=== PATIENT | male | born 1945 | race Caucasian/White ===

== ENCOUNTER → 2018-03-17 06:52 | Outpatient (CLI) | payer MEDICARE, OTHER, SELFPAY ==
[2018-03-17 07:45] LABS: Anion Gap 2 (5-15); BUN 16 mg/dL (7-18); BUN/Creat Ratio 11.3 RATIO (10-20); Calcium,Total 8.7 mg/dL (8.5-10.1); Chloride 109 mmol/L (98-107); Creatinine, Serum 1.41 mg/dL (0.70-1.30); EST Glomerular Filtration Rate 52 mL/min (>60); Est Glom Filt Rate - Afr Amer 63 mL/min (>60); Glucose 97 mg/dL (74-106); Potassium 3.9 mmol/L (3.5-5.1); Sodium Level 140 mmol/L (136-145)
[2018-03-17 08:07] LABS: AST(SGOT) 17 U/L (15-37); Alanine Aminotransfer ALT/SGPT 19 U/L (16-61); Albumin, Serum 3.7 g/dL (3.2-5.0); Alkaline Phosphatase 112 U/L (45-117); Bilirubin, Direct 0.11 mg/dL (0.00-0.30); Cholesterol 148 mg/dL (200); Globulin 3.8 g/dL (2.2-4.2); High Density Lipoprotein 54 mg/dL; Protein, Total 7.5 g/dL (6.4-8.2); Triglycerides 117 mg/dL; Very Low Density Lipoprotein 23 mg/dL (5-40)
[2018-03-17 09:21] LABS: Hemoglobin A1c 5.8 % (4.2-6.3)
== END ==
PROVIDERS: Family Provider Family Medicine; PCP Family Medicine; Visit Provider Internal Medicine Cardiovascular Disease
DX: E78.5 Hyperlipidemia, unspecified (principal); Z79.899 Other long term (current) drug therapy; R73.09 Other abnormal glucose
CPT/HCPCS: 36415; 80048; 80061; 80076; 83036

== ENCOUNTER 2018-03-29 18:59 | Emergency (ER) | payer MEDICARE, OTHER, SELFPAY ==
[2018-03-29 18:59] VITALS: BP 142/77; PULSE 58; RESP 16; TEMP 36.7; O2SAT 98; BMI 19.3
--- NOTE | 2018-03-29 19:12 | CT_ITS ---
STUDY: CT ABDOMEN AND PELVIS WITHOUT CONTRAST REASON FOR EXAM: Male, 72 years old. Low back pain and flank pain x1 month RADIATION DOSAGE (If Supplied By Facility): CTDIvol = ( 6.18 ) mGy, DLP = ( 307.12 ) mGycm TECHNIQUE: Transaxial images were obtained from the dome of the diaphragm to the symphysis pubis without oral contrast, and without intravenous contrast. Sagittal and coronal images were reconstructed. Individualized dose optimization techniques were used for this CT. COMPARISON: September 22, 2010 FINDINGS: The visualized lung bases are unremarkable. Pacer wires right heart. Normal liver. Normal gallbladder and extrahepatic biliary system. Normal spleen. Normal pancreas. Normal bilateral adrenal glands. 2 cm dense right renal cortical lesion may represent a hemorrhagic cyst. This is new since the previous exam however. Normal left kidney. Normal visualized stomach. Normal small intestine. Normal colon. The appendix is visualized and appears normal. Normal abdominal aorta. Normal inferior vena cava. Normal retroperitoneum. Normal urinary bladder. Normal abdominal wall. There are diffuse degenerative changes of the visualized lumbar spine. CT/Abdomen/Pelvis without Cont IMPRESSION: No acute disease. New 2 cm right renal mass. Recommend follow-up CT urogram to exclude neoplasm. Electronically Signed: Silvio Ravi MD at 20:40 EDT , Service support ,
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
--- NOTE | 2018-03-29 19:16 | RAD_ITS ---
STUDY: X-RAY - LUMBAR SPINE REASON FOR EXAM: Male, 72 years old. Low back pain TECHNIQUE: 3 view(s) of the lumbar spine were obtained. COMPARISON: None FINDINGS: Normal lumbar lordosis. There is no substantial scoliosis. There is a normal alignment of the vertebrae. There is multilevel endplate spondylosis of the lumbar vertebrae. There is multi-level degenerative disc disease with multi-level disc space narrowing. The soft tissue structures are unremarkable. RAD/Lumbar Spine 2 or 3 Views IMPRESSION: Degenerative changes of the spine, as detailed above. Electronically Signed: Silvio Ravi MD at 20:40 EDT , Service support ,
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
[2018-03-29 19:38] LABS: Absolute Lymphocyte Count 1.48 X10^3/ul (0.83-4.51); Absolute Neutrophil Count 3.9 X10^3/uL (2.0-7.7); Basophil# 0.05 X10^3/uL; Basophil% 0.8 % (0-1); Eosinophil# 0.16 X10^3/uL; Eosinophils% 2.6 % (0-5); Hemoglobin 13.8 g/dl (13.0-16.5); Lymphocyte # 1.48 X10^3/ul (4.0); Lymphocyte % 24.3 % (19-41); Mean Corp Hgb Conc 32.9 g/gl (32-36); Mean Corpuscular Hgb 30.5 pg (27.0-32.0); Mean Corpuscular Volume 92.7 fL (80-94); Mean Platelet Vol. 10.2 fl (6.2-12.0); Monocyte# 0.47 X10^3/uL; Monocyte% 7.7 % (0-10); Neutrophil # 3.93 X10^3/uL (2.7-7.7); Neutrophil % 64.4 % (47-70); Platelet Count 121 K/mm3 (150-450); RBC Distribution Width CV 13.8 % (11.6-14.6); RBC Distribution Width SD 46.8 fl (35.1-43.9); Red Blood Count 4.53 M/mm3 (4.6-6.2); White Blood Count 6.1 K/mm3 (4.4-11.0)
[2018-03-29] MEDS: Morphine 4 MG/ML Syringe 2 MG IV (19:38)
[2018-03-29] MEDS: Ondansetron 4 MG/2 ML Vial IV (19:39)
[2018-03-29 19:40] LABS: POSITIVE COUNT NO; POSITIVE DIFFERENTIAL NO; POSITIVE MORPHOLOGY NO
[2018-03-29 19:51] LABS: Anion Gap 6 (5-15); BUN 13 mg/dL (7-18); BUN/Creat Ratio 10.7 RATIO (10-20); Calcium,Total 8.8 mg/dL (8.5-10.1); Chloride 107 mmol/L (98-107); Creatinine, Serum 1.22 mg/dL (0.70-1.30); EST Glomerular Filtration Rate 62 mL/min (>60); Est Glom Filt Rate - Afr Amer 75 mL/min (>60); Glucose 86 mg/dL (74-106); Potassium 3.6 mmol/L (3.5-5.1); Sodium Level 141 mmol/L (136-145)
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
[2018-03-29 20:27] LABS: Bacteria 0 SEEN /hpf (None Seen); Mucous, Urine 0 SEEN /hpf (<or=2+); Squamous Epithelial Cells - UA 0 SEEN /hpf (0-5); White Blood Cells 0 SEEN /hpf (0-5)
[2018-03-29 20:38] LABS: Color, Urine Yellow (Yellow); Glucose, Dipstick Normal (Normal); Ketone-Dipstick Negative (Negative); Leukocyte Esterase-Dipstick Negative /ul (Negative); Nitrite-Dipstick Negative (Negative); Occult Blood-Urine 250 /ul (Negative); Protein-Dipstick Negative (Negative); Specific Gravity, Urine 1.015 (1.002-1.030); Urine Bilirubin Dipstick Negative (Negative); Urine Clarity Clear (Clear); Urine Urobilinogen Normal (Normal); Urine pH 6.5 (5.0 - 8.0)
[2018-03-29 20:46] LABS: Amphetamine Urine VISTA NEGATIVE (<1000 ng/mL); Barbiturate Urine VISTA NEGATIVE (< 200 ng/mL); Benzodiazepine Urine VISTA NEGATIVE (< 200 ng/mL); Cocaine Urine VISTA NEGATIVE (< 300 ng/mL); Ecstacy Urine VISTA NEGATIVE (< 500 ng/mL); Methadone Urine VISTA NEGATIVE (< 300 ng/mL); PCP Urine VISTA NEGATIVE (< 25 ng/mL); THC Urine VISTA NEGATIVE (< 50 ng/mL); Vista UDS pH Range 6
[2018-03-29 20:51] LABS: Red Blood Cells-Urine 10-25 SEEN /hpf (0-5)
--- NOTE | 2018-03-29 20:53 | NURSING ---
CALLED CRISIS WAITING FOR MILA TO CALL BACK
--- NOTE | 2018-03-29 21:21 | NURSING ---
MILA CALLED AT 2104 AND SAID SHE IS FINISHING UP AND CASE AND WILL BE IN SHORTLY
--- NOTE | 2018-03-29 23:21 | ED.DEP ---
ED Disposition - Plan for ED Patient: Chief Complaint: Back Instructions: ED Sprain Strain Lumbar Referrals: Jori Stevens MD [Primary Care Provider] -
[2018-03-30 00:21] VITALS: BP 125/61; PULSE 58; RESP 17; O2SAT 96
[2018-03-30 01:23] VITALS: BP 117/60; PULSE 61; RESP 18; O2SAT 97
--- NOTE | 2018-03-30 01:24 | ED.RN ---
PT AND PT EDUCATED ON DISCHARGE INSTRUCTIONS AND FOLLOW UP. MILA CRISIS COUNSELOR AT BEDSIDE TO SPEAK WITH PT. THIS RN GIVES PT AND PT COUNSELING CENTER BUSINESS CARD TO CALL SATURDAY FOR FOLLOW UP. PER MILA, I WILL CALL THE [facility] ON [address] AND LEAVE A VOICEMAIL AND FOLLOW UP WITH THE PT ON SATURDAY. GIVE HIM MY CARD. PT ND PT EDUCATED TO RETURN TO ER FOR ANY NEW OR WORSENED SX AND TO COME IMMEDIATELY TO ER IF THERE IS CONCERN FOR SAFETY/.WELL BEING. PT TO FOLLOW UP WITH DR. SANTIAGO FOR LUMBAR STRAIN. IV D/C AND COVERED WITH 2X2 GAUZE DRESSING AND PAPER TAPE. MINIMAL BLEEDING NOTED. PT DRESSES SELF AND AMBULATES OUT OF DEPT WITH .
== END 2018-03-30 01:34 | disposition home or self-care (01) ==
PROVIDERS: Emergency Provider Emergency Medicine; Family Provider Family Medicine; PCP Family Medicine
DX: S39.012A Strain of muscle, fascia and tendon of lower back, initial encounter (principal); X58.XXXA Exposure to other specified factors, initial encounter; Y93.11 Activity, swimming; Y92.9 Unspecified place or not applicable; Y99.9 Unspecified external cause status; N28.89 Other specified disorders of kidney and ureter; R45.1 Restlessness and agitation; I10 Essential (primary) hypertension; E78.00 Pure hypercholesterolemia, unspecified; K21.9 Gastro-esophageal reflux disease without esophagitis; Z79.899 Other long term (current) drug therapy
CPT/HCPCS: 72100; 74176; 80048; 80307; 80320; 81001; 85025; 96374; 96375; 99283; J7030; J7040; A4216; G0480

== ENCOUNTER → 2018-04-07 12:38 | Outpatient (CLI) | payer MEDICARE, OTHER, SELFPAY ==
--- NOTE | 2018-04-07 13:07 | CT_ITS ---
STUDY: CT ABDOMEN AND PELVIS WITH CONTRAST REASON FOR EXAM: Male, 72 years old. Renal mass RADIATION DOSAGE (If Supplied By Facility): CTDIvol = ( 14.56 ) mGy, DLP = ( 573.88 ) mGycm TECHNIQUE: Transaxial images were obtained from the dome of the diaphragm to the symphysis pubis with oral contrast. 100 ml of Isovue 300 contrast was administered. Sagittal and coronal images were reconstructed. This is a routine CT scan of the abdomen and pelvis. Renal mass protocol was not followed. Individualized dose optimization techniques were used for this CT. COMPARISON: March 29, 2018, September 22, 2010 CT scan abdomen and pelvis FINDINGS: There is a suggestion of air trapping in the lung bases. There is visualization of the defibrillator lead. Normal liver. Normal gallbladder and extrahepatic biliary system. Normal spleen. Normal pancreas. Normal bilateral adrenal glands. Again noted is a 2.5 x 2.2 x 1.6 cm hyperdense mass in the right kidney with Hounsfield units at 65 without contrast on the prior study March 29, 2018. It should be noted this is a portal venous phase study, early arterial and delayed imaging is not performed. After the administration of contrast the Hounsfield units are 65. Normal left kidney. There is a small hiatal hernia. Normal small intestine. Is abundant stool in the colon from the cecum to the rectum. There is contrast within the small and large bowel. There is non-visualization of the appendix. Aorta is partially calcified. Normal inferior vena cava. Normal retroperitoneum. There is a thick-walled appearance of the bladder measuring up to 5.4 mm with mild surrounding stranding. There is a prominent appearance of the seminal vesicles. There is a mildly inhomogeneous borderline enlarged enhancing appearance of the prostate. The prostate measures 4.8 x 3.2 cm. There are bilateral fatty inguinal hernias. There is multilevel disc space narrowing endplate sclerosis spondylosis and vacuum phenomenon. At L2-L3 there is disc space narrowing broad disc osteophyte complex mild to moderate neural foramina narrowing no significant central stenosis. At L3-L4 there is a minimal broad disc bulge without neural foraminal narrowing or central stenosis. At L4-L5 there is a broad disc bulge and mild to moderate neural foraminal narrowing or significant central stenosis. There is facet arthropathy. At L5-S1 there is a broad disc bulge mild neural foramina narrowing or significant central stenosis. There is degenerative change of the SI joints. The bones are somewhat osteopenic especially in the bilateral femoral heads. CT/Abdomen/Pelvis WITH Contrast IMPRESSION: Since September 22, 2010 there is been interval development fairly exophytic hyperdense circumscribed mass measuring 2.5 x 2.2 x 1.6 cm. The Hounsfield units are similar on the contrasted images as the noncontrasted images. This would suggest complexity of a complex cystic or potentially a solid mass. Could consider follow-up ultrasound of the kidneys and consideration for possible biopsy. A complex cyst or hemorrhagic cyst could potentially develop over time in nearly 8 years however well circumscribed neoplasm could potentially have this appearance. Findings are suspicious for cystitis. Prominence of the seminal vesicles, mild enlargement of the prostate. Electronically Signed: Alla Overton MD at 17:24 EDT Tel , Service support ,
== END ==
PROVIDERS: Family Provider Family Medicine; PCP Family Medicine; Visit Provider Family Medicine
DX: N39.0 Urinary tract infection, site not specified (principal); N28.89 Other specified disorders of kidney and ureter
CPT/HCPCS: 74177; 87086; 87088; 87186; Q9967

== ENCOUNTER → 2018-04-11 10:39 | Outpatient (CLI) | payer MEDICARE, OTHER, SELFPAY ==
--- NOTE | 2018-04-11 10:41 | US_ITS ---
STUDY: RENAL ULTRASOUND - COMPLETE REASON FOR EXAM: Male, 72 years old. History of right renal mass. TECHNIQUE: Ultrasound evaluation of the kidneys was performed with real-time and static amador-scale imaging. COMPARISON: Comparison is made with prior CT scan and abdomen dated April 07, 2018. FINDINGS: RIGHT KIDNEY: Normal location of the right kidney, which is normal in size. The right kidney measures 10.5 cm x 5.0 cm x 4.3 cm. There is a normal cortex of the right kidney. The renal cortex measures 1.3 cm. There is evidence of a 2.2 Enoc by 2.4 cm x 2.1 cm solid slightly echogenic mass arising from the lateral midportion of the left kidney. Increased flow is seen on Doppler examination. A neoplastic process should be ruled out. There are no right renal calculi. There is no right hydronephrosis. DISTAL RIGHT URETER: There is non-visualization of the distal right ureter. There is no demonstrated right ureterovesical junction calculus. There is a visualized right ureteral jet. LEFT KIDNEY: Normal location of the left kidney, which is normal in size. The left kidney measures 10.5 cm x 4.4 cm x 5.7 cm. There is a normal cortex of the left kidney. The renal cortex measures 2.5 cm. There is no left renal mass or cyst. There are no left renal calculi. There is no left hydronephrosis. DISTAL LEFT URETER: There is non-visualization of the distal left ureter. There is no demonstrated left ureterovesical junction calculus. There is a visualized left ureteral jet. BLADDER: The distended urinary bladder has a volume of 44 ml. There is a normal wall thickness of the distended urinary bladder. There is no demonstrated mass within the urinary bladder. There are no demonstrated bladder calculi. US/Kidney and Bladder IMPRESSION: 2.2 cm x 2.4 cm x 2.1 cm inhomogeneous solid mass arising from the mid lateral aspect of the right kidney. A neoplastic process should be ruled out. Electronically Signed: Manuelito Marte MD at 15:26 EDT Tel [phone], Service support ,
== END ==
PROVIDERS: Family Provider Family Medicine; PCP Family Medicine; Visit Provider Family Medicine
DX: N28.89 Other specified disorders of kidney and ureter (principal)
CPT/HCPCS: 76770

== ENCOUNTER → 2018-04-17 10:27 | Outpatient (CLI) | payer MEDICARE, OTHER, SELFPAY ==
--- NOTE | 2018-04-17 10:34 | ECHOD_ITS ---
Reason For Study: CARDIOMYOPATHY Procedure This was a 2D Doppler, Color Flow transthoracic echocardiogram. The exam was of adequate technical quality. Exam performed in department. Left Ventricle Normal LV size. Mild global left ventricular systolic dysfunction. The estimated ejection fraction is 40 %. Unable to assess diastolic dysfunction. Right Ventricle Normal RV size. ICD or pacer leads identified within the right ventricle. Normal systolic function. Atria Normal left atrium. The right atrium is mildly enlarged. ICD or pacer leads identified within the right atrium. No doppler evidence for ASD. Mitral Valve There is no mitral annular calcification. Mild diffuse mitral valve thickening. Mild mitral valve prolapse. Mild (1+) mitral valve insufficiency. Tricuspid Valve Normal tricuspid valve. Mild tricuspid valve insufficiency. Right ventricular systolic pressure estimated to be 21 mmHg. Aortic Valve Trisinus/trileaflet aortic valve. Mild diffuse aortic valve thickening. Pulmonic Valve The pulmonic valve is not well visualized. Great Vessels Mildly dilated aortic root. Mildly dilated ascending aorta. Pericardium/Pleural No pericardial effusion. MMode/2D Measurements & Calculations LVIDd: 5.3 cm IVSd: 0.95 cm Ao root diam: 4.1 cm LVIDs: 4.1 cm LVPWd: 0.92 cm LA dimension: 3.3 cm RVDd: 4.0 cm FS: 22.1 % LAV(MOD-bp): 57.7 ml LA A4 area: 17.0 cm2 RA A4 area: 22.7 cm2 LAV(MOD-bp) Indexed: 29.6 ml/m2 LAV(MOD-sp2): 68.9 ml LAV(MOD-sp4): 46.9 ml Doppler Measurements & Calculations MV E max jay: 41.1 cm/sec Lat Peak E' Jay: 4.5 cm/sec Med Peak E' Jay: 8.6 cm/sec MV A max jay: 35.3 cm/sec E/E' lat: 9.2 E/E' med: 4.8 MV E/A: 1.2 Ao V2 max: 74.4 cm/sec LV V1 max: 63.8 cm/sec PA V2 max: 60.8 cm/sec Ao max P.2 mmHg LV V1 max P.6 mmHg PI end-d jay: 76.6 cm/sec TR max jay: 209.3 cm/sec TR max P.5 mmHg Interpretation Summary Mild global left ventricular systolic dysfunction. The estimated ejection fraction is 40 %. The right atrium is mildly enlarged. Mild diffuse mitral valve thickening. Mild mitral valve prolapse. Mild (1+) mitral valve insufficiency. Mild tricuspid valve insufficiency. Mild diffuse aortic valve thickening. Mildly dilated aortic root. Mildly dilated ascending aorta. Right ventricular systolic pressure estimated to be 21 mmHg. Unable to assess diastolic dysfunction. Ordering Physician: Anupam Reece Referring Physician: Jori Stevens Performed By: Brii Keller RDCS, RVT
== END ==
PROVIDERS: Family Provider Family Medicine; PCP Family Medicine; Visit Provider Internal Medicine Cardiovascular Disease
DX: I47.1 Supraventricular tachycardia (principal); I42.9 Cardiomyopathy, unspecified; I71.2 Thoracic aortic aneurysm, without rupture
CPT/HCPCS: 93306

== ENCOUNTER → 2018-04-18 05:53 | Outpatient (CLI) | payer MEDICARE, OTHER, SELFPAY ==
[2018-04-18 07:18] LABS: Platelet Count 150 K/mm3 (150-450)
[2018-04-18 07:28] LABS: International Normalized Ratio 1.1; Partial Thromboplast Time 33.7 Seconds (24.1-36.2); Prothrombin Time (Protime)PT. 14.5 SECONDS (11.7-14.9)
== END ==
PROVIDERS: Family Provider Family Medicine; PCP Family Medicine; Visit Provider Family Medicine
DX: N28.89 Other specified disorders of kidney and ureter (principal)
CPT/HCPCS: 36415; 85049; 85610; 85730

== ENCOUNTER → 2018-04-22 07:47 | Outpatient (CLI) | payer MEDICARE, OTHER, SELFPAY ==
[2018-04-22] VITALS (11 sets, daily range): BP systolic 108–139; BP diastolic 42–78; PULSE 44–64; RESP 14–18; TEMP 36.6; O2SAT 98–100; BMI 18.7
--- NOTE | 2018-04-22 07:54 | CT_ITS ---
PROCEDURE: CT GUIDED PERCUTANEOUS KIDNEY BIOPSY. DATE: April 22, 2018. INDICATION: Male, 72 years old. Right renal mass PHYSICIAN: Manuelito Marte M.D. MEDICATIONS: 1 mg of Versed and 25 mcg of fentanyl intravenously for conscious sedation protocol was followed. Conscious sedation was started at 9:48 AM and terminated at 10:04 AM. Independent monitoring was performed by the department nurse. ACCESS SITE: Lower pole of the right kidney. NEEDLE: 18-gauge core biopsy needle. SPECIMEN: 4 18-gauge cores. EBL: None. COMPLICATIONS: None immediate. RADIATION DOSAGE (If Supplied By Facility): CTDIvol = ( 14.8 ) mGy, DLP = ( 630.46 ) mGycm The risks, benefits, and alternatives to the procedure and sedation were explained to the patient. The specific risk of hemorrhage requiring further treatment or intervention was detailed and accepted. Written informed consent was obtained. The patient was placed on the CT table in the prone position. Multiple axial images were obtained from the lung base through the caudal extent of the kidneys. An appropriate entry site was identified and a karoline made on the skin. The skin overlying the [ ] posterior flank was prepped and draped in sterile fashion. 1% lidocaine was administered subcutaneously for local anesthesia. Initially, a 22 gauge needle was advanced and CT images confirmed good needle position. The 22 gauge needle was then exchanged for an 17 gauge introducer needle which was advanced. Repeat CT images confirmed good needle trajectory and tip position. The introducer needle was then advanced into the periphery of the inferior renal pole, and CT images were again obtained to confirm exact tip location. The inner stylet of the introducer needle was then removed and an 18 gauge coaxial needle was advanced thru the introducer needle and biopsy performed. A total of [4 ] passes were performed and the specimen collected was sent to Pathology for further evaluation. The needle was withdrawn. Hemostasis was achieved with manual compression and a sterile dressing was applied. Repeat CT images of the biopsy area was performed which demonstrated no gross bleeding or hematoma. The patient tolerated the procedure well without immediate complications. The patient was transported to the [floor/recovery area] in stable condition. CT/Biopsy/Inj or Needle Placement IMPRESSION: Successful CT guided percutaneous kidney biopsy. Electronically Signed: Manuelito Marte MD at 10:39 EDT Tel [phone], Service support ,
--- NOTE | 2018-04-22 10:00 | KI_PTH ---
PATIENT: BENITO HILL LOC: CT U#:[id number] AGE/SX: 80/M ROOM: RE04/22/[address]: Dr. 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 COMMENT The tissue fragments received are very minute and represent a papillary renal lesion. The differential diagnosis includes papillary carcinoma, papillary adenoma, Xp11 translocation carcinoma, papillary oncocytoma and clear cell tubulopapillary carcinoma. This distinction cannot be accurately determined based on minute needle core biopsies. Clinical correlation is required. MICROSCOPIC DESCRIPTION Sections demonstrate very minute fragments of a papillary renal lesion demonstrating bland nuclei and extensive hemosiderin deposition. The remainder of the tissue submitted is adipose tissue. ELECTRON MICROSCOPY: The tissue submitted for electron microscopy is entirely composed of nondiagnostic fibroadipose tissue. Electron microscopy is not performed. GROSS DESCRIPTION The specimen is received in transport medium and consists of very minute fragments of adipose tissue and red-merida soft tissue measuring <1.0cms x <0.1cms. The specimen is divided for histology and electron microscopy. The specimen is sent entirely to [facility] for diagnosis.
== END ==
PROVIDERS: Family Provider Family Medicine; PCP Family Medicine; Visit Provider Family Medicine
DX: N28.89 Other specified disorders of kidney and ureter (principal)
CPT/HCPCS: 50200; 77012; 88305; 88313; 88346; 99156; 99157; J7040; A4216

== ENCOUNTER → 2018-05-07 12:28 | Outpatient (CLI) | payer MEDICARE, OTHER, SELFPAY ==
--- NOTE | 2018-05-07 12:30 | CT_ITS ---
STUDY: CTA CHEST REASON FOR EXAM: Male, 72 years old. Thoracic aortic aneurysm. RADIATION DOSAGE (If Supplied By Facility): CTDIvol = ( 6.73 ) mGy, DLP = ( 203.01 ) mGycm TECHNIQUE: The examination was performed with the intravenous administration of 100 ml of Isovue 370 contrast material. Post-processing of the angiographic images was performed, with multiplanar reformation and 3D reconstruction. Individualized dose optimization techniques were used for this CT. COMPARISON: 2 portable upright AP views of the chest March 04, 2017. FINDINGS: The generator of a cardiac pacemaker/AICD again noted in the soft tissues of the left anterior chest wall. Its lead passes from the left subclavian vein to the right ventricle. Normal enhancement of the main pulmonary artery and right and left pulmonary arteries. Normal enhancement of the bilateral peripheral pulmonary arteries. There is no demonstrated pulmonary embolism. The diameter of the aortic root is 4.4 x 4.75 cm (series 601 image 119, series 6 and image 154). The mid descending aorta is 3.75 x 3.8 cm (series 6 on image 110, series 602 image 149). There is mild atherosclerotic calcification of the aortic arch with tortuosity, which measures 2.8 x 2.7 cm. The mid descending thoracic aorta is 2.7 x 2.75 cm, and shows very mild atherosclerotic calcification. There is no demonstrated aortic dissection. Normal heart and pericardium. Coarse calcifications are noted in a subcarinal lymph node and right hilar node. Normal left hilum. Normal visualized trachea and bronchi. The lungs are well expanded. Emphysematous changes predominate in the upper lung pope. Mild irregular density consistent with chronic scarring seen in the anterolateral periphery of the right lung base, with some adjacent distortion of the pleural fissure. There are subtle groundglass densities of uncertain etiology and significance in the left upper lobe and left lower lobe at the mid chest. Punctate calcified granulomata seen in the anterior periphery of the right upper lobe (series 2 image 146 and (and in the posterior periphery of the superior segment of the left lower lobe (series 6 and image 214). Normal pleura. Normal chest wall structures. There are diffuse degenerative changes of the thoracic spine. Normal visualized upper abdomen. CT/CTA Chest W/WO Contrast IMPRESSION: 1. No demonstrated pulmonary embolism or arterial dissection. 2. Borderline distention of the aortic root, but the caliber of the remaining thoracic aorta is within normal limits. 3. Findings old calcified granulomatous disease, and focus of irregular scarring in the anterolateral periphery of the right lung base. 4. Emphysematous changes also present, predominating in the upper lung pope. 5. Subtle groundglass densities in the left midlung. A low-grade inflammatory process might have this appearance. 6. Left subclavian cardiac pacer/AICD present. Electronically Signed: Ryley Molina MD at 16:04 EDT , Service support ,
[2018-05-07 12:51] LABS: CREATININE FINGERSTICK 1.1 mg/dL (0.70-1.30); EGFR FINGERSTICK > 60.0000 mL/min (>60)
== END ==
PROVIDERS: Family Provider Family Medicine; PCP Family Medicine; Visit Provider Internal Medicine Cardiovascular Disease
DX: I71.2 Thoracic aortic aneurysm, without rupture (principal); I42.9 Cardiomyopathy, unspecified; I34.1 Nonrheumatic mitral (valve) prolapse; I49.3 Ventricular premature depolarization
CPT/HCPCS: 71275; Q9967

== ENCOUNTER 2018-07-02 16:33 | Inpatient (IN) | payer MEDICARE, OTHER, SELFPAY ==
[2018-06-26 10:06] VITALS: BP 121/69; PULSE 44; RESP 18; TEMP 36.8; O2SAT 99; BMI 19.9
--- NOTE | 2018-06-26 11:03 | RAD_ITS ---
STUDY: X-RAY CHEST REASON FOR EXAM: Male, 72 years old. Pre-op. TECHNIQUE: PA and lateral views of the chest. COMPARISON: CTA of the chest, May 07, 2018. Chest, March 04, 2017. FINDINGS: The lungs are hyperexpanded findings consistent with COPD. There is no new mass or infiltrate. There is no demonstrated pleural abnormality. Normal size heart. Stable cardiac pacemaker. Normal mediastinum and araceli. Normal visualized pulmonary arteries. There is atherosclerotic calcification of the aortic arch with tortuosity. There are diffuse degenerative changes of the visualized thoracic spine. Normal visualized ribs, clavicles, and shoulders. There is no demonstrated abnormality of the visualized soft tissue structures of the upper abdomen. RAD/Chest PA and Lateral IMPRESSION: No COPD without acute cardiopulmonary disease. Stable cardiac pacemaker. Electronically Signed: Mitchell Irving DO at 22:26 EDT Tel [phone], Service support ,
--- NOTE | 2018-06-26 11:13 | EKG12_ITS ---
Test Reason : PRE-OP Blood Pressure : / mmHG Vent. Rate : 042 BPM Atrial Rate : 042 BPM P-R Int : 198 ms QRS Dur : 104 ms QT Int : 502 ms P-R-T Axes : 083 039 076 degrees QTc Int : 419 ms Marked sinus bradycardia Septal infarct , age undetermined Abnormal ECG Confirmed by CHARLA GRAVES, STARR ([id number]), editor in chief JOÃO SANTIAGO ([id number]) on 06/30/2018 1:37:53 PM Referred By: Sander Pittman Confirmed By:STARR DUNHAM MD
[2018-06-26 11:41] LABS: Hematocrit 44.1 % (40-54); Hemoglobin 14.3 g/dl (13.0-16.5); Mean Corp Hgb Conc 32.4 g/gl (32-36); Mean Corpuscular Hgb 30.2 pg (27.0-32.0); Mean Corpuscular Volume 93.2 fL (80-94); Mean Platelet Vol. 10.8 fl (6.2-12.0); Platelet Count 106 K/mm3 (150-450); RBC Distribution Width CV 13.5 % (11.6-14.6); RBC Distribution Width SD 46.1 fl (35.1-43.9); Red Blood Count 4.73 M/mm3 (4.6-6.2); Scan Indicated on CBC? Y/N NO; White Blood Count 4.8 K/mm3 (4.4-11.0)
[2018-06-26 11:55] LABS: Color, Urine Yellow (Yellow); Glucose, Dipstick Normal (Normal); Ketone-Dipstick Negative (Negative); Leukocyte Esterase-Dipstick 25 /ul (Negative); Nitrite-Dipstick Negative (Negative); Occult Blood-Urine 25 /ul (Negative); Protein-Dipstick 15 mg/dl (Negative); Specific Gravity, Urine 1.015 (1.002-1.030); Urine Bilirubin Dipstick Negative (Negative); Urine Clarity Clear (Clear); Urine Urobilinogen Normal (Normal); Urine pH 6.5 (5.0 - 8.0)
[2018-06-26 12:31] LABS: ALB/GLOB Ratio 0.9 RATIO (0.9-2.4); AST(SGOT) 18 U/L (15-37); Alanine Aminotransfer ALT/SGPT 20 U/L (16-61); Albumin, Serum 3.6 g/dL (3.2-5.0); Alkaline Phosphatase 74 U/L (45-117); Anion Gap 6 (5-15); BUN 14 mg/dL (7-18); BUN/Creat Ratio 11.2 RATIO (10-20); Calcium,Total 8.7 mg/dL (8.5-10.1); Chloride 107 mmol/L (98-107); Creatinine, Serum 1.25 mg/dL (0.70-1.30); EST Glomerular Filtration Rate 60 mL/min (>60); Est Glom Filt Rate - Afr Amer 73 mL/min (>60); Globulin 4.1 g/dL (2.2-4.2); Glucose 63 mg/dL (74-106); Potassium 4.2 mmol/L (3.5-5.1); Protein, Total 7.7 g/dL (6.4-8.2); Sodium Level 142 mmol/L (136-145)
--- NOTE | 2018-06-26 14:55 | SDCEKG_ITS ---
Test Reason : Blood Pressure : / mmHG Vent. Rate : 043 BPM Atrial Rate : 043 BPM P-R Int : 162 ms QRS Dur : 084 ms QT Int : 500 ms P-R-T Axes : 071 036 075 degrees QTc Int : 422 ms Marked sinus bradycardia Low voltage QRS Septal infarct , age undetermined, cannot be excluded Abnormal ECG Confirmed by CHARLA GRAVES, STARR ([id number]), fan mail editor JOÃO SANTIAGO ([id number]) on 06/30/2018 2:33:28 PM Referred By: Sander Pittman Confirmed By:STARR DUNHAM MD
[2018-07-02] VITALS (18 sets, daily range): BP systolic 99–159; BP diastolic 50–126; PULSE 62–75; RESP 16–67; TEMP 35.9–36.9; O2SAT 94–100; BMI 19.9
--- NOTE | 2018-07-02 07:30 | KID_PTH ---
PATIENT: BENITO HILL LOC: [facility] U#:[id number] AGE/SX: 72/M ROOM: OR314 RE07/03/[address]: Dr. Sander Pittman MD : 1945 BED: 1 DIS: 07/04/2018 SPEC #: [id number] RECD: 07/02/18 11:05 STATUS: GRACE GASTELUM #: [id number] TRINA: 07/02/18 07:[address]: Sander Pittman DEPT: SURGICAL PATHOLOGY RECD BY: Dheeraj Blanton ENTERED: 07/02/18 13:04 SP TYPE: KIDNEY OTHR DR: Dr. 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 See cancer summary below. KIDNEY CANCER SUMMARY: Procedure ? partial nephrectomy Specimen laterality - right Tumor site ? not specified Tumor size ? 2.5 x 2 x 1 cm Tumor focality - unifocal Macroscopic extent of tumor ? tumor limited kidney Histologic type ? papillary renal cell carcinoma Sarcomatoid features ? not identified Tumor necrosis ? not identified Histologic grade (Ruy nuclear grade) - 2 Microscopic tumor extension ? tumor limited to kidney Margins ? margins uninvolved by invasive carcinoma Lymph-Vascular invasion ? not identified Regional lymph nodes ? no lymph nodes submitted or found. Distant metastasis ? not applicable Pathologic findings in non-neoplastic kidney ? insufficient tissue (partial nephrectomy specimen with <5 mm adjacent non-neoplastic kidney). Other tumor and/or tumor-like lesions ? not identified. See comment. PATHOLOGIC STAGE: pT1a pNx Mx The above summary is in compliance with [employer] (CAP) Cancer Protocols Checklist and [place] Joint Committee on Cancer (AJCC), Staging Manual, 8th Ed. SJ:brown 07/04/18 COMMENT Please make reference to previous specimen ([id number]) right renal mass, biopsy with diagnosis of very minute fragment of papillary renal lesion. The tumor shows extensive recent and old hemorrhage with extensive hemosiderin deposition. The tumor shows extensive chronic inflammation and lymphoid aggregate formation at the periphery of the tumor. Case has been reviewed in consultation with Dr. Sharma who concurs with the above diagnosis. IDC:AM MICROSCOPIC DESCRIPTION Slides are reviewed. GROSS DESCRIPTION Received in fixative is one container labeled with the patient's name and designated fractured tumor. The specimen consists of a previously opened tumor with overlying adipose tissue measuring 3.5 x 2.5 x 1.5 cm and weighing 4.7 gm. The surface with overlying adipose tissue is inked black. The previously opened congested and hemorrhagic tumor measures 2.5 x 2 x 1 cm. Also present in the container are detached pieces of congested and hemorrhagic tissue most likely portion of tumor measuring in aggregate 2 x 1 x 0.3 cm. The entire specimen is submitted as follows: 1-5 ? tumor with overlying adipose tissue from one end to another end, 6 ? detached pieces of tissue. / SJ:rg 07/03/18 TC:0 CPT: 97930
[2018-07-02] MEDS: Cefazolin 2 GM in 0.9% Normal Saline 100 ML IV (07:37)
[2018-07-02] MEDS: Bupivacaine Mpf 0.5% 30 ML VIAL (07:39)
--- NOTE | 2018-07-02 10:09 | PCM.OPRPT ---
Report of Operation Date of Procedure: 07/02/18 Pre-Operative Diagnosis: Right renal mass Post-Operative Diagnosis: Same Surgery/Procedure Performed:: Laparoscopic robotic-assisted right partial nephrectomy Description of Surgical Findings:: 72-year-old male who has a mass in the anterior lateral aspect of the right kidney biopsy was inconclusive but suspicious for cancer so today were to proceed with a right partial nephrectomy laparoscopic with robotic assistance. 72-year-old male taken back to the operating room timeout was performed, and transferred to the table supine, he underwent general anesthesia and placement of an endotracheal tube PEN TESTER was Negin the anesthesiologist with Dr. Elizondo, he was then positioned laterally on his left side down right side up the table was fully flexed he was padded with the top leg straight leg bent the arm out to the fleming and the other arm into the arm support. Made sure all the pressure points are padded. He had a magnet placed over his pacemaker and also had transthoracic paced pacing pads placed for caution. The abdomen was shaved prepped and draped in usual sterile fashion inspected the abdomen is very small scaphoid thin male very limited space in the abdomen made a small incision in the superior aspect of the umbilicus and used a Veress needle and pierced through the peritoneal fascia and into the peritoneum using the 2 click technique and once inside the peritoneum was insufflated the abdomen and the peritoneum and the abdomen is insufflated with CO2 gas quite rapidly rapid distention of the abdomen To the abdomen I then made an incision in the umbilicus and then placed my camera trocar trocar immediately recognized that there was small bowel right against the camera trocar had to push the hands down really far to get over the small bowel and then went looked inside the abdomen and inspected the abdomen there was no injuries or any sign of any injury to the intestines or bowels I then placed my right robotic arm my left robotic arm under direct visualization then placed an information technology assistant suction trocar and then once it was docked the right arm is a scissors left and is a pro-grasp and started dissection by first releasing the colon off the kidney incising the white line of Toldt dissected the colon off the kidney laterally I then went up and there was attachments between the liver and the kidney these were released and then I was able to retract the liver off the kidney superiorly and then the kidney introitus fascia was recognized I use a laparoscopic drop and ultrasound with a place an extra 1012 trocar above the midline laterally in order to allow for this laparoscopic ultrasound to come in and we did ultrasonography of the of the kidney and eventually located the tumor laterally anterior with minimal depth into the kidney. Then I dissected down incised through the Gerota's fascia, I then opened up the fascia all the way around the tumor and then dissected down to the capsule of the kidney and then I dissected so I could see the attachment of the tumor to the kidney circumferentially we used the ultrasound to karoline out her markings I then decided to go an off clamp with the dissection and we started teasing our way slowly around the tumor working broadly using suction to identify the proper plane as we got underneath the tumor there is a small violation of the tumor capsule and is a small rupture of the capsule this is immediately recognized course was then corrected for the downward and then I dissected underneath the tumor and then the tumor was then removed and the attachments posteriorly were identified and transected I then placed a fractured tumor into a bag and this was sent off as pathology specimen called fracture tumor since there was a violation of the tumor posteriorly and a fracture I then looked into the base cleared out any other tissue that looked like residual tumor but really got down to the base and there was a clean base cauterized the base extensively once cauterized extensively the base of second time to ensure adequate margins I then placed a Surgicel and FloSeal inside the base I then used a 9 cm CT1 needle with a Humalog clip at the end and suture sutured down with sliding technique to suture down and secure the Surgicel into the defect of the kidney where the tumor was removed. After this was done we lower the to 5 mm of pressure and there was no bleeding from the resection site of the kidney we then extracted the kidney through the 1012 trocar undocked the robot we then closed our umbilical trocar with a Ab Keenan stitch and closed the other potential trochars with a stitch I did put an extra Ab Keenan stitch also manually from the outside to close up the fascia of the umbilicus all the trochars removed under direct visualization there was no evidence of any injury or trauma or damage to the liver: Or bowel the small bowel was distended from the very beginning the case he did have a bowel prep. After this was done then we closed the skin with subcuticular stitches placed bandages on the skin and Steri-Strips patient's anesthetic was reversed he was extubated and taken back to the PACU in good condition. Type of Anesthesia:: General Drains: catalan. - Admit VTE Documentation VTE Present on Admission: No VTE Mechan Device Prophylaxis: SCD's VTE Pharm Prophylaxis ordered?: No Reason prophylaxis not ordered:: Medical Contraindication
[2018-07-02 11:48] LABS: Hematocrit 40.6 % (40-54); Hemoglobin 13.2 g/dl (13.0-16.5); Mean Corp Hgb Conc 32.5 g/gl (32-36); Mean Corpuscular Hgb 30.1 pg (27.0-32.0); Mean Corpuscular Volume 92.5 fL (80-94); Mean Platelet Vol. 10.8 fl (6.2-12.0); Platelet Count 66 K/mm3 (150-450); RBC Distribution Width CV 13.3 % (11.6-14.6); RBC Distribution Width SD 45.1 fl (35.1-43.9); Red Blood Count 4.39 M/mm3 (4.6-6.2); White Blood Count 5.3 K/mm3 (4.4-11.0)
[2018-07-02 11:49] LABS: Scan Indicated on CBC? Y/N NO
[2018-07-02 11:58] LABS: Anion Gap 9 (5-15); BUN 15 mg/dL (7-18); BUN/Creat Ratio 12.9 RATIO (10-20); Calcium,Total 8.1 mg/dL (8.5-10.1); Chloride 107 mmol/L (98-107); Creatinine, Serum 1.16 mg/dL (0.70-1.30); EST Glomerular Filtration Rate 66 mL/min (>60); Est Glom Filt Rate - Afr Amer 79 mL/min (>60); Estimated Creatinine Clearance 58.94 ml/min; Glucose 117 mg/dL (74-106); Sodium Level 142 mmol/L (136-145)
[2018-07-02] MEDS: Amiodarone 200 MG Tablet 100 MG PO (15:13)
[2018-07-02] MEDS: Metoprolol Tartrate 25 MG Tablet 12.5 MG PO ×2 (15:14→22:15)
[2018-07-02] MEDS: Acetaminophen 325 MG Tablet 650 MG PO (15:15)
--- NOTE | 2018-07-02 15:26 | NURSING ---
pt reports intermittent dizziness with movement. resting quietly with eyes closed but easily arouses. vitals checked and rechecked no gross deficits noted.
[2018-07-02] MEDS: Cefazolin 1 GM/50 ML BAG IV ×2 (15:34→23:18)
[2018-07-02] MEDS: Lactated Ringers 1,000 ML 125 ML IV (16:39)
[2018-07-02] MEDS: Atorvastatin Calcium 10 MG Tablet PO (22:15)
[2018-07-02] MEDS: Docusate Sodium 100 MG Capsule 200 MG PO (22:16)
[2018-07-02] MEDS: 0.9% NaCl Peripheral Flush Adult/Peds IV ×2 (22:17→22:27)
[2018-07-02] MEDS: Morphine 2 MG/ML Syringe IV (22:26)
[2018-07-03] VITALS (7 sets, daily range): BP systolic 99–116; BP diastolic 40–62; PULSE 50–58; RESP 16–18; TEMP 36.8–37.2; O2SAT 95–98
[2018-07-03] MEDS: Lactated Ringers 1,000 ML 125 ML IV ×3 (00:52→16:49)
[2018-07-03 06:27] LABS: Hematocrit 37.4 % (40-54); Hemoglobin 12.6 g/dl (13.0-16.5); Mean Corp Hgb Conc 33.7 g/gl (32-36); Mean Corpuscular Hgb 30.7 pg (27.0-32.0); Mean Platelet Vol. 10.6 fl (6.2-12.0); Platelet Count 82 K/mm3 (150-450); RBC Distribution Width CV 12.9 % (11.6-14.6); RBC Distribution Width SD 42.4 fl (35.1-43.9); Red Blood Count 4.11 M/mm3 (4.6-6.2); Scan Indicated on CBC? Y/N NO
[2018-07-03 06:38] LABS: Anion Gap 10 (5-15); BUN 20 mg/dL (7-18); BUN/Creat Ratio 16.8 RATIO (10-20); Calcium,Total 7.7 mg/dL (8.5-10.1); Chloride 104 mmol/L (98-107); Creatinine, Serum 1.19 mg/dL (0.70-1.30); EST Glomerular Filtration Rate 64 mL/min (>60); Est Glom Filt Rate - Afr Amer 77 mL/min (>60); Estimated Creatinine Clearance 57.45 ml/min; Glucose 119 mg/dL (74-106); Potassium 4.5 mmol/L (3.5-5.1); Sodium Level 139 mmol/L (136-145)
[2018-07-03] MEDS: Ketorolac 15 MG/ML Vial IV ×2 (08:19→22:44)
[2018-07-03] MEDS: Docusate Sodium 100 MG Capsule 200 MG PO ×2 (08:33→22:41)
--- NOTE | 2018-07-03 08:36 | NURSING ---
Clemente taken out at this time. Pt nervous about getting oob and started having hiccups. Nurses plan was to get him up and walk and sit in chair but pt refused despite encouragement. Is willing to try this afternoon.
--- NOTE | 2018-07-03 11:45 | NURSING ---
BP still continues to be on the lower side, this nurse will not give lopressor yet but will monitor bp.
[2018-07-03] MEDS: Amiodarone 200 MG Tablet 100 MG PO (12:07)
[2018-07-03] MEDS: Acetaminophen 325 MG Tablet 650 MG PO (12:11)
[2018-07-03] MEDS: Calcium Carbonate 500 MG Tablet PO (16:11)
--- NOTE | 2018-07-03 17:11 | NURSING ---
Pt has not voided since this nurse took catalan out this morning. This nurse had pt attempt to use urinal. Unable to use standing up. Bladder Scanned for 423cc. Pt feels urge to urinate. This nurse paged Dr. Pittman and informed him of the above. Orders to re-insert Catalan and Start flomax.
[2018-07-03] MEDS: Tamsulosin HCl 0.4 MG Capsule PO (17:46)
[2018-07-03] MEDS: Pantoprazole Sodium 40 MG Tablet PO (17:46)
[2018-07-03] MEDS: Metoprolol Tartrate 25 MG Tablet 12.5 MG PO (22:40)
[2018-07-03] MEDS: Atorvastatin Calcium 10 MG Tablet PO (22:40)
[2018-07-03] MEDS: 0.9% NaCl Peripheral Flush Adult/Peds IV (22:45)
[2018-07-04] MEDS: Lactated Ringers 1,000 ML 125 ML IV (01:32)
[2018-07-04 04:00] VITALS: BP 122/72; PULSE 52; RESP 16; TEMP 36.4; O2SAT 97
--- NOTE | 2018-07-04 08:27 | PCM.DC.URO ---
Discharge Diet: Light diet - advance as tolerated Discharge Activity: May Not Drive May shower in (days): 1 Lifting Restrictions: no lifting. Call your doctor if your incision/area has: Continuous Slow Oozing, Sudden Increased Bleeding, Increased Pain/ Swelling, Increased Redness, Foul Smelling Discharge, Swelling at the incision site Call your doctor if you observe: Fever of 101 or Higher Suture Line Care: Avoid Pulling/Pushing, Avoid Pinching/Bending Instructions: Discharge Instructions for Nephrectomy Allergies/Adverse Reactions: Allergies No Known Allergies Allergy (Verified 03/29/18 19:12) Medications to take at Discharge Acetaminophen [Tylenol Arthritis] 650 mg PO PRN PRN 03/09/14 Aspirin [Aspirin, Baby] 81 mg PO DAILY@0800 03/09/14 metoprolol tartrate 25 mg tablet 12.5 mg PO BID #90 tab 11/04/17 simvastatin 20 mg tablet 20 mg PO QHS #90 tab 12/18/17 amiodarone 200 mg tablet 100 mg PO DAILY #45 tab 03/10/18 potassium chloride 40 mEq/15 mL oral liquid 40 meq PO QDAY #1419 ml 05/30/18 Docusate Sodium [Colace] 100 mg PO BID #20 cap 07/04/18 Hydrocodone/Acetaminophen [[employer] 5-325 Tablet] 1 ea PO Q6H PRN PRN 5 Days #10 tab 07/04/18 The following prescriptions were given: Hydrocodone/Acetaminophen [[employer] 5-325 Tablet] 1 ea PO Q6H PRN PRN 5 Days #10 tab PRN Reason: Pain Docusate Sodium [Colace] 100 mg PO BID #20 cap Primary Care Physician: Jori Stevens MD [Primary Care Provider] - Test Results: Test results from this visit will be discussed in further detail at your follow-up appointment, if applicable. Please Follow Up With: Sander Pittman MD When: please call to make an appointment.
[2018-07-04 08:54] VITALS: BP 104/61; PULSE 55; RESP 18; TEMP 36.6; O2SAT 97
[2018-07-04] MEDS: Bisacodyl 10 MG Suppository RECTAL (08:57)
[2018-07-04] MEDS: Amiodarone 200 MG Tablet 100 MG PO (08:58)
[2018-07-04] MEDS: Docusate Sodium 100 MG Capsule 200 MG PO (08:58)
[2018-07-04] MEDS: Pantoprazole Sodium 40 MG Tablet PO (09:00)
--- NOTE | 2018-07-04 09:13 | PCM.DC.SUM ---
Discharge Date and Diagnosis Date of Admission: 07/02/18 Date of Discharge: 07/04/18 - Secondary Discharge Diagnosis Chronic Problems (Last Reviewed 03/26/18 @ 14:59 by Meena Pavon) Presence of cardiac defibrillator (Chronic) Nonrheumatic mitral (valve) prolapse (Chronic) Premature ventricular contraction (Chronic) Cardiomyopathy (Chronic) Hyperlipidemia (Chronic) Hypertension (Chronic) Thoracic aortic aneurysm without rupture (Chronic) Hospital Course and Treatment Operations: - - Robotic right partial nephrectomy Procedures: None Summary of Care Provided: The patient is a 72 year old male who underwent a robotic right partial nephrectomy for renal mass, final pathology pending. He was discharged home on postoperative day #2 tolerating regular diet ambulating catheter would be removed for voiding trial he will follow-up next week in my office. Discharge Diet: Light diet - advance as tolerated Discharge Activity: May Not Drive May shower in (days): 1 Call your doctor if your incision/area has: Continuous Slow Oozing, Sudden Increased Bleeding, Increased Pain/ Swelling, Increased Redness, Foul Smelling Discharge, Swelling at the incision site Call your doctor if you observe: Fever of 101 or Higher Suture Line Care: Avoid Pulling/Pushing, Avoid Pinching/Bending Home Medications: Medications to take at Discharge Acetaminophen [Tylenol Arthritis] 650 mg PO PRN PRN 03/09/14 Aspirin [Aspirin, Baby] 81 mg PO DAILY@0800 03/09/14 metoprolol tartrate 25 mg tablet 12.5 mg PO BID #90 tab 11/04/17 simvastatin 20 mg tablet 20 mg PO QHS #90 tab 12/18/17 amiodarone 200 mg tablet 100 mg PO DAILY #45 tab 03/10/18 potassium chloride 40 mEq/15 mL oral liquid 40 meq PO QDAY #1419 ml 05/30/18 Docusate Sodium [Colace] 100 mg PO BID #20 cap 07/04/18 Hydrocodone/Acetaminophen [[place] 5-325 Tablet] 1 ea PO Q6H PRN PRN 5 Days #10 tab 07/04/18 Following Prescrptions Were Given to Patient: Hydrocodone/Acetaminophen [[place] 5-325 Tablet] 1 ea PO Q6H PRN PRN 5 Days #10 tab PRN Reason: Pain Docusate Sodium [Colace] 100 mg PO BID #20 cap Primary Care Physician: Jori Stevens MD [Primary Care Provider] - Please Follow Up With: Sander Pittman MD When: please call to make an appointment. Patient Instructions: Discharge Instructions for Nephrectomy Medical Necessity - Tobacco Use Smoking Status: Former smoker Meaningful Use Info Meaningful Use Diagnoses (Choose all that apply): None applicable
--- NOTE | 2018-07-04 09:53 | NURSING ---
Cornejo out at 0900 and pt walked in [place] and now sitting in chair. encouraged I.S and to drink water.
[2018-07-04 11:36] VITALS: PULSE 58
[2018-07-04] MEDS: Metoprolol Tartrate 25 MG Tablet 12.5 MG PO (11:36)
--- NOTE | 2018-07-04 11:40 | NURSING ---
Pt walked in [place] again. Is now sitting up and eating regular diet. Pt voided 400cc of urine on own. Denies feelings of urge to void after voiding.
[2018-07-04 11:41] VITALS: BP 104/72; PULSE 58; RESP 18; TEMP 36.4; O2SAT 96
== END 2018-07-04 12:27 | disposition home or self-care (01) | DRG 657 ==
LOC: SDC 16:44 → MS3 07-03 06:41
PROVIDERS: Admitting Provider Urology; Family Provider Family Medicine; PCP Family Medicine; Visit Provider Urology
PROC: (CPT 50543; principal; 2018-07-02 07:10)
DX: D41.01 Neoplasm of uncertain behavior of right kidney (principal); I42.9 Cardiomyopathy, unspecified; E78.5 Hyperlipidemia, unspecified; I71.2 Thoracic aortic aneurysm, without rupture; Z95.810 Presence of automatic (implantable) cardiac defibrillator; I10 Essential (primary) hypertension; Z87.891 Personal history of nicotine dependence; I49.3 Ventricular premature depolarization
CPT/HCPCS: 36415; 71046; 80048; 80053; 81002; 85027; 86850; 86900; 86920; 86922; 88307; 93005; J7120; A4216; J2405

== ENCOUNTER → 2018-07-16 07:31 | Outpatient (CLI) | payer MEDICARE, OTHER, SELFPAY ==
[2018-07-16 08:19] LABS: Hemoglobin 13.2 g/dl (13.0-16.5); Mean Corpuscular Hgb 30.3 pg (27.0-32.0); Mean Platelet Vol. 10.3 fl (6.2-12.0); Platelet Count 130 K/mm3 (150-450); RBC Distribution Width CV 13.2 % (11.6-14.6); RBC Distribution Width SD 43.4 fl (35.1-43.9); Red Blood Count 4.35 M/mm3 (4.6-6.2); White Blood Count 5.4 K/mm3 (4.4-11.0)
[2018-07-16 08:20] LABS: Scan Indicated on CBC? Y/N NO
[2018-07-16 08:41] LABS: Anion Gap 9 (5-15); BUN 14 mg/dL (7-18); BUN/Creat Ratio 11.5 RATIO (10-20); Calcium,Total 8.9 mg/dL (8.5-10.1); Chloride 106 mmol/L (98-107); Creatinine, Serum 1.22 mg/dL (0.70-1.30); EST Glomerular Filtration Rate 62 mL/min (>60); Est Glom Filt Rate - Afr Amer 75 mL/min (>60); Glucose 99 mg/dL (74-106); Potassium 4.1 mmol/L (3.5-5.1); Sodium Level 142 mmol/L (136-145)
== END ==
PROVIDERS: Family Provider Family Medicine; PCP Family Medicine; Visit Provider Urology
DX: C64.9 Malignant neoplasm of unspecified kidney, except renal pelvis (principal); Z90.5 Acquired absence of kidney
CPT/HCPCS: 36415; 80048; 85027

== ENCOUNTER → 2018-10-08 16:22 | Outpatient (CLI) | payer MEDICARE, OTHER, SELFPAY ==
--- NOTE | 2018-10-08 16:24 | CT_ITS ---
WORSENING MATA'S RT FRONTAL TECHNIQUE: Multiple axial images were obtained of the brain with and without IV contrast. A radiation dose optimization technique was used for this scan. IV Contrast dosage and agent: 50 cc Isovue 370 contrast COMPARISON: None FINDINGS: Mild cerebral cortical atrophy. Normal ventricles. No hydrocephalus. Castanon-white matter differentiation appears normal. No intracranial mass, hemorrhage, or acute disease. Posterior fossa structures are on remarkable. No suspicious extra-axial fluid collection. Left carotid atherosclerotic calcifications. As visualized, the mastoids and paranasal sinuses appear clear. CT/Brain/Head W/WO Contrast IMPRESSION: 1. No hemorrhage or acute disease. 2. Mild cerebral cortical atrophy. Individualized dose optimization techniques were used for this CT. at 0309 Reported and signed by: Martin Riley MD Electronically Signed: Martin Riley, at 3:07 EST Tel , Service support ,
[2018-10-08 16:41] LABS: CREATININE FINGERSTICK 0.9 mg/dL (0.70-1.30)
== END ==
PROVIDERS: Family Provider Family Medicine; PCP Family Medicine; Referring Provider Family Medicine; Visit Provider Family Medicine
DX: R51 Headache (principal)
CPT/HCPCS: 70470; Q9967

== ENCOUNTER → 2018-10-23 11:00 | Outpatient (CLI) | payer MEDICARE, OTHER, SELFPAY ==
--- NOTE | 2018-10-23 11:14 | RAD_ITS ---
STUDY: X-RAY CHEST REASON FOR EXAM: Male, 73 years old. History of renal cancer TECHNIQUE: PA and lateral views of the chest. COMPARISON: Comparison is made with prior study dated June 26, 2018. FINDINGS: Hyperinflation. Stable bilateral apical scarring. There is no demonstrated pleural abnormality. Normal size heart. A right-sided unipolar pacemaker is seen. Normal mediastinum and araceli. Normal visualized pulmonary arteries. There is atherosclerotic calcification of the aortic arch with tortuosity. There are diffuse degenerative changes of the visualized thoracic spine. Normal visualized ribs, clavicles, and shoulders. There is no demonstrated abnormality of the visualized soft tissue structures of the upper abdomen. RAD/Chest PA and Lateral IMPRESSION: Hyperinflation. Electronically Signed: Manuelito Marte MD at 13:03 EST Tel [phone], Service support ,
[2018-10-23 12:36] LABS: Hematocrit 43.6 % (40-54); Hemoglobin 14.4 g/dl (13.0-16.5); Mean Corpuscular Volume 93.8 fL (80-94); Mean Platelet Vol. 11.2 fl (6.2-12.0); Platelet Count 117 K/mm3 (150-450); RBC Distribution Width CV 13.4 % (11.6-14.6); RBC Distribution Width SD 44.4 fl (35.1-43.9); Red Blood Count 4.65 M/mm3 (4.6-6.2); White Blood Count 4.8 K/mm3 (4.4-11.0)
[2018-10-23 12:37] LABS: Scan Indicated on CBC? Y/N NO
[2018-10-23 13:18] LABS: Anion Gap 6 (5-15); BUN 17 mg/dL (7-18); BUN/Creat Ratio 14.2 RATIO (10-20); Chloride 106 mmol/L (98-107); EST Glomerular Filtration Rate 63 mL/min (>60); Est Glom Filt Rate - Afr Amer 76 mL/min (>60); Glucose 69 mg/dL (74-106); Potassium 4.4 mmol/L (3.5-5.1); Sodium Level 140 mmol/L (136-145)
--- OUTSIDE RECORDS SUMMARY | 2018-12-18 13:44 | XMS RPT_ITS ---
:1945 Author Organization [place] Support Name Relationship Address Phone JEREMY HILL Unavailable [address] + [place] [address] R Unavailable Unavailable Unavailable JEREMY HILL Unavailable [address] + [place] [address] R Unavailable Unavailable Unavailable JEREMY HILL Unavailable [address] + [place] [address] R Unavailable Unavailable Unavailable JEREMY HILL Unavailable [address] + [place] [address] R Unavailable Unavailable Unavailable JEREMY HILL Unavailable [address] + [place] [address] R Unavailable Unavailable Unavailable JEREMY HILL Unavailable [address] [phone] [place] [address] R Unavailable Unavailable Unavailable JEREMY HILL Unavailable [address] + [place] [address] R Unavailable Unavailable Unavailable JEREMY HILL Unavailable [address] + [place] [address] R Unavailable Unavailable Unavailable JEREMY HILL Unavailable [address] + [place] [address] R Unavailable Unavailable Unavailable JEREMY HILL Unavailable [address] + [place] [address] R Unavailable Unavailable Unavailable JEREMY HILL Unavailable [address] + [place] [address] R Unavailable Unavailable Unavailable JEREMY HILL Unavailable [address] + [place] [address] R Unavailable Unavailable Unavailable JEREMY HILL Unavailable [address] [phone] [place] [address] R Unavailable Unavailable Unavailable JEREMY HILL Unavailable [address] + [place] [address] R Unavailable Unavailable Unavailable JEREMY HILL Unavailable [address] [phone] [place] [address] R Unavailable Unavailable Unavailable JEREMY HILL Unavailable [address] + [place] [address] R Unavailable Unavailable Unavailable JEREMY HILL Unavailable [address] + [place] [address] R Unavailable Unavailable Unavailable Care Team Providers Name Role Phone Meena Pavon Attending Unavailable Moodispaw, Anupam Attending Unavailable Moodispaw, Anupam Referring Unavailable Stevens, Jori Primary Care Unavailable Poppy Colón Attending Unavailable Stevens, Jori Referring Unavailable Stevens, Jori Primary Care Unavailable Moodispaw, Anupam Attending Unavailable Stevens, Jori Referring Unavailable Stevens, Jori Primary Care Unavailable Stevens, Jori Primary Care Unavailable Laura Doe Attending Unavailable Stevens, Jori Attending Unavailable Stevens, Jori Referring Unavailable Stevens, Jori Primary Care Unavailable Stevens, Jori Attending Unavailable Stevens, Jori Referring Unavailable Stevens, Jori Primary Care Unavailable Moodispaw, Anupam Attending Unavailable Moodispaw, Anupam Referring Unavailable Stevens, Jori Primary Care Unavailable Stevens, Jori Attending Unavailable Stevens, Jori Referring Unavailable Stevens, Jori Primary Care Unavailable Stevens, Jori Attending Unavailable Stevens, Jori Referring Unavailable Stevens, Jori Primary Care Unavailable Moodispaw, Anupam Attending Unavailable Moodispaw, Anupam Referring Unavailable Stevens, Jori Primary Care Unavailable Moodispanick, Anupam Attending Unavailable Toya, Sander Cunningham Attending Unavailable Toya, Sander Cunningham Referring Unavailable Stevens, Jori Primary Care Unavailable Toya, Sander Cunningham Admitting Unavailable Toya, Sander Cunningham Attending Unavailable Stevens, Jori Primary Care Unavailable MoodispawAnupam Attending Unavailable Toya, Sander Cunningham Referring Unavailable Stevens, Jori Attending Unavailable Stevens, Jori Referring Unavailable Stevens, Jori Primary Care Unavailable Toya, Sander Cunningham Attending Unavailable Toya, Sander Cunningham Referring Unavailable Stevens, Jori Primary Care Unavailable PROBLEMS PROBLEMS DATE TYPE CONDITION / CODE ATTENDING STATUS SOURCE 10/23/2018 Unknown Z85.528 - Personal Sander Pittman Active [place] history of other [facility] malignant neoplasm of Hospital kidney / Repository Z85.528(ICD-10) 10/23/2018 Unknown C64.9 - Malignant Toya, Sander Active [place] neoplasm of [facility] unspecified kidney, Hospital except renal pelvis / Repository C64.9(ICD-10) 07/04/2018 Unknown R93.429 - Abnormal Sander Pittman Active [place] radiologic findings on [facility] diagnostic imaging of Hospital unspecified kidney / Repository R93.429(ICD-10) 07/31/2018 Unknown R94.31 - Abnormal Moodispaw, Active [place] electrocardiogram [facility] [ECG] [EKG] / Hospital R94.31(ICD-10) Repository 07/31/2018 Unknown R00.1 - Bradycardia, Moodispaw, Active [place] unspecified / [facility] R00.1(ICD-10) Hospital Repository 04/22/2018 Unknown N28.89 - Other Jori Stevens Active [place] specified disorders of [facility] kidney and ureter / Hospital N28.89(ICD-10) Repository 03/26/2018 Unknown I47.1 - Moodispaw, Active [place] Supraventricular [facility] tachycardia / Hospital I47.1(ICD-10) Repository 03/26/2018 Unknown I47.2 - Ventricular Moodispaw, Active [place] tachycardia / [facility] I47.2(ICD-10) Hospital Repository 03/26/2018 Unknown Z95.810 - Presence of Moodispaw, Active [place] automatic [facility] (implantable) cardiac Hospital defibrillator / Repository Z95.810(ICD-10) 03/26/2018 Unknown I42.9 - Moodispaw, Active [place] Cardiomyopathy, [facility] unspecified / Hospital I42.9(ICD-10) Repository PROCEDURES PROCEDURES No Procedure Records FoundRESULTS RESULTS CHEST PA AND LATERAL Observed: 10/23/2018 Status: F Source: [place] 11:14 AM [facility] REPOSITORY [facility] Imaging Services [address] [place] [address] Chest PA and Lateral MR#: [id number] Acct: [id number] Name: BENITO HILL Rep #: [id number] : 1945 M 73 From: Manuelito Marte MD PCP: Jori Stevens MD Status: REG CLI Study: Chest PA and Lateral Date of Exam: 10/23/18 Exam# [id number] Ordering Dr: Sander Pittman MD STUDY: X-RAY CHEST REASON FOR EXAM: Male, 73 years old. History of renal cancer TECHNIQUE: PA and lateral views of the chest. COMPARISON: Comparison is made with prior study dated June 26, 2018. FINDINGS: Hyperinflation. Stable bilateral apical scarring. There is no demonstrated pleural abnormality. Normal size heart. A right-sided unipolar pacemaker is seen. Normal mediastinum and araceli. Normal visualized pulmonary arteries. There is atherosclerotic calcification of the aortic arch with tortuosity. There are diffuse degenerative changes of the visualized thoracic spine. Normal visualized ribs, clavicles, and shoulders. There is no demonstrated abnormality of the visualized soft tissue structures of the upper abdomen. RAD/Chest PA and Lateral IMPRESSION: Hyperinflation. Electronically Signed: Manuelito Marte MD at 13:03 EST Tel [phone], Service support , CC: Jori Stevens MD; Sander Pittman MD Paving Plant Operator: Signed CBC-COMPLETE BLOOD CNT Collected: 10/23/2018 Status: F Source: [place] NO DIFF 11:07 AM [facility] TYPE CODE TESTS RESULT OUT OF RANGE REFERENCE UNITS LAB L100.1000 4.4-11.0 K/mm3 Normal WBC 4.8 LAB L100.1200 4.6-6.2 M/mm3 Normal RBC 4.65 LAB L100.1300 13.0-16.5 g/dl Normal HGB 14.4 LAB L100.1400 40-54 % Normal HCT 43.6 LAB L100.1500 80-94 fL Normal MCV 93.8 LAB L100.1600 27.0-32.0 pg Normal MCH 31.0 LAB L100.1700 32-36 g/gl Normal MCHC 33.0 LAB L100.1810 11.6-14.6 % Normal RDW CV 13.4 LAB L100.1820 35.1-43.9 fl High RDW SD 44.4 LAB L100.1900 150-450 K/mm3 Low PLT 117 LAB L100.2000 6.2-12.0 fl Normal MPV 11.2 Performed By: #### L100.0500 #### [facility] [address] [place], [place], [address] BASIC METABOLIC Collected: 10/23/2018 Status: F Source: [place] PROFILE (BMP) 11:07 AM [facility] TYPE CODE TESTS RESULT OUT OF RANGE REFERENCE UNITS LAB L501.0100 74-106 mg/dL Low GLU 69 Result Comment: Please note revised GLUCOSE reference range effective 2017. LAB L501.1000 7-18 mg/dL Normal BUN 17 LAB L501.1100 0.70-1.30 mg/dL Normal CREAT,SERUM 1.20 Result Comment: The validity of the calculated GFR AND GFRAA in patients over 70 years has not been determined. Clinical correlation is essential. LAB L501.1110 >60 mL/min Normal EST GFR 63 Result Comment: Non- GFR Calc LAB L501.1115 >60 mL/min Normal EST GFR - AA 76 Result Comment: GFR Calc LAB L501.1300 10-20 RATIO Normal BUN/CRE 14.2 LAB L501.2200 8.5-10.1 mg/dL CA Normal 9.0 LAB L501.5300 136-145 mmol/L NA Normal 140 LAB L501.5600 3.5-5.1 mmol/L K Normal 4.4 LAB L501.5900 98-107 mmol/L CL Normal 106 LAB L501.6100 21.0-32.0 mmol/L Normal CO2 28.0 LAB L501.6200 5-15 Normal GAP 6 Performed By: #### L500.2500 #### [facility] [address] [place], [place], [address] CREATININE FINGERSTICK Collected: 10/08/2018 Status: F Source: [place] 4:38 PM [facility] TYPE CODE TESTS RESULT OUT OF RANGE REFERENCE UNITS LAB L9100.0210 0.70-1.30 mg/dL Normal CREATININE WB 0.9 Performed By: #### L9100.0200 #### [facility] Point of Care [address] [place] [address] BRAIN/HEAD W/WO Observed: 10/08/2018 Status: F Source: [place] CONTRAST 4:24 PM [facility] Imaging Services [address] [place] [address] Brain/Head W/WO Contrast MR#: [id number] Acct: [id number] Name: BENITO HILL Rep #: [id number] : 1945 M 73 From: Martin Riley MD PCP: Jori Stevens MD Status: REG CLI Study: Brain/Head W/WO Contrast Date of Exam: 10/08/18 Exam# [id number] Ordering Dr: Jori Stevens MD WORSENING MATA'S RT FRONTAL TECHNIQUE: Multiple axial images were obtained of the brain with and without IV contrast. A radiation dose optimization technique was used for this scan. IV Contrast dosage and agent: 50 cc Isovue 370 contrast COMPARISON: None FINDINGS: Mild cerebral cortical atrophy. Normal ventricles. No hydrocephalus. Castanon-white matter differentiation appears normal. No intracranial mass, hemorrhage, or acute disease. Posterior fossa structures are on remarkable. No suspicious extra-axial fluid collection. Left carotid atherosclerotic calcifications. As visualized, the mastoids and paranasal sinuses appear clear. CT/Brain/Head W/WO Contrast IMPRESSION: 1. No hemorrhage or acute disease. 2. Mild cerebral cortical atrophy. Individualized dose optimization techniques were used for this CT. at 0309 Reported and signed by: Martin Riley MD Electronically Signed: Martin Riley, at 3:07 EST Tel , Service support , CC: Jori Stevens MD Paving Plant Operator: Signed CBC-COMPLETE BLOOD CNT Collected: 07/16/2018 Status: F Source: [place] NO DIFF 7:37 AM [facility] TYPE CODE TESTS RESULT OUT OF RANGE REFERENCE UNITS LAB L100.1000 4.4-11.0 K/mm3 Normal WBC 5.4 LAB L100.1200 4.6-6.2 M/mm3 Low RBC 4.35 LAB L100.1300 13.0-16.5 g/dl Normal HGB 13.2 LAB L100.1400 40-54 % Normal HCT 40.0 LAB L100.1500 80-94 fL Normal MCV 92.0 LAB L100.1600 27.0-32.0 pg Normal MCH 30.3 LAB L100.1700 32-36 g/gl Normal MCHC 33.0 LAB L100.1810 11.6-14.6 % Normal RDW CV 13.2 LAB L100.1820 35.1-43.9 fl Normal RDW SD 43.4 LAB L100.1900 150-450 K/mm3 Low PLT 130 LAB L100.2000 6.2-12.0 fl Normal MPV 10.3 Performed By: #### L100.0500 #### [facility] [address] [place], [address] BASIC METABOLIC Collected: 07/16/2018 Status: F Source: [place] PROFILE ([facility]) 7:37 AM [facility] TYPE CODE TESTS RESULT OUT OF RANGE REFERENCE UNITS LAB L501.0100 74-106 mg/dL Normal GLU 99 Result Comment: Please note revised GLUCOSE reference range effective 2017. LAB L501.1000 7-18 mg/dL Normal BUN 14 LAB L501.1100 0.70-1.30 mg/dL Normal CREAT,SERUM 1.22 Result Comment: The validity of the calculated GFR AND GFRAA in patients over 70 years has not been determined. Clinical correlation is essential. LAB L501.1110 >60 mL/min Normal EST GFR 62 Result Comment: Non- GFR Calc LAB L501.1115 >60 mL/min Normal EST GFR - AA 75 Result Comment: GFR Calc LAB L501.1300 10-20 RATIO Normal BUN/CRE 11.5 LAB L501.2200 8.5-10.1 mg/dL CA Normal 8.9 LAB L501.5300 136-145 mmol/L NA Normal 142 LAB L501.5600 3.5-5.1 mmol/L K Normal 4.1 LAB L501.5900 98-107 mmol/L CL Normal 106 LAB L501.6100 21.0-32.0 mmol/L Normal CO2 27.0 LAB L501.6200 5-15 Normal GAP 9 Performed By: #### L500.2500 #### [facility] [address] [place], [address] DISCHARGE SUMMARY Observed: 07/04/2018 Status: F Source: [place] 9:14 AM [facility] Medical Records Department [address] [place] [address] Discharge Summary 07/04/18 0913 MR#: [id number] Acct: [id number] Name: BENITO HILL Rep #: [id number] : 1945 72 From: Sander Pittman MD PCP: Jori Stevens MD Status: ADM KARYN Y Location: [place] [id number] Discharge Date and Diagnosis Date of Admission: 07/02/18 Date of Discharge: 07/04/18 - Secondary Discharge Diagnosis Chronic Problems (Last Reviewed 03/26/18 @ 14:59 by Meena Pavon) Presence of cardiac defibrillator (Chronic) Nonrheumatic mitral (valve) prolapse (Chronic) Premature ventricular contraction (Chronic) Cardiomyopathy (Chronic) Hyperlipidemia (Chronic) Hypertension (Chronic) Thoracic aortic aneurysm without rupture (Chronic) Hospital Course and Treatment Operations: - - Robotic right partial nephrectomy Procedures: None Summary of Care Provided: The patient is a 72 year old male who underwent a robotic right partial nephrectomy for renal mass, final pathology pending. He was discharged home on postoperative day #2 tolerating regular diet ambulating catheter would be removed for voiding trial he will follow-up next week in my office. Discharge Diet: Light diet - advance as tolerated Discharge Activity: May Not Drive May shower in (days): 1 Call your doctor if your incision/area has: Continuous Slow Oozing, Sudden Increased Bleeding, Increased Pain/ Swelling, Increased Redness, Foul Smelling Discharge, Swelling at the incision site Call your doctor if you observe: Fever of 101 or Higher Suture Line Care: Avoid Pulling/Pushing, Avoid Pinching/Bending Home Medications: Medications to take at Discharge Acetaminophen [Tylenol Arthritis] 650 mg PO PRN PRN 03/09/14 Aspirin [Aspirin, Baby] 81 mg PO DAILY@0800 03/09/14 metoprolol tartrate 25 mg tablet 12.5 mg PO BID #90 tab 11/04/17 simvastatin 20 mg tablet 20 mg PO QHS #90 tab 12/18/17 amiodarone 200 mg tablet 100 mg PO DAILY #45 tab 03/10/18 potassium chloride 40 mEq/15 mL oral liquid 40 meq PO QDAY #1419 ml 05/30/18 Docusate Sodium [Colace] 100 mg PO BID #20 cap 07/04/18 Hydrocodone/Acetaminophen [Anthony 5-325 Tablet] 1 ea PO Q6H PRN PRN 5 Days #10 tab 07/04/18 Following Prescrptions Were Given to Patient: Hydrocodone/Acetaminophen [Anthony 5-325 Tablet] 1 ea PO Q6H PRN PRN 5 Days #10 tab PRN Reason: Pain Docusate Sodium [Colace] 100 mg PO BID #20 cap Primary Care Physician: Jori Stevens MD [Primary Care Provider] - Please Follow Up With: Sander Pittman MD When: please call to make an appointment. Patient Instructions: Discharge Instructions for Nephrectomy Medical Necessity - Tobacco Use Smoking Status: Former smoker Meaningful Use Info Meaningful Use Diagnoses (Choose all that apply): None applicable 07/04/18913 <Electronically signed by Sander Pittman MD> Date Sander Pittman MD Cosigner Signature (if applicable): Date CC: Jori Stevens MD; Sander Pittman MD Signed DISCHARGE INSTRUCTION Observed: 07/04/2018 Status: F Source: [place] 8:29 AM [facility] Medical Records Department [address] [place] [address] Instructions for Home/Discharge Instructions 07/04/1827 MR#: [id number] Acct: [id number] Name: BENITO HILL Rep #: [id number] : 1945 72 From: Sander Pittman MD PCP: Jori Stevens MD Status: ADM KAYRN Discharge Diet: Light diet - advance as tolerated Discharge Activity: May Not Drive May shower in (days): 1 Lifting Restrictions: no lifting. Call your doctor if your incision/area has: Continuous Slow Oozing, Sudden Increased Bleeding, Increased Pain/ Swelling, Increased Redness, Foul Smelling Discharge, Swelling at the incision site Call your doctor if you observe: Fever of 101 or Higher Suture Line Care: Avoid Pulling/Pushing, Avoid Pinching/Bending Instructions: Discharge Instructions for Nephrectomy Allergies/Adverse Reactions: Allergies No Known Allergies Allergy (Verified 03/29/18 19:12) Medications to take at Discharge Acetaminophen [Tylenol Arthritis] 650 mg PO PRN PRN 03/09/14 Aspirin [Aspirin, Baby] 81 mg PO DAILY@0800 03/09/14 metoprolol tartrate 25 mg tablet 12.5 mg PO BID #90 tab 11/04/17 simvastatin 20 mg tablet 20 mg PO QHS #90 tab 12/18/17 amiodarone 200 mg tablet 100 mg PO DAILY #45 tab 03/10/18 potassium chloride 40 mEq/15 mL oral liquid 40 meq PO QDAY #1419 ml 05/30/18 Docusate Sodium [Colace] 100 mg PO BID #20 cap 07/04/18 Hydrocodone/Acetaminophen [Anthony 5-325 Tablet] 1 ea PO Q6H PRN PRN 5 Days #10 tab 07/04/18 The following prescriptions were given: Hydrocodone/Acetaminophen [Anthony 5-325 Tablet] 1 ea PO Q6H PRN PRN 5 Days #10 tab PRN Reason: Pain Docusate Sodium [Colace] 100 mg PO BID #20 cap Primary Care Physician: Jori Stevens MD [Primary Care Provider] - Test Results: Test results from this visit will be discussed in further detail at your follow-up appointment, if applicable. Please Follow Up With: Sander Pittman MD When: please call to make an appointment. 07/04/18828 <Electronically signed by Sander Pittman MD> Date Sander Pittman MD CC: Jori Stevens MD CBC-COMPLETE BLOOD CNT Collected: 07/03/2018 Status: F Source: [place] NO DIFF 5:50 AM [facility] TYPE CODE TESTS RESULT OUT OF RANGE REFERENCE UNITS LAB L100.1000 4.4-11.0 K/mm3 Normal WBC 10.0 LAB L100.1200 4.6-6.2 M/mm3 Low RBC 4.11 LAB L100.1300 13.0-16.5 g/dl Low HGB 12.6 LAB L100.1400 40-54 % Low HCT 37.4 LAB L100.1500 80-94 fL Normal MCV 91.0 LAB L100.1600 27.0-32.0 pg Normal MCH 30.7 LAB L100.1700 32-36 g/gl Normal MCHC 33.7 LAB L100.1810 11.6-14.6 % Normal RDW CV 12.9 LAB L100.1820 35.1-43.9 fl Normal RDW SD 42.4 LAB L100.1900 150-450 K/mm3 Low PLT 82 LAB L100.2000 6.2-12.0 fl Normal MPV 10.6 Performed By: #### L100.0500 #### [facility] [address] [place], [address] BASIC METABOLIC Collected: 07/03/2018 Status: F Source: [place] PROFILE ([facility]) 5:50 AM [facility] TYPE CODE TESTS RESULT OUT OF RANGE REFERENCE UNITS LAB L501.0100 74-106 mg/dL High GLU 119 Result Comment: Fasting Glucose result from 100 to 125 mg/dL suggests IMPAIRED HOMEOSTASIS per A.D.A. criteria. Please note revised GLUCOSE reference range effective 2017. LAB L501.1000 7-18 mg/dL High BUN 20 LAB L501.1100 0.70-1.30 mg/dL Normal CREAT,SERUM 1.19 Result Comment: The validity of the calculated GFR AND GFRAA in patients over 70 years has not been determined. Clinical correlation is essential. LAB L501.1110 >60 mL/min Normal EST GFR 64 Result Comment: Non- GFR Calc LAB L501.1115 >60 mL/min Normal EST GFR - AA 77 Result Comment: GFR Calc LAB L501.1255 ml/min Normal Estimated CRCL 57.45 LAB L501.1300 10-20 RATIO Normal BUN/CRE 16.8 LAB L501.2200 8.5-10 mg/dL Low .1 CA 7.7 LAB L501.5300 136-14 mmol/L Normal 5 NA 139 LAB L501.5600 3.5-5. mmol/L Normal 1 K 4.5 LAB L501.5900 98-107 mmol/L Normal CL 104 LAB L501.6100 21.0-3 mmol/L Normal 2.0 CO2 25.0 LAB L501.6200 5-15 Normal GAP 10 Performed By: #### L500.2500 #### [facility] [address] [place], [place], [address] CBC-COMPLETE BLOOD CNT Collected: 07/02/2018 Status: F Source: [place] NO DIFF 11:28 AM [facility] Order Comment: Comments: To be done in PACU TYPE CODE TESTS RESULT OUT OF RANGE REFERENCE UNITS LAB L100.1000 4.4-11.0 K/mm3 Normal WBC 5.3 LAB L100.1200 4.6-6.2 M/mm3 Low RBC 4.39 LAB L100.1300 13.0-16.5 g/dl Normal HGB 13.2 LAB L100.1400 40-54 % Normal HCT 40.6 LAB L100.1500 80-94 fL Normal MCV 92.5 LAB L100.1600 27.0-32.0 pg Normal MCH 30.1 LAB L100.1700 32-36 g/gl Normal MCHC 32.5 LAB L100.1810 11.6-14.6 % Normal RDW CV 13.3 LAB L100.1820 35.1-43.9 fl High RDW SD 45.1 LAB L100.1900 150-450 K/mm3 Low PLT 66 LAB L100.2000 6.2-12.0 fl Normal MPV 10.8 Performed By: #### L100.0500 #### [facility] [address] [facility]. [place], [place], [address] BASIC METABOLIC Collected: 07/02/2018 Status: F Source: [place] PROFILE (BMP) 11:28 AM [facility] Order Comment: TO BE DONE IN PACU Comments: To be done in PACU TYPE CODE TESTS RESULT OUT OF RANGE REFERENCE UNITS LAB L501.0100 74-106 mg/dL High GLU 117 Result Comment: Fasting Glucose result from 100 to 125 mg/dL suggests IMPAIRED HOMEOSTASIS per A.D.A. criteria. Please note revised GLUCOSE reference range effective 2017. LAB L501.1000 7-18 mg/dL Normal BUN 15 LAB L501.1100 0.70-1.30 mg/dL Normal CREAT,SERUM 1.16 Result Comment: The validity of the calculated GFR AND GFRAA in patients over 70 years has not been determined. Clinical correlation is essential. LAB L501.1110 >60 mL/min Normal EST GFR 66 Result Comment: Non- GFR Calc LAB L501.1115 >60 mL/min Normal EST GFR - AA 79 Result Comment: GFR Calc LAB L501.1255 ml/min Normal Estimated CRCL 58.94 LAB L501.1300 10-20 RATIO Normal BUN/CRE 12.9 LAB L501.2200 8.5-10 mg/dL Low .1 CA 8.1 LAB L501.5300 136-14 mmol/L Normal 5 NA 142 LAB L501.5600 3.5-5. mmol/L Normal 1 K 4.0 LAB L501.5900 98-107 mmol/L Normal CL 107 LAB L501.6100 21.0-3 mmol/L Normal 2.0 CO2 26.0 LAB L501.6200 5-15 Normal GAP 9 Performed By: #### L500.2500 #### [facility] [address] [facility] [place], [address] OPERATIVE REPORT Observed: 07/02/2018 Status: F Source: [place] 10:18 AM [facility] Medical Records Department [address] [place] [address] Operative Report 07/02/18 1009 MR#: [id number] Acct: [id number] Name: BENITO HILL Adilia Rep #: [id number] : 1945 72 From: Sander Pittman MD PCP: Jori Stevens MD Status: [facility] Y Location: [place] [address] Report of Operation Date of Procedure: 07/02/18 Pre-Operative Diagnosis: Right renal mass Post-Operative Diagnosis: Same Surgery/Procedure Performed:: Laparoscopic robotic-assisted right partial nephrectomy Description of Surgical Findings:: 72-year-old male who has a mass in the anterior lateral aspect of the right kidney biopsy was inconclusive but suspicious for cancer so today were to proceed with a right partial nephrectomy laparoscopic with robotic assistance. 72-year-old male taken back to the operating room timeout was performed, and transferred to the table supine, he underwent general anesthesia and placement of an endotracheal tube AUDIOLOGY TECHNICIAN was Negin the anesthesiologist with Dr. Elizondo, he was then positioned laterally on his left side down right side up the table was fully flexed he was padded with the top leg straight leg bent the arm out to the fleming and the other arm into the arm support. Made sure all the pressure points are padded. He had a magnet placed over his pacemaker and also had transthoracic paced pacing pads placed for caution. The abdomen was shaved prepped and draped in usual sterile fashion inspected the abdomen is very small scaphoid thin male very limited space in the abdomen made a small incision in the superior aspect of the umbilicus and used a Veress needle and pierced through the peritoneal fascia and into the peritoneum using the 2 click technique and once inside the peritoneum was insufflated the abdomen and the peritoneum and the abdomen is insufflated with CO2 gas quite rapidly rapid distention of the abdomen To the abdomen I then made an incision in the umbilicus and then placed my camera trocar trocar immediately recognized that there was small bowel right against the camera trocar had to push the hands down really far to get over the small bowel and then went looked inside the abdomen and inspected the abdomen there was no injuries or any sign of any injury to the intestines or bowels I then placed my right robotic arm my left robotic arm under direct visualization then placed an budget assistant suction trocar and then once it was docked the right arm is a scissors left and is a pro-grasp and started dissection by first releasing the colon off the kidney incising the white line of Toldt dissected the colon off the kidney laterally I then went up and there was attachments between the liver and the kidney these were released and then I was able to retract the liver off the kidney superiorly and then the kidney introitus fascia was recognized I use a laparoscopic drop and ultrasound with a place an extra 1012 trocar above the midline laterally in order to allow for this laparoscopic ultrasound to come in and we did ultrasonography of the of the kidney and eventually located the tumor laterally anterior with minimal depth into the kidney. Then I dissected down incised through the Gerota's fascia, I then opened up the fascia all the way around the tumor and then dissected down to the capsule of the kidney and then I dissected so I could see the attachment of the tumor to the kidney circumferentially we used the ultrasound to karoline out her markings I then decided to go an off clamp with the dissection and we started teasing our way slowly around the tumor working broadly using suction to identify the proper plane as we got underneath the tumor there is a small violation of the tumor capsule and is a small rupture of the capsule this is immediately recognized course was then corrected for the downward and then I dissected underneath the tumor and then the tumor was then removed and the attachments posteriorly were identified and transected I then placed a fractured tumor into a bag and this was sent off as pathology specimen called fracture tumor since there was a violation of the tumor posteriorly and a fracture I then looked into the base cleared out any other tissue that looked like residual tumor but really got down to the base and there was a clean base cauterized the base extensively once cauterized extensively the base of second time to ensure adequate margins I then placed a Surgicel and FloSeal inside the base I then used a 9 cm CT1 needle with a Humalog clip at the end and suture sutured down with sliding technique to suture down and secure the Surgicel into the defect of the kidney where the tumor was removed. After this was done we lower the to 5 mm of pressure and there was no bleeding from the resection site of the kidney we then extracted the kidney through the 1012 trocar undocked the robot we then closed our umbilical trocar with a Ab Keenan stitch and closed the other potential trochars with a stitch I did put an extra Ab Keenan stitch also manually from the outside to close up the fascia of the umbilicus all the trochars removed under direct visualization there was no evidence of any injury or trauma or damage to the liver: Or bowel the small bowel was distended from the very beginning the case he did have a bowel prep. After this was done then we closed the skin with subcuticular stitches placed bandages on the skin and Steri-Strips patient's anesthetic was reversed he was extubated and taken back to the PACU in good condition. Type of Anesthesia:: General Drains: catalan. - Admit VTE Documentation VTE Present on Admission: No VTE Mechan Device Prophylaxis: SCD's VTE Pharm Prophylaxis ordered?: No Reason prophylaxis not ordered:: Medical Contraindication 07/02/18 1018 <Electronically signed by Sander Pittman MD> Date Sander Pittman MD CC: Jori Stevens MD; Sander Pittman MD Signed KIDNEY PARTIAL/TOTAL Observed: 07/02/2018 Status: F Source: DC NEPHRECT 7:30 AM [facility] Patient: BENITO HILL : 1945 (72/M) Acct Num: [id number] Phys: Toya GRAVES,Sander Cunningham Unit Num: [id number] Loc: MS3 [id number] Specimen: [id number] Received: 07/02/18 - 1105 Spec Type: KIDNEY TISSUES TISSUES: Kidney, NOS COMMENT Please make reference to previous specimen ([id number]) right renal mass, biopsy with diagnosis of very minute fragment of papillary renal lesion. The tumor shows extensive recent and old hemorrhage with extensive hemosiderin deposition. The tumor shows extensive chronic inflammation and lymphoid aggregate formation at the periphery of the tumor. Case has been reviewed in consultation with Dr. Sharma who concurs with the above diagnosis. IDC:AM GROSS DESCRIPTION Received in fixative is one container labeled with the patient's name and designated fractured tumor. The specimen consists of a previously opened tumor with overlying adipose tissue measuring 3.5 x 2.5 x 1.5 cm and weighing 4.7 gm. The surface with overlying adipose tissue is inked black. The previously opened congested and hemorrhagic tumor measures 2.5 x 2 x 1 cm. Also present in the container are detached pieces of congested and hemorrhagic tissue most likely portion of tumor measuring in aggregate 2 x 1 x 0.3 cm. The entire specimen is submitted as follows: 1-5 tumor with overlying adipose tissue from one end to another end, 6 detached pieces of tissue. / LARA:brown 07/03/18 TC :0 CPT: 39721 HEADER OPERATION: Laparoscopic robotic partial right nephrectomy PRE-OP DIAGNOSIS: Renal mass TISSUE SUBMITTED: Fractured tumor MICROSCOPIC DESCRIPTION Slides are reviewed. 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 See cancer summary below. KIDNEY CANCER SUMMARY: Procedure partial nephrectomy Specimen laterality - right Tumor site not specified Tumor size 2.5 x 2 x 1 cm Tumor focality - unifocal Macroscopic extent of tumor tumor limited kidney Histologic type papillary renal cell carcinoma Sarcomatoid features not identified Tumor necrosis not identified Histologic grade (Ruy nuclear grade) - 2 Microscopic tumor extension tumor limited to kidney Margins margins uninvolved by invasive carcinoma Lymph-Vascular invasion not identified Regional lymph nodes no lymph nodes submitted or found. Distant metastasis not applicable Pathologic findings in non-neoplastic kidney insufficient tissue (partial nephrectomy specimen with <5 mm adjacent non-neoplastic kidney). Other tumor and/or tumor-like lesions not identified. See comment. PATHOLOGIC STAGE: pT1a pNx Mx The above summary is in compliance with [employer] (CAP) Cancer Protocols Checklist and [place] Joint Committee on Cancer (AJCC), Staging Manual, 8th Ed. SJ:brown 07/04/18 Signed Suresh Morales 07/07/18 <signature on file> Performed By: #### PKID #### [facility] [address] [place], [address] 12 LEAD ELECTROCARDIOGRAM Observed: 06/30/2018 Status: F Source: [place] 2:33 PM [facility] Cardiovascular Services [address] [place] [address] EKG - [facility] 06/26/18 0947 MR#: [id number] Acct: [id number] Name: BENITO HILL Rep #: [id number] : 1945 72 From: Anupam Dunham MD Attending Dr: Sander Pittman MD Status: PRE [facility] Ordering Dr: Sander Pittman MD Date: 06/26/18 Location: [facility] Sex: M C Admitted: Test Reason : Blood Pressure : / mmHG Vent. Rate : 043 BPM Atrial Rate : 043 BPM P-R Int : 162 ms QRS Dur : 084 ms QT Int : 500 ms P-R-T Axes : 071 036 075 degrees QTc Int : 422 ms Marked sinus bradycardia Low voltage QRS Septal infarct , age undetermined, cannot be excluded Abnormal ECG Confirmed by ANUPAM DUNHAM MD ([id number]), editor producer JOÃO STEVENS ([id number]) on 06/30/2018 2:33:28 PM Referred By: Sander Pittman Confirmed By:ANUPAM DUNHAM MD 06/30/18 1433 Date Anupam Dunham MD CC: Jori Stevens MD; Sander Pittman MD Date Dictated: 06/26/1847 Date Transcribed: 06/26/18946 Paving Plant Operator: Signed 12 LEAD ELECTROCARDIOGRAM Observed: 06/30/2018 Status: F Source: DC 1:38 PM [facility] Cardiovascular Services [address] [place] [address] 12 Lead EKG 06/26/18 1121 MR#: [id number] Acct: [id number] Name: BENITO HILL Rep #: [id number] : 1945 72 From: Anupam Dunham MD Attending Dr: Toya GRAVES,Sander Cunningham Status: PRE SDC Ordering Dr: Sander Pittman MD Date: 06/26/18 Location: [facility] Sex: M C Admitted: Test Reason : PRE-OP Blood Pressure : / mmHG Vent. Rate : 042 BPM Atrial Rate : 042 BPM P-R Int : 198 ms QRS Dur : 104 ms QT Int : 502 ms P-R-T Axes : 083 039 076 degrees QTc Int : 419 ms Marked sinus bradycardia Septal infarct , age undetermined Abnormal ECG Confirmed by ANUPAM DUNHAM MD ([id number]), editor producer JOÃO STEVENS ([id number]) on 06/30/2018 1:37:53 PM Referred By: Sander Pittman Confirmed By:ANUPAM DUNHAM MD 06/30/18 1338 Date Anupam Dunham MD CC: Jori Stevens MD; Sander Pittman MD Signed CHEST PA AND LATERAL Observed: 06/26/2018 Status: F Source: DC 11:02 AM [facility] REPOSITORY [facility] Imaging Services [address] [place] [address] Chest PA and Lateral MR#: [id number] Acct: [id number] Name: BENITO HILL Rep #: [id number] : 1945 72 From: Mitchell Irving DO PCP: Jori Stevens MD Status: PRE HIC Study: Chest PA and Lateral Date of Exam: 06/26/18 Exam# [id number] Ordering Dr: Sander Pittman MD STUDY: X-RAY CHEST REASON FOR EXAM: Male, 72 years old. Pre-op. TECHNIQUE: PA and lateral views of the chest. COMPARISON: CTA of the chest, May 07, 2018. Chest, March 04, 2017. FINDINGS: The lungs are hyperexpanded findings consistent with COPD. There is no new mass or infiltrate. There is no demonstrated pleural abnormality. Normal size heart. Stable cardiac pacemaker. Normal mediastinum and araceli. Normal visualized pulmonary arteries. There is atherosclerotic calcification of the aortic arch with tortuosity. There are diffuse degenerative changes of the visualized thoracic spine. Normal visualized ribs, clavicles, and shoulders. There is no demonstrated abnormality of the visualized soft tissue structures of the upper abdomen. RAD/Chest PA and Lateral IMPRESSION: No COPD without acute cardiopulmonary disease. Stable cardiac pacemaker. Electronically Signed: Mitchell Irving DO at 22:26 EDT Tel [phone], Service support , CC: Jori Stevens MD; Sander Pittman MD Paving Plant Operator: Signed CBC-COMPLETE BLOOD CNT Collected: 06/26/2018 Status: F Source: DC NO DIFF 10:46 AM [facility] TYPE CODE TESTS RESULT OUT OF RANGE REFERENCE UNITS LAB L100.1000 4.4-11.0 K/mm3 Normal WBC 4.8 LAB L100.1200 4.6-6.2 M/mm3 Normal RBC 4.73 LAB L100.1300 13.0-16.5 g/dl Normal HGB 14.3 LAB L100.1400 40-54 % Normal HCT 44.1 LAB L100.1500 80-94 fL Normal MCV 93.2 LAB L100.1600 27.0-32.0 pg Normal MCH 30.2 LAB L100.1700 32-36 g/gl Normal MCHC 32.4 LAB L100.1810 11.6-14.6 % Normal RDW CV 13.5 LAB L100.1820 35.1-43.9 fl High RDW SD 46.1 LAB L100.1900 150-450 K/mm3 Low PLT 106 LAB L100.2000 6.2-12.0 fl Normal MPV 10.8 Performed By: #### L100.0500 #### [facility] [address] [place], [address] URINALYSIS, ROUTINE Collected: 06/26/2018 Status: F Source: [place] (DIPSTICK) 10:46 AM [facility] Order Comment: How was Urine Obtained? CLEAN CATCH TYPE CODE TESTS RESULT OUT OF RANGE REFERENCE UNITS LAB L400.3000 Yellow COLOR Normal Yellow LAB L400.3050 Clear Normal CLARITY Clear LAB L400.3200 Normal mg/dl Normal GLUCOSE, UR Normal LAB L400.3300 Negative mg/dL Normal BILIRUBIN URINE Negative LAB L400.3400 Negative mg/dl Normal KETONE UR Negative LAB L400.3465 1.002-1.030 Normal SP.GR. DIPSTX 1.015 LAB L400.3550 5.0 - 8.0 pH UR Normal 6.5 LAB L400.3600 Negative mg/dl High PROT 15 DIPSTX LAB L400.3700 Normal mg/dl Normal UROBILI Normal LAB L400.3750 Negative Normal NITRITE UR Negative LAB L400.3780 Negative /ul High 25 OCCULT BLOOD-UR LAB L400.3800 Negative /ul High LEUK 25 ESTERASE Performed By: #### L400.2010 #### [facility] [address] [place], [address] COMPREHENSIVE METABOLIC Collected: 06/26/2018 Status: F Source: DC [place] 10:46 AM [facility] TYPE CODE TESTS RESULT OUT OF RANGE REFERENCE UNITS LAB L501.0100 74-106 mg/dL Low GLU 63 Result Comment: Please note revised GLUCOSE reference range effective 2017. LAB L501.1000 7-18 mg/dL Normal BUN 14 LAB L501.1100 0.70-1.30 mg/dL Normal CREAT,SERUM 1.25 Result Comment: The validity of the calculated GFR AND GFRAA in patients over 70 years has not been determined. Clinical correlation is essential. LAB L501.1110 >60 mL/min Normal EST GFR 60 Result Comment: Non- GFR Calc LAB L501.1115 >60 mL/min Normal EST GFR - AA 73 Result Comment: GFR Calc LAB L501.1255 ml/min Normal Estimated CRCL 54.70 LAB L501.1300 10-20 RATIO Normal BUN/CRE 11.2 LAB L501.1500 6.4-8. g/dL Normal 2 T PROT 7.7 LAB L501.1800 3.2-5. g/dL Normal 0 ALB 3.6 LAB L501.1950 2.2-4. g/dL Normal 2 GLOB 4.1 LAB L501.2000 0.9-2. RATIO Normal 4 A/G 0.9 LAB L501.2200 8.5-10 mg/dL Normal .1 CA 8.7 LAB L501.4100 15-37 U/L Normal AST 18 LAB L501.4305 45-117 U/L Normal ALK P 74 LAB L501.4405 16-61 U/L Normal ALT 20 LAB L501.4600 0.20-1 mg/dL Normal .00 T BILI 0.40 LAB L501.5300 136-14 mmol/L Normal 5 NA 142 LAB L501.5600 3.5-5. mmol/L Normal 1 K 4.2 LAB L501.5900 98-107 mmol/L Normal CL 107 LAB L501.6100 21.0-3 mmol/L Normal 2.0 CO2 29.0 LAB L501.6200 5-15 Normal GAP 6 Performed By: #### L500.4050 #### [facility] [address] [place], [address] TYPE AND SCREEN Collected: 06/26/2018 Status: F Source: DC 10:46 AM [facility] Order Comment: Surgery Date: 07/02/18 Hx of Preganancy in last 3 Months No Ever experience any problems with transfusion(s)? N Hx of Transfusion in last 3 Months N CMV NEG?* N Give When? HOLD Irradiated? N Leukodepleted? Y Reason for Type AND Screen/Red Cells: SURGERY Surgery Date: 07/02/18 Time: 899 SURGICAL PROCEDURE: NEPHRECTOMY Type of Surgery: NEPHRECTOMY TYPE CODE TESTS RESULT OUT OF RANGE REFERENCE UNITS LAB B10.0800 B Normal BLOOD TYPE GEL NEGATIVE LAB B100.4000 Normal Antibody NEGATIVE Screen Performed By: #### B101.7475 #### [facility] [address] [place], [address] CREATININE FINGERSTICK Collected: 05/07/2018 Status: F Source: [place] 12:43 PM [facility] TYPE CODE TESTS RESULT OUT OF RANGE REFERENCE UNITS LAB L9100.0210 0.70-1.30 mg/dL Normal CREATININE WB 1.1 LAB L9100.0220 >60 mL/min EGFR WB Normal > 60.0000 Performed By: #### L9100.0200 #### [facility] Point of Care [address] [place] [address] CTA CHEST W/WO Observed: 05/07/2018 Status: F Source: [place] CONTRAST 12:30 PM [facility] Imaging Services [address] [place] [address] CTA Chest W/WO Contrast MR#: [id number] Acct: [id number] Name: BENITO HILL Rep #: [id number] : 1945 M 72 From: Omid Molina MD PCP: Jori Stevens MD Status: REG CLI Study: CTA Chest W/WO Contrast Date of Exam: 05/07/18 Exam# [id number] Ordering Dr: Anupam Dunham MD STUDY: CTA CHEST REASON FOR EXAM: Male, 72 years old. Thoracic aortic aneurysm. RADIATION DOSAGE (If Supplied By Facility): CTDIvol = ( 6.73 ) mGy, DLP = ( 203.01 ) mGycm TECHNIQUE: The examination was performed with the intravenous administration of 100 ml of Isovue 370 contrast material. Post-processing of the angiographic images was performed, with multiplanar reformation and 3D reconstruction. Individualized dose optimization techniques were used for this CT. COMPARISON: 2 portable upright AP views of the chest March 04, 2017. FINDINGS: The generator of a cardiac pacemaker/AICD again noted in the soft tissues of the left anterior chest wall. Its lead passes from the left subclavian vein to the right ventricle. Normal enhancement of the main pulmonary artery and right and left pulmonary arteries. Normal enhancement of the bilateral peripheral pulmonary arteries. There is no demonstrated pulmonary embolism. The diameter of the aortic root is 4.4 x 4.75 cm (series 601 image 119, series 6 and image 154). The mid descending aorta is 3.75 x 3.8 cm (series 6 on image 110, series 602 image 149). There is mild atherosclerotic calcification of the aortic arch with tortuosity, which measures 2.8 x 2.7 cm. The mid descending thoracic aorta is 2.7 x 2.75 cm, and shows very mild atherosclerotic calcification. There is no demonstrated aortic dissection. Normal heart and pericardium. Coarse calcifications are noted in a subcarinal lymph node and right hilar node. Normal left hilum. Normal visualized trachea and bronchi. The lungs are well expanded. Emphysematous changes predominate in the upper lung pope. Mild irregular density consistent with chronic scarring seen in the anterolateral periphery of the right lung base, with some adjacent distortion of the pleural fissure. There are subtle groundglass densities of uncertain etiology and significance in the left upper lobe and left lower lobe at the mid chest. Punctate calcified granulomata seen in the anterior periphery of the right upper lobe (series 2 image 146 and (and in the posterior periphery of the superior segment of the left lower lobe (series 6 and image 214). Normal pleura. Normal chest wall structures. There are diffuse degenerative changes of the thoracic spine. Normal visualized upper abdomen. CT/CTA Chest W/WO Contrast IMPRESSION: 1. No demonstrated pulmonary embolism or arterial dissection. 2. Borderline distention of the aortic root, but the caliber of the remaining thoracic aorta is within normal limits. 3. Findings old calcified granulomatous disease, and focus of irregular scarring in the anterolateral periphery of the right lung base. 4. Emphysematous changes also present, predominating in the upper lung pope. 5. Subtle groundglass densities in the left midlung. A low-grade inflammatory process might have this appearance. 6. Left subclavian cardiac pacer/AICD present. Electronically Signed: Ryley Molina MD at 16:04 EDT , Service support , CC: Jori Stevens MD; Anupam Dunham MD Paving Plant Operator: Signed KIDNEY BIOPSY Observed: 04/22/2018 Status: F Source: [place] 10:00 AM [facility] Patient: BENITO HILL : 1945 (72/M) Acct Num: [id number] Phys: Jori Stevens MD Unit Num: [id number] Loc: CT Specimen: [id number] Received: 04/22/18 - 1024 Spec Type: KIDNEY BX TISSUES TISSUES: Kidney, NOS COMMENT The tissue fragments received are very minute and represent a papillary renal lesion. The differential diagnosis includes papillary carcinoma, papillary adenoma, Xp11 translocation carcinoma, papillary oncocytoma and clear cell tubulopapillary carcinoma. This distinction cannot be accurately determined based on minute needle core biopsies. Clinical correlation is required. GROSS DESCRIPTION The specimen is received in transport medium and consists of very minute fragments of adipose tissue and red-merida soft tissue measuring <1.0cms x <0.1cms. The specimen is divided for histology and electron microscopy. The specimen is sent entirely to [facility] for diagnosis. HEADER OPERATION: CT-guided right renal mass biopsy PRE-OP DIAGNOSIS: Right renal mass TISSUE SUBMITTED: 4x 18g cores, renal biopsy MICROSCOPIC DESCRIPTION Sections demonstrate very minute fragments of a papillary renal lesion demonstrating bland nuclei and extensive hemosiderin deposition. The remainder of the tissue submitted is adipose tissue. ELECTRON MICROSCOPY: The tissue submitted for electron microscopy is entirely composed of nondiagnostic fibroadipose tissue. Electron microscopy is not performed. MICROSCOPIC DIAGNOSIS Right renal mass biopsy: Very minute fragments of a papillary renal lesion (see comment). Signed Salomón Sharma 05/08/18 <signature on file> Performed By: #### PKI #### [facility] [address] [place], [address] BIOPSY/INJ OR NEEDLE Observed: 04/22/2018 Status: F Source: [place] PLACEMENT 7:55 AM [facility] Imaging Services [address] [facility] [place] [address] Biopsy/Inj or Needle Placement MR#: [id number] Acct: [id number] Name: BENITO HILL Rep #: [id number] : 1945 72 From: Manuelito Marte MD PCP: Jori Stevens MD Status: REG CLI Study: Biopsy/Inj or Needle Placement Date of Exam: 04/22/18 Exam# [id number] Ordering Dr: Jori Stevens MD PROCEDURE: CT GUIDED PERCUTANEOUS KIDNEY BIOPSY. DATE: April 22, 2018. INDICATION: Male, 72 years old. Right renal mass PHYSICIAN: Manuelito Marte M.D. MEDICATIONS: 1 mg of Versed and 25 mcg of fentanyl intravenously for conscious sedation protocol was followed. Conscious sedation was started at 9:48 AM and terminated at 10:04 AM. Independent monitoring was performed by the department nurse. ACCESS SITE: Lower pole of the right kidney. NEEDLE: 18-gauge core biopsy needle. SPECIMEN: 4 18-gauge cores. EBL: None. COMPLICATIONS: None immediate. RADIATION DOSAGE (If Supplied By Facility): CTDIvol = ( 14.8 ) mGy, DLP = ( 630.46 ) mGycm The risks, benefits, and alternatives to the procedure and sedation were explained to the patient. The specific risk of hemorrhage requiring further treatment or intervention was detailed and accepted. Written informed consent was obtained. The patient was placed on the CT table in the prone position. Multiple axial images were obtained from the lung base through the caudal extent of the kidneys. An appropriate entry site was identified and a karoline made on the skin. The skin overlying the [ ] posterior flank was prepped and draped in sterile fashion. 1% lidocaine was administered subcutaneously for local anesthesia. Initially, a 22 gauge needle was advanced and CT images confirmed good needle position. The 22 gauge needle was then exchanged for an 17 gauge introducer needle which was advanced. Repeat CT images confirmed good needle trajectory and tip position. The introducer needle was then advanced into the periphery of the inferior renal pole, and CT images were again obtained to confirm exact tip location. The inner stylet of the introducer needle was then removed and an 18 gauge coaxial needle was advanced thru the introducer needle and biopsy performed. A total of [4 ] passes were performed and the specimen collected was sent to Pathology for further evaluation. The needle was withdrawn. Hemostasis was achieved with manual compression and a sterile dressing was applied. Repeat CT images of the biopsy area was performed which demonstrated no gross bleeding or hematoma. The patient tolerated the procedure well without immediate complications. The patient was transported to the [floor/recovery area] in stable condition. CT/Biopsy/Inj or Needle Placement IMPRESSION: Successful CT guided percutaneous kidney biopsy. Electronically Signed: Manuelito Marte MD at 10:39 EDT Tel [phone], Service support , CC: Jori Stevens MD Paving Plant Operator: Signed PLATELET COUNT Collected: 04/18/2018 Status: F Source: [place] 6:01 AM [facility] TYPE CODE TESTS RESULT OUT OF RANGE REFERENCE UNITS LAB L100.1900 150-450 K/mm3 Normal PLT 150 Performed By: #### L100.1900 #### [facility] [address] [place], [address] PROTHROMBIN TIME W/INR Collected: 04/18/2018 Status: F Source: [place] 6:00 AM [facility] Order Comment: Order Date: 04/15/18 Order Info: [id number] - PT Order Info: [id number] - PTT TYPE CODE TESTS RESULT OUT OF RANGE REFERENCE UNITS LAB L300.4150 11.7-14.9 SECONDS Normal PROTIME 14.5 LAB L300.4200 Normal INR 1.1 Performed By: #### L300.3900, L300.4310 #### [facility] [facility] [address] [place], [address] PARTIAL THROMBOPLAST Collected: 04/18/2018 Status: F Source: [place] TIME 6:00 AM [facility] Order Comment: Order Date: 04/15/18 Order Info: [id number] - PT Order Info: [id number] - PTT TYPE CODE TESTS RESULT OUT OF RANGE REFERENCE UNITS LAB L300.4310 24.1-36.2 Seconds Normal PTT 33.7 Performed By: #### L300.3900, L300.4310 #### [facility] [address] [place], [address] ECHOCARDIOGRAM COMPLETE Observed: 04/17/2018 Status: F Source: [place] 7:07 PM [facility] Cardiovascular Services [address] [place] [address] Echo Complete 04/17/18 1258 MR#: [id number] Acct: [id number] Name: BENITO HILL Rep #: [id number] : 1945 72 From: Anupam Dunham MD Attending Dr: Anupam Dunham MD Status: REG CLI Ordering Dr: Anupam Dunham MD Date: 04/17/18 Location: [facility] Sex: M C Admitted: Reason For Study: CARDIOMYOPATHY Procedure This was a 2D Doppler, Color Flow transthoracic echocardiogram. The exam was of adequate technical quality. Exam performed in department. Left Ventricle Normal LV size. Mild global left ventricular systolic dysfunction. The estimated ejection fraction is 40 %. Unable to assess diastolic dysfunction. Right Ventricle Normal RV size. ICD or pacer leads identified within the right ventricle. Normal systolic function. Atria Normal left atrium. The right atrium is mildly enlarged. ICD or pacer leads identified within the right atrium. No doppler evidence for ASD. Mitral Valve There is no mitral annular calcification. Mild diffuse mitral valve thickening. Mild mitral valve prolapse. Mild (1+) mitral valve insufficiency. Tricuspid Valve Normal tricuspid valve. Mild tricuspid valve insufficiency. Right ventricular systolic pressure estimated to be 21 mmHg. Aortic Valve Trisinus/trileaflet aortic valve. Mild diffuse aortic valve thickening. Pulmonic Valve The pulmonic valve is not well visualized. Great Vessels Mildly dilated aortic root. Mildly dilated ascending aorta. Pericardium/Pleural No pericardial effusion. MMode/2D Measurements AND Calculations LVIDd: 5.3 cm IVSd: 0.95 cm Ao root diam: 4.1 cm LVIDs: 4.1 cm LVPWd: 0.92 cm LA dimension: 3.3 cm RVDd: 4.0 cm FS: 22.1 % LAV(MOD-bp): 57.7 ml LA A4 area: 17.0 cm2 RA A4 area: 22.7 cm2 LAV(MOD-bp) Indexed: 29.6 ml/m2 LAV(MOD-sp2): 68.9 ml LAV(MOD-sp4): 46.9 ml Doppler Measurements AND Calculations MV E max jay: 41.1 cm/sec Lat Peak E' Jay: 4.5 cm/sec Med Peak E' Jay: 8.6 cm/sec MV A max jay: 35.3 cm/sec E/E' lat: 9.2 E/E' med: 4.8 MV E/A: 1.2 Ao V2 max: 74.4 cm/sec LV V1 max: 63.8 cm/sec PA V2 max: 60.8 cm/sec Ao max P.2 mmHg LV V1 max P.6 mmHg PI end-d jay: 76.6 cm/sec TR max jay: 209.3 cm/sec TR max P.5 mmHg Interpretation Summary Mild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 presents to the office today for for outpatient cardiovascular follow-up. Overall from a cardiac standpoint he is doing well. He is not complaining of any ongoing issues of classic angina pectoris nor has he had any overt issues of CHF or pulmonary edema. There has been no palpitations, near- syncope, or syncope. He had lipid labs performed last month. His lipid labs appear to be under good control. His hepatic transaminases were also within acceptable ranges. A TSH level is unavailable for review. It is been just over one year since his last chest x-ray. It has been less than year since his PFTs. He also had his device interrogated today. His device appears to be functioning appropriately. He did have as he has had in the past brief short episodes of what appeared to be a nonsustained monomorphic ventricular tachycardia. As you know he remains on medication for this in addition to having a device in place. He has had no other evaluation to the best of his knowledge regarding his aortic root since his echocardiogram of February 2017. Intake Vital Signs03/26/18 Height 6 ft 3 in 03/26/18 Weight: 158 lb 03/26/18 Body Mass Index (BMI) 19.7 03/26/18 Blood Pressure 106/56 Intake Visit Reasons: 6 M FU (pacer chk @ 2:30) Allergies No Known Allergies Allergy (Verified 03/26/18 14:53) Medications Acetaminophen [Tylenol Arthritis] 650 mg PO PRN PRN 03/09/14 [History Confirmed 03/26/18] Aspirin [Aspirin, Baby] 81 mg PO DAILY@0800 03/09/14 [History Confirmed 03/26/18] metoprolol tartrate 25 mg tablet 12.5 mg PO BID #90 tab 11/04/17 [Rx Confirmed 03/26/18] simvastatin 20 mg tablet 20 mg PO QHS #90 tab 12/18/17 [Rx Confirmed 03/26/18] escitalopram 10 mg tablet 10 mg PO QDAY 02/17/18 [History Confirmed 03/26/18] amiodarone 200 mg tablet 100 mg PO DAILY #45 tab 03/10/18 [Rx Confirmed 03/26/18] hydrocortisone 2.5 % topical cream 1 applic TOPICAL QHS 03/26/18 [History Confirmed 03/26/18] potassium chloride 40 mEq/15 mL oral liquid 40 meq PO QDAY 03/26/18 [History Confirmed 03/26/18] sertraline 100 mg tablet 100 mg PO QDAY 03/26/18 [History Confirmed 03/26/18] [facility] Medical History SVT (supraventricular tachycardia) (Acute) Presence of cardiac defibrillator (Chronic) Hypokalemia (Acute) Nonrheumatic mitral (valve) prolapse (Chronic) Premature ventricular contraction (Chronic) Cardiomyopathy (Chronic) Ventricular tachycardia (Acute) Hyperlipidemia (Chronic) Hypertension (Chronic) Thoracic aortic aneurysm without rupture (Chronic) Anemia (Acute) Colitis (Chronic) Depression (Chronic) GERD (gastroesophageal reflux disease) (Chronic) Surgical History History of tonsillectomy (Resolved) Family History Father Heart disease Sister Heart disease Social History Smoking Status: Never smoker alcohol intake: never substance use type: does not use ROS Const Const: Positive for fatigue; negative for weakness, weight gain, weight loss, frequent falls or excessive sweating Eyes Eyes: Negative for change in vision, blurry vision or transient loss of vision ENT ENT: Negative for dizziness or balance problems Cardio Chest Pain: No Edema: None Muscle aches with walking: None Resp Respiratory: Positive for SOB with activity (breathing at baseline); negative for SOB at rest Additional Details: Patient rpeorts that he has started an exercise program to help woth anxiety and depression GI GI: Negative vomiting or vomiting blood/hematemesis : Negative for hematuria Musc Musc: Positive for joint pain (HX Arthritis); negative for balance problems, muscle aches/ myalgia or muscle weakness Skin Skin: Negative non-healing lesions or rash Neuro Neuro: Negative for weakness, blurry vision, dizziness, lightheadedness, frequent falls or orthostatic symptoms Guy Hematologic/Lymphatic: Negative for easy bleeding Endo Endo: Positive for fatigue; negative for excessive sweating Psych Psych: Positive for anxiety (patient started on new medication sertraline) and depression (patient started on new medication sertraline) Allergy Allergy/Immunology: Negative for hives, Negative for rash Supplemental Info His last transthoracic echocardiogram was on 03/06/2017. The results are as noted below. Interpretation Summary Mild global left ventricular systolic dysfunction. The estimated ejection fraction is 40 %. The right atrium is mildly enlarged. Mild diffuse mitral valve thickening. Mild mitral valve prolapse. Trivial mitral valve insufficiency. Mild tricuspid valve insufficiency. Mild diffuse aortic valve thickening. Trivial aortic valve insufficiency. Trivial pulmonic valve insufficiency. Mildly dilated aortic root. Right ventricular systolic pressure estimated to be 23 mmHg. lCD or pacer leads identified within the right atrium lCD or pacer leads identified within the right ventricle. His last stress test were performed in the outpatient office setting on 05/18/2004. At that point in time per the report he had findings compatible with diaphragmatic attenuation with no fixed defects to suggest infarct and no reversible defects to suggest ischemia. His previous diagnostic cardiac catheterization was performed on 02/22/2011. Results are as noted below.CONCLUSION 1. Mild to moderate global left ventricular systolic dysfunction. 2. Angiographically normal coronaries. He had a Holter monitor performed on 05/09/2010. The results are as noted below. MINIMUM HEART RATE 47 8PM AT 3:13 AM. AVERAGE HEART RATE 77 8PM. MAXIMUM HEART RATE 122 8PM AT 5:51 PM. NO ACTIVITY RECORDED IN PT. DIARY. RARE PREMATURE ATRIAL COMPLEXES. 14 ATRIAL COUPETS. 9 ATRIAL RUNS. THE LONGEST RUN OF PROBABLE ECTOPIC ATRIAL TACHYCARDIA WAS 3 BEATS, 167 8PM AT 3:23 PM. THE FASTEST RUN OF PROBABLE ECTOPIC ATRIAL TACHYCARDIA WAS 3 BEATS, 155 8PM AT 10:23 AM. OCCASIONAL PREMATURE VENTRICULAR COMPLEXES. 83 VENTRICULAR COUPLETS. RARE VENTRICULAR [id number] AND OCCASIONAL TRIGEMINY, NO RUNS. Assessment AND Plan 1. Cardiomyopathy, unspecified type I42.9 Plan At the present time he appears to be doing well with his underlying history of a non-CAD related cardiomyopathy. He will continue medical management and follow-up. Orders Orders: 2. SVT (supraventricular tachycardia) I47.1 Plan He does have a history of both SVT and VT based on previous objective findings. He appears to be doing well at the moment. He will continue medical management and follow-up. Orders Orders: 3. Ventricular tachycardia I47.2 Plan He does have a history of ventricular tachycardia as noted above. He will continue medical therapy. Based upon being on his medications he will have follow-up thyroid levels and chest x-rays at this time. Orders Orders: 4. Presence of cardiac defibrillator Z95.810 Plan He does have an ICD in place. It appears to be functioning appropriately. Orders Orders: 5. Nonrheumatic mitral (valve) prolapse I34.1 Plan He does have a history of mitral valve prolapse. This has been evaluated in the past by history, exam, and echocardiographic findings. This will be followed as well. 6. Hyperlipidemia E78.5 Plan His lipid labs were recently reviewed. They appear to be under good control. He will continue medical management and follow-up. 7. Essential hypertension I10 Plan His blood pressure appears to be controlled as well. He will continue medical therapy and follow-up. 8. Thoracic aortic aneurysm without rupture I71.2 Plan He will have a follow-up transthoracic echocardiogram to help monitor not only his cardiomyopathy, valvular heart disease, but his aortic root size. Orders Orders: Plan Detail Other Medications New: Discontinued: potassium chloride ER Discontinued Reaso40 mEq (2 x 20 mEq) PO DAILYCM Meena Pavon n: Pt no longer taking Additional Comments Otherwise he will be scheduled for future outpatient office follow-up and ICD interrogation. Thank you for allowing me to participate in the care of your patient. Please don't hesitate to call if any issues arise. This note was generated using a voice recognition system and there may be incorrect words, spelling or punctuation that were not noted when reviewing the office note prior to saving. Follow Up 9 Months Coding Level of Care Code Off vis,est,level 4 Diagnoses Cardiomyopathy, unspecified type I42.9 Cardiomyopathy type: unspecified SVT (supraventricular tachycardia) I47.1 Ventricular tachycardia I47.2 Presence of cardiac defibrillator Z95.810 Nonrheumatic mitral (valve) prolapse I34.1 Hyperlipidemia E78.5 Essential hypertension I10 Hypertension type: essential hypertension Thoracic aortic aneurysm without rupture I71.2 Coding Level of Care Code Off vis,est,level 4 Diagnoses Cardiomyopathy, unspecified type I42.9 Cardiomyopathy type: unspecified SVT (supraventricular tachycardia) I47.1 Ventricular tachycardia I47.2 Presence of cardiac defibrillator Z95.810 Nonrheumatic mitral (valve) prolapse I34.1 Hyperlipidemia E78.5 Essential hypertension I10 Hypertension type: essential hypertension Thoracic aortic aneurysm without rupture I71.2 03/26/18 1533 <Electronically signed by Anupam Dunham MD> Date Anupam Dunham MD Cosigner Signature: Date (if applicable) CC: Jori Stevens MD LIVER PROFILE Collected: 03/17/2018 Status: F Source: DC 7:02 AM [facility] Order Comment: Order Date: 07/12/17 Order Info: 0788-1 - *Hepatic Function Panel Order Info: 64126-7 - *Lipid Profile CC PCP Comments: 12 hours fasting, may have water. TYPE CODE TESTS RESULT OUT OF RANGE REFERENCE UNITS LAB L501.1500 6.4-8.2 g/dL Normal T PROT 7.5 LAB L501.1800 3.2-5.0 g/dL Normal ALB 3.7 LAB L501.1950 2.2-4.2 g/dL Normal GLOB 3.8 LAB L501.4100 15-37 U/L Normal AST 17 LAB L501.4305 45-117 U/L Normal ALK P 112 LAB L501.4405 16-61 U/L Normal ALT 19 LAB L501.4600 0.20-1.00 mg/dL Normal T BILI 0.30 LAB L501.4700 0.00-0.30 mg/dL Normal D BILI 0.11 Performed By: #### L500.3400 #### [facility] [address] [place], [address] LIPID PROFILE Collected: 03/17/2018 Status: F Source: [place] 7:02 AM [facility] Order Comment: Order Date: 07/12/17 Order Info: 0788-1 - *Hepatic Function Panel Order Info: 15773-6 - *Lipid Profile CC PCP Comments: 12 hours fasting, may have water. TYPE CODE TESTS RESULT OUT OF RANGE REFERENCE UNITS LAB L501.4900 200 mg/dL Normal CHOL 148 Result Comment: <200 mg/dL Desirable 200-240 mg/dL Borderline >240 mg/dL High Risk LAB L501.5000 mg/dL Normal TRIG 117 Result Comment: The drugs N-Acetylcysteine and Metamizole may falsely depress this assay. Serum Triglycerides Reference Interval Normal <150 mg/dL Borderline high 150 - 199 mg/dL High 200 - 499 mg/dL Very High > or = 500 mg/dL LAB L501.6400 mg/dL Normal HDL 54 Result Comment: The drugs N-Acetylcysteine and Metamizole may falsely depress this assay. Reference Range HDL <40 mg/dL Low HDL Cholesterol HDL >or= 60 mg/dL High HDL Cholesterol LAB L501.6500 0-130 mg/dL Normal LDL 71 LAB L501.6600 5-40 mg/dL Normal VLDL 23 Performed By: #### L500.4100 #### [facility] [address] [place], [place], [address] BASIC METABOLIC Collected: 03/17/2018 Status: F Source: [place] FELIBERTO (BMP) 7:01 AM [facility] Order Comment: Order Date: 01/21/18 Order Info: 0667-1 - BMP NO VRO CHG 2 DRS ORDERS CHARGE TO DR DUNHAM ORDER. TYPE CODE TESTS RESULT OUT OF RANGE REFERENCE UNITS LAB L501.0100 74-106 mg/dL Normal GLU 97 Result Comment: Please note revised GLUCOSE reference range effective 2017. LAB L501.1000 7-18 mg/dL Normal BUN 16 LAB L501.1100 0.70-1.30 mg/dL High CREAT,SERUM 1.41 Result Comment: The validity of the calculated GFR AND GFRAA in patients over 70 years has not been determined. Clinical correlation is essential. LAB L501.1110 >60 mL/min Low EST GFR 52 Result Comment: Non- GFR Calc LAB L501.1115 >60 mL/min Normal EST GFR - AA 63 Result Comment: GFR Calc LAB L501.1300 10-20 RATIO Normal BUN/CRE 11.3 LAB L501.2200 8.5-10.1 mg/dL CA Normal 8.7 LAB L501.5300 136-145 mmol/L NA Normal 140 LAB L501.5600 3.5-5.1 mmol/L K Normal 3.9 LAB L501.5900 98-107 mmol/L High CL 109 LAB L501.6100 21.0-32.0 mmol/L Normal CO2 29.0 LAB L501.6200 5-15 Low GAP 2 Performed By: #### L500.2500, L501.9985 #### [facility] [address] [facility] [facility]. [place], [place], [address] HEMOGLOBIN A1C Collected: 03/17/2018 Status: F Source: [place] 7:01 AM [facility] Order Comment: Order Date: 01/21/18 Order Info: 4548-4 - A1C TYPE CODE TESTS RESULT OUT OF RANGE REFERENCE UNITS LAB L501.9985 4.2-6.3 % Normal HGB A1C 5.8 Performed By: #### L500.2500, L501.9985 #### [facility] [address] [place], [address] ALLERGIES ALLERGIES DATE TYPE / CODE NAME / CODE REACTION SEVERITY SOURCE 03/29/2018 Drug No Known Unknown [facility] Allergy/4160 Allergies/F00 [facility] [address](SNOMED 8161523(RXNOR Repository CT) M) ENCOUNTERS ENCOUNTERS ADMIT/DISCHARGE ACCOUNT ADMITTING ENCOUNTER LOCATION SOURCE NUMBER CLASS 10/23/2018 [id number] Ambulatory [facility]c [facility] 3 [facility] ing:LAB Repository 10/08/2018 [id number] Amb[facility] Dc [place] [facility]CT Repository 07/16/2018 [id number] Ambulatory Dc [place] 6 [facility] ing:LAB.FUTUR Repository E 07/03/2018/ [id number] Sander Pittman Inpatient Dc Dc 8 9 Octavio [facility] Hospital ing:GB5Hsyp: Repository [id number]: 1 06/26/2018/ [id number] Ambulatory BMSBuilding:W Dc 8 5 [facility] Repository 05/07/2018 [id number] Ambulatory [place] 7 [facility] ing:CT Repository 04/22/2018 [id number] Ambulatory Dc [place] 0 [facility] ing:CT Repository 04/18/2018 [id number] Ambulatory Dc [place] 0 [facility] ing:LAB Repository 04/17/2018 [id number] Ambulatory Dc [place] 3 [facility] ing:[facility]S Repository 04/17/2018 [id number] Ambulatory BMSBuilding:W Dc 0 [facility] Repository 04/11/2018 [id number] Ambulatory Dc [place] 8 [facility] ing:US Repository 04/07/2018 [id number] Ambulatory [place] 3 [facility] ing:CT Repository 03/29/2018/ [id number] Emergency Dc [place] 8 4 [facility] ing:ED Repository 03/26/2018/ [id number] Ambulatory BMSBuilding:B Dc 8 4 [facility] Repository 03/26/2018/ [id number] Ambulatory BMSBuilding:B [place] 8 6 [facility] Repository 03/17/2018 [id number] Ambulatory [place] Dc 6 [facility] Hospital ing:LAB Repository 02/17/2018 [id number] Ambulatory BMSBuilding:B Dc 6 [facility] Repository PAYERS PAYERS ENCOUNTER GUARANTOR PAYER SUBSCRIBER SOURCE 10/23/2018 BENITO Pat Primary BENITO [place] [id number] [place] Insurance:MEDICARE BENCHOTDOB: [id number] [address]Kvr: Number: Repository [id number] (HP) Date:2018-10-23 10/23/2018 Secondary BENITO Pat [place] Insurance:FORETHOUGHT BENCHOTDOB: Community Policy Number: [id number] Hospital [id number] Repository Date:4315-62-66XM [address] [place] [address]EX: 10/23/2018 Tertiary NOT GIVENUNK [place] Insurance:SELF PAY [facility] Number: Effective Repository Date:2018-10-23 10/08/2018 BENITO Pat Primary BENITO Irwin [id number] [place] Insurance:MEDICARE BENCHOTDOB: [facility] [id number] Vista [facility] Hospital [address]Jwe: Number: Repository [id number] (HP) Date:2018-10-03 10/08/2018 Secondary BENITO Pat [place] Insurance:FORETHOUGHT BENCHOTDOB: [facility] Policy Number: [id number] Hospital [id number] Repository Date:5112-50-55UL [address] [place] [address]GE: 10/08/2018 Tertiary NOT GIVENUNK Dc Insurance:SELF PAY [facility] Number: Effective Repository Date:2018-10-03 07/16/2018 BENITO Pat Primary BENITO Quirozoster [id number] [place] Insurance:MEDICARE BENCHOTDOB: [facility] [id number] Hospital [address]Fqx: Number: Repository [id number] (HP) Date:2018-07-15 07/16/2018 Secondary BENITO Pat [place] Insurance:FORETHOUGHT BENCHOTDOB: Community Policy Number: [id number] Hospital [id number] Repository Date:4900-08-31NQ [address] [place] [address] 10[address]LP: 07/16/2018 Tertiary NOT GIVENUNK [place] Insurance:SELF PAY [facility] Number: Effective Repository Date:2018-07-15 07/03/2018 BENITO Pat Primary BENITO Irwin [id number] [place] Insurance:MEDICARE BENCHOTDOB: [facility] [id number] [place] [address]Nxx: Number: Repository [id number] (HP) Date:2018-06-10 07/03/2018 Secondary BENITO Pat D[place] Insurance:FORETHOUGHT BENCHOTDOB: Community Policy Number: [id number] Hospital [id number] Repository Date:[id number] [address]OK: 07/03/2018 Tertiary NOT GIVENUNK [place] Insurance:SELF PAY [facility] Number: Effective Repository Date:2018-06-10 06/26/2018 BENITO Pat Primary BENITO Irwin [id number] [place] Insurance:MEDICARE BENCHOTDOB: [facility] [id number] Hospital [place] [address]Vvj: Number: Repository [id number] (HP) Date:2018-06-10 06/26/2018 Secondary BENITO Pat Dc Insurance:FORETHOUGHT BENCHOTDOB: Community Policy Number: [id number] Hospital [id number] Repository Date:8441-41-92[address], [place] [address]DQ: 06/26/2018 Tertiary NOT GIVENUNK Dc Insurance:SELF PAY [facility] Number: Effective Repository Date:2018-06-26 05/07/2018 BENITO Pat Primary BENITO Irwin [id number] [place] Insurance:MEDICARE BENCHOTDOB: [facility] [id number] Hospital [place] [address]Osd: Number: Repository [id number] (HP) Date:2018-04-24 05/07/2018 Secondary BENITO M Dc Insurance:FORETHOUGHT BENCHOTDOB: Community Policy Number: [id number] Hospital [id number] Repository Date:6394-49-08FX [address] [place] [address] 00134OB: 05/07/2018 Tertiary NOT GIVENUNK [place] Insurance:SELF PAY [facility] Number: Effective Repository Date:2018-04-24 04/22/2018 BENITO Pat Primary BENITO Irwin [id number] [place] Insurance:MEDICARE BENCHOTDOB: [facility] [id number] Hospital [place] [address]Clp: Number: Repository [id number] () Date:2018-04-15 04/22/2018 Secondary BENITO Irwin Insurance:FORETHOUGHT BENCHOTDOB: Community Policy Number: [id number] Hospital [id number] Repository Date:1007-52-48SL [address] [place] [address]IP: 04/22/2018 Tertiary NOT GIVENUNK [place] Insurance:SELF PAY [facility] Number: Effective Repository Date:2018-04-15 04/18/2018 BENITO Pat Primary BENITO Irwin [id number] [place] Insurance:MEDICARE BENCHOTDOB: [facility] [id number] [facility] [place] [address]Uwi: Number: Repository [id number] () Date:2018-04-18 04/18/2018 Secondary BENITO Irwin Insurance:FORETHOUGHT BENCHOTDOB: Community Policy Number: [id number] Hospital [id number] Repository Date:8266-94-08[address] [address], [place] [address]EJ: 04/18/2018 Tertiary NOT GIVENUNK Dc Insurance:SELF PAY [facility] Number: Effective Repository Date:2018-04-18 04/17/2018 BENITO Pat Primary BENITO Irwin [id number] [place] Insurance:MEDICARE BENCHOTDOB: [facility] [id number] [id number]: Number: Repository [id number] (HP) Date:2018-03-26 04/17/2018 Secondary BENITO Irwin Insurance:FORETHOUGHT BENCHOTDOB: [facility] Policy Number: [id number] Hospital [id number] Repository Date:3323-01-73RC [address] [address]FMP[place], [place] [address]FA: 04/17/2018 Tertiary NOT GIVENUNK [place] Insurance:SELF PAY [facility] Number: Effective Repository Date:2018-03-26 04/17/2018 BENITO Pat Primary BENITO Irwin [id number] [place] Insurance:MEDICARE BENCHOTDOB: [id number] [address]Zhy: Number: Repository [id number] (HP) Date:2018-03-26 04/17/2018 Secondary BENITO Quirozoster Insurance:FORETHOUGHT BENCHOTDOB: [facility] Policy Number: [id number] Hospital [id number] Repository Date:0480-41-92NI [address] [place] [address]CU: 04/17/2018 Tertiary NOT GIVENUNK Dc Insurance:SELF PAY [facility] Number: Effective Repository Date:2018-04-17 04/11/2018 BENITO Pat Primary BENITO Quirozoster [id number] [place] Insurance:MEDICARE BENCHOTDOB: [facility] [id number] Vista [facility] Hospital [address]Brr: Number: Repository [id number] (HP) Date:2018-04-08 04/11/2018 Secondary BENITO Pat [place] Insurance:FORETHOUGHT BENCHOTDOB: [facility] Policy Number: [id number] Hospital [id number] Repository Date:5137-60-23SL [address] [address]GWJCZEWRS, [place] [address]FN: 04/11/2018 Tertiary NOT GIVENUNK [place] Insurance:SELF PAY [facility] Number: Effective Repository Date:2018-04-08 04/07/2018 BENITO Pat Primary BENITO Quirozoster [id number] [place] Insurance:MEDICARE BENCHOTDOB: [facility] [id number] Hospital [address]Lof: Number: Repository [id number] (HP) Date:2018-03-31 04/07/2018 Secondary BENITO Pat Dc Insurance:FORETHOUGHT BENCHOTDOB: Community Policy Number: [id number] Hospital [id number] Repository Date:0610-66-23LB [address] [place] [address] 45[address]JY: 04/07/2018 Tertiary NOT GIVENUNK [place] Insurance:SELF PAY [facility] Number: Effective Repository Date:2018-03-31 03/29/2018 BENITO Pat Primary BENITO Irwin [id number] [place] Insurance:MEDICARE BENCHOTDOB: [facility] [id number] Vista Regional Hospital [address]Mvq: Number: Repository [id number] (HP) Date:2018-03-29 03/29/2018 Secondary BENITO Pat [place] Insurance:FORETHOUGHT BENCHOTDOB: [facility] Policy Number: [id number] Hospital [id number] Repository Date:3572-41-53HS [address] [place] [address]WZ: 03/29/2018 Tertiary NOT GIVENUNK Dc Insurance:SELF PAY [facility] Number: Effective Repository Date:2018-03-29 03/26/2018 BENITO Pat Primary BENITO Pat Dc [id number] [place] Insurance:MEDICARE BENCHOTDOB: [facility] [id number]: Repository [id number]: 330 [id number] [phone] (HP) Date:2018-03-10 03/26/2018 Secondary BENITO Pat Dc Insurance:FORETHOUGHT BENCHOTDOB: Community Policy Number: [id number] Hospital [id number] Repository Date:0074-61-82NM [address] [place] [address] 95[address]CH: 03/26/2018 Tertiary NOT GIVENUNK [place] Insurance:SELF PAY [facility] Number: Effective Repository Date:2018-03-26 03/26/2018 BENITO Pat Primary BENITO Pat Dc [id number] [place] Insurance:MEDICARE BENCHOTDOB: [facility] [id number] Number: Repository [id number]: 330 [id number] [phone] (HP) Date:2017-11-07 03/26/2018 Secondary BENITO Pat Dc Insurance:FORETHOUGHT BENCHOTDOB: Community Policy Number: [id number] Hospital [id number] Repository Date:8706-72-07FC [id number], [place] [address]HJ: 03/26/2018 Tertiary NOT GIVENUNK [place] Insurance:SELF PAY [facility] Number: Effective Repository Date:2018-03-10 03/17/2018 BENITO Pat Primary BENITO Quirozoster [id number] [place] Insurance:MEDICARE BENCHOTDOB: [facility] [id number] Hospital [place] [address]Srf: Number: Repository [id number] () Date:2018-03-17 03/17/2018 Secondary BENITO Pat Dc Insurance:FORETHOUGHT BENCHOTDOB: Community Policy Number: [id number] Hospital [id number] Repository Date:1201-55-50FT [address] [address]KN, [place] [address]LG: 03/17/2018 Tertiary NOT GIVENUNK [place] Insurance:SELF PAY [facility] Number: Effective Repository Date:2018-03-17 02/17/2018 Benito Pat Primary NOT GIVENUNK [place] [id number] [place] Insurance:SELF PAY [facility] [place] [address]Epe: Number: Effective Repository Date:2018-02-17 ()
== END ==
PROVIDERS: Family Provider Family Medicine; PCP Family Medicine; Referring Provider Urology; Visit Provider Urology
DX: C64.9 Malignant neoplasm of unspecified kidney, except renal pelvis (principal); Z85.828 Personal history of other malignant neoplasm of skin
CPT/HCPCS: 36415; 71046; 80048; 85027

== ENCOUNTER → 2019-01-06 10:11 | Outpatient (CLI) | payer MEDICARE, OTHER, SELFPAY ==
[2018-07-02 12:34] VITALS: BMI 19.9
[2019-01-06 11:34] LABS: AST(SGOT) 15 U/L (15-37); Alanine Aminotransfer ALT/SGPT 17 U/L (16-61); Albumin, Serum 3.6 g/dL (3.2-5.0); Alkaline Phosphatase 87 U/L (45-117); Bilirubin, Direct 0.18 mg/dL (0.00-0.30); Cholesterol 141 mg/dL (200); Globulin 4.6 g/dL (2.2-4.2); High Density Lipoprotein 63 mg/dL; Protein, Total 8.2 g/dL (6.4-8.2); Thyroid Stim Hormone (TSH) 1.26 uIU/mL (0.358-3.74); Triglycerides 64 mg/dL; Very Low Density Lipoprotein 13 mg/dL (5-40)
== END ==
PROVIDERS: Family Provider Family Medicine; PCP Family Medicine; Referring Provider Internal Medicine Cardiovascular Disease; Visit Provider Internal Medicine Cardiovascular Disease
DX: I47.1 Supraventricular tachycardia (principal); I47.2 Ventricular tachycardia; E78.5 Hyperlipidemia, unspecified; Z79.899 Other long term (current) drug therapy
CPT/HCPCS: 36415; 80061; 80076; 84443

== ENCOUNTER → 2019-03-25 08:49 | Outpatient (CLI) | payer MEDICARE, OTHER, SELFPAY ==
[2019-01-12 08:42] VITALS: BMI 20.1
--- NOTE | 2019-03-25 09:00 | RAD_ITS ---
STUDY: X-RAY CHEST REASON FOR EXAM: Male, 73 years old. Renal CA, histoplasmosis TECHNIQUE: Frontal and lateral views COMPARISON: October 23, 2018 FINDINGS: Stable left-sided pacemaker. The lungs are hyperaerated. There is mild bilateral apical pleural thickening and calcifications. Normal size heart. Normal mediastinum and araceli. Normal visualized pulmonary arteries. Normal visualized aortic arch and descending thoracic aorta. Degenerative changes of the visualized thoracic spine. Normal visualized ribs, clavicles, and shoulders. There is no demonstrated abnormality of the visualized soft tissue structures of the upper abdomen. RAD/Chest PA and Lateral IMPRESSION: Hyperaeration. Electronically Signed: Manuel Smith DO at 23:46 EDT Tel [phone], Service support ,
[2019-03-25 09:56] LABS: Hemoglobin 14.3 g/dl (13.0-16.5); Mean Corp Hgb Conc 32.5 g/gl (32-36); Mean Corpuscular Hgb 29.7 pg (27.0-32.0); Mean Corpuscular Volume 91.5 fL (80-94); Platelet Count 114 K/mm3 (150-450); RBC Distribution Width CV 13.6 % (11.6-14.6); RBC Distribution Width SD 45.1 fl (35.1-43.9); Red Blood Count 4.81 M/mm3 (4.6-6.2); Scan Indicated on CBC? Y/N NO; White Blood Count 4.7 K/mm3 (4.4-11.0)
[2019-03-25 10:19] LABS: Anion Gap 1 (5-15); BUN 12 mg/dL (7-18); BUN/Creat Ratio 9.8 RATIO (10-20); Chloride 106 mmol/L (98-107); Creatinine, Serum 1.22 mg/dL (0.70-1.30); EST Glomerular Filtration Rate 62 mL/min (>60); Est Glom Filt Rate - Afr Amer 75 mL/min (>60); Glucose 88 mg/dL (74-106); Sodium Level 138 mmol/L (136-145)
== END ==
PROVIDERS: Family Provider Family Medicine; PCP Family Medicine; Referring Provider Urology; Visit Provider Urology
DX: C64.9 Malignant neoplasm of unspecified kidney, except renal pelvis (principal)
CPT/HCPCS: 36415; 71046; 80048; 85027

== ENCOUNTER → 2019-04-08 06:23 | Outpatient (CLI) | payer MEDICARE, OTHER, SELFPAY ==
--- NOTE | 2019-04-08 06:27 | CT_ITS ---
HISTORY: right kidney cancer f/u. partial nephrectomy EXAMINATION: CT Abdomen And Pelvis W/ Contrast TECHNIQUE: Helically acquired images were obtained of the abdomen and pelvis following IV contrast. A radiation dose optimization technique was used for this scan. IV Contrast dosage and agent: 100 Isovue 300 Oral contrast: None. COMPARISON: CT abdomen and pelvis 04/07/2018 FINDINGS: LOWER CHEST: No pleural effusion or pericardial effusion. Both kidneys are normal in position. Interval partial nephrectomy on the right with successful excision of the previously seen exophytic cortical mass. Residual small cortical defect and small scar at the lateral margin of the right renal midpole. No pathologic enhancement. No residual or recurrent tumor identified and no new or suspicious lesions. Bilateral renal opacification without evidence of hydronephrosis. No renal calculi identified. The adrenal glands are not enlarged. Normal liver, spleen, pancreas, gallbladder, and biliary system. Abdominal aorta is atherosclerotic atheroma in caliber. Aortoiliac atherosclerotic calcifications. No ascites or retroperitoneal lymph no enlargement. GI tract: Constipation pattern. No obstruction. Distal diverticulosis coli. No diverticulitis or pericolonic inflammatory changes seen. Pelvis: The urinary bladder appears normal. No free fluid or lymph node enlargement. Bones: No acute osseous abnormality. Lumbar spine multilevel degenerative spondylosis. CT/Abdomen/Pelvis WITH Contrast IMPRESSION: 1. Right renal partial nephrectomy with successful excision of the previously seen exophytic mass. No evidence of residual recurrent tumor and no metastatic abdominal disease identified. No lymphadenopathy. 2. Diverticulosis coli. No acute abdominal disease identified. Individualized dose optimization techniques were used for this CT. at 0740 Reported and signed by: Martin Riley MD Electronically Signed: Martin Riley, at 7:39 EDT Tel , Service support ,
== END ==
PROVIDERS: Family Provider Family Medicine; PCP Family Medicine; Referring Provider Urology; Visit Provider Urology
DX: C64.9 Malignant neoplasm of unspecified kidney, except renal pelvis (principal)
CPT/HCPCS: 74177; Q9967

== ENCOUNTER → 2019-06-25 07:33 | Outpatient (CLI) | payer MEDICARE, OTHER, SELFPAY ==
[2019-01-12 08:42] VITALS: BMI 20.1
[2019-06-25 08:58] LABS: AST(SGOT) 18 U/L (15-37); Alanine Aminotransfer ALT/SGPT 17 U/L (16-61); Albumin, Serum 3.8 g/dL (3.2-5.0); Alkaline Phosphatase 76 U/L (45-117); Bilirubin, Direct 0.21 mg/dL (0.00-0.30); Cholesterol 127 mg/dL (200); High Density Lipoprotein 64 mg/dL; Protein, Total 7.8 g/dL (6.4-8.2); Triglycerides 67 mg/dL; Very Low Density Lipoprotein 13 mg/dL (5-40)
== END ==
PROVIDERS: Family Provider Family Medicine; PCP Family Medicine; Referring Provider Nurse Practitioner Family; Visit Provider Nurse Practitioner Family
DX: E78.5 Hyperlipidemia, unspecified (principal); I42.9 Cardiomyopathy, unspecified
CPT/HCPCS: 36415; 80061; 80076

== ENCOUNTER → 2019-08-07 12:17 | Outpatient (CLI) | payer MEDICARE, OTHER, SELFPAY ==
[2019-08-07 12:17] VITALS: BMI 19.6
[2019-08-07 14:31] LABS: PSA,Total - Annual Screen 0.62 ng/mL (0.00-4.00)
== END ==
PROVIDERS: Family Provider Family Medicine; PCP Family Medicine; Referring Provider Family Medicine; Visit Provider Family Medicine
DX: Z12.5 Encounter for screening for malignant neoplasm of prostate (principal)
CPT/HCPCS: 36415; 84153; G0103

== ENCOUNTER 2019-09-25 07:20 | Observation (INO) | payer MEDICARE, OTHER, SELFPAY ==
[2019-08-07 12:17] VITALS: BMI 19.6
[2019-09-25] VITALS (16 sets, daily range): BP systolic 86–116; BP diastolic 50–80; PULSE 68–113; RESP 16–18; TEMP 36.4–36.8; O2SAT 98–100; BMI 18.6
--- NOTE | 2019-09-25 07:28 | EKG12_ITS ---
Test Reason : Blood Pressure : / mmHG Vent. Rate : 107 BPM Atrial Rate : 107 BPM P-R Int : 160 ms QRS Dur : 106 ms QT Int : 368 ms P-R-T Axes : 000 059 086 degrees QTc Int : 491 ms Atrial Flutter Septal infarct (cited on or before 14-FEB-2011), age undetermined, cannot be excluded Abnormal ECG Confirmed by CHARLA GRAVES, STARR ([id number]), supervising editor trailer LOUIS WILLIAMSON ([id number]) on 09/28/2019 9:44:12 AM Referred By: Orion Diana Confirmed By:STARR DUNHAM MD
--- NOTE | 2019-09-25 07:28 | RAD_ITS ---
STUDY: X-RAY CHEST REASON FOR EXAM: Male, 74 years old. Chest pain. TECHNIQUE: Single AP portable view of the chest. COMPARISON: Comparison is made with prior study dated March 25, 2019. FINDINGS: EKG electrodes are seen. There is hyperinflation of the lungs consistent with chronic obstructive lung disease (COPD). There is no demonstrated pleural abnormality. Normal size heart. Stable unipolar left pacemaker. Normal mediastinum and araceli. Normal visualized pulmonary arteries. Normal visualized aortic arch and descending thoracic aorta. There are diffuse degenerative changes of the visualized thoracic spine. Normal visualized ribs, clavicles, and shoulders. There is no demonstrated abnormality of the visualized soft tissue structures of the upper abdomen. RAD/Chest 1 View (Portable) IMPRESSION: Hyperinflation. Electronically Signed: Manuelito Marte, at 8:34 EDT , Service support ,
--- NOTE | 2019-09-25 07:53 | ED.VISSUMM ---
- ER Visit Summary Date of Service: 09/25/19 Chief Complaint: Chest discomfort History of Present Illness: The patient is a 74 M history of pacemaker, defibrillator and cardiomyopathy. States he had a heart cath but is never needed any stents. He is never had bypass surgery. Patient states that he has had intermittent chest pain since yesterday. Associated diaphoresis and nausea. Says he feels lightheaded when he stands. Complains of dizziness but not room spinning. No trouble moving his arms or legs. Currently he is lying in bed appears comfortable states his pain is 6-7 out of 10. He is on daily aspirin but not blood thinners otherwise. Physical Examination: Well-appearing older male. Coming by his . Vital signs are stable and afebrile. Pulse ox 98% no hypoxia. H EENT exam unremarkable. Moist his membranes. Neck nontender. No lymphadenopathy. Lungs clear to auscultation bilaterally. Heart regular rhythm and rate about 105 no murmur. Abdomen is soft and nontender normal bowel sounds no peritoneal signs. Extremities moves all 4. Calves are nontender without edema or cords. Neurologically is awake and alert with no focal motor or sensory deficits. He is moving all 4 extremities. Calves are nontender without edema. 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 Back is nontender. He does have mild reproducible chest wall tenderness. Test Results: EKG shows a sinus tachycardia rate of 107 with no acute signs of acute GA or ischemia. No prior septal infarct. This is unchanged from prior EKG. A repeat EKG was done at 8:39 AM is unchanged from the first. Again a sinus tachycardia rate of 111 with age-indeterminate septal infarct. There is no acute signs of GA. There is no ST depression. CBC normal. Chemistry normal. Troponin normal. Chest x-ray chronic changes with hyperinflation but no acute abnormality read both by myself and the radiologist. He is complaining of dizziness there is nothing on neurologic exam we did orthostatic blood pressures that were positive. We treated with a liter of normal saline. Emergency Department Course and Treatment: Patient will undergo cardiac work-up. He will be given aspirin. We will try a sublingual nitro and see that there is anything for his pain. Basically his exam is unremarkable except for some mild reproducible chest wall pain. Treatment Plan: Patient complaining of chest discomfort. Will be brought in for further evaluation. Disposition: Admission Impression: Acute chest pain of uncertain etiology History of pacemaker defibrillator and cardiomyopathy Positive orthostatic hypotension This note was generated with Mettl dictation software. It may contain incorrect words, spelling, and punctuation that were not noted in review of the chart prior to signing ED Disposition - Plan for ED Patient: Referrals: Jori Stevens MD [STAFF PHYSICIAN] -
[2019-09-25 08:07] LABS: Absolute Lymphocyte Count 1.33 X10^3/uL (0.83-4.51); Basophil# 0.07 X10^3/uL; Basophil% 1.4 % (0-1); Eosinophil# 0.19 X10^3/uL; Eosinophils% 3.7 % (0-5); Hemoglobin 15.1 g/dL (13.0-16.5); Lymphocyte # 1.33 X10^3/ul (4.0); Lymphocyte % 25.9 % (19-41); Mean Corp Hgb Conc 32.8 g/dL (32-36); Mean Corpuscular Hgb 30.6 pg (27.0-32.0); Mean Corpuscular Volume 93.3 fL (80-94); Mean Platelet Vol. 10.7 fl (6.2-12.0); Monocyte# 0.51 X10^3/uL; Monocyte% 9.9 % (0-10); NRBC Flagged by Analyzer 0 % (0-5); Neutrophil # 3.01 X10^3/uL (2.7-7.7); Neutrophil % 58.7 % (47-70); Platelet Count 100 K/mm3 (150-450); RBC Distribution Width CV 13.3 % (11.6-14.6); RBC Distribution Width SD 45.4 fl (35.1-43.9); Red Blood Count 4.93 M/mm3 (4.6-6.2); White Blood Count 5.1 K/mm3 (4.4-11.0)
[2019-09-25 08:19] LABS: Anion Gap 8 (5-15); BUN 14 mg/dL (7-18); BUN/Creat Ratio 10.9 RATIO (10-20); Calcium,Total 8.7 mg/dL (8.5-10.1); Chloride 107 mmol/L (98-107); Creatinine, Serum 1.29 mg/dL (0.70-1.30); EST Glomerular Filtration Rate 58 mL/min (>60); Est Glom Filt Rate - Afr Amer 70 mL/min (>60); Estimated Creatinine Clearance 51.59 ml/min; Glucose 110 mg/dL (74-106); Potassium 3.8 mmol/L (3.5-5.1); Sodium Level 141 mmol/L (136-145)
--- NOTE | 2019-09-25 08:34 | EKG12_ITS ---
Test Reason : Blood Pressure : / mmHG Vent. Rate : 111 BPM Atrial Rate : 111 BPM P-R Int : 192 ms QRS Dur : 100 ms QT Int : 354 ms P-R-T Axes : 000 059 087 degrees QTc Int : 481 ms Atrial Flutter Septal infarct , age undetermined , cannot be excluded Abnormal ECG Confirmed by CHARLA GRAVES, STARR ([id number]), sound editor LOUIS WILLIAMSON ([id number]) on 09/28/2019 9:44:38 AM Referred By: Orion Diana Confirmed By:STARR DUNHAM MD
[2019-09-25] MEDS: 0.9% Normal Saline 1,000 ML 999 ML IV (08:50)
--- NOTE | 2019-09-25 09:36 | ED.RN ---
nuclear medicine requesting pt to remain in ER until test done
--- NOTE | 2019-09-25 10:45 | HP.PCM_ITS ---
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 Patient denies any shortness of breath, he states he feels lightheaded, the chest discomfort is not precipitated by anything in particular in fact the patient states that when he becomes active the chest pain actually goes away because he forgets about it. Patient has a history of a nonischemic cardiomyopathy, he follows up with Dr. Reece in his office. Work-up in the emergency room today included a chest x-ray which did not show any acute disease, patient's lab work revealed normal troponins, chemistry profile was unremarkable, CBC was unremarkable. EKG showed a normal sinus rhythm without evidence of ischemic changes. I talked with cardiology this morning by phone, Dr. Reece states that we can try to get a stress test on the patient today if his enzymes remain normal. Patient will be placed in observation status on PCU, a second set of enzymes will be obtained approximately 1130 this morning and if these are negative patient will have a resting pharmacological nuclear stress test performed. Last time patient had any work-up according to the patient (stress test, cardiac catheterization) was in 2013. This did not indicate he had occlusive coronary disease. Past Medical History Past Medical History (Chronic Problems): Chronic Problems (Last Reviewed 03/26/18 @ 14:59 by Meena Pavon) SVT (supraventricular tachycardia) (Chronic) Presence of cardiac defibrillator (Chronic) Nonrheumatic mitral (valve) prolapse (Chronic) Premature ventricular contraction (Chronic) Cardiomyopathy (Chronic) Ventricular tachycardia (Chronic) Hyperlipidemia (Chronic) Hypertension (Chronic) Thoracic aortic aneurysm without rupture (Chronic) Medical History: Medical History (Last Reviewed 03/26/18 @ 14:59 by Meena Pavon) SVT (supraventricular tachycardia) (Chronic) I47.1 Hypokalemia (Acute) E87.6 Nonrheumatic mitral (valve) prolapse (Chronic) I34.1 Premature ventricular contraction (Chronic) I49.3 Cardiomyopathy (Chronic) I42.9 Ventricular tachycardia (Chronic) I47.2 Hyperlipidemia (Chronic) E78.5 Hypertension (Chronic) I10 Thoracic aortic aneurysm without rupture (Chronic) I71.2 Anemia D64.9 Colitis K52.9 Depression F32.9 GERD (gastroesophageal reflux disease) K21.9 Allergies No Known Allergies Allergy (Verified 09/25/19 07:28) Home Medications: Ambulatory Orders Medication Instructions Recorded Aspirin [Aspirin, Baby] 81 mg PO DAILY@0800 03/09/14 simvastatin 20 mg tablet 20 mg PO QHS #90 tab 11/12/18 potassium chloride 40 mEq/15 mL 40 meq PO QDAY #1419 ml 01/12/19 oral liquid metoprolol tartrate 25 mg tablet 12.5 mg PO BID #90 tab 08/03/19 Amiodarone HCl 200 mg PO DAILY 09/25/19 Surgical History: Surgical History (Last Updated 01/12/19 @ 09:17 by Dinora Montoya) Presence of cardiac defibrillator (Chronic) Z95.810 History of partial nephrectomy Onset Date: 07/02/18 Z90.5 right History of tonsillectomy Z90.89 Surgical History: - - ICD Psychiatric History: No pertinent psych hx Lives: Spouse/ Significant Other Smoking Status: Former smoker Tobacco Use: Non-smoker Alcohol: None - *Family History Maternal Family History: Family History (Last Updated 01/12/19 @ 09:17 by Dinora Montoya) Father Heart disease Sister Heart disease Brother Heart disease History Items: No pertinent history Paternal Family History: Family History (Last Updated 01/12/19 @ 09:17 by Dinora Montoya) Father Heart disease Sister Heart disease Brother Heart disease Review of Systems Constitutional: Denies: Anorexia, Chills, Fever, Night Sweats, Malaise, Weaknes s, Weight Change, Fatigue Eyes: Denies: Cataracts, Conjunctivae Inflammation, Double vision, Drainage HEENT: Denies: Dysphasia, Ear Pain, Eye Pain, Hearing Changes, Nasal bleeding, Nasal Congestion, Post Nasal Drip Cardiovascular: Reports: Chest Pain, Chest Pressure. Denies: Claudication, Chest Tightness, Edema, Orthopnea, Palpitations Respiratory: Denies: Cough, Hemoptysis, Pleuritic Pain, Shortness of Breath, Shortness of breath at rest, Shortness of breath upon exertion, Sputum production Gastrointestinal: Denies: Abdominal Pain, Constipation, Diarrhea, Hematemesis, Hematochezia, Nausea, Melena, Vomiting Genitourinary: Denies: Dysuria, Frequency, Hematuria, Hesitancy, Nocturia, Retention, Urgency Musculoskeletal: Denies: Joint Pain, Joint stiffness, Joint swelling Skin: Denies: Dryness, Pruritis, Rash Neurological: Denies: Blurred vision, Double vision, Change in Speech, Slurred speech, Difficulty swallowing, Focal weakness, Headaches, Numbness, Tingling Psychiatric: Denies: Anxiety, Depression, Homicidal Ideations, Suicidal Ideations Endocrine: Denies: Change in Body Habitus, Heat/ Cold Intolerance, Polydipsia, Polyuria Hematologic/ Lymphatic: Denies: Adenopathy, Anemia, Easy Bruising, Easy Bleeding, Petechiae, Purpura VTE Information - Inpt Only VTE Present on Admission: No VTE Mechan Device Prophylaxis: None VTE Pharm Prophylaxis ordered?: No Reason prophylaxis not ordered:: Treatment Not Indicated - observation patient Patient Problems: Active and Suspected Problems (Last Reviewed 03/26/18 @ 14:59 by Meena Pavon) Chest pain (Acute) - Physical Exam Vitals/I&O's: Vital Signs Temp Pulse Resp BP Pulse Ox 97.6 F L 108 H 16 106/80 100 09/25/19 07:21 09/25/19 09:05 09/25/19 09:05 09/25/19 09:05 09/25/19 09:05 Oxygen Flow Rate (L/min) 2 Oxygen Delivery Method Nasal Cannula Weight: 72.6 kg Body Mass Index (BMI) 20.0 Intake and Output for Last 24 Hours 09/23/19 09/24/19 09/25/19 23:59 23:59 23:59 Intake Total 1000 / 1000 Balance 1000 / 999 General: Alert, Oriented x3, Cooperative HEENT: Atraumatic, PERRLA, EOMI, Normocephalic Oral: Moist Mucosa Neck: Supple, No JVD, Trachea Midline, Thyroid Normal Size and Texture Lungs: Clear to auscultation, Normal air movement, No rhonchi, No wheeze, No rales Cardiovascular: Regular rate, Regular Rhythm, Normal S1, Normal S2, No murmurs Abdomen: Bowel Sounds Present, Soft, Non Tender, Non-Distended Extremities: No clubbing, No cyanosis, No edema, Capillary Refill Less than 3 Seconds Skin: No rashes, No breakdown Musculoskeletal: No Tenderness to Palpation of Joints or Extremities Neurological: Cranial nerves II-XII grossly intact, Neuro grossly intact, Muscle tone normal, Sensory exam intact to light touch and pain Psych/Mental Status: Normal Affect, Appropriate, Alert and oriented to time, place, person, mood and affect Laboratory Results 09/25/19 07:37: WBC 5.1, RBC 4.93, Hgb 15.1, Hct 46.0, MCV 93.3, MCH 30.6, MCHC 32.8, RDW Std Deviation 45.4 H, RDW Coeff of Mary 13.3, Plt Count 100 L, MPV 10.7, Immature Gran % (Auto) 0.400, Neut % (Auto) 58.7, Lymph % (Auto) 25.9, Mcdonald % (Auto) 9.9, Eos % (Auto) 3.7, Baso % (Auto) 1.4 H, Absolute Neuts (auto) 3.0, Absolute Lymphs (auto) 1.33, Nucleated RBC % 0 09/25/19 07:37: Sodium 141, Potassium 3.8, Chloride 107, Carbon Dioxide 26.0, Anion Gap 8, BUN 14, Creatinine 1.29, Estim Creat Clear Calc 51.59, Est GFR (MDRD) Af Amer 70, Est GFR (MDRD) Non-Af 58 L, BUN/Creatinine Ratio 10.9, Glucose 110 H, Calcium 8.7, Troponin I < 0.015 Assessment/Plan All Active Problems (Last Reviewed 03/26/18 @ 14:59 by Meena Pavon) Chest pain (Acute) Hypokalemia (Acute)
--- NOTE | 2019-09-25 15:14 | STRESSREP ---
Stress Test Report Date: 09-25-19 Procedure: Pharmacologic stress nuclear imaging study Indications: Chest pain; non-CAD related cardiomyopathy; ICD Consent: Per the patient Procedure: The patient underwent pharmacologic (Regadenoson) evaluation with a peak heart rate of 133 beats per minute (91 %predicted maximal heart rate) and a peak blood pressure of 120/80 mmHg. The baseline ECG demonstrated atrial flutter; nonspecific ST/T wave abnormality. The peak pharmacologic ECG demonstrated no obvious ECG changes. There was a rare PVC pretest, during infusion, and recovery. There was no complaint of chest discomfort during pharmacologic infusion or recovery. The examination was discontinued secondary to completion of protocol. Impression: 1. Pharmacologic (Regadenoson) evaluation 2. Peak pharmacologic ECG with continued nonspecific ST/T wave abnormality. 3. There was a rare PVC pretest, during infusion, and recovery. 4. Nuclear images pending Myocardial perfusion imaging study: Technique: The patient was injected with 10.0 millicuries of technetium 99m Cardiolite and subsequently rest SPECT Cardiolite nuclear imaging was obtained in the horizontal long, vertical long, and short axis views. The patient underwent pharmacologic (Regadenoson) evaluation with a peak heart rate of 133 beats per minute (91 % percent predicted maximal heart rate) and a peak blood pressure of 120/80 mmHg. The patient was injected with 30.0 millicuries of technetium 99m Cardiolite and subsequently stress SPECT Cardiolite nuclear imaging was obtained in the horizontal long, vertical long, and short axis views. A gated Cardiolite study at peak stress was obtained. Interpretation: Rest and stress SPECT Cardiolite nuclear imaging status post realignment, normalization, and attenuation correction demonstrates relative uniform tracer uptake and myocardial perfusion appearing within normal limits. The gated Cardiolite study demonstrates myocardial thickening and inward wall motion. The reported LVEF is 42 %. Impression: 1. Rest and stress SPECT Cardiolite nuclear imaging demonstrate relative uniform tracer uptake and myocardial perfusion appearing within normal limits. 2. The gated Cardiolite study reports an LVEF of 42 %. This note was generated with IdeaStringation software. It may contain incorrect words, spelling, and punctuation that were not noted in checking the note before signing.
--- NOTE | 2019-09-25 16:31 | ECHOD_ITS ---
Reason For Study: AFIB/FLUTTER Procedure This was a 2D Doppler, Color Flow transthoracic echocardiogram. The study was technically difficult. Exam performed portable in patient room. Left Ventricle Normal LV size. Mild global left ventricular systolic dysfunction. The estimated ejection fraction is 40 %. Unable to assess diastolic dysfunction. Right Ventricle Normal RV size. ICD or pacer leads identified within the right ventricle. Normal systolic function. Atria Normal left atrium. The right atrium is mildly enlarged. ICD or pacer leads identified within the right atrium. No doppler evidence for ASD. Mitral Valve There is no mitral annular calcification. Mild diffuse mitral valve thickening. Mild mitral valve prolapse. Trivial mitral valve insufficiency. Tricuspid Valve Normal tricuspid valve. Trivial tricuspid valve insufficiency. Right ventricular systolic pressure estimated to be 17 mmHg. Aortic Valve Trisinus/trileaflet aortic valve. Mild diffuse aortic valve thickening. Pulmonic Valve The pulmonic valve is not well visualized. Trivial pulmonic valve insufficiency. Great Vessels Mild to moderately dilated aortic root. Pericardium/Pleural No pericardial effusion. MMode/2D Measurements & Calculations LVIDd: 4.8 cm IVSd: 1.0 cm Ao root diam: 4.6 cm LVIDs: 3.2 cm LVPWd: 1.0 cm RVDd: 3.5 cm FS: 32.7 % LAV(MOD-bp): 33.2 ml LA A4 area: 14.1 cm2 RA A4 area: 17.9 cm2 LAV(MOD-bp) Indexed: 17.2 ml/m2 LAV(MOD-sp2): 25.4 ml LAV(MOD-sp4): 35.7 ml Time Measurements MV dec time: 0.17 sec Doppler Measurements & Calculations MV E max ana luisa: 51.4 cm/sec Ao V2 max: 80.6 cm/sec LV V1 max: 71.3 cm/sec MV A max ana luisa: 56.9 cm/sec Ao max P.6 mmHg LV V1 max P.0 mmHg MV E/A: 0.90 PA V2 max: 53.9 cm/sec TR max ana luisa: 185.4 cm/sec TR max P.7 mmHg Interpretation Summary The study was technically difficult. Mild global left ventricular systolic dysfunction. The estimated ejection fraction is 40 %. The right atrium is mildly enlarged. Mild mitral valve prolapse. Mild diffuse mitral valve thickening. Trivial mitral valve insufficiency. Trivial tricuspid valve insufficiency. Mild diffuse aortic valve thickening. Trivial pulmonic valve insufficiency. Mild to moderately dilated aortic root. Right ventricular systolic pressure estimated to be 17 mmHg. Unable to assess diastolic dysfunction. ICD or pacer leads identified within the right atrium ICD or pacer leads identified within the right ventricle. Ordering Physician: Orion Diana Referring Physician: BLU PCP Performed By: Brii Keller, DAT, RVT
--- NOTE | 2019-09-25 16:52 | EKG12_ITS ---
Test Reason : CP Blood Pressure : / mmHG Vent. Rate : 105 BPM Atrial Rate : 227 BPM P-R Int : 000 ms QRS Dur : 098 ms QT Int : 364 ms P-R-T Axes : -89 056 026 degrees QTc Int : 481 ms Atrial flutter with variable A-V block Septal infarct , age undetermined Abnormal ECG Confirmed by CHARLA GRAVES, STARR ([id number]), book or script editor LOUIS WILLIAMSON ([id number]) on 09/30/2019 11:23:15 AM Referred By: Orion Diana Confirmed By:STARR DUNHAM MD
[2019-09-25] MEDS: Rivaroxaban 20 MG Tablet PO (17:33)
[2019-09-25] MEDS: 0.9% Normal Saline 1,000 ML 75 ML IV (17:34)
[2019-09-25] MEDS: Digoxin 250 MCG/ML Ampul 500 MCG IV (17:46)
[2019-09-25] MEDS: Atorvastatin Calcium 10 MG Tablet PO (21:56)
[2019-09-25] MEDS: Metoprolol Tartrate 25 MG Tablet 12.5 MG PO (21:56)
[2019-09-26 02:55] VITALS: PULSE 78
[2019-09-26 03:45] VITALS: BP 99/58; PULSE 75; RESP 16; TEMP 36.4; O2SAT 98
[2019-09-26 06:13] LABS: Anion Gap 7 (5-15); BUN 17 mg/dL (7-18); BUN/Creat Ratio 14.3 RATIO (10-20); Calcium,Total 7.9 mg/dL (8.5-10.1); Chloride 111 mmol/L (98-107); Creatinine, Serum 1.19 mg/dL (0.70-1.30); EST Glomerular Filtration Rate 64 mL/min (>60); Est Glom Filt Rate - Afr Amer 77 mL/min (>60); Estimated Creatinine Clearance 51.92 ml/min; Glucose 84 mg/dL (74-106); Potassium 4.3 mmol/L (3.5-5.1); Sodium Level 142 mmol/L (136-145)
[2019-09-26] MEDS: 0.9% Normal Saline 1,000 ML 75 ML IV (06:52)
[2019-09-26 06:56] VITALS: PULSE 79
[2019-09-26 08:20] VITALS: BP 101/54; PULSE 77; RESP 16; TEMP 36.6; O2SAT 96
[2019-09-26 10:45] VITALS: BP 100/55; PULSE 84; RESP 18; TEMP 36.6; O2SAT 98
[2019-09-26] MEDS: Digoxin 250 MCG Tablet PO (11:20)
[2019-09-26] MEDS: Amiodarone 200 MG Tablet PO (11:21)
[2019-09-26 11:22] VITALS: BP 100/55; PULSE 84
[2019-09-26] MEDS: Metoprolol Tartrate 25 MG Tablet 12.5 MG PO (11:22)
--- NOTE | 2019-09-26 12:00 | NURSING ---
STUDENT RN AND INSTRUCTOR CAME TO [facility] TO INFORM THAT PTS SAID THAT HE FEELS LIKE HURTING HIMSELF. DR MENDIOLA ON FLOOR AND GOING IN TO ASSESS PT AND SITUATION.
--- NOTE | 2019-09-26 12:40 | CON.PCM_ITS ---
Problem List (1) Atrial flutter Status: Acute (2) Ventricular tachycardia Status: Chronic (3) Presence of cardiac defibrillator Status: Chronic (4) Cardiomyopathy Status: Chronic Qualifiers: Cardiomyopathy type: unspecified Qualified Code(s): I42.9 - Cardiomyopathy, unspecified (5) Nonrheumatic mitral (valve) prolapse Status: Chronic (6) Thoracic aortic aneurysm without rupture Status: Chronic (7) Hyperlipidemia Status: Chronic Qualifiers: Hyperlipidemia type: unspecified Qualified Code(s): E78.5 - Hyperlipidemia, unspecified (8) Hypertension Status: Chronic Qualifiers: Hypertension type: essential hypertension Qualified Code(s): I10 - Essential (primary) hypertension Reason for Consult Date of Consultation: 09/26/19 History of Present Illness: The patient is a 74 year old white male with a past cardiovascular history which is included underlying ventricular dysrhythmias, status post ICD placement, Non- CAD related cardiomyopathy, mitral valve prolapse, thoracic aortic aneurysm- ascending without rupture, hyperlipidemia, and hypertension who is referred for evaluation of underlying atrial flutter.He states that he has been feeling well. He notes that recently over the last few days he may have felt somewhat lightheaded. He denies any loss of consciousness spells. He denies his ICD discharging. He does not recall having any ongoing chest discomfort or difficul ty breathing. Based upon his feelings yesterday he presented to the emergency department for further evaluation. He was subsequently brought into the hospital for further cardiac evaluation of his symptoms. Based upon concerns of a change in his cardiovascular condition he underwent laboratory studies which demonstrated negative troponin I level as well as a pharmacologic stress nuclear imaging study which was considered negative for evidence of stress-induced myocardial ischemia. He was subsequently monitored overnight and had a follow- up transthoracic echocardiogram this day. His overall LV systolic function remain mildly diminished with an estimated LVEF of 40%. He has been noted since his presentation to the hospital to have an underlying cardiac rhythm appearing compatible with atrial flutter. He was treated with additional rate limiting medication with digitalis in the hopes of controlling his heart rate and minimizing any adverse effects on his already lower blood pressure. His rate has come under better control. He was also placed on anticoagulant therapy with Xarelto. Today he states overall he does feel better. He denies any ongoing acute symptoms. He states he wants to return home and continue with his activities. He does want to continue with future outpatient follow-up. He has denied any acute orthopnea or PND. There is been no ongoing peripheral pitting edema. His spouse states that he has had loose bowel movements at home. He denies this. She also states that he seems somewhat more anxious or irritable at home. She states that he has commented that he is tired of his multiple medical issues. She states there are times when she knows he does not feel the best, will lie down and rest, and states that if anything were to happen to him he would want to just . She states she has not witnessed him attempting to harm himself. She states that they were both in counseling long ago. She does not believe he has been on any type of mood altering medications.[] Past Medical History Allergies/Adverse Reactions: Allergies No Known Allergies Allergy (Verified 09/25/19 07:28) Home Medications: Ambulatory Orders Medication Instructions Recorded simvastatin 20 mg tablet 20 mg PO QHS #90 tab 11/12/18 metoprolol tartrate 25 mg tablet 12.5 mg PO BID #90 tab 08/03/19 Amiodarone HCl 200 mg PO DAILY 09/25/19 Vit A/Vit C/Vit E/Zinc/Copper 1 ea PO BID 09/25/19 [Preservision Areds Tablet] Digoxin [Lanoxin] 250 mcg PO DAILY #30 tablet 09/26/19 Potassium Chloride [K-Dur] 20 meq PO DAILY #60 tablet 09/26/19 Rivaroxaban [Xarelto] 20 mg PO DAILY@1700 #30 tablet 09/26/19 Past Medical History (Chronic Problems): Chronic Problems (Last Reviewed 03/26/18 @ 14:59 by Meena Pavon) SVT (supraventricular tachycardia) (Chronic) Presence of cardiac defibrillator (Chronic) Nonrheumatic mitral (valve) prolapse (Chronic) Premature ventricular contraction (Chronic) Cardiomyopathy (Chronic) Ventricular tachycardia (Chronic) Hyperlipidemia (Chronic) Hypertension (Chronic) Thoracic aortic aneurysm without rupture (Chronic) Surgical History: - - ICD Psychiatric History: No pertinent psych hx - *Family History Maternal Family History: Family History (Last Updated 01/12/19 @ 09:17 by Dinora Montoya) Father Heart disease Sister Heart disease Brother Heart disease History Items: No pertinent history Paternal Family History: Family History (Last Updated 01/12/19 @ 09:17 by Dinora Montoya) Father Heart disease Sister Heart disease Brother Heart disease Lives: Spouse/ Significant Other Smoking Status: Former smoker Tobacco Use: Cigarettes Alcohol: None Drugs: None Review of Systems - Review of Systems General: Denies: Fever, Night Sweats, Fatigue Cardiovascular: Reports: Lightheadedness. Denies: Chest Discomfort, Shortness of Breath, Orthopnea, PND, Peripheral Edema, Palpitations, Dizziness, Near Syncope, Syncope Respiratory: Denies: Cough, Sputum Production, Hemoptysis Gastrointestinal: Denies: Hematemesis, Hematochezia, Melena Genitourinary: Denies: Dysuria, Hematuria Skin: Denies: Rash Subjectve: A 74-year-old white male who appears to be resting comfortably at the moment in no acute distress. Objective: Vital Signs Temp Pulse Resp BP Pulse Ox 97.9 F 84 18 100/55 L 98 09/26/19 10:45 09/26/19 11:22 09/26/19 10:45 09/26/19 11:22 09/26/19 10:45 Oxygen Flow Rate (L/min) 2 Oxygen Delivery Method Room Air Weight: 148 lb 9.465 oz Body Mass Index (BMI) 18.6 Intake and Output for Last 24 Hours 09/24/19 09/25/19 09/26/19 23:59 23:59 23:59 Intake Total 2226.25 / 2226.25 623.75 / 623.75 Balance 2226.25 / 2226.25 623.75 / 623.75 General: Awake, Alert, Oriented x 3, Cooperative, No Acute Distress HEENT: Atraumatic, Normocephalic, PERRL, EOMI, Sclera Non Icteric Oral: Moist Mucosa Neck: Supple, Good ROM, No JVD Lungs: Clear to auscultation Cardiovascular: Irregular Rhythm, Normal S1, Normal S2 Vascular: No Carotid Bruits Abdomen: Bowel Sounds Present, Soft, Non Tender Extremities: No Cyanosis, No Clubbing, No edema Neurological: No Focal Motor or Sensory Deficit Psych/Mental Status: Flat Affect 09/25/19 13:15: Troponin I < 0.015 09/26/19 05:24: Sodium 142, Potassium 4.3, Chloride 111 H, Carbon Dioxide 24.0, Anion Gap 7, BUN 17, Creatinine 1.19, Est GFR (MDRD) Af Amer 77, Est GFR (MDRD) Non-Af 64, BUN/Creatinine Ratio 14.3, Glucose 84, Calcium 7.9 L Rhythm:Atrial flutter EKG:Atrial flutter ECHO: Interpretation Summary The study was technically difficult. Mild global left ventricular systolic dysfunction. The estimated ejection fraction is 40 %. The right atrium is mildly enlarged. Mild mitral valve prolapse. Mild diffuse mitral valve thickening. Trivial mitral valve insufficiency. Trivial tricuspid valve insufficiency. Mild diffuse aortic valve thickening. Trivial pulmonic valve insufficiency. Mild to moderately dilated aortic root. Right ventricular systolic pressure estimated to be 17 mmHg. Unable to assess diastolic dysfunction. ICD or pacer leads identified within the right atrium ICD or pacer leads identified within the right ventricle. Stress Test: Stress Test Report Date: 09-25-19 Procedure: Pharmacologic stress nuclear imaging study Indications: Chest pain; non-CAD related cardiomyopathy; ICD Consent: Per the patient Procedure: The patient underwent pharmacologic (Regadenoson) evaluation with a peak heart rate of 133 beats per minute (91 %predicted maximal heart rate) and a peak blood pressure of 120/80 mmHg. The baseline ECG demonstrated atrial flutter; nonspecific ST/T wave abnormality. The peak pharmacologic ECG demonstrated no obvious ECG changes. There was a rare PVC pretest, during infusion, and recovery. There was no complaint of chest discomfort during pharmacologic infusion or recovery. The examination was discontinued secondary to completion of protocol. Impression: 1. Pharmacologic (Regadenoson) evaluation 2. Peak pharmacologic ECG with continued nonspecific ST/T wave abnormality. 3. There was a rare PVC pretest, during infusion, and recovery. 4. Nuclear images pending Myocardial perfusion imaging study: Technique: The patient was injected with 10.0 millicuries of technetium 99m Cardiolite and subsequently rest SPECT Cardiolite nuclear imaging was obtained in the horizont al long, vertical long, and short axis views. The patient underwent pharmacologic (Regadenoson) evaluation with a peak heart rate of 133 beats per minute (91 % percent predicted maximal heart rate) and a peak blood pressure of 120/80 mmHg. The patient was injected with 30.0 millicuries of technetium 99m Cardiolite and subsequently stress SPECT Cardiolite nuclear imaging was obtained in the horizontal long, vertical long, and short axis views. A gated Cardiolite study at peak stress was obtained. Interpretation: Rest and stress SPECT Cardiolite nuclear imaging status post realignment, normal ization, and attenuation correction demonstrates relative uniform tracer uptake and myocardial perfusion appearing within normal limits. The gated Cardiolite study demonstrates myocardial thickening and inward wall motion. The reported LVEF is 42 %. Impression: 1. Rest and stress SPECT Cardiolite nuclear imaging demonstrate relative uniform tracer uptake and myocardial perfusion appearing within normal limits. 2. The gated Cardiolite study reports an LVEF of 42 %. Cardiac Cath: 3??2010: [facility]: Left ventricle: Estimated LVEF approximately 40%; coronary arteries considered to be angiographically normal CXR:Preliminary evaluation: Status post pacemaker/ICD placement; no acute cardiopulmonary disease process appreciated; please see official report Assessment/Plan 1. Atrial flutter The patient appears to demonstrate evidence of underlying atrial flutter. The etiology may be multifactorial with contribution from his age, cardiac condition, possible COPD, etc. The duration of the atrial flutter is uncertain at this time. A future ICD interrogation may give some information regarding the timing of his atrial dysrhythmia. In the meantime he is continuing rate control therapy, his antiarrhythmic therapy which she is already on with amiodarone, and initiation of anticoagulant therapy. Over time consideration can be given to an attempt at regaining sinus rhythm with synchronized biphasic DC cardioversion once he has had adequate anticoagulation therapy. Depending upon his future clinical course, he may or may not need to be evaluated by electrophysiology for consideration for some form of EPS study/flutter ablation versus potentially AV node ablation allowing his pacemaker/ICD to control his underlying rate and rhythm. 2. Ventricular dysrhythmias/tachycardia The patient has had a history of underlying ventricular dysrhythmias. He has been on medical management with amiodarone. He does have an ICD in place. It was interrogated in June of this year and was functioning appropriately. 3. ICD Again he does have an ICD in place. Based upon his last interrogation was functioning appropriately. His ICD can be interrogated in the future which may give additional information regarding his atrial dysrhythmia, etc. 4. Non-CAD related cardiomyopathy The patient has a non-CAD related cardia myopathy. He is undergone evaluation for any change in his status with troponin I levels which were negative. His echocardiogram does not demonstrate any obvious change in his left ventricular wall motion or systolic function. His pharmacologic stress nuclear imaging study appear to be negative for any evidence of stress- induced myocardial ischemia. He will continue medical management with adjustment as tolerated based upon his clinical course, vital signs, etc. 5. Mitral valve prolapse He does have a history of mitral valve prolapse. He has been evaluated for this noninvasively. He has been on medical management with beta-blockers as tolerated. 6. Thoracic aortic root aneurysm He does have a history of an underlying thoracic aortic root aneurysm. This is being followed noninvasively at this time. 7. Hyperlipidemia He will continue medical management as deemed appropriate. 8. Hypertension His blood pressures appear to be well controlled. His medicines are being adjusted to try and minimize any additional hypotensive episodes. Comment: The patient's case was discussed and reviewed with the patient, his spouse, and Dr. Diana of the [facility] staff. At the present time he will continue cardiovascular medical management with plans for future outpatient cardiovascular follow-up. In the interim Dr. Diana of the [facility] staff will also discuss with the patient and his spouse concerns regarding his mood and whether or not he needs to be reevaluated from a counseling standpoint and/or placed on some form of mood altering medication.
--- NOTE | 2019-09-26 12:43 | NURSING ---
1145 pt came out in the hallway, crying, states I'm scared my is going to hurt himself. He said he is going to put himself into the coffin. SN gives emotional support to . states please don't say anything to anyone, especially him. SN explained to that it is this nurses responsibility to report that information to primary nurse and physician. responds okay, but I don't want you to say anything to him. This nurse reports above information to CHANA Horner nursing home assistant administrator. Primary RN, Omer, notified as well.
--- NOTE | 2019-09-26 12:47 | PCM.DC ---
- Discharge Diagnoses Current Active Problems: Current Active and Chronic Problems (Last Reviewed 03/26/18 @ 14:59 by Meena Pavon) Chest pain (Acute) You will use the following diet at home:: No restrictions Your food should be the consistency of: Regular Your liquids should be the consistency of: Regular/Thin Discharge Activity: Return to Normal Activity Weight Bearing Status: Full weight bearing Additional Instructions: get lab done on of this week Allergies/Adverse Reactions: Allergies No Known Allergies Allergy (Verified 09/25/19 07:28) Medications to take at Discharge simvastatin 20 mg tablet 20 mg PO QHS #90 tab 11/12/18 metoprolol tartrate 25 mg tablet 12.5 mg PO BID #90 tab 08/03/19 Amiodarone HCl 200 mg PO DAILY 09/25/19 Vit A/Vit C/Vit E/Zinc/Copper [Preservision Areds Tablet] 1 ea PO BID 09/25/19 Digoxin [Lanoxin] 250 mcg PO DAILY #30 tab 09/26/19 Potassium Chloride [K-Dur] 20 meq PO DAILY #60 tab 09/26/19 Rivaroxaban [Xarelto] 20 mg PO DAILY@1700 #30 tab 09/26/19 The following prescriptions were given: Potassium Chloride [K-Dur] 20 meq PO DAILY #60 tab Transmission Status: Pending to [facility] [place] [address] Digoxin [Lanoxin] 250 mcg PO DAILY #30 tab Transmission Status: Pending to [facility] Rivaroxaban [Xarelto] 20 mg PO DAILY@1700 #30 tab Transmission Status: Pending to [facility] [place] [address] Primary Care Physician: Jori Stevens MD [STAFF PHYSICIAN] - Please follow up with your Primary Care Physician in: as scheduled Test Results: Test results from this visit will be discussed in further detail at your follow-up appointment, if applicable. Please Follow Up With: Anupam Reece MD When: in 4 weeks
--- NOTE | 2019-09-26 12:51 | NURSING ---
1210 Pt states I'm sorry you had to hear all of that nonsense about me harming myself, that's a conversation for my and I. It is none of the doctor's business, or yours. I don't need you guys going and spreading this around the coffee table. SN provided emotional support and explain to pt that only people relevant to pt care would be notified. The pt then stated I don't trust that, I don't need people knowing my personal thoughts that don't effect them. I don't need to talk to any of you about this. And me saying this stuff is not me talking to you about it. Emotional support provided. Omer, primary RN notified.
--- NOTE | 2019-09-26 13:00 | NURSING ---
Addendum entered by Siri Caal 09/26/19 13:04: entered at the wrong time-occured at 1215 Original Note: 1245 Tamara,SN reports pts spouse verbalized concerns that the patient is having thoughts of harming himself. Omer,Primary RN notified. Faith Stovall RN notified-who reports the Physician is currently on the unit and she will update him
--- NOTE | 2019-09-26 13:15 | NURSING ---
This RN was notified by student RN that pt's stated her mentioned hurting himself. Dr. Diana was notified by Faith ugalde RN. Dr. Diana assessed patient. This RN also spoke with pt and pt stated he has no intentions of harming himself, but he is occasionally sad due to his medical health. Dr. Diana aware of situation.
--- NOTE | 2019-09-26 13:28 | NURSING ---
This nurse reviewed charting of SN Tamara
--- NOTE | 2019-09-26 16:20 | PCM.DC.SUM ---
Discharge Date and Diagnosis Date of Admission: 09/25/19 Date of Discharge: 09/26/19 - Primary Discharge Diagnosis #1 musculoskeletal chest pain #2 new onset atrial flutter #3 nonischemic cardiomyopathy #4 essential hypertension #5 hyperlipidemia - Secondary Discharge Diagnosis Chronic Problems (Last Reviewed 03/26/18 @ 14:59 by Meena Pavon) SVT (supraventricular tachycardia) (Chronic) Presence of cardiac defibrillator (Chronic) Nonrheumatic mitral (valve) prolapse (Chronic) Premature ventricular contraction (Chronic) Cardiomyopathy (Chronic) Ventricular tachycardia (Chronic) Hyperlipidemia (Chronic) Hypertension (Chronic) Thoracic aortic aneurysm without rupture (Chronic) Hospital Course and Treatment Operations: None, - - Robotic right partial nephrectomy Procedures: 2-D Echocardiogram, Nuclear stress test Summary of Care Provided: The patient is a 74 year old M was seen in the emergency room at [facility] with chief complaint of chest pain. He has a history of a nonischemic cardiomyopathy and sees Dr. Reece chronically. Work-up in the emergency room included cardiac enzymes, chest x-ray, and an EKG. Cardiac enzymes and chest x-ray were unremarkable, EKG was read out as a normal sinus rhythm-actually on reexamination before the patient was discharged, this EKG actually showed atrial flutter. Patient's CBC and chemistry profile was unremarkable. Patient was placed in observation status on PCU, cardiac enzymes are cycled and these remain normal. The following day on 09/25/2019, patient underwent a cardiac stress test-during that stress test it was noted that the patient was in atrial fibrillation, the stress test was negative for reversible ischemia. Cardiology was contacted and this case was discussed with them, it was recommended the patient be placed on digoxin and it was felt that the patient needed to be placed on an anticoagulant-Xarelto was used. On 09/26/2019, patient underwent an echocardiogram which showed an EF of 40%, he was seen in consultation by cardiology who felt that the patient was stable for discharge with follow-up in the office. On examination he appeared in good health and spirits. Vital signs as documented. Skin warm and dry and without overt rashes. Neck without JVD. Lungs clear. Heart exam notable for regular rhythm, normal sounds and absence of murmurs, rubs or gallops. Abdomen unremarkable and without evidence of organomegaly, masses, or abdominal aortic enlargement. Extremities nonedematous. Neuro: Cranial nerves II through XII are grossly intact, no focal motor deficits were noted, sensation to light touch and pinprick intact. Psych: Patient is alert and oriented x3, he does not appear anxious or depressed On 09/26/2019, patient was seen and examined felt to be in stable condition for discharge home - Physical Exam Vitals/I&O's: Vital Signs Temp Pulse Resp BP Pulse Ox 97.9 F 84 18 100/55 L 98 09/26/19 10:45 09/26/19 11:22 09/26/19 10:45 09/26/19 11:22 09/26/19 10:45 Oxygen Flow Rate (L/min) 2 Oxygen Delivery Method Room Air Weight: 67.4 kg Body Mass Index (BMI) 18.6 Intake and Output for Last 24 Hours 09/24/19 09/25/19 09/26/19 23:59 23:59 23:59 Intake Total 2226.25 / 2226.25 1376.25 / 1376.25 Balance 2226.25 / 2226.25 1376.25 / 1376.25 Laboratory Results 09/26/19 05:24: Sodium 142, Potassium 4.3, Chloride 111 H, Carbon Dioxide 24.0, Anion Gap 7, BUN 17, Creatinine 1.19, Estim Creat Clear Calc 51.92, Est GFR (MDRD) Af Amer 77, Est GFR (MDRD) Non-Af 64, BUN/Creatinine Ratio 14.3, Glucose 84, Calcium 7.9 L Discharge Activity: Return to Normal Activity Weight Bearing Status: Full weight bearing Home Medications: Medications to take at Discharge simvastatin 20 mg tablet 20 mg PO QHS #90 tab 11/12/18 metoprolol tartrate 25 mg tablet 12.5 mg PO BID #90 tab 08/03/19 Amiodarone HCl 200 mg PO DAILY 09/25/19 Vit A/Vit C/Vit E/Zinc/Copper [Preservision Areds Tablet] 1 ea PO BID 09/25/19 Digoxin [Lanoxin] 250 mcg PO DAILY #30 tab 09/26/19 Potassium Chloride [K-Dur] 20 meq PO DAILY #60 tab 09/26/19 Rivaroxaban [Xarelto] 20 mg PO DAILY@1700 #30 tab 09/26/19 Following Prescrptions Were Given to Patient: Potassium Chloride [K-Dur] 20 meq PO DAILY #60 tab Transmission Status: Received by PARESH MANDUJANO RD Digoxin [Lanoxin] 250 mcg PO DAILY #30 tab Transmission Status: Received by PARESH [id number] NAZIA ERIC Rivaroxaban [Xarelto] 20 mg PO DAILY@1700 #30 tab Transmission Status: Received by PARESH [id number] NAZIA ERIC Primary Care Physician: Jori Stevens MD [STAFF PHYSICIAN] - Please follow up with your Primary Care Physician in: as scheduled Please Follow Up With: Anupam Reece MD When: in 4 weeks Disposition: Home Minutes spent on discharge:: 31 Patient Condition:: Stable Medical Necessity - Tobacco Use Smoking Status: Former smoker Tobacco Use: Cigarettes Meaningful Use Info Meaningful Use Diagnoses (Choose all that apply): None applicable Code Visit OBSV E&M: 93158 Observation care discharge
== END 2019-09-26 13:32 | disposition home or self-care (01) ==
LOC: ED 08:03 → PCU 09:26
PROVIDERS: Admitting Provider Internal Medicine; Emergency Provider Emergency Medicine; Referring Provider Internal Medicine; Visit Provider Internal Medicine
DX: R07.89 Other chest pain (principal); I48.92 Unspecified atrial flutter; R94.31 Abnormal electrocardiogram [ECG] [EKG]; I42.8 Other cardiomyopathies; E78.5 Hyperlipidemia, unspecified; I10 Essential (primary) hypertension; K21.9 Gastro-esophageal reflux disease without esophagitis; E87.6 Hypokalemia; F32.9 Major depressive disorder, single episode, unspecified; Z79.899 Other long term (current) drug therapy; Z79.82 Long term (current) use of aspirin; Z95.810 Presence of automatic (implantable) cardiac defibrillator; Z87.891 Personal history of nicotine dependence
CPT/HCPCS: 36415; 71045; 78452; 80048; 84484; 85025; 93005; 93017; 93306; 96361; 96374; 99218; 99285; A9500; J7030; J7040; A4216; G0378; J2785

== ENCOUNTER 2019-09-27 07:02 | Emergency (ER) | payer MEDICARE, OTHER, SELFPAY ==
[2019-09-25 11:28] VITALS: BMI 18.6
[2019-09-27] VITALS (9 sets, daily range): BP systolic 66–127; BP diastolic 48–99; PULSE 82–203; RESP 15–19; TEMP 36.1–36.6; O2SAT 94–100; BMI 18.5
--- NOTE | 2019-09-27 07:28 | EKG12_ITS ---
Test Reason : TACYCARDIA Blood Pressure : / mmHG Vent. Rate : 106 BPM Atrial Rate : 106 BPM P-R Int : 210 ms QRS Dur : 098 ms QT Int : 348 ms P-R-T Axes : 000 078 264 degrees QTc Int : 462 ms Atrial Flutter Septal infarct , age undetermined Nonspecific ST abnormality Abnormal ECG Confirmed by CHARLA GRAVES, STARR ([id number]), editorial director LOUIS WILLIAMSON ([id number]) on 09/30/2019 10:52:33 AM Referred By: LARA Confirmed By:STARR DUNHAM MD
--- NOTE | 2019-09-27 07:28 | ED.VIS.GEN ---
History of Present Illness Chief Complaint: Dizziness Informant: Patient, Family Onset: Days Current Severity: Mild Narrative: Patient presents complaining of dizziness diaphoresis jaw pain palpitations, his heart rate was about 160-180, his initial blood pressure was recorded by triage nurses to be 66/64 indicates he was in the hospital discharge Saturday afternoon related to identical symptoms of dizziness jaw pain chest pain palpitations, has a history of cardiomyopathy cardiac defibrillator, he indicates was diagnosed with A. fib he was started on Xarelto he felt fine when he went home he felt fine up until 6 AM this morning when he again felt palpitations diaphoresis mild chest pain jaw pain and overwhelming sense of dizziness he was brought to the emerge part by the in triage she was noted to have a wide-complex tachycardic rhythm at 160 180 blood pressure was as above he was brought back immediately to the resuscitation bay where he converted to a sinus rhythm rate 100 blood pressure 120/80 He currently has no symptoms Past Medical History - Allergies and Home Meds Allergies/Adverse Reactions: Allergies No Known Allergies Allergy (Verified 09/27/19 07:09) Primary Care Physician: Jori Lieberman MD [Primary Care Provider] - Past Medical History: - - Cardiomyopathy cardiac defibrillator he indicates she does not have a history of CAD Surgical History: - - ICD Smoking Status: Former smoker - Family History Maternal Family History: Family History (Last Updated 01/12/19 @ 09:17 by Dinora Montoya) Father Heart disease Sister Heart disease Brother Heart disease Family History: Reports: No pertinent history Review of Systems General: Reports: - - Dizziness and diaphoresis and as above. Denies: Chills, Fever, Sweats Eyes: Denies: Visual changes - bilaterally, Diplopia ENT: Denies: Rhinorrhea, Sore throat Cardiovascular: Reports: Chest pain, Palpitations Respiratory: Denies: Dyspnea, Cough, Dyspnea on exertion Gastrointestinal: Denies: Abdominal pain, Nausea, Vomiting, Diarrhea, Melena, Hematochezia Genitourinary: Denies: Dysuria, Hematuria, Frequency Musculoskeletal: Denies: Back pain, Extremity Pain Skin: Denies: Rash, Wounds Neurological: Denies: Headache, Weakness, Numbness Physical Exam Vital Signs/Narrative: Vital Signs Temp Pulse Resp BP Pulse Ox 09/27/19 07:27 96 19 H 126/79 H 09/27/19 07:03 97 F L 203 H 18 66/48 L 99 General: Well nourished, Well developed, No Acute Distress Head: Normocephalic, Atraumatic Eyes: Perrl, EOMI ENT: Moist mucous membranes, No rhinorrhea Neck: Supple, Nontender Cardiovascular: Regular rate, Regular rhythm, No murmurs Respiratory: No distress, CTA bilaterally, Chest nontender, - - Currently asymptomatic relationship specialist shows sinus rhythm rate 100 Abdomen: Soft, Nontender, Nondistended, Normal bowel sounds Back: Nontender, Normal Inspection Extremities: Nontender, No edema Skin: Normal color, No rash Neurological: Alert, Oriented x3, Cranial nerves II-XII grossly intact, Normal Strength, Normal Sensation Psychological: Normal affect, Normal Mood Diagnostic/Tx/Re-eval - Medical Decision Making Patient's EKG shows sinus rhythm rate 100 qrs duration 0.10 no acute injury pattern He is currently asymptomatic but he did present to triage with a tachycardic rhythm was captured on the monitor at this time will obtain screening labs continue to monitor him discussed case with Dr. Reece his functional skills tutor Patient screening labs and x-rays are unremarkable, see those reports, on reevaluation he is remained in a sinus rhythm, Dr. Reece's cardiology came down to see him, and looking at his EKG there is a concern that he actually has a slow a flutter and not sinus is very difficult to distinguish this slow a flutter from sinus per Dr. Reece as it is atypical and currently he is also on amiodarone, Dr. Reece asked that the device manager poker come in to interrogate the patient's pacemaker defibrillator Dr. Reece reports the interrogation of device reveals that it is unclear if the wide-complex tachycardia was rapid a flutter or the device trying to pace him out of a rapid rhythm, the patient spontaneously terminated to a slow rhythm just before the threshold to defibrillate Patient is resting comfortably in bed he is been seen multiple times by cardiology, at this time Dr. Reece is going to discuss with EP cardiac chronic specialist to determine best management options Disposition pending cardiology evaluation Dr. Reece has spoken to [facility] EP functional skills tutor Dr. nolasco, who accepted the patient in transfer patient is agreeable, we are coordinating the transfer with [facility] Final impression Tachycardia, a flutter, cardiomyopathy, cardiac defibrillator, transferred to [facility] ED Disposition - Plan for ED Patient: Diagnosis: Cardiac dysrhythmia Referrals: Jori Lieberman MD [Primary Care Provider] -
--- NOTE | 2019-09-27 07:29 | RAD_ITS ---
STUDY: X-RAY CHEST REASON FOR EXAM: Male, 74 years old. Chest pain, atrial fibrillation, dizziness and sweating. TECHNIQUE: Single AP portable view of the chest. 2 images COMPARISON: 09/25/2019 FINDINGS: There are superimposed monitor leads. There is an anterior chest wall single chamber permanent pacemaker. There is hyperinflation of the lungs consistent with chronic obstructive lung disease (COPD). There is pleural fibrotic thickening of the pulmonary lung apices. Normal size heart. Normal mediastinum and araceli. Normal visualized pulmonary arteries. There is atherosclerotic calcification of the aortic arch with tortuosity. There are diffuse degenerative changes of the visualized thoracic spine. There is demineralization of osseous structures. Normal visualized ribs, clavicles, and shoulders. There is no demonstrated abnormality of the visualized soft tissue structures of the upper abdomen. RAD/Chest 1 View (Portable) IMPRESSION: Stable emphysema. No acute cardiopulmonary disease. No significant interval change. Electronically Signed: Rachael Degroot MD at 7:49 EST , Service support ,
[2019-09-27 07:38] LABS: Absolute Lymphocyte Count 1.95 X10^3/uL (0.83-4.51); Absolute Neutrophil Count 4.1 X10^3/uL (2.0-7.7); Basophil# 0.11 X10^3/uL; Basophil% 1.6 % (0-1); Eosinophil# 0.23 X10^3/uL; Eosinophils% 3.3 % (0-5); Hematocrit 50.8 % (40-54); Hemoglobin 16.7 g/dL (13.0-16.5); Lymphocyte # 1.95 X10^3/ul (4.0); Lymphocyte % 27.7 % (19-41); Mean Corp Hgb Conc 32.9 g/dL (32-36); Mean Corpuscular Hgb 30.5 pg (27.0-32.0); Mean Corpuscular Volume 92.9 fL (80-94); Mean Platelet Vol. 10.7 fl (6.2-12.0); Monocyte# 0.61 X10^3/uL; Monocyte% 8.7 % (0-10); NRBC Flagged by Analyzer 0 % (0-5); Neutrophil # 4.11 X10^3/uL (2.7-7.7); Neutrophil % 58.4 % (47-70); Platelet Count 124 K/mm3 (150-450); RBC Distribution Width CV 13.2 % (11.6-14.6); RBC Distribution Width SD 45.1 fl (35.1-43.9); Red Blood Count 5.47 M/mm3 (4.6-6.2)
--- NOTE | 2019-09-27 08:09 | EKG12_ITS ---
Test Reason : REPEAT Blood Pressure : / mmHG Vent. Rate : 099 BPM Atrial Rate : 099 BPM P-R Int : 122 ms QRS Dur : 094 ms QT Int : 350 ms P-R-T Axes : 090 076 -75 degrees QTc Int : 449 ms Rhythm strip... 1) @ 50.0 mm/s 2) Atrial Flutter Abnormal ECG Confirmed by CHARLA GRAVES, STARR ([id number]), publications editor LOUIS WILLIAMSON ([id number]) on 09/30/2019 10:53:52 AM Referred By: LARA Confirmed By:STARR DUNHAM MD
[2019-09-27 08:11] LABS: Anion Gap 5 (5-15); BUN 13 mg/dL (7-18); BUN/Creat Ratio 9.4 RATIO (10-20); Calcium,Total 9.2 mg/dL (8.5-10.1); Chloride 106 mmol/L (98-107); Creatinine, Serum 1.39 mg/dL (0.70-1.30); EST Glomerular Filtration Rate 53 mL/min (>60); Est Glom Filt Rate - Afr Amer 64 mL/min (>60); Estimated Creatinine Clearance 44.27 ml/min; Glucose 124 mg/dL (74-106); Potassium 3.8 mmol/L (3.5-5.1); Sodium Level 138 mmol/L (136-145)
--- NOTE | 2019-09-27 08:38 | PCM.CONS.C ---
Problem List (1) Near syncope Status: Acute (2) Wide-complex tachycardia Status: Acute (3) Atrial flutter Status: Acute (4) Presence of cardiac defibrillator Status: Chronic (5) Cardiomyopathy Status: Chronic Qualifiers: Cardiomyopathy type: unspecified Qualified Code(s): I42.9 - Cardiomyopathy, unspecified (6) Nonrheumatic mitral (valve) prolapse Status: Chronic (7) Thoracic aortic aneurysm without rupture Status: Chronic (8) Hyperlipidemia Status: Chronic Qualifiers: Hyperlipidemia type: unspecified Qualified Code(s): E78.5 - Hyperlipidemia, unspecified (9) Hypertension Status: Chronic Qualifiers: Hypertension type: essential hypertension Qualified Code(s): I10 - Essential (primary) hypertension Reason for Consult Date of Consultation: 09/27/19 History of Present Illness: The patient is a 74 year old white male with a past cardiovascular history including the recent diagnosis of underlying atrial flutter-atypical, ventricular dysrhythmias, status post ICD placement, non-CAD related cardiomyopathy, mitral valve prolapse, ascending aortic aneurysm without rupture, hyperlipidemia, and hypertension who presents for evaluation of near syncope and subsequent findings of wide-complex tachycardia. The patient was recently evaluated by [facility] internal medicine and cardiovascular services. He was found to have what appeared to be an underlying atrial flutter-atypical. He was treated with additional rate control therapy with the addition of digitalis-hoping to assist his rate and minimize any negative effect/type of intensive effect on his already low blood pressure. He was placed on anticoagulant therapy. He underwent noninvasive evaluation with a transthoracic echocardiogram and a pharmacologic stress nuclear imaging study. The results are as noted below. He was subsequently released home for continued outpatient cardiovascular follow-up. He states he did well after being released home. However, he noted this morning, similar to the day of his admission, well getting up and getting ready he became very uncomfortable with a sensation of a hard heartbeat in his chest which radiated to his neck and jaw creating neck and jaw discomfort as well as becoming, according to his , sweaty appearing , and then subsequently nearly losing consciousness. He states he sat down on the bed, rested for a while, felt better, and then got up and started his routine again. However he had a similar type effect. Thus he was brought back to the hospital. In the emergency department he was found to have what appeared to be a wide-complex tachycardia which subsequently converted to what appeared to be his underlying atrial flutter-atypical. He states he felt better once his heart rate slowed. At rest he states he is feeling better at this time. He denies ongoing palpitations or chest/neck/jaw discomfort. He is not complaining of acute shortness of breath or dyspnea. He no longer feels as if he may lose consciousness. Of note, he states his ICD did not discharge at home during either 1 of his events that led him to the hospital. He has undergone laboratory studies. His troponin I level remains negative. His ECG demonstrates what appears to be an underlying atrial flutter-atypical with PVCs with nonspecific ST/T wave abnormality. A chest x-ray was performed which per radiology suggested emphysematous changes and no other acute changes. The patient subsequently underwent evaluation by the [email or web address] telemarketing representative with respect to his ICD. Based upon the interrogation of the single lead ICD there appeared to be concerned that the patient did have an underlying atrial flutter-atypical with episodes of narrow complex tachycardia as well as episodes of wide-complex tachycardia. His tachycardia dysrhythmias stopped short of his threshold for his ICD charging and shocking. [] Past Medical History Allergies/Adverse Reactions: Allergies No Known Allergies Allergy (Verified 09/27/19 07:09) Home Medications: Ambulatory Orders Medication Instructions Recorded simvastatin 20 mg tablet 20 mg PO QHS #90 tab 11/12/18 metoprolol tartrate 25 mg tablet 12.5 mg PO BID #90 tab 08/03/19 Amiodarone HCl 200 mg PO DAILY 09/25/19 Vit A/Vit C/Vit E/Zinc/Copper 1 ea PO BID 09/25/19 [Preservision Areds Tablet] Digoxin [Lanoxin] 250 mcg PO DAILY #30 tab 09/26/19 Potassium Chloride [K-Dur] 20 meq PO DAILY #60 tab 09/26/19 Rivaroxaban [Xarelto] 20 mg PO DAILY@1700 #30 tab 09/26/19 Past Medical History (Chronic Problems): Chronic Problems (Last Reviewed 03/26/18 @ 14:59 by Meena Pavon) SVT (supraventricular tachycardia) (Chronic) Presence of cardiac defibrillator (Chronic) Nonrheumatic mitral (valve) prolapse (Chronic) Premature ventricular contraction (Chronic) Cardiomyopathy (Chronic) Ventricular tachycardia (Chronic) Hyperlipidemia (Chronic) Hypertension (Chronic) Thoracic aortic aneurysm without rupture (Chronic) Surgical History: - - ICD Psychiatric History: No pertinent psych hx - *Family History Maternal Family History: Family History (Last Updated 01/12/19 @ 09:17 by Dinora Montoya) Father Heart disease Sister Heart disease Brother Heart disease History Items: No pertinent history Lives: Spouse/ Significant Other Smoking Status: Former smoker Alcohol: None Drugs: None Review of Systems - Review of Systems General: Denies: Fever, Night Sweats, Fatigue Cardiovascular: Reports: Palpitations, Near Syncope, - - Neck/jaw discomfort. Denies: Chest Discomfort, Shortness of Breath, Orthopnea, PND, Peripheral Edema, Lightheadedness, Dizziness, Syncope Respiratory: Denies: Cough, Sputum Production, Hemoptysis Gastrointestinal: Denies: Hematemesis, Hematochezia, Melena Genitourinary: Denies: Dysuria, Hematuria Skin: Denies: Rash Subjectve: This is a thin 74-year-old white male who appears to be resting comfortably at the moment in no acute distress. Objective: Vital Signs Temp Pulse Resp BP Pulse Ox 97 F L 96 19 H 126/79 H 96 09/27/19 07:03 09/27/19 07:27 09/27/19 07:27 09/27/19 07:27 09/27/19 07:30 Oxygen Flow Rate (L/min) 2 Oxygen Delivery Method Nasal Cannula Weight: 148 lb Body Mass Index (BMI) 18.5 General: Awake, Alert, Oriented x 3, Cooperative, No Acute Distress HEENT: Atraumatic, Normocephalic, PERRL, EOMI Oral: Moist Mucosa Neck: Supple, Good ROM, No JVD Chest Wall: Left Pectoral Incision Lungs: Clear to auscultation Cardiovascular: Irregular Rhythm, Normal S1, Normal S2 Vascular: No Carotid Bruits Abdomen: Bowel Sounds Present, Soft, Non Tender Extremities: No Cyanosis, No Clubbing, No edema Neurological: No Focal Motor or Sensory Deficit Psych/Mental Status: Flat Affect 09/27/19 07:15: WBC 7.0, RBC 5.47, Hgb 16.7 H, Hct 50.8, MCV 92.9, MCH 30.5, MCHC 32.9, Plt Count 124 L, MPV 10.7, Immature Gran % (Auto) 0.300, Neut % (Auto) 58.4, Lymph % (Auto) 27.7, [place] % (Auto) 8.7, Eos % (Auto) 3.3, Baso % (Auto) 1.6 H, Absolute Neuts (auto) 4.1, Nucleated RBC % 0 09/27/19 07:15: Sodium 138, Potassium 3.8, Chloride 106, Carbon Dioxide 27.0, Anion Gap 5, BUN 13, Creatinine 1.39 H, Est GFR (MDRD) Af Amer 64, Est GFR (MDRD) Non-Af 53 L, BUN/Creatinine Ratio 9.4 L, Glucose 124 H, Calcium 9.2, Troponin I < 0.015 Rhythm: As noted above EKG: As noted above ECHO: Interpretation Summary The study was technically difficult. Mild global left ventricular systolic dysfunction. The estimated ejection fraction is 40 %. The right atrium is mildly enlarged. Mild mitral valve prolapse. Mild diffuse mitral valve thickening. Trivial mitral valve insufficiency. Trivial tricuspid valve insufficiency. Mild diffuse aortic valve thickening. Trivial pulmonic valve insufficiency. Mild to moderately dilated aortic root. Right ventricular systolic pressure estimated to be 17 mmHg. Unable to assess diastolic dysfunction. ICD or pacer leads identified within the right atrium ICD or pacer leads identified within the right ventricle. Stress Test: Stress Test Report Date: 09-25-19 Procedure: Pharmacologic stress nuclear imaging study Indications: Chest pain; non-CAD related cardiomyopathy; ICD Consent: Per the patient Procedure: The patient underwent pharmacologic (Regadenoson) evaluation with a peak heart rate of 133 beats per minute (91 %predicted maximal heart rate) and a peak blood pressure of 120/80 mmHg. The baseline ECG demonstrated atrial flutter; nonspecific ST/T wave abnormality. The peak pharmacologic ECG demonstrated no obvious ECG changes. There was a rare PVC pretest, during infusion, and recovery. There was no complaint of chest discomfort during pharmacologic infusion or recovery. The examination was discontinued secondary to completion of protocol. Impression: 1. Pharmacologic (Regadenoson) evaluation 2. Peak pharmacologic ECG with continued nonspecific ST/T wave abnormality. 3. There was a rare PVC pretest, during infusion, and recovery. 4. Nuclear images pending Myocardial perfusion imaging study: Technique: The patient was injected with 10.0 millicuries of technetium 99m Cardiolite and subsequently rest SPECT Cardiolite nuclear imaging was obtained in the horizontal long, vertical long, and short axis views. The patient underwent pharmacologic (Regadenoson) evaluation with a peak heart rate of 133 beats per minute (91 % percent predicted maximal heart rate) and a peak blood pressure of 120/80 mmHg. The patient was injected with 30.0 millicuries of technetium 99m Cardiolite and subsequently stress SPECT Cardiolite nuclear imaging was obtained in the horizontal long, vertical long, and short axis views. A gated Cardiolite study at peak stress was obtained. Interpretation: Rest and stress SPECT Cardiolite nuclear imaging status post realignment, normalization, and attenuation correction demonstrates relative uniform tracer uptake and myocardial perfusion appearing within normal limits. The gated Cardiolite study demonstrates myocardial thickening and inward wall motion. The reported LVEF is 42 %. Impression: 1. Rest and stress SPECT Cardiolite nuclear imaging demonstrate relative uniform tracer uptake and myocardial perfusion appearing within normal limits. 2. The gated Cardiolite study reports an LVEF of 42 %. Cardiac Cath: 3??2010: [facility]: Left ventricle: Estimated LVEF approximately 40%; coronary arteries considered to be angiographically normal Assessment/Plan 1. Near syncope The patient had an episode of near syncope. Based upon the patient's past experience and this experience, which happened to capture his underlying rhythm demonstrating what appeared to be a wide-complex tachycardia, there would be concerned that the patient's near syncope was related to his tachydysrhythmia. His ICD interrogation is as noted above. Thus there are concerns that his tachycardia dysrhythmias have contributed to his symptoms and do require further evaluation and care. 2. Wide-complex tachycardia The patient presented with a wide-complex tachycardia. The differential may be related to his underlying atrial dysrhythmia versus his history of ventricular dysrhythmia/ventricular tachycardia. Based upon his device interrogation he has had both narrow and wide complex tachycardia dysrhythmias. Both have stopped short of his device charging and shocking. 3. Atrial flutter The patient was recently diagnosed with what appeared to be an underlying atrial flutter-atypical. The patient underwent noninvasive evaluation to reassess his left ventricular wall motion and function as well as his coronary physiology. The results are as noted above. The patient was continued on rate control therapy which included the addition of digitalis and attempt to assist with rate control and minimize further lowering of his blood pressure with other agents such as advancement of his beta-blockers, addition of calcium channel antagonist, etc. He continued on his antiarrhythmic therapy with amiodarone. He was placed on anticoagulant therapy as well with rivaroxaban/Xarelto. He was to be followed up as an outpatient to reassess his ICD for additional information. He was being considered for a future attempt at synchronized biphasic DC cardioversion once he was appropriately anticoagulated. He was also told that he may need further evaluation by electrophysiology depending upon his clinical course based upon his atrial dysrhythmia occurring while he was already on rate control therapy and antiarrhythmic therapy, etc. His ICD interrogation has demonstrated his underlying atrial dysrhythmia and episodes of both narrow and wide complex tachycardia dysrhythmias. This is despite being on medical therapy with rate control and antiarrhythmic therapy. 4. ICD He does have an ICD. He states his ICD did not discharge. He was to be evaluated as an outpatient and attempt to gain additional information from his ICD regarding his underlying cardiac dysrhythmias. However this is now being accomplished while he is in the emergency department via the [employer] telemarketing representative. As noted above, per the [employer] telemarketing representative, he has had the appearance of an underlying atrial flutter-atypical with both narrow and wide complex tachycardia dysrhythmias. 5. Non-CAD related cardiomyopathy He has a history of a non-CAD related cardiomyopathy. He has recently been reassessed with cardiac enzymes as well as his echocardiogram and pharmacologic stress nuclear imaging study. He did not have findings that were considered to warrant reevaluation in the cardiac catheterization laboratory. Thus he was going to continue medical management as best as tolerated. 6. Mitral valve prolapse He does have a history of mitral valve prolapse. He was to continue medical therapy with his beta-blockers. 7. Ascending thoracic aortic aneurysm This was reassessed with his transthoracic echocardiogram. It was thought to be mild to moderately dilated. The tentative plan was for continued noninvasive follow-up. 8. Hyperlipidemia He would continue medical management as deemed appropriate. 9. Hypertension He does have a history of hypertension. However based upon his overall condition his medications his blood pressures have tended to run lower. This has made it somewhat challenging to advance medications for him. Comment: The patient's case was discussed and reviewed with the patient, his spouse, his niece via telephone, and the [facility] emergency department staff. The recommendation, based upon the patient's complex cardiovascular history and findings, was for the patient be transferred to a tertiary care center where he can be evaluated by electrophysiology for consideration for not only medical management but for invasive evaluation with EPS and possible ablative procedures of either his atrial dysrhythmia or his AV node as well as potentially upgrade of his ICD device to a biventricular [employer] device. The patient's case was discussed with Dr. Jaime of electrophysiology at [facility]. He agreed to accept the patient in transfer for further evaluation and care. He will contact the [facility] transfer or lindsey to initiate the transfer. This note was generated using a voice recognition system and there may be incorrect words, spelling or punctuation that were not noted when reviewing the office note prior to saving.
[2019-09-27 08:53] LABS: Digoxin Level 1.35 ng/mL (0.80-2.00)
--- NOTE | 2019-09-27 10:31 | ED.RN ---
[employer] REP TO ED TO ASSIST IN INTERROGATING PACER AND SPOKE TO CHARLA
--- NOTE | 2019-09-27 13:47 | NURSING ---
[facility]THOD[facility]Y [facility]ATI CALLED FOR TRANSPORT TO [facility]. S[facility] COMING FROM [place] AND SHOULD BE HERE WITH IN 30 MINUTES.
== END 2019-09-27 14:10 | disposition short-term general hospital (02) ==
PROVIDERS: Internal Medicine Cardiovascular Disease; Emergency Provider Emergency Medicine; Family Provider Family Medicine; PCP Family Medicine
DX: I48.92 Unspecified atrial flutter (principal); I42.9 Cardiomyopathy, unspecified; Z95.810 Presence of automatic (implantable) cardiac defibrillator; E78.5 Hyperlipidemia, unspecified; I10 Essential (primary) hypertension; I34.1 Nonrheumatic mitral (valve) prolapse; I49.3 Ventricular premature depolarization; I71.2 Thoracic aortic aneurysm, without rupture; J43.9 Emphysema, unspecified; I48.91 Unspecified atrial fibrillation; Z79.01 Long term (current) use of anticoagulants; Z82.49 Family history of ischemic heart disease and other diseases of the circulatory system; Z87.891 Personal history of nicotine dependence
CPT/HCPCS: 71045; 80048; 80162; 84484; 85025; 93005; 99285; A4216

== ENCOUNTER → 2020-06-30 08:40 | Outpatient (CLI) | payer MEDICARE, OTHER, SELFPAY ==
[2019-09-27 07:03] VITALS: BMI 18.5
[2020-06-30 10:04] LABS: Digoxin Level 0.08 ng/mL (0.80-2.00)
[2020-06-30 10:27] LABS: Anion Gap 2 (5-15); BUN 15 mg/dL (7-18); BUN/Creat Ratio 12.5 RATIO (10-20); Calcium,Total 8.7 mg/dL (8.5-10.1); Chloride 109 mmol/L (98-107); EST Glomerular Filtration Rate 63 mL/min (>60); Est Glom Filt Rate - Afr Amer 76 mL/min (>60); Glucose 82 mg/dL (74-106); Sodium Level 141 mmol/L (136-145)
[2020-06-30 11:29] LABS: AST(SGOT) 15 U/L (15-37); Alanine Aminotransfer ALT/SGPT 25 U/L (16-61); Albumin, Serum 3.6 g/dL (3.2-5.0); Alkaline Phosphatase 84 U/L (45-117); Cholesterol 143 mg/dL (200); Globulin 4.1 g/dL (2.2-4.2); High Density Lipoprotein 57 mg/dL; Protein, Total 7.7 g/dL (6.4-8.2); Triglycerides 82 mg/dL; Very Low Density Lipoprotein 16 mg/dL (5-40)
== END ==
PROVIDERS: Internal Medicine Cardiovascular Disease; PCP Family Medicine; Referring Provider Nurse Practitioner Family; Visit Provider Nurse Practitioner Family
DX: E78.5 Hyperlipidemia, unspecified (principal); I48.92 Unspecified atrial flutter; I47.2 Ventricular tachycardia; Z79.899 Other long term (current) drug therapy
CPT/HCPCS: 36415; 80048; 80061; 80076; 80162

== ENCOUNTER → 2020-08-09 11:36 | Outpatient (CLI) | payer MEDICARE, OTHER, SELFPAY ==
[2020-07-15 08:28] VITALS: BMI 18.5
[2020-08-09 12:55] LABS: Hematocrit 45.4 % (40-54); Hemoglobin 14.3 g/dL (13.0-16.5); Mean Corp Hgb Conc 31.5 g/dL (32-36); Mean Corpuscular Hgb 30.9 pg (27.0-32.0); Mean Corpuscular Volume 98.1 fL (80-94); Mean Platelet Vol. 11.3 fl (6.2-12.0); POSITIVE COUNT YES; RBC Distribution Width CV 13.2 % (11.6-14.6); RBC Distribution Width SD 47.8 fl (35.1-43.9); Red Blood Count 4.63 M/mm3 (4.6-6.2); White Blood Count 5.6 K/mm3 (4.4-11.0)
[2020-08-09 13:13] LABS: Anion Gap 5 (5-15); BUN 14 mg/dL (7-18); BUN/Creat Ratio 11.5 RATIO (10-20); Calcium,Total 8.9 mg/dL (8.5-10.1); Chloride 106 mmol/L (98-107); Creatinine, Serum 1.22 mg/dL (0.70-1.30); EST Glomerular Filtration Rate 62 mL/min (>60); Est Glom Filt Rate - Afr Amer 75 mL/min (>60); Glucose 83 mg/dL (74-106); Potassium 4.4 mmol/L (3.5-5.1); Sodium Level 138 mmol/L (136-145)
[2020-08-09 13:35] LABS: Platelet Count 98 K/mm3 (150-450)
== END ==
PROVIDERS: PCP Family Medicine; Referring Provider Urology; Visit Provider Urology
DX: Z01.812 Encounter for preprocedural laboratory examination (principal); I51.9 Heart disease, unspecified; I48.91 Unspecified atrial fibrillation
CPT/HCPCS: 36415; 80048; 85027

== ENCOUNTER → 2020-08-19 10:10 | Outpatient (CLI) | payer MEDICARE, OTHER, SELFPAY ==
[2020-07-15 08:28] VITALS: BMI 18.5
== END ==
PROVIDERS: PCP Family Medicine; Referring Provider Urology; Visit Provider Urology
DX: Z11.59 Encounter for screening for other viral diseases (principal)
CPT/HCPCS: 87635; C9803; U0003

== ENCOUNTER → 2020-09-13 | Outpatient (CLI) | payer MEDICARE, OTHER, SELFPAY ==
[2020-07-15 08:28] VITALS: BMI 18.5
[2020-09-13 11:30] LABS: Red Blood Cells-Urine 0 SEEN /hpf (0-5); Squamous Epithelial Cells - UA 0 SEEN /hpf (0-5)
[2020-09-13 11:37] LABS: Color, Urine Yellow (Yellow); Glucose, Dipstick Normal (Normal); Ketone-Dipstick 5 mg/dl (Negative); Leukocyte Esterase-Dipstick 100 /ul (Negative); Nitrite-Dipstick Negative (Negative); Occult Blood-Urine 25 /ul (Negative); Protein-Dipstick 30 mg/dl (Negative); Specific Gravity, Urine 1.015 (1.002-1.030); Urine Bilirubin Dipstick Negative (Negative); Urine Clarity Clear (Clear); Urine Urobilinogen Normal (Normal)
[2020-09-13 11:45] LABS: Bacteria RARE /hpf (None Seen); Calcium Oxalate Crystals Ur 2+ /hpf (<or=2+); Hyaline Cast 10-25 SEEN /lpf (0-5); Mucous, Urine 1+ /hpf (<or=2+); White Blood Cells 0-5 SEEN /hpf (0-5)
== END | disposition home or self-care (01) ==
LOC: LABSPEC 11:14
PROVIDERS: PCP Family Medicine; Visit Provider Nurse Practitioner Adult Health
DX: R31.29 Other microscopic hematuria (principal)
CPT/HCPCS: 81001

== ENCOUNTER → 2020-09-19 12:42 | Outpatient (CLI) | payer MEDICARE, OTHER, SELFPAY ==
[2020-07-15 08:28] VITALS: BMI 18.5
--- NOTE | 2020-09-19 12:46 | CT_ITS ---
STUDY: CT ABDOMEN AND PELVIS WITH CONTRAST REASON FOR EXAM: Male, 75 years old. 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 IV 100mL Isovue-300 was administered. Sagittal and coronal images were reconstructed. Individualized dose optimization techniques were used for this CT. COMPARISON: Comparison is made with prior examination dated 04/08/2019. FINDINGS: Stable minimal scarring at the lung bases slightly more prominent on the right side. A dual-chamber pacemaker is seen. Normal liver. Normal gallbladder and extrahepatic biliary system. Normal spleen. Normal pancreas. Normal bilateral adrenal glands. The patient is status post partial nephrectomy of the right kidney with removal of the previously seen exophytic enhancing mass. Small cortical defect and scar is seen along the lateral margin of the right kidney in the midpole most likely postsurgical in nature. Normal left kidney. Normal visualized stomach. Normal small intestine. Large amount of fecal material is seen throughout the colon. Sigmoid diverticulosis. The appendix is visualized and appears normal. There is diffuse atherosclerotic calcification of the abdominal aorta, without a demonstrated aneurysm. Normal inferior vena cava. Normal retroperitoneum. Normal urinary bladder. There is enlargement of the prostate gland. It measures 4.85 x 3.2 cm. There is diffuse enlargement of the seminal vesicles bilaterally. Normal abdominal wall. There are diffuse degenerative changes of the visualized lumbar spine. CT/Abdomen/Pelvis WITH Contrast IMPRESSION: Stable examination. Status post partial right nephrectomy. Enlargement of the prostate as well as the seminal vesicles bilaterally. Electronically Signed: Manuelito Marte, at 15:34 EDT , Service support ,
--- NOTE | 2020-09-19 12:46 | RAD_ITS ---
STUDY: X-RAY CHEST REASON FOR EXAM: Male, 75 years old. Malignant neoplasm of R kidney -- follow up, no chest complaints TECHNIQUE: Frontal and lateral views COMPARISON: 09/27/2019. FINDINGS: A left-sided pacemaker is again noted. The lungs are hyperaerated. Mild apical pleural thickening bilaterally. Normal size heart. Normal mediastinum and araceli. Normal visualized pulmonary arteries. Calcified aortic arch and descending thoracic aorta. Degenerative changes of the thoracic spine. Normal visualized ribs, clavicles, and shoulders. There is no demonstrated abnormality of the visualized soft tissue structures of the upper abdomen. RAD/Chest PA and Lateral IMPRESSION: Hyperaeration. Electronically Signed: Manuel Smith DO at 23:55 EDT Tel [phone], Service support ,
[2020-09-19 13:16] LABS: CREATININE FINGERSTICK 0.7 mg/dL (0.70-1.30)
== END ==
PROVIDERS: PCP Family Medicine; Referring Provider Nurse Practitioner Adult Health; Visit Provider Nurse Practitioner Adult Health
DX: C64.1 Malignant neoplasm of right kidney, except renal pelvis (principal); Z90.5 Acquired absence of kidney
CPT/HCPCS: 71046; 74177; Q9967

== ENCOUNTER → 2020-11-07 12:19 | Outpatient (CLI) | payer MEDICARE, OTHER, SELFPAY ==
[2020-07-15 08:28] VITALS: BMI 18.5
--- NOTE | 2020-11-07 12:34 | RAD_ITS ---
HISTORY: Degenerative disc disease with the L4-L5 level persists. Some sacroiliac joint arthritis is also present. Some hip arthritis is present. Pelvic phleboliths remain. Degenerative disc disease at many levels with enthesophytes greater on the left than right are present. Cardiac pacer/defibrillator remains. Bowel gas pattern is normal. No organomegaly. No pneumatosis. No free air. RAD/Abdomen Single View IMPRESSION: No acute abdominal process perceived. at [id number] Reported and signed by: Júnior King MD Electronically Signed: Júnior King MD at 3:04 EST Tel , Service support ,
[2020-11-07 17:27] LABS: Absolute Lymphocyte Count 0.76 X10^3/uL (0.83-4.51); Absolute Neutrophil Count 1.9 X10^3/uL (2.0-7.7); Basophil# 0.02 X10^3/uL; Basophil% 0.6 % (0-1); Eosinophil# 0.01 X10^3/uL; Eosinophils% 0.3 % (0-5); Hematocrit 43.7 % (40-54); Hemoglobin 13.7 g/dL (13.0-16.5); Lymphocyte # 0.76 X10^3/ul (4.0); Lymphocyte % 23.2 % (19-41); Mean Corp Hgb Conc 31.4 g/dL (32-36); Mean Corpuscular Hgb 30.4 pg (27.0-32.0); Mean Corpuscular Volume 97.1 fL (80-94); Mean Platelet Vol. 12.3 fl (6.2-12.0); Monocyte# 0.53 X10^3/uL; Monocyte% 16.2 % (0-10); NRBC Flagged by Analyzer 0 % (0-5); Neutrophil # 1.94 X10^3/uL (2.7-7.7); Neutrophil % 59.4 % (47-70); POSITIVE COUNT YES; Platelet Count 84 K/mm3 (150-450); RBC Distribution Width CV 13.6 % (11.6-14.6); RBC Distribution Width SD 48.9 fl (35.1-43.9); White Blood Count 3.3 K/mm3 (4.4-11.0)
[2020-11-07 17:40] LABS: Differential Indicated SCAN CRITERIA MET
[2020-11-07 17:53] LABS: ALB/GLOB Ratio 0.9 RATIO (0.9-2.4); AST(SGOT) 21 U/L (15-37); Alanine Aminotransfer ALT/SGPT 23 U/L (16-61); Albumin, Serum 3.8 g/dL (3.2-5.0); Alkaline Phosphatase 79 U/L (45-117); Anion Gap 6 (5-15); BUN 17 mg/dL (7-18); BUN/Creat Ratio 12.8 RATIO (10-20); Calcium,Total 8.6 mg/dL (8.5-10.1); Chloride 101 mmol/L (98-107); Creatinine, Serum 1.33 mg/dL (0.70-1.30); EST Glomerular Filtration Rate 56 mL/min (>60); Est Glom Filt Rate - Afr Amer 67 mL/min (>60); Globulin 4.2 g/dL (2.2-4.2); Glucose 80 mg/dL (74-106); Potassium 3.6 mmol/L (3.5-5.1); Sodium Level 136 mmol/L (136-145); Thyroid Stim Hormone (TSH) 1.58 uIU/mL (0.358-3.74)
[2020-11-07 17:59] LABS: Differential Comment SCANNED
[2020-11-07 18:27] LABS: Hepatitis C Antibody Non-Reactive (Nonreactive); Vitamin D,25 Hydroxy 15.1 ng/mL
== END ==
PROVIDERS: Visit Provider Family Medicine Geriatric Medicine
DX: E55.9 Vitamin D deficiency, unspecified (principal); Z13.89 Encounter for screening for other disorder; R53.83 Other fatigue; R10.9 Unspecified abdominal pain
CPT/HCPCS: 36415; 74018; 80053; 82306; 84443; 85025; 86803

== ENCOUNTER → 2020-11-11 07:24 | Outpatient (CLI) | payer MEDICARE, OTHER, SELFPAY ==
[2020-07-15 08:28] VITALS: BMI 18.5
--- NOTE | 2020-11-11 07:28 | CT_ITS ---
STUDY: LOW DOSE CT LUNG CANCER SCREENING REASON FOR EXAM: Male, 75 years old. LUNG CANCER SCREENING. 3/4 PPD X 50 YEARS. QUIT NOW. COPD RADIATION DOSAGE (If Supplied By Facility): CTDIvol = ( 3.02 ) mGy, DLP = ( 120.03 ) mGycm TECHNIQUE: No contrast was administered. Low dose technique was utilized (average mAS-38 and kVp 120). 1.25 mm axial source images with a slice interval of 1.25-mm were reconstructed in lung windows. 2.5 mm axial source images with a slice interval of 2.5-mm were reconstructed in lung windows. 5.0 mm axial source images with a slice interval of 5.0-mm were reconstructed in soft tissue windows. Nodule measured using lung windows on PACS and/or independent workstation with automated measurement of minimum and maximum diameter. Nodule measurement reported as average diameter rounded to the nearest whole number. Growth is defined as an increase ins size of greater than 1.5 mm. COMPARISON: None. NODULES: No suspicious nodules are seen. A dual-chamber pacemaker is seen. Emphysema: Hyperinflation. Findings suggestive of scarring at the lung apices. Small bullous changes are seen predominantly in the upper lobes. Focal area of the scarring and bronchiectasis with low small cystic changes in the anterior aspect of the right lower lobe as seen on axial image #218. Similar appearance in the peripheral aspects of both lower lobes. Endobronchial lesion: Aorta: Atherosclerotic calcification of the aortic arch and proximal descending thoracic aorta. Coronary arteries: No significant calcification is seen. Heart: Unremarkable. Mediastinal nodes: Small benign-appearing mediastinal lymph nodes. Other chest and abdominal findings: Degenerative changes of the thoracic spine. CT/Low Dose CT Lung Screening IMPRESSION: Lung-RADS category 2 - Continue annual screening with LDCT in 12 months. IMPORTANT NOTES FOR USE: ACR Lung-RADS Version 1.0 Assessment Categories Release Date: March 22, 2014 Category: Coded 0-4 bases on nodule(s) with highest degree of suspicion. Negative screen is defined as categories 1 and 2; a positive screen is defined as categories 3 and 4. Category 3 and 4A nodules that are unchanged on interval CT should be coded as category 2, and individuals returned to screening in 12 months. Category 4X: Category 3 or 4 nodules with additional imaging findings that increase the suspicion of lung cancer, such as spiculation, GGN that doubles in size in 1 year, enlarged lymph notes, etc. Category Modifiers: S (significant finding unrelated to lung cancer) and C (prior history of treated lung cancer) may be added to the 0-4 Lung-RADS Electronically Signed: Manuelito Marte, at 8:44 EST , Service support ,
--- NOTE | 2020-11-11 07:29 | AAVD_ITS ---
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 in cross- Peak systolic flow velocities within the proximal sectional axis. aorta measure 74.8 cm/sec. Proximal aorta measures2.01cm. in longitudinal Peak systolic flow velocities within the mid aorta axis. measure 67.4 cm/sec. Mid aorta measures1.72 x 1.76cm. in cross- Peak systolic flow velocities within the distal sectional axis. aorta measure 65 cm/sec. Mid aorta measures1.81cm. in longitudinal axis. Distal aorta measures1.99 x 1.98cm. in cross- sectional axis. Distal aorta measures2.01cm. in longitudinal axis. Left Iliac Artery Left iliac artery measures 0.85 x 0.95 cm. in the cross-sectional axis. Left iliac artery measures 0.88 cm. in the longitudinal axis. Peak systolic velocity in the left iliac artery measures 88.2 cm/sec. Right Iliac Artery Right iliac artery measures 1.04 x 1.00 cm. in the cross-sectional axis. Right iliac artery measures 1.04 cm. in the longitudinal axis. Peak systolic velocity in the right iliac artery measures 101.3 cm/sec. Procedure Aorta IVC Iliac vasculature or bypass grafts [id number]. Exam performed in department. Interpretation Summary The dimensions of the intra-abdominal aorta are normal, without evidence of aneurysmal dilatation. The iliac arteries are also normal in size bilaterally. The intra-abdominal aorta and iliac arteries appear patent, demonstrating normal, pulsatile arterial flow and normal peak systolic velocities. Ordering Physician: Sree Ash Referring Physician: Sree Ash Chi Performed By: Kate Newell RVT and Student
[2020-11-11 07:40] VITALS: BP 106/61; BP 130/71; BP 97/57; PULSE 73; PULSE 75; PULSE 77
--- NOTE | 2020-11-11 07:53 | NURSING ---
Pt arrived early for vascular study, so he was able to get his Low Dose Lung CT done early. CT techs noticed pt extremely shaky, unsteady on feet, requested that nurse take patient's vital signs. CHANA Palacios took orthostatic VS. Laying down: BP- 130/71 HR- 73bpm SPO2-100%RA Resp: 16 Sitting: BP- 106/61 HR-75bpm SPO2: 99%RA Resp: 16 Standing: BP- 97/57 HR- 77bpm SPO2- 98% Resp- 16 Pt reports having 2 syncopal episodes this morning. CHANA Palacios asks if pt has been eating and drinking well to which pt responds he has not. Pt advised to go to ED for evaluation, pt is agreeable, but would like to have vascular study completed first. Nurse to nurse report given by CHANA Palacios to CHANA Vicente in cardiovascular and CHANA Milligan in ED. Pt assisted via wheelchair to cardiovascular by certified ophthalmic technologist.
== END ==
PROVIDERS: PCP Family Medicine Geriatric Medicine; Referring Provider Family Medicine Geriatric Medicine; Visit Provider Family Medicine Geriatric Medicine
DX: I71.4 Abdominal aortic aneurysm, without rupture (principal); F17.210 Nicotine dependence, cigarettes, uncomplicated
CPT/HCPCS: 93978; G0297

== ENCOUNTER 2020-11-11 08:19 | Emergency (ER) | payer MEDICARE, OTHER, SELFPAY ==
[2020-07-15 08:28] VITALS: BMI 18.5
[2020-11-11 08:21] VITALS: BP 95/53; PULSE 71; RESP 17; TEMP 36.6; O2SAT 98; BMI 18.7
--- NOTE | 2020-11-11 09:29 | EKG12_ITS ---
Test Reason : SYNCOPE Blood Pressure : / mmHG Vent. Rate : 070 BPM Atrial Rate : 070 BPM P-R Int : 164 ms QRS Dur : 162 ms QT Int : 504 ms P-R-T Axes : 000 234 090 degrees QTc Int : 544 ms AV dual-paced rhythm Biventricular pacemaker detected Abnormal ECG Confirmed by ARTI GRAVES, SIMONE ([id number]), assignment desk editor LOUIS WILLIAMSON ([id number]) on 11/16/2020 9:56:00 A M Referred By: COURT Confirmed By:KIP CHI MD
--- NOTE | 2020-11-11 09:38 | ED.DCSUM_ITS ---
History of Present Illness Informant: Patient Onset: Today Context: Sudden Onset Timing: Intermittent Quality: syncope Current Severity: Mild Maximum Severity: Severe Worsened by: standing Relieved by: supine Associated Symptoms: lightheadedness Narrative: 75-year-old male presents after syncopal episode. He was at home shaving. He states that he felt lightheaded and passed out he does not feel he was out for more than a minute was on the ground and he denies any injuries. He did come to get outpatient testing and when he told the staff he had a syncopal episode after his testing was completed they brought him down to the emergency department. Rest of his review of systems are negative Prior similar symptoms: Yes Recent Illness/Hospitalization: No <Wan Sidhu - Last Filed: 11/11/20 11:10> <Efrain Giron - Last Filed: 11/11/20 15:25> Chief Complaint: Syncope Past Medical History Prior records reviewed: Yes Past Medical History: - - Hypertension hyperlipidemia Surgical History: - - ICD Smoking Status: Former smoker - Family History Maternal Family History: Family History (Last Updated 01/12/19 @ 09:17 by Dinora Montoya) Father Heart disease Sister Heart disease Brother Heart disease Family History: Reports: No pertinent history <Wan Sidhu - Last Filed: 11/11/20 11:10> - Family History Maternal Family History: Family History (Last Updated 01/12/19 @ 09:17 by Dinora Montoya) Father Heart disease Sister Heart disease Brother Heart disease <Efrain Giron - Last Filed: 11/11/20 15:25> - Allergies and Home Meds Allergies/Adverse Reactions: Allergies No Known Allergies Allergy (Verified 11/11/20 08:20) Primary Care Physician: Sree Ash Chi, MD [Primary Care Provider] - Review of Systems All systems negative except as indicated General: Denies: Chills, Fever, Sweats Eyes: Denies: Visual changes - bilaterally, Diplopia ENT: Denies: Rhinorrhea, Sore throat Cardiovascular: Denies: Chest pain, Palpitations, Heart racing Respiratory: Denies: Dyspnea, Cough, Dyspnea on exertion Gastrointestinal: Denies: Abdominal pain, Nausea, Vomiting, Diarrhea, Melena, Hematochezia Genitourinary: Denies: Dysuria, Hematuria, Frequency Musculoskeletal: Denies: Back pain, Extremity Pain Skin: Denies: Rash, Wounds Neurological: Denies: Headache, Weakness, Numbness <Wan Sidhu - Last Filed: 11/11/20 11:10> Physical Exam Vital Signs/Narrative: Vital Signs Temp Pulse Resp BP Pulse Ox 11/11/20 08:21 98 F 71 17 95/53 L 98 Inital Vital Signs reviewed: Yes General: Well nourished, Well developed, No Acute Distress Head: Normocephalic, Atraumatic. Negative for: Trauma, Tenderness Eyes: Perrl, EOMI ENT: Moist mucous membranes, No rhinorrhea Neck: Supple, Nontender Cardiovascular: Regular rate, Regular rhythm, No murmurs Respiratory: No distress, CTA bilaterally, Chest nontender Abdomen: Soft, Nontender, Nondistended, Normal bowel sounds Back: Nontender, Normal Inspection. Negative for: CVA tenderness Extremities: Nontender, No edema Skin: Normal color, No rash Neurological: Alert, Oriented x3, Cranial nerves II-XII grossly intact, Normal Strength, Normal Sensation, Normal Gait Psychological: Normal affect, Normal Mood <Wan Sidhu - Last Filed: 11/11/20 11:10> Vital Signs/Narrative: Vital Signs Pulse Resp BP Pulse Ox 11/11/20 11:29 68 15 143/70 H 96 <Efrain Giron - Last Filed: 11/11/20 15:25> Diagnostic/Tx/Re-eval Chest X-Ray - ED: 1 View, - - Patient had an outpatient CT scan of his chest prior to arrival to the emergency department this was reviewed and showed no acute findings Laboratory Results 11/11/20 11/11/20 08:45 08:45 WBC 2.6 L RBC 4.37 L Hgb 13.5 Hct 40.6 MCV 92.9 MCH 30.9 MCHC 33.3 D RDW Std Deviation 43.3 RDW Coeff of Mary 12.6 Plt Count 67 L MPV 11.7 Immature Gran % (Auto) 0.400 Neut % (Auto) 72.2 H Lymph % (Auto) 13.7 L [place] % (Auto) 13.3 H Eos % (Auto) 0.0 Baso % (Auto) 0.4 Absolute Neuts (auto) 1.9 L Absolute Lymphs (auto) 0.35 L Nucleated RBC % 0 Differential Comment COMMENT Diff Path Review May foll Platelet Estimate MOD DEC Sodium 136 Potassium 3.6 Chloride 102 Carbon Dioxide 29.0 Anion Gap 5 BUN 13 Creatinine 1.14 Estim Creat Clear Calc 53.88 Est GFR (MDRD) Af Amer 81 Est GFR (MDRD) Non-Af 67 BUN/Creatinine Ratio 11.4 Glucose 96 Calcium 8.4 L Total Bilirubin 0.60 AST 21 ALT 18 Alkaline Phosphatase 70 Troponin I 0.024 Total Protein 7.6 Albumin 3.5 Globulin 4.1 Albumin/Globulin Ratio 0.9 - Rhythm Strip Rhythm Strip: Sinus Rhythm Rate: 70 Ectopy: None - EKG Initial EKG Interpretation: No Acute Injury Pattern, Paced Prior: Unchanged - Medical Decision Making On arrival patient had positive orthostatic vital signs and was given IV fluids. His EKG was a paced rhythm rate of 70 bpm. Unchanged from his previous. Laboratory work-up was unremarkable. Reviewed the patient's outpatient CT scan of his chest, chronic scarring of lungs were noted but there is no acute abnormality noted. Repeat exam patient's blood pressure was 134/88. Patient is ambulatory on his own without any lightheadedness or dizziness and he feels well and improved. Patient has been admitted previously for work-up for syncope and at this time we do not feel he requires admission this is likely from dehydration. He will be discharged home and was advised to follow-up closely with his primary care physician. He was advised to return to the emergency department for worsening symptoms which were discussed. <Wan Sidhu - Last Filed: 11/11/20 11:10> - Medical Decision Making Patient was seen with me. I did a [id number] examination with the patient. Patient presents with a syncopal episode that occurred this morning. Patient states he was shaving to get ready to come to the hospital for a CT scan of his chest and abdomen. Patient states she gets this routinely to follow an aneurysm. Patient states that while he was shaving he passed out. Patient denies any palpitations. Patient denies any shortness of breath. Patient denies any chest pain. Patient states that while he was getting his CT scans he mentioned this to one of the technicians and the patient was then referred to the emergency department. Vital signs are stable. Patient is afebrile. Patient is in no acute distress. Oral mucosa is pink and moist. Neck is supple. Trachea is midline. There is no JVD or lymphadenopathy noted. Heart was regular rate and rhythm. Lungs are clear and equal bilaterally. Abdomen is soft. Cranial nerves II through XII are intact. There are no focal motor or sensory deficits noted. Orthostatic vital signs were obtained and was positive. Patient was given IV fluids. EKG shows a paced rhythm with a rate of 70. There is a left bundle branch block pattern. There are no acute ST or T wave changes. This was unchanged from previous EKG. Patient was advised of his findings. Patient was instructed to follow-up with his primary care physician in 5 to 7 days. Patient understands and is agreeable with the plan. All questions were answered. <Efrain Giron - Last Filed: 11/11/20 15:25> ED Disposition <Wan Sidhu - Last Filed: 11/11/20 11:10> <Efrain Giron - Last Filed: 11/11/20 15:25> - Plan for ED Patient: Disposition: Home or Assisted Living Diagnosis: Syncope due to orthostatic hypotension, Presence of cardiac defibrillator Instructions: ED Hypotension, Orthostatic Referrals: Sree Ash Chi, MD [Primary Care Provider] -
[2020-11-11 09:43] LABS: Absolute Lymphocyte Count 0.35 X10^3/uL (0.83-4.51); Absolute Neutrophil Count 1.9 X10^3/uL (2.0-7.7); Basophil# 0.01 X10^3/uL; Basophil% 0.4 % (0-1); Hematocrit 40.6 % (40-54); Hemoglobin 13.5 g/dL (13.0-16.5); Lymphocyte # 0.35 X10^3/ul (4.0); Lymphocyte % 13.7 % (19-41); Mean Corp Hgb Conc 33.3 g/dL (32-36); Mean Corpuscular Hgb 30.9 pg (27.0-32.0); Mean Corpuscular Volume 92.9 fL (80-94); Mean Platelet Vol. 11.7 fl (6.2-12.0); Monocyte# 0.34 X10^3/uL; Monocyte% 13.3 % (0-10); NRBC Flagged by Analyzer 0 % (0-5); Neutrophil # 1.85 X10^3/uL (2.7-7.7); Neutrophil % 72.2 % (47-70); POSITIVE COUNT YES; POSITIVE DIFFERENTIAL YES; Platelet Count 67 K/mm3 (150-450); RBC Distribution Width CV 12.6 % (11.6-14.6); RBC Distribution Width SD 43.3 fl (35.1-43.9); Red Blood Count 4.37 M/mm3 (4.6-6.2); White Blood Count 2.6 K/mm3 (4.4-11.0)
[2020-11-11 09:57] LABS: Differential Indicated SCAN CRITERIA MET
[2020-11-11 09:58] LABS: ALB/GLOB Ratio 0.9 RATIO (0.9-2.4); AST(SGOT) 21 U/L (15-37); Alanine Aminotransfer ALT/SGPT 18 U/L (16-61); Albumin, Serum 3.5 g/dL (3.2-5.0); Alkaline Phosphatase 70 U/L (45-117); Anion Gap 5 (5-15); BUN 13 mg/dL (7-18); BUN/Creat Ratio 11.4 RATIO (10-20); Calcium,Total 8.4 mg/dL (8.5-10.1); Chloride 102 mmol/L (98-107); Creatinine, Serum 1.14 mg/dL (0.70-1.30); EST Glomerular Filtration Rate 67 mL/min (>60); Est Glom Filt Rate - Afr Amer 81 mL/min (>60); Estimated Creatinine Clearance 53.88 ml/min; Globulin 4.1 g/dL (2.2-4.2); Glucose 96 mg/dL (74-106); Potassium 3.6 mmol/L (3.5-5.1); Protein, Total 7.6 g/dL (6.4-8.2); Sodium Level 136 mmol/L (136-145)
[2020-11-11] MEDS: 0.9% Normal Saline 1,000 ML 1000 ML IV (10:00)
[2020-11-11 10:04] VITALS: BP 115/74; PULSE 70; RESP 16; O2SAT 97
[2020-11-11 10:47] LABS: Platelet Estimate MOD DEC (ADEQ)
[2020-11-11 11:29] VITALS: BP 143/70; PULSE 68; RESP 15; O2SAT 96
[2020-11-14 15:11] LABS: Pathologist Review Reviewed
== END 2020-11-11 11:34 | disposition home or self-care (01) ==
PROVIDERS: Emergency Medicine; Emergency Provider Physician Assistant Medical; PCP Family Medicine Geriatric Medicine
DX: I95.1 Orthostatic hypotension (principal); Z95.810 Presence of automatic (implantable) cardiac defibrillator; E78.5 Hyperlipidemia, unspecified; I10 Essential (primary) hypertension; Z82.49 Family history of ischemic heart disease and other diseases of the circulatory system; Z87.891 Personal history of nicotine dependence
CPT/HCPCS: 80053; 84484; 85025; 93005; 93978; 96360; 99284; G0297; J7030; A4216

== ENCOUNTER → 2020-12-12 11:29 | Outpatient (CLI) | payer MEDICARE, OTHER, SELFPAY ==
[2020-12-12 12:55] LABS: PSA,Total - Annual Screen 1.32 ng/mL (0.00-4.00)
== END ==
PROVIDERS: PCP Family Medicine Geriatric Medicine; Visit Provider Family Medicine Geriatric Medicine
DX: Z12.5 Encounter for screening for malignant neoplasm of prostate (principal)
CPT/HCPCS: 36415; 84153; G0103

== ENCOUNTER → 2021-02-06 11:18 | Outpatient (CLI) | payer MEDICARE, OTHER, SELFPAY ==
[2021-02-06 12:20] LABS: Absolute Lymphocyte Count 0.97 X10^3/uL (0.83-4.51); Absolute Neutrophil Count 2.8 X10^3/uL (2.0-7.7); Basophil# 0.05 X10^3/uL; Basophil% 1.1 % (0-1); Eosinophil# 0.19 X10^3/uL; Eosinophils% 4.4 % (0-5); Hematocrit 41.7 % (40-54); Lymphocyte # 0.97 X10^3/ul (4.0); Lymphocyte % 22.3 % (19-41); Mean Corp Hgb Conc 31.2 g/dL (32-36); Mean Corpuscular Hgb 29.6 pg (27.0-32.0); Mean Platelet Vol. 11.1 fl (6.2-12.0); Monocyte# 0.31 X10^3/uL; Monocyte% 7.1 % (0-10); NRBC Flagged by Analyzer 0 % (0-5); Neutrophil # 2.82 X10^3/uL (2.7-7.7); Neutrophil % 64.9 % (47-70); Platelet Count 121 K/mm3 (150-450); RBC Distribution Width CV 14.6 % (11.6-14.6); RBC Distribution Width SD 51.3 fl (35.1-43.9); Red Blood Count 4.39 M/mm3 (4.6-6.2); White Blood Count 4.4 K/mm3 (4.4-11.0)
[2021-02-06 12:30] LABS: Vitamin D,25 Hydroxy 14.3 ng/mL
[2021-02-06 12:41] LABS: ALB/GLOB Ratio 0.8 RATIO (0.9-2.4); AST(SGOT) 24 U/L (15-37); Alanine Aminotransfer ALT/SGPT 25 U/L (16-61); Albumin, Serum 3.3 g/dL (3.2-5.0); Alkaline Phosphatase 111 U/L (45-117); Anion Gap 5 (5-15); BUN 15 mg/dL (7-18); Calcium,Total 8.6 mg/dL (8.5-10.1); Chloride 108 mmol/L (98-107); Creatinine, Serum 1.15 mg/dL (0.70-1.30); EST Glomerular Filtration Rate 66 mL/min (>60); Est Glom Filt Rate - Afr Amer 80 mL/min (>60); Globulin 4.3 g/dL (2.2-4.2); Glucose 89 mg/dL (74-106); Potassium 3.7 mmol/L (3.5-5.1); Protein, Total 7.6 g/dL (6.4-8.2); Sodium Level 141 mmol/L (136-145)
== END ==
PROVIDERS: PCP Family Medicine Geriatric Medicine; Visit Provider Family Medicine Geriatric Medicine
DX: E55.9 Vitamin D deficiency, unspecified (principal); R53.83 Other fatigue
CPT/HCPCS: 36415; 80053; 82306; 84443; 85025

== ENCOUNTER → 2021-05-08 08:47 | Outpatient (CLI) | payer MEDICARE, OTHER, SELFPAY ==
[2021-05-08 10:37] LABS: AST(SGOT) 26 U/L (15-37); Alanine Aminotransfer ALT/SGPT 20 U/L (16-61); Albumin, Serum 3.5 g/dL (3.2-5.0); Alkaline Phosphatase 95 U/L (45-117); Bilirubin, Direct 0.16 mg/dL (0.00-0.30); Cholesterol 168 mg/dL (200); Globulin 4.2 g/dL (2.2-4.2); High Density Lipoprotein 68 mg/dL; Protein, Total 7.7 g/dL (6.4-8.2); Triglycerides 103 mg/dL; Very Low Density Lipoprotein 21 mg/dL (5-40)
== END ==
PROVIDERS: PCP Family Medicine Geriatric Medicine; Referring Provider Nurse Practitioner Family; Visit Provider Nurse Practitioner Family
DX: E78.00 Pure hypercholesterolemia, unspecified (principal); E78.5 Hyperlipidemia, unspecified
CPT/HCPCS: 36415; 80061; 80076

== ENCOUNTER → 2021-05-09 10:36 | Outpatient (CLI) | payer MEDICARE, OTHER, SELFPAY ==
[2021-05-09 12:36] LABS: Absolute Lymphocyte Count 0.96 X10^3/uL (0.83-4.51); Absolute Neutrophil Count 2.2 X10^3/uL (2.0-7.7); Basophil# 0.06 X10^3/uL; Basophil% 1.6 % (0-1); Eosinophil# 0.21 X10^3/uL; Eosinophils% 5.5 % (0-5); Hematocrit 41.2 % (40-54); Hemoglobin 13.3 g/dL (13.0-16.5); Lymphocyte # 0.96 X10^3/ul (0.83-4.51); Lymphocyte % 25.2 % (19-41); Mean Corp Hgb Conc 32.3 g/dL (32-36); Mean Corpuscular Hgb 29.6 pg (27.0-32.0); Mean Corpuscular Volume 91.6 fL (80-94); Mean Platelet Vol. 11.3 fl (6.2-12.0); Monocyte# 0.33 X10^3/uL; Monocyte% 8.7 % (0-10); NRBC Flagged by Analyzer 0 % (0-5); Neutrophil # 2.24 X10^3/uL (2.7-7.7); Neutrophil % 58.7 % (47-70); Platelet Count 109 K/mm3 (150-450); RBC Distribution Width CV 14.2 % (11.6-14.6); RBC Distribution Width SD 47.8 fl (35.1-43.9); White Blood Count 3.8 K/mm3 (4.4-11.0)
[2021-05-09 12:37] LABS: Vitamin D,25 Hydroxy 23.6 ng/mL
[2021-05-09 12:43] LABS: ALB/GLOB Ratio 0.8 RATIO (0.9-2.4); AST(SGOT) 28 U/L (15-37); Alanine Aminotransfer ALT/SGPT 20 U/L (16-61); Albumin, Serum 3.4 g/dL (3.2-5.0); Alkaline Phosphatase 87 U/L (45-117); Anion Gap 9 (5-15); BUN 16 mg/dL (7-18); BUN/Creat Ratio 13.2 RATIO (10-20); Calcium,Total 8.5 mg/dL (8.5-10.1); Chloride 107 mmol/L (98-107); Creatinine, Serum 1.21 mg/dL (0.70-1.30); EST Glomerular Filtration Rate 62 mL/min (>60); Est Glom Filt Rate - Afr Amer 75 mL/min (>60); Glucose 102 mg/dL (74-106); Potassium 3.4 mmol/L (3.5-5.1); Protein, Total 7.4 g/dL (6.4-8.2); Sodium Level 141 mmol/L (136-145); Thyroid Stim Hormone (TSH) 1.03 uIU/mL (0.358-3.74)
== END ==
PROVIDERS: PCP Family Medicine Geriatric Medicine; Visit Provider Family Medicine Geriatric Medicine
DX: E55.9 Vitamin D deficiency, unspecified (principal); R53.83 Other fatigue
CPT/HCPCS: 36415; 80053; 82306; 84443; 85025

== ENCOUNTER → 2021-05-11 08:38 | Outpatient (CLI) | payer MEDICARE, OTHER, SELFPAY ==
--- NOTE | 2021-05-11 08:41 | US_ITS ---
STUDY: ULTRASOUND BREAST - LEFT REASON FOR EXAM: Male, 75 years old. Pain in the left breast. TECHNIQUE: Axial and longitudinal images of the LEFT breast were performed with a high resolution ultrasound transducer. # OF IMAGES: 21 COMPARISON: Comparison is made with prior mammogram done earlier today. FINDINGS: LEFT Breast: There is evidence of retroareolar glandular tissue. No masses seen. IMPRESSION: Retroareolar glandular tissue. ASSESSMENT CATEGORY: BIRADS Category 1: Negative. A letter regarding these results will be sent to the patient by the facility within 30 days. Electronically Signed: Manuelito Marte MD at 11:02 EDT , Service support , STUDY: ULTRASOUND BREAST - RIGHT REASON FOR EXAM: Male, 75 years old. Comparison imaging. TECHNIQUE: Axial and longitudinal images of the RIGHT breast were performed with a high resolution ultrasound transducer. # OF IMAGES: 21 COMPARISON: Comparison is made with prior mammogram dated 05/11/2021. FINDINGS: RIGHT Breast: There is evidence of retroareolar glandular tissue. No masses seen. US/Breast Limited Unilateral IMPRESSION: Retroareolar glandular tissue. ASSESSMENT CATEGORY: BIRADS Category 1: Negative. A letter regarding these results will be sent to the patient by the facility within 30 days. Electronically Signed: Manuelito Marte MD at 11:03 EDT , Service support ,
--- NOTE | 2021-05-11 08:41 | BI_ITS ---
MAMMOGRAPHY - BILATERAL DIAGNOSTIC REASON FOR EXAM: Male, 75 years old. Left breast pain. PERTINENT HISTORY: Non-contributory. TECHNIQUE: Digital bilateral breast tejal (3D mammographic acquisition) in the CC and MLO projections. 2-D mediolateral oblique (MLO) and craniocaudad (CC) views of both breasts were obtained. CAD: Full Field Digital Mammography with Computer Added Detection was performed. COMPARISON: None. Baseline examination. FINDINGS: Breast Composition: There are scattered areas of fibroglandular density in both retroareolar region slightly more prominent on the left side.. There are no dominant masses or suspicious calcifications. No other significant abnormalities are identified. BI/DIAG MAMM W/CAD, BILAT IMPRESSION: Negative diagnostic mammogram. With the patient''s history of left breast pain, correlation with ultrasound is recommended. ASSESSMENT CATEGORY: BIRADS Category 0: Incomplete. Need additional imaging evaluation. A letter regarding these results will be sent to the patient by the facility within 30 days. Approximately 10% of breast cancers are not detected by mammography. A normal mammogram should not delay biopsy of a clinically suspicious abnormality. Electronically Signed: Manuelito Marte MD at 10:44 EDT , Service support ,
== END ==
PROVIDERS: PCP Family Medicine Geriatric Medicine; Referring Provider Family Medicine Geriatric Medicine; Visit Provider Family Medicine Geriatric Medicine
DX: N64.4 Mastodynia (principal)
CPT/HCPCS: 76642; 77062; 77066; G0279

== ENCOUNTER → 2021-05-23 07:45 | Outpatient (CLI) | payer MEDICARE, OTHER, SELFPAY ==
[2021-05-15 14:18] VITALS: BMI 20.4
--- NOTE | 2021-05-23 07:46 | CT_ITS ---
STUDY: CT CHEST WITH CONTRAST REASON FOR EXAM: Male, 75 years old. TAA RADIATION DOSAGE (If Supplied By Facility): CTDIvol = ( 13.55 ) mGy, DLP = ( 331.54 ) mGycm TECHNIQUE: Transaxial imaging was performed following intravenous administration of IV 100mL Isovue-370. Individualized dose optimization techniques were used for this CT. COMPARISON: 11/11/2020 FINDINGS: Left subclavian pacemaker. Mild emphysematous changes. Mild bilateral apical scarring. No noncalcified nodule or mass. There is no demonstrated pleural abnormality. Normal heart and pericardium. Normal mediastinum. Normal hilar regions. Normal enhanced pulmonary arteries. Normal aorta arch and descending thoracic aorta. Normal osseous structures. There is no demonstrated abnormality of the visualized upper abdomen. CT/Chest WITH Contrast IMPRESSION: Mild emphysema without pneumonia, atelectasis, nodule, or mass. Electronically Signed: Dheeraj Rosales MD at 13:15 EDT Tel , Service support ,
== END ==
PROVIDERS: PCP Family Medicine Geriatric Medicine; Referring Provider Internal Medicine Cardiovascular Disease; Visit Provider Internal Medicine Cardiovascular Disease
DX: I71.2 Thoracic aortic aneurysm, without rupture (principal)
CPT/HCPCS: 71260; Q9967

== ENCOUNTER → 2021-08-07 12:03 | Outpatient (CLI) | payer MEDICARE, OTHER, SELFPAY ==
[2021-08-07 12:34] LABS: Absolute Lymphocyte Count 0.93 X10^3/uL (0.83-4.51); Absolute Neutrophil Count 3.5 X10^3/uL (2.0-7.7); Basophil# 0.06 X10^3/uL; Basophil% 1.2 % (0-1); Hematocrit 42.2 % (40-54); Hemoglobin 13.6 g/dL (13.0-16.5); Lymphocyte # 0.93 X10^3/ul (0.83-4.51); Lymphocyte % 18.4 % (19-41); Mean Corp Hgb Conc 32.2 g/dL (32-36); Mean Corpuscular Hgb 30.1 pg (27.0-32.0); Mean Corpuscular Volume 93.4 fL (80-94); Mean Platelet Vol. 10.2 fl (6.2-12.0); Monocyte# 0.42 X10^3/uL; Monocyte% 8.3 % (0-10); NRBC Flagged by Analyzer 0 % (0-5); Neutrophil # 3.53 X10^3/uL (2.7-7.7); Neutrophil % 69.7 % (47-70); Platelet Count 116 K/mm3 (150-450); RBC Distribution Width CV 13.4 % (11.6-14.6); RBC Distribution Width SD 46.2 fl (35.1-43.9); Red Blood Count 4.52 M/mm3 (4.6-6.2); White Blood Count 5.1 K/mm3 (4.4-11.0)
[2021-08-07 13:00] LABS: Vitamin D,25 Hydroxy 23.3 ng/mL
[2021-08-07 13:08] LABS: ALB/GLOB Ratio 0.9 RATIO (0.9-2.4); AST(SGOT) 24 U/L (15-37); Alanine Aminotransfer ALT/SGPT 25 U/L (16-61); Albumin, Serum 3.6 g/dL (3.2-5.0); Alkaline Phosphatase 85 U/L (45-117); Anion Gap 6 (5-15); BUN 14 mg/dL (7-18); BUN/Creat Ratio 12.6 RATIO (10-20); Calcium,Total 8.7 mg/dL (8.5-10.1); Chloride 104 mmol/L (98-107); Creatinine, Serum 1.11 mg/dL (0.70-1.30); EST Glomerular Filtration Rate 69 mL/min (>60); Est Glom Filt Rate - Afr Amer 83 mL/min (>60); Globulin 4.2 g/dL (2.2-4.2); Glucose 93 mg/dL (74-106); Protein, Total 7.8 g/dL (6.4-8.2); Sodium Level 138 mmol/L (136-145)
== END ==
PROVIDERS: PCP Family Medicine Geriatric Medicine; Visit Provider Family Medicine Geriatric Medicine
DX: E55.9 Vitamin D deficiency, unspecified (principal); R53.83 Other fatigue
CPT/HCPCS: 36415; 80053; 82306; 84443; 85025

== ENCOUNTER → 2021-09-14 | Outpatient (CLI) | payer MEDICARE, OTHER, SELFPAY ==
[2021-09-14 12:55] LABS: Bacteria 0 SEEN /hpf (None Seen); Mucous, Urine 0 SEEN /hpf (<or=2+); Squamous Epithelial Cells - UA 0 SEEN /hpf (0-5)
[2021-09-14 13:27] LABS: Color, Urine Yellow (Yellow); Glucose, Dipstick Normal (Normal); Ketone-Dipstick Negative (Negative); Leukocyte Esterase-Dipstick 25 /ul (Negative); Nitrite-Dipstick Negative (Negative); Occult Blood-Urine 50 /ul (Negative); Protein-Dipstick 15 mg/dl (Negative); Urine Bilirubin Dipstick Negative (Negative); Urine Clarity Clear (Clear); Urine Urobilinogen Normal (Normal)
[2021-09-14 13:46] LABS: Red Blood Cells-Urine 0-5 SEEN /hpf (0-5); White Blood Cells 0-5 SEEN /hpf (0-5)
== END | disposition home or self-care (01) ==
PROVIDERS: PCP Family Medicine Geriatric Medicine; Referring Provider Urology; Visit Provider Urology
DX: R31.29 Other microscopic hematuria (principal)
CPT/HCPCS: 81001

== ENCOUNTER → 2021-09-21 12:41 | Outpatient (CLI) | payer MEDICARE, OTHER, SELFPAY ==
--- NOTE | 2021-09-21 12:43 | CT_ITS ---
STUDY: CT CHEST, ABDOMEN, PELVIS WITH T WITHOUT CONTRAST REASON FOR EXAM: Male, 76 years old. Right renal neoplasm. Prior partial right nephrectomy. RADIATION DOSAGE (If Supplied By Facility): CTDIvol = ( 12.43 ) mGy, DLP = ( 546.74 ) mGycm TECHNIQUE: Transaxial imaging was performed pre and post intravenous administration of IV 100mL Isovue-300. Individualized dose optimization techniques were used for this CT. COMPARISON: Comparison is made with prior study dated 09/19/2020. FINDINGS: CHEST Hyperinflation. Stable emphysematous changes. Stable scarring at the lung apices slightly more prominent on the right side. There is no demonstrated pleural abnormality. A left-sided dual-chamber pacemaker is seen. Normal mediastinum. Normal hilar regions. Normal unenhanced pulmonary arteries. Normal aorta arch and descending thoracic aorta. There are multi-level degenerative changes of the thoracic spine. ABDOMEN Normal liver. Normal gallbladder and extrahepatic biliary system. Normal spleen. Normal pancreas. Normal bilateral adrenal glands. The surgical defect is seen along the lateral midportion of the right kidney in comparison with the prior resection. Normal left kidney. Normal visualized stomach. Normal small intestine. Normal colon. The appendix is visualized and appears normal. There is diffuse atherosclerotic calcification of the abdominal aorta, without a demonstrated aneurysm. Normal inferior vena cava. Normal retroperitoneum. Normal abdominal wall. There are diffuse degenerative changes of the visualized lumbar spine. PELVIS Distended urinary bladder. The prostate is enlarged. It measures 5.5 cm by 6.4 cm. This causes indentation at the bladder base. Enlargement of the seminal vesicles. Normal visualized small intestine. Normal visualized colon. There is no pelvic fluid. There is no pelvic lymphadenopathy or mass lesion. There is diffuse atherosclerotic calcification of the pelvic arteries. CT/Abdomen/Pelvis W IV Cont ONLY IMPRESSION: Stable examination. Electronically Signed: Manuelito Marte MD at 14:11 EDT , Service support ,
--- NOTE | 2021-09-21 12:45 | RAD_ITS ---
STUDY: X-RAY CHEST REASON FOR EXAM: Male, 76 years old. Personal history of malignant neoplasm of the kidney. TECHNIQUE: PA and lateral views of the chest. COMPARISON: 09/19/2020. FINDINGS: The lungs are hyperexpanded. There is no focal mass or infiltrate. There is no demonstrated pleural abnormality. Normal size heart. Stable cardiac pacemaker. Normal mediastinum and araceli. Normal visualized pulmonary arteries. There is atherosclerotic calcification of the aortic arch with tortuosity. There are diffuse degenerative changes of the visualized thoracic spine. There is degenerative osteoarthritis of the bilateral shoulders. There is no demonstrated abnormality of the visualized soft tissue structures of the upper abdomen. RAD/Chest PA and Lateral IMPRESSION: 1. Question COPD without acute cardiopulmonary disease. 2. Stable cardiac pacemaker. Electronically Signed: Mitchell Irving DO at 23:59 EDT Tel [phone], Service support ,
[2021-09-21 13:00] LABS: CREATININE FINGERSTICK 1.2 mg/dL (0.70-1.30); EGFR FINGERSTICK > 60.0000 mL/min (>60)
== END ==
PROVIDERS: PCP Family Medicine Geriatric Medicine; Referring Provider Urology; Visit Provider Urology
DX: Z85.528 Personal history of other malignant neoplasm of kidney (principal)
CPT/HCPCS: 71046; 74177; Q9967

== ENCOUNTER → 2021-10-02 16:05 | Outpatient (CLI) | payer MEDICARE, OTHER, SELFPAY ==
--- NOTE | 2021-10-02 16:20 | RAD_ITS ---
STUDY: X-RAY - RIGHT KNEE REASON FOR EXAM: Male, 76 years old. Knee pain. TECHNIQUE: 3 view(s) of the knee. COMPARISON: None. FINDINGS: Osteopenia. Moderate medial compartmental arthrosis without osteophytes. Mild arthrosis of the lateral compartment. Superior patellar spur. Mild arthrosis of the patellofemoral compartment. Vascular calcification. RAD/Knee 3 Views IMPRESSION: Osteopenia with tricompartmental arthrosis as described. Small superior patellar spur. No acute finding or erosive changes. Electronically Signed: James Suggs MD at 10:43 EST , Service support ,
[2021-10-02 17:21] LABS: Absolute Neutrophil Count 4.2 X10^3/uL (2.0-7.7); Basophil# 0.06 X10^3/uL; Eosinophil# 0.09 X10^3/uL; Eosinophils% 1.5 % (0-5); Hematocrit 39.9 % (40-54); Hemoglobin 12.7 g/dL (13.0-16.5); Lymphocyte % 19.8 % (19-41); Mean Corp Hgb Conc 31.8 g/dL (32-36); Mean Corpuscular Hgb 29.7 pg (27.0-32.0); Mean Corpuscular Volume 93.2 fL (80-94); Mean Platelet Vol. 10.7 fl (6.2-12.0); Monocyte# 0.46 X10^3/uL; Monocyte% 7.6 % (0-10); NRBC Flagged by Analyzer 0 % (0-5); Neutrophil # 4.24 X10^3/uL (2.7-7.7); Neutrophil % 69.9 % (47-70); Platelet Count 128 K/mm3 (150-450); RBC Distribution Width CV 13.7 % (11.6-14.6); RBC Distribution Width SD 46.4 fl (35.1-43.9); Red Blood Count 4.28 M/mm3 (4.6-6.2); White Blood Count 6.1 K/mm3 (4.4-11.0)
[2021-10-02 17:36] LABS: Erythrocyte Sedimentation Rate 17 mm/hr (0-20)
[2021-10-02 17:37] LABS: Anion Gap 3 (5-15); BUN 20 mg/dL (7-18); CRP 3.83 mg/L (0.0-3.0); Calcium,Total 8.8 mg/dL (8.5-10.1); Chloride 106 mmol/L (98-107); Creatinine, Serum 1.25 mg/dL (0.70-1.30); EST Glomerular Filtration Rate 60 mL/min (>60); Est Glom Filt Rate - Afr Amer 72 mL/min (>60); Glucose 89 mg/dL (74-106); Potassium 3.9 mmol/L (3.5-5.1); Sodium Level 138 mmol/L (136-145); Uric Acid 4.5 mg/dL (3.5-7.2)
== END ==
PROVIDERS: PCP Family Medicine Geriatric Medicine; Referring Provider Family Medicine Geriatric Medicine; Visit Provider Family Medicine Geriatric Medicine
DX: M25.569 Pain in unspecified knee (principal); R79.9 Abnormal finding of blood chemistry, unspecified; Z85.528 Personal history of other malignant neoplasm of kidney
CPT/HCPCS: 36415; 73562; 80048; 84550; 85025; 85652; 86140

== ENCOUNTER → 2021-10-17 15:48 | Outpatient (CLI) | payer MEDICARE, OTHER, SELFPAY ==
[2021-10-17 17:07] LABS: Absolute Lymphocyte Count 1.37 X10^3/uL (0.83-4.51); Absolute Neutrophil Count 5.7 X10^3/uL (2.0-7.7); Basophil# 0.08 X10^3/uL; Eosinophil# 0.05 X10^3/uL; Eosinophils% 0.6 % (0-5); Hematocrit 40.9 % (40-54); Hemoglobin 13.1 g/dL (13.0-16.5); Lymphocyte # 1.37 X10^3/ul (0.83-4.51); Lymphocyte % 17.7 % (19-41); Mean Corpuscular Hgb 30.2 pg (27.0-32.0); Mean Corpuscular Volume 94.2 fL (80-94); Monocyte# 0.54 X10^3/uL; NRBC Flagged by Analyzer 0 % (0-5); Neutrophil # 5.69 X10^3/uL (2.7-7.7); Neutrophil % 73.4 % (47-70); Platelet Count 116 K/mm3 (150-450); RBC Distribution Width CV 14.2 % (11.6-14.6); RBC Distribution Width SD 49.1 fl (35.1-43.9); Red Blood Count 4.34 M/mm3 (4.6-6.2); White Blood Count 7.8 K/mm3 (4.4-11.0)
== END ==
PROVIDERS: PCP Family Medicine Geriatric Medicine; Visit Provider Family Medicine Geriatric Medicine
DX: D64.9 Anemia, unspecified (principal)
CPT/HCPCS: 36415; 85025

== ENCOUNTER → 2021-10-26 08:23 | Outpatient (CLI) | payer MEDICARE, OTHER, SELFPAY ==
[2021-10-26 10:03] LABS: AST(SGOT) 16 U/L (15-37); Alanine Aminotransfer ALT/SGPT 24 U/L (16-61); Albumin, Serum 3.5 g/dL (3.2-5.0); Alkaline Phosphatase 104 U/L (45-117); Bilirubin, Direct 0.19 mg/dL (0.00-0.30); Cholesterol 168 mg/dL (200); Globulin 3.9 g/dL (2.2-4.2); High Density Lipoprotein 70 mg/dL; Protein, Total 7.4 g/dL (6.4-8.2); Triglycerides 69 mg/dL; Very Low Density Lipoprotein 14 mg/dL (5-40)
== END ==
PROVIDERS: PCP Family Medicine Geriatric Medicine; Referring Provider Nurse Practitioner Family; Visit Provider Nurse Practitioner Family
DX: E78.00 Pure hypercholesterolemia, unspecified (principal); E78.5 Hyperlipidemia, unspecified
CPT/HCPCS: 36415; 80061; 80076

== ENCOUNTER → 2021-11-09 | Outpatient (CLI) | payer MEDICARE, OTHER, SELFPAY ==
[2021-11-09 12:48] LABS: Absolute Lymphocyte Count 1.29 X10^3/uL (0.83-4.51); Absolute Neutrophil Count 3.5 X10^3/uL (2.0-7.7); Basophil# 0.05 X10^3/uL; Basophil% 0.9 % (0-1); Eosinophil# 0.06 X10^3/uL; Eosinophils% 1.1 % (0-5); Hematocrit 41.3 % (40-54); Hemoglobin 13.8 g/dL (13.0-16.5); Lymphocyte # 1.29 X10^3/ul (0.83-4.51); Lymphocyte % 23.6 % (19-41); Mean Corp Hgb Conc 33.4 g/dL (32-36); Mean Corpuscular Hgb 31.4 pg (27.0-32.0); Mean Corpuscular Volume 94.1 fL (80-94); Mean Platelet Vol. 10.8 fl (6.2-12.0); Monocyte# 0.55 X10^3/uL; Monocyte% 10.1 % (0-10); NRBC Flagged by Analyzer 0 % (0-5); Neutrophil # 3.48 X10^3/uL (2.7-7.7); Neutrophil % 63.8 % (47-70); Platelet Count 130 K/mm3 (150-450); RBC Distribution Width CV 13.9 % (11.6-14.6); RBC Distribution Width SD 48.5 fl (35.1-43.9); Red Blood Count 4.39 M/mm3 (4.6-6.2); White Blood Count 5.5 K/mm3 (4.4-11.0)
[2021-11-09 12:57] LABS: Vitamin D,25 Hydroxy 16.1 ng/mL
[2021-11-09 13:07] LABS: ALB/GLOB Ratio 0.8 RATIO (0.9-2.4); AST(SGOT) 13 U/L (15-37); Alanine Aminotransfer ALT/SGPT 21 U/L (16-61); Albumin, Serum 3.4 g/dL (3.2-5.0); Alkaline Phosphatase 97 U/L (45-117); Anion Gap 3 (5-15); BUN 19 mg/dL (7-18); BUN/Creat Ratio 17.4 RATIO (10-20); Chloride 106 mmol/L (98-107); Creatinine, Serum 1.09 mg/dL (0.70-1.30); EST Glomerular Filtration Rate 70 mL/min (>60); Est Glom Filt Rate - Afr Amer 85 mL/min (>60); Glucose 88 mg/dL (74-106); Potassium 3.9 mmol/L (3.5-5.1); Protein, Total 7.4 g/dL (6.4-8.2); Sodium Level 139 mmol/L (136-145); Thyroid Stim Hormone (TSH) 0.98 uIU/mL (0.358-3.74)
== END | disposition home or self-care (01) ==
LOC: POLAB3 12-04 13:24
PROVIDERS: PCP Family Medicine Geriatric Medicine; Visit Provider Family Medicine Geriatric Medicine
DX: E55.9 Vitamin D deficiency, unspecified (principal); R53.83 Other fatigue
CPT/HCPCS: 36415; 80053; 82306; 84443; 85025

== ENCOUNTER → 2021-11-15 06:25 | Outpatient (CLI) | payer MEDICARE, OTHER, SELFPAY ==
--- NOTE | 2021-11-15 06:29 | ECHOD_ITS ---
Reason For Study: Valve Disease Procedure This was a 2D Doppler, Color Flow transthoracic echocardiogram. The exam was of adequate technical quality. Exam performed in department. Left Ventricle Mildly dilated left ventricle. Moderate global left ventricular systolic dysfunction. The estimated ejection fraction is 35 %. No evidence for diastolic dysfunction. Right Ventricle Normal RV size. ICD or pacer leads identified within the right ventricle. Normal systolic function. Atria Normal left atrium. The right atrium is mildly enlarged. ICD or pacer leads identified within the right atrium. No doppler evidence for ASD. Mitral Valve There is no mitral annular calcification. Mild diffuse mitral valve thickening. Mild mitral valve prolapse. Trivial mitral valve insufficiency. Tricuspid Valve Normal tricuspid valve. Mild (1+) tricuspid valve insufficiency. Right ventricular systolic pressure estimated to be 22 mmHg. Aortic Valve Trisinus/trileaflet aortic valve. Mild diffuse aortic valve thickening. Trivial aortic valve insufficiency. Pulmonic Valve The pulmonic valve is not well visualized. Great Vessels Mild to moderately dilated aortic root. Pericardium/Pleural No pericardial effusion. MMode/2D Measurements & Calculations LVIDd: 5.8 cm IVSd: 1.0 cm Ao root diam: 4.6 cm LVIDs: 4.5 cm LVPWd: 0.92 cm LA dimension: 2.8 cm FS: 21.9 % LAV(MOD-bp): 39.5 ml LA A4 area: 13.9 cm2 RA A4 area: 21.2 cm2 LAV(MOD-bp) Indexed: 22.3 ml/m2 LAV(MOD-sp2): 51.6 ml LAV(MOD-sp4): 30.4 ml Time Measurements MV dec time: 0.23 sec Doppler Measurements & Calculations MV E max jay: 46.3 cm/sec Lat Peak E' Jay: 5.0 cm/sec Med Peak E' Jay: 4.1 cm/sec MV A max jay: 74.7 cm/sec E/E' lat: 9.2 E/E' med: 11.2 MV E/A: 0.62 MV V2 max: 78.1 cm/sec MV P1/2t max jay: 41.8 cm/sec Ao V2 max: 81.5 cm/sec MV max P.4 mmHg MV P1/2t: 70.2 msec Ao max P.7 mmHg MV V2 mean: 36.2 cm/sec MV dec slope: 174.7 cm/sec2 MV mean P.67 mmHg MVA(P1/2t): 3.1 cm2 MV V2 VTI: 17.1 cm LV V1 max: 64.1 cm/sec PA V2 max: 69.5 cm/sec TR max jay: 220.4 cm/sec LV V1 max P.6 mmHg TR max P.4 mmHg ECHO/Echo Complete Interpretation Summary Mildly dilated left ventricle. Moderate global left ventricular systolic dysfunction. The estimated ejection fraction is 35 %. The right atrium is mildly enlarged. Mild diffuse mitral valve thickening. Mild mitral valve prolapse. Trivial mitral valve insufficiency. Mild (1+) tricuspid valve insufficiency. Mild diffuse aortic valve thickening. Trivial aortic valve insufficiency. Mild to moderately dilated aortic root. Right ventricular systolic pressure estimated to be 22 mmHg. No evidence for diastolic dysfunction. ICD or pacer leads identified within the right atrium ICD or pacer leads identified within the right ventricle. Ordering Physician: Jori Pablo Referring Physician: Sree Ash Chi Performed By: Pancho Diaz RCS
--- NOTE | 2021-11-15 09:43 | STRESSREP ---
Stress Test Report Date: 11-15-2021 Procedure: Pharmacologic stress nuclear imaging study Indications: Preoperative cardiovascular evaluation; cardiomyopathy; status post ICD placement Consent: Per the patient Procedure: The patient underwent pharmacologic (Regadenoson 0.4mg ) evaluation with a peak heart rate of 88 beats per minute (61%predicted maximal heart rate) and a peak blood pressure of 142/72 mmHg. The baseline ECG demonstrated electronic ventricular paced rhythm. The peak pharmacologic ECG demonstrated continued electronic ventricular paced rhythm. There was a rare premature ectopic complex pretest and during recovery. There was no complaint of chest discomfort during pharmacologic infusion or recovery. The examination was discontinued secondary to completion of protocol. Impression: 1. Pharmacologic (Regadenoson) evaluation 2. Peak pharmacologic ECG with continued electronic ventricular paced rhythm. 3. There was a rare premature ectopic complex pretest and during recovery. 4. Nuclear images pending Myocardial perfusion imaging study: Technique: The patient was injected with 11.1 millicuries of technetium 99m Cardiolite and subsequently rest SPECT Cardiolite nuclear imaging was obtained in the horizontal long, vertical long, and short axis views. The patient underwent pharmacologic (Regadenoson) evaluation with a peak heart rate of 88 beats per minute (61% percent predicted maximal heart rate) and a peak blood pressure of 142/72 mmHg. The patient was injected with 33.6 millicuries of technetium 99m Cardiolite and subsequently stress SPECT Cardiolite nuclear imaging was obtained in the horizontal long, vertical long, and short axis views. A gated Cardiolite study at peak stress was obtained. Interpretation: Rest and stress SPECT Cardiolite nuclear imaging status post realignment, normalization, and attenuation correction demonstrate the appearance of a small area of subtle diminished tracer uptake near the apical segments without significant change between rest and stress. There is diminished end systolic thickening and brightening. The gated Cardiolite study demonstrates diminished myocardial thickening and inward wall motion. The reported LVEF is 31%. Impression: 1. Rest and stress SPECT current nuclear imaging demonstrate myocardial perfusion changes appearing compatible with the effects of physiologic apical thinning with no myocardial perfusion changes considered diagnostic for associated stress-induced myocardial ischemia. 2. The gated Cardiolite study reports an LVEF of 31%. This note was generated with [employer] software. It may contain incorrect words, spelling, and punctuation that were not noted in checking the note before signing.
== END ==
PROVIDERS: PCP Family Medicine Geriatric Medicine; Referring Provider Nurse Practitioner Family; Visit Provider Nurse Practitioner Family
DX: Z01.810 Encounter for preprocedural cardiovascular examination (principal); I34.1 Nonrheumatic mitral (valve) prolapse; I42.9 Cardiomyopathy, unspecified; I47.2 Ventricular tachycardia; I71.2 Thoracic aortic aneurysm, without rupture; Z95.810 Presence of automatic (implantable) cardiac defibrillator; I51.7 Cardiomegaly
CPT/HCPCS: 78452; 93017; 93306; A9500; A4216; J2785

== ENCOUNTER 2021-12-21 11:55 | Outpatient (CLI) | payer MEDICARE, OTHER, SELFPAY ==
[2021-12-21 12:20] LABS: Absolute Neutrophil Count 3.2 X10^3/uL (2.0-7.7); Basophil# 0.05 X10^3/uL; Eosinophil# 0.11 X10^3/uL; Eosinophils% 2.3 % (0-5); Hematocrit 42.8 % (40-54); Hemoglobin 13.9 g/dL (13.0-16.5); Lymphocyte % 20.9 % (19-41); Mean Corp Hgb Conc 32.5 g/dL (32-36); Mean Corpuscular Hgb 30.5 pg (27.0-32.0); Mean Corpuscular Volume 94.1 fL (80-94); Monocyte# 0.45 X10^3/uL; Monocyte% 9.4 % (0-10); NRBC Flagged by Analyzer 0 % (0-5); Neutrophil # 3.16 X10^3/uL (2.7-7.7); Neutrophil % 66.2 % (47-70); Platelet Count 131 K/mm3 (150-450); RBC Distribution Width CV 13.9 % (11.6-14.6); Red Blood Count 4.55 M/mm3 (4.6-6.2); White Blood Count 4.8 K/mm3 (4.4-11.0)
[2021-12-21 12:27] LABS: International Normalized Ratio 1.5; Prothrombin Time (Protime)PT. 17.8 SECONDS (11.7-14.9)
[2021-12-21 13:23] LABS: Anion Gap 6 (5-15); BUN 13 mg/dL (7-18); BUN/Creat Ratio 10.7 RATIO (10-20); Calcium,Total 8.9 mg/dL (8.5-10.1); Chloride 105 mmol/L (98-107); Creatinine, Serum 1.21 mg/dL (0.70-1.30); EST Glomerular Filtration Rate 62 mL/min (>60); Est Glom Filt Rate - Afr Amer 75 mL/min (>60); Glucose 96 mg/dL (74-106); Sodium Level 138 mmol/L (136-145)
== END 2021-12-21 23:59 | disposition short-term general hospital (02) ==
LOC: POLAB3 11:57
PROVIDERS: PCP Family Medicine Geriatric Medicine; Visit Provider Family Medicine Geriatric Medicine
DX: Z01.812 Encounter for preprocedural laboratory examination (principal)
CPT/HCPCS: 36415; 80048; 85025; 85610

== ENCOUNTER 2022-01-15 15:19 | Outpatient (CLI) | payer MEDICARE, OTHER, SELFPAY ==
[2022-01-15 16:39] LABS: Absolute Lymphocyte Count 0.99 X10^3/uL (0.83-4.51); Absolute Neutrophil Count 4.7 X10^3/uL (2.0-7.7); Basophil# 0.06 X10^3/uL; Basophil% 0.9 % (0-1); Eosinophil# 0.07 X10^3/uL; Eosinophils% 1.1 % (0-5); Hematocrit 39.2 % (40-54); Hemoglobin 13.2 g/dL (13.0-16.5); Lymphocyte # 0.99 X10^3/ul (0.83-4.51); Lymphocyte % 15.4 % (19-41); Mean Corp Hgb Conc 33.7 g/dL (32-36); Mean Corpuscular Hgb 31.6 pg (27.0-32.0); Mean Corpuscular Volume 93.8 fL (80-94); Mean Platelet Vol. 10.3 fl (6.2-12.0); Monocyte% 9.3 % (0-10); NRBC Flagged by Analyzer 0 % (0-5); Neutrophil # 4.68 X10^3/uL (2.7-7.7); Platelet Count 141 K/mm3 (150-450); RBC Distribution Width CV 13.5 % (11.6-14.6); RBC Distribution Width SD 46.3 fl (35.1-43.9); Red Blood Count 4.18 M/mm3 (4.6-6.2); White Blood Count 6.4 K/mm3 (4.4-11.0)
[2022-01-15 16:42] LABS: International Normalized Ratio 1.1; Partial Thromboplast Time 31.4 Seconds (24.1-36.2); Prothrombin Time (Protime)PT. 13.9 SECONDS (11.7-14.9)
== END 2022-01-15 23:59 | disposition home or self-care (01) ==
LOC: POLAB3 15:20
PROVIDERS: PCP Family Medicine Geriatric Medicine; Visit Provider Family Medicine Geriatric Medicine
DX: D68.9 Coagulation defect, unspecified (principal)
CPT/HCPCS: 36415; 85025; 85610; 85730

== ENCOUNTER 2022-01-24 12:28 | Outpatient (CLI) | payer MEDICARE, OTHER, SELFPAY ==
--- NOTE | 2022-01-24 12:32 | CT_ITS ---
STUDY: CT LEFT LOWER EXTREMITY WITHOUT CONTRAST REASON FOR EXAM: Left knee osteoarthritis, surgical planning. TECHNIQUE: Transaxial CT imaging of the lower extremity was performed. Coronal and sagittal images were reformatted. Individualized dose optimization techniques were used for this CT. COMPARISON: Radiographs 10/02/2021. FINDINGS: Knee: There is joint space narrowing of the medial femorotibial compartment with subchondral cystic change (coronal reconstruction 32). There is a subchondral stress fracture of the medial femoral condyle (coronal reconstructions 36-39). There is preservation of joint space of the lateral femorotibial compartment. There is joint space narrowing of the patellofemoral compartment (axial image 216). There is a joint effusion. There is an enthesophyte at the superior pole of the patella. There is vascular calcification. There is a small calcification at the peripheral aspect lateral femoral condyle (coronal reconstruction 31). Hip: There is mild joint space narrowing of the left hip (sagittal reconstruction 43). There is vascular calcification. Ankle: Normal tibiotalar, posterior subtalar and talonavicular articulations. There is a stricture calcaneal enthesophyte. There are corticated ossifications at the distal aspect of the lateral malleolus. CT/Extremity Lower without Contra IMPRESSION: Left knee osteoarthritis. Subchondral stress fracture of the medial femoral condyle. Electronically Signed: Adonay Beckham MD at 14:57 EST ,
== END 2022-01-24 23:59 | disposition home or self-care (01) ==
LOC: CT 12:31
PROVIDERS: PCP Family Medicine Geriatric Medicine; Referring Provider Student in an Organized Health Care Education/Training Program; Visit Provider Student in an Organized Health Care Education/Training Program
DX: M17.12 Unilateral primary osteoarthritis, left knee (principal)
CPT/HCPCS: 73700

== ENCOUNTER 2022-02-05 12:01 | Outpatient (CLI) | payer MEDICARE, OTHER, SELFPAY ==
--- NOTE | 2022-02-05 12:05 | RAD_ITS ---
STUDY: X-RAY - ABDOMEN/PELVIS REASON FOR EXAM: Male, 76 years old. DIARRHEA TECHNIQUE: 4 AP views COMPARISON: None. FINDINGS: Normal visualized lung bases. There is an abundance of fecal material throughout the colon. There is no demonstrated free abdominal air. The visualized liver, spleen and kidneys are grossly normal in size and morphology. Normal soft tissue structures. There are diffuse degenerative changes of the visualized lumbar spine. RAD/Abd Inc Decub and/or Erect IMPRESSION: No acute abdominal or pelvic process Retained stool Electronically Signed: Ryley Bergman MD at 10:10 EDT ,
== END 2022-02-05 23:59 | disposition home or self-care (01) ==
LOC: RAD 12:04
PROVIDERS: Referring Provider Family Medicine Geriatric Medicine; Visit Provider Family Medicine Geriatric Medicine
DX: R19.7 Diarrhea, unspecified (principal)
CPT/HCPCS: 74019

== ENCOUNTER 2022-02-08 10:27 | Observation (INO) | payer MEDICARE, OTHER, SELFPAY ==
[2022-01-26 12:26] LABS: Absolute Lymphocyte Count 0.99 X10^3/uL (0.83-4.51); Absolute Neutrophil Count 4.2 X10^3/uL (2.0-7.7); Basophil# 0.08 X10^3/uL; Basophil% 1.4 % (0-1); Eosinophil# 0.04 X10^3/uL; Eosinophils% 0.7 % (0-5); Hematocrit 38.6 % (40-54); Hemoglobin 12.4 g/dL (13.0-16.5); Lymphocyte # 0.99 X10^3/ul (0.83-4.51); Lymphocyte % 17.3 % (19-41); Mean Corp Hgb Conc 32.1 g/dL (32-36); Mean Corpuscular Hgb 30.2 pg (27.0-32.0); Mean Corpuscular Volume 93.9 fL (80-94); Mean Platelet Vol. 10.2 fl (6.2-12.0); Monocyte# 0.39 X10^3/uL; Monocyte% 6.8 % (0-10); NRBC Flagged by Analyzer 0 % (0-5); Neutrophil # 4.21 X10^3/uL (2.7-7.7); Neutrophil % 73.6 % (47-70); Platelet Count 142 K/mm3 (150-450); RBC Distribution Width CV 12.9 % (11.6-14.6); RBC Distribution Width SD 44.9 fl (35.1-43.9); Red Blood Count 4.11 M/mm3 (4.6-6.2); White Blood Count 5.7 K/mm3 (4.4-11.0)
--- NOTE | 2022-01-26 12:36 | RAD_ITS ---
STUDY: X-RAY CHEST REASON FOR EXAM: Male, 76 years old. CHEST PAIN Preop TECHNIQUE: XR Chest 2 Views COMPARISON: 09.21.21 FINDINGS: There is no demonstrated pleural abnormality. The lung pope are hyperexpanded. There is a left sided pacemaker batterypack. Normal size heart. Normal mediastinum and araceli. Normal visualized pulmonary arteries. There is atherosclerotic calcification of the aortic arch with tortuosity. There are diffuse degenerative changes of the visualized thoracic spine. There is degenerative osteoarthritis of the bilateral shoulders. There is no demonstrated abnormality of the visualized soft tissue structures of the upper abdomen. RAD/Chest PA and Lateral IMPRESSION: There are no acute findings. Electronically Signed: Gutierrez Causey MD at 17:14 EST ,
--- NOTE | 2022-01-26 12:37 | EKG12_ITS ---
Test Reason : PRE OP Blood Pressure : / mmHG Vent. Rate : 075 BPM Atrial Rate : 075 BPM P-R Int : 176 ms QRS Dur : 160 ms QT Int : 468 ms P-R-T Axes : 057 -89 082 degrees QTc Int : 522 ms AV dual-paced rhythm Biventricular pacemaker detected Abnormal ECG Confirmed by KRYSTIAN GRAVES, JOSE ([id number]), book or script editor LOUIS WILLIAMSON ([id number]) on 01/29/2022 11:02:52 AM Referred By: KEVIN Confirmed By:JOSE BOLAND MD
[2022-01-26 12:44] LABS: International Normalized Ratio 1.4; Prothrombin Time (Protime)PT. 16.6 SECONDS (11.7-14.9)
[2022-01-26 12:45] LABS: Partial Thromboplast Time 42.6 Seconds (24.1-36.2)
[2022-01-26 13:10] LABS: AST(SGOT) 18 U/L (15-37); Alanine Aminotransfer ALT/SGPT 18 U/L (16-61); Albumin, Serum 3.4 g/dL (3.2-5.0); Alkaline Phosphatase 83 U/L (45-117); Bilirubin, Direct 0.22 mg/dL (0.00-0.30); Globulin 4.1 g/dL (2.2-4.2); Magnesium 2.3 mg/dL (1.6-2.6); Protein, Total 7.5 g/dL (6.4-8.2)
[2022-01-26 13:12] LABS: Anion Gap 5 (5-15); BUN 11 mg/dL (7-18); BUN/Creat Ratio 9.2 RATIO (10-20); Calcium,Total 8.9 mg/dL (8.5-10.1); Chloride 104 mmol/L (98-107); Creatinine, Serum 1.19 mg/dL (0.70-1.30); EST Glomerular Filtration Rate 63 mL/min (>60); Est Glom Filt Rate - Afr Amer 76 mL/min (>60); Glucose 128 mg/dL (74-106); Potassium 3.9 mmol/L (3.5-5.1); Sodium Level 137 mmol/L (136-145)
[2022-02-08] VITALS (13 sets, daily range): BP systolic 110–131; BP diastolic 62–75; PULSE 67–73; RESP 12–18; TEMP 36.2–36.9; O2SAT 96–100; BMI 20.2
[2022-02-08 05:51] LABS: INR Fingerstick 1.7; Prothrombin Time Fingerstick 20.9 SEC (11.7-14.9)
[2022-02-08] MEDS: Lactated Ringers 1,000 ML 999 ML IV ×2 (05:55→11:03)
[2022-02-08] MEDS: Celecoxib 200 MG Capsule 400 MG PO (06:14)
[2022-02-08] MEDS: Acetaminophen 500 MG Tablet 1000 MG PO ×3 (06:16→21:16)
[2022-02-08] MEDS: Gabapentin 600 MG Tablet PO (06:18)
[2022-02-08 06:40] LABS: International Normalized Ratio 1.2; Prothrombin Time (Protime)PT. 14.4 SECONDS (11.7-14.9)
[2022-02-08] MEDS: Lactated Ringers 1,000 ML 75 ML IV (07:00)
[2022-02-08] MEDS: Cefazolin 2 GM in 0.9% Normal Saline 100 ML IV (07:30)
--- NOTE | 2022-02-08 07:30 | KNEE_PTH ---
PATIENT: BENITO HILL LOC: MS3 U#:[id number] AGE/SX: 76/M ROOM: SC315 RE02/08/[address]: Dr. Roman Dozier DO : 1945 BED: 1 DIS: 02/10/2022 SPEC #: [id number] RECD: 02/08/22 13:14 STATUS: GRACE ORIANA #: [id number] TRINA: 02/08/22 07:[address]: Roman Dozier DEPT: SURGICAL PATHOLOGY RECD BY: Astrid Redding ENTERED: 02/09/22 09:40 SP TYPE: TOTAL KNEE OTHR DR: Dr. Sree Ash MD Tissues: Knee, NOS Procedures: Decalcification bone/plaque Surgery Specimen Level IV HEADER OPERATION: ERAS, total knee replacement robotic arm assist PRE-OP DIAGNOSIS: Primary osteoarthritis left knee TISSUE SUBMITTED: Left total knee bone resections MICROSCOPIC DIAGNOSIS Bone and tissue of left knee, total knee resection: Consistent with severe degenerative joint disease. Mild synovial hyperplasia. AM:brown 02/14/2022 MICROSCOPIC DESCRIPTION Slides are reviewed. GROSS DESCRIPTION Received is one container designated left knee resection. The specimen consists of multiple fragments of merida-yellow bone measuring in aggregate 16 x 14 x 2 cm. Also in the specimen container are multiple fragments of yellow-white soft tissue measuring in aggregate 6.5 x 5.5 x 2.2 cm. A number of bony fragments contain articular surfaces consistent with tibial plateau and femoral condyle and displaying prominent osteophyte formation, eburnation, and bone erosion. Sports Betting Manager sections are submitted in two cassettes as follows: 1 - soft tissue, 2 - bone after decalcification. / AM:brown 02/09/2022 TC:5 [facility]: [id number], [id number]
[2022-02-08] MEDS: TXA 1000mg in NS100 100ml (IVPB at Incision) 660 MG IV (07:40)
[2022-02-08] MEDS: dexAMETHasone 10 MG/ML Vial IV (08:05)
[2022-02-08] MEDS: Vancomycin IV 1,000 MG/200 ML BAG 200 MG IV (08:45)
[2022-02-08] MEDS: TXA 1000mg in NS100 100ml (IVPB at Closure) 660 MG IV (09:57)
--- NOTE | 2022-02-08 10:29 | PCM.OPRPT ---
Report of Operation Date of Procedure: 02/08/22 Description of Surgical Findings:: Preoperative diagnosis: Left knee primary osteoarthritis Postoperative diagnosis: Left knee primary osteoarthritis Procedure: Cemented left total knee arthroplasty Surgeon: Roman Dozier DO Speech Communication Professor: Radhika Caraballo PA-C Anesthesia: Spinal with sedation, adductor canal block Anesthesiologist: Dr. Franklin Complications: None apparent Drains: None Estimated blood loss: 100 cc Urinary output: None recorded IV fluids: 1200 cc crystalloid Specimens: Total knee resections Surgical implants: Eliza triathlon X3 asymmetric patella size a 4011 mm thickness, triathlon cruciate retaining femoral #7, primary tibial baseplate #7, triathlon X3 tibial bearing insert CS Indications: This is a 76-year-old male seen in the outpatient setting diagnosed with left knee osteoarthritis with significant varus deformity. He failed nonoperative management with intra-articular corticosteroid injections, activity modification, bracing, [id number] analgesics. X-rays revealed grade 4 medial compartment changes. He also had significant patellofemoral arthritis. I recommended a left total knee arthroplasty. The risk, benefits, alternatives to procedure reviewed with patient at length and he agreed to proceed. Risks included but were not limited to bleeding, infection, loss of life or limb, need for additional surgery, persistent pain, intraoperative or postoperative fracture, instability, loosening of components, wound complications, stiffness, neurovascular injury, DVT or PE. Patient expressed understanding these risks and wished to proceed with surgery. Informed consent was obtained in the outpatient setting. Description of procedure: Patient was identified in the preoperative holding area by name, medical record number, and date of . Informed set was confirmed with the patient. The operative knee was marked with a surgical marker. At time of his procedure, patient brought to the operative suite and positioned supine a standard operating table. Anesthesia then administered a spinal anesthetic. He was then repositioned in the supine position with all bony prominences well-padded. We then placed a well-padded pneumatic tourniquet on the left upper thigh. The left upper extremity was brought across patient's chest throughout the procedure. We then prepped and draped the left lower extremity in a normal, sterile orthopedic fashion. We performed a timeout with all parties in attendance in agreement with the side, site, operation be performed. No concerns were voiced and would like to proceed with surgery. 2 g Ancef was administered prior to the incision by anesthesia staff as well as 1 g IV TXA. First exsanguinated the left lower extremity with a Esmarch bandage. Tourniquet was inflated to 280 mmHg. Esmarch was removed. I planned a standard midline approach to the left knee approximately 15 cm in length. Skin was sharply incised with a 10 blade scalpel developing full-thickness layers down to the retinaculum. Layers were developed identifying the VMO. I then planned a standard medial parapatellar arthrotomy performed in flexion. The anterior horn of the medial meniscus was released. Hoffa's fat pad was then released. I then everted the patella in extension and brought the knee into 90 degrees of flexion. The anterior horn of the lateral meniscus was then released. The ACL was split in its mid substance with a 10 blade. We then brought the knee back into extension. I measured the outer diameter of the patella to be approximately 46 mm, a patellar reamer was then selected. I measured the thickness of the patella to be 28 mm. I then reamed the patella to a depth of approximately 15 mm. A protective baseplate was then placed on the patella. I then placed pins in the metaphyseal distal femur medial to lateral for the Glenn arrays. In similar fashion, I made a 2 cm incision approximately a handsbreadth distal to the tibial tubercle along the medial aspect of the tibia, drilling 2 bicortical pins for the tibial array. The knee was brought into flexion. The patella was subluxed laterally but not everted. Medial lateral retractors were placed. We then utilized the [employer] software to confirm our planned surgical procedure and oriented with the patient's osseous anatomy. All checks with the [employer] system were confirmed. Patient had a significant fixed varus deformity after performing stress examination utilizing the Glenn software. We elected to place the tibial baseplate in approximately 3 degrees of varus to allow for appropriate balancing. Sawblade was then brought in. I first started with the tibial cut, ensuring protection of the MCL and patellar tendon. A tibial wafer was then excised. I then proceeded to make the posterior femoral, anterior, anterior chamfer cuts with the same blade. Ligaments were protected with [employer] retractors. Sawblade was then exchanged to perform the distal femoral and posterior chamfer cuts. The robot was then removed from the surgical field. Remaining loose bone and meniscus was excised carefully. Posterior osteophytes were removed from the distal femur with a curved osteotome and rongeur. Trial components were then placed. Balance was excellent in both extension and 90 degrees flexion. No mid flexion instability was apparent. I then drilled for a size 40 patella. Patella was trialed. Tracking was excellent. We then marked for tibial baseplate. Distal femoral pegs were drilled. Tibial keel was punched. Trials were removed. Periarticular block was administered. The wound was copiously irrigated with normal saline solution. Simplex cement was then mixed on the back table. Components were then cemented in place with excess cement being removed. Cement was allowed to cure with the components in full extension utilizing a 9 mm trial polyethylene component. While the cement was curing, Betadine solution was irrigated into the wound and the wound edges. After cement had cured fully, trial polyethylene was removed. Tourniquet was deflated. Hemostasis was excellent. An additional 1 g TXA was administered IV. I selected a size 9 mm polyethylene which was placed and impacted per quality director recommendations. Final components appeared very well balanced with excellent range of motion. There is no significant remaining flexion contracture. The wound was copiously irrigated with normal saline solution. Capsule was closed watertight with #1 strata fix barbed suture. Deeper report muscle layer was reapproximated with 0 Vicryl suture. Dermis was reapproximated buried interrupted 2-0 Vicryl suture. Skin was finally reapproximated samuel. Patient tolerated the procedure well without apparent complication. He was safely awakened in the operative suite, transferred to his hospital bed and subsequently to PACU in stable condition. Need for skilled medical record assistant: Radhika Caraballo PA-C was critical to the outcome of the case. During the course of the procedure the physician medical record assistant played a vital role. Her intimate knowledge of my steps in the procedure aided in safe and expedient completion of the procedure. The PA played a vital role in positioning particularly in obtaining the appropriate positioning. The PA was also vital in the retraction of soft tissues during the exposure and projecting vital structures. The PA was also vital and protecting soft tissues during times of bony cuts. She also played a vital role in closure with my direct supervision. The PA was also important during reduction and dislocation of the joint and trials intraoperatively. Post Operative Plan: Patient will be placed in observation overnight. Patient does live at home alone with no family in the area. He will likely need placement for convalescence. Weightbearing: Range of motion and weightbearing as tolerated left lower extremity. Antibiotics: Ancef 2 g every 8 hours x 3 doses DVT Prophylaxis: Restart home Xarelto postoperative day #1 Cornejo: None Dressing: Maintain silver dressing x7 days X-Rays: 2-week x-rays in the office. Follow-up: 2 weeks in my office for staple removal
[2022-02-08] MEDS: Lactated Ringers 1,000 ML 125 ML IV (11:55)
[2022-02-08] MEDS: Ensure Surgery 237 ML LIQUID PO ×2 (13:38→16:47)
[2022-02-08] MEDS: Cefazolin 1 GM/50 ML BAG IV ×2 (15:04→21:17)
[2022-02-08] MEDS: traMADol 50 MG Tablet PO ×2 (16:47→22:43)
[2022-02-08] MEDS: Senna/Docusate Sodium 1 Tablet 2 TABLET PO (21:16)
[2022-02-08] MEDS: Atorvastatin Calcium 10 MG Tablet PO (21:16)
[2022-02-08] MEDS: Lactated Ringers 1,000 ML 100 ML IV (21:17)
[2022-02-09 01:00] VITALS: BP 111/68; PULSE 70; RESP 16; TEMP 36.6; O2SAT 95
[2022-02-09] MEDS: traMADol 50 MG Tablet PO ×4 (04:29→22:06)
[2022-02-09] MEDS: Acetaminophen 500 MG Tablet 1000 MG PO ×3 (05:39→21:00)
[2022-02-09 06:49] LABS: Hematocrit 30.9 % (40-54); Hemoglobin 10.4 g/dL (13.0-16.5); Mean Corp Hgb Conc 33.7 g/dL (32-36); Mean Platelet Vol. 10.6 fl (6.2-12.0); Platelet Count 100 K/mm3 (150-450); RBC Distribution Width SD 43.7 fl (35.1-43.9); Red Blood Count 3.36 M/mm3 (4.6-6.2); White Blood Count 10.7 K/mm3 (4.4-11.0)
[2022-02-09 07:12] LABS: Anion Gap 4 (5-15); BUN 15 mg/dL (7-18); BUN/Creat Ratio 15.2 RATIO (10-20); Calcium,Total 8.5 mg/dL (8.5-10.1); Chloride 104 mmol/L (98-107); Creatinine, Serum 0.99 mg/dL (0.70-1.30); EST Glomerular Filtration Rate 78 mL/min (>60); Est Glom Filt Rate - Afr Amer 94 mL/min (>60); Estimated Creatinine Clearance 66.17 ml/min; Glucose 128 mg/dL (74-106); Potassium 4.1 mmol/L (3.5-5.1); Sodium Level 135 mmol/L (136-145)
[2022-02-09 07:37] VITALS: BP 116/64; PULSE 60; RESP 16; TEMP 36.6; O2SAT 100
[2022-02-09] MEDS: Ensure Surgery 237 ML LIQUID PO ×3 (07:42→16:58)
--- NOTE | 2022-02-09 07:43 | PCM.PN.ORT ---
Subjective Subjective Patient seen and examined. Denies any new complaints. Tolerating oral intake without nausea or vomiting. Urinating without difficulty. Denies fevers, chills, chest pain, shortness of breath. Objective Data Objective Data Vital Signs: Vital Signs Temp Pulse Resp BP Pulse Ox 97.8 F 60 16 116/64 100 02/09/22 07:37 02/09/22 07:37 02/09/22 07:37 02/09/22 07:37 02/09/22 07:37 Oxygen Flow Rate (L/min) 4 Oxygen Delivery Method Room Air Weight: 162 lb 7.691 oz Body Mass Index (BMI) 20.2 Intake & Output: Intake and Output for Last 24 Hours 02/07/22 02/08/22 02/09/22 23:59 23:59 23:59 Intake Total 5334.5 / 5334.5 873.33 / 873.33 Balance 5334.5 / 5334.5 873.33 / 873.33 Lab / Micro Data Result Diagrams: 02/09/22 06:10 02/09/22 06:10 Labs: Laboratory Results - last 24 hr 02/09/22 06:10: WBC 10.7, RBC 3.36 L, Hgb 10.4 L, Hct 30.9 L, MCV 92.0, MCH 31.0, MCHC 33.7, RDW Std Deviation 43.7, RDW Coeff of Mary 13.0, Plt Count 100 L, MPV 10.6 02/09/22 06:10: Sodium 135 L, Potassium 4.1, Chloride 104, Carbon Dioxide 27.0, Anion Gap 4 L, BUN 15, Creatinine 0.99, Estim Creat Clear Calc 66.17, Est GFR (MDRD) Af Amer 94, Est GFR (MDRD) Non-Af 78, BUN/Creatinine Ratio 15.2, Glucose 128 H, Calcium 8.5 Micro: Microbiology 01/26/22 12:13 Interface Orders Nasal Screen MRSA/MSSA - Final Physical Exam Narrative General - A&Ox3, NAD. VSS/AF Left lower extremity -incisional dressing C/D/I. Tibial array dressing shows focal dried sanguinous drainage. SILT Sural, Saphenous, SPN, DPN, Tibial N. distributions. DP, PT 2+. BCR. DF, PF, EHL 5/5. No calf TTP. Assessment & Plan Assessment/Plan (1) Unilateral primary osteoarthritis, left knee: PLAN: POD#1 s/p left robotic assisted TKA - Pain control-scheduled Tylenol and tramadol, oxycodone for breakthrough pain - PT/OT - DVT PPX -restart home Xarelto today, SCDs, BHAVNA warner, early mobilization - Case management - D/C planning. Patient does live at home alone with no family in the area. Likely will need placement.
[2022-02-09 10:38] VITALS: BP 105/56; PULSE 69; RESP 16; TEMP 36.7; O2SAT 98
[2022-02-09] MEDS: Escitalopram Oxalate 20 MG Tablet PO (10:41)
[2022-02-09] MEDS: Senna/Docusate Sodium 1 Tablet 2 TABLET PO ×2 (10:41→21:01)
[2022-02-09] MEDS: Famotidine 20 MG Tablet PO (10:41)
[2022-02-09] MEDS: Amiodarone 200 MG Tablet 100 MG PO (10:41)
[2022-02-09] MEDS: Rivaroxaban 20 MG Tablet PO (10:41)
--- NOTE | 2022-02-09 11:55 | CASEMGMT ---
CHANA FRAZIER Assessment: Face to Face with pt for initial transition planning/care coordination assessment. CHANA FRAZIER introduced self and role at [facility], pt voices understanding and consents to assessment. Pt is A/O x4 and answers all questions appropriately at this time. Pt sitting up in chair in no distress. Care providers, pharmacy, and demographics verified/updated. Admitting Dx: L TK with JARRED PCP:Mihir Specialists:Tasia, ortho; [place], cardio Preferred Pharmacy: [facility] Retail Insurance: MCR, MMO Prescription Benefit: yes LW/HPOA: Pt has a LW/DPOA on file at [facility]. His DPOA is his estate planning attorney Latrice Lai. LNOK: Jason Stevens, estate planning attorney Living Arrangements: Pt lives alone in a single story house with 2.5 steps to enter without a rail. Pt reports he is I in ADL's. Pt states he has no issues in getting into the home. He states he does not feel he can go home and wants to stay over the weekend. Transportation: Pt does not drive. He uses a taxi. DME/HHC/SNF: Pt has a cane and FWW at home. Pt denies hx of HHC or SNF stays. Pt states he was told that he can go to [facility]. Pt states that he did well with therapy today. Reviewed therapy notes that pt did ambulate approx 205 feet SBA. Pt ready for second therapy session today. Contacted to make aware of pt progress. There is concern of pt being home by himself alone after major surgery. Notified HUMAN RESOURCES BENEFITS ASSISTANT, [facility] has a bed available tomorrow. Pt states no further concerns/needs. CM to follow. Advised pt to ask CM if any further question/concerns/needs arise, voices understanding. Pt Goal: [facility] TCU Plan: [facility]
--- NOTE | 2022-02-09 12:14 | CASEMGMT ---
CHANA FRAZIER in to discuss [facility] form with patient. CHANA FRAZIER explained [facility] form, patient voiced understanding initially but when asked for signature, pt states he does not understand. Re explained form. Pt refused to sign form. Notated this on form and provided pt with a copy. Patient had no further questions or concerns at this time.
--- NOTE | 2022-02-09 15:00 | CASEMGMT ---
Social Work Note SW received referral to SNF placement. Pt's preferred provider is [facility]. SW provided RN CM with a list of SNF providers including quality and resource use data and consistent with the patient?s preferred geographic region, medical needs, and insurance network who provided to pt. ROMAN placed a call to Gabriela with TCU, TCU is able to accept pt Saturday. RN CM informed pt that he has been accepted to TCU. Pt will need COVID test on day of discharge. Green sheet on chart. Plan: TCU Saturday Kate Kitchen MSW, [employer]
[2022-02-09 15:40] VITALS: BP 113/70; PULSE 70; RESP 16; TEMP 37; O2SAT 100
[2022-02-09 20:44] VITALS: BP 116/70; PULSE 70; RESP 18; TEMP 36.8; O2SAT 95
[2022-02-09] MEDS: Atorvastatin Calcium 10 MG Tablet PO (21:00)
[2022-02-10] MEDS: traMADol 50 MG Tablet PO ×2 (04:02→10:40)
[2022-02-10 04:05] VITALS: BP 130/71; PULSE 75; RESP 18; TEMP 36.8; O2SAT 95
[2022-02-10] MEDS: Ondansetron 4 MG/2 ML Vial IV (05:46)
[2022-02-10] MEDS: 0.9% Saline Lock 10 ML Syringe IV (05:47)
[2022-02-10 05:51] VITALS: TEMP 36.4
[2022-02-10] MEDS: Acetaminophen 500 MG Tablet 1000 MG PO ×2 (05:59→14:10)
[2022-02-10 06:39] LABS: Hematocrit 35.8 % (40-54); Hemoglobin 11.8 g/dL (13.0-16.5); Mean Corpuscular Hgb 30.8 pg (27.0-32.0); Mean Corpuscular Volume 93.5 fL (80-94); Platelet Count 121 K/mm3 (150-450); RBC Distribution Width CV 13.2 % (11.6-14.6); Red Blood Count 3.83 M/mm3 (4.6-6.2); White Blood Count 9.2 K/mm3 (4.4-11.0)
[2022-02-10 10:00] VITALS: BP 132/64; PULSE 69; RESP 16; TEMP 36.8; O2SAT 100
[2022-02-10] MEDS: Escitalopram Oxalate 20 MG Tablet PO (10:32)
[2022-02-10] MEDS: Amiodarone 200 MG Tablet 100 MG PO (10:32)
[2022-02-10] MEDS: Famotidine 20 MG Tablet PO (10:32)
[2022-02-10] MEDS: Senna/Docusate Sodium 1 Tablet 2 TABLET PO (10:32)
[2022-02-10] MEDS: Ensure Surgery 237 ML LIQUID PO ×2 (10:40→14:11)
--- NOTE | 2022-02-10 12:15 | PCM.TXEXTCAR ---
Diet 02/08/22 16:49 Diet: Regular - General Is pt able to select menu?: Yes Wound(s) left knee: Wound Type: Surgical Incision Therapies Weight Bearing: Weight bearing as tolerated Problem/Diagnosis (1) Unilateral primary osteoarthritis, left knee: Status: Acute Allergies/Procedures Done in Hospital Allergies No Known Allergies Allergy (Verified 02/08/22 06:06) Type of Care/Length of Stay Estimated LOS: Convalescent Care Less Than 30 days Type of Care Needed: Skilled Rehab Potential: Good Prognosis: Good Additional Orders/Day of Discharge Day of Discharge: 02/10/22 Discharge Plan Admission Admit Date/Time: 02/08/22 10:27 Attending Provider: Roman Dozier Primary Care Provider: Sree Ash Chi Instructions Additional Instructions / Restrictions: Follow preprinted instructions from your surgeons office. Discharge Orders/Prescriptions Prescriptions: New tramadol 50 mg Tablet 50 mg PO Q6H 7 Days Qty: 28 RF: 0 acetaminophen 500 mg Tablet 1,000 mg PO Q8 7 Days Qty: 42 RF: 0 famotidine 20 mg Tablet 20 mg PO DAILY 7 Days Qty: 7 RF: 0 oxycodone 5 mg Tablet 5 - 10 mg PO Q4H PRN PRN (Reason: Pain Score 4-10) 7 Days Qty: 56 RF: 0 Continued escitalopram oxalate [Lexapro] 10 mg tablet 20 mg PO DAILY RF: 0 Xarelto 20 mg tablet 20 mg PO DAILY@1700 RF: 0 albuterol sulfate 90 mcg/actuation Hfa Aerosol Inhaler 1 inh INHALATION Q6H PRN (Reason: SOB) RF: 0 simvastatin 20 mg tablet 20 mg PO QHS Qty: 90 RF: 4 amiodarone 200 mg tablet 100 mg PO DAILY Qty: 45 RF: 3 cholecalciferol (vitamin D3) 25 mcg (1,000 unit) capsule 25 mcg PO DAILY Qty: 90 RF: 3 Discontinued acetaminophen [Tylenol Arthritis Pain] 650 mg tablet extended release 650 mg PO Q12H RF: 0 Other Ambulatory Orders: Prothrombin Time w/INR (Routine) Timeframe: 20220208 Facility: [facility] - Location: Laboratory Ordered By: Dr. Yoni Edwards 12 Lead EKG (Routine) Timeframe: 20220126 Location: None Selected Ordered By: Dr. Roman Dozier Referrals / Follow Up: Roman Dozier DO [STAFF PHYSICIAN] - Within 2 Weeks Sree Ash Chi, MD [Primary Care Provider] - Disposition Disposition (needs filled in before D/C Order can be placed): [facility]
--- NOTE | 2022-02-10 12:16 | DS.PCM_ITS ---
Providers Date of Admission: 02/08/22 Primary Care Physician: Dr. Sree Ash MD Reason For Visit: LT TOTAL KNEE W JARRED Diagnosis Discharge Diagnosis (1) Unilateral primary osteoarthritis, left knee: Status: Acute Code(s): M17.12 - Unilateral primary osteoarthritis, left knee Plan: POD#2 s/p POD#2 s/p left robotic assisted TKA - Pain control - PT/OT-weightbearing and range of motion as tolerated left lower extremity - DVT PPX -Multimodal with SCDjanis, BHAVNA warner, early mobilization, Xarelto - Case management - D/C planning. Plan for TCU today due to no help at home. Patient ambulating well. Stable for discharge once bed becomes available. Medications at Discharge Home Medications amiodarone 200 mg tablet 100 mg PO DAILY #45 tab 01/09/21 simvastatin 20 mg tablet 20 mg PO QHS #90 tab 01/09/21 escitalopram oxalate 10 mg tablet 20 mg PO DAILY tab 05/15/21 cholecalciferol (vitamin D3) 25 mcg (1,000 unit) capsule 25 mcg PO DAILY #90 cap 12/01/21 Xarelto 20 mg PO DAILY@1700 01/25/22 albuterol sulfate 1 inh INHALATION Q6H PRN 01/25/22 acetaminophen 1,000 mg PO Q8 7 Days #42 tab 02/10/22 famotidine 20 mg PO DAILY 7 Days #7 tab 02/10/22 oxycodone 5 - 10 mg PO Q4H PRN PRN 7 Days #56 tab 02/10/22 tramadol 50 mg PO Q6H 7 Days #28 tab 02/10/22 Hospital Course Summary of Care Provided Minutes Spent on Discharge: 20 Hospital Course: Patient underwent uncomplicated left total knee arthroplasty, robotic assisted on 02/08/2022. He worked very well with occupational and physical therapies. Due to no help at home or family in the area, patient was discharged to transitional care unit at [facility] on postoperative day #2 and a bed was available. No surgical or medical complications were encountered through the patient's stay. Physical Exam Narrative General - A&Ox3, NAD. VSS/AF Left lower extremity -incisional dressings shadowing noted. SILT Sural, Saphenous, SPN, DPN, Tibial N. distributions. DP, PT 2+. BCR. DF, PF, EHL 5/5. No calf TTP. Weight / BMI Weight Weight: 162 lb 7.691 oz Body Mass Index (BMI) 20.2 ABG / Lab / Microbiology Data Result Diagrams: 02/10/22 05:36 02/09/22 06:10 Laboratory: Laboratory Results - last 24 hr 02/10/22 05:36: WBC 9.2, RBC 3.83 L, Hgb 11.8 L, Hct 35.8 L, MCV 93.5, MCH 30.8, MCHC 33.0, RDW Std Deviation 45.0 H, RDW Coeff of Mary 13.2, Plt Count 121 L, MPV 11.0 Microbiology: Microbiology 02/10/22 11:00 Nasal Secretion SARS-CoV-2 Antigen (Rapid) - Final 01/26/22 12:13 Interface Orders Nasal Screen MRSA/MSSA - Final Meaningful Use Info Meaningful Use Diagnoses (Choose all that apply): None applicable Discharge Plan Admission Admit Date/Time: 02/08/22 10:27 Attending Provider: Roman Dozier Primary Care Provider: Sree Ash Chi Instructions Additional Instructions / Restrictions: Follow preprinted instructions from your surgeons office. Discharge Orders/Prescriptions Prescriptions: New tramadol 50 mg Tablet 50 mg PO Q6H 7 Days Qty: 28 RF: 0 acetaminophen 500 mg Tablet 1,000 mg PO Q8 7 Days Qty: 42 RF: 0 famotidine 20 mg Tablet 20 mg PO DAILY 7 Days Qty: 7 RF: 0 oxycodone 5 mg Tablet 5 - 10 mg PO Q4H PRN PRN (Reason: Pain Score 4-10) 7 Days Qty: 56 RF: 0 Continued escitalopram oxalate [Lexapro] 10 mg tablet 20 mg PO DAILY RF: 0 Xarelto 20 mg tablet 20 mg PO DAILY@1700 RF: 0 albuterol sulfate 90 mcg/actuation Hfa Aerosol Inhaler 1 inh INHALATION Q6H PRN (Reason: SOB) RF: 0 simvastatin 20 mg tablet 20 mg PO QHS Qty: 90 RF: 4 amiodarone 200 mg tablet 100 mg PO DAILY Qty: 45 RF: 3 cholecalciferol (vitamin D3) 25 mcg (1,000 unit) capsule 25 mcg PO DAILY Qty: 90 RF: 3 Discontinued acetaminophen [Tylenol Arthritis Pain] 650 mg tablet extended release 650 mg PO Q12H RF: 0 Other Ambulatory Orders: Prothrombin Time w/INR (Routine) Timeframe: 20220208 Facility: [facility] - Location: Laboratory Ordered By: Dr. Yoni Edwards 12 Lead EKG (Routine) Timeframe: 20220126 Location: None Selected Ordered By: Dr. Roman Dozier Referrals / Follow Up: Roman Dozier DO [STAFF PHYSICIAN] - Within 2 Weeks Sree Ash Chi, MD [Primary Care Provider] - Disposition Disposition (needs filled in before D/C Order can be placed): [facility]
[2022-02-10 14:12] VITALS: BP 120/73; PULSE 72; RESP 16; TEMP 36.7; O2SAT 97
== END 2022-02-10 15:50 | disposition skilled nursing facility (03) ==
LOC: SDC 12:31 → MS3 12:31
PROVIDERS: Anesthesiology; Admitting Provider Student in an Organized Health Care Education/Training Program; PCP Family Medicine Geriatric Medicine; Referring Provider Student in an Organized Health Care Education/Training Program; Visit Provider Student in an Organized Health Care Education/Training Program
PROC: 0SRD0JZ Replacement of Left Knee Joint with Synthetic Substitute, Open Approach (ICD-10-PCS; CPT 27447; principal; 2022-02-08 07:00)
DX: M17.12 Unilateral primary osteoarthritis, left knee (principal); J44.9 Chronic obstructive pulmonary disease, unspecified; I48.91 Unspecified atrial fibrillation; M21.162 Varus deformity, not elsewhere classified, left knee; E78.5 Hyperlipidemia, unspecified; Z79.899 Other long term (current) drug therapy; Z95.810 Presence of automatic (implantable) cardiac defibrillator; Z87.891 Personal history of nicotine dependence; K21.9 Gastro-esophageal reflux disease without esophagitis; F32.A Depression, unspecified; R94.31 Abnormal electrocardiogram [ECG] [EKG]
CPT/HCPCS: 27447; 01402; S2900; 64447; 36415; 36416; 71046; 80048; 80076; 83735; 85025; 85027; 85610; 85730; 87081; 87426; 88305; 88311; 93005; 96361; 96365; 96366; 96375; 97110; 97116; 97162; 97166; 97530; 97535; 99218; 99251; C1776; J7120; A4216; G0378; G0463; J2405

== ENCOUNTER 2022-02-10 16:05 | Inpatient (IN) | payer MEDICARE, OTHER, SELFPAY ==
[2022-02-10 16:13] VITALS: BP 136/61; PULSE 74; RESP 18; TEMP 36.5; O2SAT 92; BMI 21.1
--- NOTE | 2022-02-10 16:27 | HP.PCM_ITS ---
HPI - General General Date of Admission: 02/10/22 HPI Narrative 02/08/2022 BENITO HILL, is a 76 Male who presents with followin02/08/2022 Dr. Dozier performed cemented let knee arthroplasty. 02/09/2022 Tylenol, Tramadol, Oxycodone for pain. PT/OT. Recommend half-way facility, patient lives alone, no family in the area. 02/10/2022 Admit to TCU with debility, here for rehabilitation, strengthening, prior to discharge home alone. REPLACED BY [facility] Medical History Ambulates with cane Anemia Arthritis Cardiology follow-up encounter Cardiomyopathy Colitis Depression Gastric reflux GERD (gastroesophageal reflux disease) Hyperlipidemia Hypertension ICD (implantable cardioverter-defibrillator) in place Long-term use of high-risk medication Loose, teeth MVP (mitral valve prolapse) Nonrheumatic mitral (valve) prolapse Pacemaker Premature ventricular contraction Shortness of breath on exertion SVT (supraventricular tachycardia) Syncope Thoracic aortic aneurysm Thoracic aortic aneurysm without rupture Ventricular tachycardia Wears glasses Home Medications escitalopram oxalate 10 mg tablet 20 mg PO DAILY tab 05/15/21 [History Last Taken Unknown] Xarelto 20 mg PO DAILY@1700 01/25/22 [History Last Taken 02/03/22] albuterol sulfate 1 inh INHALATION Q6H PRN 01/25/22 [History Last Taken Unknown] acetaminophen 1,000 mg PO Q8 02/10/22 [History Last Taken Unknown] amiodarone 100 mg PO DAILY 02/10/22 [History Last Taken Unknown] cholecalciferol (vitamin D3) 25 mcg PO DAILY 02/10/22 [History Last Taken Unknown] famotidine 20 mg PO DAILY 02/10/22 [History Last Taken Unknown] oxycodone 10 mg PO Q6H PRN 7 Days #56 tab 02/10/22 [Rx Last Taken Unknown] simvastatin 20 mg PO QHS 02/10/22 [History Last Taken Unknown] tramadol 50 mg PO Q6H 7 Days #28 tab 02/10/22 [Rx Last Taken Unknown] Allergy/AdvReac Type Severity Reaction Status Date / Time No Known Allergies Allergy Verified 02/08/22 06:06 Family History Father Heart disease Sister Heart disease Brother Heart disease Surgical History History of bilateral cataract extraction History of partial nephrectomy (07/02/18) History of tonsillectomy Hx of atrioventricular node ablation Presence of cardiac defibrillator Social History (Updated 02/10/22 @ 16:[address] Sree Ash MD) household members: none Smoking Status: Former smoker how long ago did patient quit smokin years ago alcohol intake: never substance use type: does not use caffeine: Yes Type: coffee Number of servings: 2 ROS Constitutional Constitutional: Denies chills, fever(s) or weight gain ENT HEENT: Denies headache(s), nasal congestion or nasal discharge Cardiovascular Cardiovascular: Denies chest pain or palpitations Respiratory/Chest Respiratory/Chest: Denies cough, excessive phlegm production or shortness of breath with exertion Gastrointestinal Gastrointestinal: Denies abdominal pain, nausea or vomiting Genitourinary Genitourinary: Denies dysuria Musculoskeletal Musculoskeletal: Denies joint pain or joint swelling Integumentary Integumentary: Denies rash or wounds Neurologic Neurologic: Denies focal weakness, numbness or tingling Psychiatric Psychiatric: Denies anxiety, auditory hallucinations, depression, homicidal ideation or suicidal ideation Physical Exam Const alert General Appearance: cooperative HEENT normocephalic Eyes PERRL and EOMs intact bilaterally Neck supple, no JVD and no carotid bruits Resp normal respiratory effort, normal air movement and clear to auscultation bilaterally Cardio regular rate and regular rhythm GI normal to inspection, nondistended, normoactive bowel sounds, non-tender and non-distended Extremity normal capillary refill General Extremity: Negative for edema Skin no rashes or lesions noted General Skin Exam: no breakdown Psych affect normal Appearance: appropriate Results Lab / Micro Data Result Diagrams: 02/11/22 05:43 02/11/22 05:43 Assessment & Plan Assessment/Plan (1) Debility: (2) Osteoarthritis of left knee: (3) Osteoarthritis: (4) Chronic obstructive pulmonary disease: (5) Atrial fibrillation: (6) Hyperlipidemia: PLAN: 76 year old male with below past medical history hospitalized for left knee arthroplasty 02/08/[address] Dozier, admitted to TCU with sotero chandler, here for rehabilitation, strengthening, prior to discharge home alone. * Debility - PT/OT. * Pain - Tylenol 1000mg q8h, Tramadol 50mg q6h prn pain (4-5), Oxycodone 5mg q4h prn pain (6-10). * Bowel - Miralax 17gm twice daily, Senna/colace 2 tablets bid, Dulcolax 10mg daily prn. * Adult immunization - Administer prevnar 20, fluzone, covid19 vaccine as appropriate. * DVT prophylaxis - Not necessary, already on Xarelto. * COPD - Albuterol 1 puff q6h prn. * Atrial fibrillation - Amiodarone 100mg daily, Xarelto 20mg daily. * Hyperlipidemia - Atorvastatin 10mg qhs. * Vitamin D deficiency - D3 25mcg daily. * Depression - Lexapro 20mg daily, stable chronic jail use, GDR not recommended. * GERD - Famotidine 20mg daily.
[2022-02-10] MEDS: Polyethylene Glycol 3350 17 GM PACKET PO (18:09)
[2022-02-10] MEDS: Rivaroxaban 20 MG Tablet PO (18:09)
[2022-02-10] MEDS: Senna/Docusate Sodium 1 Tablet 2 TABLET PO (18:10)
[2022-02-10] MEDS: Atorvastatin Calcium 10 MG Tablet PO (21:15)
[2022-02-10] MEDS: Acetaminophen 500 MG Tablet 1000 MG PO (21:16)
[2022-02-11 05:59] LABS: Absolute Lymphocyte Count 0.74 X10^3/uL (0.83-4.51); Absolute Neutrophil Count 5.3 X10^3/uL (2.0-7.7); Basophil# 0.05 X10^3/uL; Basophil% 0.7 % (0-1); Eosinophil# 0.14 X10^3/uL; Hematocrit 33.4 % (40-54); Hemoglobin 11.2 g/dL (13.0-16.5); Lymphocyte # 0.74 X10^3/ul (0.83-4.51); Lymphocyte % 10.5 % (19-41); Mean Corp Hgb Conc 33.5 g/dL (32-36); Mean Corpuscular Hgb 31.4 pg (27.0-32.0); Mean Corpuscular Volume 93.6 fL (80-94); Mean Platelet Vol. 10.5 fl (6.2-12.0); Monocyte# 0.82 X10^3/uL; Monocyte% 11.6 % (0-10); NRBC Flagged by Analyzer 0 % (0-5); Neutrophil # 5.28 X10^3/uL (2.7-7.7); Neutrophil % 74.8 % (47-70); POSITIVE COUNT YES; Platelet Count 97 K/mm3 (150-450); RBC Distribution Width CV 13.1 % (11.6-14.6); RBC Distribution Width SD 45.1 fl (35.1-43.9); Red Blood Count 3.57 M/mm3 (4.6-6.2); White Blood Count 7.1 K/mm3 (4.4-11.0)
[2022-02-11 06:04] LABS: Differential Indicated SCAN CRITERIA MET
[2022-02-11 06:26] LABS: Anion Gap 2 (5-15); BUN 12 mg/dL (7-18); BUN/Creat Ratio 12.5 RATIO (10-20); Calcium,Total 8.8 mg/dL (8.5-10.1); Chloride 105 mmol/L (98-107); Creatinine, Serum 0.96 mg/dL (0.70-1.30); EST Glomerular Filtration Rate 81 mL/min (>60); Est Glom Filt Rate - Afr Amer 98 mL/min (>60); Estimated Creatinine Clearance 71.06 ml/min; Glucose 101 mg/dL (74-106); Potassium 3.8 mmol/L (3.5-5.1); Sodium Level 138 mmol/L (136-145)
[2022-02-11] MEDS: Polyethylene Glycol 3350 17 GM PACKET PO (06:28)
[2022-02-11] MEDS: Acetaminophen 500 MG Tablet 1000 MG PO ×3 (06:29→20:21)
[2022-02-11] MEDS: Amiodarone 200 MG Tablet 100 MG PO (06:30)
[2022-02-11] MEDS: Escitalopram Oxalate 20 MG Tablet PO (06:30)
[2022-02-11] MEDS: Senna/Docusate Sodium 1 Tablet 2 TABLET PO ×2 (06:30→17:30)
[2022-02-11] MEDS: Cholecalciferol (VIT D3) 25 MCG TABLET (1,000 UNITS) PO (06:30)
[2022-02-11] MEDS: Famotidine 20 MG Tablet PO (06:31)
[2022-02-11 06:33] VITALS: BP 117/68; PULSE 78
[2022-02-11 07:06] LABS: Differential Comment SCANNED; Platelet Estimate SLT DEC (ADEQ)
[2022-02-11 08:06] VITALS: PULSE 74; RESP 16; O2SAT 100
[2022-02-11] MEDS: Tuberculin,Purif.prot.deriv. 50 TU/ML Vial 0.1 ML ID (10:33)
[2022-02-11 15:38] VITALS: BP 120/66; PULSE 70; RESP 15; TEMP 36.8; O2SAT 97
[2022-02-11] MEDS: Rivaroxaban 20 MG Tablet PO (17:30)
[2022-02-11] MEDS: Atorvastatin Calcium 10 MG Tablet PO (20:22)
[2022-02-12] MEDS: Amiodarone 200 MG Tablet 100 MG PO (05:31)
[2022-02-12] MEDS: Acetaminophen 500 MG Tablet 1000 MG PO ×3 (05:31→21:05)
[2022-02-12] MEDS: Escitalopram Oxalate 20 MG Tablet PO (05:31)
[2022-02-12] MEDS: Cholecalciferol (VIT D3) 25 MCG TABLET (1,000 UNITS) PO (05:32)
[2022-02-12] MEDS: Senna/Docusate Sodium 1 Tablet 2 TABLET PO (05:32)
[2022-02-12] MEDS: Famotidine 20 MG Tablet PO (05:32)
--- NOTE | 2022-02-12 12:35 | MDS.RN ---
Discussed and explained purpose of Plan of Care Meeting. Resident states he does not want this meeting, and does not want Jason Stevens-contact notified of meeting.
[2022-02-12 14:17] VITALS: BP 106/55; PULSE 73; RESP 16; TEMP 36.1; O2SAT 97
[2022-02-12] MEDS: Rivaroxaban 20 MG Tablet PO (17:02)
[2022-02-12 21:05] VITALS: O2SAT 95
[2022-02-12] MEDS: MELATONIN 10 MG TABLET PO (21:05)
[2022-02-12] MEDS: Atorvastatin Calcium 10 MG Tablet PO (21:05)
[2022-02-13] MEDS: Cholecalciferol (VIT D3) 25 MCG TABLET (1,000 UNITS) PO (06:58)
[2022-02-13] MEDS: Acetaminophen 500 MG Tablet 1000 MG PO ×3 (06:58→20:39)
[2022-02-13] MEDS: Escitalopram Oxalate 20 MG Tablet PO (06:58)
[2022-02-13] MEDS: Famotidine 20 MG Tablet PO (06:58)
[2022-02-13] MEDS: Amiodarone 200 MG Tablet 100 MG PO (06:58)
[2022-02-13 10:30] VITALS: PULSE 73; RESP 18; O2SAT 98
--- NOTE | 2022-02-13 13:59 | CASEMGMT ---
Social Work Met with patient for initial assessment. Introduced self and role. Discussed code status and MOLST form. Pt unsure of his code status and wishes. States the DNR form was left in his room for him to discuss with his corporate associate attorney. Assisted in explaining the differences of all of the code status', but pt still unsure of decision. Explained pt will remain full code until he notifies nursing otherwise. Once he makes his decisions, SW can complete MOLST with him, if he chooses. Pt expressed understanding. Explained Medicare benefit. Encouraged to contact secondary insurance to ensure copay coverage. The goal is for pt to return home alone with 3 steps to enter. Discussed contacts for updates/assistance during stay. Pt denies contacts; States he only has his corporate associate attorney. Explored informal and formal supports. Pt wanted to ensure confidentially to disclose information. Confirmed confidentiality. Pt disclosed a legal history which impacts the lack of current support systems and current depressive state. Pt is managed by medications for mood and reports hx of counseling. Pt explained he initially was connected to [facility] getting services once/wk every other wk, but states that was not beneficial to his needs. He explained he was homeless for a brief time period and [facility] was assisting with housing. He was eventually able to return to his own house that was initially left in the care of his exwife until the finalized. Pt is no longer active with [facility] or another counseling center. Offered to provide resources. Pt explained he feels he would only get benefit from it if it was consistent each week and had someone to help him make good decisions. Because I had not made good/right decisions in my past as explained. Offered/explained [facility] IOP. Pt would consider and agreeable to referral to speak to someone about their program. SW clarified he is looking for a 'sponsor' like in AA. Pt confirmed and stated he had been going to AA for 20+ years but stopped in 2019 at the start of this legal hx, and when he went back to the morning meetings in [facility], people had bigger problems than me and I didn't want to listen to that. Pt stated his corporate associate attorney linked him to a , , Friends club that meets 2-3x/month. Commended pt on his motivation to get connected, gain relationships, focus on life goals and forward thinking. SW offered to continue to assist on any community resources that would interest pt. Explored hobbies/interests. Pt explained he enjoys woodworking and has shifted his focus to his woodshop in his basement now that the work on his house is completed. He intends to sell his items to the community. Commended pt. Pt states currently he is focused on his rehab and returning home safely. SW offered ongoing support and will follow for DC planning. Lyric Jung, KODI EARLW
[2022-02-13 14:09] VITALS: BP 115/63; PULSE 77; RESP 16; TEMP 36.3; O2SAT 98
[2022-02-13] MEDS: Rivaroxaban 20 MG Tablet PO (17:35)
[2022-02-13] MEDS: MELATONIN 10 MG TABLET PO (20:39)
[2022-02-13] MEDS: Atorvastatin Calcium 10 MG Tablet PO (20:39)
[2022-02-14] MEDS: Cholecalciferol (VIT D3) 25 MCG TABLET (1,000 UNITS) PO (05:12)
[2022-02-14] MEDS: Amiodarone 200 MG Tablet 100 MG PO (05:12)
[2022-02-14] MEDS: Acetaminophen 500 MG Tablet 1000 MG PO ×3 (05:12→21:21)
[2022-02-14] MEDS: Famotidine 20 MG Tablet PO (05:12)
[2022-02-14] MEDS: Escitalopram Oxalate 20 MG Tablet PO (05:12)
--- NOTE | 2022-02-14 10:53 | PHA.CONS1_ITS ---
Progress Note - Pharmacy Subjective: [] TCU Admission Objective: Allergies No Known Allergies Allergy (Verified 02/08/22 06:06) Current Medications Generic Name Dose Route Start Last Admin Trade Name Vu PRN Reason Stop Dose Admin Acetaminophen 1,000 mg 02/10/22 22:00 02/14/22 05:12 Acetaminophen 500 Mg Tablet PO 1,000 mg Q8 BRAULIO Administration Albuterol Sulfate 1 puff 02/10/22 16:14 Albuterol Sulfate 8 Gm Inhaler (60 Puffs) INHALATION Q6H PRN PRN SHORTNESS OF BREATH Amiodarone HCl 100 mg 02/11/22 06:00 02/14/22 05:12 Amiodarone 200 Mg Tablet PO 100 mg DAILY BRAULIO Administration Atorvastatin Calcium 10 mg 02/10/22 22:00 02/13/22 20:39 Atorvastatin Calcium 10 Mg Tablet PO 10 mg QHS BRAULIO Administration Bisacodyl 10 mg 02/10/22 16:38 Bisacodyl 5 Mg Tablet PO DAILY PRN Constipation Cholecalciferol 25 mcg 02/11/22 06:00 02/14/22 05:12 Cholecalciferol (Vit D3) 25 Mcg Tablet (1,000 Units) PO 25 mcg DAILY BRAULIO Administration Escitalopram Oxalate 20 mg 02/11/22 06:00 02/14/22 05:12 Escitalopram Oxalate 20 Mg Tablet PO 20 mg DAILY [facility] Administration Famotidine 20 mg 02/11/22 06:00 02/14/22 05:12 Famotidine 20 Mg Tablet PO 20 mg DAILY BRAULIO Administration Melatonin 10 mg 02/12/22 22:00 02/13/22 20:39 Melatonin 10 Mg Tablet PO 10 mg QHS [facility] Administration Oxycodone HCl 5 mg 02/10/22 16:39 Oxycodone 5 Mg Tablet PO Q4H PRN PRN Pain Score 6-10 Polyethylene Glycol 17 gm 02/10/22 18:00 02/14/22 05:14 Polyethylene Glycol 3350 17 Gm Packet PO Not Given BID [facility] Rivaroxaban 20 mg 02/10/22 17:00 02/13/22 17:35 Rivaroxaban 20 Mg Tablet PO 20 mg DAILY@1700 [facility] Administration Senna/Docusate Sodium 2 tablet 02/10/22 18:00 02/14/22 05:14 Senna/Docusate Sodium 1 Tablet PO Not Given BID [facility] Tramadol HCl 50 mg 02/10/22 16:39 Tramadol 50 Mg Tablet PO Q6H PRN PRN Pain Score 4-5 Tuberculin PPD 0.1 ml 02/18/22 10:00 Tuberculin,Purif.Prot.Deriv. 50 Tu/Ml Vial ID 02/18/22 10:01 X1 ONE Problem List (Last Reviewed 02/10/22 @ 16:[address] Sree Ash MD) Hyperlipidemia (Acute) Atrial fibrillation (Acute) Chronic obstructive pulmonary disease (Chronic) Osteoarthritis (Acute) Osteoarthritis of left knee (Acute) Debility (Acute) Vital Signs Temp Pulse Resp BP Pulse Ox 97.4 F L 77 16 115/63 98 02/13/22 14:09 02/13/22 14:09 02/13/22 14:09 02/13/22 14:09 02/13/22 14:09 Oxygen Delivery Method Room Air Weight: 71.894 kg Body Mass Index (BMI) 21.1 Sodium 138 mmol/L (136-145) 02/11/22 05:43 Potassium 3.8 mmol/L (3.5-5.1) 02/11/22 05:43 Chloride 105 mmol/L (98-107) 02/11/22 05:43 Carbon Dioxide 31.0 mmol/L (21.0-32.0) 02/11/22 05:43 Anion Gap 2 (5-15) L 02/11/22 05:43 BUN 12 mg/dL (7-18) 02/11/22 05:43 Creatinine 0.96 mg/dL (0.70-1.30) 02/11/22 05:43 Est GFR (MDRD) Af Amer 98 mL/min (>60) 02/11/22 05:43 Est GFR (MDRD) Non-Af 81 mL/min (>60) 02/11/22 05:43 BUN/Creatinine Ratio 12.5 RATIO (10-20) 02/11/22 05:43 Glucose 101 mg/dL (74-106) 02/11/22 05:43 Assessment/Plan: 1) Pain: Acetaminophen 1000mg po q8h scheduled, Oxycodone 5mg po q4h prn for pain 6-10, Tramadol 50mg po q6h prn for pain 4-5. Please continue to monitor prn usage and for signs/symptoms of increased pain. --PRN note: There have been zero oxycodone, and zero tramadol administrations to date 2) Hyperlipidemia: Atorvastatin 10mg po qhs. Pt's LFTs and Lipid panel are within normal limits. Please continue to monitor. 3) GERD: Famotidine 20mg po daily. Please continue to monitor for signs/symptoms of GERD. --Note: Pt's SrCr is 0.96, and CrCl is 71mls/min. Dose is appropriate for renal function 4) AFib: Amiodarone 100mg po daily, Xarelto 20mg po with dinner. Please continue to monitor for signs/symptoms of bleeding/bruising. Pt's average pulse rate is 74.125, pt's pulse rhythm is regular (1 irregular), and pulse strength is normal (2+). Please continue to monitor pt's vitals Psychotropic Medications: Melatonin 10mg po qhs for sleep. Medication due for a GDR 04/2022 unless clinically contraindicated Lexapro 20mg po daily for depression. See physicians note in H+P about GDR. Unnecessary Medications: *Bowel Regimen: Bisacodyl 10mg po daily prn for constipation, Miralax 17gm po bid, Senna/Docusate 2 tablets po bid. Pt has refused 6 of 8 Miralax doses, and 4 of 8 Senna/Docusate doses. Please consider changing Miralax and/or Senna/D ocusate to prn use due to pt refusal. Thanks Date of Note:: 02/14/22
[2022-02-14 15:37] VITALS: BP 122/69; PULSE 70; RESP 16; TEMP 36.9; O2SAT 98
--- NOTE | 2022-02-14 16:41 | CASEMGMT ---
Addendum entered by Lyric Jung 02/15/22 16:41: Received return call from Mark that he will visit pt on 02/20. Original Note: Social Work Referral made to Mark at [facility] to visit pt prior to DC. KODI LentzW
[2022-02-14] MEDS: Rivaroxaban 20 MG Tablet PO (18:37)
[2022-02-14] MEDS: Atorvastatin Calcium 10 MG Tablet PO (21:21)
[2022-02-14] MEDS: MELATONIN 10 MG TABLET PO (21:21)
[2022-02-15] MEDS: Escitalopram Oxalate 20 MG Tablet PO (06:23)
[2022-02-15] MEDS: Cholecalciferol (VIT D3) 25 MCG TABLET (1,000 UNITS) PO (06:23)
[2022-02-15] MEDS: Amiodarone 200 MG Tablet 100 MG PO (06:23)
[2022-02-15] MEDS: Famotidine 20 MG Tablet PO (06:23)
[2022-02-15] MEDS: Acetaminophen 500 MG Tablet 1000 MG PO ×3 (06:24→21:37)
[2022-02-15] MEDS: Senna/Docusate Sodium 1 Tablet 2 TABLET PO (06:39)
[2022-02-15 10:20] VITALS: PULSE 84; RESP 18; O2SAT 98
[2022-02-15] MEDS: traMADol 50 MG Tablet PO (10:39)
--- NOTE | 2022-02-15 11:30 | NURSING ---
SURGICAL MEPILEXS ON LEFT KNEE REMOVED PER DR. EDWARDS. MODERATE OLD DRAINAGE. 30 LIANG TO KNEE AND 5 LIANG TO LOPEZ. KNEE WARM/BRUISED AND SLIGHTLY RED WITH SWELLING NONPITTING. AREAS CLEANED AND ABD APPLIED TO AREAS AND ICE TO KNEE. RN AWARE.
--- NOTE | 2022-02-15 15:25 | MDS.RN ---
Completed pain interview for LEONEL 02/17/22
[2022-02-15 15:29] VITALS: BP 110/65; PULSE 85; RESP 18; TEMP 36.3; O2SAT 97
[2022-02-15] MEDS: Rivaroxaban 20 MG Tablet PO (17:34)
[2022-02-15] MEDS: MELATONIN 10 MG TABLET PO (21:37)
[2022-02-15] MEDS: Atorvastatin Calcium 10 MG Tablet PO (21:37)
[2022-02-16] MEDS: Cholecalciferol (VIT D3) 25 MCG TABLET (1,000 UNITS) PO (05:51)
[2022-02-16] MEDS: Amiodarone 200 MG Tablet 100 MG PO (05:51)
[2022-02-16] MEDS: Famotidine 20 MG Tablet PO (05:51)
[2022-02-16] MEDS: Escitalopram Oxalate 20 MG Tablet PO (05:51)
[2022-02-16] MEDS: Acetaminophen 500 MG Tablet 1000 MG PO ×3 (05:51→20:21)
[2022-02-16 05:53] VITALS: BP 137/64; PULSE 68
--- NOTE | 2022-02-16 09:34 | CASEMGMT ---
Social Work BIMS and PHQ-9 completed for MDS assessment. Lyric Jung, APPLICATION SECURITY CONSULTANT WATCH CASER
[2022-02-16] MEDS: traMADol 50 MG Tablet PO (11:26)
[2022-02-16 13:39] VITALS: BP 111/66; PULSE 70; RESP 16; TEMP 36.2; O2SAT 96
[2022-02-16] MEDS: Rivaroxaban 20 MG Tablet PO (16:20)
[2022-02-16] MEDS: MELATONIN 10 MG TABLET PO (20:21)
[2022-02-16] MEDS: Atorvastatin Calcium 10 MG Tablet PO (20:21)
[2022-02-17] MEDS: Amiodarone 200 MG Tablet 100 MG PO (05:22)
[2022-02-17] MEDS: Escitalopram Oxalate 20 MG Tablet PO (05:22)
[2022-02-17] MEDS: Famotidine 20 MG Tablet PO (05:23)
[2022-02-17] MEDS: Cholecalciferol (VIT D3) 25 MCG TABLET (1,000 UNITS) PO (05:23)
[2022-02-17] MEDS: Acetaminophen 500 MG Tablet 1000 MG PO ×3 (05:24→21:53)
[2022-02-17] MEDS: Rivaroxaban 20 MG Tablet PO (17:24)
[2022-02-17 17:25] VITALS: BP 117/69; PULSE 71; RESP 16; TEMP 36.6; O2SAT 98
[2022-02-17] MEDS: Atorvastatin Calcium 10 MG Tablet PO (21:53)
[2022-02-17] MEDS: MELATONIN 10 MG TABLET PO (21:53)
[2022-02-18] MEDS: Acetaminophen 500 MG Tablet 1000 MG PO ×3 (05:27→21:55)
[2022-02-18] MEDS: Escitalopram Oxalate 20 MG Tablet PO (05:27)
[2022-02-18] MEDS: Famotidine 20 MG Tablet PO (05:28)
[2022-02-18] MEDS: Cholecalciferol (VIT D3) 25 MCG TABLET (1,000 UNITS) PO (05:28)
[2022-02-18] MEDS: Amiodarone 200 MG Tablet 100 MG PO (05:28)
[2022-02-18 05:30] VITALS: BP 132/69; PULSE 79
[2022-02-18 07:21] LABS: Absolute Lymphocyte Count 0.98 X10^3/uL (0.83-4.51); Absolute Neutrophil Count 3.2 X10^3/uL (2.0-7.7); Basophil# 0.05 X10^3/uL; Eosinophil# 0.28 X10^3/uL; Eosinophils% 5.5 % (0-5); Hematocrit 34.9 % (40-54); Hemoglobin 11.5 g/dL (13.0-16.5); Lymphocyte # 0.98 X10^3/ul (0.83-4.51); Lymphocyte % 19.3 % (19-41); Mean Corpuscular Hgb 30.3 pg (27.0-32.0); Mean Corpuscular Volume 91.8 fL (80-94); Monocyte% 9.9 % (0-10); NRBC Flagged by Analyzer 0 % (0-5); Neutrophil # 3.24 X10^3/uL (2.7-7.7); Neutrophil % 63.9 % (47-70); Platelet Count 151 K/mm3 (150-450); RBC Distribution Width CV 12.8 % (11.6-14.6); RBC Distribution Width SD 43.2 fl (35.1-43.9); White Blood Count 5.1 K/mm3 (4.4-11.0)
[2022-02-18 07:42] LABS: Anion Gap 3 (5-15); BUN 20 mg/dL (7-18); Chloride 106 mmol/L (98-107); Creatinine, Serum 1.11 mg/dL (0.70-1.30); EST Glomerular Filtration Rate 68 mL/min (>60); Est Glom Filt Rate - Afr Amer 83 mL/min (>60); Estimated Creatinine Clearance 57.57 ml/min; Glucose 96 mg/dL (74-106); Potassium 3.5 mmol/L (3.5-5.1); Sodium Level 136 mmol/L (136-145)
[2022-02-18] MEDS: Tuberculin,Purif.prot.deriv. 50 TU/ML Vial 0.1 ML ID (10:40)
[2022-02-18 10:55] VITALS: O2SAT 98
[2022-02-18] MEDS: Albuterol Sulfate 8 gm Inhaler (60 puffs) 2 PUFF INHALATION ×2 (11:14→21:55)
[2022-02-18 16:00] VITALS: BP 123/68; PULSE 69; RESP 16; TEMP 36.1; O2SAT 99
[2022-02-18] MEDS: Rivaroxaban 20 MG Tablet PO (18:40)
[2022-02-18] MEDS: MELATONIN 10 MG TABLET PO (21:56)
[2022-02-18] MEDS: Atorvastatin Calcium 10 MG Tablet PO (21:56)
[2022-02-19] MEDS: traMADol 50 MG Tablet PO ×2 (00:03→20:16)
[2022-02-19] MEDS: Cholecalciferol (VIT D3) 25 MCG TABLET (1,000 UNITS) PO (05:41)
[2022-02-19] MEDS: Escitalopram Oxalate 20 MG Tablet PO (05:41)
[2022-02-19] MEDS: Famotidine 20 MG Tablet PO (05:41)
[2022-02-19] MEDS: Acetaminophen 500 MG Tablet 1000 MG PO ×3 (05:42→20:15)
[2022-02-19] MEDS: Amiodarone 200 MG Tablet 100 MG PO (05:42)
[2022-02-19 05:45] VITALS: BP 119/70; PULSE 75
[2022-02-19] MEDS: Albuterol Sulfate 8 gm Inhaler (60 puffs) 2 PUFF INHALATION ×2 (08:33→20:15)
--- NOTE | 2022-02-19 09:56 | NURSING ---
PT REQUESTING TO BE D/C ON 02/[address] APPOINTMENT. GONZALEZ,LEADER WRITER NOTIFIED.
--- NOTE | 2022-02-19 11:31 | NURSING ---
Wheelchair Van Operator First Responder Note: Interview and Section F of MDS complete.
--- NOTE | 2022-02-19 14:21 | CASEMGMT ---
Social Work Spoke with pt about request for DC plans. Pt requesting to DC after 's appt on 02/23. SW to discuss with IDT and follow up with pt. Spoke with IDT about DC 02/23. All agreed and recommending outpatient therapy PT/OT. Spoke with pt on above. Planned DC 02/23. Nursing to DC prior to picking tech for appt at 8:30 am, and [facility] Van to picking tech from appt to take home. Pt appreciative. Pt prefers [facility] outpatient therapy because he can get [facility] transport and does not like using his taxi cab passes to [facility]. Pt referred to [facility] PT/OT and conferred with [facility] transport. Updated pt [facility] will be visiting pt in the afternoon 02/20 to discuss their program. Pt expressed great appreciation for this worker. Plan: DC home 02/23, [facility] PT/OT, no CATARINA Jung, KODI MATHEW
[2022-02-19 14:24] VITALS: BP 109/60; PULSE 72; RESP 18; TEMP 36.4; O2SAT 98
[2022-02-19] MEDS: Rivaroxaban 20 MG Tablet PO (17:27)
--- NOTE | 2022-02-19 19:09 | DS.PCM_ITS ---
Providers Date of Admission: 02/10/22 Primary Care Physician: Dr. Sree Ash MD Reason For Visit: LEFT TOTAL KNEE Diagnosis Discharge Diagnosis (1) Debility: Status: Acute Code(s): R53.81 - Other malaise (2) Osteoarthritis of left knee: Status: Acute Code(s): M17.12 - Unilateral primary osteoarthritis, left knee (3) Osteoarthritis: Status: Acute Code(s): M19.90 - Unspecified osteoarthritis, unspecified site (4) Chronic obstructive pulmonary disease: Status: Chronic Code(s): J44.9 - Chronic obstructive pulmonary disease, unspecified (5) Atrial fibrillation: Status: Acute Code(s): I48.91 - Unspecified atrial fibrillation (6) Hyperlipidemia: Status: Acute Code(s): E78.5 - Hyperlipidemia, unspecified Medications at Discharge Home Medications escitalopram oxalate 10 mg tablet 20 mg PO DAILY tab 05/15/21 Xarelto 20 mg PO DAILY@1700 01/25/22 albuterol sulfate 1 inh INHALATION Q6H PRN 01/25/22 acetaminophen 1,000 mg PO Q8 02/10/22 amiodarone 100 mg PO DAILY 02/10/22 cholecalciferol (vitamin D3) 25 mcg PO DAILY 02/10/22 simvastatin 20 mg PO QHS 02/10/22 albuterol sulfate [Ventolin HFA] 2 puff INHALATION Q4H PRN PRN #0 g 02/19/22 melatonin 10 mg PO QHS #0 tab 02/19/22 polyethylene glycol 3350 17 g PO BID 30 Days #30 ea 02/19/22 sennosides-docusate sodium [Stool Softener-Stimulant Laxat] 2 tab PO BID 30 Days #120 tab 02/19/22 tramadol 50 mg PO Q6H PRN PRN 7 Days #28 tab 02/19/22 Hospital Course Operations total knee replacement (Left.) Procedures None Summary of Care Provided Minutes Spent on Discharge: 35 Hospital Course: 76 year old male with below past medical history hospitalized for left knee arthroplasty 02/08/[address] Dozier, admitted to TCU with debility, here for rehabilitation, strengthening, prior to discharge home alone. Discharge home alone 02/23/2022, [facility] PT/OT, no durable medical equipment. Physical Exam Const alert General Appearance: cooperative HEENT normocephalic Eyes PERRL and EOMs intact bilaterally Neck supple, no JVD and no carotid bruits Resp normal respiratory effort, normal air movement and clear to auscultation bilaterally Cardio regular rate and regular rhythm GI normal to inspection, nondistended, normoactive bowel sounds, non-tender and non-distended Extremity normal capillary refill General Extremity: Negative for edema Skin no rashes or lesions noted General Skin Exam: no breakdown Psych affect normal Appearance: appropriate Weight / BMI Weight Weight: 71.894 kg Body Mass Index (BMI) 21.1 ABG / Lab / Microbiology Data Result Diagrams: 02/18/22 06:54 02/18/22 06:54 Microbiology: Microbiology 02/17/22 05:21 Nasal Secretion SARS-CoV-2 Antigen (Rapid) - Final D/C Instructions Discharge Diet: No restrictions Discharge Activity: Return to Normal Activity, May Shower and Use Walker Weight Bearing Status: Weight bearing as tolerated Call your doctor if you observe: Fever of 101 or Higher, Inability to urinate, I nability to have a bowel movement, Shortness of breath, Dizziness, Fainting spells, Swelling in the ankles, Chest pain and Uncontrolled pain Additional Instructions: Discharge home alone 02/23/2022, [facility] PT/OT, no durable medical equipment. Please Follow Up With: Roman Dozier DO When: As scheduled. Meaningful Use Info Meaningful Use Diagnoses (Choose all that apply): None applicable Discharge Plan Admission Admit Date/Time: 02/10/22 16:05 Primary Reason for Your Visit: Debility. Attending Provider: Sree Ash Chi Primary Care Provider: Sree Ash Chi Instructions Additional Instructions / Restrictions: Discharge home alone 02/23/2022, [facility] PT/OT, no durable medical equipment. Discharge Orders/Prescriptions Prescriptions: New albuterol sulfate [Ventolin HFA] 90 mcg/actuation Hfa Aerosol Inhaler 2 puff inhalation Q4H PRN PRN (Reason: SOB &/OR WHEEZING) Qty: 0 RF: 0 polyethylene glycol 3350 17 gram Powder In Packet 17 g PO BID 30 Days Qty: 30 RF: 0 sennosides-docusate sodium [Stool Softener-Stimulant Laxat] 8.6-50 mg Tablet 2 tab PO BID 30 Days Qty: 120 RF: 0 tramadol 50 mg Tablet 50 mg PO Q6H PRN PRN (Reason: Pain Score 4-5) 7 Days Qty: 28 RF: 0 melatonin 10 mg Tablet, Sublingual 10 mg PO QHS Qty: 0 RF: 0 Continued escitalopram oxalate [Lexapro] 10 mg tablet 20 mg PO DAILY RF: 0 Xarelto 20 mg tablet 20 mg PO DAILY@1700 RF: 0 albuterol sulfate 90 mcg/actuation Hfa Aerosol Inhaler 1 inh INHALATION Q6H PRN (Reason: SOB) RF: 0 amiodarone 200 mg tablet 100 mg PO DAILY RF: 0 acetaminophen 500 mg tablet 1,000 mg PO Q8 RF: 0 simvastatin 20 mg tablet 20 mg PO QHS RF: 0 cholecalciferol (vitamin D3) 25 mcg (1,000 unit) capsule 25 mcg PO DAILY RF: 0 Discontinued oxycodone 5 mg tablet 10 mg PO Q6H PRN (Reason: pain) 7 Days Qty: 56 RF: 0 tramadol 50 mg tablet 50 mg PO Q6H 7 Days Qty: 28 RF: 0 famotidine 20 mg tablet 20 mg PO DAILY RF: 0 Referrals / Follow Up: Sree Ash Chi, MD [Primary Care Provider] - Disposition Disposition (needs filled in before D/C Order can be placed): Home, Self Care
[2022-02-19] MEDS: MELATONIN 10 MG TABLET PO (20:18)
[2022-02-19] MEDS: Atorvastatin Calcium 10 MG Tablet PO (20:18)
[2022-02-20] MEDS: Amiodarone 200 MG Tablet 100 MG PO (06:51)
[2022-02-20] MEDS: Acetaminophen 500 MG Tablet 1000 MG PO ×3 (06:51→20:02)
[2022-02-20] MEDS: Famotidine 20 MG Tablet PO (06:52)
[2022-02-20] MEDS: Escitalopram Oxalate 20 MG Tablet PO (06:52)
[2022-02-20] MEDS: Cholecalciferol (VIT D3) 25 MCG TABLET (1,000 UNITS) PO (06:52)
[2022-02-20 08:50] VITALS: PULSE 80; RESP 18; O2SAT 97
[2022-02-20] MEDS: oxyCODONE 5 MG Tablet PO (11:41)
[2022-02-20] MEDS: Albuterol Sulfate 8 gm Inhaler (60 puffs) 2 PUFF INHALATION (13:30)
[2022-02-20 14:08] VITALS: BP 102/61; PULSE 69; RESP 16; TEMP 36.4; O2SAT 98
--- NOTE | 2022-02-20 14:54 | BH.NOTE ---
BH: Inpatient Note - Notes Behavioral Health Inpatient Note: 02/20/22 14:54 Referral from [facility] to discuss outpatient programs. Pt reports hx of Depression and Alcohol Abuse (full remission, 35 years). Previous individual counseling through [facility] bi-monthly with last session in 08/2020. Pt states that counseling was not beneficial she would just agree with me. States that he needs someone to help him make good decisions because his decisions got him in trouble in the past. Vague regarding his past bad decisions. When asked what he is looking for in a counselor he remarked that he would like someone who tells him what to do. Also reports that he would like someone he can talk too for more than an hour like go out to dinner and call each other. Pt may be looking for more of a sponsor for mental health or pool lifeguard. After further discussion it would seem like pt is lonely and looking for more social interaction on my own terms. States that he is quiet and shy and prefers to keep to himself however at times is lonely. He denies overwhelming depression, anxiety, or distress. Limited support. Decreased sleep, low energy, and low motivation. Denies suicidal ideations, plan, or intent. Denies panic attacks or overwhelming anxiety.Hopeful and future-oriented. Looking forwards to less knee pain after his knee replacement and getting back to his hobbies of planting and woodworking. He is 35 years sober and occasionally attends AA meetings. He also gets social support from evangelical and another support group. He is not interested in pursuing individual counseling don't want to pay to talk and appears to be more interested in finding social outlets and companions. Recommended perhaps looking into local community resources such as [employer] which he agreed would be beneficial. He declined mental health resources and does not meet criteria for an [facility] level of care.
[2022-02-20] MEDS: Rivaroxaban 20 MG Tablet PO (17:36)
[2022-02-20] MEDS: Atorvastatin Calcium 10 MG Tablet PO (20:01)
[2022-02-20] MEDS: MELATONIN 10 MG TABLET PO (20:01)
[2022-02-21] MEDS: Albuterol Sulfate 8 gm Inhaler (60 puffs) 2 PUFF INHALATION (05:23)
[2022-02-21] MEDS: Cholecalciferol (VIT D3) 25 MCG TABLET (1,000 UNITS) PO (05:24)
[2022-02-21] MEDS: Amiodarone 200 MG Tablet 100 MG PO (05:24)
[2022-02-21] MEDS: Acetaminophen 500 MG Tablet 1000 MG PO ×3 (05:24→20:59)
[2022-02-21] MEDS: Escitalopram Oxalate 20 MG Tablet PO (05:24)
[2022-02-21] MEDS: Famotidine 20 MG Tablet PO (05:24)
[2022-02-21 05:34] VITALS: BP 114/60; PULSE 86
[2022-02-21 14:07] VITALS: BP 113/59; PULSE 70; RESP 18; TEMP 36.6; O2SAT 97
[2022-02-21] MEDS: Rivaroxaban 20 MG Tablet PO (17:21)
[2022-02-21] MEDS: Atorvastatin Calcium 10 MG Tablet PO (21:00)
[2022-02-21] MEDS: MELATONIN 10 MG TABLET PO (21:00)
[2022-02-21] MEDS: traMADol 50 MG Tablet PO (21:03)
[2022-02-22] MEDS: Cholecalciferol (VIT D3) 25 MCG TABLET (1,000 UNITS) PO (05:41)
[2022-02-22] MEDS: Famotidine 20 MG Tablet PO (05:41)
[2022-02-22] MEDS: Escitalopram Oxalate 20 MG Tablet PO (05:41)
[2022-02-22] MEDS: Acetaminophen 500 MG Tablet 1000 MG PO ×2 (05:41→13:21)
[2022-02-22] MEDS: Amiodarone 200 MG Tablet 100 MG PO (05:41)
[2022-02-22] MEDS: Albuterol Sulfate 8 gm Inhaler (60 puffs) 2 PUFF INHALATION ×2 (13:23→20:29)
[2022-02-22 16:00] VITALS: BP 119/70; PULSE 71; RESP 16; TEMP 36.2; O2SAT 98
[2022-02-22] MEDS: Rivaroxaban 20 MG Tablet PO (16:37)
--- NOTE | 2022-02-22 18:13 | NURSING ---
physicians transport will pickle pumper 0830 for ortho appt and drop off. then [facility] van will pick pt up and transport him home from there.
[2022-02-22 20:14] VITALS: PULSE 72; RESP 16; O2SAT 98
[2022-02-22] MEDS: Atorvastatin Calcium 10 MG Tablet PO (20:29)
[2022-02-22] MEDS: MELATONIN 10 MG TABLET PO (20:29)
[2022-02-22] MEDS: oxyCODONE 5 MG Tablet PO (20:42)
[2022-02-23] MEDS: Cholecalciferol (VIT D3) 25 MCG TABLET (1,000 UNITS) PO (06:35)
[2022-02-23] MEDS: Escitalopram Oxalate 20 MG Tablet PO (06:35)
[2022-02-23] MEDS: Famotidine 20 MG Tablet PO (06:35)
[2022-02-23] MEDS: Amiodarone 200 MG Tablet 100 MG PO (06:35)
[2022-02-23] MEDS: Acetaminophen 500 MG Tablet 1000 MG PO (06:36)
[2022-02-23 06:39] VITALS: PULSE 77; RESP 16; O2SAT 98
[2022-02-23] MEDS: Albuterol Sulfate 8 gm Inhaler (60 puffs) 2 PUFF INHALATION (07:43)
--- NOTE | 2022-02-23 09:34 | MDS.RN ---
Information for the mds was obtained from review of the clinical record, interview of resident, staff, and direct observation of resident's care.
== END 2022-02-23 10:30 | disposition home or self-care (01) | DRG 560 ==
PROVIDERS: Admitting Provider Family Medicine Geriatric Medicine; PCP Family Medicine Geriatric Medicine; Visit Provider Family Medicine Geriatric Medicine
DX: Z47.1 Aftercare following joint replacement surgery (principal); I42.9 Cardiomyopathy, unspecified; I48.91 Unspecified atrial fibrillation; J44.9 Chronic obstructive pulmonary disease, unspecified; E55.9 Vitamin D deficiency, unspecified; M17.12 Unilateral primary osteoarthritis, left knee; I10 Essential (primary) hypertension; E78.5 Hyperlipidemia, unspecified; K21.9 Gastro-esophageal reflux disease without esophagitis; F32.A Depression, unspecified; Z79.01 Long term (current) use of anticoagulants; Z87.891 Personal history of nicotine dependence; Z96.652 Presence of left artificial knee joint; Z79.899 Other long term (current) drug therapy; Z95.810 Presence of automatic (implantable) cardiac defibrillator
CPT/HCPCS: 36415; 80048; 85025; 87426; 97110; 97116; 97162; 97166; 97530; 97535; 97802

== ENCOUNTER 2022-03-29 12:00 | Outpatient (RCR) | payer MEDICARE, OTHER, SELFPAY ==
--- NOTE | 2022-02-27 16:37 | HP.PTEVAL ---
Patient's Visit Information BENITO HILL is a 76 year old M referred to Physical Therapy by Dr. Sree Ash MD with a diagnosis of LEFT TKR,DECLINE ADL'S. Date of Evaluation: 02/27/22 Physical Therapist: Benito Inman, PT, Cert MDT, OCS - Visit Plan Frequency: 2x /Week Duration: 4 Weeks Plan: PT INTERVETIONS ROM/FLEXABILTY KNEE ,PRE 'S QUADS/HAMS /HIP,GAIT/BALANCE PROGRAM ,FUNCTIONAL STRENGTH AND NUSTEP/BIKE - Subjective This 76 y/o male presents to physical therapy for left TKR . Patient has had pain for many years which affected ability to walk. Patient had left TKR February [address] Dozier then went TCU for rehab ~ 2 weeks then d/c February 23 . Recommended PT transition to cane. Patient has soreness , C/O stiffness . Patient lives alone 1 story home none. Tub/shower. Patient has fww. Patient has some paresthesia knee. Patient goal keep is get back to normal. Patient surgery TKR impairs QOL and function. MEDS: oxycodone, RTD ~ 1 month .Pacemaker. SOCAIL:Lives alone - Pain Left Knee Pain Intensity (Out of 10): 2 Pain Intensity Range: 10 - Objective POSTURE: mild forward posture. GAIT: reciprocal pattern 2 point with cane, ambulated in PT no device reciprocal pattern. SKIN: incision well approximate, sterry intact. STAIRS: one steps at time with rail. AROM :3-112 degrees supine knee flexion. GIRTH PATELLA: 43.2 CM. GIRTH 6 SUPRAPATELLAR: 24.8 CM. MMT( peak force) : quads 32.6 ,hams 24.8 cm ,hip flexion 35.1. BALANCE: GOOD-. FLEXABLITY: hamstrings min limited - Balance/Special Test Scores Lower Extremity Functional Score: 19 TUG Test Time Seconds: 14.8 WOMAC Total Score: 55 WOMAC Percentatge: 40.2200 - Goals Goal 1:: Patient to be I with HEP for TKR Goal Time Frame: 4-6 Weeks Goal 2:: Patient to normalize gait pattern community distances Goal Time Frame: 4-6 Weeks Goal 3:: Patient to improve AROM 0-120 supine flexion to improve alternating stairs Goal Time Frame: 4-6 Weeks Goal 4:: Patient to improve peak force on quads/hams by 10 to improve function Goal Time Frame: 4-6 Weeks Goal 5:: Patient to improve TUG by less 10sec to improve gait and balance Goal Time Frame: 4-6 Weeks Goal 6:: Patient to improve LFES score by 5 -10 points or> to improve QOL and function with gait Goal Time Frame: 4-6 Weeks - Rehabilitation Potential Physical Therapy Diagnosis: This patient underwent s/p TKR with decrease strength ,ROM and gait thus benefit from skilled PT to improve function Rehabilitation Potential: Good - Anticipated Interventions Patient/Client Instruction: Educate patient on: Condition, Plan of Care For the Purpose of:: To decrease pain, To increase ROM, To improve muscle performance and motor function, To improve ability to perform ADL's, To increase tolerance to activity/condition/position, To improve ability of physical actions for home/community/work/leisure, To improve health of tissue, To decrease soft tissue restriction, To increase flexibility/ROM, To prevent re-injury, To improve tolerance to ADL's Therapeutic Exercise to Include: Strength training, Endurance training, Balance training, Postural training, Flexibilty training, Passive ROM, Active ROM For the Purpose of:: To decrease pain, To increase ROM, To improve muscle performance and motor function, To improve ability to perform ADL's, To increase tolerance to activity/condition/position, To improve ability of physical actions for home/community/work/leisure, To improve gait and locomotor functions, To improve health of tissue, To decrease soft tissue restriction, To increase flexibility/ROM Thank you for the opportunity to evaluate your patient. For Medicare and Medicare HMO plans, please review the plan of care and approve it. It will need to be FAXED BACK to us at [phone] for Medicare purposes. For Medicare only, by signing this I certify the plan of care. Please let me know if there are questions or concerns regarding this plan of care. Physician Signature: Date:
--- NOTE | 2022-03-02 07:55 | HP.OTEVAL ---
Patient's Visit Information BENITO HILL is a 76 year old M, referred to Occupational Therapy by Dr. Sree Ash MD, with a diagnosis of L total knee replacement. Date of Evaluation: 03/01/22 Occupational Therapist: Meena Arizmendi, OTR/Luis, CHT - Subjective Pt. is a 76 year old male here for OT eval secondary to left total knee replacement. February 08, 2022 knee surgery, stayed in hospital for therapy until February 23, 2022. Currently in out-pt. PT. Pt. states he lives alone. - ADLs Comments: pt. using compensatory tech, just takes longer for LB dressing Comments: no difficulty Eating: Bring food to mouth Comments: no difficulty Comments: no difficulty Comments: no difficulty Kitchen: Open jars Comments: uses pliars Comments: waiting to do outside windows Comments: Has not tried outside work yet Comments: no difficulty Comments: Currently using hospital transportation. 1 story home, back 1 step and 2 half steps, no hand rail. Has comfort height commode. Declines need for shower chair. LH shoe horn. Trialed weighted silverware, tremor makes it difficult to eat. pt reports he is LUIS ENRIQUE with ADLs and IADls at this time. - Pain Left Knee 7 - ROM Shoulder: L 120* R130* Elbow: B WFL Forearm: B WFL Wrist: B WFL - Strength Shoulder: R 22.9# L 23.4# Elbow: R 23.4# L 20.0# Strength Comments: pt demo good functional strength in BUE - Sensation Index: B 3.84 Middle: B 3.84 Ring: B 3.84 Little: B 3.84 Stereognosis: Normal - Right, Normal - Left Kinesthesia: Normal - Right, Normal - Left Proprioception: Normal - Right, Normal - Left - Movement Tremors: essential tremors Movement Comments: had tremors for years - Balance Static Sitting: no difficulty - Transfers Transfers: Pt. walks with a cane at Mod I. - Quick DASH-Disab of Arm,Shoulder& Hand Quick DASH Score: 27.2725 - Rehabilitation General Assessment: Pt. had a left knee replacement on 02-08-22. Pt. is currently in out-pt. PT. Pt. was sent by Dr. Ash for OT evaluation. At this time pt. does not require skilled OT services as he is currently independent with ADL's. As far as his essential tremors go, he declined need for adaptations. Therapy session was directly supervised and doc. reviewed and approved by Meena MANZO/Luis, ISIDOROT - Anticipated Interventions Other Interventions: Therapist recommended taller cane for correct body posture when walking and standing. - Visit Plan General Plan: Pt. does not require skilled OT services at this time. TEXT: Thank you for the opportunity to evaluate your patient. For Medicare and Medicare HMO plans, please review the plan of care and approve it. It will need to be FAXED BACK to us at [phone] for Medicare purposes. Please let me know if there are questions or concerns regarding this plan of care. Physician Signature: Date:
--- NOTE | 2022-03-02 07:55 | HP.OTDCSUM ---
It has been my pleasure to treat BENITO HILL under orders from Dr. Sree Ash MD, for the diagnosis of L total knee replacement for a total of 1 visit(s). Please see the following information for a summary of their discharge status. Objective/Function: Pt demo good UB strength to perform his ADLs and IADLs at a LUIS ENRIQUE level- no skilled OT services needed at this time. ( therapist did ask if pt wanted to address tremor pt declined service). pt will continue with PT for LE strengthening and balance. If there are questions or concerns regarding this patient's occupational therapy, please fell free to call me at [phone]. Thank you for the referral of this patient. Sincerely, Meena Arizmendi, OTR/L, CHT
--- NOTE | 2022-03-29 12:36 | HP.PTDCSUM ---
It has been my pleasure to treat BENITO HILL referred by Dr. Sree Ash MD, with the diagnosis of LEFT TKR, DECLINE ADL'S for a total of 9 visit(s). Discharge Date: 03/29/22 Please see the following information for a summary of their discharge status. Subjective: Doing good Able to cut grass Left Knee Pain Intensity (Out of 10): 0 % Improvement: 50 Objective/Function: GAIT: reciprocal pattern. MMT: 55 # peak forces ,hamstring 54. AROM: 4 -120 degrees supine flexion. STAIRS: alternating with stairs Goal 1:: Patient to be I with HEP for TKR Goal Progress: Goal Met Goal 2:: Patient to normalize gait pattern community distances Goal Progress: Goal Met Goal 3:: Patient to improve AROM 0-120 supine flexion to improve alternating stairs Goal 4:: Patient to improve peak force on quads/hams by 10 to improve function Goal Progress: Goal Met Goal 5:: Patient to improve TUG by less 10sec to improve gait and balance Goal Progress: Goal Met Goal 6:: Patient to improve LFES score by 5 -10 points or> to improve QOL and function with gait Goal Progress: Goal Met Plan: D/C TO HOME PROGRAM Discharge Comments: HEP If there are questions or concerns regarding this patient's physical therapy, please feel free to call me at [phone]. Thank you for the referral of this patient. Sincerely, Benito Inman, PT, Cert MDT, OCS Balance/Gait/Functional tests - Balance/Special Test Scores Lower Extremity Functional Score: 19 TUG Test Time Seconds: 7.8 Tug Test: <10 sec.=free mobile WOMAC Total Score: 1 WOMAC Percentage: 98.9600
== END 2022-03-29 19:00 | disposition home or self-care (01) ==
LOC: PT 12:00
PROVIDERS: PCP Family Medicine Geriatric Medicine; Referring Provider Family Medicine Geriatric Medicine; Visit Provider Family Medicine Geriatric Medicine
DX: Z96.652 Presence of left artificial knee joint (principal); Z47.1 Aftercare following joint replacement surgery; Z73.89 Other problems related to life management difficulty
CPT/HCPCS: 97110; 97162; 97165

== ENCOUNTER → 2022-04-13 | Outpatient (CLI) | payer MEDICARE, OTHER, SELFPAY ==
--- NOTE | 2022-04-13 12:53 | VDLE_ITS ---
Reason For Study: localized swelling Procedure LEFT This is a venous duplex using B-mode, color GSV is normal. flow and spectral Doppler. CFV is compressible, spontaneous, phasic, Exam performed in department. competent, and demonstrates normal The exam was abbreviated due to the COVID 19 augmentation. protocol. FV is compressible, spontaneous, phasic, The exam was diagnostic. competent and demonstrates normal A preliminary report was called and/or faxed augmentation. to Dr. Dozier. POP V is compressible, spontaneous, phasic, competent and demonstrates normal augmentation. T/P Trunk is compressible. PTV is compressible. LT PerV is compressible. Heterogeneous area behind the knee measuring 1.17 x 3.47 cm in short. Area is nonvascular. VL/Venous Duplex US, Unilateral Interpretation Summary Deep veins of the left lower extremity are patent and compressible segmentally. There is no evidence of left lower extremity deep vein thrombosis. Valvular competence appears intac t within the proximal deep venous system on the left . The left great saphenous vein appears patent a nd compressible segmentally. A non-vascular, heterogeneous structure is noted in the left popli teal space, measuring 1.17 cm x 3.47 cm. This may represent a popliteal cyst. Clinical correlation is advised. Ordering Physician: Roman Dozier Performed By: Primo Overton RVT
== END | disposition home or self-care (01) ==
LOC: CVS 12:50
PROVIDERS: PCP Family Medicine Geriatric Medicine; Visit Provider Student in an Organized Health Care Education/Training Program
DX: R22.42 Localized swelling, mass and lump, left lower limb (principal)
CPT/HCPCS: 93971

== ENCOUNTER → 2022-04-16 | Outpatient (CLI) | payer MEDICARE, OTHER, SELFPAY ==
[2022-04-16 17:55] LABS: Absolute Lymphocyte Count 1.18 X10^3/uL (0.83-4.51); Basophil# 0.05 X10^3/uL; Basophil% 0.7 % (0-1); Eosinophil# 0.11 X10^3/uL; Eosinophils% 1.6 % (0-5); Hematocrit 41.8 % (40-54); Hemoglobin 13.1 g/dL (13.0-16.5); Lymphocyte # 1.18 X10^3/ul (0.83-4.51); Lymphocyte % 17.1 % (19-41); Mean Corp Hgb Conc 31.3 g/dL (32-36); Mean Corpuscular Hgb 29.2 pg (27.0-32.0); Mean Corpuscular Volume 93.3 fL (80-94); Monocyte# 0.55 X10^3/uL; NRBC Flagged by Analyzer 0 % (0-5); Neutrophil # 4.98 X10^3/uL (2.7-7.7); Neutrophil % 72.3 % (47-70); Platelet Count 157 K/mm3 (150-450); RBC Distribution Width CV 13.8 % (11.6-14.6); Red Blood Count 4.48 M/mm3 (4.6-6.2); White Blood Count 6.9 K/mm3 (4.4-11.0)
[2022-04-16 18:08] LABS: Anion Gap 7 (5-15); BUN 21 mg/dL (7-18); BUN/Creat Ratio 15.8 RATIO (10-20); Calcium,Total 9.3 mg/dL (8.5-10.1); Chloride 103 mmol/L (98-107); Creatinine, Serum 1.33 mg/dL (0.70-1.30); EST Glomerular Filtration Rate 56 mL/min (>60); Est Glom Filt Rate - Afr Amer 67 mL/min (>60); Glucose 102 mg/dL (74-106); Potassium 3.8 mmol/L (3.5-5.1); Sodium Level 136 mmol/L (136-145)
== END | disposition home or self-care (01) ==
LOC: LAB 16:24
PROVIDERS: PCP Family Medicine Geriatric Medicine; Visit Provider Nurse Practitioner Gerontology
DX: R53.83 Other fatigue (principal)
CPT/HCPCS: 36415; 80048; 85025

== ENCOUNTER → 2022-05-01 | Outpatient (CLI) | payer MEDICARE, OTHER, SELFPAY ==
[2022-05-01 13:03] LABS: PSA,Total - Annual Screen 1.19 ng/mL (0.00-4.00)
== END | disposition home or self-care (01) ==
LOC: LAB 11:16
PROVIDERS: PCP Family Medicine Geriatric Medicine; Visit Provider Urology
DX: Z12.5 Encounter for screening for malignant neoplasm of prostate (principal)
CPT/HCPCS: 36415; 84153; G0103

== ENCOUNTER → 2022-05-10 | Outpatient (CLI) | payer MEDICARE, OTHER, SELFPAY ==
[2022-05-10 11:54] LABS: Basophil# 0.07 X10^3/uL; Hemoglobin 12.8 g/dL (13.0-16.5); NRBC Flagged by Analyzer 0 % (0-5); White Blood Count 5.6 K/mm3 (4.4-11.0)
[2022-05-10 11:58] LABS: Absolute Lymphocyte Count 1.24 X10^3/uL (0.83-4.51); Absolute Neutrophil Count 3.7 X10^3/uL (2.0-7.7); Basophil% 1.2 % (0-1); Eosinophil# 0.27 X10^3/uL; Eosinophils% 4.8 % (0-5); Hematocrit 40.3 % (40-54); Lymphocyte # 1.24 X10^3/ul (0.83-4.51); Mean Corp Hgb Conc 31.8 g/dL (32-36); Mean Corpuscular Volume 91.4 fL (80-94); Mean Platelet Vol. 11.4 fl (6.2-12.0); Monocyte# 0.38 X10^3/uL; Monocyte% 6.7 % (0-10); Neutrophil # 3.66 X10^3/uL (2.7-7.7); Neutrophil % 64.9 % (47-70); Platelet Count 142 K/mm3 (150-450); RBC Distribution Width CV 13.7 % (11.6-14.6); RBC Distribution Width SD 46.9 fl (35.1-43.9); Red Blood Count 4.41 M/mm3 (4.6-6.2)
[2022-05-10 12:09] LABS: Vitamin D,25 Hydroxy 26.4 ng/mL
[2022-05-10 12:14] LABS: ALB/GLOB Ratio 0.9 RATIO (0.9-2.4); AST(SGOT) 14 U/L (15-37); Alanine Aminotransfer ALT/SGPT 16 U/L (16-61); Albumin, Serum 3.5 g/dL (3.2-5.0); Alkaline Phosphatase 85 U/L (45-117); Anion Gap 7 (5-15); BUN 12 mg/dL (7-18); BUN/Creat Ratio 9.5 RATIO (10-20); Calcium,Total 8.6 mg/dL (8.5-10.1); Chloride 106 mmol/L (98-107); Creatinine, Serum 1.26 mg/dL (0.70-1.30); EST Glomerular Filtration Rate 59 mL/min (>60); Est Glom Filt Rate - Afr Amer 71 mL/min (>60); Globulin 3.9 g/dL (2.2-4.2); Glucose 171 mg/dL (74-106); Potassium 3.4 mmol/L (3.5-5.1); Protein, Total 7.4 g/dL (6.4-8.2); Sodium Level 139 mmol/L (136-145); Thyroid Stim Hormone (TSH) 0.85 uIU/mL (0.358-3.74)
== END | disposition home or self-care (01) ==
LOC: POLAB3 09:25
PROVIDERS: PCP Family Medicine Geriatric Medicine; Visit Provider Family Medicine Geriatric Medicine
DX: E55.9 Vitamin D deficiency, unspecified (principal); R53.83 Other fatigue
CPT/HCPCS: 36415; 80053; 82306; 84443; 85025

== ENCOUNTER → 2022-07-20 | Outpatient (CLI) | payer MEDICARE, OTHER, SELFPAY ==
--- NOTE | 2022-07-20 08:13 | CT_ITS ---
STUDY: CTA CHEST REASON FOR EXAM: Male, 76 years old. TAA. Cardiac myopathy. RADIATION DOSAGE (If Supplied By Facility): CTDIvol = ( 8.84 ) mGy, DLP = ( 320.90 ) mGycm TECHNIQUE: The examination was performed with the intravenous administration of IV 100mL Isovue-370. Post-processing of the angiographic images was performed, with multiplanar reformation and 3D reconstruction. Individualized dose optimization techniques were used for this CT. COMPARISON: Comparison is made with prior examination dated 05/23/2021. FINDINGS: Normal enhancement of the main pulmonary artery and right and left pulmonary arteries. Normal enhancement of the bilateral peripheral pulmonary arteries. There is no demonstrated pulmonary embolism. The root of the ascending thoracic aorta has a transverse dimension of 3.8 cm. There is no demonstrated aortic dissection. There are calcifications of the coronary arteries. A left-sided pacemaker is seen. There are visualized mediastinal lymph nodes, which are within normal size limits, and with normal morphology. Normal hilar regions. Normal visualized trachea and bronchi. Hyperinflation. Stable emphysematous changes. Normal pleura. Normal chest wall structures. There are degenerative changes of thoracic spine. Normal visualized upper abdomen. CT/CTA Chest W/WO Contrast IMPRESSION: The root of the ascending aorta has a transverse dimension of 3.8 cm. Stable examination. Electronically Signed: Manuelito Marte MD at 10:25 EDT ,
[2022-07-20 08:41] LABS: CREATININE FINGERSTICK < 0.9 mg/dL (0.70-1.30); EGFR FINGERSTICK > 60.0000 mL/min (>60)
== END | disposition home or self-care (01) ==
LOC: CT 08:12
PROVIDERS: PCP Family Medicine Geriatric Medicine; Referring Provider Nurse Practitioner Gerontology; Visit Provider Nurse Practitioner Gerontology
DX: I71.2 Thoracic aortic aneurysm, without rupture (principal)
CPT/HCPCS: 71275; Q9967

== ENCOUNTER → 2022-08-08 | Outpatient (CLI) | payer MEDICARE, OTHER, SELFPAY ==
[2022-08-08 12:09] LABS: Absolute Lymphocyte Count 1.12 X10^3/uL (0.83-4.51); Basophil# 0.06 X10^3/uL; Basophil% 1.2 % (0-1); Eosinophil# 0.27 X10^3/uL; Eosinophils% 5.5 % (0-5); Hematocrit 40.8 % (40-54); Lymphocyte # 1.12 X10^3/ul (0.83-4.51); Lymphocyte % 22.8 % (19-41); Mean Corp Hgb Conc 31.9 g/dL (32-36); Mean Corpuscular Hgb 29.3 pg (27.0-32.0); Mean Corpuscular Volume 91.9 fL (80-94); Mean Platelet Vol. 11.1 fl (6.2-12.0); Monocyte# 0.45 X10^3/uL; Monocyte% 9.1 % (0-10); NRBC Flagged by Analyzer 0 % (0-5); Neutrophil # 3.01 X10^3/uL (2.7-7.7); Neutrophil % 61.2 % (47-70); Platelet Count 117 K/mm3 (150-450); RBC Distribution Width CV 13.9 % (11.6-14.6); RBC Distribution Width SD 47.2 fl (35.1-43.9); Red Blood Count 4.44 M/mm3 (4.6-6.2); White Blood Count 4.9 K/mm3 (4.4-11.0)
[2022-08-08 12:27] LABS: ALB/GLOB Ratio 0.9 RATIO (0.9-2.4); AST(SGOT) 17 U/L (15-37); Alanine Aminotransfer ALT/SGPT 19 U/L (16-61); Albumin, Serum 3.4 g/dL (3.2-5.0); Alkaline Phosphatase 98 U/L (45-117); Anion Gap 6 (5-15); BUN 16 mg/dL (7-18); BUN/Creat Ratio 13.6 RATIO (10-20); Calcium,Total 8.9 mg/dL (8.5-10.1); Chloride 107 mmol/L (98-107); Creatinine, Serum 1.18 mg/dL (0.70-1.30); EST Glomerular Filtration Rate 64 mL/min (>60); Est Glom Filt Rate - Afr Amer 77 mL/min (>60); Globulin 3.9 g/dL (2.2-4.2); Glucose 107 mg/dL (74-106); Potassium 3.7 mmol/L (3.5-5.1); Protein, Total 7.3 g/dL (6.4-8.2); Sodium Level 141 mmol/L (136-145); Thyroid Stim Hormone (TSH) 1.51 uIU/mL (0.358-3.74)
== END | disposition home or self-care (01) ==
LOC: POLAB3 09:12
PROVIDERS: PCP Family Medicine Geriatric Medicine; Visit Provider Family Medicine Geriatric Medicine
DX: R53.83 Other fatigue (principal); E55.9 Vitamin D deficiency, unspecified
CPT/HCPCS: 36415; 80053; 82306; 84443; 85025

== ENCOUNTER 2022-09-26 15:54 | Outpatient (CLI) | payer MEDICARE, OTHER, SELFPAY ==
--- NOTE | 2022-09-26 15:56 | CT_ITS ---
INDICATION: LOWER ABD PAIN EXAMINATION: CT Abdomen And Pelvis W/ Contrast Injection TECHNIQUE: Helically acquired images were obtained of the abdomen and pelvis after IV contrast. A radiation dose optimization technique was used for this scan. IV Contrast dosage and agent: Oral and amp; IV Gastrografin and amp; 100mL Isovue-370 Oral contrast: None. COMPARISON: None. FINDINGS: Visualized lung bases: Unremarkable Liver: Unremarkable Gallbladder: Unremarkable Spleen: Unremarkable Pancreas: Unremarkable Adrenal Glands: Unremarkable Kidneys: Unremarkable Vasculature: Severe aortoiliac atherosclerotic disease. GI Tract: Hiatal hernia. Scattered colonic diverticula. Lymphadenopathy: None Peritoneum: No ascites. Bladder: Unremarkable Reproductive organs: Unremarkable Bones/Soft tissues: There are diffuse degenerative changes of the spine. CT/Abdomen/Pelvis WITH Contrast IMPRESSION: No acute abnormalities in the abdomen or pelvis. Hiatal hernia. Diverticulosis. Electronically Signed: Hayden Sykes MD at 19:10 EDT ,
== END 2022-09-26 23:59 | disposition home or self-care (01) ==
PROVIDERS: PCP Family Medicine Geriatric Medicine; Referring Provider Family Medicine Geriatric Medicine; Visit Provider Family Medicine Geriatric Medicine
DX: R10.30 Lower abdominal pain, unspecified (principal); N39.0 Urinary tract infection, site not specified
CPT/HCPCS: 36415; 74177; 80053; 82150; 83690; 85025; 87086; Q9967

== ENCOUNTER → 2022-09-26 | Outpatient (CLI) | payer MEDICARE, OTHER, SELFPAY ==
[2022-09-26 17:13] LABS: Absolute Lymphocyte Count 1.24 X10^3/uL (0.83-4.51); Absolute Neutrophil Count 3.1 X10^3/uL (2.0-7.7); Basophil# 0.08 X10^3/uL; Basophil% 1.6 % (0-1); Eosinophil# 0.15 X10^3/uL; Hematocrit 40.1 % (40-54); Hemoglobin 13.3 g/dL (13.0-16.5); Lymphocyte # 1.24 X10^3/ul (0.83-4.51); Lymphocyte % 24.7 % (19-41); Mean Corp Hgb Conc 33.2 g/dL (32-36); Mean Corpuscular Hgb 30.2 pg (27.0-32.0); Mean Corpuscular Volume 91.1 fL (80-94); Mean Platelet Vol. 11.5 fl (6.2-12.0); Monocyte# 0.49 X10^3/uL; Monocyte% 9.7 % (0-10); NRBC Flagged by Analyzer 0 % (0-5); Neutrophil # 3.06 X10^3/uL (2.7-7.7); Neutrophil % 60.8 % (47-70); Platelet Count 104 K/mm3 (150-450); RBC Distribution Width SD 47.8 fl (35.1-43.9)
[2022-09-26 17:25] LABS: AST(SGOT) 16 U/L (15-37); Alanine Aminotransfer ALT/SGPT 20 U/L (16-61); Albumin, Serum 4.1 g/dL (3.2-5.0); Alkaline Phosphatase 78 U/L (45-117); Amylase 68 U/L (25-115); Anion Gap 6 (5-15); BUN 19 mg/dL (7-18); BUN/Creat Ratio 13.1 RATIO (10-20); Calcium,Total 9.1 mg/dL (8.5-10.1); Chloride 104 mmol/L (98-107); Creatinine, Serum 1.45 mg/dL (0.70-1.30); EST Glomerular Filtration Rate 50 mL/min (>60); Est Glom Filt Rate - Afr Amer 61 mL/min (>60); Glucose 94 mg/dL (74-106); Lipase 181 U/L (73-393); Potassium 4.2 mmol/L (3.5-5.1); Protein, Total 8.1 g/dL (6.4-8.2); Sodium Level 137 mmol/L (136-145)
== END | disposition home or self-care (01) ==
LOC: POLAB3 15:24
PROVIDERS: PCP Family Medicine Geriatric Medicine; Visit Provider Family Medicine Geriatric Medicine
DX: N39.0 Urinary tract infection, site not specified (principal)
CPT/HCPCS: 36415; 80053; 82150; 83690; 85025; 87086

== ENCOUNTER → 2022-10-16 | Outpatient (CLI) | payer MEDICARE, OTHER, SELFPAY ==
[2022-10-16 17:32] LABS: Erythrocyte Sedimentation Rate 11 mm/hr (0-20)
[2022-10-16 18:32] LABS: Anion Gap 8 (5-15); BUN 17 mg/dL (7-18); BUN/Creat Ratio 14.7 RATIO (10-20); CRP < 2.90 mg/L (0.0-3.0); Calcium,Total 9.1 mg/dL (8.5-10.1); Chloride 103 mmol/L (98-107); Creatinine, Serum 1.16 mg/dL (0.70-1.30); EST Glomerular Filtration Rate 65 mL/min (>60); Est Glom Filt Rate - Afr Amer 79 mL/min (>60); Glucose 109 mg/dL (74-106); Potassium 3.5 mmol/L (3.5-5.1); Sodium Level 139 mmol/L (136-145)
== END | disposition home or self-care (01) ==
LOC: POLAB3 14:53
PROVIDERS: PCP Family Medicine Geriatric Medicine; Visit Provider Family Medicine Geriatric Medicine
DX: R68.84 Jaw pain (principal)
CPT/HCPCS: 36415; 80048; 82747; 85014; 85652; 86140

== ENCOUNTER 2022-10-22 14:20 | Outpatient (CLI) | payer MEDICARE, OTHER, SELFPAY ==
--- NOTE | 2022-10-22 14:21 | CT_ITS ---
STUDY: CT BRAIN WITHOUT CONTRAST REASON FOR EXAM: Male, 77 years old. Chronic right-sided headaches. History of renal carcinoma. RADIATION DOSAGE (If Supplied By Facility): CTDIvol = ( 44.99 ) mGy, DLP = ( 812.98 ) mGycm TECHNIQUE: Transaxial CT imaging of the brain was performed without administration of intravenous contrast material. Individualized dose optimization techniques were used for this CT. COMPARISON: Comparison is made with prior examination dated 10/08/2018. FINDINGS: Normal soft tissue structures. Normal calvarium. Normal size ventricles and extra-axial spaces for the patient''s age. Normal white matter tracts of the cerebral hemispheres. Normal basal ganglia and thalami. Normal brainstem. Normal cerebellum. There is no intracranial hemorrhage. There are no findings of an acute ischemic infarction. Atherosclerotic calcification of the cavernous portions of the internal carotid arteries bilaterally. Normal visualized paranasal sinuses. CT/Brain/Head without Contrast IMPRESSION: Chronic involutional changes of the brain. Electronically Signed: Manuelito Marte MD at 14:51 EST ,
== END 2022-10-22 23:59 | disposition home or self-care (01) ==
LOC: CT 14:21
PROVIDERS: PCP Family Medicine Geriatric Medicine; Referring Provider Family Medicine Geriatric Medicine; Visit Provider Family Medicine Geriatric Medicine
DX: R51.9 Headache, unspecified (principal); R68.84 Jaw pain
CPT/HCPCS: 70450; 82747; 85014

== ENCOUNTER → 2022-10-22 | Outpatient (CLI) | payer MEDICARE, OTHER, SELFPAY ==
[2022-10-24 15:08] LABS: Folate, RBC (Hct) Test 41.7 % (37.5-51.0)
[2022-10-24 16:22] LABS: Folates, RBC Test 1192 ng/mL (>498)
== END | disposition home or self-care (01) ==
LOC: POLAB3 13:18
PROVIDERS: PCP Family Medicine Geriatric Medicine; Visit Provider Family Medicine Geriatric Medicine
DX: R68.84 Jaw pain (principal)
CPT/HCPCS: 82747; 85014

== ENCOUNTER 2022-11-05 09:22 | Emergency (ER) | payer MEDICARE, OTHER, SELFPAY ==
[2022-11-05 09:24] VITALS: BP 129/65; PULSE 81; RESP 18; TEMP 36.7; O2SAT 100; BMI 18.8
--- NOTE | 2022-11-05 09:29 | NURSING ---
NO OLD EKGS
--- NOTE | 2022-11-05 09:56 | ED.VIS.CHEST ---
HPI History of Present Illness Chief Complaint: Chest Pain Onset/Context/Timing Onset: Today Activity at onset: gradual Timing: Continuous Quality: Positive for Dull Location: Substernal Worsened By: Nothing Relieved By: Nothing Associated Symptoms: Positive for Diaphoresis, Dyspnea, Lightheadedness and Acid Reflux; Negative for Nausea, Vomiting, Cough, Fever or Palpitations Narrative Narrative: Patient presents with chest pain that began this morning. Patient states it is dull. Patient states it is over the substernal area. Patient states it has been constant since he woke up this morning. Patient states he broke out into a sweat. Patient admits to some shortness of breath with it. Patient also admits to some lightheadedness and reflux symptoms. Patient states the pain is over the substernal area. Patient denies any radiation to his neck or back. Patient states nothing makes it better nothing makes it worse. Patient denies any fevers or chills. Patient denies any cough. CVD Risk Factors: Positive for Hypertension, Hypercholesterolemia and Family History 1' </=55; Negative for Diabetes or Smoking PE Risk Factors: Negative for Recent Travel/Surgery, Recent Immobilization, Prior DVT or PE, Cancer or OCP + Smoking + >/=35 PFSH PFSH Medical History Ambulates with cane Anemia Arthritis Cardiology follow-up encounter Cardiomyopathy Chest pain Colitis Depression Gastric reflux GERD (gastroesophageal reflux disease) Hyperlipidemia Hypertension Hypokalemia ICD (implantable cardioverter-defibrillator) in place Long-term use of high-risk medication Loose, teeth MVP (mitral valve prolapse) Near syncope Nonrheumatic mitral (valve) prolapse Pacemaker Pre-op evaluation Premature ventricular contraction Shortness of breath on exertion SVT (supraventricular tachycardia) Syncope Thoracic aortic aneurysm Thoracic aortic aneurysm without rupture Ventricular tachycardia Wears glasses Home Medications escitalopram oxalate 10 mg tablet (Lexapro) 20 mg PO DAILY mood/depression 05/15/21 [History Last Taken Unknown] acetaminophen 500 mg tablet 1,000 mg PO Q8 pain 02/10/22 [History Last Taken Unknown] cholecalciferol (vitamin D3) 25 mcg (1,000 unit) capsule 25 mcg PO DAILY bone health 02/10/22 [History Last Taken Unknown] albuterol sulfate 90 mcg/actuation aerosol inhaler (Ventolin HFA) 2 puff inhalation Q4H PRN PRN SOB &/OR WHEEZING #0 grams 02/19/22 [Rx Last Taken Unknown] amiodarone 200 mg tablet 100 mg PO DAILY heart #45 tabs 03/12/22 [Rx Last Taken Unknown] simvastatin 20 mg tablet 20 mg PO QHS cholesterol #90 tabs 03/12/22 [Rx Last Taken Unknown] apixaban 5 mg tablet (Eliquis) 5 mg PO BID #180 tabs 10/03/22 [Rx Last Taken Unknown] Allergy/AdvReac Type Severity Reaction Status Date / Time No Known Allergies Allergy Verified 11/05/22 09:23 Family History Father Heart disease Sister Heart disease Brother Heart disease Surgical History History of bilateral cataract extraction History of partial nephrectomy (07/02/18) History of tonsillectomy History of total left knee replacement Hx of atrioventricular node ablation Presence of cardiac defibrillator Social History household members: none Smoking Status: Former smoker how long ago did patient quit smokin years ago alcohol intake: never substance use type: does not use caffeine: Yes Type: coffee Number of servings: 2 ROS ROS ED Constitutional Constitutional ED: Denies chills or fever(s) Eyes Eyes: Denies blurry vision or change in vision ENT ENT ED: Denies rhinorrhea or sore throat Cardiovascular Cardiovascular: Reports chest pain; Denies palpitations Respiratory/Chest Respiratory/Chest: Reports dyspnea; Denies cough Gastrointestinal Gastrointestinal: Denies abdominal pain, nausea or vomiting Genitourinary Genitourinary ED: Denies dysuria or hematuria Musculoskeletal Musculoskeletal: Reports back pain and neck pain Integumentary Denies abscess or rash Neurologic Neurologic: Reports headache(s); Denies weakness Allergic/Immunologic Allergic/Immunologic ED: Denies mouth swelling or urticaria EXAM Physical Exam Const Vital Signs: 11/05/22 09:24 11/05/22 09:24 11/05/22 12:05 Temperature 98.0 F Temperature Source Temporal Pulse Rate 81 Respiratory Rate 18 Respiratory Effort Normal Non-Labored Blood Pressure 129/65 H Blood Pressure Mean 86 Pulse Ox 100 92 Oxygen Delivery Method Room Air Room Air Oxygen Flow Rate (L/min) 11/05/22 12:05 11/05/22 12:34 11/05/22 12:37 Temperature Temperature Source Pulse Rate Respiratory Rate 21 H Respiratory Effort Blood Pressure 128/73 H Blood Pressure Mean 91 Pulse Ox 97 80 93 Oxygen Delivery Method Room Air Room Air Nasal Cannula Oxygen Flow Rate (L/min) 2 Positive well nourished and well developed General Appearance ED: well developed and NAD HEENT Reports moist mucous membranes normocephalic and atraumatic Eyes PERRL and EOMs intact bilaterally Neck supple and no JVD Chest Wall palpation of chest normal Resp normal respiratory effort and clear to auscultation bilaterally Effort and Inspection: Negative for respiratory distress Cardio regular rate and regular rhythm GI normal to inspection, nondistended, normoactive bowel sounds, soft to palpation, non-tender and non-distended Extremity normal to inspection General Extremety ED: Negative for edema or tenderness General Extremity: Negative for edema Neuro oriented x3, CN's II-XII intact bilaterally and no sensory deficits noted Sensorium / Orientation: awake and alert Motor Exam: strength 5/5 throughout Psych mental status grossly normal Mood & Affect: depressed Heart Score History: Slightly/Non-Suspicious ECG: Nonspecific Repolarization Age: >/= 65 years Risk Factors: 1 or 2 Risk Factors Troponin: </= Normal Limit Score: 4 MDM MDM MDM Narrative Medical decision making narrative: Patient was given aspirin here. EKG was obtained. On my interpretation, it shows a paced rhythm with a rate of 76. SD interval was normal. QRS interval with prolonged at 148 ms. QTc interval was 549 ms. There is a left bundle branch block pattern noted. There are no acute ST or T wave changes noted. CBC was within normal limits. Basic metabolic profile showed a slightly elevated creatinine of 1.45. This is consistent with prior results. Initial high-sensitivity troponin was normal at 11. PA and lateral chest x-ray was obtained. There are 2 views. On my interpretation, lung pope are hyperinflated. There is normal cardiac silhouette. Bony thorax is normal. There is no acute process noted. Radiologist also interpreted the x-ray and agrees. 2-hour repeat high-sensitivity troponin was obtained and was normal at 10. Patient was advised of his findings. Patient was instructed to follow-up with his primary care physician in 3 to 5 days for further evaluation. Patient understood and was agreeable with the plan. All questions were answered. Lab Data Attestation: I reviewed the patient's lab results. Labs: Laboratory Results - last 24 hr 11/05/22 11/05/22 11/05/22 09:25 09:25 12:14 WBC 5.8 RBC 4.81 Hgb 14.3 Hct 44.3 MCV 92.1 MCH 29.7 MCHC 32.3 RDW Std Deviation 48.2 H RDW Coeff of Mary 14.2 Plt Count 87 L MPV 11.4 Immature Gran % (Auto) 0.300 Neut % (Auto) 65.0 Lymph % (Auto) 22.4 [place] % (Auto) 9.2 Eos % (Auto) 2.1 Baso % (Auto) 1.0 Absolute Neuts (auto) 3.7 Absolute Lymphs (auto) 1.29 Nucleated RBC % 0 Differential Comment SCANNED Sodium 138 Potassium 3.7 Chloride 104 Carbon Dioxide 29.0 Anion Gap 5 BUN 16 Creatinine 1.45 H Estim Creat Clear Calc 41.22 Est GFR (MDRD) Af Amer 61 Est GFR (MDRD) Non-Af 50 L BUN/Creatinine Ratio 11.0 Glucose 117 H Calcium 9.3 Troponin I High Sens 11 10 Radiography Chest X-Ray - ED: 2 View, Read by ED Physician, Read by Radiologist and No Acute Disease Diagnostic Testing: Clinical Impression(s) from Imaging Studies Chest X-Ray 11/05/22 10:00 IMPRESSION: Hyperinflation. The increased bronchovascular markings and could represent COPD and possible emphysematous change. Stable examination. Electronically Signed: Manuelito Marte MD at 10:59 EST , EKG Initial EKG: Attestation: I personally reviewed and interpreted this EKG as follows: Interpretation: Paced (76) and LBBB Prior EKG tracings: available for review Prior: Unchanged (07/17/2022) Discharge Plan Triage Chief Complaint: Chest Pain ED Provider: Efrain Giron Dx/Rx/DC Orders Clinical Impression: Chest pain, Chronic obstructive pulmonary disease Instructions: ED Chest Pain, Uncertain Cause Prescriptions: No Action escitalopram oxalate [Lexapro] 10 mg tablet 20 mg PO DAILY acetaminophen 500 mg tablet 1,000 mg PO Q8 cholecalciferol (vitamin D3) 25 mcg (1,000 unit) capsule 25 mcg PO DAILY albuterol sulfate [Ventolin HFA] 90 mcg/actuation Hfa Aerosol Inhaler 2 puff inhalation Q4H PRN PRN (Reason: SOB &/OR WHEEZING) Qty: 0 0RF amiodarone 200 mg tablet 100 mg PO DAILY Qty: 45 3RF Rx Instructions: heart rate simvastatin 20 mg tablet 20 mg PO QHS Qty: 90 3RF Eliquis 5 mg tablet 5 mg PO BID Qty: 180 4RF Primary Care Provider: Sree Ash Chi Referrals: Sree Ash Chi, MD [Primary Care Provider] - 3-5 Days Disposition Disposition: Home, Self Care
--- NOTE | 2022-11-05 10:00 | EKG12_ITS ---
Test Reason : Blood Pressure : / mmHG Vent. Rate : 076 BPM Atrial Rate : 067 BPM P-R Int : 166 ms QRS Dur : 148 ms QT Int : 488 ms P-R-T Axes : 000 244 099 degrees QTc Int : 549 ms AV dual-paced rhythm with frequent Premature ventricular complexes Abnormal ECG Confirmed by CHARLA GRAVES, STARR ([id number]), assistant editor LOUIS WILLIAMSON ([id number]) on 11/07/2022 11:09:01 AM Referred By: KERI Confirmed By:STARR DUNHAM MD
--- NOTE | 2022-11-05 10:00 | RAD_ITS ---
STUDY: X-RAY CHEST REASON FOR EXAM: Male, 77 years old. Chest pain TECHNIQUE: PA and lateral views of the chest. COMPARISON: Comparison is made with prior study dated 01/26/2022. FINDINGS: EKG electrodes are seen. There is hyperinflation of the lungs consistent with chronic obstructive lung disease (COPD). There is no demonstrated pleural abnormality. Normal size heart. A left-sided dual-chamber pacemaker is seen. Normal mediastinum and araceli. Normal visualized pulmonary arteries. There is atherosclerotic calcification of the aortic arch with tortuosity. There are diffuse degenerative changes of the visualized thoracic spine. Normal visualized ribs, clavicles, and shoulders. There is no demonstrated abnormality of the visualized soft tissue structures of the upper abdomen. RAD/Chest PA and Lateral IMPRESSION: Hyperinflation. The increased bronchovascular markings and could represent COPD and possible emphysematous change. Stable examination. Electronically Signed: Manuelito Marte MD at 10:59 EST ,
--- NOTE | 2022-11-05 10:00 | EKG12_ITS ---
Test Reason : cp Blood Pressure : / mmHG Vent. Rate : 080 BPM Atrial Rate : 090 BPM P-R Int : 162 ms QRS Dur : 142 ms QT Int : 480 ms P-R-T Axes : 000 267 085 degrees QTc Int : 553 ms AV dual-paced rhythm with occasional ventricular-paced complexes and with frequent Premature ventricu lar complexes Biventricular pacemaker detected Abnormal ECG Confirmed by CHARLA GRAVES, STARR ([id number]), editor department LOUIS WILLIAMSON ([id number]) on 11/07/2022 11:05:59 AM Referred By: Jillian Confirmed By:STARR DUNHAM MD
[2022-11-05] MEDS: Aspirin 81 MG TAB.CHEW 324 MG PO (10:14)
--- NOTE | 2022-11-05 10:14 | NURSING ---
NO OLD EKGS
[2022-11-05 10:24] LABS: Absolute Lymphocyte Count 1.29 X10^3/uL (0.83-4.51); Absolute Neutrophil Count 3.7 X10^3/uL (2.0-7.7); Basophil# 0.06 X10^3/uL; Eosinophil# 0.12 X10^3/uL; Eosinophils% 2.1 % (0-5); Hematocrit 44.3 % (40-54); Hemoglobin 14.3 g/dL (13.0-16.5); Lymphocyte # 1.29 X10^3/ul (0.83-4.51); Lymphocyte % 22.4 % (19-41); Mean Corp Hgb Conc 32.3 g/dL (32-36); Mean Corpuscular Hgb 29.7 pg (27.0-32.0); Mean Corpuscular Volume 92.1 fL (80-94); Mean Platelet Vol. 11.4 fl (6.2-12.0); Monocyte# 0.53 X10^3/uL; Monocyte% 9.2 % (0-10); NRBC Flagged by Analyzer 0 % (0-5); Neutrophil # 3.74 X10^3/uL (2.7-7.7); POSITIVE COUNT YES; Platelet Count 87 K/mm3 (150-450); RBC Distribution Width CV 14.2 % (11.6-14.6); RBC Distribution Width SD 48.2 fl (35.1-43.9); Red Blood Count 4.81 M/mm3 (4.6-6.2); White Blood Count 5.8 K/mm3 (4.4-11.0)
[2022-11-05 10:25] LABS: Differential Indicated SCAN CRITERIA MET
[2022-11-05 10:37] LABS: BUN 16 mg/dL (7-18); Creatinine, Serum 1.45 mg/dL (0.70-1.30); Estimated Creatinine Clearance 41.22 ml/min; Glucose 117 mg/dL (74-106)
[2022-11-05 10:38] LABS: Anion Gap 5 (5-15); Calcium,Total 9.3 mg/dL (8.5-10.1); Chloride 104 mmol/L (98-107); EST Glomerular Filtration Rate 50 mL/min (>60); Est Glom Filt Rate - Afr Amer 61 mL/min (>60); Potassium 3.7 mmol/L (3.5-5.1); Sodium Level 138 mmol/L (136-145); Troponin-I HS (w/2H Reflex) 11 pg/mL (3.0-78.0)
[2022-11-05 10:42] LABS: Differential Comment SCANNED
[2022-11-05 12:05] VITALS: BP 128/73; RESP 21; O2SAT 92; O2SAT 97
[2022-11-05 12:17] LABS: Reflex Troponin-HS? (from REC) Y
[2022-11-05 12:34] VITALS: O2SAT 80
[2022-11-05 12:37] VITALS: O2SAT 93
[2022-11-05 12:58] LABS: Troponin-I HS 10 pg/mL (3.0-78.0)
[2022-11-05 13:51] VITALS: PULSE 56; RESP 16; O2SAT 95
== END 2022-11-05 13:52 | disposition home or self-care (01) ==
PROVIDERS: Emergency Provider Emergency Medicine; PCP Family Medicine Geriatric Medicine; Visit Provider Emergency Medicine
DX: R07.9 Chest pain, unspecified (principal); J44.9 Chronic obstructive pulmonary disease, unspecified; Z95.810 Presence of automatic (implantable) cardiac defibrillator; Z87.891 Personal history of nicotine dependence
CPT/HCPCS: 71046; 80048; 84484; 85025; 93005; 99285; A4216

== ENCOUNTER → 2022-11-11 | Outpatient (CLI) | payer MEDICARE, OTHER, SELFPAY | END | disposition home or self-care (01) | PROVIDERS: PCP Family Medicine Geriatric Medicine; Visit Provider Family Medicine Geriatric Medicine | DX: R19.7 Diarrhea, unspecified (principal) | CPT/HCPCS: 82274; 83630; 87177; 87209; 87493; 87506 ==

== ENCOUNTER → 2022-11-12 | Outpatient (CLI) | payer MEDICARE, OTHER, SELFPAY ==
[2022-11-12 17:17] LABS: Absolute Lymphocyte Count 1.02 X10^3/uL (0.83-4.51); Absolute Neutrophil Count 3.8 X10^3/uL (2.0-7.7); Basophil# 0.06 X10^3/uL; Basophil% 1.1 % (0-1); Eosinophil# 0.04 X10^3/uL; Eosinophils% 0.7 % (0-5); Hematocrit 42.6 % (40-54); Hemoglobin 13.7 g/dL (13.0-16.5); Lymphocyte # 1.02 X10^3/ul (0.83-4.51); Mean Corp Hgb Conc 32.2 g/dL (32-36); Mean Corpuscular Hgb 29.8 pg (27.0-32.0); Mean Corpuscular Volume 92.8 fL (80-94); Mean Platelet Vol. 11.8 fl (6.2-12.0); Monocyte# 0.45 X10^3/uL; Monocyte% 8.4 % (0-10); NRBC Flagged by Analyzer 0 % (0-5); Neutrophil % 70.6 % (47-70); Platelet Count 144 K/mm3 (150-450); RBC Distribution Width CV 14.2 % (11.6-14.6); RBC Distribution Width SD 48.3 fl (35.1-43.9); Red Blood Count 4.59 M/mm3 (4.6-6.2); White Blood Count 5.4 K/mm3 (4.4-11.0)
[2022-11-12 17:26] LABS: Vitamin D,25 Hydroxy 26.5 ng/mL
[2022-11-12 17:45] LABS: AST(SGOT) 16 U/L (15-37); Alanine Aminotransfer ALT/SGPT 26 U/L (16-61); Albumin, Serum 3.8 g/dL (3.2-5.0); Alkaline Phosphatase 76 U/L (45-117); Anion Gap 9 (5-15); BUN 19 mg/dL (7-18); BUN/Creat Ratio 10.9 RATIO (10-20); Chloride 103 mmol/L (98-107); Creatinine, Serum 1.75 mg/dL (0.70-1.30); EST Glomerular Filtration Rate 40 mL/min (>60); Est Glom Filt Rate - Afr Amer 49 mL/min (>60); Globulin 3.9 g/dL (2.2-4.2); Glucose 96 mg/dL (74-106); Potassium 4.3 mmol/L (3.5-5.1); Protein, Total 7.7 g/dL (6.4-8.2); Sodium Level 136 mmol/L (136-145); Thyroid Stim Hormone (TSH) 1.31 uIU/mL (0.358-3.74)
== END | disposition home or self-care (01) ==
LOC: POLAB3 14:00
PROVIDERS: PCP Family Medicine Geriatric Medicine; Visit Provider Family Medicine Geriatric Medicine
DX: E55.9 Vitamin D deficiency, unspecified (principal); R53.83 Other fatigue
CPT/HCPCS: 36415; 80053; 82306; 84443; 85025

== ENCOUNTER → 2022-12-13 | Outpatient (CLI) | payer MEDICARE, OTHER, SELFPAY ==
--- NOTE | 2022-12-13 13:43 | ECHOD_ITS ---
Reason For Study: Thoracic Ao Aneurysm Procedure This was a 2D Doppler, Color Flow transthoracic echocardiogram. The exam was of adequate technical quality. Exam performed in department. Left Ventricle Moderately dilated left ventricle. Moderately severe global left ventricular systolic dysfunction. The estimated ejection fraction is 30 %. Paced septal motion. Diastolic function is indeterminate. Right Ventricle Normal RV size. ICD or pacer leads identified within the right ventricle. Normal systolic function. Atria The left atrium is mildly enlarged. The right atrium is mildly enlarged. ICD or pacer leads identified within the right atrium. No doppler evidence for ASD. Mitral Valve There is no mitral annular calcification. Mild diffuse mitral valve thickening. Mild mitral valve prolapse, posterior leaflet. Mild (1+) mitral valve insufficiency. Tricuspid Valve Normal tricuspid valve. Mild tricuspid valve insufficiency. Right ventricular systolic pressure estimated to be 24 mmHg. Aortic Valve Trisinus/trileaflet aortic valve. Mild focal aortic valve calcification. Trivial aortic valve insufficiency. Pulmonic Valve The pulmonic valve is not well visualized. Trivial pulmonic valve insufficiency. Great Vessels Moderately dilated aortic root. Pericardium/Pleural No pericardial effusion. MMode/2D Measurements & Calculations LVIDd: 6.0 cm IVSd: 0.71 cm Ao root diam: 5.0 cm LVIDs: 4.9 cm LVPWd: 0.94 cm LA dimension: 3.5 cm RVDd: 4.0 cm FS: 18.6 % LAV(MOD-bp): 69.6 ml LVAd ap4: 40.5 cm2 SV(MOD-sp4): 48.5 ml LAV(MOD-bp) Indexed: 39.2 ml/m2 LVLd ap4: 8.8 cm LAV(MOD-sp2): 79.8 ml EDV(MOD-sp4): 156.0 ml LAV(MOD-sp4): 59.3 ml EDV(sp4-el): 158.2 ml LVAs ap4: 32.5 cm2 LVLs ap4: 8.1 cm ESV(MOD-sp4): 107.6 ml ESV(sp4-el): 110.0 ml EF(MOD-sp4): 31.1 % EF(sp4-el): 30.5 % SV(sp4-el): 48.2 ml LA A4 area: 21.0 cm2 RA A4 area: 22.8 cm2 Time Measurements MV dec time: 0.19 sec Doppler Measurements & Calculations MV E max jay: 64.8 cm/sec Lat Peak E' Jay: 4.8 cm/sec Med Peak E' Jay: 9.5 cm/sec MV A max jay: 34.2 cm/sec E/E' lat: 13.5 E/E' med: 6.8 MV E/A: 1.9 MV V2 max: 73.3 cm/sec MV P1/2t max jay: 74.0 cm/sec Ao V2 max: 93.5 cm/sec MV max P.2 mmHg MV P1/2t: 54.4 msec Ao max P.5 mmHg MV V2 mean: 40.3 cm/sec Ao V2 mean: 69.8 cm/sec MV mean P.75 mmHg MV dec slope: 398.5 cm/sec2 Ao mean P.2 mmHg MV V2 VTI: 15.8 cm MVA(P1/2t): 4.0 cm2 Ao V2 VTI: 22.1 cm AV (velocity ratio): 0.57 LV V1 max: 56.0 cm/sec PA V2 max: 43.4 cm/sec TR max jay: 226.6 cm/sec LV V1 max P.3 mmHg TR max P.5 mmHg LV V1 mean P.73 mmHg LV V1 mean: 40.5 cm/sec LV V1 VTI: 12.6 cm ECHO/Echo Complete Interpretation Summary Moderately dilated left ventricle. Moderately severe global left ventricular systolic dysfunction. The estimated ejection fraction is 30 %. Paced septal motion. The left atrium is mildly enlarged. The right atrium is mildly enlarged. Mild diffuse mitral valve thickening. Mild mitral valve prolapse, posterior leaflet Mild (1+) mitral valve insufficiency. Mild tricuspid valve insufficiency. Mild focal aortic valve calcification. Trivial aortic valve insufficiency. Trivial pulmonic valve insufficiency. Moderately dilated aortic root. Right ventricular systolic pressure estimated to be 24 mmHg. Diastolic function is indeterminate. ICD or pacer leads identified within the right atrium ICD or pacer leads identified within the right ventricle. Ordering Physician: Anupam Reece Performed By: Pancho Diaz RCS
== END | disposition home or self-care (01) ==
LOC: CVS 13:42
PROVIDERS: PCP Family Medicine Geriatric Medicine; Visit Provider Internal Medicine Cardiovascular Disease
DX: I49.3 Ventricular premature depolarization (principal)
CPT/HCPCS: 93306

== ENCOUNTER → 2022-12-18 | Outpatient (CLI) | payer MEDICARE, OTHER, SELFPAY ==
--- NOTE | 2022-12-19 11:20 | PFT ---
INTRODUCTION: The patient is a 77-year-old male that presents for pulmonary function studies secondary to a diagnosis of amiodarone therapy. Respiratory therapy reported good patient effort. Bronchodilators were used during testing. INTERPRETATION: Forced expiration spirometry demonstrates no evidence of a large airways obstructive ventilatory defect. There was no significant response to aerosolized bronchodilators. Spirograms are of fair quality and plateau slowly indicating slow emptying of the lungs. Body plethysmography was performed and revealed lung volumes to be within normal limits. Diffusing capacity by single breath CO is also within normal limits. IMPRESSION: Grossly normal pulmonary function studies.
== END | disposition home or self-care (01) ==
LOC: PSN 09:19
PROVIDERS: PCP Family Medicine Geriatric Medicine; Referring Provider Internal Medicine Cardiovascular Disease; Visit Provider Internal Medicine Cardiovascular Disease
DX: I47.1 Supraventricular tachycardia (principal); I42.9 Cardiomyopathy, unspecified; Z95.810 Presence of automatic (implantable) cardiac defibrillator; I34.1 Nonrheumatic mitral (valve) prolapse; E78.5 Hyperlipidemia, unspecified
CPT/HCPCS: 94060; 94726; 94729

== ENCOUNTER → 2022-12-25 | Outpatient (CLI) | payer MEDICARE, OTHER, SELFPAY ==
[2022-12-25 13:38] LABS: Albumin, Serum 3.7 g/dL (3.2-5.0); BUN 13 mg/dL (7-18); BUN/Creat Ratio 10.3 RATIO (10-20); Calcium,Total 9.2 mg/dL (8.5-10.1); Chloride 105 mmol/L (98-107); Creatinine, Serum 1.26 mg/dL (0.70-1.30); EST Glomerular Filtration Rate 59 mL/min (>60); Est Glom Filt Rate - Afr Amer 71 mL/min (>60); Glucose 88 mg/dL (74-106); Phosphorus 3.3 mg/dL (2.5-4.9); Potassium 4.2 mmol/L (3.5-5.1); Sodium Level 139 mmol/L (136-145)
== END | disposition home or self-care (01) ==
PROVIDERS: PCP Family Medicine Geriatric Medicine; Visit Provider Internal Medicine Nephrology
DX: N17.9 Acute kidney failure, unspecified (principal)
CPT/HCPCS: 36415; 80069

== ENCOUNTER → 2023-01-16 | Outpatient (CLI) | payer MEDICARE, OTHER, SELFPAY ==
[2023-01-16 17:46] LABS: Albumin, Serum 3.8 g/dL (3.2-5.0); BUN 21 mg/dL (7-18); Chloride 102 mmol/L (98-107); EST Glomerular Filtration Rate 48 mL/min (>60); Est Glom Filt Rate - Afr Amer 58 mL/min (>60); Glucose 103 mg/dL (74-106); Phosphorus 2.1 mg/dL (2.5-4.9); Potassium 4.1 mmol/L (3.5-5.1); Sodium Level 136 mmol/L (136-145)
== END | disposition home or self-care (01) ==
LOC: POLAB3 15:45
PROVIDERS: PCP Family Medicine Geriatric Medicine; Visit Provider Internal Medicine Nephrology
DX: N18.31 Chronic kidney disease, stage 3a (principal)
CPT/HCPCS: 36415; 80069

== ENCOUNTER → 2023-01-17 | Outpatient (CLI) | payer MEDICARE, OTHER, SELFPAY ==
[2023-01-17 14:35] LABS: Color, Urine Amber (Yellow); Glucose, Dipstick 50 mg/dl (Normal); Ketone-Dipstick 5 mg/dl (Negative); Leukocyte Esterase-Dipstick 25 /ul (Negative); Nitrite-Dipstick Negative (Negative); Occult Blood-Urine 50 /ul (Negative); Protein-Dipstick 30 mg/dl (Negative); Specific Gravity, Urine 1.025 (1.002-1.030); Urine Bilirubin Dipstick Negative (Negative); Urine Clarity Clear (Clear); Urine Urobilinogen 1 mg/dl (Normal)
[2023-01-17 14:42] LABS: Red Blood Cells-Urine 5-10 SEEN /hpf (0-5); White Blood Cells 0-5 SEEN /hpf (0-5)
[2023-01-17 14:43] LABS: Bacteria RARE /hpf (None Seen); Mucous, Urine 1+ /hpf (<or=2+); Squamous Epithelial Cells - UA 0-5 SEEN /hpf (0-5)
== END | disposition home or self-care (01) ==
LOC: LABSPEC 13:32
PROVIDERS: PCP Family Medicine Geriatric Medicine; Visit Provider Internal Medicine Nephrology
DX: N18.31 Chronic kidney disease, stage 3a (principal)
CPT/HCPCS: 81001

== ENCOUNTER → 2023-01-18 | Outpatient (CLI) | payer MEDICARE, OTHER, SELFPAY | END | disposition home or self-care (01) | LOC: PSN 09:20 | PROVIDERS: PCP Family Medicine Geriatric Medicine; Referring Provider Family Medicine Geriatric Medicine; Visit Provider Family Medicine Geriatric Medicine | DX: R68.83 Chills (without fever) (principal) | CPT/HCPCS: 87635; 87804; 87807; C9803; U0003; U0005 ==

== ENCOUNTER → 2023-01-24 | Outpatient (CLI) | payer MEDICARE, OTHER, SELFPAY | END | disposition home or self-care (01) | LOC: PSN 10:34 | PROVIDERS: PCP Family Medicine Geriatric Medicine; Referring Provider Family Medicine Geriatric Medicine; Visit Provider Family Medicine Geriatric Medicine | DX: R68.83 Chills (without fever) (principal) | CPT/HCPCS: 87635; C9803; U0003; U0005 ==

== ENCOUNTER → 2023-01-28 | Outpatient (CLI) | payer MEDICARE, OTHER, SELFPAY | END | disposition home or self-care (01) | LOC: PSN 09:34 | PROVIDERS: PCP Family Medicine Geriatric Medicine; Visit Provider Family Medicine Geriatric Medicine | DX: R68.83 Chills (without fever) (principal) | CPT/HCPCS: 87635; C9803; U0003; U0005 ==

== ENCOUNTER → 2023-01-29 | Outpatient (CLI) | payer MEDICARE, OTHER, SELFPAY ==
[2023-01-29 13:26] LABS: Albumin, Serum 3.5 g/dL (3.2-5.0); BUN 19 mg/dL (7-18); BUN/Creat Ratio 16.7 RATIO (10-20); Calcium,Total 9.2 mg/dL (8.5-10.1); Chloride 103 mmol/L (98-107); Creatinine, Serum 1.14 mg/dL (0.70-1.30); EST Glomerular Filtration Rate 66 mL/min (>60); Est Glom Filt Rate - Afr Amer 80 mL/min (>60); Glucose 73 mg/dL (74-106); Phosphorus 3.1 mg/dL (2.5-4.9); Potassium 4.1 mmol/L (3.5-5.1); Sodium Level 137 mmol/L (136-145)
== END | disposition home or self-care (01) ==
PROVIDERS: PCP Family Medicine Geriatric Medicine; Visit Provider Internal Medicine Nephrology
DX: N17.9 Acute kidney failure, unspecified (principal)
CPT/HCPCS: 36415; 80069

== ENCOUNTER → 2023-05-07 | Outpatient (CLI) | payer MEDICARE, OTHER, SELFPAY ==
[2023-05-07 12:29] LABS: Absolute Lymphocyte Count 0.73 X10^3/uL (0.83-4.51); Absolute Neutrophil Count 2.9 X10^3/uL (2.0-7.7); Basophil# 0.07 X10^3/uL; Basophil% 1.7 % (0-1); Eosinophil# 0.17 X10^3/uL; Eosinophils% 4.1 % (0-5); Hematocrit 45.9 % (40-54); Hemoglobin 14.3 g/dL (13.0-16.5); Lymphocyte # 0.73 X10^3/ul (0.83-4.51); Lymphocyte % 17.5 % (19-41); Mean Corp Hgb Conc 31.2 g/dL (32-36); Mean Corpuscular Hgb 29.8 pg (27.0-32.0); Mean Corpuscular Volume 95.6 fL (80-94); Mean Platelet Vol. 11.1 fl (6.2-12.0); Monocyte# 0.29 X10^3/uL; Monocyte% 6.9 % (0-10); NRBC Flagged by Analyzer 0 % (0-5); Neutrophil # 2.91 X10^3/uL (2.7-7.7); Neutrophil % 69.6 % (47-70); POSITIVE COUNT YES; Platelet Count 95 K/mm3 (150-450); RBC Distribution Width CV 14.5 % (11.6-14.6); RBC Distribution Width SD 51.6 fl (35.1-43.9); White Blood Count 4.2 K/mm3 (4.4-11.0)
[2023-05-07 12:54] LABS: Vitamin D,25 Hydroxy 36.1 ng/mL
[2023-05-07 13:20] LABS: ALB/GLOB Ratio 0.9 RATIO (0.9-2.4); AST(SGOT) 16 U/L (15-37); Alanine Aminotransfer ALT/SGPT 21 U/L (16-61); Albumin, Serum 3.5 g/dL (3.2-5.0); Alkaline Phosphatase 80 U/L (45-117); Anion Gap 5 (5-15); BUN 12 mg/dL (7-18); Calcium,Total 8.8 mg/dL (8.5-10.1); Chloride 108 mmol/L (98-107); Creatinine, Serum 1.09 mg/dL (0.70-1.30); EST Glomerular Filtration Rate 70 mL/min (>60); Est Glom Filt Rate - Afr Amer 84 mL/min (>60); Globulin 3.8 g/dL (2.2-4.2); Glucose 88 mg/dL (74-106); Potassium 4.1 mmol/L (3.5-5.1); Protein, Total 7.3 g/dL (6.4-8.2); Sodium Level 140 mmol/L (136-145); Thyroid Stim Hormone (TSH) 1.13 uIU/mL (0.358-3.74)
== END | disposition home or self-care (01) ==
LOC: LAB 11:33
PROVIDERS: PCP Family Medicine Geriatric Medicine; Referring Provider Family Medicine Geriatric Medicine; Visit Provider Family Medicine Geriatric Medicine
DX: R53.83 Other fatigue (principal); E55.9 Vitamin D deficiency, unspecified
CPT/HCPCS: 36415; 80053; 82306; 84443; 85025

== ENCOUNTER → 2023-05-16 | Outpatient (CLI) | payer MEDICARE, OTHER, SELFPAY ==
[2023-05-16 16:36] LABS: PSA,Total - Annual Screen 1.09 ng/mL (0.00-4.00)
== END | disposition home or self-care (01) ==
LOC: LAB 15:10
PROVIDERS: PCP Family Medicine Geriatric Medicine; Referring Provider Urology; Visit Provider Urology
DX: Z12.5 Encounter for screening for malignant neoplasm of prostate (principal)
CPT/HCPCS: 36415; 84153; G0103

== ENCOUNTER → 2023-05-21 | Outpatient (CLI) | payer MEDICARE, OTHER, SELFPAY ==
[2023-05-21 14:58] LABS: Anion Gap 6 (5-15); BUN 18 mg/dL (7-18); BUN/Creat Ratio 14.6 RATIO (10-20); Calcium,Total 8.9 mg/dL (8.5-10.1); Chloride 108 mmol/L (98-107); Creatinine, Serum 1.23 mg/dL (0.70-1.30); EST Glomerular Filtration Rate 61 mL/min (>60); Est Glom Filt Rate - Afr Amer 73 mL/min (>60); Glucose 81 mg/dL (74-106); Potassium 4.2 mmol/L (3.5-5.1); Sodium Level 136 mmol/L (136-145)
== END | disposition home or self-care (01) ==
LOC: LAB 12:10
PROVIDERS: PCP Family Medicine Geriatric Medicine; Referring Provider Family Medicine Geriatric Medicine; Visit Provider Family Medicine Geriatric Medicine
DX: R53.83 Other fatigue (principal)
CPT/HCPCS: 36415; 80048

== ENCOUNTER → 2023-06-04 | Outpatient (CLI) | payer MEDICARE, OTHER, SELFPAY ==
[2023-06-04 16:35] LABS: Anion Gap 4 (5-15); BUN 16 mg/dL (7-18); BUN/Creat Ratio 12.8 RATIO (10-20); Calcium,Total 9.1 mg/dL (8.5-10.1); Chloride 106 mmol/L (98-107); Creatinine, Serum 1.25 mg/dL (0.70-1.30); EST Glomerular Filtration Rate 59 mL/min (>60); Est Glom Filt Rate - Afr Amer 72 mL/min (>60); Glucose 81 mg/dL (74-106); Potassium 3.9 mmol/L (3.5-5.1); Sodium Level 138 mmol/L (136-145)
== END | disposition home or self-care (01) ==
LOC: POLAB3 12:16
PROVIDERS: PCP Family Medicine Geriatric Medicine; Visit Provider Family Medicine Geriatric Medicine
DX: R53.83 Other fatigue (principal)
CPT/HCPCS: 36415; 80048

== ENCOUNTER 2023-07-02 22:01 | Emergency (ER) | payer MEDICARE, OTHER, SELFPAY ==
[2023-07-02 22:02] VITALS: BP 108/66; PULSE 72; RESP 15; TEMP 36.4; O2SAT 100; BMI 18.8
--- NOTE | 2023-07-02 22:19 | RAD_ITS ---
STUDY: X-RAY - RIGHT WRIST REASON FOR EXAM: Male, 77 years old. Injury/Pain TECHNIQUE: 3 view(s) of the wrist were obtained. COMPARISON: None. FINDINGS: There is demineralization of the radius and ulna. There is degenerative arthrosis of the radiocarpal articulation. Normal distal radioulnar articulation. There is demineralization of the carpal bones. Normal carpal articulations. There is degenerative arthrosis of the carpometacarpal articulation of the thumb. Normal second through fifth carpometacarpal articulations. Normal visualized metacarpal bones. There is a 7 mm linear metal foreign body in the volar soft tissues anterior to the distal ulna. RAD/Wrist min 3 Views IMPRESSION: No acute abnormalities. Demineralization and degenerative changes. Electronically Signed: Chapin Vela MD at 22:36 EDT ,
--- NOTE | 2023-07-02 22:56 | ED.VIS.FALL ---
HPI HPI - Fall History of Present Illness Chief Complaint: Fall Informant: patient Occured/Mechanism Occurred: Today Mechanism/Context: Yes trip Usually ambulates: Without assistance Pain/Injury Pain Location: upper extremity (Right wrist and hand) Quality of Pain: - (Still were) Worsened by: Movement Relieved by: Nothing Associated Symptoms Associated Symptoms: Positive for Parasthesias; Negative for Weakness, Loss of function, Inability to ambulate, Loss of consciousness or Amnesia Narrative Narrative: Patient presents with right wrist and hand pain that began after a fall today. Patient states he tripped this morning and fell forward. Patient states that he put his right hand out to catch himself. Patient states the pain has been getting progressively worse throughout the day. Patient states it is worse with movement. Patient does admit to some tingling into his fingers that is intermittent. Patient denies any weakness. Patient denies any head injury or loss of consciousness. Patient is on blood thinners but denies any trauma to his head. [facility] Medical History Ambulates with cane Anemia Arthritis Cardiology follow-up encounter Cardiomyopathy Chest pain Colitis Depression Essential hypertension Gastric reflux GERD (gastroesophageal reflux disease) Hyperlipidemia Hypertension Hypokalemia ICD (implantable cardioverter-defibrillator) in place Long-term use of high-risk medication Loose, teeth MVP (mitral valve prolapse) Near syncope Nonrheumatic mitral (valve) prolapse Pacemaker Pre-op evaluation Premature ventricular contraction Shortness of breath on exertion SVT (supraventricular tachycardia) Syncope Thoracic aortic aneurysm Thoracic aortic aneurysm without rupture Ventricular tachycardia Wears glasses Home Medications acetaminophen 500 mg tablet 1,000 mg PO Q8 pain 02/10/22 [History Last Taken Unknown] cholecalciferol (vitamin D3) 25 mcg (1,000 unit) capsule 25 mcg PO DAILY bone health 02/10/22 [History Last Taken Unknown] albuterol sulfate 90 mcg/actuation aerosol inhaler (Ventolin HFA) 2 puff inhalation Q4H PRN PRN SOB &/OR WHEEZING #0 grams 02/19/22 [Rx Last Taken Unknown] citalopram 10 mg tablet 10 mg PO DAILY 12/05/22 [History Last Taken Unknown] apixaban 5 mg tablet (Eliquis) 5 mg PO BID #180 tabs 02/27/23 [Rx Last Taken Unknown] amiodarone 200 mg tablet 100 mg (1/2 x 200 mg) PO DAILY heart #45 tabs 03/20/23 [Rx Last Taken Unknown] simvastatin 20 mg tablet 20 mg PO QHS cholesterol #90 tabs 03/20/23 [Rx Last Taken Unknown] sacubitril 24 mg-valsartan 26 mg tablet (Entresto) 1 tab PO BID #60 tabs 05/09/23 [Rx Last Taken Unknown] Allergy/AdvReac Type Severity Reaction Status Date / Time No Known Allergies Allergy Verified 07/02/23 22:05 Family History Father Heart disease Sister Heart disease Brother Heart disease Surgical History History of bilateral cataract extraction History of partial nephrectomy (07/02/18) History of tonsillectomy History of total left knee replacement Hx of atrioventricular node ablation Presence of cardiac defibrillator Social History household members: none Smoking Status: Former smoker how long ago did patient quit smokin years ago alcohol intake: never substance use type: does not use caffeine: Yes Type: coffee Number of servings: 2 ROS ROS ED Constitutional Constitutional ED: Denies chills or fever(s) Eyes Eyes: Denies blurry vision or change in vision ENT ENT ED: Denies rhinorrhea or sore throat Cardiovascular Cardiovascular: Denies chest pain or palpitations Respiratory/Chest Respiratory/Chest: Denies cough or dyspnea Gastrointestinal Gastrointestinal: Reports nausea; Denies vomiting Genitourinary Genitourinary ED: Denies dysuria or hematuria Musculoskeletal Musculoskeletal: Denies back pain or neck pain Integumentary Denies abscess or rash Neurologic Neurologic: Denies headache(s) or weakness Allergic/Immunologic Allergic/Immunologic ED: Denies mouth swelling or urticaria EXAM Physical Exam Const Vital Signs: 07/02/23 22:02 Temperature 97.6 F L Temperature Source Temporal Pulse Rate 72 Respiratory Rate 15 Blood Pressure 108/66 Blood Pressure Mean 80 Pulse Ox 100 Oxygen Delivery Method Room Air Positive well nourished and well developed General Appearance ED: well developed HEENT Reports normocephalic atraumatic Neck full ROM and supple Extremity Extremity Narrative: There is tenderness and mild edema of the right distal radius and ulna along with the proximal metacarpals. There is no obvious deformity noted. Range of motion was limited in all motions of the right wrist secondary to pain. Radial pulses are equal bilaterally. Sensation was intact to light touch in the radial, median, and ulnar areas. Strength is 5/5 in the radial, median, and ulnar areas. Neuro oriented x3, CN's II-XII intact bilaterally, moves all extremities, no focal motor deficits and no sensory deficits noted [place] Coma Scale: document GCS findings Spontaneous Obeys Commands Oriented 15 Sensorium / Orientation: alert Motor Exam: strength 5/5 throughout Psych mental status grossly normal MDM MDM MDM Narrative Medical decision making narrative: Differential diagnosis includes wrist sprain, fracture, and contusion. X-rays of the right wrist will be obtained to assess for fracture and dislocation. Radiography Diagnostic Testing: Clinical Impression(s) from Imaging Studies Wrist X-Ray 07/02/23 22:19 IMPRESSION: No acute abnormalities. Demineralization and degenerative changes. Electronically Signed: Chapin Vela MD at 22:36 EDT , X-rays of the right wrist were obtained. There are 3 views. On my independent interpretation, there is no acute fracture or dislocation. There are degenerative changes noted. There is a small foreign body noted in the volar aspect of the right distal ulna. Radiologist also interpreted the x-rays and agrees. Treatment and Re-Evaluation Narrative: Patient was advised of his findings. Patient was given a cock-up wrist splint. Patient was instructed to ice and elevate the right wrist. Patient was instructed to follow-up with his primary care physician in 5 to 7 days. Patient understood and was agreeable with the plan. All questions were answered. Discharge Plan Triage Chief Complaint: Fall ED Provider: Efrain Giron Dx/Rx/DC Orders Clinical Impression: Fall, Right wrist sprain Instructions: ED Wrist Sprain Prescriptions: No Action citalopram 10 mg tablet 10 mg PO DAILY acetaminophen 500 mg tablet 1,000 mg PO Q8 cholecalciferol (vitamin D3) 25 mcg (1,000 unit) capsule 25 mcg PO DAILY albuterol sulfate [Ventolin HFA] 90 mcg/actuation Hfa Aerosol Inhaler 2 puff inhalation Q4H PRN PRN (Reason: SOB &/OR WHEEZING) Qty: 0 0RF Eliquis 5 mg tablet 5 mg PO BID Qty: 180 4RF simvastatin 20 mg tablet 20 mg PO QHS Qty: 90 3RF amiodarone 200 mg tablet 100 mg PO DAILY Qty: 45 3RF Rx Instructions: heart rate Entresto 24-26 mg tablet 1 tab PO BID Qty: 60 0RF Primary Care Provider: Sree Ash Chi Referrals: Sree Ash Chi, MD [Primary Care Provider] - 5-7 Days Disposition Disposition: Home, Self Care
== END 2023-07-02 23:12 | disposition home or self-care (01) ==
PROVIDERS: Emergency Provider Emergency Medicine; PCP Family Medicine Geriatric Medicine; Visit Provider Emergency Medicine
DX: S63.91XA Sprain of unspecified part of right wrist and hand, initial encounter (principal); I42.9 Cardiomyopathy, unspecified; E78.5 Hyperlipidemia, unspecified; W19.XXXA Unspecified fall, initial encounter; Z87.891 Personal history of nicotine dependence; I10 Essential (primary) hypertension; K21.9 Gastro-esophageal reflux disease without esophagitis; Z95.810 Presence of automatic (implantable) cardiac defibrillator; Z79.899 Other long term (current) drug therapy; Z79.01 Long term (current) use of anticoagulants
CPT/HCPCS: 73110; 99283

== ENCOUNTER → 2023-07-04 | Outpatient (CLI) | payer MEDICARE, OTHER, SELFPAY ==
[2023-07-04 10:39] LABS: Albumin, Serum 3.4 g/dL (3.2-5.0); BUN 16 mg/dL (7-18); BUN/Creat Ratio 12.6 RATIO (10-20); Calcium,Total 8.6 mg/dL (8.5-10.1); Chloride 108 mmol/L (98-107); Creatinine, Serum 1.27 mg/dL (0.70-1.30); EST Glomerular Filtration Rate 58 mL/min (>60); Est Glom Filt Rate - Afr Amer 71 mL/min (>60); Glucose 96 mg/dL (74-106); Phosphorus 2.4 mg/dL (2.5-4.9); Potassium 3.9 mmol/L (3.5-5.1); Sodium Level 140 mmol/L (136-145)
== END | disposition home or self-care (01) ==
LOC: LAB 09:59
PROVIDERS: PCP Family Medicine Geriatric Medicine; Referring Provider Internal Medicine Nephrology; Visit Provider Internal Medicine Nephrology
DX: N18.31 Chronic kidney disease, stage 3a (principal)
CPT/HCPCS: 36415; 80069

== ENCOUNTER → 2023-07-30 | Outpatient (CLI) | payer MEDICARE, OTHER, SELFPAY ==
[2023-07-30 15:18] LABS: Absolute Lymphocyte Count 1.15 X10^3/uL (0.83-4.51); Basophil# 0.06 X10^3/uL; Eosinophils% 1.7 % (0-5); Hematocrit 41.1 % (40-54); Hemoglobin 13.4 g/dL (13.0-16.5); Lymphocyte # 1.15 X10^3/ul (0.83-4.51); Lymphocyte % 19.8 % (19-41); Mean Corp Hgb Conc 32.6 g/dL (32-36); Mean Corpuscular Hgb 30.9 pg (27.0-32.0); Mean Corpuscular Volume 94.7 fL (80-94); Mean Platelet Vol. 11.2 fl (6.2-12.0); Monocyte# 0.44 X10^3/uL; Monocyte% 7.6 % (0-10); NRBC Flagged by Analyzer 0 % (0-5); Neutrophil # 4.02 X10^3/uL (2.7-7.7); Neutrophil % 69.4 % (47-70); Platelet Count 102 K/mm3 (150-450); RBC Distribution Width CV 13.9 % (11.6-14.6); RBC Distribution Width SD 48.8 fl (35.1-43.9); Red Blood Count 4.34 M/mm3 (4.6-6.2); White Blood Count 5.8 K/mm3 (4.4-11.0)
[2023-07-30 15:42] LABS: BNP,B-Type NATRIURETIC PEPTIDE 125.9 pg/mL (0-100)
[2023-07-30 15:43] LABS: Anion Gap 4 (5-15); BUN 26 mg/dL (7-18); BUN/Creat Ratio 20.8 RATIO (10-20); Calcium,Total 8.7 mg/dL (8.5-10.1); Chloride 107 mmol/L (98-107); Creatinine, Serum 1.25 mg/dL (0.70-1.30); EST Glomerular Filtration Rate 59 mL/min (>60); Est Glom Filt Rate - Afr Amer 72 mL/min (>60); Glucose 90 mg/dL (74-106); Potassium 3.9 mmol/L (3.5-5.1); Sodium Level 138 mmol/L (136-145)
== END | disposition home or self-care (01) ==
LOC: LAB 14:10
PROVIDERS: PCP Family Medicine Geriatric Medicine; Referring Provider Nurse Practitioner Gerontology; Visit Provider Nurse Practitioner Gerontology
DX: R06.00 Dyspnea, unspecified (principal)
CPT/HCPCS: 36415; 80048; 83880; 85025

== ENCOUNTER → 2023-08-09 | Outpatient (CLI) | payer MEDICARE, OTHER, SELFPAY ==
--- NOTE | 2023-08-09 12:40 | CT_ITS ---
STUDY: CTA CHEST REASON FOR EXAM: Male, 77 years old. Thoracic aortic aneurysm RADIATION DOSAGE (If Supplied By Facility): CTDIvol = ( 12.98 ) mGy, DLP = ( 209.97 ) mGycm TECHNIQUE: The examination was performed with the intravenous administration of IV 100mL Isovue-370. Post-processing of the angiographic images was performed, with multiplanar reformation and 3D reconstruction. Individualized dose optimization techniques were used for this CT. COMPARISON: Comparison is made with prior study July 20, 2022. FINDINGS: Normal enhancement of the main pulmonary artery and right and left pulmonary arteries. Normal enhancement of the bilateral peripheral pulmonary arteries. There is no demonstrated pulmonary embolism. Normal thoracic aorta and visualized great vessels. There is no demonstrated aortic dissection. The root of the ascending thoracic aorta measures 3.8 cm transverse dimension. This is unchanged. There are calcifications of the coronary arteries. A left-sided dual-chamber pacemaker is present. Normal mediastinum. Normal hilar regions. Normal visualized trachea and bronchi. The lungs are well expanded. Normal pulmonary parenchyma. Normal pleura. Normal chest wall structures. There are degenerative changes of thoracic spine. Normal visualized upper abdomen. CT/CTA Chest W/WO Contrast IMPRESSION: Stable examination. Electronically Signed: Manuelito Marte MD at 13:40 EDT ,
== END | disposition home or self-care (01) ==
LOC: CT 12:39
PROVIDERS: PCP Family Medicine Geriatric Medicine; Referring Provider Nurse Practitioner Gerontology; Visit Provider Nurse Practitioner Gerontology
DX: I71.20 Thoracic aortic aneurysm, without rupture, unspecified (principal)
CPT/HCPCS: 71275; Q9967

== ENCOUNTER → 2023-10-29 | Outpatient (CLI) | payer MEDICARE, OTHER, SELFPAY ==
--- NOTE | 2023-10-29 15:17 | RAD_ITS ---
STUDY: X-RAY - LUMBAR SPINE REASON FOR EXAM: Male, 78 years old. MUSCLE SPASM OF BACK/LUMBAR DISC DISEASE TECHNIQUE: 5 view(s) of the lumbar spine were obtained. COMPARISON: None FINDINGS: Normal lumbar lordosis. There is no substantial scoliosis. There is a normal alignment of the vertebrae. Degenerative changes of the vertebral bodies with spurring at the endplates. Narrowed disc space heights. The soft tissue structures are unremarkable. Calcified aorta. RAD/L/S Spine Min 4 Views IMPRESSION: Degenerative changes of the lumbar spine. Electronically Signed: Manuel Smith DO at 17:04 EST ,
== END | disposition home or self-care (01) ==
LOC: RAD 15:10
PROVIDERS: PCP Family Medicine Geriatric Medicine; Referring Provider Family Medicine Geriatric Medicine; Visit Provider Family Medicine Geriatric Medicine
DX: M62.830 Muscle spasm of back (principal); M51.9 Unspecified thoracic, thoracolumbar and lumbosacral intervertebral disc disorder
CPT/HCPCS: 72110

== ENCOUNTER → 2023-11-14 | Outpatient (CLI) | payer MEDICARE, OTHER, SELFPAY ==
[2023-11-14 11:31] LABS: Absolute Lymphocyte Count 1.22 X10^3/uL (0.83-4.51); Basophil# 0.08 X10^3/uL; Basophil% 0.7 % (0-1); Eosinophil# 0.06 X10^3/uL; Eosinophils% 0.5 % (0-5); Hematocrit 46.3 % (40-54); Hemoglobin 14.8 g/dL (13.0-16.5); Lymphocyte # 1.22 X10^3/ul (0.83-4.51); Lymphocyte % 10.6 % (19-41); Mean Corpuscular Volume 97.1 fL (80-94); Mean Platelet Vol. 10.8 fl (6.2-12.0); Monocyte# 1.09 X10^3/uL; Monocyte% 9.5 % (0-10); NRBC Flagged by Analyzer 0 % (0-5); Neutrophil % 78.1 % (47-70); Platelet Count 100 K/mm3 (150-450); RBC Distribution Width SD 50.4 fl (35.1-43.9); Red Blood Count 4.77 M/mm3 (4.6-6.2); White Blood Count 11.5 K/mm3 (4.4-11.0)
[2023-11-14 11:58] LABS: Vitamin D,25 Hydroxy 37.1 ng/mL
[2023-11-14 12:02] LABS: ALB/GLOB Ratio 0.8 RATIO (0.9-2.4); AST(SGOT) 14 U/L (15-37); Alanine Aminotransfer ALT/SGPT 21 U/L (16-61); Albumin, Serum 3.3 g/dL (3.2-5.0); Alkaline Phosphatase 71 U/L (45-117); Anion Gap 4 (5-15); BUN 27 mg/dL (7-18); BUN/Creat Ratio 19.1 RATIO (10-20); Calcium,Total 9.3 mg/dL (8.5-10.1); Chloride 108 mmol/L (98-107); Cholesterol 147 mg/dL (200); Creatinine, Serum 1.41 mg/dL (0.70-1.30); EST Glomerular Filtration Rate 52 mL/min (>60); Est Glom Filt Rate - Afr Amer 63 mL/min (>60); Globulin 3.9 g/dL (2.2-4.2); Glucose 82 mg/dL (74-106); High Density Lipoprotein 58 mg/dL; Protein, Total 7.2 g/dL (6.4-8.2); Sodium Level 139 mmol/L (136-145); Thyroid Stim Hormone (TSH) 0.96 uIU/mL (0.358-3.74); Triglycerides 110 mg/dL; Very Low Density Lipoprotein 22 mg/dL (5-40)
== END | disposition home or self-care (01) ==
LOC: LAB 10:54
PROVIDERS: PCP Family Medicine Geriatric Medicine; Referring Provider Family Medicine Geriatric Medicine; Visit Provider Family Medicine Geriatric Medicine
DX: R53.83 Other fatigue (principal); E55.9 Vitamin D deficiency, unspecified; E78.5 Hyperlipidemia, unspecified
CPT/HCPCS: 36415; 80053; 80061; 82306; 84443; 85025

== ENCOUNTER → 2023-11-20 | Outpatient (CLI) | payer MEDICARE, OTHER, SELFPAY | END | disposition home or self-care (01) | LOC: PSN 11:41 | PROVIDERS: PCP Family Medicine Geriatric Medicine; Referring Provider Family Medicine Geriatric Medicine; Visit Provider Family Medicine Geriatric Medicine | DX: I50.20 Unspecified systolic (congestive) heart failure (principal) | CPT/HCPCS: 93005 ==

== ENCOUNTER 2023-12-12 10:30 | Outpatient (RCR) | payer MEDICARE, OTHER, SELFPAY ==
--- NOTE | 2023-11-08 10:33 | HP.PTEVAL_ITS ---
Patient's Visit Information Visit Information Visit Information: BENITO HILL is a 78 year old M referred to Physical Therapy by Dr. Sree Ash MD with a diagnosis of LUMBAR DISC DISEASE. Date of Evaluation: 11/08/23 Physical Therapist: Benito Inman, PT, Cert MDT, OCS Visit Plan Frequency: 2x /Week Duration: 4 Weeks Plan: PT INTERVENTIONS LE FLEXABLITY ,LUMBAR ROM ,DLS ,POSTURAL EX'S AND MOD ALTIES NEEDED Subjective Subjective: This 78 y/o male presents to physical therapy with low back pain . Patient has had lumbar many years . Patient seen DR x-rays DDD. Recommended PT . Patient has symmetrical lumbar pain. Aggravating lifting ,walking/standing <10 min. Alleviating factors sitting and sitting. Coughing/sneezing - . Bowel/bladder -. Denies paresthesia/tingling -. Patient completed dosage of medication. Patient pain affects sleeping. Patient condition affects QOL and function. Patient goals to have no pain. Patient had h/o left CORDELIA ,PRECAUTION ( pacemaker) SOCAIL: Single VOCATION: retired Pain Bilateral Back: Pain Intensity (Out of 10): 2 Pain Intensity Range: 10 Objective Objective: POSTURE: mild forward posture ,flat spine GAIT: reciprocal pattern sloe keegan mild forward posture NEURO: denies paresthesia/tingling ,L3-4,L4-5,L5S1 1/3 MMT: quads/hams 4/5 ,hip flexion 4/5 ,ankle 4/5 PALPATION: unremarkable LUMBAR ROM: flexion mod loss ,extension mod severe loss ,side glides mod loss FLEXABILITY: hamstrings mod tight Special Tests L/S Slump test left side: Negative L/S Slump test right side: Negative L/S Left Straight Leg Raise: Negative L/S Right Straight Leg Raise: Negative Lumbar Standing: Flexion - Mechanical Response: No effect Lumbar Standing: Flexion - Symptoms During Testing: Increases Lumbar Standing: Flexion - Symptoms After Testing: No worse Lumbar Standing: Extension - Mechanical Response: No effect Lumbar Standing: Extension - Symptoms During Testing: Increases Lumbar Standing: Extension - Symptoms After Testing: No worse Lumbar Standing: Right Side Glides - Mechanical Response: No effect Lumbar Standing: Right Side [place] - Symptoms During Testing: No effect Lumbar Standing: Right Side [place] - Symptoms After Testing: No effect Lumbar Standing: Left Side [place] - Mechanical Response: No effect Lumbar Standing: Left Side [place] - Symptoms During Testing: No effect Lumbar Standing: Left Side [place] - Symptoms After Testing: No effect Lumbar Lying: Flexion - Mechanical Response: No effect Lumbar Lying: Flexion - Symptoms During Testing: No effect Lumbar Lying: Flexion - Symptoms After Testing: No effect Comments:: tightness Balance/Special Test Scores Oswestry Low Back Score: 12 Goals Goal 1:: Patient to be I with HEP for back Goal Time Frame: 4-6 Weeks Goal 2:: Patient to demonstrate 50% improvement with less pain and improved functioin Goal Time Frame: 4-6 Weeks Goal 3:: Patient to improve lumbar ROM for function of recovery to put shoes. Goal Time Frame: 4-6 Weeks Goal 4:: Patient to improve back oswestry score by 5 points to improve QOL and function Goal Time Frame: 4-6 Weeks Goal 5:: Patient to be able to walk and stand > 15 mins with less pain Goal Time Frame: 4-6 Weeks Rehabilitation Potential Physical Therapy Diagnosis: This patient has lumbar pain with decrease ROM ,pain with motion testing and positioning and worse with walking and standing thus benefit from skilled PT Rehabilitation Potential: Good Anticipated Interventions Patient/Client Instruction: Educate patient on: Condition and Plan of Care For the Purpose of:: To decrease pain, To increase ROM, To improve muscle performance and motor function, To improve ability to perform ADL's, To increase tolerance to activity/condition/position, To improve ability of physical actions for home/community/work/leisure and To improve health of tissue Therapeutic Exercise to Include: Strength training, Body mechanics, Postural training, Flexibilty training and Dynamic Lumbar Stabilization For the Purpose of:: To decrease pain, To increase ROM, To improve muscle performance and motor function, To increase tolerance to activity/condition/position, To improve ability of physical actions for home/community/work/leisure, To improve health of tissue, To decrease soft tissue restriction, To increase flexibility/ROM, To reduce risk of recurrence, To prevent re-injury and To improve tolerance to ADL's TENS: Yes IF ES: Yes Cryotherapy (ice pack, ice massage): Yes Thermo therapy (hot pack): Yes Ultrasound (thermal/non thermal): Yes For the Purpose of:: To decrease pain, To increase ROM, To improve nutrient delivery to tissue, To increase oxygenation perfusion, To improve health of tissue and To decrease soft tissue restriction Text: Thank you for the opportunity to evaluate your patient. For Medicare and Medicare HMO plans, please review the plan of care and approve it. It will need to be FAXED BACK to us at [phone] for Medicare purposes. For Medicare only, by signing this I certify the plan of care. Please let me know if there are questions or concerns regarding this plan of care. Physician Signature: Date:
--- NOTE | 2024-03-06 12:44 | HP.PTDCNRP_ITS ---
Patient Information Patient Information: BENITO HILL was seen in my office for initial evaluation on 11/08/23. The following Plan of Care was established for this patient: POC Established Initial Frequency: 2x /Week Initial Duration: 4 Weeks Anticipated Interventions Patient/Client Instruction: Educate patient on: Condition and Plan of Care For the Purpose of:: To decrease pain, To increase ROM, To improve muscle performance and motor function, To improve ability to perform ADL's, To increase tolerance to activity/condition/position, To improve ability of physical actions for home/community/work/leisure and To improve health of tissue Therapeutic Exercise to Include: Strength training, Body mechanics, Postural training, Flexibilty training and Dynamic Lumbar Stabilization For the Purpose of:: To decrease pain, To increase ROM, To improve muscle performance and motor function, To increase tolerance to activity/c ondition/position, To improve ability of physical actions for home/community/work/leisure, To improve health of tissue, To decrease soft tissue restriction, To increase flexibility/ROM, To reduce risk of recurrence, To prevent re-injury and To improve tolerance to ADL's TENS: Yes IF ES: Yes Cryotherapy (ice pack, ice massage): Yes Thermo therapy (hot pack): Yes Ultrasound (thermal/non thermal): Yes For the Purpose of:: To decrease pain, To increase ROM, To improve nutrient delivery to tissue, To increase oxygenation perfusion, To improve health of tissue and To decrease soft tissue restriction Last Seen Last Seen: This patient was last seen in our office . Pertinent comments regarding their Physical therapy will appear below: Patient was seen for PT for back with HEP At this point I will be discontinuing this patient from physical therapy. I would be happy to see this patient again in the future if found appropriate by the physician. Thank you! Benito Inman, PT, Cert MDT, OCS Balance/Gait/Functional tests Balance/Special Test Scores Oswestry Low Back Score: 12
== END 2023-12-12 19:00 | disposition home or self-care (01) ==
LOC: PT 10:30
PROVIDERS: PCP Family Medicine Geriatric Medicine; Visit Provider Family Medicine Geriatric Medicine
DX: M54.50 Low back pain, unspecified (principal)
CPT/HCPCS: 97110; 97162

== ENCOUNTER → 2024-01-09 | Outpatient (CLI) | payer MEDICARE, OTHER, SELFPAY ==
[2024-01-09 11:01] LABS: Absolute Lymphocyte Count 1.69 X10^3/uL (0.83-4.51); Absolute Neutrophil Count 4.1 X10^3/uL (2.0-7.7); Basophil# 0.08 X10^3/uL; Basophil% 1.2 % (0-1); Eosinophil# 0.14 X10^3/uL; Eosinophils% 2.1 % (0-5); Hematocrit 45.1 % (40-54); Hemoglobin 14.2 g/dL (13.0-16.5); Lymphocyte # 1.69 X10^3/ul (0.83-4.51); Lymphocyte % 25.6 % (19-41); Mean Corp Hgb Conc 31.5 g/dL (32-36); Mean Corpuscular Hgb 30.7 pg (27.0-32.0); Mean Corpuscular Volume 97.4 fL (80-94); Mean Platelet Vol. 10.4 fl (6.2-12.0); Monocyte# 0.57 X10^3/uL; Monocyte% 8.6 % (0-10); NRBC Flagged by Analyzer 0 % (0-5); Neutrophil % 62.2 % (47-70); Platelet Count 128 K/mm3 (150-450); RBC Distribution Width CV 14.3 % (11.6-14.6); RBC Distribution Width SD 51.1 fl (35.1-43.9); Red Blood Count 4.63 M/mm3 (4.6-6.2); White Blood Count 6.6 K/mm3 (4.4-11.0)
[2024-01-09 11:11] LABS: BNP,B-Type NATRIURETIC PEPTIDE 174.3 pg/mL (0-100)
[2024-01-09 11:26] LABS: Anion Gap 0 (5-15); BUN 20 mg/dL (7-18); BUN/Creat Ratio 14.1 RATIO (10-20); Calcium,Total 8.9 mg/dL (8.5-10.1); Chloride 111 mmol/L (98-107); Creatinine, Serum 1.42 mg/dL (0.70-1.30); EST Glomerular Filtration Rate 51 mL/min (>60); Est Glom Filt Rate - Afr Amer 62 mL/min (>60); Glucose 106 mg/dL (74-106); Potassium 3.8 mmol/L (3.5-5.1); Sodium Level 140 mmol/L (136-145); Thyroid Stim Hormone (TSH) 1.54 uIU/mL (0.358-3.74)
== END | disposition home or self-care (01) ==
LOC: LAB 10:33
PROVIDERS: PCP Family Medicine Geriatric Medicine; Referring Provider Nurse Practitioner Gerontology; Visit Provider Nurse Practitioner Gerontology
DX: R53.83 Other fatigue (principal); I42.9 Cardiomyopathy, unspecified; R06.00 Dyspnea, unspecified
CPT/HCPCS: 36415; 80048; 83880; 84443; 85025

== ENCOUNTER → 2024-01-17 | Outpatient (CLI) | payer MEDICARE, OTHER, SELFPAY ==
--- OUTSIDE RECORDS SUMMARY | 2024-01-17 10:03 | XMS RPT_ITS | CCD ---
Author Name Unknown Address [address] [place] [address] Organization [facility] Care Team Providers Care Environmental Educator Name Role Phone Irwin Walton MD Unavailable [phone] Jori Lieberman DO Primary Care Provider Asaf Castro Chi Primary Care Provider RIKI JAIME Attending Unavailable ASAF CASTRO [facility] Primary Care Unavailable ASAF CASTRO [facility] Primary Care Unavailable Medications Completed/Discontinued Medications Medication Drug Class(es) Dates Sig (Normalized) Sig (Original) amiodarone hydrochloride 200 mg oral tablet (4 sources) Antiarrhythmic take 1 tablet by ezio th once daily amiodarone (PACERONE) 200 mg tablet Take 200 mg by mouth once daily. 0 Active Problems Active Problems Problem Classification Problem Date Documented Date Episodic/Chronic Cardiac dysrhythmias (8 sources) Atrial flutter; Translations: [Unspecified atrial flutter] Onset: 09-27-2019 09-30-2019 Chronic Conduction disorders (10 sources) Cardiac defibrillator in situ; Translations: [Presence of automatic (implantable) cardiac defibrillator] Onset: 09-30-2019 09-30-2019 Chronic Nutritional deficiencies (4 sources) Deficiency of macronutrients; Translations: [Unspecified severe protein-calorie malnutrition] Onset: 09-28-2019 09-30-2019 Chronic Other aftercare (1 source) Long-term current use of anticoagulant; Translations: [MCFP (current) use of anticoagulants] 09-30-2023 Episodic Other congenital anomalies (4 sources) Porokeratosis; Translations: [Other specified congenital malformations of skin] Onset: 01-23-2011 01-23-2011 Chronic Residual codes; unclassified (1 source) Other specified personal risk factors, not elsewhere classified; Translations: [Other specified personal history presenting hazards to health] Onset: 11-12-2023 11-12-2023 Episodic Past or Other Problems Problem Classification Problem Date Documented Date Episodic/Chronic Acquired foot deformities (4 sources) Acquired deformity of toe; Translations: [Other deformities of toe(s) (acquired), unspecified foot] Onset: 01-23-2011 01-23-2011 Episodic Other aftercare (1 source) MCFP (current) use of anticoagulants; Translations: [MCFP (current) use of anticoagulants] Onset: 09-30-2023 Episodic Other and unspecified benign neoplasm (4 sources) Benign neoplasm of colon; Translations: [Benign neoplasm of colon, unspecified] Onset: 02-16-2009 02-16-2009 Episodic Other connective tissue disease (4 sources) Pain in limb; Translations: [Pain in unspecified limb] Onset: 01-23-2011 01-23-2011 Episodic Other screening for suspected conditions (not mental disorders or infectious disease) (4 sources) Patient encounter status; Translations: [Encounter for screening for malignant neoplasm of colon] Onset: 02-16-2009 02-16-2009 Episodic Residual codes; unclassified (4 sources) History of ablation of atrioventricular node; Translations: [Other specified postprocedural states] Onset: 09-30-2019 09-30-2019 Episodic Skin and subcutaneous tissue infections (4 sources) Disorder of nail; Translations: [Cellulitis of unspecified toe] Onset: 01-23-2011 01-23-2011 Episodic Results Test Name Value Interpretation Reference Range Facil ity Vital Signs Date Time Vital Sign Value Performing Clinician Thor carpenter 11-19-2023 08:59-0500 Body temperature 97.3 [degF] Nurse Georgina Work Phone: [facility] 11-19-2023 08:59-0500 Diastolic blood pressure 56 mm[Hg] Nurse Poyovani Work Phone: [facility] 11-19-2023 08:59-0500 Systolic blood pressure 98 mm[Hg] Nurse Poyovani Work Phone: [facility] 09-30-2023 10:03-0500 Body height 190.5 cm Riki Jaime MD Work Phone: [facility] 09-30-2023 10:03-0500 Body weight 67.59 kg Riki Jaime MD Work Phone: [facility] 09-30-2023 10:03-0500 Diastolic blood pressure 53 mm[Hg] Riki Jaime MD Work Phone: [facility] 09-30-2023 10:03-0500 Heart rate 71 /min Riki Jaime MD Work Phone: [facility] 09-30-2023 10:03-0500 SaO2% (BldA) [Mass fraction] 99 % Riki Jaime MD Work Phone: [facility] 09-30-2023 10:03-0500 Systolic blood pressure 90 mm[Hg] Riki Jaime MD Work Phone: [facility] Encounters Encounter Date Encounter Type Care Provider Facility Start: 11-19-2023 End: 11-19-2023 ambulatory ASAF CHI MATTHEW Facility:[facility] Start: 11-19-2023 End: 11-19-2023 Nursing evaluation of patient and report Nurse Card Ag [place] [facility] Work Phone: [facility] Procedures Date Procedure Procedure Detail Performing Clinician Start: 09-30-2023 Ecg routine ecg w/le ast 12 lds w/i&r Riki Jaime MD Work Phone: Plan of Treatment Date Care Activity Detail Author Start: 11-07-2030 Urine microalbumin profile DTaP,Tdap,Td Vaccine (2 - Td or Tdap) [facility] Start: 11-12-2026 Diabetes Screening Diabetes Screenin g [facility] Start: 11-25-2023 Advance Directive Discussion Advance Directive Discussion [facility] Start: 11-25-2023 [facility] Start: 07-26-2023 Influenza vaccination Influenza Vacc ine (#1) [facility] Start: 11-25-2022 Advance Directive Discussion Advance Directive Discussion [facility] Start: 11-25-2022 Depression Assessment Depression Ass essment [facility] Start: 10-02-2022 Diabetes Screening Diabetes Screenin g [facility] Start: 2010 Pneumococcal Vaccine : 65+ (1 - PCV) Pneumococcal Vaccine: 65+ (1 - PCV) [facility] Start: 2005 RSV Vaccine (1 - 1-d ose 60+ series) RSV Vaccine (1 - 1-dose 60+ series) [facility] Start: 1995 Shingrix Vaccine (1 of 2) Shingrix V accine (1 of 2) [facility] Start: 1964 Urine microalbumin profile DTaP,Tdap,Td Vaccine (1 - Tdap) [facility] Start: 1963 Hepatitis C Screening Hepatitis C [facility] Start: 1963 Hepatitis C screening Hepatitis C [facility] Start: 02-15-1946 Covid-19 Vaccine (#1) Covid-19 Vacci ne (#1) [facility] [place] [facility] Payers Date Payer Category Payer Medicare [id number] 2021 Unknown MMO MMO MEDICARE SUPPLEMENT [id number] 2021-Present [phone] [address] [place] [address] Indemnity [id number] 2010 Medicare MEDICARE MEDICAR E A AND B [id number] 2010-Present [phone] [address] [address] [place] [address] Medicare [id number] 2010 Medicare [id number] Social History Date Type Detail Facility Start: 01-12-2016 End: 09-25-2023 Tobacco smoking status NHIS Ex-smoker [facility] End: 11-25-2019 History of tobacco use Current smoker [facility] End: 11-25-2019 History of tobacco use Cigarette Smoker [facility] Start: 01-12-2016 End: 09-30-2023 Cigarettes smoked current (pack per day) - Reported 0.5 [facility] Start: 01-12-2016 End: 09-25-2023 Tobacco use and exposure Smokeless tobacco non-user [facility] Start: 07-08-2022 End: 11-12-2023 Alcohol intake Current non-drinker of alcohol (finding) [facility] Start: 09-30-2019 End: 09-30-2023 Tobacco use panel [facility] PHQ-2 Score 0 [facility] Start: 1945 Sex Assigned At Not on file [facility] Start: 09-25-2023 Tobacco Comment less than a pack per day [facility] Nurse Note 11-19-2023 Danyell Cancino RN - 11/19/2023 9:00 AM EST Note Date & Type Note Facility 11-19-2023 Nurse Note Pt comes in today for wound check. Lt ACW incision is open to air with steri strips intact. Incision is well approximated with no redness, bleeding or drainage. Minimal edema just over capacitor. Pt denies pain at site. Pt reports intermittent dizziness. BP 98/56 mmHg. Pt reports he was started on Effexor last week. Pt encouraged to monitor BP at home. Speak with MD who prescribed effexor if dizziness persists. Pt voices understanding. Danyell Cancino RN documented in this encounter [facility] Clinical Note 11-12-2023 Note Date & Type Note Facility 11-12-2023 Note HNO ID: [id number] Author: Charlee Gant RN Service: ? Author Type: Registered Nurse Type: Nursing Progress Note Filed: 11/12/2023 2:51 PM Note Text: 1450 patient D/C to home [facility] Clinical Note 11-12-2023 Note Date & Type Note Facility 11-12-2023 Note HNO ID: [id number] Author: Charlee Gant, CHANA Service: ? Author Type: Registered Nurse Type: Nursing Progress Note Filed: 11/12/2023 7:25 AM Note Text: 0723 Patient admitted to POD, pre procedure teaching at bedside, review of medications with patient [facility] Note 10-01-2023 Telephone Encounter - Danyell Cancino RN - 10/01/2023 4:00 PM ESTTelephone Encounter - Yoko Ramirez LPN - 10/01/2023 1:22 PM ESTTelephone Encounter - Jovana Albarado - 10/01/2023 12:08 PM EST Note Date & Type Note Facility 10-01-2023 Miscellaneous Notes Formattin g of this note might be different from the original. Pt's name has been added to [facility] procedure board. Danyell Cancino RN Patient returned call to [facility] to confirm date for an ICD Replacement on 10/[address] Jaime. Patient verbalizes understanding to procedure instructions including to hold Eliquis for 3 days prior to change out. Yoko Ramirez LPN Patient is scheduled for an ICD Replacement on 10/[address] Jaime. The hospital will call the day before between 2-5pm with your arrival time. You should not eat or drink after midnight the day before the procedure. You will need a tier truck driver when released from the hospital. You should continue to take medications as prescribed the morning of the procedure with just a sip of water but Hold Eliquis for 3 days prior to change out Left message for Benito Whittington to call back and confirm date & instructions Jovana Albarado documented in this encounter [facility] Progress note 09-30-2023 Note Date & Type Note Facility 09-30-2023 Note HNO ID: [id number] Author: Riki Jaime MD Service: ? Author Type: Physician Type: Progress Notes Filed: 09/30/2023 10:48 AM Note Text: [facility] SECTION OF CARDIAC PACING and ELECTROPHYSIOLOGY OUTPATIENT VISIT DATE September 30, 2023 OUTPATIENT VISIT TYPE NEW PRIMARY CARE PHYSICIAN: Asaf Castro MD [address] [place] [address] REFERRING PHYSICIAN: Anupam Reece MD ([place], [place]). HISTORY OF PRESENT ILLNESS: 78-year-old male with history of essential hypertension, cardiomyopathy with severe LV systolic dysfunction, persistent atrial fibrillation/atypical atrial flutter, and oral anticoagulation, status post [employer] MIXER-D system implantation in 2019 with concurrent AV di ablation. 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 Benito reports feeling well, has his ups and downs, denies palpitation, dyspnea, chest discomfort, or ICD shocks. He is on oral anticoagulation with Eliquis with no obvious bleeding complications. He is on appropriate medical regimen. Apparently he is on amiodarone as well. Device interrogation from August 2023 showed stable lead parameters, ongoing mode switch for close to a year, battery at POWER GENERATION TECHNICIAN. ECG shows atrial flutter with ventricular pacing. Most recent echocardiogram showed EF of 30% Pharmacologic nuclear stress test showed apical scar with no reversibility and EF of 31%. PAST MEDICAL HISTORY Diagnosis Date Acid reflux Allergy, unspecified not elsewhere classified Aneurysm, thoracic aortic (HCC) Arrhythmia Arthritis neck Benign neoplasm of colon Cardiac resynchronization therapy defibrillator ([employer] MIXER-D) in place Chronic obstructive pulmonary disease (COPD) ([facility]) Congenital anomalies of pancreas Coronary artery disease Essential hypertension Hyperlipemia ICD (implantable cardioverter-defibrillator) in place Longstanding persistent atrial fibrillation (HCC) MVP (mitral valve prolapse) Other and unspecified hyperlipidemia Other premature beats Other 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 apixaban (ELIQUIS) 5 mg tab(s) Take 5 mg by mouth two times a day. sacubitril-valsartan (ENTRESTO) 97-103 mg tablet Take 1 tablet by mouth two times a day. metoprolol succinate ER (TOPROL XL) 25 mg 24 hr tablet Take 12.5 mg by mouth once daily. omega-3s/dha/epa/fish oil/D3 (VITAMIN-D + OMEGA-3 ORAL) Take by mouth. One tab once a week vit C/E/Zn/coppr/lutein/zeaxan (PRESERVISION AREDS-2 ORAL) Take 2 tablets by mouth once daily. amiodarone (PACERONE) 200 mg tablet Take 200 mg by mouth once daily. SIMVASTATIN 20 mg ORAL tablet Take 20 mg by mouth daily at bedtime. rivaroxaban (XARELTO) 20 mg tablet Take 1 tablet by mouth daily with dinner. DO NOT restart until 10/06/19. (Patient not taking: Reported on 09/04/2023) potassium chloride (K-TAB) 10 mEq tablet Take 20 mEq by mouth once daily. (Patient not taking: Reported on 09/04/2023) REVIEW OF SYSTEMS: Review of Systems Constitutional: Negative for fatigue and fever. HENT: Negative for hearing loss. Eyes: Negative for pain. Respiratory: Negative for cough and shortness of breath. Cardiovascular: Negative for chest pain, palpitations and leg swelling. Gastrointestinal: Negative for abdominal pain and blood in stool. Endocrine: Negative for cold intolerance. Genitourinary: Negative for hematuria. Musculoskeletal: Negative for back pain. Skin: Negative for pallor. Neurological: Negative for dizziness and syncope. Psychiatric/Behavioral: The patient is not nervous/anxious. PHYSICAL EXAMINATION: BP 90/53 (BP Site: Left Arm, BP Position: Sitting, BP Cuff Size: Regular Adult) Pulse 71 Ht 6' 3 (1.905 m) Wt 149 lb (67.6 kg) SpO2 99% BMI 18.62 kg/m? BP w/Orthostatic Vitals Date and Time Orthostatic BP Orthostatic Pulse BP Pulse BP Position BP Site BP Cuff Size 09/30/23 1003 -- -- 90/53 71 Sitting Left Arm Regular Adult Physical Exam Constitutional: General: He is not in acute distress. Appearance: He is well-developed. HENT: Head: Normocephalic and atraumatic. Eyes: General: No scleral icterus. Conjunctiva/sclera: Conjunctivae normal. Pupils: Pupils are equal, round, and reactive to light. Cardiovascular: Rate and Rhythm: Normal rate and regular rhythm. Pulmonary: Effort: No respiratory distress. Breath sounds: No stridor. No wheezing or rales. Abdominal: Tenderness: There is no abdominal tenderness. Skin: General: Skin is warm and dry. Findings: No rash. Neurological: Mental Status: He is alert and oriented to pers (more content not included)... [facility] History of Present illness Narrative 09-30-2023 Riki Jaime MD - 09/30/2023 10:38 AM EST Note Date & Type Note Facility 09-30-2023 History of Presen t illness Narrative Images from the original note were not included. [facility] SECTION OF CARDIAC PACING and ELECTROPHYSIOLOGY OUTPATIENT VISIT DATE September 30, 2023 OUTPATIENT VISIT TYPE NEW PRIMARY CARE PHYSICIAN: Asaf Castro MD [address] [facility] [address] [place] [address] REFERRING PHYSICIAN: Anupam Reece MD ([place], [place]). HISTORY OF PRESENT ILLNESS: 78-year-old male with history of essential hypertension, cardiomyopathy with severe LV systolic dysfunction, persistent atrial fibrillation/atypical atrial flutter, and oral anticoagulation, status post [employer] MIXER-D system implantation in 2019 with concurrent AV di ablation. 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 Benito reports feeling well, has his ups and downs, denies palpitation, dyspnea, chest discomfort, or ICD shocks. He is on oral anticoagulation with Eliquis with no obvious bleeding complications. He is on appropriate medical regimen. Apparently he is on amiodarone as well. Device interrogation from August 2023 showed stable lead parameters, ongoing mode switch for close to a year, battery at POWER GENERATION TECHNICIAN. ECG shows atrial flutter with ventricular pacing. Most recent echocardiogram showed EF of 30% Pharmacologic nuclear stress test showed apical scar with no reversibility and EF of 31%. PAST MEDICAL HISTORY Diagnosis Date Acid reflux Allergy, unspecified not elsewhere classified Aneurysm, thoracic aortic (HCC) Arrhythmia Arthritis neck Benign neoplasm of colon Cardiac resynchronization therapy defibrillator ([employer] MIXER-D) in place Chronic obstructive pulmonary disease (COPD) (HCC) Congenital anomalies of pancreas Coronary artery disease Essential hypertension Hyperlipemia ICD (implantable cardioverter-defibrillator) in place Longstanding persistent atrial fibrillation (HCC) MVP (mitral valve prolapse) Other and unspecified hyperlipidemia Other premature beats Other 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 apixaban (ELIQUIS) 5 mg tab(s) Take 5 mg by mouth two times a day. sacubitril-valsartan (ENTRESTO) 97-103 mg tablet Take 1 tablet by mouth two times a day. metoprolol succinate ER (TOPROL XL) 25 mg 24 hr tablet Take 12.5 mg by mouth once daily. omega-3s/dha/epa/fish oil/D3 (VITAMIN-D + OMEGA-3 ORAL) Take by mouth. One tab once a week vit C/E/Zn/coppr/lutein/zeaxan (PRESERVISION AREDS-2 ORAL) Take 2 tablets by mouth once daily. amiodarone (PACERONE) 200 mg tablet Take 200 mg by mouth once daily. SIMVASTATIN 20 mg ORAL tablet Take 20 mg by mouth daily at bedtime. rivaroxaban (XARELTO) 20 mg tablet Take 1 tablet by mouth daily with dinner. DO NOT restart until 10/06/19. (Patient not taking: Reported on 09/04/2023) potassium chloride (K-TAB) 10 mEq tablet Take 20 mEq by mouth once daily. (Patient not taking: Reported on 09/04/2023) REVIEW OF SYSTEMS: Review of Systems Constitutional: Negative for fatigue and fever. HENT: Negative for hearing loss. Eyes: Negative for pain. Respiratory: Negative for cough and shortness of breath. Cardiovascular: Negative for chest pain, palpitations and leg swelling. Gastrointestinal: Negative for abdominal pain and blood in stool. Endocrine: Negative for cold intolerance. Genitourinary: Negative for hematuria. Musculoskeletal: Negative for back pain. Skin: Negative for pallor. Neurological: Negative for dizziness and syncope. Psychiatric/Behavioral: The patient is not nervous/anxious. PHYSICAL EXAMINATION: BP 90/53 (BP Site: Left Arm, BP Position: Sitting, BP Cuff Size: Regular Adult) Pulse 71 Ht 6' 3 (1.905 m) Wt 149 lb (67.6 kg) SpO2 99% BMI 18.62 kg/m BP w/Orthostatic Vitals Date and Time Orthostatic BP Orthostatic Pulse BP Pulse BP Position BP Site BP Cuff Size 09/30/23 1003 -- -- 90/53 71 Sitting Left Arm Regular Adult Physical Exam Constitutional: General: He is not in acute distress. Appearance: He is well-developed. HENT: Head: Normocephalic and atraumatic. Eyes: General: No scleral icterus. Conjunctiva/sclera: Conjunctivae normal. Pupils: Pupils are equal, round, and reactive to light. Cardiovascular: Rate and Rhythm: Normal rate and regular rhythm. Pulmonary: Effort: No respiratory distress. Breath sounds: No stridor. No wheezing or rales. Abdominal: Tenderness: There is no abdominal tenderness. Skin: General: Skin is warm and dry. Findings: No rash. Neurological: Mental Status: He is alert and oriented to person, place, and time. Psychiatric: Mood and Affect: Mood normal. I have personally reviewed the Electrocardiogram Assessment PLAN AND RECOMMENDATIONS: 78-year-old male with cardiomyopathy, severe LV systolic function, [employer] MIXER-D system at POWER GENERATION TECHNICIAN, ongoing atrial fibrillation, on oral anticoagulation and amiodarone. ASSESSMENT/PLAN: 1. Cardiac resynchronization therapy defibrillator ([employer] MIXER-D) in place - ICD9: V45.02, ICD10: Z95.810 (primary diagnosis) Device reached POWER GENERATION TECHNICIAN a few weeks ago. We will arrange for [facility] replacement. The device is in a subpectoral location due to BMI of 19. We will discontinue oral anticoagulation for 72 hours prior to procedure. The patient will be contacted shortly for scheduling. - ECG B/O W INTERP (MED OFFICE) 2. Atrial flutter, unspecified type (HCC) - ICD9: 427.32, ICD10: I48.92 Ongoing, apparently asymptomatic. If there is no clear plans for sinus rhythm caodaism, would recommend to discontinue amiodarone. - ECG B/O W INTERP (MED OFFICE) 3. MCFP (current) use of anticoagulants - ICD9: V58.61, ICD10: Z79.01 No obvious bleeding complications, will hold and take elation prior to device replacement. 4. CHB (complete heart block) (HCC) - ICD9: 426.0, ICD10: I44.2 Status post AV node ablation, addressed with dual-chamber system implantation. Riki Jaime MD CONTACT INFORMATION: Riki Jaime MD documented in this encounter [facility] Nurse Note 09-30-2023 Marian Cherry MA - 09/30/2023 10:07 AM EST Note Date & Type Note Facility 09-30-2023 Nurse Note No cardiac complaints today. Marian Cherry MA documented in this encounter [facility] Note 09-02-2023 Telephone Encounter - Quinten Cannon LPN - 09/02/2023 1:33 PM EDTTelephone Encounter - Nicolle Hawthorne - 09/02/2023 11:37 AM EDTTelephone Encounter - Quinten Godinez LPN - 08/29/2023 3:52 PM EDT Note Date & Type Note Facility 09-02-2023 Miscellaneous Notes Formattin g of this note might be different from the original. Spoke with [facility] at [facility]. She reports it was previously faxed with the consult paperwork. However She will reprint and fax again. Quinten Cannon LPN May need to check with [facility]. Not a [facility] patient. Nicolle Hawthorne MA No, but we need the most recent device interrogation report from [facility]. Riki Jaime MD Pt called in inquiring if he should complete an labs or cardiac testing prior to his September apt. Quinten Cannon LPN documented in this encounter [facility] Evaluation note Note Date & Type Note Facility documented in this encounter [facility] Evaluation note Note Date & Type Note Facility documented in this encounter [facility] Summary Purpose Family History No Family History Records FoundNo Family History Records Found Advance Directives No Advanced Directives Records FoundNo Advanced Directives Records Found Additional Source Comments (unrecognized sect ion and content) No Status Records FoundNo Status Records Found INFORMATION SOURCE (unrecogn ized section and content) DATE CREATED AUTHOR AUTHOR'S ORGANIZ ATION 01/03/2024 [facility] Source Comments (unrecognize d section and content) In the event this informatio n is protected by the Federal Confidentiality of Alcohol and Drug Abuse Patient Records regulations: The Federal rules restrict any use of the information to criminally investigate or prosecute any alcohol or drug abuse patient.[facility] the event this information is protected by the Federal Confidentiality of Alcohol and Drug Abuse Patient Records regulations: The Federal rules restrict any use of the information to criminally investigate or prosecute any alcohol or drug abuse patient.[facility] the event this information is protected by the Federal Confidentiality of Alcohol and Drug Abuse Patient Records regulations: The Federal rules restrict any use of the information to criminally investigate or prosecute any alcohol or drug abuse patient.[facility] the event this information is protected by the Federal Confidentiality of Alcohol and Drug Abuse Patient Records regulations: The Federal rules restrict any use of the information to criminally investigate or prosecute any alcohol or drug abuse patient.[facility] Reason for Visit (unrecogniz ed section and content) Reason Comments New Patient Re-establish care di charli gen change Reason Comments Preparations For Procedures Reason Comments Wound Check Care Teams (unrecognized sec tion and content) Environmental Educator Relationship Specialty Start Date End Date Matthew, Asaf Jung [address] [place], [place] [address] PCP - General Gerontology 09/30/23 Irwin Walton MD Referring Gastroenterology 06/11/17 Environmental Educator Relationship Specialty Start Date End Date Matthew, Asaf Jung [address] [place], [place] [address] PCP - General Gerontology 09/30/23 Irwin Walton MD Referring Gastroenterology 06/11/17 Environmental Educator Relationship Specialty Start Date End Date MatthewAsaf Chi [address] [place], [place] [address] PCP - General Gerontology 09/30/23 Irwin Walton MD Referring Gastroenterology 06/11/17 FOR RECORDS PERTAINING TO PATIENTS WHO ARE OR HAVE BEEN ENROLLED IN A CHEMICAL DEPENDENCY/SUBSTANCEABUSE PROGRAM, SOME INFORMATION MAY BE OMITTED. This clinical summary was aggregated from multiple sources. Caution should be exercised in using it in the provision of clinical care. This summary normalizes information from multiple sources, and as a consequence, information in this document may materially change the coding, format and clinical context of patient data. In addition, data may be omitted in some cases. CLINICAL DECISIONS SHOULD BE BASED ON THE PRIMARY CLINICAL RECORDS. [facility]. provides no warranty or guarantee of the accuracy or completeness of information in this document.
[2024-01-17 11:35] LABS: Anion Gap 6 (5-15); BUN 27 mg/dL (7-18); BUN/Creat Ratio 18.8 RATIO (10-20); Calcium,Total 9.5 mg/dL (8.5-10.1); Chloride 108 mmol/L (98-107); Creatinine, Serum 1.44 mg/dL (0.70-1.30); EST Glomerular Filtration Rate 50 mL/min (>60); Est Glom Filt Rate - Afr Amer 61 mL/min (>60); Glucose 108 mg/dL (74-106); Potassium 4.2 mmol/L (3.5-5.1); Sodium Level 141 mmol/L (136-145)
== END | disposition home or self-care (01) ==
LOC: LAB 09:33
PROVIDERS: PCP Family Medicine; Referring Provider Nurse Practitioner Gerontology; Visit Provider Nurse Practitioner Gerontology
DX: R06.00 Dyspnea, unspecified (principal)
CPT/HCPCS: 36415; 80048

== ENCOUNTER → 2024-02-04 | Outpatient (CLI) | payer MEDICARE, OTHER, SELFPAY ==
[2024-02-04 10:18] LABS: Absolute Lymphocyte Count 1.32 X10^3/uL (0.83-4.51); Absolute Neutrophil Count 3.2 X10^3/uL (2.0-7.7); Basophil# 0.06 X10^3/uL; Basophil% 1.1 % (0-1); Eosinophil# 0.19 X10^3/uL; Eosinophils% 3.6 % (0-5); Hemoglobin 13.5 g/dL (13.0-16.5); Lymphocyte # 1.32 X10^3/ul (0.83-4.51); Mean Corp Hgb Conc 31.4 g/dL (32-36); Mean Corpuscular Hgb 30.5 pg (27.0-32.0); Mean Corpuscular Volume 97.3 fL (80-94); Mean Platelet Vol. 9.9 fl (6.2-12.0); Monocyte# 0.46 X10^3/uL; Monocyte% 8.7 % (0-10); NRBC Flagged by Analyzer 0 % (0-5); Neutrophil # 3.24 X10^3/uL (2.7-7.7); Neutrophil % 61.2 % (47-70); Platelet Count 106 K/mm3 (150-450); RBC Distribution Width CV 13.3 % (11.6-14.6); RBC Distribution Width SD 47.9 fl (35.1-43.9); Red Blood Count 4.42 M/mm3 (4.6-6.2); White Blood Count 5.3 K/mm3 (4.4-11.0)
[2024-02-04 10:40] LABS: Anion Gap 4 (5-15); BUN 21 mg/dL (7-18); BUN/Creat Ratio 14.4 RATIO (10-20); Calcium,Total 8.8 mg/dL (8.5-10.1); Chloride 109 mmol/L (98-107); Creatinine, Serum 1.46 mg/dL (0.70-1.30); EST Glomerular Filtration Rate 50 mL/min (>60); Est Glom Filt Rate - Afr Amer 60 mL/min (>60); Glucose 168 mg/dL (74-106); Potassium 3.8 mmol/L (3.5-5.1); Sodium Level 140 mmol/L (136-145)
== END | disposition home or self-care (01) ==
LOC: LAB 09:45
PROVIDERS: PCP Family Medicine; Referring Provider Nurse Practitioner Gerontology; Visit Provider Nurse Practitioner Gerontology
DX: R42 Dizziness and giddiness (principal); R55 Syncope and collapse; Z79.899 Other long term (current) drug therapy
CPT/HCPCS: 36415; 80048; 85025

== ENCOUNTER 2024-02-07 16:33 | Emergency (ER) | payer MEDICARE, OTHER, SELFPAY ==
[2024-02-07] VITALS (7 sets, daily range): BP systolic 107–153; BP diastolic 61–91; PULSE 70–81; RESP 13–20; TEMP 36.4–36.9; O2SAT 96–100; BMI 18.9
--- NOTE | 2024-02-07 17:05 | RAD_ITS ---
EXAM: XR CHEST, 1 VIEW CLINICAL INDICATION: Stroke TECHNIQUE: Frontal view of the chest. COMPARISON: 11/05/2022 FINDINGS: LUNGS AND PLEURAL SPACES: Lungs are hyperinflated. No pneumothorax. No effusion. HEART: Unremarkable. Cardiac silhouette not enlarged. MEDIASTINUM: Central airways and mediastinal contour are unremarkable. BONES/JOINTS: Unremarkable. No acute fracture. SOFT TISSUES: Unremarkable. TUBES, LINES AND DEVICES: Left-sided pacemaker in stable position. RAD/Chest 1 View (Portable) IMPRESSION: Pulmonary hyperinflation with no acute pulmonary abnormality. Electronically Signed: Evans Gregg MD at 17:41 EDT ,
[2024-02-07 17:56] LABS: Absolute Lymphocyte Count 1.04 X10^3/uL (0.83-4.51); Basophil# 0.08 X10^3/uL; Basophil% 1.4 % (0-1); Eosinophil# 0.05 X10^3/uL; Eosinophils% 0.9 % (0-5); Hematocrit 45.3 % (40-54); Hemoglobin 14.5 g/dL (13.0-16.5); Lymphocyte # 1.04 X10^3/ul (0.83-4.51); Lymphocyte % 18.5 % (19-41); Mean Corpuscular Hgb 30.6 pg (27.0-32.0); Mean Corpuscular Volume 95.6 fL (80-94); Mean Platelet Vol. 10.1 fl (6.2-12.0); Monocyte# 0.41 X10^3/uL; Monocyte% 7.3 % (0-10); NRBC Flagged by Analyzer 0 % (0-5); Neutrophil # 4.03 X10^3/uL (2.7-7.7); Neutrophil % 71.9 % (47-70); Platelet Count 102 K/mm3 (150-450); RBC Distribution Width CV 13.2 % (11.6-14.6); RBC Distribution Width SD 46.7 fl (35.1-43.9); Red Blood Count 4.74 M/mm3 (4.6-6.2); White Blood Count 5.6 K/mm3 (4.4-11.0)
[2024-02-07 18:07] LABS: Anion Gap 5 (5-15); BUN 19 mg/dL (7-18); BUN/Creat Ratio 13.2 RATIO (10-20); Calcium,Total 9.2 mg/dL (8.5-10.1); Chloride 108 mmol/L (98-107); Creatinine, Serum 1.44 mg/dL (0.70-1.30); EST Glomerular Filtration Rate 50 mL/min (>60); Est Glom Filt Rate - Afr Amer 61 mL/min (>60); Estimated Creatinine Clearance 41.14 ml/min; Glucose 91 mg/dL (74-106); Potassium 4.3 mmol/L (3.5-5.1); Sodium Level 139 mmol/L (136-145)
[2024-02-07 18:14] LABS: International Normalized Ratio 1.4; Prothrombin Time (Protime)PT. 17.2 SECONDS (11.7-14.9)
--- OUTSIDE RECORDS SUMMARY | 2024-02-07 19:51 | XMS RPT_ITS | CCD ---
Author Name Unknown Address [address] [place] [address] Organization [facility] Care Team Providers Care Casting House Worker Name Role Phone Irwin Walton MD Unavailable Jori Lieberman DO Primary Care Provider Asaf [...] source) Long-term current use of anticoagulant; Translations: [FPC (current) use of anticoagulants] 09-30-2023 Episodic Other [...] 01-23-2011 01-23-2011 Episodic Other aftercare (1 source) FPC (current) use of anticoagulants; Translations: [FPC (current) use of anticoagulants] Onset: 09-30-2023 Episodic [...] temperature 97.3 [degF] Nurse Georgina Work Phone: [facility] 11-19-2023 08:59-0500 Diastolic blood pressure 56 mm[Hg] Nurse Poyovani Work Phone: [facility] 11-19-2023 08:59-0500 Systolic blood pressure 98 mm[Hg] Nurse Poyovani Work Phone: [facility] 09-30-2023 10:03-0500 Body height 190.5 cm Riki Jaime MD Work Phone: [facility] 09-30-2023 10:03-0500 Body weight 67.59 kg Riki Jaime MD Work Phone: [facility] 09-30-2023 10:03-0500 Diastolic blood pressure 53 mm[Hg] Riki Jaime MD Work Phone: [facility] 09-30-2023 10:03-0500 Heart rate 71 /min Riki Jaime MD Work Phone: [facility] 09-30-2023 10:03-0500 SaO2% (BldA) [Mass fraction] 99 % Riki Jaime MD Work Phone: [facility] 09-30-2023 10:03-0500 Systolic blood pressure 90 mm[Hg] Riki Jaime MD Work Phone: [facility] Encounters Encounter Date Encounter Type Care Provider Facility Start: 11-19-2023 End: 11-19-2023 ambulatory ASAF CHI MATTHEW Facility:[facility] Start: 11-19-2023 End: 11-19-2023 Nursing evaluation of patient and report Nurse [facility] [place] [facility] Work Phone: [facility] Procedures Date Procedure Procedure Detail Performing Clinician Start: 09-30-2023 Ecg routine ecg w/le ast 12 lds w/i&r Riki Jaime MD Work Phone: Plan of Treatment Date Care Activity Detail Author Start: 11-07-2030 Urine microalbumin profile DTaP,Tdap,Td Vaccine (2 - Td or Tdap) [facility] Start: 11-12-2026 Diabetes Screening Diabetes Screenin g [facility] Start: 11-25-2023 Advance Directive Discussion Advance Directive Discussion [facility] Start: 11-25-2023 [facility] Start: 07-26-2023 Influenza vaccination Influenza Vacc ine (#1) [facility] Start: 11-25-2022 Advance Directive Discussion Advance Directive Discussion [facility] Start: 11-25-2022 Depression Assessment Depression Ass essment [facility] Start: 10-02-2022 Diabetes Screening Diabetes Screenin g [facility] Start: 2010 Pneumococcal Vaccine : 65+ (1 - PCV) Pneumococcal Vaccine: 65+ (1 - PCV) [facility] Start: 2005 RSV Vaccine (1 - 1-d ose 60+ series) RSV Vaccine (1 - 1-dose 60+ series) [facility] Start: 1995 Shingrix Vaccine (1 of 2) Shingrix V accine (1 of 2) [facility] Start: 1964 Urine microalbumin profile DTaP,Tdap,Td Vaccine (1 - Tdap) [facility] Start: 1963 Hepatitis C Screening Hepatitis C [facility] Start: 1963 Hepatitis C screening Hepatitis C [facility] Start: 02-15-1946 Covid-19 Vaccine (#1) Covid-19 Vacci ne (#1) [facility] [place] [facility] Payers Date Payer Category Payer Medicare [id number] 2021 Unknown MMO MMO MEDICARE SUPPLEMENT [id number] 2021-Present [phone] [address] [place] [address] Indemnity [id number] 2010 Medicare MEDICARE MEDICAR E A AND B [id number] 2010-Present [phone] [address] [address] [place] [address] Medicare [id number] 2010 Medicare [id number] Social History Date Type Detail Facility Start: 01-12-2016 End: 09-25-2023 Tobacco smoking status NHIS Ex-smoker [facility] End: 11-25-2019 History of tobacco use Current smoker [facility] End: 11-25-2019 History of tobacco use Cigarette Smoker [facility] Start: 01-12-2016 End: 09-30-2023 Cigarettes smoked current (pack per day) - Reported 0.5 [facility] Start: 01-12-2016 End: 09-25-2023 Tobacco use and exposure Smokeless tobacco non-user [facility] Start: 07-08-2022 End: 11-12-2023 Alcohol intake Current non-drinker of alcohol (finding) [facility] Start: 09-30-2019 End: 09-30-2023 Tobacco use panel [facility] PHQ-2 Score 0 [facility] Start: 1945 Sex Assigned At Not on file [facility] Start: 09-25-2023 Tobacco Comment less than a pack per day [facility] Nurse Note 11-19-2023 Danyell Cancino RN - [...] Danyell Cancino RN documented in this encounter [facility] Clinical Note 11-12-2023 Note Date & Type Note Facility 11-12-2023 Note HNO ID: [id number] Author: Charlee Gant RN Service: ? Author Type: Registered Nurse Type: Nursing Progress Note Filed: 11/12/2023 2:51 PM Note Text: 1450 patient D/C to home [facility] Clinical Note 11-12-2023 Note Date & Type Note Facility 11-12-2023 Note HNO ID: [id number] Author: Charlee Gant, CHANA Service: ? Author Type: Registered Nurse Type: Nursing Progress Note Filed: 11/12/2023 7:25 AM Note Text: 0723 Patient admitted to POD, pre procedure teaching at bedside, review of medications with patient [facility] Note 10-01-2023 Telephone Encounter - Danyell Cancino RN - 10/01/2023 4:00 PM ESTTelephone Encounter - Yoko Ramirez LPN - 10/01/2023 1:22 PM ESTTelephone Encounter - Jovana Albarado - 10/01/2023 12:08 PM EST Note Date & Type Note Facility 10-01-2023 Miscellaneous Notes Formattin g of this note might be different from the original. Pt's name has been added to [facility] procedure board. Danyell Cancino RN Patient returned call to [facility] to confirm date for an ICD Replacement [...] before the procedure. You will need a feeder driver when released from the hospital. You should continue to take medications as prescribed the morning of the procedure with just a sip of water but Hold Eliquis for 3 days prior to change out Left message for Benito Whittington to call back and confirm date & instructions Jovana Albarado documented in this encounter [facility] Progress note 09-30-2023 Note Date & Type Note Facility 09-30-2023 Note HNO ID: [id number] Author: Riki Jaime MD Service: ? Author Type: Physician Type: Progress Notes Filed: 09/30/2023 10:48 AM Note Text: [facility] [place] [facility] SECTION OF CARDIAC PACING and ELECTROPHYSIOLOGY OUTPATIENT VISIT DATE September 30, 2023 OUTPATIENT VISIT TYPE NEW PRIMARY CARE PHYSICIAN: Asaf Castro MD [address] [place] [address] REFERRING PHYSICIAN: Anupam Reece MD ([place], [place]). HISTORY OF PRESENT ILLNESS: 78-year-old male with history of essential hypertension, cardiomyopathy with severe LV systolic dysfunction, persistent atrial fibrillation/atypical atrial flutter, and oral anticoagulation, status post DOOR TO DOOR SELLING DISTRIBUTOR-D system implantation in 2019 with concurrent AV di ablation. 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 Benito reports feeling well, has his ups and downs, denies palpitation, dyspnea, chest discomfort, or ICD shocks. He is on oral anticoagulation with Eliquis with no obvious bleeding complications. He is on appropriate medical regimen. Apparently he is on amiodarone as well. Device interrogation from August 2023 showed stable lead parameters, ongoing mode switch for close to a year, battery at OIL AND GAS SUPERINTENDENT. ECG shows atrial flutter with ventricular pacing. Most recent echocardiogram showed EF of 30% Pharmacologic nuclear stress test showed apical scar with no reversibility and EF of 31%. PAST MEDICAL HISTORY Diagnosis Date Acid reflux Allergy, unspecified not elsewhere classified Aneurysm, thoracic aortic (HCC) Arrhythmia Arthritis neck Benign neoplasm of colon Cardiac resynchronization therapy defibrillator (DOOR TO DOOR SELLING DISTRIBUTOR-D) in place Chronic obstructive pulmonary disease (COPD) ([facility]) Congenital anomalies of pancreas Coronary artery disease Essential hypertension Hyperlipemia ICD (implantable cardioverter-defibrillator) in place Longstanding persistent atrial fibrillation (HCC) MVP (mitral valve prolapse) Other and unspecified hyperlipidemia Other premature beats Other specified forms of chronic ischemic heart disease PMH - PAST MEDICAL HISTORY OF dilated cardiolyopathy Snoring SVT (supraventricular tachycardia) Syncope VT (ventricular tachycardia) ([facility]) MEDICATIONS: amLODIPine (NORVASC) 5 mg tablet Take [...] oriented to pers (more content not included)... [facility] History of Present illness Narrative 09-30-2023 Riki Jaime MD - 09/30/2023 10:38 AM EST Note Date & Type Note Facility 09-30-2023 History of Presen t illness Narrative Images from the original note were not included. [facility] [place] [facility] SECTION OF CARDIAC PACING and ELECTROPHYSIOLOGY OUTPATIENT VISIT DATE September 30, 2023 OUTPATIENT VISIT TYPE NEW PRIMARY CARE PHYSICIAN: Asaf Castro MD [address] [facility] [place] [address] REFERRING PHYSICIAN: Anupam Reece MD ([place], [place]). HISTORY OF PRESENT ILLNESS: 78-year-old male with history of essential hypertension, cardiomyopathy with severe LV systolic dysfunction, persistent atrial fibrillation/atypical atrial flutter, and oral anticoagulation, status post DOOR TO DOOR SELLING DISTRIBUTOR-D system implantation in 2019 with concurrent AV di ablation. 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 Benito reports feeling well, has his ups and downs, denies palpitation, dyspnea, chest discomfort, or ICD shocks. He is on oral anticoagulation with Eliquis with no obvious bleeding complications. He is on appropriate medical regimen. Apparently he is on amiodarone as well. Device interrogation from August 2023 showed stable lead parameters, ongoing mode switch for close to a year, battery at OIL AND GAS SUPERINTENDENT. ECG shows atrial flutter with ventricular pacing. Most recent echocardiogram showed EF of 30% Pharmacologic nuclear stress test showed apical scar with no reversibility and EF of 31%. PAST MEDICAL HISTORY Diagnosis Date Acid reflux Allergy, unspecified not elsewhere classified Aneurysm, thoracic aortic (HCC) Arrhythmia Arthritis neck Benign neoplasm of colon Cardiac resynchronization therapy defibrillator (DOOR TO DOOR SELLING DISTRIBUTOR-D) in place Chronic obstructive pulmonary disease (COPD) (HCC) Congenital anomalies of pancreas Coronary artery disease Essential hypertension Hyperlipemia ICD (implantable cardioverter-defibrillator) in place Longstanding persistent atrial fibrillation (HCC) MVP (mitral valve prolapse) Other and unspecified hyperlipidemia Other premature beats Other specified forms of chronic ischemic heart disease PMH - PAST MEDICAL HISTORY OF dilated cardiolyopathy Snoring SVT (supraventricular tachycardia) Syncope VT (ventricular tachycardia) ([facility]) MEDICATIONS: amLODIPine (NORVASC) 5 mg tablet Take [...] male with cardiomyopathy, severe LV systolic function, DOOR TO DOOR SELLING DISTRIBUTOR-D system at OIL AND GAS SUPERINTENDENT, ongoing atrial fibrillation, on oral anticoagulation and amiodarone. ASSESSMENT/PLAN: 1. Cardiac resynchronization therapy defibrillator (DOOR TO DOOR SELLING DISTRIBUTOR-D) in place - ICD9: V45.02, ICD10: Z95.810 (primary diagnosis) Device reached OIL AND GAS SUPERINTENDENT a few weeks ago. We will arrange [...] is no clear plans for sinus rhythm zoroastrianism, would recommend to discontinue amiodarone. - ECG B/O W INTERP (MED OFFICE) 3. FPC (current) use of anticoagulants - ICD9: V58.61, ICD10: Z79.01 No obvious bleeding complications, will hold and take elation prior to device replacement. 4. CHB (complete heart block) (HCC) - ICD9: 426.0, ICD10: I44.2 Status post AV node ablation, addressed with dual-chamber system implantation. Riki Jaime MD CONTACT INFORMATION: Riki Jaime MD documented in this encounter [facility] Nurse Note 09-30-2023 Marian Cherry MA - 09/30/2023 10:07 AM EST Note Date & Type Note Facility 09-30-2023 Nurse Note No cardiac complaints today. Marian Cherry MA documented in this encounter [facility] Note 09-02-2023 Telephone Encounter - Quinten Cannon LPN - 09/02/2023 1:33 PM EDTTelephone Encounter - Nicolle Hawthorne - 09/02/2023 11:37 AM EDTTelephone Encounter - Quinten Godinez LPN - 08/29/2023 3:52 PM EDT Note Date & Type Note Facility 09-02-2023 Miscellaneous Notes Formattin g of this note might be different from the original. Spoke with Opal at [facility]. She reports it was previously faxed with the consult paperwork. However She will reprint and fax again. Quinten Cannon LPN May need to check with [facility] through [facility]. Not a [facility] patient. Nicolle Hawthorne MA No, but we need the most recent device interrogation report from [facility] please. Riki Jaime MD Pt called in inquiring if he should complete an labs or cardiac testing prior to his September apt. Quinten Cannon LPN documented in this encounter [facility] Evaluation note Note Date & Type Note Facility documented in this encounter [facility] Evaluation note Note Date & Type Note Facility documented in this encounter [facility] Summary Purpose Family History No Family History Records FoundNo Family History Records Found Advance Directives No Advanced Directives Records FoundNo Advanced Directives Records Found Additional Source Comments (unrecognized sect ion and content) No Status Records FoundNo Status Records Found INFORMATION SOURCE (unrecogn ized section and content) DATE CREATED AUTHOR AUTHOR'S ORGANIZ ATION 01/03/2024 [facility] Source Comments (unrecognize d section and content) In the event this informatio n is protected by the Federal Confidentiality of Alcohol and Drug Abuse Patient Records regulations: The Federal rules restrict any use of the information to criminally investigate or prosecute any alcohol or drug abuse patient.[facility] the event this information is protected by the Federal Confidentiality of Alcohol and Drug Abuse Patient Records regulations: The Federal rules restrict any use of the information to criminally investigate or prosecute any alcohol or drug abuse patient.[facility] the event this information is protected by the Federal Confidentiality of Alcohol and Drug Abuse Patient Records regulations: The Federal rules restrict any use of the information to criminally investigate or prosecute any alcohol or drug abuse patient.[facility] the event this information is protected by the Federal Confidentiality of Alcohol and Drug Abuse Patient Records regulations: The Federal rules restrict any use of the information to criminally investigate or prosecute any alcohol or drug abuse patient.[facility] Reason for Visit (unrecogniz ed section and content) Reason Comments New Patient Re-establish care di charli gen change Reason Comments Preparations For Procedures Reason Comments Wound Check Care Teams (unrecognized sec tion and content) Casting House Worker Relationship Specialty Start Date End Date Matthew, Asaf Jung [address] [place], [place] [address] PCP - General Gerontology 09/30/23 Irwin Walton MD Referring Gastroenterology 06/11/17 Casting House Worker Relationship Specialty Start Date End Date Matthew, Asaf Jung [address] [place], [place] [address] PCP - General Gerontology 09/30/23 Irwin Walton MD Referring Gastroenterology 06/11/17 Casting House Worker Relationship Specialty Start Date End Date MatthewAsaf Chi [address] [place], [place] [address] PCP - General Gerontology 09/30/23 Irwin Walotn MD Referring Gastroenterology 06/11/17 FOR RECORDS PERTAINING [...] BE BASED ON THE PRIMARY CLINICAL RECORDS. [facility]. provides no warranty or guarantee of the accuracy or completeness of information in this document.
--- NOTE | 2024-02-07 20:05 | EX.ED.DYSGE1 ---
HPI History of Present Illness Chief Complaint: Dizziness Narrative Narrative: Supple 78-year-old male presenting with lightheadedness. He states this is a chronic issue but has been worse over the last couple of weeks. Patient has history of A-fib, SVT,, cardiomyopathy and he is presenting with lightheadedness. He states he had his pacemaker interrogated yesterday as he was having lightheadedness. Patient states that after he had his pacemaker checked open he was told if he has any other symptoms to come to the emergency room. He states initially they thought they might send him to the emergency room from the pacemaker check and even question whether they would send him in to [place] to [facility] where his cardiovascular disease specialist is. Patient states that he still continues to feel lightheaded although he has no episode of syncope. Denies chest pain. Is not short of breath. No fevers or chills. He has not missed any medications. He states his last echocardiogram was probably within the last year but he is unsure. Patient states he was able to drive home yesterday over an hour and he also was able to drive to the ER today. [facility] Medical History Ambulates with cane Anemia Arthritis Cardiology follow-up encounter Cardiomyopathy Chest pain Colitis Depression Essential hypertension Gastric reflux GERD (gastroesophageal reflux disease) Hyperlipidemia Hypertension Hypokalemia ICD (implantable cardioverter-defibrillator) in place Long-term use of high-risk medication Loose, teeth MVP (mitral valve prolapse) Near syncope Nonrheumatic mitral (valve) prolapse Pacemaker Pre-op evaluation Premature ventricular contraction Shortness of breath on exertion SVT (supraventricular tachycardia) Syncope Thoracic aortic aneurysm Thoracic aortic aneurysm without rupture Ventricular tachycardia Wears glasses Home Medications albuterol sulfate 90 mcg/actuation aerosol inhaler (Ventolin HFA) 2 puff inhalation Q4H PRN PRN SOB &/OR WHEEZING #0 grams 02/19/22 [Rx Last Taken Unknown] apixaban 5 mg tablet (Eliquis) 5 mg PO BID #180 tabs 02/27/23 [Rx Last Taken Unknown] simvastatin 20 mg tablet 20 mg PO QHS cholesterol #90 tabs 03/20/23 [Rx Last Taken Unknown] sacubitril 24 mg-valsartan 26 mg tablet (Entresto) 1 tab PO BID #60 tabs 05/09/23 [Rx Last Taken Unknown] vit C 250 mg-vit E 200 unit-zinc ox 12.5 nm-ctykvq-frqzpz-zeax capsule (ICaps AREDS2) 1 cap PO BID 07/30/23 [History Last Taken Unknown] metoprolol succinate 25 mg tablet,extended release 24 hr 12.5 mg (1/2 x 25 mg) PO DAILY #45 tabs 10/15/23 [Rx Last Taken Unknown] venlafaxine 37.5 mg tablet 37.5 mg PO DAILY 12/13/23 [History Last Taken Unknown] empagliflozin 25 mg tablet (Jardiance) 12.5 mg PO DAILY 12/20/23 [History Last Taken Unknown] amiodarone 200 mg tablet 200 mg PO DAILY Pt awaiting mail in RX, he is OUT of medication #30 tabs 12/30/23 [Rx Last Taken Unknown] Allergy/AdvReac Type Severity Reaction Status Date / Time No Known Allergies Allergy Verified 02/07/24 16:35 Family History Father Heart disease Sister Heart disease Brother Heart disease Surgical History History of bilateral cataract extraction History of partial nephrectomy (07/02/18) History of tonsillectomy History of total left knee replacement Hx of atrioventricular node ablation Presence of cardiac defibrillator Social History household members: none Smoking Status: Former smoker how long ago did patient quit smokin years ago alcohol intake: never substance use type: does not use caffeine: Yes Type: coffee Number of servings: 2 ROS ROS ED Constitutional Constitutional ED: Denies chills, fever(s) or sweats Eyes Eyes: Denies blurry vision or change in vision ENT ENT ED: Denies ear pain or sore throat Cardiovascular Cardiovascular: Reports other Details: Lightheadedness and near syncope ; Denies chest pain, palpitations or racing heartbeat Respiratory/Chest Respiratory/Chest: Denies cough, dyspnea or sputum Gastrointestinal Gastrointestinal: Denies abdominal pain, constipation, diarrhea, nausea or vomiting Genitourinary Genitourinary ED: Denies dysuria, hematuria or urinary frequency Musculoskeletal Musculoskeletal: Denies arthralgias, myalgias or neck pain Integumentary Denies abscess, Abrasions or rash Neurologic Neurologic: Denies headache(s), paresthesias or weakness Psychiatric Psychiatric: Denies anxiety, depression, suicidal ideation or suicidal thoughts Endocrine Endocrinology: Denies polydipsia or polyuria EXAM Physical Exam Const Vital Signs: 02/07/24 16:34 02/07/24 18:16 02/07/24 18:16 Temperature 98.4 F Temperature Source Temporal Pulse Rate 70 71 Pulse Rate [Lying] Pulse Rate [Sitting (for 1 minute prior to obtaining)] Pulse Rate [Standing (for 1 minute prior to obtaining)] Respiratory Rate 15 20 H Respiratory Effort Respiratory Pattern Blood Pressure 114/74 133/67 H Blood Pressure [Lying] Blood Pressure [Sitting (for 1 minute prior to obtaining)] Blood Pressure [Standing (for 1 minute prior to obtaining)] Blood Pressure Mean 87 89 Blood Pressure Mean [Lying] Blood Pressure Mean [Sitting (for 1 minute prior to obtaining)] Blood Pressure Mean [Standing (for 1 minute prior to obtaining)] Pulse Ox 100 98 96 Oxygen Delivery Method Room Air Room Air Room Air 02/07/24 18:16 02/07/24 18:33 02/07/24 19:28 Temperature Temperature Source Pulse Rate 71 Pulse Rate [Lying] 70 Pulse Rate [Sitting (for 1 minute prior to obtaining)] 72 Pulse Rate [Standing (for 1 minute prior to obtaining)] 81 Respiratory Rate 13 Respiratory Effort Normal Non-Labored Respiratory Pattern Normal Blood Pressure 121/71 H Blood Pressure [Lying] 117/61 Blood Pressure [Sitting (for 1 minute prior to obtaining)] 131/73 H Blood Pressure [Standing (for 1 minute prior to obtaining)] 118/70 Blood Pressure Mean 87 Blood Pressure Mean [Lying] 79 Blood Pressure Mean [Sitting (for 1 minute prior to obtaining)] 92 Blood Pressure Mean [Standing (for 1 minute prior to obtaining)] 86 Pulse Ox 98 Oxygen Delivery Method Room Air 02/07/24 20:00 02/07/24 22:00 Temperature Temperature Source Pulse Rate 80 72 Pulse Rate [Lying] Pulse Rate [Sitting (for 1 minute prior to obtaining)] Pulse Rate [Standing (for 1 minute prior to obtaining)] Respiratory Rate 16 17 Respiratory Effort Respiratory Pattern Blood Pressure 153/91 H 107/72 Blood Pressure [Lying] Blood Pressure [Sitting (for 1 minute prior to obtaining)] Blood Pressure [Standing (for 1 minute prior to obtaining)] Blood Pressure Mean 111 83 Blood Pressure Mean [Lying] Blood Pressure Mean [Sitting (for 1 minute prior to obtaining)] Blood Pressure Mean [Standing (for 1 minute prior to obtaining)] Pulse Ox 99 99 Oxygen Delivery Method Room Air Room Air Positive well nourished General Appearance ED: NAD; Negative for pallor HEENT Reports moist mucous membranes trauma Eyes PERRL and EOMs intact bilaterally Chest Wall inspection of chest normal Resp normal respiratory effort and clear to auscultation bilaterally Auscultation: Negative for rales, rhonchi or wheezes Cardio regular rate and regular rhythm GI normal to inspection, nondistended, normoactive bowel sounds Neuro oriented x3 and CN's II-XII intact bilaterally Sensorium / Orientation: alert Psych Attitude: agitated Skin no rashes or lesions noted and no wounds General Skin Exam: Negative for jaundice or pallor MDM MDM MDM Narrative Medical decision making narrative: Patient patient presenting with lightheadedness. This is a longstanding issue however the patient states is worse over the last couple weeks. I did review the patient's interrogation which shows that he had some RV noise with inhibition of pacing and ventricle and RV and LV lead. The threshold was changed and so was the amplitude and after doing isometrics in our maneuvers there was no reproduction of the noise except except there was no noted inhibition of the pacing noted after adjustments were made. Nothing was inhibited with deep inspiration as it was previously noted. Patient states he was told that if he has any more lightheadedness come to the ER. Denies chest pain. Differential includes ACS, CHF, dysrhythmia, A-fib, a flutter, dehydration, anemia, electrolyte abnormalities. CBC was obtained to assess white blood cell count, hemoglobin, platelets. BMP to assess renal function and electrolytes. Blood work all within normal limits. Troponin is normal. Renal function at baseline. Discussed with cardiology Fletcher Elizalde who did not feel the patient needed to come there as his EKG is paced and his rhythm here has been paced. We reviewed the read/interrogation of his pacemaker which shows there were no abnormalities currently noted. Cardiology recommended that I have his pacemaker reinterpreted and then call [facility] to make sure there is no issues with that and if this is normal he can be discharged home. Patient will be signed out to incoming ED physician for monitoring until staging calls back. Discussed discussed at length with him. I recommend that if he still feeling lightheaded he should not be driving. He acknowledged understanding patient. Impression: 1. Lightheadedness 2. History of pacemaker Lab Data Labs: Laboratory Results - last 24 hr 02/07/24 17:40 WBC 5.6 RBC 4.74 Hgb 14.5 Hct 45.3 MCV 95.6 H MCH 30.6 MCHC 32.0 RDW Std Deviation 46.7 H RDW Coeff of Mary 13.2 Plt Count 102 L MPV 10.1 Immature Gran % (Auto) 0.000 Neut % (Auto) 71.9 H Lymph % (Auto) 18.5 L Calloway % (Auto) 7.3 Eos % (Auto) 0.9 Baso % (Auto) 1.4 H Absolute Neuts (auto) 4.0 Absolute Lymphs (auto) 1.04 Nucleated RBC % 0 PT 17.2 H INR 1.4 APTT 43.0 H Sodium 139 Potassium 4.3 Chloride 108 H Carbon Dioxide 26.0 Anion Gap 5 BUN 19 H Creatinine 1.44 H Estim Creat Clear Calc 41.14 Est GFR (MDRD) Af Amer 61 Est GFR (MDRD) Non-Af 50 L BUN/Creatinine Ratio 13.2 Glucose 91 Calcium 9.2 Troponin I High Sens 6 Radiography Diagnostic Testing: Clinical Impression(s) from Imaging Studies Chest X-Ray 02/07/24 17:05 IMPRESSION: Pulmonary hyperinflation with no acute pulmonary abnormality. Electronically Signed: Evans Gregg MD at 17:41 EDT , Discharge Plan Triage Chief Complaint: Dizziness ED Provider: Liam Carrillo Dx/Rx/DC Orders Prescriptions: No Action ICaps AREDS2 250 mg-200 unit -12.5 mg-1 mg capsule 1 cap PO BID venlafaxine 37.5 mg tablet 37.5 mg PO DAILY Hold Instructions: Pt has been DC'd albuterol sulfate [Ventolin HFA] 90 mcg/actuation Hfa Aerosol Inhaler 2 puff inhalation Q4H PRN PRN (Reason: SOB &/OR WHEEZING) Qty: 0 0RF Eliquis 5 mg tablet 5 mg PO BID Qty: 180 4RF simvastatin 20 mg tablet 20 mg PO QHS Qty: 90 3RF Entresto 24-26 mg tablet 1 tab PO BID Qty: 60 0RF metoprolol succinate 25 mg tablet extended release 24 hr 12.5 mg PO DAILY Qty: 45 3RF Jardiance 25 mg tablet 12.5 mg PO DAILY amiodarone 200 mg tablet 200 mg PO DAILY Qty: 30 0RF Rx Instructions: heart rate Primary Care Provider: Helen Lainez Referrals: Helen Lainez MD [Primary Care Provider] -
[2024-02-07 22:17] LABS: Troponin-I HS 6 pg/mL (3.0-78.0)
== END 2024-02-07 23:45 | disposition home or self-care (01) ==
PROVIDERS: Emergency Provider Student in an Organized Health Care Education/Training Program; PCP Family Medicine; Visit Provider Student in an Organized Health Care Education/Training Program
DX: R42 Dizziness and giddiness (principal); I42.9 Cardiomyopathy, unspecified; I48.91 Unspecified atrial fibrillation; Z45.018 Encounter for adjustment and management of other part of cardiac pacemaker; Z87.891 Personal history of nicotine dependence; E78.5 Hyperlipidemia, unspecified; I10 Essential (primary) hypertension; K21.9 Gastro-esophageal reflux disease without esophagitis; Z95.810 Presence of automatic (implantable) cardiac defibrillator; Z86.73 Personal history of transient ischemic attack (TIA), and cerebral infarction without residual deficits
CPT/HCPCS: 71045; 80048; 84484; 85025; 85610; 85730; 93005; 99285; A4216

== ENCOUNTER → 2024-02-26 | Outpatient (CLI) | payer MEDICARE, OTHER, SELFPAY ==
--- NOTE | 2024-02-26 07:46 | CDU_ITS ---
Reason For Study: Syncope Rt. Velocities/BP Lt. Velocities/BP Prox CCA 71.4/15.7 cm/sec. Prox CCA 97.9/21.2 cm/sec. Mid CCA 66.7/13.8 cm/sec. Mid CCA 79.8/16.0 cm/sec. Dist CCA 45.0/11.9 cm/sec. Dist CCA 81.7/16.2 cm/sec. Prox ICA 52.5/16.6 cm/sec. Prox ICA 41.0/15.4 cm/sec. Mid ICA 73.3/23.2 cm/sec. Mid ICA 52.5/20.4 cm/sec. Dist ICA 106.3/42.5 cm/sec. Dist ICA 72.4/28.9 cm/sec. Rt. ICA/CCA = 1.6. Lt. ICA/CCA = 0.9. Prox ECA 76.1/9.1 cm/sec. Prox ECA 75.2/12.8 cm/sec. Rt. Vert. 40.7/13.6 cm/sec. Lt. Vert. 50.1/12.7 cm/sec. Right Extracranial There is homogeneous, smooth atherosclerotic plaque noted in the right common carotid artery. There is intimal thickening but no significant atherosclerotic plaque noted in the right internal carotid artery. There is intimal thickening but no significant atherosclerotic plaque noted in the right external carotid artery. Antegrade flow is noted in the right vertebral artery. There is heterogeneous, irregular atherosclerotic plaque noted in the right bulb. Left Extracranial There is homogeneous, smooth atherosclerotic plaque noted in the left common carotid artery. There is intimal thickening but no significant atherosclerotic plaque noted in the left internal carotid artery. There is intimal thickening but no significant atherosclerotic plaque noted in the left external carotid artery. Antegrade flow is noted in the left vertebral artery. There is heterogeneous, irregular atherosclerotic plaque noted in the left bulb. Procedure Carotid Duplex 39372. This is a Carotid Duplex examination using B-mode, color flow and specral Doppler. The exam was diagnostic. Exam performed in department. VL/Carotid Duplex Ultrasound Interpretation Summary Normal right extracranial internal carotid. Normal left extracranial internal carotid. Patent and antegrade vertebrals bilaterally. Ordering Physician: Rashmi Fatima Referring Physician: Helen Lainez Performed By: Isaak Tesfaye RVT
--- NOTE | 2024-02-26 07:46 | ECHOL_ITS ---
Reason For Study: CARDIOMYOPATHY Procedure This was a limited 2D transthoracic echocardiogram. Myocardial strain analysis was performed in this exam to aid in the assessment of cardiac function. Exam performed in department. Left Ventricle Normal LV size. The left ventricular ejection fraction is 35 %. Stage 1 diastolic dysfunction. There is moderate global hypokinesis of the left ventricle. Right Ventricle Normal RV size. ICD or pacer leads identified within the right ventricle. Normal systolic function. Atria Normal left atrium. ICD or pacer leads identified within the right atrium. Mitral Valve Normal mitral valve. Tricuspid Valve Normal tricuspid valve. Mild tricuspid valve insufficiency. Pulmonary artery systolic pressure is 20 mmHg. Aortic Valve Trisinus/trileaflet aortic valve. Pulmonic Valve Normal pulmonic valve. Great Vessels Mild to moderately dilated aortic root. The pulmonary artery is normal size. Inferior vena cava collapse with respiration. Pericardium/Pleural No pericardial effusion. MMode/2D Measurements & Calculations LVIDd: 5.3 cm IVSd: 0.59 cm Ao root diam: 4.4 cm LVIDs: 4.2 cm LVPWd: 0.78 cm RVDd: 4.2 cm FS: 20.4 % LAV(MOD-bp): 31.3 ml LVAd ap4: 32.7 cm2 LVAd ap2: 31.2 cm2 LAV(MOD-bp) Indexed: 16.1 ml/m2 LVLd ap4: 7.9 cm LVLd ap2: 7.4 cm LAV(MOD-sp2): 38.3 ml EDV(MOD-sp4): 111.3 ml EDV(MOD-sp2): 105.3 ml LAV(MOD-sp4): 24.1 ml EDV(sp4-el): 114.9 ml EDV(sp2-el): 110.7 ml LVAs ap4: 25.2 cm2 LVAs ap2: 24.9 cm2 LVLs ap4: 7.4 cm LVLs ap2: 7.2 cm ESV(MOD-sp4): 70.1 ml ESV(MOD-sp2): 70.1 ml ESV(sp4-el): 72.5 ml ESV(sp2-el): 73.3 ml EF(MOD-sp4): 37.1 % EF(MOD-sp2): 33.4 % EF(sp4-el): 36.9 % SV(MOD-sp4): 41.3 ml SV(MOD-sp2): 35.2 ml SV(sp4-el): 42.4 ml LA dimension(2D): 2.5 cm LA A4 area: 12.9 cm2 RA A4 area: 22.1 cm2 TAPSE: 1.2 cm Time Measurements MV dec time: 0.19 sec Doppler Measurements & Calculations MV E max jay: 42.1 cm/sec Lat Peak E' Jay: 9.5 cm/sec Med Peak E' Jay: 5.9 cm/sec MV A max jay: 64.1 cm/sec E/E' lat: 4.4 E/E' med: 7.1 MV E/A: 0.66 MV dec slope: 217.6 cm/sec2 Ao V2 max: 81.8 cm/sec LV V1 max: 79.9 cm/sec Ao max P.7 mmHg LV V1 max P.6 mmHg Ao V2 mean: 59.6 cm/sec LV V1 mean P.4 mmHg Ao mean P.6 mmHg LV V1 mean: 54.3 cm/sec Ao V2 VTI: 17.9 cm LV V1 VTI: 15.5 cm AV (velocity ratio): 0.87 PA V2 max: 74.8 cm/sec TR max jay: 205.1 cm/sec TR max P.8 mmHg ECHO/Echo, Limited Study Interpretation Summary The left ventricular ejection fraction is 35 %. Normal LV size. There is moderate global hypokinesis of the left ventricle. ICD or pacer leads identified within the right ventricle. Stage 1 diastolic dysfunction. The global longitudinal strain is moderately abnormal. The global longitudinal strain = -13.4% (abnormal). Ordering Physician: Rashmi Fatima Referring Physician: Rashmi Fatima Performed By: Madina Knox RDCS
== END | disposition home or self-care (01) ==
LOC: CVS 07:46
PROVIDERS: PCP Family Medicine; Referring Provider Nurse Practitioner Gerontology; Visit Provider Nurse Practitioner Gerontology
DX: I49.3 Ventricular premature depolarization (principal); I42.9 Cardiomyopathy, unspecified; R42 Dizziness and giddiness; R55 Syncope and collapse
CPT/HCPCS: 93308; 93880

== ENCOUNTER 2024-02-28 18:06 | Emergency (ER) | payer MEDICARE, OTHER, SELFPAY ==
[2024-02-28 18:06] VITALS: BP 127/77; PULSE 73; RESP 14; TEMP 36.8; O2SAT 99; BMI 19.2
--- NOTE | 2024-02-28 18:13 | EX.ED.DYSGE1 ---
HPI History of Present Illness Chief Complaint: Lower Extremity Injury [facility] Medical History Ambulates with cane Anemia Arthritis Cardiology follow-up encounter Cardiomyopathy Chest pain Colitis Depression Essential hypertension Gastric reflux GERD (gastroesophageal reflux disease) Hyperlipidemia Hypertension Hypokalemia ICD (implantable cardioverter-defibrillator) in place Long-term use of high-risk medication Loose, teeth MVP (mitral valve prolapse) Near syncope Nonrheumatic mitral (valve) prolapse Pacemaker Pre-op evaluation Premature ventricular contraction Shortness of breath on exertion SVT (supraventricular tachycardia) Syncope Thoracic aortic aneurysm Thoracic aortic aneurysm without rupture Ventricular tachycardia Wears glasses Home Medications albuterol sulfate 90 mcg/actuation aerosol inhaler (Ventolin HFA) 2 puff inhalation Q4H PRN PRN SOB &/OR WHEEZING #0 grams 02/19/22 [Rx Last Taken Unknown] apixaban 5 mg tablet (Eliquis) 5 mg PO BID #180 tabs 02/27/23 [Rx Last Taken Unknown] simvastatin 20 mg tablet 20 mg PO QHS cholesterol #90 tabs 03/20/23 [Rx Last Taken Unknown] sacubitril 24 mg-valsartan 26 mg tablet (Entresto) 1 tab PO BID #60 tabs 05/09/23 [Rx Last Taken Unknown] vit C 250 mg-vit E 200 unit-zinc ox 12.5 xz-gsjyjm-qmrvos-zeax capsule (ICaps AREDS2) 1 cap PO BID 07/30/23 [History Last Taken Unknown] metoprolol succinate 25 mg tablet,extended release 24 hr 12.5 mg (1/2 x 25 mg) PO DAILY #45 tabs 10/15/23 [Rx Last Taken Unknown] venlafaxine 37.5 mg tablet 37.5 mg PO DAILY 12/13/23 [History Last Taken Unknown] empagliflozin 25 mg tablet (Jardiance) 12.5 mg PO DAILY 12/20/23 [History Last Taken Unknown] amiodarone 200 mg tablet 200 mg PO DAILY Pt awaiting mail in RX, he is OUT of medication #30 tabs 12/30/23 [Rx Last Taken Unknown] Allergy/AdvReac Type Severity Reaction Status Date / Time No Known Allergies Allergy Verified 02/07/24 16:35 Family History Father Heart disease Sister Heart disease Brother Heart disease Surgical History History of bilateral cataract extraction History of partial nephrectomy (07/02/18) History of tonsillectomy History of total left knee replacement Hx of atrioventricular node ablation Presence of cardiac defibrillator Social History household members: none Smoking Status: Former smoker how long ago did patient quit smokin years ago alcohol intake: never substance use type: does not use caffeine: Yes Type: coffee Number of servings: 2 EXAM Physical Exam Const Vital Signs: 02/28/24 18:06 02/28/24 19:06 Temperature 98.3 F 98.1 F Temperature Source Temporal Pulse Rate 73 69 Respiratory Rate 14 16 Blood Pressure 127/77 H 116/68 Blood Pressure Mean 93 84 Pulse Ox 99 99 Oxygen Delivery Method Room Air MDM MDM MDM Narrative Medical decision making narrative: HISTORY OF PRESENT ILLNESS: 78-year-old male presents with left knee pain. States he had his knee replaced 1 year ago. States approximate hour ago the knee came apart. Notes mild discomfort. Patient denies active cancer, being bedridden for greater than 3 days, denies unilateral leg swelling, denies any varicose veins, denies any calf tenderness, denies tenderness along deep venous system. Denies major surgery within 12 weeks, recent paralysis, previous DVT. REVIEW OF SYSTEMS: Pertinent positives: Knee pain Pertinent negatives: Numbness, tingling, loss sensation PHYSICAL EXAM: Nursing triage notes reviewed, Vital signs reviewed Constitutional: please see mdm Extremities: No edema, full range of motion in knee flexion extension Neuro: Intact sensation L1-S1 dermatomal distributions. Intact 5/5 strength in hip flexion (T12-L3). Knee extension (L2-L4). Ankle dorsiflexion (L4-L5). Ankle plantar flexion (S1). Great toe extension (L5). 2+ patellar and Achilles DTRs. Skin: No rash or lesions noted, no crepitus bullae fluctuance induration signs of cellulitis or abscess MEDICAL DECISION MAKING: Chief Complaint: Knee pain External records reviewed: Imaging reviewed: Left knee x-ray from 2021 shows left knee osteoarthritis Factors affecting care: History of knee replacement MDM Narrative: Patient was hemodynamically stable, afebrile and nontoxic-appearing. Left lower extremity neurovascularly intact. Compartments are soft. Intact quad tendon complex. No obvious deformity to suggest dislocation noted. No signs of effusion, redness, warmth to suggest septic arthritis. I considered the following differential diagnosis: Fracture, dislocation, hardware failure, septic arthritis I obtained an x-ray of the left knee ALL IMAGES (IF OBTAINED) HAVE BEEN PERSONALLY REVIEWED AND INTERPRETED BY MYSELF. X-ray of the left knee was read reviewed myself shows evidence of obvious bony abnormality. The patient and/or family, caregivers express understanding. The patient and/or family, caregivers agrees with the plan. Shared decision making: I will have a discussion with the patient and or visitors regarding risk/benefits of further testing or admission. They will be made aware of of the risk/benefits inherent in this decision they will be given the opportunity to voice understanding. Total critical care time today provided was at least 0 minutes. This excludes separately billable procedures. Critical care time (if documented) is secondary to the patient having high probability of clinically significant/life threatening deterioration in the patient's condition which required my urgent intervention. Impression: 1. Left knee pain Dispo: Discharge home This note was generated with [employer] dictation software. It may contain incorrect words, spelling, and punctuation that were not noted in review of the chart prior to signing. Radiography Diagnostic Testing: Clinical Impression(s) from Imaging Studies Knee X-Ray 02/28/24 18:18 IMPRESSION: No acute findings in the left knee. Electronically Signed: Gutierrez Causey MD at 18:35 EDT Reading Location ID and State: [facility] / [place] , Service support , Discharge Plan Triage Chief Complaint: Lower Extremity Injury ED Provider: Jayy Zhao Dx/Rx/DC Orders Clinical Impression: Acute knee pain, History of arthroplasty of knee Instructions: ED Knee Pain of Uncertain Cause, ED RICE Prescriptions: No Action ICaps AREDS2 250 mg-200 unit -12.5 mg-1 mg capsule 1 cap PO BID venlafaxine 37.5 mg tablet 37.5 mg PO DAILY Hold Instructions: Pt has been DC'd albuterol sulfate [Ventolin HFA] 90 mcg/actuation Hfa Aerosol Inhaler 2 puff inhalation Q4H PRN PRN (Reason: SOB &/OR WHEEZING) Qty: 0 0RF Eliquis 5 mg tablet 5 mg PO BID Qty: 180 4RF simvastatin 20 mg tablet 20 mg PO QHS Qty: 90 3RF Entresto 24-26 mg tablet 1 tab PO BID Qty: 60 0RF metoprolol succinate 25 mg tablet extended release 24 hr 12.5 mg PO DAILY Qty: 45 3RF Jardiance 25 mg tablet 12.5 mg PO DAILY amiodarone 200 mg tablet 200 mg PO DAILY Qty: 30 0RF Rx Instructions: heart rate Primary Care Provider: Helen Lainez Referrals: Helen Lainez MD [Primary Care Provider] - Activity Restrictions/Additional Instructions: Thank you for trusting us with your care today! Please take Tylenol (2 pills, 650 mg), ibuprofen (2 pills, 400 mg) every 6 hours as needed for pain and fever control. Please return to the emergency department if your symptoms change or worsen. Please follow with your primary care physician and/or your orthopedic surgeon for further outpatient evaluation and management. Disposition Disposition: Home, Self Care
--- NOTE | 2024-02-28 18:18 | RAD_ITS ---
EXAM: XR LEFT KNEE, 3 VIEWS CLINICAL INDICATION: knee pain TECHNIQUE: Three views of the left knee. COMPARISON: No relevant prior studies available. FINDINGS: BONES/JOINTS: Total knee arthroplasty. Hardware appears intact. No acute fracture. No subluxation. Normal alignment. No sclerotic or destructive changes observed. SOFT TISSUES: Unremarkable. No soft tissue swelling or gas. No radiopaque foreign body. RAD/Knee 3 Views IMPRESSION: No acute findings in the left knee. Electronically Signed: Gutierrez Causey MD at 18:35 EDT ,
[2024-02-28 19:06] VITALS: BP 116/68; PULSE 69; RESP 16; TEMP 36.7; O2SAT 99
== END 2024-02-28 19:25 | disposition home or self-care (01) ==
PROVIDERS: Emergency Provider Emergency Medicine; PCP Family Medicine; Visit Provider Emergency Medicine
DX: M25.562 Pain in left knee (principal); Z87.891 Personal history of nicotine dependence; I10 Essential (primary) hypertension; E78.5 Hyperlipidemia, unspecified; Z95.810 Presence of automatic (implantable) cardiac defibrillator; Z79.01 Long term (current) use of anticoagulants; Z79.899 Other long term (current) drug therapy; I47.10 Supraventricular tachycardia, unspecified; F32.A Depression, unspecified; Z98.41 Cataract extraction status, right eye; Z98.42 Cataract extraction status, left eye; Z96.652 Presence of left artificial knee joint; Z90.5 Acquired absence of kidney
CPT/HCPCS: 73562; 99282

== ENCOUNTER → 2024-04-02 | Outpatient (CLI) | payer MEDICARE, OTHER, SELFPAY ==
--- NOTE | 2024-04-02 09:40 | RAD_ITS ---
STUDY: X-RAY CHEST REASON FOR EXAM: Male, 78 years old. Nodule on prior chest x-ray. TECHNIQUE: Frontal and lateral views of the chest on 3 images. COMPARISON: Chest x-ray dated February 07, 2024 and CTA of the chest dated August 09, 2023 FINDINGS: Stable hyperinflation with flattening of the hemidiaphragms. There is no demonstrated pleural abnormality. Cardiomegaly with dual lead cardiac pacer. Normal mediastinum and araceli. Prominent central pulmonary arteries. Aortic tortuosity with calcification. Thoracic osteopenia with diffuse mild to moderate spondylosis and slight increased kyphosis. Normal visualized ribs, clavicles, and shoulders. No abnormality of the visualized soft tissue structures of the upper abdomen. RAD/Chest PA and Lateral IMPRESSION: Stable chest with no acute or active cardiopulmonary disease. No pulmonary nodule identified. Electronically Signed: James Suggs MD at 15:29 EDT ,
== END | disposition home or self-care (01) ==
LOC: RAD 09:37
PROVIDERS: PCP Family Medicine; Referring Provider Family Medicine; Visit Provider Family Medicine
DX: R91.1 Solitary pulmonary nodule (principal)
CPT/HCPCS: 71046

== ENCOUNTER → 2024-04-06 | Outpatient (CLI) | payer MEDICARE, OTHER, SELFPAY ==
[2024-04-06 13:54] LABS: Absolute Lymphocyte Count 0.97 X10^3/uL (0.83-4.51); Absolute Neutrophil Count 3.6 X10^3/uL (2.0-7.7); Basophil# 0.08 X10^3/uL; Basophil% 1.5 % (0-1); Eosinophil# 0.11 X10^3/uL; Eosinophils% 2.1 % (0-5); Hematocrit 39.5 % (40-54); Hemoglobin 12.4 g/dL (13.0-16.5); Lymphocyte # 0.97 X10^3/ul (0.83-4.51); Lymphocyte % 18.1 % (19-41); Mean Corp Hgb Conc 31.4 g/dL (32-36); Mean Corpuscular Hgb 29.4 pg (27.0-32.0); Mean Corpuscular Volume 93.6 fL (80-94); Mean Platelet Vol. 9.8 fl (6.2-12.0); Monocyte# 0.54 X10^3/uL; Monocyte% 10.1 % (0-10); NRBC Flagged by Analyzer 0 % (0-5); Neutrophil # 3.63 X10^3/uL (2.7-7.7); Neutrophil % 67.8 % (47-70); Platelet Count 103 K/mm3 (150-450); RBC Distribution Width SD 44.9 fl (35.1-43.9); Red Blood Count 4.22 M/mm3 (4.6-6.2); White Blood Count 5.4 K/mm3 (4.4-11.0)
[2024-04-06 14:30] LABS: Anion Gap 3 (5-15); BUN 16 mg/dL (7-18); BUN/Creat Ratio 11.5 RATIO (10-20); Calcium,Total 8.6 mg/dL (8.5-10.1); Chloride 107 mmol/L (98-107); Creatinine, Serum 1.39 mg/dL (0.70-1.30); EST Glomerular Filtration Rate 52 mL/min (>60); Est Glom Filt Rate - Afr Amer 64 mL/min (>60); Glucose 83 mg/dL (74-106); Potassium 4.2 mmol/L (3.5-5.1); Sodium Level 137 mmol/L (136-145)
[2024-04-06 15:17] LABS: BNP,B-Type NATRIURETIC PEPTIDE 169.3 pg/mL (0-100)
== END | disposition home or self-care (01) ==
LOC: LAB 13:30
PROVIDERS: PCP Family Medicine; Referring Provider Nurse Practitioner Gerontology; Visit Provider Nurse Practitioner Gerontology
DX: I42.9 Cardiomyopathy, unspecified (principal); R06.00 Dyspnea, unspecified
CPT/HCPCS: 36415; 80048; 83880; 85025

== ENCOUNTER → 2024-04-09 | Outpatient (CLI) | payer MEDICARE, OTHER, SELFPAY | END | disposition home or self-care (01) | LOC: PSN 09:19 | PROVIDERS: PCP Family Medicine; Referring Provider Nurse Practitioner Gerontology; Visit Provider Nurse Practitioner Gerontology | DX: R06.00 Dyspnea, unspecified (principal); Z79.899 Other long term (current) drug therapy | CPT/HCPCS: 94060; 94726; 94729 ==

== ENCOUNTER → 2024-04-13 | Outpatient (CLI) | payer MEDICARE, OTHER, SELFPAY ==
[2024-04-13 11:29] LABS: Anion Gap 4 (5-15); BUN 34 mg/dL (7-18); BUN/Creat Ratio 16.7 RATIO (10-20); Calcium,Total 8.9 mg/dL (8.5-10.1); Chloride 108 mmol/L (98-107); Creatinine, Serum 2.04 mg/dL (0.70-1.30); EST Glomerular Filtration Rate 34 mL/min (>60); Est Glom Filt Rate - Afr Amer 41 mL/min (>60); Glucose 114 mg/dL (74-106); Potassium 3.9 mmol/L (3.5-5.1); Sodium Level 138 mmol/L (136-145)
== END | disposition home or self-care (01) ==
LOC: LAB 10:22
PROVIDERS: PCP Family Medicine; Referring Provider Nurse Practitioner Gerontology; Visit Provider Nurse Practitioner Gerontology
DX: R06.00 Dyspnea, unspecified (principal)
CPT/HCPCS: 36415; 80048

== ENCOUNTER → 2024-04-23 | Outpatient (CLI) | payer MEDICARE, OTHER, SELFPAY ==
[2024-04-23 16:56] LABS: Absolute Neutrophil Count 3.1 X10^3/uL (2.0-7.7); Basophil# 0.05 X10^3/uL; Basophil% 1.1 % (0-1); Eosinophil# 0.09 X10^3/uL; Hematocrit 41.9 % (40-54); Hemoglobin 13.1 g/dL (13.0-16.5); Lymphocyte % 17.9 % (19-41); Mean Corp Hgb Conc 31.3 g/dL (32-36); Mean Corpuscular Hgb 29.1 pg (27.0-32.0); Mean Corpuscular Volume 93.1 fL (80-94); Mean Platelet Vol. 11.3 fl (6.2-12.0); Monocyte# 0.38 X10^3/uL; Monocyte% 8.5 % (0-10); NRBC Flagged by Analyzer 0 % (0-5); Neutrophil # 3.14 X10^3/uL (2.7-7.7); Neutrophil % 70.3 % (47-70); Platelet Count 100 K/mm3 (150-450); RBC Distribution Width CV 13.5 % (11.6-14.6); White Blood Count 4.5 K/mm3 (4.4-11.0)
[2024-04-23 17:21] LABS: Vitamin B12 291 pg/mL (211-911)
[2024-04-23 17:32] LABS: AST(SGOT) 19 U/L (15-37); Alanine Aminotransfer ALT/SGPT 19 U/L (16-61); Albumin, Serum 3.6 g/dL (3.2-5.0); Alkaline Phosphatase 78 U/L (45-117); Anion Gap 7 (5-15); BUN 21 mg/dL (7-18); BUN/Creat Ratio 13.2 RATIO (10-20); Calcium,Total 8.8 mg/dL (8.5-10.1); Chloride 108 mmol/L (98-107); Creatinine, Serum 1.59 mg/dL (0.70-1.30); EST Glomerular Filtration Rate 45 mL/min (>60); Est Glom Filt Rate - Afr Amer 54 mL/min (>60); Ferritin 74 ng/mL (26-388); Globulin 3.5 g/dL (2.2-4.2); Glucose 118 mg/dL (74-106); Iron 61 ug/dL (65-175); Magnesium 2.4 mg/dL (1.6-2.6); Protein, Total 7.1 g/dL (6.4-8.2); Sodium Level 138 mmol/L (136-145)
[2024-04-26 14:07] LABS: Folate, RBC (Hct) Test 39.7 % (37.5-51.0); Folates, RBC Test 1008 ng/mL (>498)
== END | disposition home or self-care (01) ==
PROVIDERS: PCP Family Medicine; Referring Provider Family Medicine; Visit Provider Family Medicine
DX: D64.9 Anemia, unspecified (principal); N17.9 Acute kidney failure, unspecified
CPT/HCPCS: 36415; 80053; 82607; 82728; 82747; 83540; 83735; 85014; 85025

== ENCOUNTER → 2024-05-20 | Outpatient (CLI) | payer MEDICARE, OTHER, SELFPAY ==
[2024-05-20 11:00] LABS: Anion Gap 5 (5-15); BUN 21 mg/dL (7-18); BUN/Creat Ratio 14.2 RATIO (10-20); Calcium,Total 9.2 mg/dL (8.5-10.1); Chloride 109 mmol/L (98-107); Creatinine, Serum 1.48 mg/dL (0.70-1.30); EST Glomerular Filtration Rate 49 mL/min (>60); Est Glom Filt Rate - Afr Amer 59 mL/min (>60); Glucose 107 mg/dL (74-106); PSA,Total - Annual Screen 1.25 ng/mL (0.00-4.00); Potassium 4.2 mmol/L (3.5-5.1); Sodium Level 140 mmol/L (136-145)
== END | disposition home or self-care (01) ==
LOC: LAB 09:51
PROVIDERS: Nurse Practitioner Gerontology; PCP Family Medicine; Referring Provider Urology; Visit Provider Urology
DX: Z12.5 Encounter for screening for malignant neoplasm of prostate (principal)
CPT/HCPCS: 36415; 80048; 84153; G0103

== ENCOUNTER → 2024-05-27 | Outpatient (CLI) | payer MEDICARE, OTHER, SELFPAY ==
--- NOTE | 2024-05-27 12:19 | STRESSREP ---
Stress Test Report Pharmacologic myocardial perfusion stress test. 78-year-old man with a history of dyspnea Resting EKG demonstrates AV sequential pacing with a rate of 70 bpm. Resting blood pressure is 116/72 mmHg. 0.4 mg of regadenoson was infused per usual protocol followed by rapid intravenous saline flush injection. Continuous EKG monitoring was performed. The maximum heart rate was 78 bpm which was 54% of max impacted heart rate the maximum workload was 1 metabolic equivalent. At rest there were no ST or T wave changes noted to suggest ischemia and at peak infusion nonspecific ST changes were noted which did not meet the criteria for ischemia. No clinical angina is noted. The final blood pressure was 104/62 mmHg. Myocardial perfusion protocol. 11 point mCi of technetium 99m sestamibi was injected at rest. 0.4 mg of regadenoson was infused per usual protocol. At peak infusion 36 mCi of technetium 99m sestamibi was injected stress images were obtained stress and rest images were reconstructed and compared in the short axis vertical long and horizontal long axis. Gated images were also obtained. Perfusion SPECT analysis: Review of the stress images demonstrate normal uptake of tracer noted in all areas of the myocardium. The resting images similar demonstrated normal uptake of tracer noted in all areas of the myocardium. No areas of reversibility are noted to suggest ischemia and no previous infarct is noted. Gated SPECT analysis: The gated ejection fraction is 46%. Conclusion: Normal pharmacologic myocardial perfusion stress test. Mildly reduced ejection fraction.
== END | disposition home or self-care (01) ==
LOC: CVS 07:15
PROVIDERS: PCP Family Medicine; Referring Provider Nurse Practitioner Gerontology; Visit Provider Nurse Practitioner Gerontology
DX: R06.00 Dyspnea, unspecified (principal); R53.83 Other fatigue
CPT/HCPCS: 78452; 93017; A9500; A4216; J2785

== ENCOUNTER → 2024-07-07 | Outpatient (CLI) | payer MEDICARE, OTHER, SELFPAY ==
[2024-07-07 13:00] LABS: Absolute Lymphocyte Count 0.66 X10^3/uL (0.83-4.51); Absolute Neutrophil Count 2.4 X10^3/uL (2.0-7.7); Basophil# 0.06 X10^3/uL; Basophil% 1.7 % (0-1); Eosinophil# 0.09 X10^3/uL; Eosinophils% 2.5 % (0-5); Hematocrit 41.1 % (40-54); Lymphocyte # 0.66 X10^3/ul (0.83-4.51); Lymphocyte % 18.2 % (19-41); Mean Corp Hgb Conc 31.6 g/dL (32-36); Mean Corpuscular Hgb 29.4 pg (27.0-32.0); Monocyte# 0.43 X10^3/uL; Monocyte% 11.8 % (0-10); NRBC Flagged by Analyzer 0 % (0-5); Neutrophil # 2.38 X10^3/uL (2.7-7.7); Neutrophil % 65.5 % (47-70); POSITIVE COUNT YES; Platelet Count 89 K/mm3 (150-450); RBC Distribution Width CV 14.7 % (11.6-14.6); RBC Distribution Width SD 50.3 fl (35.1-43.9); Red Blood Count 4.42 M/mm3 (4.6-6.2); White Blood Count 3.6 K/mm3 (4.4-11.0)
[2024-07-07 13:04] LABS: Differential Indicated SCAN CRITERIA MET
[2024-07-07 13:25] LABS: Differential Comment SCANNED; Platelet Estimate MOD DEC (ADEQ)
[2024-07-07 13:36] LABS: Vitamin B12 733 pg/mL (211-911)
[2024-07-07 13:45] LABS: T4 Free Direct 1.14 ng/dL (0.76-1.46); Thyroid Stim Hormone (TSH) 0.937 uIU/mL (0.358-3.740)
== END | disposition home or self-care (01) ==
LOC: LAB 12:16
PROVIDERS: PCP Family Medicine; Referring Provider Family Medicine; Visit Provider Family Medicine
DX: D64.9 Anemia, unspecified (principal); E55.9 Vitamin D deficiency, unspecified; E53.8 Deficiency of other specified B group vitamins; T46.2X1A Poisoning by other antidysrhythmic drugs, accidental (unintentional), initial encounter; E03.2 Hypothyroidism due to medicaments and other exogenous substances
CPT/HCPCS: 36415; 82306; 82607; 84439; 84443; 85025

== ENCOUNTER → 2024-07-30 | Outpatient (CLI) | payer MEDICARE, OTHER, SELFPAY ==
[2024-07-30 10:49] LABS: Absolute Lymphocyte Count 0.97 X10^3/uL (0.83-4.51); Absolute Neutrophil Count 2.7 X10^3/uL (2.0-7.7); Basophil# 0.07 X10^3/uL; Basophil% 1.6 % (0-1); Eosinophil# 0.16 X10^3/uL; Eosinophils% 3.7 % (0-5); Hematocrit 45.1 % (40-54); Hemoglobin 14.1 g/dL (13.0-16.5); Lymphocyte # 0.97 X10^3/ul (0.83-4.51); Lymphocyte % 22.5 % (19-41); Mean Corp Hgb Conc 31.3 g/dL (32-36); Mean Corpuscular Hgb 29.3 pg (27.0-32.0); Mean Corpuscular Volume 93.6 fL (80-94); Mean Platelet Vol. 9.7 fl (6.2-12.0); Monocyte# 0.42 X10^3/uL; Monocyte% 9.7 % (0-10); NRBC Flagged by Analyzer 0 % (0-5); Neutrophil % 62.5 % (47-70); POSITIVE COUNT YES; Platelet Count 93 K/mm3 (150-450); RBC Distribution Width CV 14.3 % (11.6-14.6); RBC Distribution Width SD 49.1 fl (35.1-43.9); Red Blood Count 4.82 M/mm3 (4.6-6.2); White Blood Count 4.3 K/mm3 (4.4-11.0)
[2024-07-30 10:56] LABS: Differential Indicated SCAN CRITERIA MET
[2024-07-30 11:08] LABS: BNP,B-Type NATRIURETIC PEPTIDE 39.2 pg/mL (0-100)
[2024-07-30 11:09] LABS: Anion Gap 5 (5-15); BUN 20 mg/dL (7-18); BUN/Creat Ratio 12.6 RATIO (10-20); Calcium,Total 9.1 mg/dL (8.5-10.1); Chloride 108 mmol/L (98-107); Creatinine, Serum 1.59 mg/dL (0.70-1.30); EST Glomerular Filtration Rate 45 mL/min (>60); Est Glom Filt Rate - Afr Amer 54 mL/min (>60); Glucose 91 mg/dL (74-106); Potassium 3.9 mmol/L (3.5-5.1); Sodium Level 138 mmol/L (136-145)
[2024-07-30 12:14] LABS: Differential Comment SCANNED; Platelet Estimate MOD DEC (ADEQ)
[2024-07-30 12:15] LABS: Red Cell Morphology NORM C+C NORMAL (NORM C&C)
== END | disposition home or self-care (01) ==
LOC: LAB 10:31
PROVIDERS: PCP Family Medicine; Referring Provider Nurse Practitioner Gerontology; Visit Provider Nurse Practitioner Gerontology
DX: R06.09 Other forms of dyspnea (principal)
CPT/HCPCS: 36415; 80048; 83880; 85025

== ENCOUNTER → 2024-09-11 | Outpatient (CLI) | payer MEDICARE, OTHER, SELFPAY ==
[2024-09-11 15:35] LABS: Anion Gap 5 (5-15); BUN 15 mg/dL (7-18); BUN/Creat Ratio 11.3 RATIO (10-20); Calcium,Total 9.4 mg/dL (8.5-10.1); Chloride 105 mmol/L (98-107); Creatinine, Serum 1.33 mg/dL (0.70-1.30); EST Glomerular Filtration Rate 55 mL/min (>60); Est Glom Filt Rate - Afr Amer 67 mL/min (>60); Glucose 113 mg/dL (74-106); Potassium 3.8 mmol/L (3.5-5.1); Sodium Level 136 mmol/L (136-145)
== END | disposition home or self-care (01) ==
PROVIDERS: PCP Family Medicine; Visit Provider Family Medicine
DX: R19.7 Diarrhea, unspecified (principal)
CPT/HCPCS: 36415; 80048; 82274; 87177; 87209

== ENCOUNTER → 2024-10-13 | Outpatient (CLI) | payer MEDICARE, OTHER, SELFPAY ==
--- NOTE | 2024-10-13 11:25 | RAD_ITS ---
STUDY: X-RAY - ABDOMEN/PELVIS REASON FOR EXAM: Male, 79 years old. r/o constipation TECHNIQUE: Single AP view of the abdomen / pelvis. COMPARISON: None. FINDINGS: Normal visualized lung bases. There is an unremarkable bowel gas pattern. The visualized liver, spleen and kidneys are grossly normal in size and morphology. Normal soft tissue structures. There are diffuse degenerative changes of the visualized lumbar spine. RAD/Abd Inc Decub and/or Erect IMPRESSION: Normal x-ray examination of the abdomen and pelvis. Electronically Signed: Dheeraj Rosales MD at 12:20 EST ,
[2024-10-13 12:39] LABS: CRP < 2.90 mg/L (0.0-3.0)
[2024-10-14 15:08] LABS: Endomysial Antibody IgA Negative (Negative); Immunoglobulin A 332 mg/dL (61-437); t-Transglutaminase IgA <2 U/mL (0-3)
== END | disposition home or self-care (01) ==
PROVIDERS: PCP Family Medicine; Referring Provider Nurse Practitioner Acute Care; Visit Provider Nurse Practitioner Acute Care
DX: R19.7 Diarrhea, unspecified (principal); R63.4 Abnormal weight loss
CPT/HCPCS: 36415; 74019; 82784; 83516; 86140; 86255

== ENCOUNTER → 2024-10-15 | Outpatient (CLI) | payer MEDICARE, OTHER, SELFPAY ==
[2024-10-18 01:06] LABS: Calprotectin, Stool 46 ug/g (0-120)
[2024-10-19 04:06] LABS: Giardia Lamblia, Stool EIA Negative (Negative); H. PYLORI STOOL AG Negative (Negative); Pancreatic Elastase, Fecal 646 (>200)
== END | disposition home or self-care (01) ==
LOC: LABSPEC 09:34
PROVIDERS: PCP Family Medicine; Referring Provider Nurse Practitioner Acute Care; Visit Provider Nurse Practitioner Acute Care
DX: R19.7 Diarrhea, unspecified (principal); K58.9 Irritable bowel syndrome, unspecified; R63.4 Abnormal weight loss
CPT/HCPCS: 82653; 83993; 87177; 87209; 87329; 87338; 87493; 87506

== ENCOUNTER 2024-11-11 19:42 | Emergency (ER) | payer MEDICARE, OTHER, SELFPAY ==
[2024-11-11 19:42] VITALS: BP 127/79; PULSE 80; RESP 18; TEMP 36.6; O2SAT 100
--- NOTE | 2024-11-11 20:26 | CT_ITS ---
EXAM: CT HEAD WITHOUT INTRAVENOUS CONTRAST CLINICAL INDICATION: Head trauma on anticoagulant TECHNIQUE: Multiple axial images were obtained of the head without intravenous contrast. This CT exam was performed using one or more of the following dose reduction techniques: automated exposure control, adjustment of the mA and/or kV according to patient size, and/or use of iterative reconstruction technique. COMPARISON: 10/14/2022 FINDINGS: BRAIN AND EXTRA-AXIAL SPACES: There is non-specific periventricular hypoattenuation which is most commonly related to chronic microvascular ischemic disease in a patient of this age. There is no mass, mass-effect, or shift of the midline structures. No evidence of acute infarct or acute intracranial hemorrhage. There is no evidence of pathologic extra-axial fluid. There is no hydrocephalus. Patent basal cisterns. BONES/JOINTS: Bilateral TMJ arthrosis. Degenerative changes partially visualized in the upper cervical spine. No discrete lytic or blastic abnormalities. SINUSES: No significant findings. MASTOID AIR CELLS: No significant effusion. ORBITS: Bilateral ocular lens extraction presumptively for the treatment of cataracts. Otherwise, no acute orbital pathology. DENTAL: The maxilla is edentulous. CT/Brain/Head without Contrast IMPRESSION: Chronic microvascular ischemic changes. No CT evidence of acute intracranial pathology. Electronically Signed: Richar Dudley DO at 21:04 EST ,
[2024-11-11 21:42] VITALS: BP 123/75; PULSE 62; RESP 16; O2SAT 98
--- NOTE | 2024-11-11 22:27 | EDS_ITS ---
HPI History of Present Illness Chief Complaint: Fall Detail of Chief Complaint: Head trauma on anticoagulant Informant: patient Onset/Context/Timing Onset: Today and Hours Mechanism/Context: Fall Quality of Pain: - (Scalp contusion with bleeding) Location: Fell outside due to on level ground Current Severity: Gone Maximum Severity: Mild Worsened by: Anticoagulant Relieved by: Nothing Associated Symptoms Associated Symptoms: Negative for Parasthesias, Weakness, Loss of function, Inability to ambulate, Loss of consciousness or Amnesia Narrative Narrative: Patient is a 79-year-old male. He lost his balance because of uneven ground. There was a step-off of 3 to 4 inches. He is on anticoagulant. He hit his head. He denies goetz ears decreased hearing. Eyes double vision blurred vision loss of vision. No trouble speech or swallowing. He denies chest pain or shortness of breath. He denies black or maroon-colored stool. He denies pain in his extremities. He denies paresthesia, anesthesia motors. Denies trouble with balance or coordination. Tetanus Immunization: 5-10 years Prior similar symptoms: Yes Recent Illness/Hospitalization: No PFSH PFSH Medical History Essential tremor Chronic a-fib Essential hypertension Wears glasses Loose, teeth Ambulates with cane Arthritis Thoracic aortic aneurysm Syncope MVP (mitral valve prolapse) Gastric reflux Shortness of breath on exertion Cardiology follow-up encounter Pacemaker ICD (implantable cardioverter-defibrillator) in place Pre-op evaluation Long-term use of high-risk medication Near syncope Chest pain SVT (supraventricular tachycardia) Nonrheumatic mitral (valve) prolapse Premature ventricular contraction Colitis GERD (gastroesophageal reflux disease) Depression Anemia Hypokalemia Thoracic aortic aneurysm without rupture Cardiomyopathy Ventricular tachycardia Hyperlipidemia Hypertension Home Medications ?Medication ?Instructions ?Recorded ?Last Taken ?Type vit C 250 mg-vit E 200 unit-zinc 1 cap PO BID 07/30/23 Unknown History ox 12.5 oe-ilschj-fummzd-zeax capsule (ICaps AREDS2) simvastatin 20 mg tablet 20 mg PO QHS cholesterol #90 tabs 04/21/24 Unknown Rx mecobalamin (vitamin B12) 1,000 1,000 mcg PO DAILY 05/01/24 Unknown History mcg chewable tablet amiodarone 200 mg tablet 100 mg (1/2 x 200 mg) PO DAILY Pt 07/30/24 Unknown Rx awaiting mail in RX, he is OUT of medication #30 tabs apixaban 5 mg tablet (Eliquis) 5 mg PO BID #180 tabs 07/30/24 Unknown Rx metoprolol succinate 25 mg 12.5 mg (1/2 x 25 mg) PO DAILY #45 09/21/24 Unknown Rx tablet,extended release 24 hr tabs empagliflozin 25 mg tablet 25 mg PO DAILY 10/13/24 Unknown History (Jardiance) sacubitril 97 mg-valsartan 103 mg 1 tab PO BID 10/13/24 Unknown History tablet (Entresto) Allergy/AdvReac Type Severity Reaction Status Date / Time No Known Allergies Allergy Verified 11/11/24 19:42 Family History Father Heart disease Sister Heart disease Brother Heart disease Mother Pancreas (digestive gland) works poorly Surgical History History of total left knee replacement History of bilateral cataract extraction Hx of atrioventricular node ablation History of partial nephrectomy (07/02/18) Presence of cardiac defibrillator History of tonsillectomy Social History household members: none current occupational status: retired Smoking Status: Former smoker how long ago did patient quit smokin alcohol intake: never substance use type: does not use caffeine: Yes Type: coffee Number of servings: 2 frequency: 1-2 times per week ROS ROS ED Constitutional Constitutional ED: Denies chills, fever(s), subjective or sweats Eyes Eyes: Denies blurry vision or change in vision ENT ENT ED: Denies ear pain, rhinorrhea or sore throat Cardiovascular Cardiovascular: Denies chest pain or palpitations Respiratory/Chest Respiratory/Chest: Denies cough, dyspnea or dyspnea on exertion Gastrointestinal Gastrointestinal: Denies abdominal pain, nausea or vomiting Genitourinary Genitourinary ED: Denies hematuria Musculoskeletal Musculoskeletal: Denies back pain or neck pain Integumentary Reports Abrasions Neurologic Neurologic: Denies headache(s), paresthesias or weakness Endocrine Endocrinology: Denies cold intolerance or heat intolerance Hematologic/Lymphatic Hematologic/Lymphatic: Denies easy bleeding or easy bruising EXAM Physical Exam Const Vital Signs: 11/11/24 19:42 11/11/24 21:42 11/11/24 21:53 Temperature 97.8 F Temperature Source Temporal Pulse Rate 80 62 Respiratory Rate 18 16 Respiratory Effort Normal Non-Labored Respiratory Depth Normal Respiratory Pattern Normal Blood Pressure 127/79 H 123/75 H Blood Pressure Mean 95 91 Pulse Ox 100 98 Oxygen Delivery Method Room Air Room Air Positive well nourished and well developed General Appearance ED: well developed and NAD HEENT HEENT Narrative: Patient is abrasion left frontal area over a superficial vein and source of bleeding. There is no laceration. There is no clinical findings base of skull fracture. There is no septal deviation hematoma. There is no trauma to his teeth. His glasses are bent. There is no step-off infraorbital nerve. There is no entrapment with upward gaze. There is no hyperesthesia to the infraorbital nerve. There is no evidence of dental trauma. Nose: Negative for septum abnormal Eyes PERRL and EOMs intact bilaterally General Eye ED: Yes other Other Details: There is no subconjunctival hemorrhage. Neck full ROM Neck Narrative: Patient has no posterior midline cervical neck pain. Chest Wall inspection of chest normal and palpation of chest normal Resp normal respiratory effort and clear to auscultation bilaterally Cardio regular rhythm, S1 normal heart sound, S2 normal heart sound and no murmurs Rate: regular rate GI normal to inspection, nondistended, normoactive bowel sounds, non-tender, non- distended and no masses Extremity normal to inspection and full ROM General Extremety ED: Negative for deformity, edema or tenderness General Extremity: Negative for deformity or edema Neuro oriented x3, CN's II-XII intact bilaterally, moves all extremities, no focal motor deficits and no sensory deficits noted [place] Coma Scale: document GCS findings Spontaneous Extensor Response Oriented 11 Sensorium / Orientation: alert Motor Exam: strength 5/5 throughout Psych mental status grossly normal and thought process normal Skin no rashes or lesions noted, No no wounds, skin turgor normal and no jaundice Skin Narrative: Superficial laceration 1 2 mm scalp causing bleeding MDM MDM MDM Narrative Medical decision making narrative: With evidence of head trauma on anticoagulant CT of the head was obtained per the [place] CT head rule and [place] rule. C-spine was cleared per Nexus criteria. CT of the head revealed no evidence of subdural, epidural, traumatic subarachnoid or intraparenchymal bleed. The CAT scan was obtained to rule out bleed. Awaiting formal read by radiologist. Radiography Diagnostic Testing: Clinical Impression(s) from Imaging Studies Brain CT 11/11/24 20:26 IMPRESSION: Chronic microvascular ischemic changes. No CT evidence of acute intracranial pathology. 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, Anticoagulant long-term use, Superficial laceration of scalp Instructions: ED Head Injury (Adult) Prescriptions: No Action ICaps AREDS2 250 mg-200 unit -12.5 mg-1 mg capsule 1 cap PO BID mecobalamin (vitamin B12) 1,000 mcg tablet,chewable 1,000 mcg PO DAILY Eliquis 5 mg tablet 5 mg PO BID Qty: 180 4RF amiodarone 200 mg tablet 100 mg PO DAILY Qty: 30 0RF Rx Instructions: heart rate sacubitril-valsartan [Entresto] 97-103 mg tablet 1 tab PO BID Jardiance 25 mg tablet 25 mg PO DAILY simvastatin 20 mg tablet 20 mg PO QHS Qty: 90 3RF metoprolol succinate 25 mg tablet extended release 24 hr 12.5 mg PO DAILY Qty: 45 3RF Primary Care Provider: Helen Lainez Referrals: Helen Lainez MD [Primary Care Provider] - As Needed Print Language: Burmese Disposition Disposition: Home, Self Care
== END 2024-11-11 22:58 | disposition home or self-care (01) ==
PROVIDERS: Emergency Provider Emergency Medicine; PCP Family Medicine; Visit Provider Emergency Medicine
DX: S01.01XA Laceration without foreign body of scalp, initial encounter (principal); I48.91 Unspecified atrial fibrillation; I42.9 Cardiomyopathy, unspecified; Z79.01 Long term (current) use of anticoagulants; I10 Essential (primary) hypertension; Z87.891 Personal history of nicotine dependence; E78.5 Hyperlipidemia, unspecified; Z90.710 Acquired absence of both cervix and uterus; W18.30XA Fall on same level, unspecified, initial encounter
CPT/HCPCS: 70450; 99283

== ENCOUNTER 2025-01-26 17:50 | Emergency (ER) | payer OTHER, SELFPAY ==
[2025-01-26 17:51] VITALS: BP 111/66; PULSE 70; RESP 18; TEMP 36.8; O2SAT 100; BMI 19.1
--- NOTE | 2025-01-26 19:04 | EX.ED.VIS.EY ---
HPI History of Present Illness Chief Complaint: Eye Problem Onset/Context/Timing Location: Left Eye Onset: Hours (2) Context: Sudden Onset Timing: Continuous Worsened by: Nothing Relieved by: Nothing Associated Symptoms Associated Symptoms - Eyes: Pain and Redness; Negative for Burning, Crusting, Drainage, Eyelid swelling, Foreign body sensation, Itching, Matting or Photophobia Visual Changes: left: Blurred vision History of injury: No Visual correction: Glasses Narrative Narrative: Patient presents with left eye redness and swelling that began approximately 2 hours prior to arrival. Patient states he was driving and he felt pressure in his left eye. Patient states he got home and looked in the mirror. Patient noted redness to his left eye. Patient admits to some blurry vision. Patient denies any trauma or injury. The patient denies any matting or crusting. Patient denies any itching or drainage. Patient wears glasses. Patient is on Eliquis for atrial fibrillation. [facility] Medical History Essential tremor Chronic a-fib Essential hypertension Wears glasses Loose, teeth Ambulates with cane Arthritis Thoracic aortic aneurysm Syncope MVP (mitral valve prolapse) Gastric reflux Shortness of breath on exertion Cardiology follow-up encounter Pacemaker ICD (implantable cardioverter-defibrillator) in place Pre-op evaluation Long-term use of high-risk medication Near syncope Chest pain SVT (supraventricular tachycardia) Nonrheumatic mitral (valve) prolapse Premature ventricular contraction Colitis GERD (gastroesophageal reflux disease) Depression Anemia Hypokalemia Thoracic aortic aneurysm without rupture Cardiomyopathy Ventricular tachycardia Hyperlipidemia Hypertension Home Medications ?Medication ?Instructions ?Recorded ?Last Taken ?Type vit C 250 mg-vit E 200 unit-zinc 1 cap PO BID 07/30/23 Unknown History ox 12.5 ti-lerhin-ihtiuk-zeax capsule (ICaps AREDS2) simvastatin 20 mg tablet 20 mg PO QHS cholesterol #90 tabs 04/21/24 Unknown Rx mecobalamin (vitamin B12) 1,000 1,000 mcg PO DAILY 05/01/24 Unknown History mcg chewable tablet amiodarone 200 mg tablet 100 mg (1/2 x 200 mg) PO DAILY Pt 07/30/24 Unknown Rx awaiting mail in RX, he is OUT of medication #30 tabs apixaban 5 mg tablet (Eliquis) 5 mg PO BID #180 tabs 07/30/24 Unknown Rx metoprolol succinate 25 mg 12.5 mg (1/2 x 25 mg) PO DAILY #45 09/21/24 Unknown Rx tablet,extended release 24 hr tabs empagliflozin 25 mg tablet 25 mg PO DAILY 10/13/24 Unknown History (Jardiance) sacubitril 97 mg-valsartan 103 mg 1 tab PO BID 10/13/24 Unknown History tablet (Entresto) venlafaxine 37.5 mg 37.5 mg PO DAILY 11/11/24 Unknown History capsule,extended release 24 hr Allergy/AdvReac Type Severity Reaction Status Date / Time No Known Allergies Allergy Verified 01/26/25 17:51 Family History Father Heart disease Sister Heart disease Brother Heart disease Mother Pancreas (digestive gland) works poorly Surgical History History of total left knee replacement History of bilateral cataract extraction Hx of atrioventricular node ablation History of partial nephrectomy (07/02/18) Presence of cardiac defibrillator History of tonsillectomy Social History household members: none current occupational status: retired Smoking Status: Former smoker how long ago did patient quit smokin alcohol intake: never substance use type: does not use caffeine: Yes Type: coffee Number of servings: 2 frequency: 1-2 times per week ROS ROS ED Constitutional Constitutional ED: Denies chills or fever(s) Eyes Eyes: Denies blurry vision or change in vision ENT ENT ED: Denies rhinorrhea or sore throat Cardiovascular Cardiovascular: Denies chest pain or palpitations Respiratory/Chest Respiratory/Chest: Denies cough or dyspnea Gastrointestinal Gastrointestinal: Denies nausea or vomiting Genitourinary Genitourinary ED: Denies dysuria or hematuria Musculoskeletal Musculoskeletal: Reports back pain and neck pain Integumentary Denies abscess or rash Neurologic Neurologic: Reports headache(s); Denies weakness Allergic/Immunologic Allergic/Immunologic ED: Denies mouth swelling or urticaria EXAM Physical Exam Const Vital Signs: 01/26/25 17:51 Temperature 98.2 F Temperature Source Temporal Pulse Rate 70 Respiratory Rate 18 Blood Pressure 111/66 Blood Pressure Mean 81 Pulse Ox 100 Oxygen Delivery Method Room Air Positive well nourished and well developed General Appearance ED: well developed and NAD HEENT atraumatic Eyes Eyes Narrative: Pupils are equal, round, and reactive to light bilaterally. Extraocular muscles are intact. There is a large subconjunctival hemorrhage that is worse over the medial aspect of the left eye. Anterior chamber was clear. There is no hyphema. There is no cell or flare. Funduscopic examination was benign. Visual acuity was obtained and was 20/50 in the left eye, 20/40 in the right eye, and 20/40 in both eyes. Neck supple and no JVD Neuro oriented x3, CN's II-XII intact bilaterally, moves all extremities and no sensory deficits noted Sensorium / Orientation: alert Motor Exam: strength 5/5 throughout MDM MDM MDM Narrative Medical decision making narrative: Patient was advised that this is a some conjunctival hemorrhage and there is no emergent treatment for this. Patient was advised that it may take a week or 2 for this to resolve. Patient was instructed to follow-up with his primary care physician in 5 to 7 days. Patient was instructed to return if worse in any way. Patient understood and was agreeable with the plan. All questions were answered. Discharge Plan Triage Chief Complaint: Eye Problem ED Provider: Efrain Giron Dx/Rx/DC Orders Clinical Impression: Subconjunctival hemorrhage of left eye, Anticoagulant long-term use Instructions: ED Subconjunctival Hemorrhage Prescriptions: No Action ICaps AREDS2 250 mg-200 unit -12.5 mg-1 mg capsule 1 cap PO BID mecobalamin (vitamin B12) 1,000 mcg tablet,chewable 1,000 mcg PO DAILY Eliquis 5 mg tablet 5 mg PO BID Qty: 180 4RF amiodarone 200 mg tablet 100 mg PO DAILY Qty: 30 0RF Rx Instructions: heart rate sacubitril-valsartan [Entresto] 97-103 mg tablet 1 tab PO BID Jardiance 25 mg tablet 25 mg PO DAILY venlafaxine 37.5 mg capsule,extended release 24hr 37.5 mg PO DAILY simvastatin 20 mg tablet 20 mg PO QHS Qty: 90 3RF metoprolol succinate 25 mg tablet extended release 24 hr 12.5 mg PO DAILY Qty: 45 3RF Primary Care Provider: Helen Lainez Referrals: Helen Lainez MD [Primary Care Provider] - 5-7 Days Print Language: Azeri Disposition Disposition: Home, Self Care
[2025-01-26 19:19] VITALS: BP 112/80; PULSE 65; RESP 12; TEMP 36.8; O2SAT 100
== END 2025-01-26 19:40 | disposition home or self-care (01) ==
LOC: ED 19:42
PROVIDERS: Emergency Provider Emergency Medicine; PCP Family Medicine; Visit Provider Emergency Medicine
DX: H11.32 Conjunctival hemorrhage, left eye (principal); I48.91 Unspecified atrial fibrillation; E78.5 Hyperlipidemia, unspecified; Z79.01 Long term (current) use of anticoagulants; I10 Essential (primary) hypertension; Z87.891 Personal history of nicotine dependence; Z95.810 Presence of automatic (implantable) cardiac defibrillator
CPT/HCPCS: 99283

== ENCOUNTER 2025-02-10 07:25 | Day surgery (SDC) | payer MEDICARE, SELFPAY ==
--- NOTE | 2025-02-09 13:20 | PAT.ANE_ITS ---
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 When Was Last Pacemaker Check 03/26/18 06/26/18 10:06 QUESTION #4 FULL TEXT: You/Your Family Experience fever (hyperthermia) with Anesthesia Last Oral Intake Last Oral intake: Last Oral Intake NPO since Meds taken in AM with sips of water? Meds patient instructed to take am of surgery PONV PONV - housekeeper/laundry assistant: PONV - housekeeper/laundry assistant Female No 02/09/25 11:24 HX of Motion Sickness No 02/09/25 11:24 HX of N/V After Surgery No 02/09/25 11:24 Non-Smoker Yes 02/09/25 11:24 Duration of Surgery greater No 02/09/25 11:24 than 60 minutes Number of Risk Factors 1 02/09/25 11:24 PONV Score Low Risk 02/09/25 11:24 Height & Weight Height & Weight: Anesthesia: Height & Weight Height 6 ft 3 in 11/11/24 19:42 Respiratory Assessment Respiratory Assessment - housekeeper/laundry assistant: Respiratory Tract Infection Hx - housekeeper/laundry assistant Hx Respiratory Tract Infection No 02/09/25 11:24 STOP Sleep Apnea STOP Sleep Apnea - housekeeper/laundry assistant: STOP Sleep Apnea - housekeeper/laundry assistant Hx Hypertension Yes: CONTROLLED WITH MED 02/09/25 11:24 Hx Sleep Apnea No 02/09/25 11:24 CPAP BIPAP Do you snore loudly (louder No 02/09/25 11:24 than talking or can be heard Do you often feel tired/ Yes 02/09/25 11:24 fatigued/ sleepy during daytime? Has anyone observed you stop No 02/09/25 11:24 breathing during sleep? STOP Results Positive 02/09/25 11:24 QUESTION #5 FULL TEXT : Do you snore loudly (louder than talking or can be heard through closed doors)? 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 Specify any problems Hx of Preganancy in last 3 N/A 02/09/25 11:24 Months Nurse Filling Out Transfusion DSCHRIBER 02/09/25 11:24 & Questions: Date: 02/09/25 02/09/25 11:24 Time: 11:26 02/09/25 11:24 Patient unable to answer at this time (ie. confused, unrespo /Reproduction History /Reproductive History - housekeeper/laundry assistant: /Reproductive Hx- housekeeper/laundry assistant Hx Now No 02/09/25 11:24 Gestational Age (in weeks): EDC: Hx Hx Para Hx Section SAB No 02/09/25 11:24 PFSH Medical History (Updated 02/09/25 @ 11:39 by Betty Patrick) COPD (chronic obstructive pulmonary disease) Loss of hearing Cancer Anxiety Alcohol use Low iron Back pain History of IBS Former smoker History of echocardiogram History of stress test Essential tremor Chronic a-fib Essential hypertension Wears glasses Arthritis Thoracic aortic aneurysm Syncope MVP (mitral valve prolapse) Shortness of breath on exertion Cardiology follow-up encounter Pacemaker ICD (implantable cardioverter-defibrillator) in place Long-term use of high-risk medication Near syncope SVT (supraventricular tachycardia) Nonrheumatic mitral (valve) prolapse Premature ventricular contraction Colitis Depression Thoracic aortic aneurysm without rupture Cardiomyopathy Ventricular tachycardia Hyperlipidemia Hypertension Home Medications ?Medication ?Instructions ?Recorded ?Last Taken ?Type vit C 250 mg-vit E 200 unit-zinc 1 cap PO BID 07/30/23 Unknown History ox 12.5 nt-nqignn-seplze-zeax capsule (ICaps AREDS2) simvastatin 20 mg tablet 20 mg PO QHS cholesterol #90 tabs 04/21/24 Unknown Rx mecobalamin (vitamin B12) 1,000 1,000 mcg PO DAILY 06/17 Unknown History mcg chewable tablet amiodarone 200 mg tablet 100 mg (1/2 x 200 mg) PO KANDI LY Pt 07/30/24 Unknown Rx awaiting mail in RX, he is OUT of medication #30 tabs apixaban 5 mg tablet (Eliquis) 5 mg PO BID #180 tabs 0 07/30/24 02/07/25 Rx empagliflozin 25 mg tablet 25 mg PO DAILY 10/13/24 History (Jardiance) sacubitril 97 mg-valsartan 103 mg 1 tab PO BID 4 Unknown History tablet (Entresto) metoprolol succinate 25 mg 12.5 mg PO QHS 02/09/25 Unk nown History tablet,extended release 24 hr Allergy/AdvReac Type Severity Reaction Status Date / Time No Known Allergies Allergy Verified 02/09/25 11:21 Family History Father Heart disease Sister Heart disease Brother Heart disease Mother Pancreas (digestive gland) works poorly Surgical History (Updated 02/09/25 @ 11:36 by Betty Patrick) Hx of colonoscopy History of total left knee replacement History of bilateral cataract extraction Hx of atrioventricular node ablation History of partial nephrectomy (07/02/18) Presence of cardiac defibrillator History of tonsillectomy Social History household members: none current occupational status: retired Smoking Status: Former smoker how long ago did patient quit smokin alcohol intake: never substance use type: does not use caffeine: Yes Type: coffee Number of servings: 2 frequency: 1-2 times per week Audit: Pertinent Findings Pertinent Findings EKG Perinent findings: Electronic dual-chamber pacemaker -possibly demand type Pacemaker ECG, Stress test pertinent findings: Conclusion: Normal pharmacologic myocardial perfusion stress test. Mildly reduced ejection fraction. Echo (EF%) pertinent findings: ECHO/Echo, Limited Study Interpretation Summary The left ventricular ejection fraction is 35 %. Normal LV size. There is moderate global hypokinesis of the left ventricle. ICD or pacer leads identified within the right ventricle. Stage 1 diastolic dysfunction. The global longitudinal strain is moderately abnormal. The global longitudinal strain = -13.4% (abnormal). Consult pertinent findings: Patient is a 79-year-old white male that comes in today for monitoring of his cardiovascular status. He carries a history of a nonischemic dilated cardiomyopathy EF known to be in the 35% range on e chocardiogram done February 2024. The patient has an ICD in place due to a history of VT. He also had supraventricular tachycardia and ICD firings. He is on long-term amiodarone therapy. His labs were checked at the [place] in September showed normal liver function by his report his thyroid was normal June 2024 labs that were done here at [place] and he had a negative chest x-ray March 2024. The patient also reports that he had PFTs and due to is due to have a high- resolution CT for lung cancer screening in the near future at the [place]. The patient has a history of hypertension his blood pressure is well-controlled on his current medical regimen. He also has a history of thoracic aortic aneurysm measuring 3.8 cm on a CTA in July 2023. He has a history of hyperlipidemia and dyspnea on exertion. He is also a remote smoker. Recommendation Anesthesia Recommendation Anesthesia recommendation: F/U recommended (Please obtain cardiac clearance for this patient. )
--- NOTE | 2025-02-09 15:30 | PAT.ANE_ITS ---
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 When Was Last Pacemaker Check 03/26/18 06/26/18 10:06 QUESTION #4 FULL TEXT: You/Your Family Experience fever (hyperthermia) with Anesthesia Last Oral Intake Last Oral intake: Last Oral Intake NPO since Meds taken in AM with sips of water? Meds patient instructed to take am of surgery PONV PONV - cocoa bean roaster helper: PONV - cocoa bean roaster helper Female No 02/09/25 11:24 HX of Motion Sickness No 02/09/25 11:24 HX of N/V After Surgery No 02/09/25 11:24 Non-Smoker Yes 02/09/25 11:24 Duration of Surgery greater No 02/09/25 11:24 than 60 minutes Number of Risk Factors 1 02/09/25 11:24 PONV Score Low Risk 02/09/25 11:24 Height & Weight Height & Weight: Anesthesia: Height & Weight Height 6 ft 3 in 11/11/24 19:42 Respiratory Assessment Respiratory Assessment - cocoa bean roaster helper: Respiratory Tract Infection Hx - cocoa bean roaster helper Hx Respiratory Tract Infection No 02/09/25 11:24 STOP Sleep Apnea STOP Sleep Apnea - cocoa bean roaster helper: STOP Sleep Apnea - cocoa bean roaster helper Hx Hypertension Yes: CONTROLLED WITH MED 02/09/25 11:24 Hx Sleep Apnea No 02/09/25 11:24 CPAP BIPAP Do you snore loudly (louder No 02/09/25 11:24 than talking or can be heard Do you often feel tired/ Yes 02/09/25 11:24 fatigued/ sleepy during daytime? Has anyone observed you stop No 02/09/25 11:24 breathing during sleep? STOP Results Positive 02/09/25 11:24 QUESTION #5 FULL TEXT : Do you snore loudly (louder than talking or can be heard through closed doors)? 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 Specify any problems Hx of Preganancy in last 3 N/A 02/09/25 11:24 Months Nurse Filling Out Transfusion DSCHRIBER 02/09/25 11:24 & Questions: Date: 02/09/25 02/09/25 11:24 Time: 11:26 02/09/25 11:24 Patient unable to answer at this time (ie. confused, unrespo /Reproduction History /Reproductive History - cocoa bean roaster helper: /Reproductive Hx- cocoa bean roaster helper Hx Now No 02/09/25 11:24 Gestational Age (in weeks): EDC: Hx Hx Para Hx Section SAB No 02/09/25 11:24 PFSH Medical History (Updated 02/09/25 @ 11:39 by Betty Patrick) COPD (chronic obstructive pulmonary disease) Loss of hearing Cancer Anxiety Alcohol use Low iron Back pain History of IBS Former smoker History of echocardiogram History of stress test Essential tremor Chronic a-fib Essential hypertension Wears glasses Arthritis Thoracic aortic aneurysm Syncope MVP (mitral valve prolapse) Shortness of breath on exertion Cardiology follow-up encounter Pacemaker ICD (implantable cardioverter-defibrillator) in place Long-term use of high-risk medication Near syncope SVT (supraventricular tachycardia) Nonrheumatic mitral (valve) prolapse Premature ventricular contraction Colitis Depression Thoracic aortic aneurysm without rupture Cardiomyopathy Ventricular tachycardia Hyperlipidemia Hypertension Home Medications ?Medication ?Instructions ?Recorded ?Last Taken ?Type vit C 250 mg-vit E 200 unit-zinc 1 cap PO BID 07/30/23 Unknown History ox 12.5 rk-lvhmvo-ihfiwu-zeax capsule (ICaps AREDS2) simvastatin 20 mg tablet 20 mg PO QHS cholesterol #90 tabs 04/21/24 Unknown Rx mecobalamin (vitamin B12) 1,000 1,000 mcg PO DAILY 06/17 Unknown History mcg chewable tablet amiodarone 200 mg tablet 100 mg (1/2 x 200 mg) PO KANDI LY Pt 07/30/24 Unknown Rx awaiting mail in RX, he is OUT of medication #30 tabs apixaban 5 mg tablet (Eliquis) 5 mg PO BID #180 tabs 0 07/30/24 02/07/25 Rx empagliflozin 25 mg tablet 25 mg PO DAILY 10/13/24 History (Jardiance) sacubitril 97 mg-valsartan 103 mg 1 tab PO BID 4 Unknown History tablet (Entresto) metoprolol succinate 25 mg 12.5 mg PO QHS 02/09/25 Unk nown History tablet,extended release 24 hr Allergy/AdvReac Type Severity Reaction Status Date / Time No Known Allergies Allergy Verified 02/09/25 11:21 Family History Father Heart disease Sister Heart disease Brother Heart disease Mother Pancreas (digestive gland) works poorly Surgical History (Updated 02/09/25 @ 11:36 by Betty Patrick) Hx of colonoscopy History of total left knee replacement History of bilateral cataract extraction Hx of atrioventricular node ablation History of partial nephrectomy (07/02/18) Presence of cardiac defibrillator History of tonsillectomy Social History household members: none current occupational status: retired Smoking Status: Former smoker how long ago did patient quit smokin alcohol intake: never substance use type: does not use caffeine: Yes Type: coffee Number of servings: 2 frequency: 1-2 times per week Audit: Pertinent Findings HISTORY of Pertinent Findings History of Pertinent Findings: EKG Pertinent Findings EKG Perinent findings Electronic dual-chamber 02/09/25 13:22 pacemaker -possibly demand type Pacemaker ECG, Stress Test Pertinent Findings Stress test pertinent findings Conclusion: 02/09/25 13:22 Normal pharmacologic myocardial perfusion stress test. Mildly reduced ejection fraction. Echo Pertinent Findings Echo (EF%) pertinent findings ECHO/Echo 02/09/25 13:23 , Limited Study Interpretation Summary The left ventricular ejection fraction is 35 %. Normal LV size. There is moderate global hypokinesis of the left ventricle. ICD or pacer leads identified within the right ventricle. Stage 1 diastolic dysfunction. The global longitudinal strain is moderately abnormal. The global longitudinal strain = -13.4% (abnormal). Consult Pertinent Findings Consult pertinent findings Patient is a 79-year-old 02/09/25 13:22 white male that comes in today for monitoring of his cardiovascular status. He carries a history of a nonischemic dilated cardiomyopathy EF known to be in the 35% range on echocardiogram done February 2024. The patient has an ICD in place due to a history of VT. He also had supraventricular tachycardia and ICD firings. He is on long-term amiodarone therapy . His labs were checked at the [place] in September showed normal liver function by his report his thyroid was normal June 2024 labs that were done here at [place] and he had a negative chest x-ray March 2024. The patient also reports that he had PFTs and due to is due to have a high-resolution CT for lung cancer screening in the near future at the [place]. The patient has a history of hypertension his blood pressure is well-controlled on his current medical regimen. He also has a history of thoracic aortic aneurysm measuring 3.8 cm on a CTA in July 2023. He has a history of hyperlipidemia and dyspnea on exertion. He is also a remote smoker. Recommendation Anesthesia Recommendation Anesthesia recommendation: OPTIMIZED for anesthesia (Cardiac clearance obtained from [facility]. )
[2025-02-10] VITALS (8 sets, daily range): BP systolic 74–97; BP diastolic 47–67; PULSE 70–75; RESP 16–20; TEMP 36.1–36.2; O2SAT 97–100; BMI 18.4
--- NOTE | 2025-02-10 08:25 | PCM.PRE.AN2 ---
ASA Classification* ASA Classification ASA Classification: 2 Assessment & Plan Anesthesia* Anesthesia Assessment Anesthesia Assessment: Discussed sedation and/or anesthesia options, risks, benefits, and alternatives with patient/parents/legal guardian/POA. Questions invited. The patient/parents/legal guardian/POA seems to understand and agrees to proceed with anesthesia plan. Reviewed the physical assessment, medical history, allergy history and patient home medications list prior to surgery/procedure/anesthetic and documented any changes. Performed airway and anesthesia risk assessments. Anesthesia Type Anesthesia Type: MAC History Source History Obtained from:: Patient and Chart Anesthesia Focused Assessment* Temperature: 97.2 F Pulse Rate: 70 Blood Pressure: 97/67 Respiratory Rate: 16 Pulse Ox: 100 Oxygen Delivery Method: Room Air Airway Assessment Mouth opens: >3 cm Mallampati Score: I Teeth Condition: Missing (Patient is edentulous on the top. Bottom teeth are intact.) Neck Range of motion (ROM): Limited ROM Focused Labs Anesthesia Preop lab: CBC WBC 4.3 K/mm3 (4.4-11.0) L 07/30/24 10:07/30/24 RBC 4.82 M/mm3 (4.6-6.2) 07/30/24 10:07/30/24 Hgb 14.1 g/dL (13.0-16.5) 07/30/24 10:07/30/24 Hct 45.1 % (40-54) 07/30/24 10:07/30/24 Plt Count 93 K/mm3 (150-450) L 07/30/24 10:07/30/24 CHEMISTRY Potassium 3.8 mmol/L (3.5-5.1) 09/11/24 13:19 09/11/24 Sodium 136 mmol/L (136-145) 09/11/24 13:19 09/11/24 Magnesium 2.4 mg/dL (1.6-2.6) 04/23/24 15:22 04/23/24 Phosphorus 2.4 mg/dL (2.5-4.9) L 07/04/23 10:01 07/04/23 BUN 15 mg/dL (7-18) 09/11/24 13:19 09/11/24 Creatinine 1.33 mg/dL (0.70-1.30) H 09/11/24 13:19 09/11/24 Glucose 113 mg/dL (74-106) H 09/11/24 13:19 09/11/24 TSH 0.937 uIU/mL (0.358-3.740) 07/07/24 12:34 07/07/24 COAG PT 17.2 SECONDS (11.7-14.9) H 02/07/24 17:40 02/07/24 Pre-Assessment Diagnosis/Proposed Procedure Planned Operative Procedure(s): CSCOPE Anesthesia History 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 When Was Last Pacemaker Check 03/26/18 06/26/18 10:06 QUESTION #4 FULL TEXT: You/Your Family Experience fever (hyperthermia) with Anesthesia Last Oral Intake Last Oral intake: Last Oral Intake NPO since 00:00 02/10/25 08:03 Meds taken in AM with sips of Yes 02/10/25 08:03 water? Meds patient instructed to amiodarone 02/10/25 08:03 take am of surgery emtrestp Any additional information?: Yes NPO since: 04:30 (Patient finished prep at 4:30 AM.) Meds taken in AM with sips of water?: Yes PONV PONV - ornamental plasterer helper: PONV - ornamental plasterer helper Female No 02/09/25 11:24 HX of Motion Sickness No 02/09/25 11:24 HX of N/V After Surgery No 02/09/25 11:24 Non-Smoker Yes 02/09/25 11:24 Duration of Surgery greater No 02/09/25 11:24 than 60 minutes Number of Risk Factors 1 02/09/25 11:24 PONV Score Low Risk 02/09/25 11:24 Height & Weight Height & Weight: Anesthesia: Height & Weight Height 6 ft 3 in 02/10/25 08:03 Weight: 67 kg 02/10/25 08:03 Body Mass Index (BMI) 18.4 02/10/25 08:03 Respiratory Assessment Respiratory Assessment - ornamental plasterer helper: Respiratory Tract Infection Hx - ornamental plasterer helper Hx Respiratory Tract Infection No 02/09/25 11:24 STOP Sleep Apnea STOP Sleep Apnea - ornamental plasterer helper: STOP Sleep Apnea - ornamental plasterer helper Hx Hypertension Yes: CONTROLLED WITH MED 02/09/25 11:24 Hx Sleep Apnea No 02/09/25 11:24 CPAP BIPAP Do you snore loudly (louder No 02/09/25 11:24 than talking or can be heard Do you often feel tired/ Yes 02/09/25 11:24 fatigued/ sleepy during daytime? Has anyone observed you stop No 02/09/25 11:24 breathing during sleep? STOP Results Positive 02/09/25 11:24 QUESTION #5 FULL TEXT : Do you snore loudly (louder than talking or can be heard through closed doors)? 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 Specify any problems Hx of Preganancy in last 3 N/A 02/09/25 11:24 Months Nurse Filling Out Transfusion DSCHRIBER 02/09/25 11:24 & Questions: Date: 02/09/25 02/09/25 11:24 Time: 11:02/09/25 11:24 Patient unable to answer at this time (ie. confused, unrespo /Reproduction History /Reproductive History - ornamental plasterer helper: /Reproductive Hx- ornamental plasterer helper Hx Now No 02/09/25 11:24 Gestational Age (in weeks): EDC: Hx Hx Para Hx Section SAB No 02/09/25 11:24 [facility] Medical History COPD (chronic obstructive pulmonary disease) Loss of hearing Cancer Anxiety Alcohol use Low iron Back pain History of IBS Former smoker History of echocardiogram History of stress test Essential tremor Chronic a-fib Essential hypertension Wears glasses Arthritis Thoracic aortic aneurysm Syncope MVP (mitral valve prolapse) Shortness of breath on exertion Cardiology follow-up encounter Pacemaker ICD (implantable cardioverter-defibrillator) in place Long-term use of high-risk medication Near syncope SVT (supraventricular tachycardia) Nonrheumatic mitral (valve) prolapse Premature ventricular contraction Colitis Depression Thoracic aortic aneurysm without rupture Cardiomyopathy Ventricular tachycardia Hyperlipidemia Hypertension Home Medications ?Medication ?Instructions ?Recorded ?Last Taken ?Type vit C 250 mg-vit E 200 unit-zinc 1 cap PO BID 07/30/23 Unknown History ox 12.5 bj-ievzuj-lvlfbo-zeax capsule (ICaps AREDS2) simvastatin 20 mg tablet 20 mg PO QHS cholesterol #90 tabs 04/21/24 02/08/25 Rx mecobalamin (vitamin B12) 1,000 1,000 mcg PO DAILY 05/01/24 02/09/25 History mcg chewable tablet amiodarone 200 mg tablet 100 mg (1/2 x 200 mg) PO DAILY Pt 07/30/24 02/10/25 Rx awaiting mail in RX, he is OUT of medication #30 tabs apixaban 5 mg tablet (Eliquis) 5 mg PO BID #180 tabs 07/30/24 02/07/25 Rx empagliflozin 25 mg tablet 25 mg PO DAILY 10/13/24 02/07/25 History (Jardiance) sacubitril 97 mg-valsartan 103 mg 1 tab PO BID 10/13/24 02/10/25 History tablet (Entresto) metoprolol succinate 25 mg 12.5 mg PO QHS 02/09/25 Unknown History tablet,extended release 24 hr Allergy/AdvReac Type Severity Reaction Status Date / Time No Known Allergies Allergy Verified 02/09/25 11:21 Family History Father Heart disease Sister Heart disease Brother Heart disease Mother Pancreas (digestive gland) works poorly Surgical History Hx of colonoscopy History of total left knee replacement History of bilateral cataract extraction Hx of atrioventricular node ablation History of partial nephrectomy (07/02/18) Presence of cardiac defibrillator History of tonsillectomy Social History household members: none current occupational status: retired Smoking Status: Former smoker how long ago did patient quit smokin alcohol intake: never substance use type: does not use caffeine: Yes Type: coffee Number of servings: 2 frequency: 1-2 times per week Review of Systems (Anesthesia) ROS Narrative System reviewed and no additional complaints, except as documented.
--- NOTE | 2025-02-10 08:33 | HP.PCM_ITS ---
HPI - General General Date of Admission: 02/10/25 Date of Service: 02/10/25 Chief Complaint: diarrhea HPI Narrative BENITO HILL, is a 79 M who presents Chief Complaint: diarrhea Details: 79y/o male presents for consultation with complaints of diarrhea. Stool culture, O&P negative 09/13/2024. PMH significant for non-CAD related cardiomyopathy, SVT, VT, MVP, hyperlipidemia, hypertension, thoracic aortic aneurysm, with AICD and on Eliquis. He reports a long history of alternation constipation and diarrhea, reporting he was using Lactulose PRN until 2 months ago. Over the past 6 months he reports an increase in diarrhea and much worse the past 3 weeks. He is experiencing generalized abdominal discomfort and fecal urgency without incontinence. Stools are typically after meals and denies any bleeding. He complains of a 10-15lb weight loss over the past several months as well. - diarrhea and abdominal discomfort - the diarrhea has been ongoing for the past few years but much worse recently (3 weeks) - reports in the past he would have diarrhea that would last 3-4 days - but now the diarrhea is persisting - denies any fecal incontinence - he does experience urgency - waking up at HS with diarrhea on occasion - Bertram 6-7 - having 1-5x a day - stools are usually after meals - he is not diabetic - denies any h/o pancreatitis - denies any family h/o celiac disease - denies any family h/o esophageal, gastric or colon CA - stopped Lactulose 2 months ago - states he was taking this because he was constipated - reports stools can fluctuate between constipation and diarrhea for many years - started Jardiance & Entresto 6 months ago - denies any dietary changes - HB infrequent - denies dysphagia unless he tries to swallow a handful of pills - last colon 10 years ago - polyps - states eh had two colonoscopies which showed inflammation in the colon - does not recall any other specifics or treatment - weight loss of 10-15lbs over the past 6 months - Imodium does help - he lives alone - prepares his own meals - continues to drive - denies any falls in the past year - [facility] Medical History COPD (chronic obstructive pulmonary disease) Loss of hearing Cancer Anxiety Alcohol use Low iron Back pain History of IBS Former smoker History of echocardiogram History of stress test Essential tremor Chronic a-fib Essential hypertension Wears glasses Arthritis Thoracic aortic aneurysm Syncope MVP (mitral valve prolapse) Shortness of breath on exertion Cardiology follow-up encounter Pacemaker ICD (implantable cardioverter-defibrillator) in place Long-term use of high-risk medication Near syncope SVT (supraventricular tachycardia) Nonrheumatic mitral (valve) prolapse Premature ventricular contraction Colitis Depression Thoracic aortic aneurysm without rupture Cardiomyopathy Ventricular tachycardia Hyperlipidemia Hypertension Home Medications ?Medication ?Instructions ?Recorded ?Last Taken ?Type vit C 250 mg-vit E 200 unit-zinc 1 cap PO BID 07/30/23 Unknown History ox 12.5 qo-efmatg-dtvpyl-zeax capsule (ICaps AREDS2) simvastatin 20 mg tablet 20 mg PO QHS cholesterol #90 tabs 04/21/24 02/08/25 Rx mecobalamin (vitamin B12) 1,000 1,000 mcg PO DAILY 06/1702/09/25 History mcg chewable tablet amiodarone 200 mg tablet 100 mg (1/2 x 200 mg) PO KANDI LY Pt 07/30/24 02/10/25 Rx awaiting mail in RX, he is OUT of medication #30 tabs apixaban 5 mg tablet (Eliquis) 5 mg PO BID #180 tabs 0 07/30/24 02/07/25 Rx empagliflozin 25 mg tablet 25 mg PO DAILY 10/13/24 History (Jardiance) sacubitril 97 mg-valsartan 103 mg 1 tab PO BID 4 02/10/25 History tablet (Entresto) metoprolol succinate 25 mg 12.5 mg PO QHS 02/09/25 Unk nown History tablet,extended release 24 hr Allergy/AdvReac Type Severity Reaction Status Date / Time No Known Allergies Allergy Verified 02/09/25 11:21 Family History Father Heart disease Sister Heart disease Brother Heart disease Mother Pancreas (digestive gland) works poorly Surgical History Hx of colonoscopy History of total left knee replacement History of bilateral cataract extraction Hx of atrioventricular node ablation History of partial nephrectomy (07/02/18) Presence of cardiac defibrillator History of tonsillectomy Social History household members: none current occupational status: retired Smoking Status: Former smoker how long ago did patient quit smokin alcohol intake: never substance use type: does not use caffeine: Yes Type: coffee Number of servings: 2 frequency: 1-2 times per week ROS Constitutional Constitutional: Denies fatigue, fever(s), poor appetite, weight gain or weight loss Gastrointestinal Gastrointestinal: Denies belching, bloating, change in bowel habits, change in stool character, chewing difficulty, coffee ground emesis, constipation, cramping, diarrhea, dyspepsia, dysphagia, early satiety, excessive flatus, fecal incontinence, heartburn, hematemesis, hematochezia, hemorrhoids, loose stools, melena, nausea, odynophagia, rectal bleeding, tenesmus, vomiting or weight changes Vital Signs Vital Signs Vital Signs: 02/10/25 08:00 02/10/25 08:03 Temperature 97.2 F L Temperature Source Temporal Pulse Rate 70 Respiratory Rate 16 Respiratory Pattern Normal Blood Pressure 97/67 Blood Pressure Mean 77 Blood Pressure Source Monitor Blood Pressure Position Semi-Fowlers Blood Pressure Location Right Arm Pulse Ox 100 Oxygen Delivery Method Room Air Weight Weight: 147 lb 11.355 oz Body Mass Index (BMI) 18.4 Physical Exam Const alert, oriented x3, no apparent distress and healthy appearing General Appearance: cooperative GI normal to inspection, nondistended, normoactive bowel sounds, soft to palpation, non-tender and non-distended Percussion: normal to percussion Rectal Exam: deferred Assessment & Plan Assessment/Plan (1) Abdominal pain: QUALIFIERS: Abdominal location: generalized Qualified Code(s): R10.84 - Generalized abdominal pain (2) Weight loss: (3) Diarrhea: QUALIFIERS: Diarrhea type: unspecified type Qualified Code(s): R19.7 - Diarrhea, unspecified PLAN: Assessment and Plan Assessment and Plan (1) Diarrhea: Status: Acute Qualifiers: Diarrhea type: unspecified type Qualified Code(s): R19.7 - Diarrhea, un specified (2) Weight loss: Status: Acute (3) Abdominal pain: Status: Acute Qualifiers: Abdominal location: generalized Qualified Code(s): R10.84 - Generalized abdominal pain (4) Fecal urgency: Status: Acute (5) Heartburn: Status: Acute Orders: Orders Colonoscopy Today NERI Castro R19.7 - Diarrhea, unspecified, R63.4 - Abnormal weight loss ENTERIC PATHOGEN PANEL STOOL Today NERI Castro K58.9 - Irritable bowel syndrome, unspecified, R19.7 - Diarrhea, unspecified, R63.4 - Abnormal weight loss CDIFF (PCR) Today NERI Castro R19.7 - Diarrhea, unspecified, R63.4 - Abnormal weight loss Celiac Disease Profile Today NERI Castro R19.7 - Diarrhea, unspecified, R63.4 - Abnormal weight loss Pancreatic Elastase, Fecal Today NERI Castro R19.7 - Diarrhea, unspecified, R63.4 - Abnormal weight loss Calprotectin, Stool Today NERI Castro R19.7 - Diarrhea, unspecified, R63.4 - Abnormal weight loss Giardia Lamblia, Stool EIA Today NERI Castro R19.7 - Diarrhea, unspecified, R63.4 - Abnormal weight loss Ova and Parasites [id number] Today NERI Castro K58.9 - Irritable bowel syndrome, unspecified, R19.7 - Diarrhea, unspecified, R63.4 - Abnormal weight loss Allergen, Food Profile 14 Today NERI Castro R19.7 - Diarrhea, unspecified, R63.4 - Abnormal weight loss CRP Today NERI Castro R19.7 - Diarrhea, unspecified, R63.4 - Abnormal weight loss Abd Inc Decub and/or Erect Today NERI Castro R19.7 - Diarrhea, unspecified, R63.4 - Abnormal weight loss H. PYLORI STOOL AG Today NERI Castro R10.9 - Unspecified abdominal pain, R12 - Heartburn, R15.2 - Fecal urgency, R19.7 - Diarrhea, unspecified, R63.4 - Abnormal weight loss Medications: Changed From empagliflozin (Jardiance) 12.5 mg (1/2 x 25 mg) PO DAILY 14 tabs 0RF To empagliflozin (Jardiance) 25 mg PO DAILY Rashmi Fatima CORRECTIONS SPECIALIST, CORRECTIONS SPECIALIST-C Discontinued lactulose Discontinued Reason: Pt no longer taking 10 grams PO BID PRN Plan 79y/o male presents for consultation with complaints of diarrhea. Stool culture, O&P negative 09/13/2024. PMH significant for non-CAD related cardiomyopathy, SVT, VT, MVP, hyperlipidemia, hypertension, thoracic aortic aneurysm, with AICD and on Eliquis. He reports a long history of alternation constipation and diarrhea, reporting he was using Lactulose PRN until 2 months ago. Over the past 6 months he reports an increase in diarrhea and much worse the past 3 weeks. He is experiencing generalized abdominal discomfort and fecal urgency without incontinence. Stools are typically after meals and denies any bleeding. He complains of a 10-15lb weight loss over the past several months as well. I have ordered stool testing, labs and scheduled him for a colonoscopy pending cardiac clearance with approval to hold Eliquis 2 days prior to procedure. 1. Complete abdominal x-ray today to r/o overflow diarrhea 2. Start Metamucil 2tsp once a day in ounces of water after breakfast every morning 3. Complete labs (CRP, Food allergen panel, Celiac Panel) 4. Complete stool testing (GIPCR, Culture, O&P, C. Diff) 5. Colonoscopy - obtain cardiac clearance and approval to hold Eliquis Patient Instructions: 1. Metamucil 2tsp once a day in ounces of water after breakfast every morning
--- NOTE | 2025-02-10 08:45 | COLBX_PTH ---
PATIENT: BENITO HILL LOC: EN U#:[id number] AGE/SX: 79/M ROOM: RE02/10/[address]: Dr. Juan Diego Noriega DO : 1945 BED: DIS: 02/10/2025 SPEC #: [id number] RECD: 02/10/25 13:10 STATUS: GRACE ORIANA #: [id number] TRINA: 02/10/25 08:[address]: Juan Diego Noriega DEPT: SURGICAL PATHOLOGY RECD BY: Fernando Kovacs ENTERED: 02/10/25 13:10 SP TYPE: COLON BX URTH DR: Dr. Helen Lainez MD Tissues: A - COLON BIOPSY B - Ileum, NOS C - COLON BIOPSY Procedures: Surgery Specimen Level IV HEADER OPERATION: Colonoscopy with polyp biopsy PRE-OP DIAGNOSIS: Abdominal pain, weight loss, diarrhea TISSUE SUBMITTED: A- Sigmoid polyp biopsy, B- Terminal ileum, C- Random colon biopsy MICROSCOPIC DIAGNOSIS A. Sigmoid polyp, biopsy: Tubular adenoma B. Terminal ileum, biopsy:Small intestinal mucosa with no histopathologic abnormalityC. Random colon, biopsy: Colonic mucosa with no histopathologic abnormality; no definitive cryptitis or crypt abscessesNeida boyd MD, 02/18/2025 MICROSCOPIC DESCRIPTION Slides are reviewed. GROSS DESCRIPTION A. Received in fixative is one container labeled with the patient's name and designated Sigmoid polyp biopsy. The specimen consists of one irregular fragment of light merida soft tissue that measures 0.4 x 0.3 x 0.2 cm. The specimen is totally submitted in one cassette. B. Received in fixative is one container labeled with the patient's name and designated Terminal ileum biopsy. The specimen consists of two irregular fragments of light merida soft tissue that in aggregate measure 0.8 x 0.3 x 0.2 cm. The specimen is totally submitted in one cassette. C. Received in fixative is one container labeled with the patient's name and designated Random colon biopsy. The specimen consists of multiple irregular fragments of light merida soft tissue that in aggregate measure 2.5 x 0.2 x 0.2 cm. The specimen is totally submitted in one cassette. MS/mr 02/10/2025 CPT:60816e9, TC:1
--- NOTE | 2025-02-10 08:55 | PCM.POST.ANE ---
Anesthesia: Postop Eval I Current Vital Signs Temperature: 97.0 F Pulse Rate: 73 Blood Pressure: 74/47 Respiratory Rate: 20 Pulse Ox: 99 Oxygen Delivery Method: Room Air Assessment Airway patent: Yes Spontaneous unlabored respirations: Yes Mental status: Awake and Calm nausea: No Vomiting: No Anesthesia Complication: No Fluid Hydration Crystalloid volume administer (ml): 20 Total IV fluid infused: 20 Progress Note Anesthesia document: Postop Eval 1 completed: Yes
--- NOTE | 2025-02-10 09:21 | OP.COLON_ITS ---
Patient Name: Tone Whittington Procedure Date: 02/10/2025 8:36 AM Date of : 1945 Age: 79 Procedure: Colonoscopy Indications: Chronic diarrhea Providers: Juan Diego Noriega DO Referring MD: Helen Lainez Medicines: Monitored Anesthesia Care Patient Profile: This is a 79 year old male. Refer to note in patient chart for documentation of history and physical. Last Colonoscopy: date unknown. Unable to locate last colonoscopy report. Complications: No immediate complications. Procedure: Pre-Anesthesia Assessment: - Prior to the procedure, a History and Physical was performed, and patient medications and allergies were reviewed. The patient is competent. The risks and benefits of the procedure and the sedation options and risks were discussed with the patient. All questions were answered and informed consent was obtained. Patient identification and proposed procedure were verified by the physician in the pre-procedure area. Mental Status Examination: alert and oriented. Airway Examination: normal oropharyngeal airway and neck mobility. Respiratory Examination: clear to auscultation. CV Examination: normal. ASA Grade Assessment: II - A patient with mild systemic disease. After reviewing the risks and benefits, the patient was deemed in satisfactory condition to undergo the procedure. The anesthesia plan was to use monitored anesthesia care (MAC). Immediately prior to administration of medications, the patient was re-assessed for adequacy to receive sedatives. The heart rate, respiratory rate, oxygen saturations, blood pressure, adequacy of pulmonary ventilation, and response to care were monitored throughout the procedure. The physical status of the patient was re-assessed after the procedure. After I obtained informed consent, the scope was passed under direct vision. Throughout the procedure, the patient's blood pressure, pulse, and oxygen saturations were monitored continuously. The Colonoscope was introduced through the anus and advanced to the terminal ileum. The colonoscopy was performed without difficulty. The patient tolerated the procedure well. The quality of the bowel preparation was adequate. Scope In: 8:49:35 AM Scope Withdrawal Time 0 hours 11 minutes 19 seconds Scope Out: 9:10:00 AM Total Procedure Duration Time 0 hours 20 minutes 25 seconds Findings: The perianal and digital rectal examinations were normal. Multiple small-mouthed diverticula were found in the recto-sigmoid colon, sigmoid colon and descending colon. A 5 mm polyp was found in the sigmoid colon. The polyp was sessile. The polyp was removed with a jumbo cold forceps. Resection and retrieval were complete. Verification of patient identification for the specimen was done. Estimated blood loss was minimal. The colon (entire examined portion) appeared normal. Biopsies were taken with a cold forceps for histology. Verification of patient identification for the specimen was done. Estimated blood loss was minimal. The terminal ileum appeared normal. Biopsies were taken with a cold forceps for histology. Verification of patient identification for the specimen was done. Estimated blood loss was minimal. Impression: - No specimens collected. Recommendation: - Discharge patient to home. - Resume previous diet. - Continue present medications. - Await pathology results. - Repeat colonoscopy in 5 years for surveillance. - Return to GI office. Procedure Code(s): --- Professional --- 34038, Colonoscopy, flexible; with biopsy, single or multiple CPT copyright 2021 [employer]. All rights reserved. The codes documented in this report are preliminary and upon edge inker uppers review may be revised to meet current compliance requirements. Juan Diego Noriega DO 02/10/2025 9:20:42 AM This report has been signed electronically. Number of Addenda: 0 Note Initiated On: 02/10/2025 8:36 AM
--- NOTE | 2025-02-10 09:21 | OP.CCLET_ITS ---
02/10/2025 Helen Lainez [place] [id number] [place] [address] Re : Colonoscopy procedure for Tone Whittington Dear Dr. Lainez This procedure was performed on Monday, February 10, 2025. My impressions and recommendations are as follows: Impressions : - No specimens collected. Recommendations : - Discharge patient to home. - Resume previous diet. - Continue present medications. - Await pathology results. - Repeat colonoscopy in 5 years for surveillance. - Return to GI office. My findings are described in the full procedure note, which is enclosed. If I can be of further assistance, please feel free to contact me at . Sincerely, Juan Diego Noriega, 02/10/2025 9:20:42 AM This report has been signed electronically.
--- NOTE | 2025-02-10 13:30 | POSTOPAN2_ITS ---
Anesthesia Postop Eval I Sum Postop Eval Completion status Anesthesia document: Postop Eval 1 completed: Yes Anesthesia Postop Eval I Summary Anesthesia Postop Eval I Summary: Anesthesia Postop Eval I: Assessment Summary Airway patent Yes 02/10/25 09:16 [email or web address] Spontaneous unlabored Yes 02/10/25 09:16 [email or web address] respirations Mental status Awake,Calm 02/10/25 09:16 [email or web address] nausea No 02/10/25 09:16 [email or web address] Vomiting No 02/10/25 09:16 [email or web address] Anesthesia Postop Eval I: Fluid Summary Crystalloid volume administer 20 02/10/25 09:16 [email or web address] (ml) Colloids volume administered ( ml) Blood Product volume administered (ml) Total IV fluid infused 20 02/10/25 09:16 [email or web address] Anesthesia Postop Eval I: Summary Notes Anesthesia Complication No 02/10/25 09:16 [email or web address] Anesthesia Complication Comment: Post-operative progress note Anesthesia: Postop Eval II Evaluation Mental status: Awake Pain Level: 0 nausea: No Vomiting: No
--- NOTE | 2025-02-10 13:30 | PCM.POSTANE2 ---
Anesthesia Postop Eval I Sum Postop Eval Completion status Anesthesia document: Postop Eval 1 completed: Yes Anesthesia Postop Eval I Summary Anesthesia Postop Eval I Summary: Anesthesia Postop Eval I: Assessment Summary Airway patent Yes 02/10/25 09:16 [email or web address] Spontaneous unlabored Yes 02/10/25 09:16 [email or web address] respirations Mental status Awake,Calm 02/10/25 09:16 [email or web address] nausea No 02/10/25 09:16 [email or web address] Vomiting No 02/10/25 09:16 [email or web address] Anesthesia Postop Eval I: Fluid Summary Crystalloid volume administer 20 02/10/25 09:16 [email or web address] (ml) Colloids volume administered ( ml) Blood Product volume administered (ml) Total IV fluid infused 20 02/10/25 09:16 [email or web address] Anesthesia Postop Eval I: Summary Notes Anesthesia Complication No 02/10/25 09:16 [email or web address] Anesthesia Complication Comment: Post-operative progress note Anesthesia: Postop Eval II Evaluation Mental status: Awake Pain Level: 0 nausea: No Vomiting: No
== END 2025-02-10 09:59 | disposition home or self-care (01) ==
LOC: EN 07:25 → AC 07:28
PROVIDERS: PCP Family Medicine; Referring Provider Family Medicine; Visit Provider Internal Medicine Gastroenterology
PROC: 0DJD8ZZ Inspection of Lower Intestinal Tract, Via Natural or Artificial Opening Endoscopic (ICD-10-PCS; CPT 45378; principal; 2025-02-10 08:40)
DX: R19.7 Diarrhea, unspecified (principal); J44.9 Chronic obstructive pulmonary disease, unspecified; R10.84 Generalized abdominal pain; Z87.891 Personal history of nicotine dependence; E78.5 Hyperlipidemia, unspecified; Z79.01 Long term (current) use of anticoagulants; I10 Essential (primary) hypertension; R63.4 Abnormal weight loss; K59.00 Constipation, unspecified; Z95.810 Presence of automatic (implantable) cardiac defibrillator; Z68.1 Body mass index [BMI] 19.9 or less, adult; Z86.0100 Personal history of colon polyps, unspecified
CPT/HCPCS: 45380; 88305; A4216; J2405

== ENCOUNTER → 2025-03-15 | Outpatient (CLI) | payer MEDICARE, SELFPAY ==
--- NOTE | 2025-03-15 07:46 | US_ITS ---
PROCEDURE: ABDOMEN LIMITED 03/15/2025 REASON FOR EXAM: BLOATING, ABD PAIN COMPARISON: None FINDINGS: Liver: Grossly normal size and echotexture. Gallbladder: No stones sludge wall thickening or tenderness. Common bile duct: Normal measuring 5 mm.. Pancreas: Visualized portions are sonographically unremarkable. Other: Visualized portions of the right kidney are unremarkable. No right upper quadrant ascites. US/Abdomen Limited IMPRESSION: NORMAL RIGHT UPPER QUADRANT ULTRASOUND. Reading Location: [facility] [place]
== END | disposition home or self-care (01) ==
PROVIDERS: PCP Family Medicine; Referring Provider Nurse Practitioner Acute Care; Visit Provider Nurse Practitioner Acute Care
DX: R12 Heartburn (principal); R14.0 Abdominal distension (gaseous); R10.84 Generalized abdominal pain
CPT/HCPCS: 76705

== ENCOUNTER → 2025-04-23 | Outpatient (CLI) | payer MEDICARE, SELFPAY ==
--- NOTE | 2025-04-23 13:10 | CT_ITS ---
PROCEDURE: ABDOMEN/PELVIS WITH CONTRAST 04/23/2025 REASON FOR EXAM: ABDOMINAL PAIN TECHNIQUE: Abdomen and pelvis CT with intravenous contrast. Coronal and Sagittal reconstruction series were provided. PATIENT PREPARATION: Per protocol ORAL CONTRAST TYPE: None. AMOUNT: mL CONTRAST: 100 mL of Isovue 370 One or more dose reduction techniques were used (e.g., Automated exposure control, adjustment of the mA and/or kV according to patient size, use of iterative reconstruction technique. RADIATION DOSE SUMMARY: DLP: 483 mGycm COMPARISON: FINDINGS: Stable reticular density within the right lower lobe, grossly unchanged measuring approximately 9.5 x 6.3 cm, which may reflect fibrosis versus spiculated lesion. The liver, spleen, pancreas, both kidneys, and both adrenal glands demonstrate no acute findings. The gallbladder is unremarkable. The stomach is distended with residue. Extensive atherosclerotic changes of the abdominal aorta with distal abdominal aorta measuring up to 2.2 cm. There is no free air, free fluid or intestinal obstruction. The appendix is not clearly identified, although there are no secondary signs of appendicitis. Scattered small bowel and colonic inflammation may reflect enterocolitis. No bowel obstruction. Extensive colonic diverticulosis without acute diverticulitis. The pelvic structures are intact. Prostatomegaly to 5.1 cm in transverse dimension. Mild thickening of the urinary bladder wall which may reflect cystitis; consider correlation with urinalysis. Extensive multilevel lumbar degenerative changes. No acute fractures. CT/Abdomen/Pelvis WITH Contrast IMPRESSION: Scattered small bowel and colonic inflammation may reflect enterocolitis. No lisa wel obstruction. Extensive colonic diverticulosis without acute diverticulitis. Mild thickening of the urinary bladder wall which may reflect cystitis; conside r correlation with urinalysis. Prostatomegaly to 5.1 cm in transverse dimension. Reading Location: [id number]
== END | disposition home or self-care (01) ==
LOC: CT 12:55
PROVIDERS: PCP Family Medicine; Referring Provider Nurse Practitioner Acute Care; Visit Provider Nurse Practitioner Acute Care
DX: R10.33 Periumbilical pain (principal); R14.0 Abdominal distension (gaseous)
CPT/HCPCS: 74177; Q9967; A4216

== ENCOUNTER → 2025-05-03 | Outpatient (CLI) | payer MEDICARE, SELFPAY ==
[2025-05-03 12:00] LABS: Free T3 2.8 pg/mL (2.18-3.98)
== END | disposition home or self-care (01) ==
LOC: LAB 10:57
PROVIDERS: PCP Family Medicine; Referring Provider Nurse Practitioner Gerontology; Visit Provider Nurse Practitioner Gerontology
DX: Z79.899 Other long term (current) drug therapy (principal)
CPT/HCPCS: 36415; 84439; 84443; 84481

== ENCOUNTER → 2025-05-18 | Outpatient (CLI) | payer MEDICARE, SELFPAY ==
[2025-05-18 12:04] LABS: Absolute Lymphocyte Count 1.17 X10^3/uL (0.83-4.51); Absolute Neutrophil Count 2.8 X10^3/uL (2.0-7.7); Basophil# 0.06 X10^3/uL; Basophil% 1.3 % (0-1); Eosinophils% 4.2 % (0-5); Hematocrit 45.4 % (40-54); Hemoglobin 14.6 g/dL (13.0-16.5); Lymphocyte # 1.17 X10^3/ul (0.83-4.51); Lymphocyte % 24.8 % (19-41); Mean Corp Hgb Conc 32.2 g/dL (32-36); Mean Corpuscular Hgb 29.8 pg (27.0-32.0); Mean Corpuscular Volume 92.7 fL (80-94); Mean Platelet Vol. 10.8 fl (6.2-12.0); Monocyte# 0.49 X10^3/uL; Monocyte% 10.4 % (0-10); NRBC Flagged by Analyzer 0 % (0-5); Neutrophil # 2.79 X10^3/uL (2.7-7.7); Neutrophil % 59.1 % (47-70); POSITIVE COUNT YES; Platelet Count 99 K/mm3 (150-450); RBC Distribution Width CV 14.4 % (11.6-14.6); White Blood Count 4.7 K/mm3 (4.4-11.0)
[2025-05-18 12:10] LABS: Differential Indicated SCAN CRITERIA MET
[2025-05-18 13:00] LABS: CRP < 3.00 mg/L (0.0-3.0)
[2025-05-19 14:08] LABS: Immunoglobulin A 338 mg/dL (61-437); t-Transglutaminase IgA <2 U/mL (0-3)
== END | disposition home or self-care (01) ==
LOC: LAB 10:13
PROVIDERS: PCP Family Medicine; Referring Provider Nurse Practitioner Acute Care; Visit Provider Nurse Practitioner Acute Care
DX: R10.33 Periumbilical pain (principal); R15.2 Fecal urgency; R19.7 Diarrhea, unspecified; R14.0 Abdominal distension (gaseous)
CPT/HCPCS: 36415; 82784; 83516; 85025; 86140

== ENCOUNTER → 2025-05-19 | Outpatient (CLI) | payer MEDICARE, SELFPAY ==
--- OUTSIDE RECORDS SUMMARY | 2025-05-19 07:33 | XMS RPT_ITS | CCD ---
Author Organization [facility] CliniSyfl Care Team Providers Care [address] Justice Name Role Phone Dr. Sree Ash Chi Primary Care Provider [phone] Mihir, Dr. Sree Jung Referring Provider Roof [employer]ER, [employer]OM[employer] RE[employer]ER-C Jori Haney Attending Provider Roof [employer], [employer] RE[employer]ER-C Jori Haney Referring Provider Roof [employer], [employer] RE[employer]-C Jori Haney Other Provider Dr. Anupam Reece Attending Provider [phone] Dr. Anupam Reece Referring Provider [phone] Dr. Clarke Roberts Attending Provider Dr. Roman Dozier Referring Provider [phone] Mihir, Dr. Sree Jung Primary Care Provider Dr. Anupam Reece Attending Provider [phone] Mihir, Dr. Sree Jung Referring Provider Poppy Colón Attending Provider Unavailable NERI Fatima NP Attending Provider Mihir, Dr. Sree Jung Primary Care Provider Mihir, Dr. Sree Jung Primary Care Provider Mihir, Dr. Sree Jung Referring Provider NERI Fatima NP Attending Provider Dr. Anupam Reece Attending Provider [phone] Dr. Anupam Reece Referring Provider [phone] Mihir, Dr. Sree Jung Primary Care Provider Mihir, Dr. Sree Jung Primary Care Provider Mihir, Dr. Sree Jung Referring Provider Dr. Anupam Reece Attending Provider [phone] Chevy, Dr. Bo Referring Provider [phone] Chevy, Dr. Bo Other Provider [phone] Shabbir Pelletier Attending Provider Mihir, Dr. Sree Jung Primary Care Provider Armando, Dr. Mir Attending Provider [phone] Armando, Dr. Mir Referring Provider [phone] Mihir, Dr. Sree Jung Referring Provider Poppy Colón Attending Provider Unavailable Kushal [employer]ER, AUTOMAT[employer] D[employer]ER [employer] REAMER-C Rashmi Attending Provider Irwin Walton MD Unavailable Jori Lieberman DO Primary Care Provider Mihir, Sree Jung Primary Care Provider Mihir, Dr. Sree Jung Primary Care Provider Mihir, Dr. Sree Jung Referring Provider Poppy Colón Attending Provider Unavailable Kushal CURRIE, [employer]-C Rashmi Attending Provider Armando, Dr. Mir Attending Provider [phone] Armando, Dr. Mir Referring Provider [phone] Mihir, Dr. Sere Jung Primary Care Provider Mihir, Dr. Sree Jung Referring Provider Dr. Jimbo Romo Attending Provider Unavailable Kushal CURRIE, [employer]-C Rashmi Attending Provider Mihir, Dr. Sree Jung Primary Care Provider Mihir, Dr. Sree Jung Referring Provider Dr. Jimbo Romo Attending Provider Unavailable Kushal [employer] REAMER, AUTOMATIC D[employer]ER [employer] REAMER-C Rashmi Attending Provider Dr. Helen Lainez Primary Care Provider Dr. Helen Lainez Referring Provider [phone] Poppy Colón Attending Provider Unavailable Dr. Helen Lainez Primary Care Provider [phone] Dr. Clarke Roberts Attending Provider [phone] Clarke Roberts Referring Provider [phone] Efrain Mercado Attending Provider Kushal [employer]AMER, AUTOMAT[employer] RE[employer]ER-C Rashmi Referring Provider Anton GRAVES, Irwin James Unavailable Helen Lainez MD Primary Care Provider Helen Lainez MD Primary Care Provider MARCO JAIME Admitting Unavailable MARCO JAIME Attending Unavailable MARCO JAIME Referring Unavailable MIEDEL, HELEN E Primary Care Unavailable MIEDEL, HELEN E Primary Care Unavailable DENICE MARRUFO Attending Unavailable MIEDEL, HELEN E Primary Care Unavailable MARCO JAIME Attending Unavailable CLARKE ROBERTS Referring Unavailable MIEDRADHA HELEN E Primary Care Unavailable MIHIR, SREE CHI Primary Care Unavailable MARCO JAIME Attending Unavailable MIHIR, SREE CHI Primary Care Unavailable Dr. Helen Lainez MD Primary Care Provider Dr. Helen Lainez MD Referring Provider [phone] Wan [employer]ER-CYoko Attending Provider Wan [employer]OMAT[employer] D[employer]LLER [employer] REAMER-CYoko Referring Provider Dr. Rakesh Granados MD Attending Provider Dr. Liborio Abarca MD Attending Provider Dr. Liborio Abarca MD Emergency Provider Dr. Clarke Roberts MD Attending Provider [phone] Dr. Clarke Roberts MD Referring Provider [phone] Dr. Efrain Giron DO Emergency Provider Dr. Juan Diego Noriega DO Attending Provider Leann NG, Dr. Adamson Other Provider [phone] Fatou GRAVES, Dr. Cervantes Primary Care Provider Dr. Efrain Giron DO Attending Provider Dr. Helen Lainez MD Referring Provider Vishal GRAVES, Dr. Arriaga Attending Provider Vishal GRAVES, Dr. Arriaga Referring Provider Wan [employer]AT[employer] REAMER-C, Ykoo Attending Provider Wan AUTOMAT[employer] D[employer]ER [employer] REAMER-C, Yoko Referring Provider Fatou GRAVES, Dr. Cervantes Primary Care Provider Armando GRAVES, Dr. Mir Attending Provider [phone] Poppy Colón Attending Provider Unavailable Kushal CURRIE-CRashmi Attending Provider [phone] Kushal [employer] RE[employer]ER-C, Rashmi Referring Provider [phone] Miedel, Helen Primary Care Unavailable Yoko Blas Referring Unavailable Yoko Blas Attending Unavailable Miedel, Helen Primary Care Unavailable Liborio Abarca Attending Unavailable Miedel, Helen Attending Unavailable Miedel, Helen Primary Care Unavailable Miedel, Helen Referring Unavailable Miedel, Helen Attending Unavailable Miedel, Helen Primary Care Unavailable Miedel, Helen Referring Unavailable Miedel, Helen Primary Care Unavailable Yoko Blas Attending Unavailable Miedel, Helen Referring Unavailable Miedel, Helen Primary Care Unavailable Poppy Colón Attending Unavailable Miedel, Helen Primary Care Unavailable Yoko Blas Attending Unavailable Caroline Blasnifer Referring Unavailable Rashmi Fatima NP Attending Unavailable Miedel, Helen Referring Unavailable Miedel, Helen Primary Care Unavailable Miedel, Helen Primary Care Unavailable Clarke Roberts Attending Unavailable Clarke Roberts Referring Unavailable Miedel, Helen Referring Unavailable Miedel, Helen Primary Care Unavailable Rakesh Granados Attending Unavailable Miedel, Helen Referring Unavailable Miedel, Helen Primary Care Unavailable Kushal [employer]ER [employer] REAMER, Rashmi Attending Unavailable Miedel, Helen Primary Care Unavailable Armando, [place] Attending Unavailable Armando, [place] Referring Unavailable Miedel, Helen Referring Unavailable Miedel, [place] Primary Care Unavailable Yoko Blas Attending Unavailable Predel, [place] Primary Care Unavailable Efrain Giron Attending Unavailable Miedel, [place] Primary Care Unavailable Armando [place] Attending Unavailable Armando, [place] Referring Unavailable Miedel, [place] Primary Care Unavailable Armando, [place] Attending Unavailable Miedel, [place] Primary Care Unavailable Yoko Blas Referring Unavailable Yoko Blas Attending Unavailable Mied, Helen Attending Unavailable Predel, [place] Primary Care Unavailable Miedel, Helen Referring Unavailable Miedel, [place] Primary Care Unavailable Juan Diego Noriega Attending Unavailable [facility] Primary Care Unavailable Miedel, Helen Referring Unavailable Juan Diego Noriega Attending Unavailable Mied, [place] Primary Care Unavailable Yoko Blas Referring Unavailable Yoko Blas Attending Unavailable Miedel, [place] Primary Care Unavailable Kushal [employer]OMAT[employer]ER [employer] REAMER, Rashmi Referring Unavailable Kushal [employer]OMATIC DRILLER AND REAMER, Rashmi Attending Unavailable Miedel, Helen Primary Care Unavailable Kushal [employer]AT[employer]ER [employer] REAMER, Rashmi Consulting Unavailable Sander Pittman Attending Unavailable Sander Pittman Referring Unavailable Kushal [employer]OMAT[employer] D[employer]ER [employer] REAMER, Rashmi Attending Unavailable Predel, Helen Primary Care Unavailable Kushal [employer]OMATIC DRI[employer]ER AND REAMER, Rashmi Referring Unavailable Miedel, Helen Primary Care Unavailable Armando, [place] Attending Unavailable Armando, [place] Referring Unavailable Miedel, Helen Referring Unavailable Miedel, Helen Primary Care Unavailable Yoko Blas Attending Unavailable Predel, Helen Referring Unavailable Miedel, Helen Primary Care Unavailable Yoko Blas Attending Unavailable Mied, Helen Primary Care Unavailable Bart Rodgers Attending Unavailable Bart Rodgers Referring Unavailable Miedel, Helen Primary Care Unavailable Kushal [employer]OMAT[employer] D[employer]ER AND REAMER, Rashmi Attending Unavailable Miedel, Helen Primary Care Unavailable Miedel, Helen Referring Unavailable Friend, Juan Diego Consulting Unavailable Juan Diego Noriega Attending Unavailable Pred, [place] Primary Care Unavailable Armando [place] Attending Unavailable Rashmi Fatima NP Referring Unavailable Rashmi Fatima NP Consulting Unavailable Rashmi Fatima NP Referring Unavailable Helen Lainez Primary Care Unavailable Rashmi Fatima NP Attending Unavailable Medications Current Medications Medication Drug Class(es) Dates Sig (Normalized) Sig (Original) Albuterol Sulfate (20 sources) beta2-Adrenergic Agonist Start: 02-19-2022 take 1 puff(s) by inhalation every four hours as needed Albuterol Sulfate (Ventolin Hfa) 90 mcg/actuation Hfa Aerosol Inhaler Active 2 PUFF INHALATION EVERY 4 HOURS NEEDED 0 February 19, 2022 7:11pm Start: 02-19-2022 End: 07-30-2024 Albuterol Sulfate (Ventolin Hfa) 90 mcg/actuation Hfa Aerosol Inhaler Discontinued 2 NMA INHALATION EVERY 4 HOURS NEEDED as needed for SOB &/OR WHEEZING 0 February 19, 2022 12:00am July 30, 2024 9:53am Start: 02-19-2022 take 1 puff(s) by in halation every four hours as needed Albuterol Sulfate (Ventolin Hfa) 90 mcg/actuation Hfa Aerosol Inhaler Active 2 PUFF INHALATION EVERY 4 HOURS NEEDED 0 February 19, 2022 12:00am Start: 01-25-2022 End: 04-16-2022 Albuterol Sulfate Discontinu ed 1 INH INHALATION EVERY 6 HOURS January 25, 2022 12:49pm April 16, 2022 3:15pm Start: 01-25-2022 Albuterol Sulf ate Active 1 INH INHALATION EVERY 6 HOURS January 25, 2022 12:49pm Start: 01-25-2022 End: 04-16-2022 Albuterol Sulfate 90 mcg/act uation Hfa Aerosol Inhaler Discontinued 1 NMA INHALATION EVERY 6 HOURS as needed for SOB January 25, 2022 1:00am April 16, 2022 3:15pm Start: 01-25-2022 End: 04-16-2022 Albuterol Sulfate Discontinu ed 1 INH INHALATION EVERY 6 HOURS January 25, 2022 1:00am April 16, 2022 3:15pm amiodarone hydrochloride 200 mg oral tablet (20 sources) Antiarrhythmic Start: 07-30-2024 End: 02-16-2025 Amiodarone 200 mg tablet Active 100 mg PO DAILY February 16, 2025 3:29pm heart rate Start: 07-30-2023 End: 07-30-2024 take 1 tablet by mouth once daily Amiodarone 200 mg tablet Discontinued 200 mg PO DAILY December 30, 2023 4:30pm July 30, 2024 10:12am heart rate Start: 07-15-2020 End: 07-30-2023 Amiodarone 200 mg tablet Discontinued 100 mg PO DAILY 45 March 20, 2023 3:32pm July 30, 2023 4:48pm heart rate Start: 07-15-2020 End: 07-30-2023 take 100 mg by mouth once daily Amiodarone Discontinue d 100 MG PO DAILY March 20, 2023 3:32pm July 30, 2023 4:48pm heart rate Start: 09-25-2019 End: 07-15-2020 take 1 tablet by mouth once daily Amiodarone 200 MG tablet Discontinued 200 mg PO DAILY September 25, 2019 7:29am July 15, 2020 9:19am heart rate Start: 02-17-2018 End: 09-25-2019 Amiodarone 200 mg tablet Discontinued 100 mg PO DAILY 45 August 03, 2019 12:37pm September 25, 2019 7:29am Start: 02-17-2018 End: 09-25-2019 take 100 mg by mouth once daily Amiodarone Discontinue d 100 MG PO DAILY 45 August 03, 2019 12:37pm September 25, 2019 7:29am Start: 03-06-2017 End: 02-17-2018 take 1 tablet by mouth once daily Amiodarone 200 MG tablet Discontinued 200 mg PO DAILY 60 March 19, 2017 12:00am February 17, 2018 1:21pm Start: 03-06-2017 End: 02-17-2018 take 1 tablet by mouth twice daily Amiodarone 200 MG tablet Discontinued 200 mg PO TWICE A DAY March 12, 2017 12:00am February 17, 2018 1:20pm Start: 03-06-2017 End: 02-17-2018 take 1 tablet by mouth three times daily Amiodarone 200 MG tablet Discontinued 200 mg PO THREE TIMES A DAY March 06, 2017 12:00am February 17, 2018 1:19pm Comment on above: Take 100 mg by mouth once daily. Take 200 mg by mouth once daily. cholecalciferol 1.25 mg oral capsule (20 sources) Vitamin D Start: 05-03-20 take 1 capsule by mouth every week Cholecalciferol (Vitamin D3) 1,250 mcg (50,000 unit) capsule Active 1250 ug PO EVERY WEEK May 03, 2025 12:00am Start: 07-30-2024 End: 11-06-2024 take 1 capsule by mouth every month Cholecalciferol (Vitamin D3) 1,250 mcg (50,000 unit) capsule Discontinued 1250 ug PO EVERY MONTH July 30, 2024 10:03am November 06, 2024 9:29am Start: 05-01-2024 End: 07-30-2024 take 1 capsule by mouth every week Cholecalciferol (Vitamin D3) 1,250 mcg (50,000 unit) capsule Discontinued 1250 ug PO EVERY WEEK May 01, 2024 12:00am July 30, 2024 10:03am Start: 12-01-2021 End: 07-30-2023 take 1 capsule by mouth once daily Cholecalciferol (Vitamin D3) 25 mcg (1,000 unit) capsule Discontinued 25 ug PO DAILY February 10, 2022 4:14pm July 30, 2023 1:23pm loperamide hydrochloride 2 mg oral capsule (20 sources) Opioid Agonist Start: 03-08-2025 take 1 capsule by mouth every other day Loperamide (Imodium A-D) 2 mg capsule Active 2 mg PO .QOD March 08, 2025 12:00am Start: 03-06-2017 End: 02-17-2018 take 1 capsule by mouth every four hours as needed for diarrhea Loperamide 2 MG capsule Discontinued 2 mg PO EVERY 4 HOURS NEEDED as needed for Diarrhea March 06, 2017 12:00am February 17, 2018 1:21pm mecobalamin 1 mg chewable tablet (10 sources) Start: 05-01-2024 take 1 tablet by mouth once daily Mecobalamin (Vitamin B12) 1,000 mcg tablet,chewable Active 1000 ug PO DAILY May 01, 2024 12:00am 24 hr metoprolol succinate 25 mg extended release oral tablet (20 sources) beta-Adrenergi c Merrick Start: 02-09-2025 take 2 tablets by mouth every twenty-four hours at bedtime Metoprolol Succinate 25 mg tablet extended release 24 hr Active 12.5 mg PO AT BEDTIME February 09, 2025 12:00am Start: 07-30-2023 End: 02-09-2025 take 2 tablets by mouth once daily Metoprolol Succinate 25 mg tablet extended release 24 hr Discontinued 12.5 mg PO DAILY September 21, 2024 9:31am February 09, 2025 11:23am Start: 07-30-2023 End: 10-15-2023 take 12.5 mg by mouth once daily Metoprolol Succinate Active 12.5 MG PO DAILY October 15, 2023 10:50am Start: 03-09-2014 End: 07-15-2020 Metoprolol Tartrate 25 mg ta blet Discontinued 12.5 mg PO TWICE A DAY August 03, 2019 9:17am July 15, 2020 9:19am Start: 03-09-2014 End: 07-15-2020 take 12.5 mg by mouth twice daily Metoprolol Tartrate Discontinued 12.5 MG PO TWICE A DAY August 03, 2019 9:17am July 15, 2020 9:19am Comment on above: Take 12.5 mg by mout h once daily. sacubitril 97 mg / valsartan 103 mg oral tablet (20 sources) Angiotensin 2 Receptor Merrick Start: 05-03-2025 Sacubitril-Valsartan (Entresto) 97-103 mg tablet Active 0.5 {tbl} PO TWICE A DAY May 03, 2025 10:48am Start: 10-13-2024 End: 05-03-2025 Sacubitril-Valsartan (Entres to) 97-103 mg tablet Discontinued 1 {tbl} PO TWICE A DAY October 13, 2024 1:00am May 03, 2025 10:49am Start: 10-13-2024 Sacubitril-Kaitlyn sartan (Entresto) 97-103 mg tablet Active 1 {tbl} PO TWICE A DAY October 13, 2024 1:00am Start: 05-01-2024 End: 10-13-2024 Sacubitril-Valsartan (Entres to) 97-103 mg tablet Discontinued 1 {tbl} PO TWICE A DAY July 10, 2024 11:26am October 13, 2024 8:14am Start: 05-09-2023 End: 05-01-2024 Sacubitril-Valsartan (Entres to) 24-26 mg tablet Discontinued 1 {tbl} PO TWICE A DAY 60 May 09, 2023 12:00am May 01, 2024 10:16am take 1 tablet by ezio th twice daily sacubitril-valsartan (ENTRESTO) 97-103 mg tablet Take 1 tablet by mouth two times a day. 0 Active Comment on above: Take 1 tablet by ezio th two times a day. Vit C-E-Zinc Jg-Fbuu-Bxa-Zeax (Icaps Areds2) 250 mg-200 unit -12.5 mg-1 mg capsule (20 sources) Start: 07-30-2023 Vit C-E-Zinc By-Bdml-Xcj-Zeax (Icaps Areds2) 250 mg-200 unit -12.5 mg-1 mg capsule Active 1 NMA PO TWICE A DAY July 30, 2023 12:00am Start: 07-30-2023 take 1 capsule by mo [facility] twice daily Vit C-E-Zinc Ws-Ssbc-Skw-Zeax (Icaps Areds2) 250 mg-200 unit -12.5 mg-1 mg capsule Active 1 CAP PO TWICE A DAY July 30, 2023 12:00am Start: 07-30-2023 Vit C-E-Zinc O l-Bfzi-Dkp-Zeax (Icaps Areds2) 250 mg-200 unit -12.5 mg-1 mg capsule Active CAP PO July 29, 2023 11:00pm Start: 07-30-2023 Vit C-E-Zinc O l-Euxp-Iqn-Zeax (Icaps Areds2) 250 mg-200 unit -12.5 mg-1 mg capsule Active CAP PO July 30, 2023 12:00am vit C/E/Zn/coppr/lutein/zeax an (PRESERVISION AREDS-2 ORAL) (10 sources) take 2 tablets by mouth once daily vit C/E/Zn/coppr/lutein/zeaxan (PRESERVISION AREDS-2 ORAL) Take 2 tablets by mouth once daily. 0 Active Comment on above: Take 2 tablets by mo uth once daily. WHEAT DEXTRIN (20 sources) Star t: [id number] Wheat Dextrin (Benefiber (Wheat Dextrin)) 1 gram tablet Active g PO .x3week May 03, 2025 10:39am Start: 04-13-2025 End: 05-03-2025 Wheat Dextrin (Benefiber (Wh eat Dextrin)) 1 gram tablet Discontinued g PO .QD April 13, 2025 12:00am May 03, 2025 10:40am Start: 04-13-2025 Wheat Dextrin (Benefiber (Wheat Dextrin)) 1 gram tablet Active g PO .QD April 13, 2025 12:00am Start: 03-08-2025 End: 03-08-2025 Wheat Dextrin (Benefiber (Wh eat Dextrin)) 1 gram tablet Discontinued g PO EVERY MORNING March 08, 2025 12:00am March 08, 2025 10:42am Completed/Discontinued Medications Medication Drug Class(es) Dates Sig (Normalized) Sig (Original) acetaminophen 500 mg oral tablet (20 sources) Start: 02-10-2022 End: 02-07-2024 take 2 tablets by mouth every eight hours Acetaminophen 500 mg tablet Discontinued 1000 mg PO EVERY 8 HOURS February 10, 2022 4:14pm February 07, 2024 6:21pm Start: 02-10-2022 End: 02-07-2024 take 1000 mg by mouth every eight hours Acetaminophen Discontinued 1000 MG PO EVERY 8 HOURS February 10, 2022 4:14pm February 07, 2024 6:21pm Start: 11-06-2021 End: 02-10-2022 take 1 tablet by mouth every twelve hours Acetaminophen (Tylenol Arthritis Pain) 650 mg tablet extended release Discontinued 650 mg PO Q12H November 06, 2021 1:00am February 10, 2022 12:10pm Start: 03-09-2014 End: 01-12-2019 Acetaminophen 650 MG tablet extended release Discontinued 650 mg PO NEEDED as needed for Pain March 09, 2014 12:00am January 12, 2019 10:18am take 2 tablets by mo uth every six hours as needed acetaminophen (TYLENOL) 325 mg tablet Take 650 mg by mouth every 6 hours as needed for pain. 0 Active acetaminophen 325 mg / HYDROcodone bitartrate 5 mg oral tablet (20 sources) Opioid Agonist Start: 07-04-2018 End: 07-03-2019 Hydrocodone-Acetaminophen 1 EACH tablet Discontinued 1 NMA PO EVERY 6 HOURS NEEDED as needed for Pain 08 29July 04, 2018 8:25am July 03, 2019 8:40am Start: 07-04-2018 End: 07-03-2019 Hydrocodone-Acetaminophen Di scontinued 1 EACH PO EVERY 6 HOURS NEEDED 10 July 04, 2018 8:25am July 03, 2019 8:40am amLODIPine 5 mg oral tablet (20 sources) Dihydropyridine Calcium Channel Merrick Start: 09-16-2023 End: 11-26-2023 take 1 tablet by mouth once daily Amlodipine 5 mg tablet Discontinued 5 mg PO DAILY October 02, 2023 1:00am November 26, 2023 2:53pm Comment on above: Take 1 tablet by ezio th daily at bedtime. apixaban 5 mg oral tablet (20 sources) Factor Xa Inhibitor Start: 07-17-2022 End: 07-30-2024 take 1 tablet by mouth twice daily Apixaban (Eliquis) 5 mg tablet Discontinued 5 mg PO TWICE A DAY February 27, 2023 4:48pm July 30, 2024 10:02am Comment on above: Take 5 mg by mouth t wo times a day. Take 1 tablet by ezio th two times a day. Continue holding Eliquis, restart 11/15/2023. ascorbic acid 113 mg / beta carotene 7160 mg / cuprous oxide 0.4 mg / dl-alpha tocopheryl acetate 100 unt / zinc oxide 17.4 mg oral tablet (20 sources) Vitamin C Start: 09-25-2019 End: 07-15-2020 take 1 tablet by mouth twice daily Vitamins A,C,W-Lvdr-Gimhhy 1 EACH tablet Discontinued 1 NMA PO TWICE A DAY September 25, 2019 12:00am July 15, 2020 9:19am Start: 09-25-2019 End: 07-15-2020 Vitamins A,C,D-Wwgl-Pmpbjs D iscontinued 1 EACH PO TWICE A DAY September 25, 2019 12:00am July 15, 2020 9:19am aspirin 81 mg chewable tablet (20 sources) Platelet Aggregation Inhibitor, Nonsteroidal Anti-inflammatory Drug Start: 03-09-2014 End: 09-26-2019 take 1 tablet by mouth once daily Aspirin 81 MG tablet,chewable Discontinued 81 mg PO DAILY@0800 March 09, 2014 12:00am September 26, 2019 12:44pm citalopram 10 mg oral tablet (20 sources) Serotonin Reuptake Inhibitor Start: 12-05-2022 End: 07-30-2023 take 1 tablet by mouth once daily Citalopram 10 mg tablet Discontinued 10 mg PO DAILY December 05, 2022 1:00am July 30, 2023 1:25pm cyclobenzaprine hydrochloride 5 mg oral tablet (10 sources) Muscle Relaxant Start: 10-13-2024 End: 11-06-2024 take 1 tablet by mouth three times daily as needed Cyclobenzaprine 5 mg tablet Discontinued 5 mg PO THREE TIMES A DAY as needed October 13, 2024 1:00am November 06, 2024 9:29am dapagliflozin 10 mg oral tablet (20 sources) Sodium-Glucose Cotransporter 2 Inhibitor Start: 12-13-2023 End: 12-20-2023 take 1 tablet by mouth once daily Dapagliflozin Propanediol (Farxiga) 10 mg tablet Discontinued 10 mg PO DAILY December 19, 2023 11:29am December 20, 2023 10:05am digoxin 0.25 mg oral tablet (20 sources) Cardiac Glycoside Start: 09-26-2019 End: 06-30-2020 take 1 tablet by mouth once daily Digoxin 250 MCG tablet Discontinued 250 ug PO DAILY September 26, 2019 12:00am June 30, 2020 4:52pm docusate sodium 100 mg oral capsule (20 sources) Start: 07-04-2018 End: 07-03-2019 take 1 capsule by mouth twice daily Docusate Sodium 100 mg capsule Discontinued 100 mg PO TWICE A DAY January 12, 2019 10:19am July 03, 2019 8:40am docusate sodium 50 mg / sennosides, alf 8.6 mg oral tablet (20 sources) Start: 02-19-2022 End: 04-16-2022 Sennosides-Docusate Sodium (Stool Softener-Stimulant Laxat) 8.6-50 mg Tablet Discontinued 2 {tbl} PO TWICE A DAY February 19, 2022 12:00am April 16, 2022 3:16pm empagliflozin 25 mg oral tablet (20 sources) Sodium-Glucose Cotransporter 2 Inhibitor Start: 12-20-2023 End: 10-13-2024 take 1 tablet by mouth once daily Empagliflozin (Jardiance) 25 mg tablet Discontinued 12.5 mg PO DAILY July 10, 2024 11:26am October 13, 2024 8:16am empagliflozin (J ARDIANCE) 25 mg tablet Take 12.5 mg by mouth daily with breakfast. 0 Active escitalopram 10 mg oral tablet (20 sources) Serotonin Reuptake Inhibitor Start: 05-15-2021 End: 12-05-2022 take 2 tablets by mouth once daily Escitalopram Oxalate (Lexapro) 10 mg tablet Discontinued 20 mg PO DAILY May 15, 2021 2:23pm December 05, 2022 3:35pm Start: 07-15-2020 End: 05-15-2021 take 1 tablet by mouth once daily Escitalopram Oxalate (Lexapro) 10 mg tablet Discontinued 10 mg PO DAILY July 15, 2020 12:00am May 15, 2021 2:23pm famotidine 40 mg oral tablet (20 sources) Histamine-2 Receptor Antagonist Start: 03-08-2025 End: 04-13-2025 take 1 tablet by mouth once daily Famotidine 40 mg tablet Discontinued 40 mg PO daily March 08, 2025 12:00am April 13, 2025 11:06am Start: 02-10-2022 End: 02-19-2022 take 1 tablet by mouth once daily Famotidine 20 mg tablet Discontinued 20 mg PO DAILY February 10, 2022 4:14pm February 19, 2022 7:12pm furosemide 40 mg oral tablet (20 sources) Loop Diuretic Start: 04-06-2024 End: 05-01-2024 take 1 tablet by mouth once daily Furosemide (Lasix) 40 mg tablet Discontinued 40 mg PO DAILY April 06, 2024 12:00am May 01, 2024 10:16am Start: 01-09-2024 End: 02-07-2024 take 1 tablet by mouth once daily Furosemide 40 mg tablet Discontinued 40 mg PO .COMPLEX January 09, 2024 1:51pm February 07, 2024 6:22pm 40 mg orally once daily X 5 days; Start: 07-31-2023 End: 12-13-2023 take 1 tablet by mouth once daily Furosemide 40 mg tablet Discontinued 40 mg PO .COMPLEX July 31, 2023 12:00am December 13, 2023 1:58pm 40 mg orally once daily X 5 days; lactulose 667 mg/ml oral solution (15 sources) Osmotic Laxative Start: 10-13-2024 End: 10-13-2024 take 10 g by mouth twice daily as needed Lactulose 10 gram/15 mL solution Discontinued 10 g PO TWICE A DAY as needed October 13, 2024 1:00am October 13, 2024 11:44am lactulose 10 gra m/15 mL (15 mL) soln Take 1 Tablespoonful by mouth two times a day. 0 Active melatonin 10 mg sublingual tablet (20 sources) Start: 02-19-2022 End: 07-17-2022 take 1 tablet by mouth at bedtime Melatonin 10 mg Tablet, Sublingual Discontinued 10 mg PO AT BEDTIME 0 February 19, 2022 12:00am July 17, 2022 9:19am omega-3s/dha/epa/fish oil/D3 (VITAMIN-D + OMEGA-3 ORAL) (5 sources) End: 03-18-2024 take 1 tablet by mouth every week omega-3s/dha/epa/fish oil/D3 (VITAMIN-D + OMEGA-3 ORAL) Take by mouth. One tab once a week 0 03/18/2024 Discontinued (Discontinued by another Health Care Provider) take 1 tablet by mouth every wee k omega-3s/dha/epa/fish oil/D3 (VITAMIN-D + OMEGA-3 ORAL) Take by mouth. One tab once a week 0 Active Comment on above: Take by mouth. One t ab once a week oxyCODONE hydrochloride 5 mg oral tablet (20 sources) Opioid Agonist Start: End: take 1-2 tablets by mouth every six hours as needed for pain Oxycodone 5 mg tablet Discontinued 10 mg PO EVERY 6 HOURS as needed for pain 56 7 February 10, 2022 February 19, 2022 7:12pm 1-2 tabs PO q6h PRN pain Start: 02-10-2022 End: 02-19-2022 take 1-2 tablets by mouth every six hours as needed for pain Oxycodone Discontinued 10 MG PO EVERY 6 HOURS 56 7 February 10, 2022 February 19, 2022 7:12pm 1-2 tabs PO q6h PRN pain polyethylene glycol 3350 26189 mg powder for oral solution (20 sources) Osmotic Laxative Start: 03-08-2025 End: 04-13-2025 Polyethylene Glycol 3350 (Miralax) 17 gram/dose powder Discontinued 4 g PO daily March 08, 2025 12:00am April 13, 2025 10:50am Start: 02-19-2022 End: 04-16-2022 take 17 g by mouth twice daily Polyethylene Glycol 335 0 17 gram Powder In Packet Discontinued 17 g PO TWICE A DAY February 19, 2022 12:00am April 16, 2022 3:16pm microencapsulated potassium chloride 10 meq extended release oral tablet (20 sources) Start: 09-26-2019 End: 07-15-2020 take 2 tablets by mouth once daily Potassium Chloride 10 mEq tablet,ER particles/crystals Discontinued 20 meq PO DAILY 180 October 20, 2019 9:38am July 15, 2020 9:18am Start: 09-26-2019 End: 07-15-2020 take 20 mEq by mouth once daily Potassium Chloride Dis continued 20 MEQ PO DAILY 180 October 20, 2019 9:38am July 15, 2020 9:18am Start: 03-26-2018 End: 09-26-2019 take 40 mEq by mouth once daily Potassium Chloride 40 mEq/15 mL liquid Discontinued 40 meq PO daily 1419 May 30, 2018 1:15pm January 12, 2019 10:49am Start: 03-06-2017 End: 03-26-2018 take 2 tablets by mouth once daily at mealtime Potassium Chloride 20 MEQ tablet Discontinued 40 meq PO DAILY WITH MEALS 60 March 06, 2017 12:00am March 26, 2018 2:57pm Start: 03-06-2017 End: 03-26-2018 take 40 mEq by mouth once daily at mealtime Potassium Chloride Discontinued 40 MEQ PO DAILY WITH MEALS 60 March 06, 2017 12:00am March 26, 2018 2:57pm take 2 tablets by mo [facility] once daily potassium chloride (K-TAB) 10 mEq tablet Take 20 mEq by mouth once daily. 0 Active Comment on above: Take 20 mEq by mouth once daily. propranolol hydrochloride 20 mg oral tablet (20 sources) beta-Adrenergic Merrick Start: 07-15-2020 End: 05-15-2021 take 10 mg by mouth twice daily Propranolol 20 mg tablet Discontinued 10 mg PO TWICE A DAY July 15, 2020 9:33am May 15, 2021 2:23pm Start: 07-15-2020 End: 05-15-2021 take 10 mg by mouth twice daily Propranolol Discontinu ed 10 MG PO TWICE A DAY July 15, 2020 9:33am May 15, 2021 2:23pm Start: 07-15-2020 End: 07-15-2020 take 1 tablet by mouth twice daily Propranolol 20 mg tablet Discontinued 20 mg PO TWICE A DAY July 15, 2020 12:00am July 15, 2020 9:33am raNITIdine 150 mg oral tablet (20 sources) Histamine-2 Receptor Antagonist Start: 03-04-2017 End: 02-17-2018 take 1 tablet by mouth at bedtime Ranitidine Hcl 150 MG tablet Discontinued 150 mg PO AT BEDTIME March 04, 2017 12:00am February 17, 2018 1:21pm rivaroxaban 20 mg oral tablet (20 sources) Factor Xa Inhibitor Start: 09-26-2019 End: 07-17-2022 take 1 tablet by mouth once daily Rivaroxaban (Xarelto) 20 mg tablet Discontinued 20 mg PO DAILY April 18, 2022 4:01pm July 17, 2022 9:41am Comment on above: Take 1 tablet by ezio th daily with dinner. DO NOT restart until 10/06/19. simvastatin 20 mg oral tablet (20 sources) HMG-CoA Reductase Inhibitor Start: 03-09-2014 End: 03-24-2025 take 1 tablet by mouth at bedtime Simvastatin 20 mg tablet Discontinued 20 mg PO AT BEDTIME April 21, 2024 4:38pm March 24, 2025 12:43pm Comment on above: Take 20 mg by mouth daily at bedtime. spironolactone 25 mg oral tablet (10 sources) Aldosterone Antagonist Start: 05-01-2024 End: 07-30-2024 Spironolactone 25 mg tablet Discontinued 12.5 mg PO DAILY May 01, 2024 12:00am July 30, 2024 9:51am sucralfate 100 mg/ml oral suspension (20 sources) Aluminum Complex Start: 03-04-2017 End: 03-26-2018 take 1 g by mouth four times daily Sucralfate 1 GM/10 ML suspension Discontinued 1 g PO 4 TIMES DAILY March 04, 2017 12:00am March 26, 2018 2:54pm traMADol hydrochloride 50 mg oral tablet (20 sources) Opioid Agonist Start: 02-10-2022 End: 07-17-2022 take 1 tablet by mouth every six hours as needed for pain Tramadol 50 mg Tablet Discontinued 50 mg PO EVERY 6 HOURS NEEDED as needed for Pain Score 4-5 28 7 February 19, 2022 12:00am July 17, 2022 9:41am 24 hr venlafaxine 37.5 mg extended release oral capsule (20 sources) Serotonin and Norepinephrine Reuptake Inhibitor Start: 11-11-2024 End: 02-09-2025 take 1 capsule by mouth once daily Venlafaxine 37.5 mg capsule,extended release 24hr Discontinued 37.5 mg PO DAILY November 11, 2024 1:00am February 09, 2025 11:23am Start: 12-13-2023 End: 04-06-2024 take 1 tablet by mouth once daily Venlafaxine 37.5 mg tablet Discontinued 37.5 mg PO DAILY December 13, 2023 1:00am April 06, 2024 1:12pm On Hold: Pt has been DC'd Problems Active Problems Problem Classification Problem Date Documented Da te Episodic/Chronic Abdominal pain (20 sources) Abdominal pain; Translations: [Unspecified abdominal pain] Onset: 4 10-13-2024 Episodic Aortic; peripheral; and visceral artery aneurysms (20 sources) Thoracic aortic aneurysm without rupture; Translations: [Thoracic aortic aneurysm, without rupture] Chronic Cardiac dysrhythmias (20 sources) Wide QRS ventricular tachycardia; Translations: [Ventricular tachycardia] Onset: 9 Chronic Cardiac dysrhythmias (20 sources) Tachycardia; Translations: [Tachycardia, unspecified] Onset: 4 Episodic Chronic kidney disease (10 sources) Chronic kidney disease stage 3A ; Translations: [Chronic renal failure, stage 3a] 10-13-2024 Chronic Chronic obstructive pulmonary disease and bronchiectasis (20 sources) Chronic obstructive lung disease; Translations: [Chronic obstructive pulmonary disease, unspecified] Chronic Complication of device; implant or graft (11 sources) Implanted defibrillator electrode lead fracture; Translations: [Other mechanical complication of cardiac electrode, subsequent encounter] Onset: 4 03-17-2024 Episodic Conditions associated with dizziness or vertigo (20 sources) Dizziness; Translations: [Dizziness and giddiness] 02-04-2024 Episodic Conduction disorders (20 sources) Cardiac defibrillator in situ; Translations: [Presence of automatic (implantable) cardiac defibrillator] Onset: 9 Chronic Comment on above: upgrade to TRAVEL [employer]REIGHT [employer] PASSENGER AGENT-D on 09/30/19 [facility] Disorders of lipid metabolism (20 sources) Hyperlipidemia; Translations: [Hyperlipidemia, unspecified] Chronic E Codes: Fall (20 sources) Fall; Translations: [Unspecified fall, initial encounter] 07-02-2023 Episodic Essential hypertension (20 sources) Hypertensive disorder; Translations: [Essential (primary) hypertension] Chronic Comment on above: CONTROLLED WITH MED Controlled without m eds Heart valve disorders (20 sources) Mitral valve prolapse; Translations: [Nonrheumatic mitral (valve) prolapse] Chronic Malaise and fatigue (20 sources) Asthenia; Translations: [Other malaise] Onset: 4 Episodic Nonspecific chest pain (20 sources) Chest pain; Translations: [Chest pain, unspecified] 11-13-2022 Episodic Nutritional deficiencies (10 sources) Deficiency of macronutrients; Translations: [Unspecified severe protein-calorie malnutrition] Onset: 9 09-30-2019 Chronic Open wounds of head; neck; and trunk (10 sources) Scalp laceration; Translations: [Laceration without foreign body of scalp, initial encounter] 11-19-2024 Episodic Osteoarthritis (20 sources) Osteoarthritis of left knee joint; Translations: [Unilateral primary osteoarthritis, left knee] Chronic Other aftercare (20 sources) H/O: high risk medication; Translations: [Other senior living (current) drug therapy] 11-11-2020 Episodic Other aftercare (20 sources) Long-term current use of anticoagulant; Translations: [termite exterminator (current) use of anticoagulants] 09-30-2023 Episodic Other aftercare (1 source) Long-term current use of drug therapy; Translations: [Other senior living (current) drug therapy] 03-17-2024 Episodic Other aftercare (2 sources) Other salvage determiner (current) drug therapy; Translations: [residential current use of antiarrhythmic drug] Onset: 4 Episodic Other aftercare (1 source) termite exterminator (current) use of anticoagulants; Translations: [residential (current) use of anticoagulants] Onset: 4 Episodic Other aftercare (3 sources) Drug therapy finding; Translations: [Other salvage determiner (current) drug therapy] 04-06-2024 Episodic Other aftercare (14 sources) Long-term current use of amiodarone; Translations: [Other senior living (current) drug therapy] 04-06-2024 Episodic Other and ill-defined heart disease (4 sources) Left ventricular systolic dysfunction; Translations: [Heart disease, unspecified] Onset: 4 03-27-2024 Chronic Other circulatory disease (20 sources) Syncope due to orthostatic hypotension; Translations: [Orthostatic hypotension] 11-12-2020 Episodic Other congenital anomalies (10 sources) Porokeratosis; Translations: [Other specified congenital malformations of skin] Onset: 01-23-2011 Chronic Other eye disorders (10 sources) Subconjunctival hemorrhage of left eye; Translations: [Conjunctival hemorrhage, left eye] 02-03-2025 Episodic Other gastrointestinal disorders (20 sources) Heartburn; Translations: [Heartburn] 10-13-2024 Episodic Other gastrointestinal disorders (20 sources) Diarrhea; Translations: [Diarrhea, unspecified] 10-13-2024 Episodic Other gastrointestinal disorders (12 sources) Urgent desire for stool; Translations: [Fecal urgency] 10-13-2024 Episodic Other gastrointestinal disorders (20 sources) Abdominal bloating; Translations: [Abdominal distension (gaseous)] 03-08-2025 Episodic Other gastrointestinal disorders (1 source) Abdominal distension (gaseous); Translations: [Abdominal distension (gaseous)] Onset: Episodic Other gastrointestinal disorders (1 source) Heartburn; Translations: [Heartburn] Onset: 5 Episodic Other gastrointestinal disorders (2 sources) Diarrhea, unspecified; Translations: [Diarrhea, unspecified] Onset: Episodic Other hereditary and degenerative nervous system conditions (10 sources) Essential tremor; Translations: [Essential tremor] 02-09-2025 Chronic Comment on above: BILAT ARMS/HANDS Other injuries and conditions due to external causes (10 sources) Closed injury of head; Translations: [Unspecified injury of head, initial encounter] 11-19-2024 Episodic Other lower respiratory disease (20 sources) Dyspnea; Translations: [Dyspnea, unspecified] 07-30-2023 Episodic Other lower respiratory disease (10 sources) Dyspnea on exertion; Translations: [Other forms of dyspnea] 07-30-2024 Episodic Other non-traumatic joint disorders (13 sources) Pain in unspecified knee; Translations: [Acute knee pain] 02-28-2024 Episodic Other nutritional; endocrine; and metabolic disorders (20 sources) Weight decreased; Translations: [Abnormal weight loss] 10-13-2024 Episodic Other nutritional; endocrine; and metabolic disorders (2 sources) Abnormal weight loss; Translations: [Abnormal weight loss] Onset: 4 Episodic Roseline-; endo-; and myocarditis; cardiomyopathy (except that caused by tuberculosis or sexually transmitted disease) (20 sources) Cardiomyopathy; Translations: [Cardiomyopathy, unspecified] Onset: 4 Chronic Residual codes; unclassified (20 sources) History of ablation of atrioventricular node; Translations: [Other specified postprocedural states] Onset: 9 11-11-2020 Episodic Comment on above: 09/30/2019 Residual codes; unclassified (20 sources) Other specified postprocedural states; Translations: [Personal history of surgery to heart and great vessels, presenting hazards to health] Onset: 3 Episodic Residual codes; unclassified (9 sources) Other specified personal risk factors, not elsewhere classified; Translations: [Other specified personal history presenting hazards to health] Onset: 3 11-12-2023 Episodic Sprains and strains (20 sources) Sprain of wrist; Translations: [Unspecified sprain of right wrist, initial encounter] 07-02-2023 Episodic Syncope (15 sources) Near syncope; Translations: [Syncope and collapse] 02-04-2024 Episodic Unclassified (1 source) Other persistent atrial fibrillation; Translations: [Persistent atrial fibrillation (HCC)] Onset: 3 Past or Other Problems Problem Classification Problem Date Documented Da te Episodic/Chronic Acquired foot deformities (10 sources) Acquired deformity of toe; Translations: [Other deformities of toe(s) (acquired), unspecified foot] Onset: 01-23-2011 01-23-2011 Episodic Deficiency and other anemia (1 source) Anemia, unspecified; Translations: [Anemia, unspecified] Onset: 07-28-2024 Episodic Other and unspecified benign neoplasm (10 sources) Benign neoplasm of colon; Translations: [Benign neoplasm of colon, unspecified] Onset: 02-16-2009 02-16-2009 Episodic Other connective tissue disease (10 sources) Pain in limb; Translations: [Pain in unspecified limb] Onset: 01-23-2011 01-23-2011 Episodic Other eye disorders (1 source) Ocular pain, bilateral; Translations: [Ocular pain, bilateral] Onset: 02-10-2025 Episodic Other gastrointestinal disorders (1 source) Fecal urgency; Translations: [Fecal urgency] Onset: 10-13-2024 Episodic Other injuries and conditions due to external causes (1 source) Unspecified injury of head, initial encounter; Translations: [Unspecified injury of head, initial encounter] Onset: 12-15-2024 Episodic Other lower respiratory disease (14 sources) Dyspnea, unspecified; Translations: [Other respiratory abnormalities] Onset: 06-16-2024 07-30-2023 Episodic Other lower respiratory disease (1 source) Other forms of dyspnea; Translations: [Other forms of dyspnea] Onset: 08-20-2024 Episodic Other screening for suspected conditions (not mental disorders or infectious disease) (11 sources) Patient encounter status; Translations: [Encounter for screening for malignant neoplasm of colon] Onset: 02-16-2009 02-16-2009 Episodic Skin and subcutaneous tissue infections (10 sources) Disorder of nail; Translations: [Cellulitis of unspecified toe] Onset: 01-23-2011 01-23-2011 Episodic Results Test Name Value Interpretation Reference Range Facility Cardiology Visit Reporton Cardiology Visit Report [facility] [address] [place] [address] OFFICE VISIT Date of Service: 05/03/25 MR#: [id number] Acct: [id number] Name: BENITO WHITTINGTON Rep #: [id number] : 1945 Provider: NERI butterfield Age/Sex: 79/M Location: [facility] [place] Status: Signed HPI HPI History of Present Illness Details: Patient is a 79-year-old white male who presents to the office today for cardiovascular follow-up visit. He carries a history of a nonischemic dilated cardiomyopathy EF known to be in the 35% range on echocardiogram done February 2024. The patient has an ICD in place due to a history of VT. He also had supraventricular tachycardia and ICD firings. He is on long-term amiodarone therapy. His labs were checked at the [facility] in September showed normal liver function by his report his thyroid was normal June 2024 labs that were done here at [place] and he had a negative chest x-ray March 2024. The patient also reports that he had PFTs and due to is due to have a high-resolution CT for lung cancer screening in the near future at the [facility]. The patient has a history of hypertension his blood pressure is well-controlled on his current medical regimen. He also has a history of thoracic aortic aneurysm measuring 3.8 cm on a CTA in July 2023. He has a history of hyperlipidemia and dyspnea on exertion. He is also a remote smoker. From a cardiac standpoint, the patient is doing well. He denies any palpitations, chest pain, pressure or heaviness. He does acknowledge SOB with exertion and at rest. This is nothing new or worsening. He denies Orthopnea, and PND. He does not have bleeding issues; no blood in urine, stool, or nosebleeds. He does acknowledge a decrease in energy level. He denies any myalgias, or claudication. He does not have edema, or sudden weight gain. He does have dizziness/lightheadedness. He denies syncopal or near syncopal episodes, and headaches. Intake Vital Signs 11/06/24 08:28 05/03/25 06:54 05/03/25 10:18 05/03/25 10:46 Height 6 ft 3 in 6 ft 3 in 6 ft 3 in 6 ft 3 in Weight: 151 lb BMI 18.8 BP 123/80 H Blood Pressure Location Lt brachial Position Sitting Respiration 18 Pulse 70 Pulse Source Monitor Pulse Oximetry (%) 98 Intake Visit Reasons: 6 M FU/OPAL @ 10 Allergies No Known Allergies Allergy (Verified 05/03/25 10:40) Medications ???Medication ???Instructions ???Recorded ???Confirmed ???Type vit C 250 mg-vit E 200 unit-zinc 1 cap PO BID 07/30/23 05/03/25 His tory ox 12.5 nh-lifsls-gnwthh-zeax capsule (ICaps AREDS2) mecobalamin (vitamin B12) 1,000 1,000 mcg PO DAILY 05/01/24 History mcg chewable tablet apixaban 5 mg tablet (Eliquis) 5 mg PO BID #180 tabs 07/30/2408/19 Rx empagliflozin 25 mg tablet 25 mg PO DAILY 10/13/24 05/03/25 H istory (Jardiance) metoprolol succinate 25 mg 12.5 mg PO QHS 02/09/25 05/03/25 H istory tablet,extended release 24 hr amiodarone 200 mg tablet 100 mg (1/2 x 200 mg) PO DAILY Pt 02/16/25 05/03/25 Rx awaiting mail in RX, he is OUT of medication #45 tabs loperamide 2 mg capsule (Imodium 2 mg PO .QOD 03/08/25 05/03/25 His tory A-D) simvastatin 20 mg tablet 20 mg PO QHS cholesterol #90 tabs 03/24/25 05/03/25 Rx cholecalciferol (vitamin D3) 1,250 1,250 mcg PO QWEEK 05/03/2508/19 History mcg (50,000 unit) capsule sacubitril 97 mg-valsartan 103 mg 0.5 tab PO BID 05/03/25 05/03/25 History tablet (Entresto) wheat dextrin 1 gram tablet g PO .x3week 05/03/25 05/03/25 His tory (Benefiber (wheat dextrin)) Have you fallen in the past year?: No PFSH Medical History (Reviewed 05/03/25 @ 13:07 by Rashmi Fatima [employer], [employer]-C) COPD (chronic obstructive pulmonary disease) Loss of hearing Cancer Anxiety Alcohol use Low iron Back pain History of IBS Former smoker History of echocardiogram History of stress test Essential tremor Chronic a-fib Essential hypertension Wears glasses Arthritis Thoracic aortic aneurysm Syncope MVP (mitral valve prolapse) Shortness of breath on exertion Cardiology follow-up encounter Pacemaker ICD (implantable cardioverter-defibrillator) in place Long-term use of high-risk medication Near syncope SVT (supraventricular tachycardia) Nonrheumatic mitral (valve) prolapse Premature ventricular contraction Colitis Depression Thoracic aortic aneurysm without rupture Cardiomyopathy Ventricular tachycardia Hyperlipidemia Hypertension Surgical History (Reviewed 05/03/25 @ 13:07 by aRshmi Fatima [employer], [employer]OMAT[employer]ER-C) Hx of colonoscopy History of total left knee replacement History of bilateral cataract extraction Hx of atrioventricular node ablation History of partial nephrectomy (07/02/18) Presence of cardiac defibrillator History of (more content not included)... Normal [facility] Free [id number] By: Rashmi boss on 05-03-2025 Free T3 [Mass/Vol] 2.8 pg/mL 2.18-3.98 [facility] Comment on above: Performed By: #### M 100.637, L7000.0700, L3100.1950, L7000.0750, M100.6796, L7400.3300, M600.5000 #### [facility] [address] [place], [place], [address] Pacemaker Checkon 05-03-2025 Pacemaker Check [facility] [address] [place], [place] [address] Pacemaker Check Date of Service: 05/03/25 1314 MR#: [id number] Acct: [id number] Name: BENITO WHITTINGTON Rep #: [id number] : 1945 From: Poppy Colón Age/Sex: 79/M Location: [facility] [place] Status: Signed Billing Codes ICD Device Billin ICD Dev Prog Eval, Multi Assessment and Plan Assessment and Plan (1) Presence of cardiac defibrillator: Status: Chronic Comment: upgrade to TRAVEL [employer]RE[employer] AND PASSENGER AGENT-D on 09/30/19 [facility] (2) Hx of atrioventricular node ablation: Status: Chronic Comment: 09/30/2019 05/03/25 1322 Date Poppy Galeana Signature: Date (if applicable) CC: Normal [facility] T4 Free Directon 05-03-2025 T4 FREE DIRECT 1.30 ng/dL Normal 0.76-1.46 [facility] Comment on above: Performed By: #### M 100.637, L7000.0700, L3100.1950, L7000.0750, M100.6796, L7400.3300, M600.5000 #### [facility] [address] [place], [address] T4 freeOrdered By: Rashmi boss on 05-03-2025 Free T4 [Mass/Vol] 1.30 ng/dL 0.76-1.46 [facility] TSH DL <= 0.005 mIU/L QnOrde red By: Rashmi Fatima on 05-03-2025 TSH Qn 0.940 uIU/mL 0.300-4.20 0 [facility] Thyroid Stim Hormone (TSH)on 05-03-2025 TSH 0.940 uIU/mL Normal 0.300-4.20 0 [facility] Comment on above: Performed By: #### M 100.637, L7000.0700, L3100.1950, L7000.0750, M100.6796, L7400.3300, M600.5000 #### [facility] [address] [place], [address] Abdomen/Pelvis WITH Contrast on 04-23-2025 Abdomen/Pelvis WITH Contrast [facility] [address] [place] [address] Abdomen/Pelvis WITH Contrast MR#: [id number] Acct: [id number] Name: BENITO WHITTINGTON Rep #: [id number] : 1945 M 79 From: Rian Haas PCP: Dr. Helen Lainez MD Status: REG CLI Study: Abdomen/Pelvis WITH Contrast Date of Exam: Exam# [id number] Ordering Dr: Yoko Blas [employer]- C PROCEDURE: ABDOMEN/PELVIS WITH CONTRAST 04/23/2025 REASON FOR EXAM: ABDOMINAL PAIN TECHNIQUE: Abdomen and pelvis CT with intravenous contrast. Coronal and Sagittal reconstruction series were provided. PATIENT PREPARATION: Per protocol ORAL CONTRAST TYPE: None. AMOUNT: mL CONTRAST: 100 mL of Isovue 370 One or more dose reduction techniques were used (e.g., Automated exposure control, adjustment of the mA and/or kV according to patient size, use of iterative reconstruction technique. RADIATION DOSE SUMMARY: DLP: 483 mGycm COMPARISON: FINDINGS: Stable reticular density within the right lower lobe, grossly unchanged measuring approximately 9.5 x 6.3 cm, which may reflect fibrosis versus spiculated lesion. The liver, spleen, pancreas, both kidneys, and both adrenal glands demonstrate no acute findings. The gallbladder is unremarkable. The stomach is distended with residue. Extensive atherosclerotic changes of the abdominal aorta with distal abdominal aorta measuring up to 2.2 cm. There is no free air, free fluid or intestinal obstruction. The appendix is not clearly identified, although there are no secondary signs of appendicitis. Scattered small bowel and colonic inflammation may reflect enterocolitis. No bowel obstruction. Extensive colonic diverticulosis without acute diverticulitis. The pelvic structures are intact. Prostatomegaly to 5.1 cm in transverse dimension. Mild thickening of the urinary bladder wall which may reflect cystitis; consider correlation with urinalysis. Extensive multilevel lumbar degenerative changes. No acute fractures. CT/Abdomen/Pelvis WITH Contrast IMPRESSION: Scattered small bowel and colonic inflammation may reflect enterocolitis. No bowel obstruction. Extensive colonic diverticulosis without acute diverticulitis. Mild thickening of the urinary bladder wall which may reflect cystitis; consider correlation with urinalysis. Prostatomegaly to 5.1 cm in transverse dimension. Reading Location: [id number] CC: NERI Blas; Dr. Helen Lainez MD Dry Cure Worker: Signed Normal [facility] Gastroenterology Visit Repor ton 04-13-2025 Gastroenterology Visit Report [facility] [address] [place] [address] OFFICE VISIT Date of Service: 04/13/25 MR#: [id number] Acct: [id number] Name: BENITO WHITTINGTON Rep #: [id number] : 1945 Provider: NERI vega Age/Sex: 79/M Location: [facility] [place] Status: Signed Intake Vital Signs 03/08/25 10:33 04/13/25 10:53 Height 6 ft 3 in 6 ft 3 in Weight: 155 lb 6 oz 154 lb 8 oz BMI 19.4 19.3 BP 106/66 94/60 Respiration 16 16 Pulse 79 69 Pulse Oximetry (%) 98 97 Oxygen Delivery Method room air room air Intake Visit Reasons: fu Chief Complaint: diarrhea Hot Mill Worker Required: No Accompanied by: Self Is patient in pain?: Yes Allergies No Known Allergies Allergy (Verified 03/08/25 10:33) Medications ???Medication ???Instructions ???Recorded ???Confirmed ???Type vit C 250 mg-vit E 200 unit-zinc 1 cap PO BID 07/30/23 04/13/25 His tory ox 12.5 nm-kiupns-ilpvgw-zeax capsule (ICaps AREDS2) mecobalamin (vitamin B12) 1,000 1,000 mcg PO DAILY 05/01/24 History mcg chewable tablet apixaban 5 mg tablet (Eliquis) 5 mg PO BID #180 tabs 07/30/24 Rx empagliflozin 25 mg tablet 25 mg PO DAILY 10/13/24 04/13/25 H istory (Jardiance) sacubitril 97 mg-valsartan 103 mg 1 tab PO BID 10/13/24 04/13/25 Hi story tablet (Entresto) metoprolol succinate 25 mg 12.5 mg PO QHS 02/09/25 04/13/25 H istory tablet,extended release 24 hr amiodarone 200 mg tablet 100 mg (1/2 x 200 mg) PO DAILY Pt 02/16/25 04/13/25 Rx awaiting mail in RX, he is OUT of medication #45 tabs loperamide 2 mg capsule (Imodium 2 mg PO .QOD 03/08/25 04/13/25 His tory A-D) simvastatin 20 mg tablet 20 mg PO QHS cholesterol #90 tabs 03/24/25 04/13/25 Rx wheat dextrin 1 gram tablet g PO .QD 04/13/25 04/13/25 History (Benefiber (wheat dextrin)) Have you fallen in the past year?: No PFSH Medical History COPD (chronic obstructive pulmonary disease) Loss of hearing Cancer Anxiety Alcohol use Low iron Back pain History of IBS Former smoker History of echocardiogram History of stress test Essential tremor Chronic a-fib Essential hypertension Wears glasses Arthritis Thoracic aortic aneurysm Syncope MVP (mitral valve prolapse) Shortness of breath on exertion Cardiology follow-up encounter Pacemaker ICD (implantable cardioverter-defibrillator) in place Long-term use of high-risk medication Near syncope SVT (supraventricular tachycardia) Nonrheumatic mitral (valve) prolapse Premature ventricular contraction Colitis Depression Thoracic aortic aneurysm without rupture Cardiomyopathy Ventricular tachycardia Hyperlipidemia Hypertension Surgical History Hx of colonoscopy History of total left knee replacement History of bilateral cataract extraction Hx of atrioventricular node ablation History of partial nephrectomy (07/02/18) Presence of cardiac defibrillator History of tonsillectomy Family History Father Heart disease Sister Heart disease Brother Heart disease Mother Pancreas (digestive gland) works poorly Social History household members: none current occupational status: retired Smoking Status: Former smoker how long ago did patient quit smokin alcohol intake: never substance use type: does not use caffeine: Yes Type: coffee Number of servings: 2 frequency: 1-2 times per week HPI HPI Chief Complaint: diarrhea Details: BENITO WHITTINGTON, is a 79 M who presents to the office today for OV 03/09/2025 79-year-old male presents for follow-up post procedure. He was last seen in the office 10/13/2024 with complaints of diarrhea with urgency and generalized abdominal discomfort. He had also reported a 10 to 15 pound weight loss. His weight is stable today. Colonoscopy was performed 02/10/2025 and revealed a 5 mm sessile tubular adenoma. Terminal ileum and random colon biopsies were unremarkable. It is recommended he repeat the colonoscopy in 5 years. Fecal calprotectin, fecal elastase, Giardia and stool H. pylori were all negative 10/15/2024. Celiac serologies and CRP were also unremarkable September 2024. Abdominal x-ray was unremarkable 10/13/2024. He reports improvement in bowel habits with the addition of Metamucil QD and Imodium QOD. I have recommended trailing a lactose free diet. He complains of generalized abdominal discomfort, bloating and intermittent reflux symptoms. He will start famotidine 40mg daily and complete an ABD US. He will follow-up in the office in 4-6 weeks. Patient Instructions: Continue natalya (more content not included)... Normal [facility] Abdomen Limitedon 03-15-2025 Abdomen Limited [facility] Imaging Services [address] [place] [address] Abdomen Limited MR#: [id number] Acct: [id number] Name: OLMANBENITO Adilia Rep #: [id number] : 1945 M 79 From: Manuelito marshall MD PCP: Dr. Helen Lainez MD Status: REG CLI Study: Abdomen Limited Date of Exam: 03/15/25 Exam# [id number] Ordering Dr: Yoko Blas PROCEDURE: ABDOMEN LIMITED 03/15/2025 REASON FOR EXAM: BLOATING, ABD PAIN COMPARISON: None FINDINGS: Liver: Grossly normal size and echotexture. Gallbladder: No stones sludge wall thickening or tenderness. Common bile duct: Normal measuring 5 mm.. Pancreas: Visualized portions are sonographically unremarkable. Other: Visualized portions of the right kidney are unremarkable. No right upper quadrant ascites. US/Abdomen Limited IMPRESSION: NORMAL RIGHT UPPER QUADRANT ULTRASOUND. Reading Location: [facility] CC: NERI Blas; Dr. Helen Lainez MD Dry Cure Worker: Signed Normal [facility] Gastroenterology Visit Repor ton 03-08-2025 Gastroenterology Visit Report [facility] Gastroenterology [address] [place] [address] OFFICE VISIT Date of Service: 03/08/25 MR#: [id number] Acct: [id number] Name: BENITO WHITTINGTON Rep #: [id number] : 1945 Provider: NERI vega Age/Sex: 79/M Location: [facility] [place] Status: Signed Intake Vital Signs 02/10/25 08:03 03/08/25 10:33 Height 6 ft 3 in 6 ft 3 in Weight: 155 lb 6 oz BMI 19.4 BP 106/66 Respiration 16 Pulse 79 Pulse Oximetry (%) 98 Oxygen Delivery Method room air Intake Visit Reasons: Follow up Chief Complaint: diarrhea Hot Mill Worker Required: No Is patient in pain?: Yes Allergies No Known Allergies Allergy (Verified 03/08/25 10:33) Medications ???Medication ???Instructions ???Recorded ???Confirmed ???Type vit C 250 mg-vit E 200 unit-zinc 1 cap PO BID 07/30/23 03/08/25 His tory ox 12.5 oe-tnwplj-folxuj-zeax capsule (ICaps AREDS2) simvastatin 20 mg tablet 20 mg PO QHS cholesterol #90 tabs 04/21/24 03/08/25 Rx mecobalamin (vitamin B12) 1,000 1,000 mcg PO DAILY 05/01/24 History mcg chewable tablet apixaban 5 mg tablet (Eliquis) 5 mg PO BID #180 tabs 07/30/24 Rx empagliflozin 25 mg tablet 25 mg PO DAILY 10/13/24 03/08/25 H istory (Jardiance) sacubitril 97 mg-valsartan 103 mg 1 tab PO BID 10/13/24 03/08/25 Hi story tablet (Entresto) metoprolol succinate 25 mg 12.5 mg PO QHS 02/09/25 03/08/25 H istory tablet,extended release 24 hr amiodarone 200 mg tablet 100 mg (1/2 x 200 mg) PO DAILY Pt 02/16/25 03/08/25 Rx awaiting mail in RX, he is OUT of medication #45 tabs famotidine 40 mg tablet 40 mg PO QDAY #90 tabs 03/08/25 Rx loperamide 2 mg capsule (Imodium 2 mg PO .QOD 03/08/25 03/08/25 His tory A-D) polyethylene glycol 3350 17 4 g PO QDAY 03/08/25 03/08/25 Hist ory gram/dose oral powder (Miralax) Have you fallen in the past year?: No Nurse's Note: PCP started him on fiber powder daily and diarrhea pills every other day to get his diarrhea under control. [facility] Medical History COPD (chronic obstructive pulmonary disease) Loss of hearing Cancer Anxiety Alcohol use Low iron Back pain History of IBS Former smoker History of echocardiogram History of stress test Essential tremor Chronic a-fib Essential hypertension Wears glasses Arthritis Thoracic aortic aneurysm Syncope MVP (mitral valve prolapse) Shortness of breath on exertion Cardiology follow-up encounter Pacemaker ICD (implantable cardioverter-defibrillator) in place Long-term use of high-risk medication Near syncope SVT (supraventricular tachycardia) Nonrheumatic mitral (valve) prolapse Premature ventricular contraction Colitis Depression Thoracic aortic aneurysm without rupture Cardiomyopathy Ventricular tachycardia Hyperlipidemia Hypertension Surgical History Hx of colonoscopy History of total left knee replacement History of bilateral cataract extraction Hx of atrioventricular node ablation History of partial nephrectomy (07/02/18) Presence of cardiac defibrillator History of tonsillectomy Family History Father Heart disease Sister Heart disease Brother Heart disease Mother Pancreas (digestive gland) works poorly Social History household members: none current occupational status: retired Smoking Status: Former smoker how long ago did patient quit smokin alcohol intake: never substance use type: does not use caffeine: Yes Type: coffee Number of servings: 2 frequency: 1-2 times per week HPI HPI Chief Complaint: diarrhea Details: BENITO WHITTINGTON, is a 79 M who presents to the office today for OV 10/13/2024 79y/o male presents for consultation with complaints of diarrhea. Stool culture, O P negative 09/13/2024. PMH significant for non-CAD related cardiomyopathy, SVT, VT, MVP, hyperlipidemia, hypertension, thoracic aortic aneurysm, with AICD and on Eliquis. He reports a long history of alternation constipation and diarrhea, reporting he was using Lactulose PRN until 2 months ago. Over the past 6 months he reports an increase in diarrhea and much worse the past 3 weeks. He is experiencing generalized abdominal discomfort and fecal urgency without incontinence. Stools are typically after meals and denies any bleeding. He complains of a 10-15lb weight loss over the past several months as well. I have ordered stool testing, labs and scheduled him for a colonoscopy pending cardiac clearance with approval to hold Eliquis 2 days prior to procedure. 1. Complete abdominal x-r (more content not included)... Normal [facility] Colonoscopy Reporton 025 Colonoscopy Report [facility] Medical Records Department [address] [place] [address] Colonoscopy Report MR#: [id number] Acct: [id number] Name: BENITO WHITTINGTON Rep #: [id number] : 1945 79 From: Juan Diego Noriega DO PCP: Dr. Helen Lainez MD Status:[facility] Patient Name: Benito Whittington Procedure Date: 02/10/2025 8:36 AM Date of : 1945 Age: 79 Procedure: Colonoscopy Indications: Chronic diarrhea Providers: Juan Diego Noriega DO Referring MD: Helen Lainez Medicines: Monitored Anesthesia Care Patient Profile: This is a 79 year old male. Refer to note in patient chart for documentation of history and physical. Last Colonoscopy: date unknown. Unable to locate last colonoscopy report. Complications: No immediate complications. Procedure: Pre-Anesthesia Assessment: - Prior to the procedure, a History and Physical was performed, and patient medications and allergies were reviewed. The patient is competent. The risks and benefits of the procedure and the sedation options and risks were discussed with the patient. All questions were answered and informed consent was obtained. Patient identification and proposed procedure were verified by the physician in the pre-procedure area. Mental Status Examination: alert and oriented. Airway Examination: normal oropharyngeal airway and neck mobility. Respiratory Examination: clear to auscultation. CV Examination: normal. ASA Grade Assessment: II - A patient with mild systemic disease. After reviewing the risks and benefits, the patient was deemed in satisfactory condition to undergo the procedure. The anesthesia plan was to use monitored anesthesia care (MAC). Immediately prior to administration of medications, the patient was re-assessed for adequacy to receive sedatives. The heart rate, respiratory rate, oxygen saturations, blood pressure, adequacy of pulmonary ventilation, and response to care were monitored throughout the procedure. The physical status of the patient was re-assessed after the procedure. After I obtained informed consent, the scope was passed under direct vision. Throughout the procedure, the patient's blood pressure, pulse, and oxygen saturations were monitored continuously. The Colonoscope was introduced through the anus and advanced to the terminal ileum. The colonoscopy was performed without difficulty. The patient tolerated the procedure well. The quality of the bowel preparation was adequate. Scope In: 8:49:35 AM Scope Withdrawal Time 0 hours 11 minutes 19 seconds Scope Out: 9:10:00 AM Total Procedure Duration Time 0 hours 20 minutes 25 seconds Findings: The perianal and digital rectal examinations were normal. Multiple small-mouthed diverticula were found in the recto-sigmoid colon, sigmoid colon and descending colon. A 5 mm polyp was found in the sigmoid colon. The polyp was sessile. The polyp was removed with a jumbo cold forceps. Resection and retrieval were complete. Verification of patient identification for the specimen was done. Estimated blood loss was minimal. The colon (entire examined portion) appeared normal. Biopsies were taken with a cold forceps for histology. Verification of patient identification for the specimen was done. Estimated blood loss was minimal. The terminal ileum appeared normal. Biopsies were taken with a cold forceps for histology. Verification of patient identification for the specimen was done. Estimated blood loss was minimal. Impression: - No specimens collected. Recommendation: - Discharge patient to home. - Resume previous diet. - Continue present medications. - Await pathology results. - Repeat colonoscopy in 5 years for surveillance. - Return to GI office. Procedure Code(s): --- Professional --- 38675, Colonoscopy, flexible; with biopsy, single or multiple CPT copyright 2021 [employer]. All rights reserved. The codes documented in this report are preliminary and upon real estate agency licensee review may be revised to meet current compliance requirements. Juan Diego Noriega DO 02/10/2025 9:20:42 AM This report has been signed electronically. Number of Addenda: 0 Note Initiated On: 02/10/2025 8:36 AM 02/10/25 0920 Date Juan Diego Crenshaw Signature: Date (if indicated) CC: Dr. Helen Lainez MD; Juan Diego Noriega DO Date Dictated: 02/10/25835 Date Transcribed: Dry Cure Worker: BELL Signed [facility] MR/POSTOP.ANEon 02-10-2025 MR/POSTOP.[facility] Medical Records Department [address] [place] [address] Anesthesia Postop Eval I 02/10/25854 MR#: [id number] Acct: [id number] Name: BENITO WHITTINGTON Rep #: [id number] : 1945 79 From: Mumtaz Tobias CRNA PCP: Dr. Helen Lainez MD Status:REG [facility] [place] Y Race: C Location: [place] [address] Anesthesia: Postop Eval I Current Vital Signs Temperature: 97.0 F Pulse Rate: 73 Blood Pressure: 74/47 Respiratory Rate: 20 Pulse Ox: 99 Oxygen Delivery Method: Room Air Assessment Airway patent: Yes Spontaneous unlabored respirations: Yes Mental status: Awake and Calm nausea: No Vomiting: No Anesthesia Complication: No Fluid Hydration Crystalloid volume administer (ml): 20 Total IV fluid infused: 20 Progress Note Anesthesia document: Postop Eval 1 completed: Yes 02/10/25915 Date Mumtaz Tobias WINE CONSULTANT Jairigner Signature: Date CC: Signed [facility] MR/POCBIBQQ1zs 02-10-2025 MR/POSTOPAN2 [facility] Medical Records Department [address] [place] [address] Anesthesia Postop Eval II 02/10/25 1330 MR#: [id number] Acct: [id number] Name: BENITO WHITTINGTON Rep #: [id number] : 1945 79 From: Julissa Shi PCP: Dr. Helen Lainez MD Status:DEP [facility] [place] Y Race: C Location: [place] Anesthesia Postop Eval I Sum Postop Eval Completion status Anesthesia document: Postop Eval 1 completed: Yes Anesthesia Postop Eval I Summary Anesthesia Postop Eval I Summary: Anesthesia Postop Eval I: Assessment Summary Airway patent Yes 02/10/25 09:16 WINE CONSULTANT.[email or web address] Spontaneous unlabored Yes 02/10/25 09:16 WINE CONSULTANT.PKEL respirations Mental status Awake,Calm 02/10/25 09:16 WINE CONSULTANT.PKEL nausea No 02/10/25 09:16 WINE CONSULTANT.PKEL Vomiting No 02/10/25 09:16 WINE CONSULTANT.PKEL Anesthesia Postop Eval I: Fluid Summary Crystalloid volume administer 20 02/10/25 09:16 WINE CONSULTANT.PKEL (ml) Colloids volume administered ( ml) Blood Product volume administered (ml) Total IV fluid infused 20 02/10/25 09:16 WINE CONSULTANT.PKEL Anesthesia Postop Eval I: Summary Notes Anesthesia Complication No 02/10/25 09:16 WINE CONSULTANT.PKEL Anesthesia Complication Comment: Post-operative progress note Anesthesia: Postop Eval II Evaluation Mental status: Awake Pain Level: 0 nausea: No Vomiting: No 02/10/25 1330 Date Julissa Galeana Signature: Date CC: Signed Normal [facility] Surgery Specimen Level Nicole 02-10-2025 Surgery Specimen Level IV -------- Patient Age/Sex Location Account Attending Physician -------- BENITO WHITTINGTON 79/M EN [id number] Juan Diego Noriega DO -------- Specimen: [id number] Received: 02/10/25 Status: GRACE Reyes Num: [id number] Spec Type: COLON BX Subm Dr: Juan Diego Noriega DO HEADER OPERATION: Colonoscopy with polyp biopsy PRE-OP DIAGNOSIS: Abdominal pain, weight loss, diarrhea TISSUE SUBMITTED: A- Sigmoid polyp biopsy, B- Terminal ileum, C- Random colon biopsy -------- MICROSCOPIC DIAGNOSIS A. Sigmoid polyp, biopsy: Tubular adenoma B. Terminal ileum, biopsy:Small intestinal mucosa with no histopathologic abnormalityC. Random colon, biopsy: Colonic mucosa with no histopathologic abnormality; no definitive cryptitis or crypt abscessesJ vishal GRAVES, 02/18/2025 MICROSCOPIC DESCRIPTION Slides are reviewed. GROSS DESCRIPTION A. Received in fixative is one container labeled with the patient's name and designated Sigmoid polyp biopsy. The specimen consists of one irregular fragment of light merida soft tissue that measures 0.4 x 0.3 x 0.2 cm. The specimen is totally submitted in one cassette. B. Received in fixative is one container labeled with the patient's name and designated Terminal ileum biopsy. The specimen consists of two irregular fragments of light merida soft tissue that in aggregate measure 0.8 x 0.3 x 0.2 cm. The specimen is totally submitted in one cassette. C. Received in fixative is one container labeled with the patient's name and designated Random colon biopsy. The specimen consists of multiple irregular fragments of light merida soft tissue that in aggregate measure 2.5 x 0.2 x 0.2 cm. The specimen is totally submitted in one cassette. / 02/10/2025 CPT:70052c6, TC:1 -------- Patient Age/Sex Location Account Attending Physician -------- BENITO WHITTINGTON/Adilia SAHNI [id number] Juan Diego Noriega DO -------- Signed (signature on file) Dr. Bart Rodgers MD 02/18/25 1332 -------- Normal [facility] Comment on above: Performed By: #### P SUIV ####[facility] [address] [place], [address] MR/PAT.Lauren 02-09-2025 MR/PAT.[facility] Medical Records Department [address] [place] [address] PAT - Anesthesia 02/09/25 1530 MR#: [id number] Acct: [id number] Name: BENITO WHITTINGTON Rep #: [id number] : 1945 79 From: Len Samayoa MD PCP: Dr. Helen Lainez MD Status:PRE [facility] Y Race: C Location: EN Pre-Assessment Diagnosis/Proposed Procedure Planned Operative Procedure(s): CSCOPE Anesthesia History Anesthesia History - deli slicer: Anesthesia History - deli slicer Hx Hospitalization No 02/09/25 11:24 Any Problems With Anesthesia No 02/09/25 11:24 Cholinesterase deficiency No 02/09/25 11:24 You/Your Family Experience No 02/09/25 11:24 fever (hyperthermia) with Relationship Recent Exposure to Contagious No 02/08/22 05:55 Disease Does patient have nerve No 02/09/25 11:24 stimulator Patient instructed to have device shut off --Does patient have Pacemaker or ICD? When Was Last Pacemaker Check 03/26/18 06/26/18 10:06 QUESTION #4 FULL TEXT: You/Your Family Experience fever (hyperthermia) with Anesthesia Last Oral Intake Last Oral intake: Last Oral Intake NPO since Meds taken in AM with sips of water? Meds patient instructed to take am of surgery PONV PONV - deli slicer: PONV - deli slicer Female No 02/09/25 11:24 HX of Motion Sickness No 02/09/25 11:24 HX of N/V After Surgery No 02/09/25 11:24 Non-Smoker Yes 02/09/25 11:24 Duration of Surgery greater No 02/09/25 11:24 than 60 minutes Number of Risk Factors 1 02/09/25 11:24 PONV Score Low Risk 02/09/25 11:24 Height Weight Height Weight: Anesthesia: Height Weight Height 6 ft 3 in 11/11/24 19:42 Respiratory Assessment Respiratory Assessment - deli slicer: Respiratory Tract Infection Hx - deli slicer Hx Respiratory Tract Infection No 02/09/25 11:24 STOP Sleep Apnea STOP Sleep Apnea - deli slicer: STOP Sleep Apnea - deli slicer Hx Hypertension Yes: CONTROLLED WITH MED 02/09/25 11:24 Hx Sleep Apnea No 02/09/25 11:24 CPAP BIPAP Do you snore loudly (louder No 02/09/25 11:24 than talking or can be heard Do you often feel tired/ Yes 02/09/25 11:24 fatigued/ sleepy during daytime? Has anyone observed you stop No 02/09/25 11:24 breathing during sleep? STOP Results Positive 02/09/25 11:24 QUESTION #5 FULL TEXT : Do you snore loudly (louder than talking or can be heard through closed doors)? 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: /Reproductive Hx- deli slicer Hx Now No 02/09/25 11:24 Gestational Age (in weeks): EDC: Hx Hx Para Hx Section SAB No 02/09/25 11:24 [facility] Medical History (Updated 02/09/25 @ 11:39 by Betty Patrick) COPD (chronic obstructive pulmonary disease) Loss of hearing Cancer Anxiety Alcohol use Low iron Back pain History of IBS Former smoker History of echocardiogram History of stress test Essential tremor Chronic a-fib Essential hypertension Wears glasses Arthritis Thoracic aortic aneurysm Syncope MVP (mitral valve prolapse) Shortness of breath on exertion Cardiology follow-up encounter Pacemaker ICD (implantable cardioverter-defibrillator) in place Long-term use of high-risk medication Near syncope SVT (supraventricular tachycardia) Nonrheumatic mitral (valve) prolapse Premature ventricular contraction Colitis Depression Thoracic aortic aneurysm without rupture Cardiomyopathy Ventricular tachycardia Hyperlipidemia Hypertension Home Medicat (more content not included)... Normal [facility] MR/PAT.[facility] Medical Records Department [address] [place] [address] PAT - Anesthesia 02/09/25 1320 MR#: [id number] Acct: [id number] Name: BENITO WHITTINGTON Rep #: [id number] : 1945 79 From: Len Samayoa MD PCP: Dr. Helen Lainez MD Status:PRE [facility] [place] Y Race: C Location: EN Pre-Assessment Diagnosis/Proposed Procedure Planned Operative Procedure(s): CSCOPE Anesthesia History Anesthesia History - deli slicer: Anesthesia History - deli slicer Hx Hospitalization No 02/09/25 11:24 Any Problems With Anesthesia No 02/09/25 11:24 Cholinesterase deficiency No 02/09/25 11:24 You/Your Family Experience No 02/09/25 11:24 fever (hyperthermia) with Relationship Recent Exposure to Contagious No 02/08/22 05:55 Disease Does patient have nerve No 02/09/25 11:24 stimulator Patient instructed to have device shut off --Does patient have Pacemaker or ICD? When Was Last Pacemaker Check 03/26/18 06/26/18 10:06 QUESTION #4 FULL TEXT: You/Your Family Experience fever (hyperthermia) with Anesthesia Last Oral Intake Last Oral intake: Last Oral Intake NPO since Meds taken in AM with sips of water? Meds patient instructed to take am of surgery PONV PONV - deli slicer: PONV - deli slicer Female No 02/09/25 11:24 HX of Motion Sickness No 02/09/25 11:24 HX of N/V After Surgery No 02/09/25 11:24 Non-Smoker Yes 02/09/25 11:24 Duration of Surgery greater No 02/09/25 11:24 than 60 minutes Number of Risk Factors 1 02/09/25 11:24 PONV Score Low Risk 02/09/25 11:24 Height Weight Height Weight: Anesthesia: Height Weight Height 6 ft 3 in 11/11/24 19:42 Respiratory Assessment Respiratory Assessment - deli slicer: Respiratory Tract Infection Hx - deli slicer Hx Respiratory Tract Infection No 02/09/25 11:24 STOP Sleep Apnea STOP Sleep Apnea - deli slicer: STOP Sleep Apnea - deli slicer Hx Hypertension Yes: CONTROLLED WITH MED 02/09/25 11:24 Hx Sleep Apnea No 02/09/25 11:24 CPAP BIPAP Do you snore loudly (louder No 02/09/25 11:24 than talking or can be heard Do you often feel tired/ Yes 02/09/25 11:24 fatigued/ sleepy during daytime? Has anyone observed you stop No 02/09/25 11:24 breathing during sleep? STOP Results Positive 02/09/25 11:24 QUESTION #5 FULL TEXT : Do you snore loudly (louder than talking or can be heard through closed doors)? 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: /Reproductive Hx- deli slicer Hx Now No 02/09/25 11:24 Gestational Age (in weeks): EDC: Hx Hx Para Hx Section SAB No 02/09/25 11:24 PFSH Medical History (Updated 02/09/25 @ 11:39 by Betty Patrick) COPD (chronic obstructive pulmonary disease) Loss of hearing Cancer Anxiety Alcohol use Low iron Back pain History of IBS Former smoker History of echocardiogram History of stress test Essential tremor Chronic a-fib Essential hypertension Wears glasses Arthritis Thoracic aortic aneurysm Syncope MVP (mitral valve prolapse) Shortness of breath on exertion Cardiology follow-up encounter Pacemaker ICD (implantable cardioverter-defibrillator) in place Long-term use of high-risk medication Near syncope SVT (supraventricular tachycardia) Nonrheumatic mitral (valve) prolapse Premature ventricular contraction Colitis Depression Thoracic aortic aneurysm without rupture Cardiomyopathy Ventricular tachycardia Hyperlipidemia Hypertension Home Medicat (more content not included)... Normal [facility] Emergency Department Summary on 01-26-2025 Emergency Department Summary [facility] Medical Records Department [address] [place] [address] Emergency Department Summary 01/26/25 MR#: [id number] Acct: [id number] Name: BENITO WHITTINGTON Rep #: [id number] : 1945 79 From: Efrain Giron DO PCP: Dr. Helen Lainez MD Status:DEP ER Location: ED HPI History of Present Illness Chief Complaint: Eye Problem Onset/Context/Timing Location: Left Eye Onset: Hours (2) Context: Sudden Onset Timing: Continuous Worsened by: Nothing Relieved by: Nothing Associated Symptoms Associated Symptoms - Eyes: Pain and Redness; Negative for Burning, Crusting, Drainage, Eyelid swelling, Foreign body sensation, Itching, Matting or Photophobia Visual Changes: left: Blurred vision History of injury: No Visual correction: Glasses Narrative Narrative: Patient presents with left eye redness and swelling that began approximately 2 hours prior to arrival. Patient states he was driving and he felt pressure in his left eye. Patient states he got home and looked in the mirror. Patient noted redness to his left eye. Patient admits to some blurry vision. Patient denies any trauma or injury. The patient denies any matting or crusting. Patient denies any itching or drainage. Patient wears glasses. Patient is on Eliquis for atrial fibrillation. [facility] Medical History Essential tremor Chronic a-fib Essential hypertension Wears glasses Loose, teeth Ambulates with cane Arthritis Thoracic aortic aneurysm Syncope MVP (mitral valve prolapse) Gastric reflux Shortness of breath on exertion Cardiology follow-up encounter Pacemaker ICD (implantable cardioverter-defibrillator) in place Pre-op evaluation Long-term use of high-risk medication Near syncope Chest pain SVT (supraventricular tachycardia) Nonrheumatic mitral (valve) prolapse Premature ventricular contraction Colitis GERD (gastroesophageal reflux disease) Depression Anemia Hypokalemia Thoracic aortic aneurysm without rupture Cardiomyopathy Ventricular tachycardia Hyperlipidemia Hypertension Home Medications ???Medication ???Instructions ???Recorded ???Last Taken ???Type vit C 250 mg-vit E 200 unit-zinc 1 cap PO BID 07/30/23 Unknown Hist ory ox 12.5 fl-tfwugr-bzueck-zeax capsule (ICaps AREDS2) simvastatin 20 mg tablet 20 mg PO QHS cholesterol #90 tabs 04/21/24 Unknown Rx mecobalamin (vitamin B12) 1,000 1,000 mcg PO DAILY 05/01/24 Unknow n History mcg chewable tablet amiodarone 200 mg tablet 100 mg (1/2 x 200 mg) PO DAILY Pt 07/30/24 Unknown Rx awaiting mail in RX, he is OUT of medication #30 tabs apixaban 5 mg tablet (Eliquis) 5 mg PO BID #180 tabs 07/30/24 Unk nown Rx metoprolol succinate 25 mg 12.5 mg (1/2 x 25 mg) PO DAILY #45 09/21/24 Unknown Rx tablet,extended release 24 hr tabs empagliflozin 25 mg tablet 25 mg PO DAILY 10/13/24 Unknown Hi story (Jardiance) sacubitril 97 mg-valsartan 103 mg 1 tab PO BID 10/13/24 Unknown His tory tablet (Entresto) venlafaxine 37.5 mg 37.5 mg PO DAILY 11/11/24 Unknown History capsule,extended release 24 hr Allergy/AdvReac Type Severity Reaction Status Date / Time No Known Allergies Allergy Verified 01/26/25 17:51 Family History Father Heart disease Sister Heart disease Brother Heart disease Mother Pancreas (digestive gland) works poorly Surgical History History of total left knee replacement History of bilateral cataract extraction Hx of atrioventricular node ablation History of partial nephrectomy (07/02/18) Presence of cardiac defibrillator History of tonsillectomy Social History household members: none current occupational status: retired Smoking Status: Former smoker how long ago did patient quit smokin alcohol intake: never substance use type: does not use caffeine: Yes Type: coffee Number of servings: 2 frequency: 1-2 times per week ROS ROS ED Constitutional Constitutional ED: Denies chills or fever(s) Eyes Eyes: Denies blurry vision or change in vision ENT ENT ED: Denies rhinorrhea or sore throat Cardiovascular Cardiovascular: Denies chest pain or palpitations Respiratory/Chest Respiratory/Chest: Denies cough or dyspnea Gastrointestinal Gastrointestinal: Denies nausea or vomiting Genitourinary Genitourinary ED: Denies dysuria or hematuria Musculoskeletal Musculoskeletal: Reports back pain and neck pain Integumentary Denies abscess or rash Neurologic Neurologic: Reports headache(s); Denies weakness Allergic/Immunologic Allergic/Immunologic ED: Denies mouth swelling or urticaria EXAM P (more content not included)... Normal [facility] Ova and Parasites 8623on OP OVA AND PARASITES EX AM, ROUTINE These results were obtained using wet preparation(s) and trichrome stained smear. This test does not include testing for Crytosporidium parvum, Cyclospora, or Microsporidia. One negative specimen does not rule out the possibility of a parasitic infection. _ TESTING PERFORMED AT [facility]. ORIGINAL REPORT ON FILE IN LAB CONTAINS ADDITIONAL TEST SITE INFORMATION. _ Ova/Parasite Exam NO OVA, CYSTS, OR PARASITES FOUND. Normal [facility] Comment on above: Performed By: #### M 100.637, L7000.0700, L3100.1950, L7000.0750, M100.6796, L7400.3300, M600.5000 #### [facility] [address] [place], [address] Brain/Head without Contrasto n 11-11-2024 Brain/Head without Contrast [facility] Imaging Services [address] [place] [address] Brain/Head without Contrast MR#: [id number] Acct: [id number] Name: BENITO WHITTINGTON Rep #: [id number] : 1945 M 79 From: Richar contreras DO PCP: Dr. Helen Lainez MD Status: REG Study: Brain/Head without Contrast Date of Exam: 10/25 07/18 Exam# [id number] Ordering Dr: Liborio Abarca MD :[id number] EXAM: CT HEAD WITHOUT INTRAVENOUS CONTRAST CLINICAL INDICATION: Head trauma on anticoagulant TECHNIQUE: Multiple axial images were obtained of the head without intravenous contrast. This CT exam was performed using one or more of the following dose reduction techniques: automated exposure control, adjustment of the mA and/or kV according to patient size, and/or use of iterative reconstruction technique. COMPARISON: 10/14/2022 FINDINGS: BRAIN AND EXTRA-AXIAL SPACES: There is non-specific periventricular hypoattenuation which is most commonly related to chronic microvascular ischemic disease in a patient of this age. There is no mass, mass-effect, or shift of the midline structures. No evidence of acute infarct or acute intracranial hemorrhage. There is no evidence of pathologic extra-axial fluid. There is no hydrocephalus. Patent basal cisterns. BONES/JOINTS: Bilateral TMJ arthrosis. Degenerative changes partially visualized in the upper cervical spine. No discrete lytic or blastic abnormalities. SINUSES: No significant findings. MASTOID AIR CELLS: No significant effusion. ORBITS: Bilateral ocular lens extraction presumptively for the treatment of cataracts. Otherwise, no acute orbital pathology. DENTAL: The maxilla is edentulous. CT/Brain/Head without Contrast IMPRESSION: Chronic microvascular ischemic changes. No CT evidence of acute intracranial pathology. Electronically Signed: Richar Dudley DO at 21:04 EST , CC: Dr. Helen Lainez MD; Dr. 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 Helen Lainez MD Status:REG ER Location: ED HPI History of Present Illness Chief Complaint: Fall Detail of Chief Complaint: Head trauma on anticoagulant Informant: patient Onset/Context/Timing Onset: Today and Hours Mechanism/Context: Fall Quality of Pain: - (Scalp contusion with bleeding) Location: Fell outside due to on level ground Current Severity: Gone Maximum Severity: Mild Worsened by: Anticoagulant Relieved by: Nothing Associated Symptoms Associated Symptoms: Negative for Parasthesias, Weakness, Loss of function, Inability to ambulate, Loss of consciousness or Amnesia Narrative Narrative: Patient is a 79-year-old male. He lost his balance because of uneven ground. There was a step-off of 3 to 4 inches. He is on anticoagulant. He hit his head. He denies goetz ears decreased hearing. Eyes double vision blurred vision loss of vision. No trouble speech or swallowing. He denies chest pain or shortness of breath. He denies black or maroon-colored stool. He denies pain in his extremities. He denies paresthesia, anesthesia motors. Denies trouble with balance or coordination. Tetanus Immunization: 5-10 years Prior similar symptoms: Yes Recent Illness/Hospitalization: No PFSH PFSH Medical History Essential tremor Chronic a-fib Essential hypertension Wears glasses Loose, teeth Ambulates with cane Arthritis Thoracic aortic aneurysm Syncope MVP (mitral valve prolapse) Gastric reflux Shortness of breath on exertion Cardiology follow-up encounter Pacemaker ICD (implantable cardioverter-defibrillator) in place Pre-op evaluation Long-term use of high-risk medication Near syncope Chest pain SVT (supraventricular tachycardia) Nonrheumatic mitral (valve) prolapse Premature ventricular contraction Colitis GERD (gastroesophageal reflux disease) Depression Anemia Hypokalemia Thoracic aortic aneurysm without rupture Cardiomyopathy Ventricular tachycardia Hyperlipidemia Hypertension Home Medications ???Medication ???Instructions ???Recorded ???Last Taken ???Type vit C 250 mg-vit E 200 unit-zinc 1 cap PO BID 07/30/23 Unknown History ox 12.5 dd-nefmgt-tobeww-zeax capsule (ICaps AREDS2) simvastatin 20 mg tablet 20 mg PO QHS cholesterol #90 tabs 04/21/24 Unknown Rx mecobalamin (vitamin B12) 1,000 1,000 mcg PO DAILY 05/01/24 Unknown History mcg chewable tablet amiodarone 200 mg tablet 100 mg (2 x 200 mg) PO DAILY Pt 07/30/24 Unknown Rx awaiting mail in RX, he is OUT of medication #30 tabs apixaban 5 mg tablet (Eliquis) 5 mg PO BID #180 tabs 07/30/24 Unknown Rx metoprolol succinate 25 mg 12.5 mg (1/2 x 25 mg) PO DAILY #45 09/21/24 Unknown Rx tablet,extended release 24 hr tabs empagliflozin 25 mg tablet 25 mg PO DAILY 10/13/24 Unknown History (Jardiance) sacubitril 97 mg-valsartan 103 mg 1 tab PO BID 10/13/24 Unknown History tablet (Entresto) Allergy/AdvReac Type Severity Reaction Status Date / Time No Known Allergies Allergy Verified 11/11/24 19:42 Family History Father Heart disease Sister Heart disease Brother Heart disease Mother Pancreas (digestive gland) works poorly Surgical History History of total left knee replacement History of bilateral cataract extraction Hx of atrioventricular node ablation History of partial nephrectomy (07/02/18) Presence of cardiac defibrillator History of tonsillectomy Social History household members: none current occupational status: retired Smoking Status: Former smoker how long ago did patient quit smokin alcohol intake: never substance use type: does not use caffeine: Yes Type: coffee Number of servings: 2 frequency: 1-2 times per week ROS ROS ED Constitutional Constitutional ED: Denies chills, fever(s), subjective or sweats Eyes Eyes: Denies blurry vision or change in vision ENT ENT ED: Denies ear pain, rhinorrhea or sore throat Cardiovascular Cardiovascular: Denies chest pain or palpitations Respiratory/Chest Respiratory/Chest: Denies cough, dyspnea or dyspnea on exertion Gastrointestinal Gastrointestinal: Denies abdominal pain, nausea or vomiting Genitourinary Genitourinary ED: Denies hematuria Musculoskeletal Musculoskeletal: Denies back pain or neck pain Integumentary Reports Abrasions Neurologic Neurologic: Denies headache(s), paresthesias or weakness Endoc (more content not included)... Normal [facility] Cardiology Visit Reporton Cardiology Visit Report [facility] [address] [place] [address] OFFICE VISIT Date of Service: 11/06/24 MR#: [id number] Acct: [id number] Name: BENITO WHITTINGTON Rep #: [id number] : 1945 Provider: Dr. Rakesh daley MD Age/Sex: 79/M Location: [facility] Status: Signed HPI HPI History of Present Illness Details: Patient is a 79-year-old white male that comes in today for monitoring of his cardiovascular status. He carries a history of a nonischemic dilated cardiomyopathy EF known to be in the 35% range on echocardiogram done February 2024. The patient has an ICD in place due to a history of VT. He also had supraventricular tachycardia and ICD firings. He is on long-term amiodarone therapy. His labs were checked at the [facility] in September showed normal liver function by his report his thyroid was normal June 2024 labs that were done here at [place] and he had a negative chest x-ray March 2024. The patient also reports that he had PFTs and due to is due to have a high-resolution CT for lung cancer screening in the near future at the [facility]. The patient has a history of hypertension his blood pressure is well-controlled on his current medical regimen. He also has a history of thoracic aortic aneurysm measuring 3.8 cm on a CTA in July 2023. He has a history of hyperlipidemia and dyspnea on exertion. He is also a remote smoker. Patient reports that he gets some dizzy spells that lasts seconds and resolve spontaneously. He has not had any passing out or near syncopal spells these occur usually daily and sometimes 2-3 times a day. He simply stops what he is doing weights a few seconds and it resolves when he goes about his business. This has been going on for about a year by his report. I did ask him to catalog when these occurred the date and time so that it is device check we can correlate that with any arrhythmia. Patient denies any lower extremity edema denies any PND orthopnea he does get dyspnea with some activities but he can take care of his activities of daily living without restrictions. 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 Accompanied by: Self Is patient in pain?: No Allergies No Known Allergies Allergy (Verified 11/06/24 08:28) Medications ???Medication ???Instructions ???Recorded ???Confirmed ???Type vit C 250 mg-vit E 200 unit-zinc 1 cap PO BID 07/30/23 11/06/24 History ox 12.5 mu-ckjbny-qljiwo-zeax capsule (ICaps AREDS2) simvastatin 20 mg tablet 20 mg PO QHS cholesterol #90 tabs 04/21/24 11/06/24 Rx mecobalamin (vitamin B12) 1,000 1,000 mcg PO DAILY 05/01/24 11/06/24 History mcg chewable tablet amiodarone 200 mg tablet 100 mg (1/2 x 200 mg) PO DAILY Pt 07/30/24 11/06/24 Rx awaiting mail in RX, he is OUT of medication #30 tabs apixaban 5 mg tablet (Eliquis) 5 mg PO BID #180 tabs 07/30/24 11/06/24 Rx metoprolol succinate 25 mg 12.5 mg (1/2 x 25 mg) PO DAILY #45 09/21/24 11/06/24 Rx tablet,extended release 24 hr tabs empagliflozin 25 mg tablet 25 mg PO DAILY 10/13/24 11/06/24 History (Jardiance) sacubitril 97 mg-valsartan 103 mg 1 tab PO BID 10/13/24 11/06/24 History tablet (Entresto) Ejection fraction %: 35 Have you fallen in the past year?: No PFSH Medical History Essential tremor Chronic a-fib Essential hypertension Wears glasses Loose, teeth Ambulates with cane Arthritis Thoracic aortic aneurysm Syncope MVP (mitral valve prolapse) Gastric reflux Shortness of breath on exertion Cardiology follow-up encounter Pacemaker ICD (implantable cardioverter-defibrillator) in place Pre-op evaluation Long-term use of high-risk medication Near syncope Chest pain SVT (supraventricular tachycardia) Nonrheumatic mitral (valve) prolapse Premature ventricular contraction Colitis GERD (gastroesophageal reflux disease) Depression Anemia Hypokalemia Thoracic aortic aneurysm without rupture Cardiomyopathy Ventricular tachycardia Hyperlipidemia Hypertension Surgical History History of total left knee replacement History of bilateral cataract extraction Hx of atrioventricular node ablation History of partial nephrectomy (07/02/18) Presence of cardiac defibrillator History of tonsillectomy Family History Father Heart disease Sister Heart disease Brother Heart disease Moth (more content not included)... Normal [facility] Giardia Lamblia, Stool EIAon 10-19-2024 Giardia Stool Negative Normal Negative [facility] Comment on above: Result Comment: Perf ormed at: [email or web address] - [facility] [id number] Dust Operator: Yadira Barnard MD, Phone: [phone] Performed at: [facility] [address] [id number] Dust Operator: Irwin Cantu PhD, Phone: [phone] Performed By: #### M 100.637, L7000.0700, L3100.1950, L7000.0750, M100.6796, L7400.3300, M600.5000 #### [facility] [address] [place], [place], [id number] H. PYLORI STOOL AGon 024 H PYLORI STL AG Negative Normal Negative [facility] Comment on above: Performed By: #### M 100.637, L7000.0700, L3100.1950, L7000.0750, M100.6796, L7400.3300, M600.5000 #### [facility] [address] [place], [address] L7000.0750on 10-19-2024 P ELASTASE,FECA 646 Normal >200 [facility] Comment on above: Result Comment: Resu lt Units: ug Elast./g Severe Pancreatic Insufficiency: <100 Moderate Pancreatic Insufficiency: 100 - 200 Normal: >200 Performed By: #### M 100.637, L7000.0700, L3100.1950, L7000.0750, M100.6796, L7400.3300, M600.5000 #### [facility] [address] [place], [address] ([phone]) Calprotectin, Stoolon [address] 46 ug/g Normal 0-120 [facility] Comment on above: Result Comment: Conc entration Interpretation Follow-Up < 5 - 50 ug/g Normal None >50 -120 ug/g Borderline Re-evaluate in 4-6 weeks >120 ug/g Abnormal Repeat as clinically indicated Performed at: [facility] [id number] Dust Operator: Yadira Barnard MD, Phone: [phone] Performed By: #### M 100.637, L7000.0700, L3100.1950, L7000.0750, M100.6796, L7400.3300, M600.5000 #### [facility] [address] [place], [address] ([phone]) C. difficile DNA CHRISTIAN+probe Q l (Unsp spec)Ordered By: Yoko Blas on 10-15-2024 Clostridioides difficile (PCR) [facility] CDIFF (PCR)on 10-15-2024 CDIFF Pending 027 [id number] NAP1-B1 Presumptive Negative *for epidemiolologic???use C. Diff PCR Negative- No toxigenic C. Diff Detected Normal [facility] Comment on above: Performed By: #### M 100.637, L7000.0700, L3100.1950, L7000.0750, M100.6796, L7400.3300, M600.5000 #### [facility] [address] [place], [place], [id number] Calprotectin stoolOrdered By : Yoko Blas on 10-15-2024 Stool Calprotectin 46 ug/g 0-120 [facility] Comment on above: Concentration Interp retation Follow-Up< 5 - 50 ug/g Normal None>50 -120 ug/g Borderline Re-evaluate in 4-6 weeks >120 ug/g Abnormal Repeat as clinically indicatedPerformed at: [facility] - [facility] [address] [id number] Director: Yadira Barnard MD, Phone: [phone] ENTERIC PATHOGEN PANEL STOOL on 10-15-2024 EP PANEL Normal Reference Ran ge = Not Detected GI pathogens Pnl Stl CHRISTIAN+probe Not detected for Campylobacter group, Salmonella species, Shigella species, Vibrio Group, Yersinia enterocolitica, EHEC (Shiga Toxin 1, Shiga Toxin 2), Norovirus Gl/Gll, and Rotavirus A. Other common stool pathogens are not detected on this panel include: Aeromonas/Plesiomonas or parasites. Order testing for these organisms separately if suspected. This is an amplified DNA test which makes it both specific and sensitive. CAMPYLOBACTER Not Detected Norovirus Not Detected Rotavirus Not Detected Salmonella Not Detected Shiga Toxin Not Detected Shigella sp. Not Detected VIBRIO Not Detected Yersinia Not Detected Normal [facility] Comment on above: Performed By: #### M 100.637, L7000.0700, L3100.1950, L7000.0750, M100.6796, L7400.3300, M600.5000 #### [facility] [address] [place] [address]. [place], [place], [id number] Elastase.pancreatic (Stl) [M ass/Mass]Ordered By: Yoko Blas on 10-15-2024 Stool Pancreatic Elastase 646 >200 [facility] Comment on above: Result Units: ug Patricia st./g Severe Pancreatic Insufficiency: <100 Moderate Pancreatic Insufficiency: 100 - 200 Normal: >200 G. lamblia Ag IA Ql (Stl)Ord ered By: Yoko Blas on 10-15-2024 Stool Giardia Antigen Negative Negative [facility] Comment on above: Performed at: [facility] [address] [id number] Director: Yadira Barnard MD, Phone: [phone] at: [facility] [place], [place] [id number] Director: Irwin Cantu PhD, Phone: [phone] H. pylori Ag IA Ql (Stl)Orde red By: Yoko Blas on 10-15-2024 Stool Helicobacter pylori Antigen Negative Negative [facility] Ova and parasitesOrdered By: Yoko Blas on 10-15-2024 Ova and Parasites [facility] Stool enteric pathogen panel by probe and target amplification methodOrdered By: Yoko Blas on 10-15-2024 Enteric Bacteriology [facility] Celiac Disease Profileon ENDOMYSIAL IGA Negative Normal Negative [facility] Comment on above: Performed By: #### L 3410.2400, L5500.0550, [id number] ####[facility] [address] [place], [place], [id number] IMMUNOGLOB A QN 332 mg/dL Normal 61-437 [facility] Comment on above: Result Comment: Perf ormed at: [facility] [address] [place], [place] [id number] Dust Operator: Irwin Cantu PhD, Phone: [phone] Performed By: #### L 3410.2400, L55000550, L550.0208 ####[facility] [address] [place], [place], [id number] tTG IGA <2 Normal 0-3 [facility] Comment on above: Result Comment: Nega tive 0 - 3 Weak Positive 4 - 10 Positive >10 Tissue Transglutaminase (tTG) has been identified as the endomysial antigen. Studies have demonstr- ated that endomysial IgA antibodies have over 99% specificity for gluten sensitive enteropathy. Performed By: #### L 3410.2400, L5500.0550, L5016710 ####[facility] [address] [place], [place], [id number] [employer] Decub and/or Erecton 10-13-2024 Abd Inc Decub and/or Erect [facility] Imaging Services [address] [place] [address] Abd Inc Decub and/or Erect MR#: [id number] Acct: [id number] Name: BENITO WHITTINGTON Rep #: [id number] : 1945 M 79 From: Dheeraj Rosales MD PCP: Dr. Helen Lainez MD Status: REG CLI Study: Abd Inc Decub and/or Erect Date of Exam: 10/13 Exam# [id number] Ordering Dr: Yoko Blsa :[id number] STUDY: X-RAY - ABDOMEN/PELVIS REASON FOR EXAM: Male, 79 years old. r/o constipation TECHNIQUE: Single AP view of the abdomen / pelvis. COMPARISON: None. FINDINGS: Normal visualized lung bases. There is an unremarkable bowel gas pattern. The visualized liver, spleen and kidneys are grossly normal in size and morphology. Normal soft tissue structures. There are diffuse degenerative changes of the visualized lumbar spine. RAD/Abd Inc Decub and/or Erect IMPRESSION: Normal x-ray examination of the abdomen and pelvis. Electronically Signed: Dheeraj Rosales MD at 12:20 [facility] , CC: NERI Blas; Dr. Helen Lainez MD Dry Cure Worker: Signed Normal [facility] C-reactive protein measureme nt by high sensitivity methodOrdered By: Yoko Blas on 10-13-2024 C-Reactive Protein Extended Range < 2.90 mg/L 0.0-3.0 [facility] Comment on above: C-Reactive Protein ( CRP) provides useful information for thediagnosis, therapy and monitoring of inflammatory processesand associated diseases. For the evaluation of Relative Riskfor Cardiovascular Disease, a High Sensitivity CRP (HSCRP)should be ordered. CRPon 10-13-2024 C-REACTIVE PROT < 2.90 Normal 0.0-3.0 [facility] Comment on above: Result Comment: C-Re active Protein (CRP) provides useful information for the diagnosis, therapy and monitoring of inflammatory processes and associated diseases. For the evaluation of Relative Risk for Cardiovascular Disease, a High Sensitivity CRP (HSCRP) should be ordered. Performed By: #### L 3410.2400, L5500.0550, L501.6710 ####[facility] [address] [place], [address] Endomysial IgA antibody assa yOrdered By: Yoko Blas on 10-13-2024 Endomysial IgA Antibody Negative Negative [facility] Gastroenterology Visit Repor ton 10-13-2024 Gastroenterology Visit Report [facility] [address] [place] [address] OFFICE VISIT Date of Service: 10/13/24 MR#: [id number] Acct: [id number] Name: BENITO WHITTINGTON Rep #: [id number] : 1945 Provider: NERI vega Age/Sex: 79/M Location: [facility] Status: Signed Intake Vital Signs 07/30/24 09:50 10/13/24 10:07 Height 6 ft 3 in Weight: 152 lb BP 96/63 Respiration 16 Pulse 67 Temp 97.8 F Pulse Oximetry (%) 94 Oxygen Delivery Method room air Intake Visit Reasons: Diarrhea Chief Complaint: diarrhea Hot Mill Worker Required: No Is patient in pain?: No Allergies No Known Allergies Allergy (Verified 10/13/24 07:06) Medications ???Medication ???Instructions ???Recorded ???Confirmed ???Type vit C 250 mg-vit E 200 unit-zinc 1 cap PO BID 07/30/23 10/13/24 History ox 12.5 br-kfzpzh-lgojrj-zeax capsule (ICaps AREDS2) simvastatin 20 mg tablet 20 mg PO QHS cholesterol #90 tabs 04/21/24 10/13/24 Rx mecobalamin (vitamin B12) 1,000 1,000 mcg PO DAILY 05/01/24 10/13/24 History mcg chewable tablet amiodarone 200 mg tablet 100 mg (1/2 x 200 mg) PO DAILY Pt 07/30/24 10/13/24 Rx awaiting mail in RX, he is OUT of medication #30 tabs apixaban 5 mg tablet (Eliquis) 5 mg PO BID #180 tabs 07/30/24 10/13/24 Rx cholecalciferol (vitamin D3) 1,250 1,250 mcg PO QMONTH 07/30/24 10/13/24 History mcg (50,000 unit) capsule metoprolol succinate 25 mg 12.5 mg (1/2 x 25 mg) PO DAILY #45 09/21/24 10/13/24 Rx tablet,extended release 24 hr tabs cyclobenzaprine 5 mg tablet 5 mg PO TID PRN 10/13/24 10/13/24 History empagliflozin 25 mg tablet 25 mg PO DAILY 10/13/24 10/13/24 History (Jardiance) sacubitril 97 mg-valsartan 103 mg 1 tab PO BID 10/13/24 10/13/24 History tablet (Entresto) Have you fallen in the past year?: No Nurse's Note: Diarrhea has been ongoing for the last 3 years but has increased in frequency within the last two or three weeks. His abdomen is sore as a result. Has had a colonoscopy within the last 10 years but not sure of the exact date. [facility] Medical History (Updated 10/13/24 @ 10:49 by Yoko Blas NP-C) Essential tremor Chronic a-fib Essential hypertension Wears glasses Loose, teeth Ambulates with cane Arthritis Thoracic aortic aneurysm Syncope MVP (mitral valve prolapse) Gastric reflux Shortness of breath on exertion Cardiology follow-up encounter Pacemaker ICD (implantable cardioverter-defibrillator) in place Pre-op evaluation Long-term use of high-risk medication Near syncope Chest pain SVT (supraventricular tachycardia) Nonrheumatic mitral (valve) prolapse Premature ventricular contraction Colitis GERD (gastroesophageal reflux disease) Depression Anemia Hypokalemia Thoracic aortic aneurysm without rupture Cardiomyopathy Ventricular tachycardia Hyperlipidemia Hypertension Surgical History (Reviewed 07/30/24 @ 11:46 by Rashmi Fatima [employer]ER, [employer]OM[employer]ER [employer] REAMER-C) History of total left knee replacement History of bilateral cataract extraction Hx of atrioventricular node ablation History of partial nephrectomy (07/02/18) Presence of cardiac defibrillator History of tonsillectomy Family History (Updated 10/13/24 @ 07:07 by Vandana Bowman) Father Heart disease Sister Heart disease Brother Heart disease Mother Pancreas (digestive gland) works poorly Social History (Updated 10/13/24 @ 07:09 by Vandana Bowman) household members: none Smoking Status: Former smoker how long ago did patient quit smokin alcohol intake: never substance use type: does not use caffeine: Yes Type: coffee Number of servings: 2 frequency: 1-2 times per week HPI HPI Chief Complaint: diarrhea Details: 79y/o male presents for consultation with complaints of diarrhea. Stool culture, O P negative 09/13/2024. PMH significant for non-CAD related cardiomyopathy, SVT, VT, MVP, hyperlipidemia, hypertension, thoracic aortic aneurysm, with AICD and on Eliquis. He reports a long history of alternation constipation and diarrhea, reporting he was using Lactulose PRN until 2 months ago. Over the past 6 months he reports an increase in diarrhea and much worse the past 3 weeks. He is experiencing generalized abdominal discomfort and fecal urgency without incontinence. Stools are typically after meals and denies any bleeding. He complains of a 10-15lb weight loss over the past several months as well. - diarrhea and abdominal discomfort - the diarrhea has been ongoing for the past few years but much worse recently (3 weeks) - reports in the past he would have diarrhea that would last 3-4 days - but now the diarrhea is persisting - denies any fecal incontinence - he does experience urgency - waking up at HS with diarrhea on occasion - [place] 6-7 - having 1-5x (more content not included)... Normal [facility] IgA [Mass/Vol]Ordered By: Jaime Blas on 10-13-2024 Immunoglobulin A 332 mg/dL 61-437 [facility] Comment on above: Performed at: [address] [id number] Director: Irwin Cantu PhD, Phone: [phone] l5500.0550 10-13-2024 [facility] Comment on above: Result Comment: [employer] DID NOT WANT TO BE LIABLE FOR PAYING FOR TESTS, DENIED ALLERY PROFILE BLOODWORK. Performed By: #### L 3410.2400, L5500.0550, L501.6710 ####[facility] [address] [place], [address] [facility] Comment on above: Result Comment: [employer]OH[employer] DID NOT WANT TO BE LIABLE FOR PAYING FOR TESTS, DENIED ALLERY PROFILE BLOODWORK. Performed By: #### L 3410.2400, L5500.0550, L501.6710 ####[facility] [address] [place], [address] [facility] Comment on above: Result Comment: [employer]OH[employer] DID NOT WANT TO BE LIABLE FOR PAYING FOR TESTS, DENIED ALLERY PROFILE BLOODWORK. Performed By: #### L 3410.2400, L5500.0550, L501.6710 ####[facility] [address] [place], [address] [facility] Comment on above: Result Comment: [employer]OH[employer] DID NOT WANT TO BE LIABLE FOR PAYING FOR TESTS, DENIED ALLERY PROFILE BLOODWORK. Performed By: #### L 3410.2400, L5500.0550, L501.6710 ####[facility] [address] [place], [address] [facility] Comment on above: Result Comment: [employer] DID NOT WANT TO BE LIABLE FOR PAYING FOR TESTS, DENIED ALLERY PROFILE BLOODWORK. Performed By: #### L 3410.2400, L5500.0550, L501.6710 ####[facility] [address] [place], [address] [facility] Comment on above: Result Comment: [employer] DID NOT WANT TO BE LIABLE FOR PAYING FOR TESTS, DENIED ALLERY PROFILE BLOODWORK. Performed By: #### L 3410.2400, L5500.0550, L501.6710 ####[facility] [address] [place], [address] [facility] Comment on above: Result Comment: JOH[employer] DID NOT WANT TO BE LIABLE FOR PAYING FOR TESTS, DENIED ALLERY PROFILE BLOODWORK. Performed By: #### L 3410.2400, L5500.0550, L501.6710 ####[facility] [address] [place], [address] [facility] Comment on above: Result Comment: [employer]OH[employer] DID NOT WANT TO BE LIABLE FOR PAYING FOR TESTS, DENIED ALLERY PROFILE BLOODWORK. Performed By: #### L 3410.2400, L5500.0550, L501.6710 ####[facility] [address] [place], [address] [facility] Comment on above: Result Comment: [employer] DID NOT WANT TO BE LIABLE FOR PAYING FOR TESTS, DENIED ALLERY PROFILE BLOODWORK. Performed By: #### L 3410.2400, L5500.0550, L501.6710 ####[facility] [address] [place], [address] [facility] Comment on above: Result Comment: JOHANA E[employer] DID NOT WANT TO BE LIABLE FOR PAYING FOR TESTS, DENIED ALLERY PROFILE BLOODWORK. Performed By: #### L 3410.2400, L5500.0550, L501.6710 ####[facility] [address] [place], [address] [facility] Comment on above: Result Comment: JOHANA E[employer] DID NOT WANT TO BE LIABLE FOR PAYING FOR TESTS, DENIED ALLERY PROFILE BLOODWORK. Performed By: #### L 3410.2400, L5500.0550, L501.6710 ####[facility] [address] [place], [address] [facility] Comment on above: Result Comment: JOHANA E[employer] DID NOT WANT TO BE LIABLE FOR PAYING FOR TESTS, DENIED ALLERY PROFILE BLOODWORK. Performed By: #### L 3410.2400, L5500.0550, L501.6710 ####[facility] [address] [place], [address] [facility] Comment on above: Result Comment: JOH[employer] DID NOT WANT TO BE LIABLE FOR PAYING FOR TESTS, DENIED ALLERY PROFILE BLOODWORK. Performed By: #### L 3410.2400, L5500.0550, L501.6710 ####[facility] [address] [place], [address] [facility] Comment on above: Result Comment: JOHANA [employer] DID NOT WANT TO BE LIABLE FOR PAYING FOR TESTS, DENIED ALLERY PROFILE BLOODWORK. Performed By: #### L 3410.2400, L5500.0550, L501.6710 ####[facility] [address] [place], [address] tTG IgA Qn (S)Ordered By: Jaime Blas on 10-13-2024 Tissue Transglutaminase IgA Ab <2 U/mL 0-3 [facility] Comment on above: Negative 0 - 3 Weak Positive 4 - 10 Positive >10 Tissue Transglutaminase (tTG) has been identified as the endomysial antigen. Studies have demonstr- ated that endomysial IgA antibodies have over 99% specificity for gluten sensitive enteropathy. [facility] Parasites 8623on OP OVA AND PARASITES EX AM, ROUTINE These results were obtained using wet preparation(s) and trichrome stained smear. This test does not include testing for Crytosporidium parvum, Cyclospora, or Microsporidia. One negative specimen does not rule out the possibility of a parasitic infection. _ TESTING PERFORMED AT [facility]. ORIGINAL REPORT ON FILE IN LAB CONTAINS ADDITIONAL TEST SITE INFORMATION. _ Performing Labs 01: [address] [address] Dir: Irwin Cantu, PhD For inquiries, the physician may contact Lab: [phone] Ova/Parasite Exam NO OVA, CYSTS, OR PARASITES FOUND. OP Antimicrobial Vicky O P Antimicrobial Susceptibility Ova/Parasite Result 3 NO OVA, CYSTS, OR PARASITES FOUND. Ova/Parasite Result 4 O P Result 4: Ova/Parasite Result 2 O P Result 2: Ova/Parasite Result 1 1 Normal [facility] Comment on above: Performed By: #### L 801.1541, M100.7900, M600.5000 ####[facility] [address] [place], [place], [id number] [facility] LAB TEST Normal [facility] Comment on above: Order Comment: STOOL CULTURE Result Comment: ANKIT Smith CULTURE Salmonella/Shigella Screen Final Report Result 1 No Salmonella or Shigella recovered. Campylobacter Culture Final Report Result 1 No Campylobacter species isolated. E. coli Shiga Toxin EIA Negative TESTING PERFORMED AT [facility]. ORIGINAL REPORT ON FILE IN LAB CONTAINS ADDITIONAL TEST SITE INFORMATION. Performed By: #### L 801.1541, M100.7900, M600.5000 ####[facility] [address] [place], [address] Stool Occult Blood iFOBon STOB Negative Normal [facility] Comment on above: Performed By: #### L 801.1541, M100.7900, M600.5000 ####[facility] [address] [place], [address] Basic Metabolic Profile (BMP )on 09-11-2024 BUN/CRE 11.3 RATIO Normal 09-13 [facility] Comment on above: Order Comment: RICHARD COLIN WAS GIVEN STOOL KIT AND WILL RETURN WITH SAMPLE Performed By: #### L 500.2500 ####[facility] [address] [place], [address] CA,Total 9.4 mg/dL Normal 8.5-10.1 [facility] Comment on above: Order Comment: RICHARD COLIN WAS GIVEN STOOL KIT AND WILL RETURN WITH SAMPLE Performed By: #### L 500.2500 ####[facility] [address] [place], [address] Chloride [Moles/Vol] 105 mmol/L Normal 98-107 [facility] Comment on above: Order Comment: RICHARD COLIN WAS GIVEN STOOL KIT AND WILL RETURN WITH SAMPLE Performed By: #### L 500.2500 ####[facility] [address] [place], [address] CO2 [Moles/Vol] 26.0 mmol/L Normal 21.0-32.0 [facility] Comment on above: Order Comment: RICHARD COLIN WAS GIVEN STOOL KIT AND WILL RETURN WITH SAMPLE Performed By: #### L 500.2500 ####[facility] [address] [place], [address] Creatinine [Mass/Vol] 1.33 mg/dL High 0.70-1.30 [facility] Comment on above: Order Comment: RICHARD COLIN WAS GIVEN STOOL KIT AND WILL RETURN WITH SAMPLE Result Comment: The validity of the calculated GFR GFRAA in patients over 70 years has not been determined. Clinical correlation is essential. Performed By: #### L 500.2500 ####[facility] [address] [place], [address] EST GFR - AA 67 mL/min Normal >60 [facility] Comment on above: Order Comment: RICHARD COLIN WAS GIVEN STOOL KIT AND WILL RETURN WITH SAMPLE Result Comment: Afri can Uzbek GFR Calc Performed By: #### L 500.2500 ####[facility] [address] [place], [address] GAP 5 Normal 5-15 [facility] Comment on above: Order Comment: RICHARD COLIN WAS GIVEN STOOL KIT AND WILL RETURN WITH SAMPLE Performed By: #### L 500.2500 ####[facility] [address] [place], [address] GFR/1.73 sq M.predicted among non-blacks MDRD (S/P/Bld) [Vol rate/Area] 55 mL/min/{1.73_m2} Low >60 [facility] Comment on above: Order Comment: RICHARD COLIN WAS GIVEN STOOL KIT AND WILL RETURN WITH SAMPLE Result Comment: Non- GFR Calc Performed By: #### L 500.2500 ####[facility] [address] [place], [address] Glucose [Mass/Vol] 113 mg/dL High 74-106 [facility] Comment on above: Order Comment: RICHARD COLIN WAS GIVEN STOOL KIT AND WILL RETURN WITH SAMPLE Result Comment: Fast ing Glucose result from 100 to 125 mg/dL suggests IMPAIRED HOMEOSTASIS per A.D.A. criteria. Performed By: #### L 500.2500 ####[facility] [address] [place], [address] Potassium [Moles/Vol] 3.8 mmol/L Normal 3.5-5.1 [facility] Comment on above: Order Comment: RICHARD COLIN WAS GIVEN STOOL KIT AND WILL RETURN WITH SAMPLE Performed By: #### L 500.2500 ####[facility] [address] [place], [address] Sodium [Moles/Vol] 136 mmol/L Normal 136-145 [facility] Comment on above: Order Comment: RICHARD COLIN WAS GIVEN STOOL KIT AND WILL RETURN WITH SAMPLE Performed By: #### L 500.2500 ####[facility] [address] [place], [address] Urea nitrogen [Mass/Vol] 15 mg/dL Normal 7-18 [facility] Comment on above: Order Comment: RICHARD COLIN WAS GIVEN STOOL KIT AND WILL RETURN WITH SAMPLE Performed By: #### L 500.2500 ####[facility] [address] [place], [place], [address] 12 Lead EKG performed by [facility] on 07-30-2024 12 Lead EKG performed by [facility] [address] [place] [address] 12 Lead EKG performed by [facility] 07/30/24836 MR#: [id number] Acct: [id number] Name: BENITO WHITTINGTON Rep #: [id number] : 1945 78 From: Rashmi Fatima [employer] D[employer]OM[employer] D[employer] REAMER-C Attending Dr: Rashmi Fatima [employer]ER-C Status: DEP A JOSE CARLOS Ordering Dr: Rashmi Fatima [employer]ER-C Date: 07/30/24 Location: [facility] Sex: M C Admitted: [facility]/12 Lead EKG performed by [facility] ECG Report Interpretation El ectronic dual-chamber pacemaker -possibly demand type Pacemaker ECG, No further analysis Poor SNR (< 1) in leads I Electronically signed on 08/02/2024 at 19:29 by Clarke Roberts Software Version 8610 08/02/241931 Date Rashmi Fatima [employer]ER [employer]ER-C CC: Dr. Helen Lainez MD Date Dictated: 07/30/24836 Date Transcribed: 07/30/24836 Dry Cure Worker: KR Signed Normal [facility] BNP,B-Type NATRIURETIC PEPTI Diane 07-30-2024 Natriuretic peptide B (Bld) [Mass/Vol] 39.2 pg/mL Normal 0-100 [facility] Comment on above: Performed By: #### L 500.2500, L100.0100, L503.6620 ####[facility] [address] [place], [address] Basic Metabolic Profile (BMP )on 07-30-2024 BUN/CRE 12.6 RATIO Normal 10-20 [facility] Comment on above: Performed By: #### L 500.2500, L100.0100, L503.6620 ####[facility] [address] [place], [address] CA,Total 9.1 mg/dL Normal 8.5-10.1 [facility] Comment on above: Performed By: #### L 500.2500, L100.0100, L503.6620 ####[facility] [address] [place], [address] Chloride [Moles/Vol] 108 mmol/L High 98-107 [facility] Comment on above: Performed By: #### L 500.2500, L100.0100, L503.6620 ####[facility] [address] [place], [address] CO2 [Moles/Vol] 25.0 mmol/L Normal 21.0-32.0 [facility] Comment on above: Performed By: #### L 500.2500, L100.0100, L503.6620 ####[facility] [address] [place], [address] Creatinine [Mass/Vol] 1.59 mg/dL High 0.70-1.30 [facility] Comment on above: Result Comment: The validity of the calculated GFR GFRAA in patients over 70 years has not been determined. Clinical correlation is essential. Performed By: #### L 500.2500, L100.0100, L503.6620 ####[facility] [address] [place], [address] EST GFR - AA 54 mL/min Low >60 [facility] Comment on above: Result Comment: Afri can Uzbek GFR Calc Performed By: #### L 500.2500, L100.0100, L503.6620 ####[facility] [address] [place], [address] GAP 5 Normal 5-15 [facility] Comment on above: Performed By: #### L 500.2500, L100.0100, L503.6620 ####[facility] [address] [place], [address] GFR/1.73 sq M.predicted among non-blacks MDRD (S/P/Bld) [Vol rate/Area] 45 mL/min/{1.73_m2} Low >60 [facility] Comment on above: Result Comment: Non- GFR Calc Performed By: #### L 500.2500, L100.0100, L503.6620 ####[facility] [address] [place], [address] Glucose [Mass/Vol] 91 mg/dL Normal 74-106 [facility] Comment on above: Performed By: #### L 500.2500, L100.0100, L503.6620 ####[facility] [address] [place], [address] Potassium [Moles/Vol] 3.9 mmol/L Normal 3.5-5.1 [facility] Comment on above: Performed By: #### L 500.2500, L100.0100, L503.6620 ####[facility] [address] [place], [address] Sodium [Moles/Vol] 138 mmol/L Normal 136-145 [facility] Comment on above: Performed By: #### L 500.2500, L100.0100, L503.6620 ####[facility] [address] [place], [address] Urea nitrogen [Mass/Vol] 20 mg/dL High 7-18 [facility] Comment on above: Performed By: #### L 500.2500, L100.0100, L503.6620 ####[facility] [address] [place], [address] CBC W/Diff, Automatedon 09-0 RED CELL MORPH NORM C+C Normal NORM C C [facility] Comment on above: Performed By: #### L 500.2500, L100.0100, L503.6620 ####[facility] [address] [place], [address] PLT EST MOD DEC Normal ADEQ [facility] Comment on above: Performed By: #### L 500.2500, L100.0100, L503.6620 ####[facility] [address] [place], [address] SMEAR COMMENT SCANNED Normal [facility] Comment on above: Performed By: #### L 500.2500, L100.0100, L503.6620 ####[facility] [address] [place], [address] Cardiology Visit Reporton Cardiology Visit Report [facility] [address] [place] [address] OFFICE VISIT Date of Service: 07/30/24 MR#: [id number] Acct: [id number] Name: BENITO WHITTINGTON Adilia Rep #: [id number] : 1945 Provider: NERI butterfield Age/Sex: 78/M Location: [facility] Status: Signed [facility] History of Present Illness Details: This is a 78-year-old white male who presents today for an outpatient cardiovascular follow-up visit. He has a history of a non-CAD related cardiomyopathy, SVT, VT, ICD placement, MVP, hyperlipidemia, hypertension, and thoracic aortic aneurysm. His PFTs were normal from 11/2022. He underwent a generator change on 11/12/2023. From a cardiac standpoint, the patient is doing well. He denies any palpitations, chest pain, pressure or heaviness. He does acknowledge SOB with exertion and at rest. He states this is worsening. He denies Orthopnea, and PND. He does not have bleeding issues; no blood in urine, stool or nosebleeds. He does acknowledge fatigue. He denies myalgias, or claudication. He does not have edema, or sudden weight gain. He does acknowledge lightheadedness. He denies dizziness, syncopal or near syncopal episodes, and headaches. Intake Vital Signs 05/01/24 10:12 07/30/24 09:50 Height 6 ft 3 in 6 ft 3 in BP 128/67 H Blood Pressure Location Lt brachial Position Sitting Respiration 16 Pulse 98 Pulse Source NIBP Pulse Oximetry (%) 98 Oxygen Delivery Method room air Intake Visit Reasons: 3 M Hot Mill Worker Required: No Accompanied by: Self Is patient in pain?: No Allergies No Known Allergies Allergy (Verified 07/30/24 10:03) Medications ???Medication ???Instructions ???Recorded ???Confirmed ???Type vit C 250 mg-vit E 200 unit-zinc 1 cap PO BID 07/30/23 07/30/24 History ox 12.5 fr-pvihai-ufrfyn-zeax capsule (ICaps AREDS2) metoprolol succinate 25 mg 12.5 mg (1/2 x 25 mg) PO DAILY #45 10/15/23 07/30/24 Rx tablet,extended release 24 hr tabs simvastatin 20 mg tablet 20 mg PO QHS cholesterol #90 tabs 04/21/24 07/30/24 Rx mecobalamin (vitamin B12) 1,000 1,000 mcg PO DAILY 05/01/24 07/30/24 History mcg chewable tablet empagliflozin 25 mg tablet 12.5 mg (1/2 x 25 mg) PO DAILY #14 07/10/24 07/30/24 Rx (Jardiance) tabs sacubitril 97 mg-valsartan 103 mg 1 tab PO BID awaiting mail order 07/10/24 07/30/24 Rx tablet [facility] amiodarone 200 mg tablet 100 mg (1/2 x 200 mg) PO DAILY Pt 07/30/24 07/30/24 Rx awaiting mail in RX, he is OUT of medication #30 tabs apixaban 5 mg tablet (Eliquis) 5 mg PO BID #180 tabs 07/30/24 07/30/24 Rx cholecalciferol (vitamin D3) 1,250 1,250 mcg PO QMONTH 07/30/24 07/30/24 History mcg (50,000 unit) capsule Have you fallen in the past year?: No PFSH Medical History Essential hypertension Wears glasses Loose, teeth Ambulates with cane Arthritis Thoracic aortic aneurysm Syncope MVP (mitral valve prolapse) Gastric reflux Shortness of breath on exertion Cardiology follow-up encounter Pacemaker ICD (implantable cardioverter-defibrillator) in place Pre-op evaluation Long-term use of high-risk medication Near syncope Chest pain SVT (supraventricular tachycardia) Nonrheumatic mitral (valve) prolapse Premature ventricular contraction Colitis GERD (gastroesophageal reflux disease) Depression Anemia Hypokalemia Thoracic aortic aneurysm without rupture Cardiomyopathy Ventricular tachycardia Hyperlipidemia Hypertension Surgical History History of total left knee replacement History of bilateral cataract extraction Hx of atrioventricular node ablation History of partial nephrectomy (07/02/18) Presence of cardiac defibrillator History of tonsillectomy Family History Father Heart disease Sister Heart disease Brother Heart disease Social History household members: none Smoking Status: Former smoker how long ago did patient quit smokin years ago alcohol intake: never substance use type: does not use caffeine: Yes Type: coffee Number of servings: 2 ROS Const Const: Positive for fatigue; Negative for weakness, fever(s), headache(s), chills, frequent falls, weight gain or weight loss Eyes Eyes: Negative for blind spots, loss of peripheral vision, transient loss of vision, blurry vision, change in vision, double vision, floaters or tunnel vision ENT ENT: Negative for headache(s), dizziness, Nosebleed/epistaxis, balance problems or neck pain Cardio Chest Pain: No Palpitations: No Edema: None Muscle aches with walking: None Re (more content not included)... Normal [facility] CBC W/Diff, Automatedon 06-25 PLT EST MOD DEC Normal ADEQ [facility] Comment on above: Performed By: #### L 100.0100, L506.0400, L506.1000, L503.0105, L501.9520 ####[facility] [address] [place], [address] SMEAR COMMENT SCANNED Normal [facility] Comment on above: Performed By: #### L 100.0100, L506.0400, L506.1000, L503.0105, L501.9520 ####[facility] [address] [place], [address] T4 Free Directon 07-07-2024 T4 FREE DIRECT 1.14 ng/dL Normal 0.76-1.46 [facility] Comment on above: Order Comment: N Performed By: #### L 100.0100, L506.0400, L506.1000, L503.0105, L501.9520 ####[facility] [address] [place], [address] Thyroid Stim Hormone (TSH)on 07-07-2024 TSH 0.937 uIU/mL Normal 0.358-3.74 0 [facility] Comment on above: Order Comment: N Performed By: #### L 100.0100, L506.0400, L506.1000, L503.0105, L501.9520 ####[facility] [address] [place], [address] Vitamin B12on 07-07-2024 Cobalamin (Vitamin B12) [Mass/Vol] 733 pg/mL Normal 211-911 [facility] Comment on above: Performed By: #### L 100.0100, L506.0400, L506.1000, L503.0105, L501.9520 ####[facility] [address] [place], [address] Vitamin D,25 Hydroxyon 07-07 Vitamin D 25-OH 59.0 ng/mL Normal [facility] Comment on above: Result Comment: Laura min D 25(OH) Status Range Deficiency <20 ng/mL (50nmol/L) Insufficiency 20 - 30 ng/mL (50 - 75 nmol/L) Sufficiency 30 - 100 ng/mL (75 - 250 nmol/L) Toxicity >100 ng/mL (>250 nmol/L) Performed By: #### L 100.0100, L506.0400, L506.1000, L503.0105, L501.9520 ####[facility] [address] [facility] [place], [address] Stress Reporton 05-27-2024 Stress Report [facility] [address] [place] [address] MR#: [id number] Acct: [id number] Name: BENITO WHITTINGTON Rep #: [id number] : 1945 78 From: Clarke Roberts MD Primary Care: Dr. Helen Lainez MD Status: REG CLI Referring Dr: Rashmi Fatima NP [employer]-C Sex: M C Stress Test Report Pharmacologic myocardial perfusion stress test. 78-year-old man with a history of dyspnea Resting EKG demonstrates AV sequential pacing with a rate of 70 bpm. Resting blood pressure is 116/72 mmHg. 0.4 mg of regadenoson was infused per usual protocol followed by rapid intravenous saline flush injection. Continuous EKG monitoring was performed. The maximum heart rate was 78 bpm which was 54% of max impacted heart rate the maximum workload was 1 metabolic equivalent. At rest there were no ST or T wave changes noted to suggest ischemia and at peak infusion nonspecific ST changes were noted which did not meet the criteria for ischemia. No clinical angina is noted. The final blood pressure was 104/62 mmHg. Myocardial perfusion protocol. 11 point mCi of technetium 99m sestamibi was injected at rest. 0.4 mg of regadenoson was infused per usual protocol. At peak infusion 36 mCi of technetium 99m sestamibi was injected stress images were obtained stress and rest images were reconstructed and compared in the short axis vertical long and horizontal long axis. Gated images were also obtained. Perfusion SPECT analysis: Review of the stress images demonstrate normal uptake of tracer noted in all areas of the myocardium. The resting images similar demonstrated normal uptake of tracer noted in all areas of the myocardium. No areas of reversibility are noted to suggest ischemia and no previous infarct is noted. Gated SPECT analysis: The gated ejection fraction is 46%. Conclusion: Normal pharmacologic myocardial perfusion stress test. Mildly reduced ejection fraction. 05/27/24 1220 Date Clarke Roberts MD CC: NERI Fatima; Dr. Helen Lainez MD Date Dictated: 05/27/241218 Date Transcribed: 05/27/241218 Dry Cure Worker: CO Signed Normal [facility] Basic Metabolic Profile (BMP )on 05-20-2024 BUN/CRE 14.2 RATIO Normal 10-20 [facility] Comment on above: Order Comment: BMP-R OBERTSPSA-CHAKA Performed By: #### L 501.9910, L500.2500 ####[facility] [address] [place], [address] CA,Total 9.2 mg/dL Normal 8.5-10.1 [facility] Comment on above: Order Comment: BMP-R OBERTSPSA-CHAKA Performed By: #### L 501.9910, L500.2500 ####[facility] [address] [place], [address] Chloride [Moles/Vol] 109 mmol/L High 98-107 [facility] Comment on above: Order Comment: BMP-R OBERTSPSA-CHAKA Performed By: #### L 501.9910, L500.2500 ####[facility] [address] [place], [address] CO2 [Moles/Vol] 26.0 mmol/L Normal 21.0-32.0 [facility] Comment on above: Order Comment: BMP-R OBERTSPSA-CHAKA Performed By: #### L 501.9910, L500.2500 ####[facility] [address] [place], [address] Creatinine [Mass/Vol] 1.48 mg/dL High 0.70-1.30 [facility] Comment on above: Order Comment: BMP-R OBERTSPSA-CHAKA Result Comment: The validity of the calculated GFR GFRAA in patients over 70 years has not been determined. Clinical correlation is essential. Performed By: #### L 501.9910, L500.2500 ####[facility] [address] [place], [address] EST GFR - AA 59 mL/min Low >60 [facility] Comment on above: Order Comment: BMP-R OBERTSPSA-CHAKA Result Comment: Afri can Uzbek GFR Calc Performed By: #### L 501.9910, L500.2500 ####[facility] [address] [place], [address] GAP 5 Normal 5-15 [facility] Comment on above: Order Comment: BMP-R OBERTSPSA-CHAKA Performed By: #### L 501.9910, L500.2500 ####[facility] [address] [place], [address] GFR/1.73 sq M.predicted among non-blacks MDRD (S/P/Bld) [Vol rate/Area] 49 mL/min/{1.73_m2} Low >60 [facility] Comment on above: Order Comment: BMP-R OBERTSPSA-CHAKA Result Comment: Non- GFR Calc Performed By: #### L 501.9910, L500.2500 ####[facility] [address] [place], [address] Glucose [Mass/Vol] 107 mg/dL High 74-106 [facility] Comment on above: Order Comment: BMP-R OBERTSPSA-CHAKA Result Comment: Fast ing Glucose result from 100 to 125 mg/dL suggests IMPAIRED HOMEOSTASIS per A.D.A. criteria. Performed By: #### L 501.9910, L500.2500 ####[facility] [address] [place], [address] Potassium [Moles/Vol] 4.2 mmol/L Normal 3.5-5.1 [facility] Comment on above: Order Comment: BMP-R OBERTSPSA-CHAKA Performed By: #### L 501.9910, L500.2500 ####[facility] [address] [place], [address] Sodium [Moles/Vol] 140 mmol/L Normal 136-145 [facility] Comment on above: Order Comment: BMP-R OBERTSPSA-CHAKA Performed By: #### L 501.9910, L500.2500 ####[facility] [address] [place], [address] Urea nitrogen [Mass/Vol] 21 mg/dL High 7-18 [facility] Comment on above: Order Comment: BMP-R OBERTSPSA-CHAKA Performed By: #### L 501.9910, L500.2500 ####[facility] [address] [place], [address] PSA,Total - Annual Screenon 05-20-2024 PSA,TOT SCREEN 1.25 ng/mL Normal 0.00-4.00 [facility] Comment on above: Order Comment: BMP-R OBERTSPSA-CHAKA Result Comment: This test was performed using the TPSA assay method for the [employer] chemistry system. Values obtained with different assay methods cannot be used interchangably. When changing PSA assays in the course of monitoring a patient, additional sequential testing should be carried out to confirm baseline values. Performed By: #### L 501.9910, L500.2500 ####[facility] [address] [place], [address] [facility] 03-27-2024 [facility] HNO ID: [id number] Author: MARCO JAIME MD Service: Electrophysiology Author Type: Nurse Practitioner Type: Discharge Summary Filed: 03/29/2024 12:27 Note Text: Attestation signed by Marco Jaime MD at 03/29/2024 12:27 PM DISCHARGE SUMMARY PATIENT NAME: Benito Whittington Code Status: Not on file Highest Readmission Risk Score: 9 The 30 day readmissions risk score is derived from an internally validated risk model which evaluates patient level characteristics, utilization history, medication orders and lab results up until the day of discharge. Patients with a score of 40 or above are considered highest risk for readmission. Specific patient level drivers will be listed at the bottom of the summary. Admission Information Admission Information ADMIT DATE: 03/26/2024 DISCHARGE DATE: 03/27/2024 MY DOCTORS AND MEDICAL TEAM: [facility] Doctor: Marco Jaime Primary Care Provider: Helen Lainez MD My Medical Team Members: Treatment Team: Attending Provider: Marco Jaime MD MY CONDITION AT DISCHARGE: Stable REASON I WAS IN THE HOSPITAL: Extraction of Medtronic right ventricular ICD lead with reimplantation, continued use of Medtronic right atrial and left ventricular pacing leads and [place] [employer]IGHT [employer] PASSENGER AGENT-D generator, procedure performed by Dr. Jaime 03/26/2024. SUMMARY OF WHAT HAPPENED WHILE I WAS IN THE HOSPITAL: The patient underwent extraction of Medtronic right ventricular ICD lead with reimplantation, continued use of Medtronic right atrial and left ventricular pacing leads and [place] [employer] PASSENGER AGENT-D generator, procedure performed by Dr. Jaime 03/26/2024. There were no intraprocedural complications. The patient recovered in the cardiovascular intensive care unit where he was monitored overnight and discharged home. OTHER PROBLEMS/DIAGNOSIS: Principal Problem: Implanted defibrillator electrode lead fracture - The patient underwent extraction of Medtronic right ventricular ICD lead with reimplantation, continued use of Medtronic right atrial and left ventricular pacing leads and [place] [employer] PASSENGER AGENT-D generator, procedure performed by Dr. Jaime 03/26/2024. There were no intraprocedural complications. The patient did well overnight, telemetry demonstrates atrial paced-biventricular paced rhythm, rates in the 70s. Eliquis and Jardiance were held 3 days prior to procedure, Jardiance was restarted, he will continue to hold Eliquis for an additional 3 days, can restart 03/30/2024. Device check shows normal function of [employer]IGHT [employer]ASSENGER AGENT-D system. Chest x-ray demonstrates leads and device in appropriate position, no evidence of pneumothorax. He will have a wound check in 1 week with a nurse from Dr. Jaime's office. He will then follow-up with [facility] for his device check and subsequent follow-ups. We reviewed postprocedure instructions, medications and follow-up, patient verbalizes understanding. He is okay to be discharged, as discussed with Dr. Jaime. CHADS2-Vasc Score Breakdown 4 Total Score 2 Age >= 75 years old 1 History of hypertension 1 History of vascular disease Active Problems: Cardiac resynchronization therapy defibrillator (TRAVEL FREIGHT AND PASSENGER AGENT-D) in place S/P AV (atrioventricular) kyung ablation Persistent atrial fibrillation (HCC) Stroke risk Bradycardia Nonischemic cardiomyopathy (HCC) Left ventricular systolic dysfunction Resolved Problems: * No resolved hospital problems. * OPERATIONS PERFORMED WHILE IN THE HOSPITAL: Extraction of Medtronic right ventricular ICD lead with reimplantation, continued use of Medtronic right atrial and left ventricular pacing leads and [place] [employer] PASSENGER AGENT-D generator, procedure performed by Dr. Jaime 03/26/2024. IMPORTANT TEST/PROCEDURES: Chest x-ray -shows leads and device in appropriate position, no evidence of pneumothorax. Device check -shows normal function of TRAV[employer]IGHT [employer] PASSENGER AGENT-D system. Discharge Disposition Discharge Disposition: Home With Self Care Activity When You Leave the Hospital Lifting is restricted to:no more than 8 lbs for 6 weeks Left arm May drive 24 hours after discharged from hospital No baths or showers for one week Do not get left upper chest defibrillator site wet, do not submerge bilateral groins. No exercise for: six weeks, no lifting over head Left arm Diet Instructions Resume your pre-hospital diet For Pain When You Leave the Hospital Apply a covered cold pack to the area every two hours for two days 20 minutes at a time Use acetaminophen (Tylenol) as recommended on the bottle Wound/Surgical Site Care Any bruising and bumps should disappear within 3-4 days Avoid lotions or powders Check your wound every day Left upper chest TRAV[employer]IGHT [employer] PASSENGER AGENT-D site, right (more content not included)... Normal [facility] CNPNon 03-27-2024 EVELIN Telephone (AKBLAIRED) BENITO WHITTINGTON ([id number]) 1945 Date Time Provider Department 03/27/24 DENICE MARRUFO During your visit today, we recorded the following information about you: Denice Marrufo APRN.CNP 03/27/2024 12:15 PM Addendum Please arrange wound check in 1 week (phone call). Patient underwent right ventricular ICD lead extraction with reimplant of right ventricular ICD lead with Dr. Jaime 03/26/2024. He will then follow-up locally in [place]. He will be discharged today. Thank you. Denice Marrufo APRN.LOIN TRIMMER Allergies As of Date: 03/27/2024 (No Known Allergies) Date Reviewed: 03/27/2024 Reviewed by: Ganga Wing RN - Fully Assessed Reason for Visit: Wound Check [133] Prescriptions as of 04/01/2024 - apixaban (ELIQUIS) 5 mg tab(s) Take 1 tablet by mouth two times a day. Do not restart Eliquis until 03/30/2024. Patient should start on March 30, 2024. - acetaminophen (TYLENOL) 325 mg tablet Take 650 mg by mouth every 6 hours as needed for pain. - empagliflozin (JARDIANCE) 25 mg tablet Take 12.5 mg by mouth daily with breakfast. - lactulose 10 gram/15 mL (15 mL) soln Take 1 Tablespoonful by mouth two times a day. - sacubitril-valsartan (ENTRESTO) 97-103 mg tablet Take 1 tablet by mouth two times a day. - metoprolol succinate ER (TOPROL XL) 25 mg 24 hr tablet Take 12.5 mg by mouth once daily. - vit C/E/Zn/coppr/lutein/zeaxan (PRESERVISION AREDS-2 ORAL) Take 2 tablets by mouth once daily. - amiodarone (PACERONE) 200 mg tablet Take 200 mg by mouth once daily. - SIMVASTATIN 20 mg ORAL tablet Take 20 mg by mouth daily at bedtime. Problem List As Of Date 03/27/2024 Noted Resolved SCREENING MAL NEOP-COLON [Z12.11] 02/16/2009 BENIGN NEOPLASM LG BOWEL [D12.6] 02/16/2009 Pain in soft tissues of limb [M79.609] 01/23/2011 Other acquired deformity of toe [M20.5X9] 01/23/2011 Porokeratosis [Q82.8] 01/23/2011 Onychia and paronychia of toe [L03.039] 01/23/2011 Atrial flutter (HCC) [I48.92] 09/27/2019 Severe protein-calorie malnutrition (HCC) [E43] 09/28/2019 Cardiac resynchronization therapy defibrillator*09/30/2019 S/P AV (atrioventricular) kyung ablation [Z98.8*09/30/2019 Persistent atrial fibrillation (HCC) [I48.19] 11/12/2023 Atypical atrial flutter (HCC) [I48.4] 11/12/2023 At risk for stroke [Z91.89] 11/12/2023 Bradycardia [R00.1] 03/26/2024 Implanted defibrillator electrode lead fracture*03/26/2024 Nonischemic cardiomyopathy (HCC) [I42.8] 03/26/2024 Left ventricular systolic dysfunction (LVSD) [I*03/26/2024 Malfunction of implantable defibrillator ventri*03/27/2024 Encounter Status:Closed by DENICE MARRUFO on 03/27/24 Normal [facility] ICD CLINIC CHECKon AV Delay Adaptive Paced Minimum (ms) 200 ms [facility] AV Delay Adaptive Rate Maximum (bpm) 130 {beats}/min [facility] AV Delay Adaptive Rate Minimum (bpm) 90 {beats}/min [facility] AV Delay Adaptive Sensed Minimum (ms) 150 ms [facility] AV Delay Adaptive Status Medium [facility] AV Delay Paced (ms) 100 ms [facility] AV Delay Sensed (ms) 100 ms [facility] Cesar LV Pacing Amplitude (volts) 2.5 V [facility] Cesar LV Pacing Polarity BI [facility] Cesar LV Pacing Pulse Width (ms) 0.5 ms [facility] Cesar RA Pacing Amplitude (volts) 2.5 V [facility] Cesar RA Pacing Polarity BI [facility] Cesar RA Pacing Pulse Width (ms) 0.5 ms [facility] Cesar RA Sensing Amplitude (mvolts) 0.3 mV [facility] Cesar RA Sensing Blanking Period (ms) 80 ms [facility] Cesar RA Sensing Polarity BI [facility] Cesar RA Sensing Refractory Period (ms) 190 ms [facility] Cesar RV Pacing Amplitude (volts) 3.5 V [facility] Cesar RV Pacing Polarity BI [facility] Cesar RV Pacing Pulse Width (ms) 0.5 ms [facility] Cesar RV Sensing Amplitude (mvolts) 1.0 mV [facility] Cesar RV Sensing Blanking Period (ms) 44 ms [facility] Cesar RV Sensing Polarity BI [facility] Detection Configuration (Vent) 1 - Zone [facility] ICD FastVT DetectionStatus DISABLED [facility] ICD-AMS EPISODES 180 {beats}/min [facility] ICD-ATP Episodes (Vent) 0 [facility] ICD-Cesar RV Sensing Refractory Period (ms) 250 ms [facility] ICD-Device Mfg STJ [facility] ICD-FALLBACKRATE_BPM 70 {beats}/min [facility] ICD-Hysteresis Rate Off [facility] ICD-LEADIMPEDANCEATRIA L 400.0 ohm [facility] ICD-Percent Pacing (Atrial) 97.0 % [facility] ICD-Percent Pacing (Vent) 99.62 % [facility] ICD-PMT Intervention Atrial Pace [facility] ICD-PVC Intervention Off [facility] ICD-Rate Modulation Acceleration Reaction Fast [facility] ICD-Rate Modulation Deceleration Medium [facility] ICD-Rate Modulation [place] 8 [facility] ICD-Rate Modulation Threshold Auto (+0.0) [facility] ICD-Rhythm CHB. No R waves w/ r ate decreased [facility] ICD-Shocks Aborted (Vent) 0 [facility] WJI-IANJFT-WYVVPDFVC 0 [facility] ICD-SHOCKSABORTED 0 [facility] ICD-SHOCKSDELIVEREDVEN TRICULAR 0 [facility] ICD-Ventricular Fibrillation 0 [facility] Implant Date 11/12/2023 [facility] Implant Date 03/26/2024 [facility] Lead Impedance (LV) 325.0 ohm [facility] Lead Impedance (RV) 487.5 ohm [facility] Lead Impedance High Voltage 51.75 ohm [facility] Lead1 [facility] Lead2 [facility] Lead3 Mfg Medtronic [facility] Location RV [facility] Location LV [facility] Location RA [facility] Lower Rate (bpm) 70 {beats}/min [facility] Max Sensor Rate (bpm) 110 {beats}/min [facility] MDT_PROG_TACHY_ZONE_DE TECTIONS_STATUS ENABLED [facility] Model 3369-40C Quadra Assura MP [facility] Model 6935 Sprint Quattro Secure S [facility] Model 4798 Attain Stabilit y Quad MRI SureScan [facility] Model 5076-58 Capsurefix Novus [facility] Pacemaker Dependent? YES [facility] Pacing Mode DDDR [facility] Serial Number [id number] [facility] Serial Number [id number] [facility] Serial Number [id number] [facility] Serial Number [id number] [facility] Test Charge Time 7.375 [facility] Therapy Status (Vent) Enabled [facility] Thresh LV Capture Amplitude (volts) 1.25 V [facility] Thresh LV Capture Duration (ms) 0.5 ms [facility] Thresh RA Capture Amplitude (volts) 1.25 V [facility] Thresh RA Capture Duration (ms) 0.5 ms [facility] Thresh RA Sensing Amplitude (mvolts) 4.8 mV [facility] Thresh RV Capture Amplitude (VOLTS) 0.5 V [facility] Thresh RV Capture Duration (MS) 0.5 ms [facility] Thresh RV Sensing Amplitude (MVOLTS) 11.7 mV [facility] Tracking Rate (bpm) 130 {beats}/min [facility] VF Zone Detection Interval 280 ms [facility] VF Zone Therapy Configuration 1 ATP(s) + 6 Shock(s) [facility] ICD check multiple l ead biventricular system with programming. Patient ID x 2. ICD check 1st day post implant. Pressure drsg intact left pectoral area. Presenting rhythm AP/ Bi V pacing at 70 BPM. No VT/VF events. No mode switch events. Measurements stable. EGM's without noise. No changes made. Teaching completed. Follow up will continue in [place]. Dagoberto ZAYAS NOTE TO PROVIDERS: CARD Flowsheets contain detailed device programming and testing data. Paceart/Interrogation PDF can be found under CARDIAC DATA AND REPORT, Scanned Documents section. PACEART 03/27/2024 Formattin g of this note might be different from the original. ICD check multiple lead biventricular system with programming. Patient ID x 2. ICD check 1st day post implant. Pressure drsg intact left pectoral area. Presenting rhythm AP/ Bi V pacing at 70 BPM. No VT/VF events. No mode switch events. Measurements stable. EGM's without noise. No changes made. Teaching completed. Follow up will continue in [place]. Dagoberto ZAYAS NOTE TO PROVIDERS: CARD Flowsheets contain detailed device programming and testing data. Paceart/Interrogation PDF can be found under CARDIAC DATA AND REPORT, Scanned Documents section. [facility] AV Delay Adaptive Paced Minimum (ms) 200 ms [facility] AV Delay Adaptive Rate Maximum (bpm) 130 {beats}/min [facility] AV Delay Adaptive Rate Minimum (bpm) 90 {beats}/min [facility] AV Delay Adaptive Sensed Minimum (ms) 150 ms [facility] AV Delay Adaptive Status Medium [facility] AV Delay Paced (ms) 100 ms [facility] AV Delay Sensed (ms) 100 ms [facility] Cesar LV Pacing Amplitude (volts) 2.5 V [facility] Cesar LV Pacing Polarity BI [facility] Cesar LV Pacing Pulse Width (ms) 0.5 ms [facility] Cesar RA Pacing Amplitude (volts) 2.5 V [facility] Cesar RA Pacing Polarity BI [facility] Cesar RA Pacing Pulse Width (ms) 0.5 ms [facility] Cesar RA Sensing Amplitude (mvolts) 0.3 mV [facility] Cesar RA Sensing Blanking Period (ms) 80 ms [facility] Cesar RA Sensing Polarity BI [facility] Cesar RA Sensing Refractory Period (ms) 190 ms [facility] Cesar RV Pacing Amplitude (volts) 3.5 V [facility] Cesar RV Pacing Polarity BI [facility] Cesar RV Pacing Pulse Width (ms) 0.5 ms [facility] Cesar RV Sensing Amplitude (mvolts) 1.0 mV [facility] Cesar RV Sensing Blanking Period (ms) 44 ms [facility] Cesar RV Sensing Polarity BI [facility] Detection Configuration (Vent) 1 - Zone [facility] ICD FastVT DetectionStatus DISABLED [facility] ICD-AMS EPISODES 180 {beats}/min [facility] ICD-ATP Episodes (Vent) 0 [facility] ICD-Cesar RV Sensing Refractory Period (ms) 250 ms [facility] ICD-Device Mfg STJ [facility] ICD-FALLBACKRATE_BPM 70 {beats}/min [facility] ICD-Hysteresis Rate Off [facility] ICD-LEADIMPEDANCEATRIA L 400.0 ohm [facility] ICD-Percent Pacing (Atrial) 97.0 % [facility] ICD-Percent Pacing (Vent) 99.62 % [facility] ICD-PMT Intervention Atrial Pace [facility] ICD-PVC Intervention Off [facility] ICD-Rate Modulation Acceleration Reaction Fast [facility] ICD-Rate Modulation Deceleration Medium [facility] ICD-Rate Modulation [place] 8 [facility] ICD-Rate Modulation Threshold Auto (+0.0) [facility] ICD-Rhythm CHB. No R waves w/ r ate decreased [facility] ICD-Shocks Aborted (Vent) 0 [facility] [id number] 0 [facility] ICD-SHOCKSABORTED 0 [facility] ICD-SHOCKSDELIVEREDVEN TRICULAR 0 [facility] ICD-Ventricular Fibrillation 0 [facility] Implant Date 11/12/2023 [facility] Implant Date 03/26/2024 [facility] Lead Impedance (LV) 325.0 ohm [facility] Lead Impedance (RV) 487.5 ohm [facility] Lead Impedance High Voltage 51.75 ohm [facility] Lead1 [facility] Lead2 Mfg Medtronic [facility] Lead3 Mfg Medtronic [facility] Location RV [facility] Location LV [facility] Location RA [facility] Lower Rate (bpm) 70 {beats}/min [facility] Max Sensor Rate (bpm) 110 {beats}/min [facility] MDT_PROG_TACHY_ZONE_DE TECTIONS_STATUS ENABLED [facility] Model 3369-40C Quadra Assura MP [facility] Model 6935 Sprint Quattro Secure S [facility] Model 4798 Attain Stabilit y Quad MRI SureScan [facility] Model 5076-58 Capsurefix Novus [facility] Pacemaker Dependent? YES [facility] Pacing Mode DDDR [facility] Serial Number [id number] [facility] Serial Number [id number] [facility] Serial Number [id number] [facility] Serial Number [id number] [facility] Test Charge Time 7.375 [facility] Therapy Status (Vent) Enabled [facility] Thresh LV Capture Amplitude (volts) 1.25 V [facility] Thresh LV Capture Duration (ms) 0.5 ms [facility] Thresh RA Capture Amplitude (volts) 1.25 V [facility] Thresh RA Capture Duration (ms) 0.5 ms [facility] Thresh RA Sensing Amplitude (mvolts) 4.8 mV [facility] Thresh RV Capture Amplitude (VOLTS) 0.5 V [facility] Thresh RV Capture Duration (MS) 0.5 ms [facility] Thresh RV Sensing Amplitude (MVOLTS) 11.7 mV [facility] Tracking Rate (bpm) 130 {beats}/min [facility] VF Zone Detection Interval 280 ms [facility] VF Zone Therapy Configuration 1 ATP(s) + 6 Shock(s) [facility] ICD check multiple l ead biventricular system with programming. Patient ID x 2. ICD check 1st day post implant. Pressure drsg intact left pectoral area. Presenting rhythm AP/ Bi V pacing at 70 BPM. No VT/VF events. No mode switch events. Measurements stable. EGM's without noise. No changes made. Teaching completed. Follow up will continue in [place]. Dagoberto ZAYAS NOTE TO PROVIDERS: CARD Flowsheets contain detailed device programming and testing data. Paceart/Interrogation PDF can be found under CARDIAC DATA AND REPORT, Scanned Documents section. PACEART 03/27/2024 Formattin g of this note might be different from the original. ICD check multiple lead biventricular system with programming. Patient ID x 2. ICD check 1st day post implant. Pressure drsg intact left pectoral area. Presenting rhythm AP/ Bi V pacing at 70 BPM. No VT/VF events. No mode switch events. Measurements stable. EGM's without noise. No changes made. Teaching completed. Follow up will continue in [place]. Dagoberto ZAYAS NOTE TO PROVIDERS: CARD Flowsheets contain detailed device programming and testing data. Paceart/Interrogation PDF can be found under CARDIAC DATA AND REPORT, Scanned Documents section. [facility] NURSING PROGon 03-27-2024 NURSING PROG HNO ID: [id number] Author: GANGA WING RN Service: ? Author Type: Registered Nurse Type: Nursing Progress Note Filed: 03/27/2024 15:29 Note Text: Patient received discharge instructions, verbalizes understanding. PIVs removed intact. All patient belongings returned to patient. Patient left floor via wheelchair in stable condition to private vehicle. Normal [facility] No Panel Informationon 03-27 [facility] _ [facility] Implant Date 09/30/2019 [facility] BLANK _ [facility] Implant Date 09/30/2019 [facility] XR CHEST 2V FRONTAL/LATon XR CHEST 2V FRONTAL/LAT * * *Final Report* * * DATE OF EXAM: Mar 27 2024 9:44AM [id number] [id number] - XR CHEST 2V FRONTAL/LAT / PROCEDURE REASON: Other * * * * Physician Interpretation * * * * EXAMINATION: CHEST RADIOGRAPH (2 VIEW FRONTAL and LATERAL) CLINICAL HISTORY: Other, Rhythm device implantation MQ: XC2_6 EXAM DATE/TIME: 03/27/2024 9:44 AM COMPARISON: Chest radiographs 03/26/2024 and 10/01/2019. RESULT: Two frontal chest radiographs are submitted. Limitations: An arm overlying the anterior chest on the lateral radiograph. Lines, tubes, and devices: Left subclavian AICD. Overlying cardiac monitoring leads. Lungs and pleura: Underlying emphysematous changes with hyperinflation evident by flattening of the diaphragm. No consolidation. No pneumothorax. Biapical pleural thickening. No pleural effusion. Cardiomediastinal silhouette: Stable cardiomediastinal silhouette. Bones and soft tissues: Degenerative changes are present within the thoracic spine. IMPRESSION: No acute radiographic abnormality. A stat reading is made available at time of dictation as requested. Dry Cure Worker: PSCB Transcribe Date/Time: Mar 27 2024 1:15P Dictated by : SHIELA ARREDONDO MD This examination was interpreted and the report reviewed and electronically signed by: SHIELA ARREDONDO MD on Mar 27 2024 1:18PM EST [id number] [facility] ALLIED HEALTHon 03-26-2024 ALLIED HEALTH HNO ID: [id number] Author: MARGARITA FOWLER RT(R) Service: Radiology Author Type: Technologist Type: Allied Health Filed: 03/26/2024 14:05 Note Text: Radiology Service Progress Note PATIENT NAME: Benito Whittington DATE OF SERVICE: March 26, 2024 TIME: 2:05 PM PATIENT IDENTITY VERIFICATION COMPLETED USING TWO (2) IDENTIFIERS: Name and Date of confirmed by identification band. FALL SCREENING: Has the patient had 2 falls in the last year or 1 fall with injury or currently using an Ambulatory Assistive Device (Walker, Cane, Wheelchair, Crutches, etc.)? Inpatient: Screened on floor PATIENT GENDER DATA: Male PATIENT RELEVANT IMPLANT DATA REVIEWED: Not Applicable PATIENT PRESENTS WITH AN IMPLANTABLE OR ATTACHED MENTAL HEALTH AIDE: No RADIOLOGY DEPARTMENT: General X-ray: Exam(s) Completed: Chest X-Ray PERIPHERAL IV DATA: Not applicable SIGNED BY: RT Carmencita(R) March 26, 2024 2:05 PM [facility] ANES POSTPROC EVALon 024 ANES POSTPROC EVAL HNO ID: [id number] Author: JORY GUEVARA MD Service: Anesthesiology Author Type: Anesthesiologist Type: Anesthesia Postprocedure Evaluation Filed: 03/26/2024 13:27 Note Text: POST ANESTHESIA EVALUATION NOTE : 1945 Procedure Summary Date: 03/26/24 [facility] / [facility] Anesthesia Start: 841 Anesthesia Stop: 1322 Procedure: REMOVAL ELECTRODE(S) IMPLANTABLE DEFIBRILLATOR TRANSVENOUS EXTRACTION (Left) Diagnosis: Implanted defibrillator electrode lead fracture, initial encounter (Implanted defibrillator electrode lead fracture, initial encounter [T82.190A]) Surgeons: Marco Jaime MD Responsible Provider: Jory Guevara MD Anesthesia Type: general ASA Status: 4 Anesthesia Type: general Airway Type: ETT Last Vitals Vitals Value Taken Time BP 03/26/24 1326 Temp 03/26/24 1326 Pulse 70 03/26/24 1326 Resp 12 03/26/24 1326 SpO2 100 % 03/26/24 1326 Vitals shown include unfiled device data. Post Anesthesia Patient Status Patient Evaluation: ICU. PACU/ICU Patient Condition: stable. Anticipated Disposition: ICU planned admission. Neurological Status: aware and responsive. Pulmonary Status: breathing comfortably on supplemental oxygen Airway Control: returned to baseline unsupported. Cardiovascular Status: stable. Pain Management: clinically adequate Postoperative Hydration: acceptable. Intraoperative Events: no significant anesthesia events Post Operative Nausea/Vomiting Status: no significant post operative nausea or vomiting Recommendation: continue current plan of care. Anesthesia Observations No Documentation SIGNATURE: Jory Guevara MD PATIENT NAME: Benito Whittington DATE: March 26, 2024 TIME: 1:26 PM CSN: [id number] Normal [facility] ANES PRE-OPon 03-26-2024 ANES PRE-OP HNO ID: [id number] Author: JORY GUEVARA MD Service: Anesthesiology Author Type: Anesthesiologist Type: Anesthesia Preprocedure Evaluation Filed: 03/26/2024 08:26 Note Text: ANESTHESIOLOGY DAY OF SURGERY NOTE : 1945 Procedure Information Date/Time: 03/26/24 0745 Procedure: REMOVAL ELECTRODE(S) IMPLANTABLE DEFIBRILLATOR TRANSVENOUS EXTRACTION (Left) - re-implant BSX BIV ICD; subpec. Follows at [facility] ON 03/18 BY Geovanni MARRUFO APN PACU/CVICU [place] [facility] Surgeons: Marco Jaime MD Estimated body mass index is 19.37 kg/m? as calculated from the following: Height as of this encounter: 190.5 cm (6' 3). Weight as of this encounter: 70.3 kg (155 lb). Most recent hematocrit and potassium results: Hematocrit 46.0 03/26/2024 Potassium 3.6 03/26/2024 Relevant Problems CARDIO (+) Atrial flutter (HCC) (+) Atypical atrial flutter (HCC) (+) Persistent atrial fibrillation (HCC) 78M with afib- flutter, S/p ICD 2013, EF 30% I - PHYSICAL EVALUATION AIRWAY Patient intubated: No. Mallampati: I. TM distance: >3 FB. Neck ROM: full ROM without neurological symptoms. Mouth opening: adequate. Short neck: no. Thick neck: no DENTAL Dental findings: missing tooth/teeth. Dentures, upper: complete. II - ANESTHESIA PLAN ASA Score: 4 Anesthetic Plan: general Airway type: ETT The patient is not a current smoker. NPO Status: adequate Beta Merrick Administration of chronic beta merrick medication planned. Monitoring Plan Monitoring plan: standard ASA. Post Procedure Analgesic Plan Postoperative analgesic plan: parenteral or oral opioids. Informed Consent Anesthetic risks, benefits, alternatives, personnel and consent discussed: yes. Patient / Responsible Democrat agrees to proceed: yes Patient / Surrogate agrees to blood products: Yes Significant changes in the patient condition since the History and Physical, not otherwise documented in primary service progress note: no. Potential Anesthesia issues that may suggest increased risk of complications or contraindication to planned procedure: none. Vitals Value Taken Time BP 135/75 03/26/24 0724 Pulse 70 03/26/24723 Resp Temp 36.9 ?C (98.4 ?F) 03/26/24 0724 SpO2 95 % 03/26/24723 No current facility-administered medications on file as of 03/26/2024. Outpatient Medications as of 03/26/2024 Medication Sig - sacubitril-valsartan (ENTRESTO) 97-103 mg tablet Take 1 tablet by mouth two times a day. - metoprolol succinate ER (TOPROL XL) 25 mg 24 hr tablet Take 12.5 mg by mouth once daily. - vit C/E/Zn/coppr/lutein/zeaxan (PRESERVISION AREDS-2 ORAL) Take 2 tablets by mouth once daily. - amiodarone (PACERONE) 200 mg tablet Take 200 mg by mouth once daily. - SIMVASTATIN 20 mg ORAL tablet Take 20 mg by mouth daily at bedtime. - apixaban (ELIQUIS) 5 mg tab(s) Take 1 tablet by mouth two times a day. Continue holding Eliquis, restart 11/15/2023. I have interviewed and examined the patient. I have reviewed the medical record and/or the pre-anesthesia evaluation, pertinent labs, and test results. This contains updated information obtained within 48 hours of Surgery/Procedure. SIGNATURE: Jory Guevara MD PATIENT NAME: Benito Whittington DATE: March 26, 2024 TIME: 8:24 AM CSN: [id number] Normal [facility] Basic metabolic 2000 panelon 03-26-2024 Anion gap [Moles/Vol] 11 mmol/L Normal 9-18 [facility] Comment on above: Order Comment: Speci men Type: BLOOD SPECIMEN Ordering Facility: [facility] Address: [address] [place] [address] Performed By: #### 2 4321-2 #### [facility] CLIA [id number] [address] [place] [address] [place] Calcium [Mass/Vol] 9.3 mg/dL Normal 8.5-10.2 [facility] Comment on above: Order Comment: Speci men Type: BLOOD SPECIMEN Ordering Facility: [facility] Address: [address] [place] [address] Performed By: #### 2 4321-2 #### [facility] CLIA [id number] [address] [place] [address] [place] Chloride [Moles/Vol] 105 mmol/L Normal 97-105 [facility] Comment on above: Order Comment: Speci men Type: BLOOD SPECIMEN Ordering Facility: [facility] Address: [address] [place] [address] Performed By: #### 2 4321-2 #### [facility] CLIA [id number] [address] STATES OF [facility] CO2 [Moles/Vol] 25 mmol/L Normal 22-30 [facility] Comment on above: Order Comment: Speci men Type: BLOOD SPECIMEN Ordering Facility: [facility] Address: [address] [place] [address] Performed By: #### 2 4321-2 #### [facility] CLIA [id number] [address] Creatinine [Mass/Vol] 1.36 mg/dL High 0.73-1.22 [facility] Comment on above: Order Comment: Speci men Type: BLOOD SPECIMEN Ordering Facility: [facility] Address: [address] [place] [address] Performed By: #### 2 4321-2 #### [facility] CLIA [id number] [address] Creatinine and Glomerular filtration rate.predicted panel (S/P/Bld) 53 mL/min/1.73m??? Low >=60 [facility] Comment on above: Order Comment: Speci men Type: BLOOD SPECIMEN Ordering Facility: [facility] Address: [address] [place] [address] Result Comment: Lili mated Glomerular Filtration Rate (eGFR) is calculated using the 2020 CKD-EPI creatinine equation. This equation utilizes serum creatinine, sex, and age as parameters. The creatinine assay has traceable calibration to isotope dilution-mass spectrometry. Refer to KDIGO guidelines for clinical interpretation. In patients with unstable renal function, e.g. those with acute kidney injury, the eGFR may not accurately reflect actual GFR. Performed By: #### 2 4321-2 #### [facility] CLIA [id number] [address] OF [facility] Glucose [Mass/Vol] 96 mg/dL Normal 74-99 [facility] Comment on above: Order Comment: Speci men Type: BLOOD SPECIMEN Ordering Facility: [facility] Address: [address] [place] [address] Result Comment: The [place] [employer] (ADA) provides guidance for cutoff values for fasting glucose and random glucose. The ADA defines fasting as no caloric intake for at least 8 hours. Fasting plasma glucose results between 100 to 125 mg/dL indicate increased risk for diabetes (prediabetes). Fasting plasma glucose results greater than or equal to 126 mg/dL meet the criteria for diagnosis of diabetes. In the absence of unequivocal hyperglycemia, results should be confirmed by repeat testing. In a patient with classic symptoms of hyperglycemia or hyperglycemic crisis, random plasma glucose results greater than or equal to 200 mg/dL meet the criteria for diagnosis of diabetes. Reference: Standards of Medical Care in Diabetes 2016, [place] [employer]. Diabetes Care. 2016.39(Suppl 1). Performed By: #### 2 4321-2 #### [facility] CLIA [id number] [address] STATES OF [facility] Potassium [Moles/Vol] 3.6 mmol/L Low 3.7-5.1 [facility] Comment on above: Order Comment: [place] Type: BLOOD SPECIMEN Ordering Facility: [facility] Address: [address] [place] [address] Performed By: #### 2 4321-2 #### [facility] CLIA [id number] [address] Sodium [Moles/Vol] 141 mmol/L Normal 136-144 [facility] Comment on above: Order Comment: [place] Type: BLOOD SPECIMEN Ordering Facility: [facility] Address: [address] [place] [address] Performed By: #### 2 4321-2 #### [facility] CLIA [id number] [address] STATES [facility] Urea nitrogen [Mass/Vol] 20 mg/dL Normal 9-24 [facility] Comment on above: Order Comment: [place] Type: BLOOD SPECIMEN Ordering Facility: [facility] Address: [address] [place] [address] Performed By: #### 2 4321-2 #### [facility] CLIA [id number] [address] [place] CBC panel Auto (Bld)on 03-26 Erythrocyte distribution width (RBC) [Ratio] 12.8 % Normal 11.5-15.0 [facility] Comment on above: Order Comment: Speci men Type: BLOOD SPECIMEN Ordering Facility: [facility] Address: [address] [place] [address] Performed By: #### 5 8410-2 #### [facility] CLIA [id number] [address] OF [facility] Hematocrit (Bld) [Volume fraction] 46.0 % Normal 39.0-51.0 [facility] Comment on above: Order Comment: Speci men Type: BLOOD SPECIMEN Ordering Facility: [facility] Address: [address] [place] [address] Performed By: #### 5 8410-2 #### [facility] CLIA [id number] [address] OF [facility] Hemoglobin (Bld) [Mass/Vol] 15.1 g/dL Normal 13.0-17.0 [facility] Comment on above: Order Comment: Speci men Type: BLOOD SPECIMEN Ordering Facility: [facility] Address: [address] [place] [address] Performed By: #### 5 8410-2 #### [facility] CLIA [id number] [address] STATES OF [facility] MCH (RBC) [Entitic mass] 31.1 pg Normal 26.0-34.0 [facility] Comment on above: Order Comment: Speci men Type: BLOOD SPECIMEN Ordering Facility: [facility] Address: [address] [place] [address] Performed By: #### 5 8410-2 #### [facility] CLIA [id number] [address] [place] MCHC (RBC) [Mass/Vol] 32.8 g/dL Normal 30.5-36.0 [facility] Comment on above: Order Comment: Speci men Type: BLOOD SPECIMEN Ordering Facility: [facility] Address: [address] [place] [address] Performed By: #### 5 8410-2 #### [facility] CLIA [id number] [address] MCV (RBC) [Entitic vol] 94.7 fL Normal 80.0-100.0 [facility] Comment on above: Order Comment: Speci men Type: BLOOD SPECIMEN Ordering Facility: [facility] Address: [address] [place] [address] Performed By: #### 5 8410-2 #### [facility] CLIA [id number] [address] Nucleated RBC (Bld) [#/Vol] 10*3/uL Normal <0.01 [facility] Comment on above: Order Comment: Speci men Type: BLOOD SPECIMEN Ordering Facility: [facility] Address: [address] [place] [address] Performed By: #### 5 8410-2 #### [facility] CLIA [id number] [address] Platelet mean volume (Bld) [Entitic vol] 10.3 fL Normal 9.0-12.7 [facility] Comment on above: Order Comment: Speci men Type: BLOOD SPECIMEN Ordering Facility: [facility] Address: [address] [place] [address] Performed By: #### 5 8410-2 #### [facility] CLIA [id number] [address] Platelets (Bld) [#/Vol] 113 10*3/uL Low 150-400 [facility] Comment on above: Order Comment: Speci men Type: BLOOD SPECIMEN Ordering Facility: [facility] Address: [address] [place] [address] Result Comment: No c lot detected. Performed By: #### 5 8410-2 #### [facility] CLIA [id number] [address] OF [facility] RBC (Bld) [#/Vol] 4.86 10*6/uL Normal 4.20-6.00 [facility] Comment on above: Order Comment: Speci men Type: BLOOD SPECIMEN Ordering Facility: [facility] Address: [address] [place] [address] Performed By: #### 5 8410-2 #### [facility] CLIA [id number] [address] WBC (Bld) [#/Vol] 6.19 10*3/uL Normal 3.70-11.00 [facility] Comment on above: Order Comment: Speci men Type: BLOOD SPECIMEN Ordering Facility: [facility] Address: [address] [place] [address] Performed By: #### 5 8410-2 #### [facility] CLIA [id number] [address] CONFIRM BLOOD TYPEon 024 ABO B Normal [facility] Comment on above: Order Comment: Speci men Type: BLOOD SPECIMENOrdering Facility: [facility] Address: [address] [place] [address] Performed By: #### C ONABO ####[facility] BLO[facility] BANKCLIA [id number] [address] Rh Nom (Bld) Negative Normal [facility] Comment on above: Order Comment: Speci men Type: BLOOD SPECIMENOrdering Facility: [facility] Address: [address] [place] [address] Performed By: #### C ONABO ####[facility] BLOOD BANKCLIA [id number] [address] HISTORY PHYSICALon HISTORY PHYSICAL HNO ID: [id number] Author: MARCO JAIME MD Service: Electrophysiology Author Type: Physician Type: H&P Filed: 03/26/2024 13:00 Note Text: UPDATED HISTORY AND PHYSICAL EXAMINATION SERVICE DATE: 03/26/2024 SERVICE TIME: 0830 PHYSICAL EXAM MUST BE COMPLETED ON ADMISSION The History and Physical (completed in the past 30 days) has been reviewed and the patient has been examined. The contents accurately reflect the patient's condition with the following additions or revisions since the HANDP was completed. Examination indicates no changes. No acute distress, alert and oriented x3, comfortable, easy work of breathing, face symmetric, moving all extremities, skin warm and dry. Provisional Diagnosis/Treatment Plan: Procedure(s) (LRB): REMOVAL ELECTRODE(S) IMPLANTABLE DEFIBRILLATOR TRANSVENOUS EXTRACTION (Left) This HANDP can be found in the Electronic Medical Record. SIGNATURE: Marco Jaime MD PATIENT NAME: Benito Whittington DATE: March 26, 2024 TIME: 1:00 PM [facility] TYPE + SCREENon 03-26-2024 ABO B Normal [facility] Comment on above: Order Comment: Speci men Type: BLOOD SPECIMENOrdering Facility: [facility] Address: [address] [place] [address] Performed By: #### T SCR ####[facility] BLOOD BANKCLIA [id number] [address] HISTORICAL AB SCR STATUS Negative [facility] Comment on above: Order Comment: Speci men Type: BLOOD SPECIMENOrdering Facility: [facility] Address: [address] [place] [address] Performed By: #### T SCR ####[facility] BLOOD BANKCLIA [id number] [address] [place] Rh Nom (Bld) Negative [facility] Comment on above: Order Comment: Speci men Type: BLOOD SPECIMENOrdering Facility: [facility] Address: [address] [place] [address] Performed By: #### T SCR ####[facility] BLOOD BANKCLIA [id number] [address] TYPE AND SCREEN EXPIRATION 03/29/2024 23:59 Normal [facility] Comment on above: Order Comment: Speci men Type: BLOOD SPECIMENOrdering Facility: [facility] Address: [address] [place] [address] Performed By: #### T SCR ####[facility] BLOOD BANKCLIA [id number] [place] [id number] [place] XR CHEST 1V FRONTALon 2023 XR CHEST 1V FRONTAL * * *Final Report* * * DATE OF EXAM: Mar 26 2024 2:06PM AKX [id number] - XR CHEST 1V FRONTAL / PROCEDURE REASON: Pneumothorax * * * * Physician Interpretation * * * * EXAMINATION: CHEST RADIOGRAPH (SINGLE VIEW AP OR PA) CLINICAL HISTORY: Pneumothorax, Pneumothorax MQ: XC1_5 Comparison: 10/01/2019 RESULT: Lines, tubes, and devices: Left chest cardiac device with leads in the right atrium and ventricle and coronary sinus. EKG wires.. Lungs and pleura: Biapical pleural thickening/scarring. No pneumothorax or pleural effusion or gross focal consolidation. Chronic interstitial changes.. Somewhat nodular 7 mm density overlies the right lower lung Cardiomediastinal silhouette: Stable Other: . IMPRESSION: No acute radiographic abnormality. Somewhat nodular 7 mm density overlies the right lower lung, nonspecific. Recommend correlation to follow-up dedicated two-view chest x-ray for further assessment. ACTIONABLE RESULT: FOLLOW-UP Acuity: Actionable Findings: Thoracic-Other Routing Code: CT_1 Recommendation: XR Chest 2 view Time Frame: Additional evaluation as described in the impression COMMUNICATION: Results will be communicated with the ordering provider via [employer] staff message or phone message by [employer] within 2 business days of report finalization. --END OF FINDING-- Dry Cure Worker: PASQUALE Transcribe Date/Time: Mar 26 2024 2:26P Dictated by : SIENA AMIN MD This examination was interpreted and the report reviewed and electronically signed by: SIENA AMIN MD on Mar 26 2024 2:33PM EST [id number] ACTIONABLE Invalid Interpretation Code [facility] CNOVon 03-18-2024 CNOV Office Visit (SHWETA ERICKSON) BENITO WHITTINGTON ([id number]) 1945 M Date Time Provider Department 03/18/24 3:00 PM DENICE MARRUFO AGCARDPOB During your visit today, we recorded the following information about you: Pulse Blood pressure Weight Height 70/minute 127/72 70.3 kg 1.905 m Kiana Westbrook MA 03/18/2024 2:55 PM Signed Patient denies cardiac complaints or symptoms. Denice Marrufo APRN.CNP 03/18/2024 4:02 PM S[address] [facility] Cardiology Electrophysiology PRIMARY CARE PHYSICIAN: Helen Lainez [address] [place] [address] CHIEF COMPLAINT: Cardiovascular medicine follow-up for defibrillator and upcoming procedure. HISTORY OF PRESENT ILLNESS: Mr. Whittington is a 78 year old male who presents today for follow-up regarding defibrillator and upcoming procedure. The patient has a past medical history significant for essential hypertension, cardiomyopathy with severe LV systolic dysfunction, persistent atrial fibrillation/atypical atrial flutter, on oral anticoagulation, single-chamber ICD implanted 2013, upgrade to [employer] PASSENGER AGENT-D system in 2018 with concurrent AV node catheter ablation, PPG replacement in 2022, he was referred to Dr. Jaime for right ventricular lead noise resulting in pacing inhibition noted during device interrogation. Impedances and sensing have been stable. 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 He was seen by Dr. Jaime 02/20/2024, reported feeling reasonably well, experiences occasional dizziness. Had not had ICD shock, chest pain or syncope. Maintained on oral anticoagulation and amiodarone for history of atrial fibrillation. Echo in early 2022 showed LVEF 30% stress test 10/2021 showed apical scar with no reversibility and LVEF 31%. His device is a [employer] system with Medtronic RV, RA and LV leads. Devices in the subpectoral location due to low BMI. He was recommended to undergo right ventricular lead extraction/reimplantation, and instructed to hold anticoagulation 72 hours prior to procedure. Interval History: The patient presents today to update his history and physical prior to upcoming procedure with Dr. Jaime 03/26/2024. He reports feeling well at today's appointment, denies any recent illness or fevers. He does have some ongoing shortness of breath which he states is unchanged. He has intermittent dizziness which she attributes to the malfunctioning pacemaker lead, denies syncope. He denies chest discomfort, pain at the left upper chest ICD site or palpitations. I reminded him he will need to hold Eliquis 3 days prior to procedure, last dose will be 03/22/2024. After doing a full review of his medications, it was discovered he was recently started on Jardiance, he reports about the beginning of this year, I have instructed him to also begin holding the Jardiance 3 days prior to procedure with the last dose 03/22/2024. I have reminded him he will be notified between 2-5 PM the day prior to procedure, he will be n.p.o. after midnight, may take his medications with a sip of water in the morning. He is ready to proceed with right ventricular ICD lead extraction with reimplant, as scheduled with Dr. Jaime 03/26/2024. All questions answered to his apparent satisfaction. PAST MEDICAL HISTORY Diagnosis Date - Acid reflux - Allergy, unspecified not elsewhere classified - Aneurysm, thoracic aortic (HCC) - Arrhythmia - Arthritis neck - Atypical atrial flutter (HCC) 11/12/2023 - Benign neoplasm of colon - Cardiac resynchronization therapy defibrillator ([employer]ASSENGER [employer]ENT-D) in place - Chronic obstructive pulmonary disease (COPD) ([facility]) - Congenital anomalies of pancreas - Coronary artery disease - Essential hypertension - Hyperlipemia - ICD (implantable cardioverter-defibrillator) in place - Longstanding persistent atrial fibrillation (HCC) - MVP (mitral valve prolapse) - Other and unspecified hyperlipidemia - Other premature beats - Other specified forms of chronic ischemic heart disease - Persistent atrial fibrillation (HCC) 11/12/2023 - PMH - PAST MEDICAL HISTORY OF dilated cardiolyopathy - Snoring - Stroke risk 11/12/2023 - SVT (supraventricular tachycardia) ([facility]) - Syncope - VT (ventricular tachycardia) ([facility]) PAST SURGICAL HISTORY Procedure Laterality Date - AV KYUNG ABLATION 09/30/[address] Jaime at [facility] - CATARACT EXTRACTION HX Bilateral - COLONOSCOPY FLX DX W/COLLJ SPEC WHEN PFRMD 02/16/2009 Colonoscopy - COLONOSCOPY FLX DX W/COLLJ SPEC WHEN PFRMD 09/29/2010 [facility] COLONOS[facility] FLX DX W/COLLJ SPEC WHEN PFRMD 08/16/2014 Colonoscopy - TRAV[employer]GER AGENT-D/TRAVEL FREIGHT AND PASSENGER AGENT-P IMPLANT Left 09/30/2019 Upgrade single ICD to [employer]GER [employer]ENT-D with Dr. Barboza at [facility] - ESOPHAGOGASTRODUODENOSCOPY TRANSORAL DIAGNOSTIC 02/07/2015 EGD - ESO (more content not included)... Normal [facility] ECG B/O W INTERP (MED OFFICE )on 03-18-2024 AV dual paced rhythm with frequent PVCs, 74 bpm, [place] 190 ms, QRS 170 ms, QT/QTc 486/539 ms. [facility] CNPNon 03-10-2024 CNPN Telephone (SafeNetARDdondeEsta™ ) BENITO WHITTINGTON ([id number]) 1945 M Date Time Provider Department 03/10/24 AMRCO JAIMEHAGCARDPOB During your visit today, we recorded the following information about you: Zeenat Steen 03/10/2024 12:38 PM Signed Patient is scheduled for an Extraction/Reimplant on 03/[address] Jaime. The hospital will call the day before between 2-5pm with your arrival time. You should not eat or drink after midnight the day before the procedure. You will need a meals on wheels driver when released from the hospital and you will stay overnight for observation. You should continue to take medications as prescribed the morning of the procedure with just a sip of water but hold Eliquis x 72 hrs. HANDP update on 03/18 at 3pm with Sondra Marrufo [address] [place] [address] Spoke with Benito Whittington on March 10, 2024. Informed of instructions as stated above. Patient verbalized understanding. Kaz Son, CHANA 03/10/2024 1:03 PM Signed Pt's name has been added to [facility] procedure board. Kaz Cancino RN Allergies As of Date: 03/10/2024 (No Known Allergies) Date Reviewed: 02/20/2024 Reviewed by: Oma Cherry MA - Fully Assessed Reason for Visit: Preparations For Procedures [899] Prescriptions as of 03/10/2024 - apixaban (ELIQUIS) 5 mg tab(s) Take 1 tablet by mouth two times a day. Continue holding Eliquis, restart 11/15/2023. - sacubitril-valsartan (ENTRESTO) 97-103 mg tablet Take 1 tablet by mouth two times a day. - metoprolol succinate ER (TOPROL XL) 25 mg 24 hr tablet Take 12.5 mg by mouth once daily. - omega-3s/dha/epa/fish oil/D3 (VITAMIN-D + OMEGA-3 ORAL) Take by mouth. One tab once a week - vit C/E/Zn/coppr/lutein/zeaxan (PRESERVISION AREDS-2 ORAL) Take 2 tablets by mouth once daily. - amiodarone (PACERONE) 200 mg tablet Take 200 mg by mouth once daily. - SIMVASTATIN 20 mg ORAL tablet Take 20 mg by mouth daily at bedtime. Problem List As Of Date 03/10/2024 Noted Resolved SCREENING MAL NEOP-COLON [Z12.11] 02/16/2009 BENIGN NEOPLASM LG BOWEL [D12.6] 02/16/2009 Pain in soft tissues of limb [M79.609] 01/23/2011 Other acquired deformity of toe [M20.5X9] 01/23/2011 Porokeratosis [Q82.8] 01/23/2011 Onychia and paronychia of toe [L03.039] 01/23/2011 Atrial flutter (HCC) [I48.92] 09/27/2019 Severe protein-calorie malnutrition (HCC) [E43] 09/28/2019 Cardiac resynchronization therapy defibrillator*09/30/2019 S/P AV (atrioventricular) kyung ablation [Z98.8*09/30/2019 Persistent atrial fibrillation (HCC) [I48.19] 11/12/2023 Atypical atrial flutter (HCC) [I48.4] 11/12/2023 Stroke risk [Z91.89] 11/12/2023 Encounter Status:Closed by ZEENAT STEEN on 03/10/24 Normal [facility] Gabriel 02-20-2024 [facility] Office Visit (SHWETA POB) BENITO WHITTINGTON ([id number]) 1945 M Date Time Provider Department 02/20/24 11:20 AM MARCO JAIMEGCARDPOBradly During your visit today, we recorded the following information about you: Pulse Blood pressure Weight Height 71/minute 95/58 67.1 kg 1.905 m Oma Cherry MA 02/20/2024 12:22 PM Signed No cardiac complaints today. ENEDINA Kraus Sergey Aleksandrovich, MD 02/20/2024 12:22 PM Signed [facility] SECTION OF CARDIAC PACING and ELECTROPHYSIOLOGY OUTPATIENT VISIT DATE February 20, 2024 OUTPATIENT VISIT TYPE ESTABLISHED PRIMARY CARE PHYSICIAN: Helen Lainez [address] [place] [address] Referring physician: Anupam Reece MD, [place], [place]. HISTORY OF PRESENT ILLNESS: 78-year-old male with history of essential hypertension, cardiomyopathy with severe LV systolic dysfunction, persistent atrial fibrillation/atypical atrial flutter, and oral anticoagulation, single-chamber ICD implanted in 2013, upgrade to [employer]ENT-D in 2018 with concurrent AV node ablation, PPG replacement in 2022, referred for right ventricular lead noise resulting in pacing inhibition noted during recent interrogation. Impedances and sensing have been stable. 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 Mr. Whittington presents for an office visit. He reports feeling reasonably well, although has occasional dizziness. Denies ICD shocks, chest pain, or syncope. He is maintained on oral anticoagulation and on amiodarone for history of atrial fibrillation. According to the device interrogation, he was in atrial fibrillation till December 2023 and has been in sinus since then. Echo in early 2022 showed LVEF of 30%. The device is [employer] system with Medtronic RV, RA, and LV leads. Device is in the subpectoral location due to BMI of 19. ECG shows A-BiV paced rhythm at 75 beats minute. Pharmacologic nuclear stress test showed apical scar with no reversibility and EF of 31%. PAST MEDICAL HISTORY Diagnosis Date Acid reflux Allergy, unspecified not elsewhere classified Aneurysm, thoracic aortic (HCC) Arrhythmia Arthritis neck Atypical atrial flutter (HCC) 11/12/2023 Benign neoplasm of colon Cardiac resynchronization therapy defibrillator ([employer]AV[employer] AND PASSENGER AGENT-D) in place Chronic obstructive pulmonary disease (COPD) ([facility]) Congenital anomalies of pancreas Coronary artery disease Essential hypertension Hyperlipemia ICD (implantable cardioverter-defibrillator) in place Longstanding persistent atrial fibrillation ([facility]) MVP (mitral valve prolapse) Other and unspecified hyperlipidemia Other premature beats Other specified forms of chronic ischemic heart disease Persistent atrial fibrillation ([facility]) 11/12/2023 PMH - PAST MEDICAL HISTORY OF dilated cardiolyopathy Snoring Stroke risk 11/12/2023 SVT (supraventricular tachycardia) ([facility]) Syncope VT (ventricular tachycardia) ([facility]) MEDICATIONS: apixaban (ELIQUIS) 5 mg tab(s) Take 1 tablet by mouth two times a day. Continue holding Eliquis, restart 11/15/2023. sacubitril-valsartan (ENTRESTO) 97-103 mg tablet Take 1 tablet by mouth two times a day. metoprolol succinate ER (TOPROL XL) 25 mg 24 hr tablet Take 12.5 mg by mouth once daily. vit C/E/Zn/coppr/lutein/zeaxan (PRESERVISION AREDS-2 ORAL) Take 2 tablets by mouth once daily. amiodarone (PACERONE) 200 mg tablet Take 200 mg by mouth once daily. SIMVASTATIN 20 mg ORAL tablet Take 20 mg by mouth daily at bedtime. omega-3s/dha/epa/fish oil/D3 (VITAMIN-D + OMEGA-3 ORAL) Take by mouth. One tab once a week (Patient not taking: Reported on 02/20/2024) Review of Systems Constitutional: Negative for fatigue. HENT: Negative for hearing loss. Respiratory: Positive for shortness of breath. Cardiovascular: Negative for chest pain and palpitations. Gastrointestinal: Negative for abdominal pain. Endocrine: Negative for cold intolerance. Genitourinary: Negative for hematuria. Skin: Negative for pallor. Neurological: Negative for syncope. Psychiatric/Behavioral: The patient is not nervous/anxious. PHYSICAL EXAMINATION: BP 95/58 (BP Site: Left Arm, BP Position: Sitting, BP Cuff Size: Regular Adult) Pulse 71 Ht 6' 3 (1.905 m) Wt 148 lb (67.1 kg) SpO2 94% BMI 18.50 kg/m? BP w/Orthostatic Vitals Date and Time Orthostatic BP Orthostatic Pulse BP Pulse BP Position BP Site BP Cuff Size 02/20/24 1050 -- -- 95/58 71 Sitting Left Arm Regular Adult Physical Exam Constitutional: Appearance: Normal appearance. HENT: Head: Normocephalic and atraumatic. Eyes: Conjunctiva/sclera: Conjunctivae normal. Cardiovascular: Rate and Rhythm: Normal rate and regular rhythm. Comments: Device prominent in the pocket. Pulmonary: Effort: Pulm (more content not included)... Normal [facility] Absolute lymphocyte countOrd ered By: ED PROVIDER on 02-07-2024 Lymphocytes Auto (Unsp spec) [#/Vol] 1.04 10*3/uL 0.83-4.51 [facility] Activated partial thrombopla stin time (aPTT) in platelet poor plasma by coagulation aOrdered By: ED PROVIDER on 02-07-2024 aPTT Coag (PPP) [Time] 43.0 s 24.1-36.2 [facility] Automated lymphocyte count a s percentage of total leukocytesOrdered By: ED PROVIDER on 02-07-2024 Lymphocytes/100 WBC Auto (Unsp spec) 18.5 % 19-41 [facility] Basophil percentageOrdered B y: ED PROVIDER on 02-07-2024 Basophils/100 WBC (Bld) 1.4 % 0-1 [facility] Chloride [Moles/Vol] 108 mmol/L 98-107 [facility] Eosinophils/100 WBC (Bld) 0.9 % 0-5 [facility] Glucose [Mass/Vol] 91 mg/dL 74-106 [facility] Hemoglobin (Bld) [Mass/Vol] 14.5 g/dL 13.0-16.5 [facility] Monocytes/100 WBC (Bld) 7.3 % 0-10 [facility] Neutrophils (Bld) [#/Vol] 4.0 10*3/uL 2.0-7.7 [facility] Neutrophils/100 WBC (Bld) 71.9 % 47-70 [facility] Potassium [Moles/Vol] 4.3 mmol/L 3.5-5.1 [facility] Sodium [Moles/Vol] 139 mmol/L 136-145 [facility] WBC (Bld) [#/Vol] 5.6 10*3/uL 4.4-11.0 [facility] Determination of erythrocyte mean corpuscular volume (MCV)Ordered By: ED PROVIDER on 02-07-2024 MCV (RBC) [Entitic vol] 95.6 fL 80-94 [facility] Erythrocyte distribution wid th ratioOrdered By: ED PROVIDER on 02-07-2024 Erythrocyte distribution width (RBC) [Ratio] 13.2 % 11.6-14.6 [facility] Erythrocyte distribution wid th standard deviationOrdered By: ED PROVIDER on 02-07-2024 Erythrocyte distribution width (RBC) [Entitic vol] 46.7 fL 35.1-43.9 [facility] Hematocrit Auto (Bld) [Volum e fraction]Ordered By: ED PROVIDER on 02-07-2024 Hematocrit (Bld) [Volume fraction] 45.3 % 40-54 [facility] Immature granulocytes/100 WB C Auto (Bld)Ordered By: ED PROVIDER on 02-07-2024 Immature granulocytes/100 WBC (Bld) 0.000 % 0.0-0.9 [facility] Comment on above: IG% - Immature Granu locytes (promyelocytes, myelocytes and metamyelocytes) > 1% indicates that a LEFT SHIFT is Present. Laboratory - Chemistry and C hemistry - challengeOrdered By: ED PROVIDER on 02-07-2024 CO2 [Moles/Vol] 26.0 mmol/L 21.0-32.0 [facility] Urea nitrogen/Creatinine [Mass ratio] 13.2 mg/mg 10-20 [facility] Laboratory - CoagulationOrde red By: ED PROVIDER on 02-07-2024 INR Coag (Bld) [Relative time] 1.4 {INR} [facility] PT Coag (PPP) [Time] 17.2 s 11.7-14.9 [facility] Laboratory - Hematology and Cell countsOrdered By: ED PROVIDER on 02-07-2024 MCH (RBC) [Entitic mass] 30.6 pg 27.0-32.0 [facility] MCHC (RBC) [Mass/Vol] 32.0 g/dL 32-36 [facility] Nucleated RBC/100 WBC (Bld) [Ratio] 0 % 0-5 [facility] Platelet mean volume (Bld) [Entitic vol] 10.1 fL 6.2-12.0 [facility] Platelets (Bld) [#/Vol] 102 10*3/uL 150-450 [facility] No Panel InformationOrdered By: ED PROVIDER on 02-07-2024 Estimated Creatinine Clearance Calc 41.14 ml/min [facility] Estimated GFR (MDRD) Amer 61 mL/min >60 [facility] Comment on above: GFR Calc Estimated GFR (MDRD) Non-Af Amer 50 mL/min >60 [facility] Comment on above: Non- GFR Calc No Panel InformationOrdered By: Liam Carrillo on 02-07-2024 Troponin I High Sensitivity 6 pg/mL 3.0-78.0 [facility] Comment on above: Please Note: New Shelbi t Units and Gender Specific Reference Ranges. For more information see Policy Stat Procedure [place] High Sensitivity Troponin (TNIH) and attachments. RBC Auto (Bld) [#/Vol]Ordere d By: ED PROVIDER on 02-07-2024 RBC (Bld) [#/Vol] 4.74 10*6/uL 4.6-6.2 [facility] Serum or plasma calcium falguni urement (mass/volume)Ordered By: ED PROVIDER on 02-07-2024 Calcium [Mass/Vol] 9.2 mg/dL 8.5-10.1 [facility] Serum or plasma creatinine m easurement (mass/volume)Ordered By: ED PROVIDER on 02-07-2024 Creatinine [Mass/Vol] 1.44 mg/dL 0.70-1.30 [facility] Comment on above: The validity of the calculated GFR & GFRAA in patients over 70 years has not been determined. Clinical correlation is essential. Serum or plasma urea nitroge n measurement (mass/volume)Ordered By: ED PROVIDER on 02-07-2024 Urea nitrogen [Mass/Vol] 19 mg/dL 7-18 [facility] Thin prep Papanicolaou smear with manual screeningOrdered By: ED PROVIDER on 02-07-2024 Thin prep Papanicolaou smear with manual screening 5 5-15 [facility] Absolute lymphocyte countOrd ered By: Rashmi Fatima on 02-04-2024 Lymphocytes Auto (Unsp spec) [#/Vol] 1.32 10*3/uL 0.83-4.51 [facility] Automated lymphocyte count a s percentage of total leukocytesOrdered By: Rashmi Fatima on 02-04-2024 Lymphocytes/100 WBC Auto (Unsp spec) 25.0 % 19-41 [facility] Basophil percentageOrdered B y: Rashmi Fatima on 02-04-2024 Basophils/100 WBC (Bld) 1.1 % 0-1 [facility] Chloride [Moles/Vol] 109 mmol/L 98-107 [facility] Eosinophils/100 WBC (Bld) 3.6 % 0-5 [facility] Glucose [Mass/Vol] 168 mg/dL 74-106 [facility] Comment on above: Fasting Glucose resu lt greater than or equal to 126 mg/dL suggests DIABETES MELLITUS per A.D.A. criteria. Hemoglobin (Bld) [Mass/Vol] 13.5 g/dL 13.0-16.5 [facility] Monocytes/100 WBC (Bld) 8.7 % 0-10 [facility] Neutrophils (Bld) [#/Vol] 3.2 10*3/uL 2.0-7.7 [facility] Neutrophils/100 WBC (Bld) 61.2 % 47-70 [facility] Potassium [Moles/Vol] 3.8 mmol/L 3.5-5.1 [facility] Sodium [Moles/Vol] 140 mmol/L 136-145 [facility] WBC (Bld) [#/Vol] 5.3 10*3/uL 4.4-11.0 [facility] Determination of erythrocyte mean corpuscular volume (MCV)Ordered By: Rashmi Fatima on 02-04-2024 MCV (RBC) [Entitic vol] 97.3 fL 80-94 [facility] [facility] Erythrocyte distribution wid th ratioOrdered By: Rashmi Fatima on 02-04-2024 Erythrocyte distribution width (RBC) [Ratio] 13.3 % 11.6-14.6 [facility] Erythrocyte distribution wid th standard deviationOrdered By: Rashmi Fatima on 02-04-2024 Erythrocyte distribution width (RBC) [Entitic vol] 47.9 fL 35.1-43.9 [facility] Hematocrit Auto (Bld) [Volum e fraction]Ordered By: Rashmi Fatima on 02-04-2024 Hematocrit (Bld) [Volume fraction] 43.0 % 40-54 [facility] Immature granulocytes/100 WB C Auto (Bld)Ordered By: Rashmi Fatima on 02-04-2024 Immature granulocytes/100 WBC (Bld) 0.400 % 0.0-0.9 [facility] Comment on above: IG% - Immature Granu locytes (promyelocytes, myelocytes and metamyelocytes) > 1% indicates that a LEFT SHIFT is Present. Laboratory - Chemistry and C hemistry - challengeOrdered By: Rashmi Fatima on 02-04-2024 CO2 [Moles/Vol] 27.0 mmol/L 21.0-32.0 [facility] Urea nitrogen/Creatinine [Mass ratio] 14.4 mg/mg 10-20 [facility] Laboratory - Hematology and Cell countsOrdered By: Rashmi Fatima on 02-04-2024 MCH (RBC) [Entitic mass] 30.5 pg 27.0-32.0 [facility] MCHC (RBC) [Mass/Vol] 31.4 g/dL 32-36 [facility] Nucleated RBC/100 WBC (Bld) [Ratio] 0 % 0-5 [facility] Platelet mean volume (Bld) [Entitic vol] 9.9 fL 6.2-12.0 [facility] Platelets (Bld) [#/Vol] 106 10*3/uL 150-450 [facility] No Panel InformationOrdered By: Rashmi Fatima on 02-04-2024 Estimated GFR (MDRD) Amer 60 mL/min >60 [facility] Comment on above: GFR Calc Estimated GFR (MDRD) Non-Af Amer 50 mL/min >60 [facility] Comment on above: Non- GFR Calc RBC Auto (Bld) [#/Vol]Ordere d By: Rashmi Fatima on 02-04-2024 RBC (Bld) [#/Vol] 4.42 10*6/uL 4.6-6.2 [facility] Serum or plasma calcium falguni urement (mass/volume)Ordered By: Rashmi Fatima on 02-04-2024 Calcium [Mass/Vol] 8.8 mg/dL 8.5-10.1 [facility] Serum or plasma creatinine m easurement (mass/volume)Ordered By: Rashmi Fatima on 02-04-2024 Creatinine [Mass/Vol] 1.46 mg/dL 0.70-1.30 [facility] Comment on above: The validity of the calculated GFR & GFRAA in patients over 70 years has not been determined. Clinical correlation is essential. Serum or plasma urea nitroge n measurement (mass/volume)Ordered By: Rashmi Fatima on 02-04-2024 Urea nitrogen [Mass/Vol] 21 mg/dL 7-18 [facility] Thin prep Papanicolaou smear with manual screeningOrdered By: Rashmi Fatima on 02-04-2024 Thin prep Papanicolaou smear with manual screening 4 5-15 [facility] Basophil percentageOrdered B y: Rashmi Fatima on 01-17-2024 Chloride [Moles/Vol] 108 mmol/L 98-107 [facility] Glucose [Mass/Vol] 108 mg/dL 74-106 [facility] Comment on above: Fasting Glucose resu lt from 100 to 125 mg/dL suggests IMPAIRED HOMEOSTASIS per A.D.A. criteria. Potassium [Moles/Vol] 4.2 mmol/L 3.5-5.1 [facility] Sodium [Moles/Vol] 141 mmol/L 136-145 [facility] Laboratory - Chemistry and C hemistry - challengeOrdered By: Rashmi Fatima on 01-17-2024 CO2 [Moles/Vol] 27.0 mmol/L 21.0-32.0 [facility] Urea nitrogen/Creatinine [Mass ratio] 18.8 mg/mg 10-20 [facility] No Panel InformationOrdered By: Rashmi Fatima on 01-17-2024 Estimated GFR (MDRD) Amer 61 mL/min >60 [facility] Comment on above: GFR Calc Estimated GFR (MDRD) Non-Af Amer 50 mL/min >60 [facility] Comment on above: Non- GFR Calc Serum or plasma calcium falguni urement (mass/volume)Ordered By: Rashmi Fatima on 01-17-2024 Calcium [Mass/Vol] 9.5 mg/dL 8.5-10.1 [facility] Serum or plasma creatinine m easurement (mass/volume)Ordered By: Rashmi Fatima on 01-17-2024 Creatinine [Mass/Vol] 1.44 mg/dL 0.70-1.30 [facility] Comment on above: The validity of the calculated GFR & GFRAA in patients over 70 years has not been determined. Clinical correlation is essential. Serum or plasma urea nitroge n measurement (mass/volume)Ordered By: Rashmi Fatima on 01-17-2024 Urea nitrogen [Mass/Vol] 27 mg/dL 7-18 [facility] Thin prep Papanicolaou smear with manual screeningOrdered By: Rashmi Fatima on 01-17-2024 Thin prep Papanicolaou smear with manual screening 6 5-15 [facility] Absolute lymphocyte countOrd ered By: Rashmi Fatima on 01-09-2024 Lymphocytes Auto (Unsp spec) [#/Vol] 1.69 10*3/uL 0.83-4.51 [facility] Automated lymphocyte count a s percentage of total leukocytesOrdered By: Rashmi Fatima on 01-09-2024 Lymphocytes/100 WBC Auto (Unsp spec) 25.6 % 19-41 [facility] Basophil percentageOrdered B y: Rashmi Fatima on 01-09-2024 Basophils/100 WBC (Bld) 1.2 % 0-1 [facility] Chloride [Moles/Vol] 111 mmol/L 98-107 [facility] Eosinophils/100 WBC (Bld) 2.1 % 0-5 [facility] Glucose [Mass/Vol] 106 mg/dL 74-106 [facility] Comment on above: Fasting Glucose resu lt from 100 to 125 mg/dL suggests IMPAIRED HOMEOSTASIS per A.D.A. criteria. Hemoglobin (Bld) [Mass/Vol] 14.2 g/dL 13.0-16.5 [facility] Monocytes/100 WBC (Bld) 8.6 % 0-10 [facility] Neutrophils (Bld) [#/Vol] 4.1 10*3/uL 2.0-7.7 [facility] Neutrophils/100 WBC (Bld) 62.2 % 47-70 [facility] Potassium [Moles/Vol] 3.8 mmol/L 3.5-5.1 [facility] Sodium [Moles/Vol] 140 mmol/L 136-145 [facility] WBC (Bld) [#/Vol] 6.6 10*3/uL 4.4-11.0 [facility] Determination of erythrocyte mean corpuscular volume (MCV)Ordered By: Rashmi Fatima on 01-09-2024 MCV (RBC) [Entitic vol] 97.4 fL 80-94 [facility] Erythrocyte distribution wid th ratioOrdered By: Rashmi Fatima on 01-09-2024 Erythrocyte distribution width (RBC) [Ratio] 14.3 % 11.6-14.6 [facility] Erythrocyte distribution wid th standard deviationOrdered By: Rashmi Fatima on 01-09-2024 Erythrocyte distribution width (RBC) [Entitic vol] 51.1 fL 35.1-43.9 [facility] Hematocrit Auto (Bld) [Volum e fraction]Ordered By: Rashmi Fatima on 01-09-2024 Hematocrit (Bld) [Volume fraction] 45.1 % 40-54 [facility] Immature granulocytes/100 WB C Auto (Bld)Ordered By: Rashmi Fatima on 01-09-2024 Immature granulocytes/100 WBC (Bld) 0.300 % 0.0-0.9 [facility] Comment on above: IG% - Immature Granu locytes (promyelocytes, myelocytes and metamyelocytes) > 1% indicates that a LEFT SHIFT is Present. Laboratory - Chemistry and C hemistry - challengeOrdered By: Rashmi Fatima on 01-09-2024 CO2 [Moles/Vol] 29.0 mmol/L 21.0-32.0 [facility] Natriuretic peptide B (Bld) [Mass/Vol] 174.3 pg/mL 0-100 [facility] Urea nitrogen/Creatinine [Mass ratio] 14.1 mg/mg 10-20 [facility] Laboratory - Hematology and Cell countsOrdered By: Rashmi Fatima on 01-09-2024 MCH (RBC) [Entitic mass] 30.7 pg 27.0-32.0 [facility] MCHC (RBC) [Mass/Vol] 31.5 g/dL 32-36 [facility] Nucleated RBC/100 WBC (Bld) [Ratio] 0 % 0-5 [facility] Platelet mean volume (Bld) [Entitic vol] 10.4 fL 6.2-12.0 [facility] Platelets (Bld) [#/Vol] 128 10*3/uL 150-450 [facility] No Panel InformationOrdered By: Rashmi Fatima on 01-09-2024 Estimated GFR (MDRD) Amer 62 mL/min >60 [facility] Comment on above: GFR Calc Estimated GFR (MDRD) Non-Af Amer 51 mL/min >60 [facility] Comment on above: Non- GFR Calc RBC Auto (Bld) [#/Vol]Ordere d By: Rashmi Fatima on 01-09-2024 RBC (Bld) [#/Vol] 4.63 10*6/uL 4.6-6.2 [facility] Serum or plasma calcium falguni urement (mass/volume)Ordered By: Rashmi Fatima on 01-09-2024 Calcium [Mass/Vol] 8.9 mg/dL 8.5-10.1 [facility] Serum or plasma creatinine m easurement (mass/volume)Ordered By: Rashmi Fatima on 01-09-2024 Creatinine [Mass/Vol] 1.42 mg/dL 0.70-1.30 [facility] Comment on above: The validity of the calculated GFR & GFRAA in patients over 70 years has not been determined. Clinical correlation is essential. Serum or plasma thyroid stim ulating hormone (TSH) measurement (units/volume)Ordered By: Rashmi Fatima on 01-09-2024 TSH Qn 1.54 uIU/mL 0.358-3.74 [facility] Serum or plasma urea nitroge n measurement (mass/volume)Ordered By: Rashmi Fatima on 01-09-2024 Urea nitrogen [Mass/Vol] 20 mg/dL 7-18 [facility] Thin prep Papanicolaou smear with manual screeningOrdered By: Rashmi Fatima on 01-09-2024 Thin prep Papanicolaou smear with manual screening 0 5-15 [facility] CNNURSEon 11-19-2023 CNNURSE Nurse Visit (AGCARDP OB) BENITO WHITTINGTON ([id number]) 1945 M Date Time Provider Department 11/19/23 9:00 AM NURSE CARD SHE[facility] AGCARDPO[facility] During your visit today, we recorded the following information about you: Temperature Blood pressure 97.3 degrees 98/56 Kaz Cancino RN 11/19/2023 9:04 AM Signed Pt comes in today for wound check. [...] effexor if dizziness persists. Pt voices understanding. Kaz Cancino RN Referring Provider: SELF [200] Allergies As of Date: 11/19/2023 (No Known Allergies) Date Reviewed: 11/12/2023 Reviewed by: Charlee Gant RN - Fully Assessed Reason for Visit: Wound Check [133] Primary Visit Diagnosis:ICD (implantable cardioverter-defibrillator) in place [Z95.810] Prescriptions as of 01/02/2024 - apixaban (ELIQUIS) 5 mg tab(s) Take 1 tablet by mouth two times a day. Continue holding Eliquis, restart 11/15/2023. - sacubitril-valsartan (ENTRESTO) 97-103 mg tablet Take 1 tablet by mouth two times a day. - metoprolol succinate ER (TOPROL XL) 25 mg 24 hr tablet Take 12.5 mg by mouth once daily. - omega-3s/dha/epa/fish oil/D3 (VITAMIN-D + OMEGA-3 ORAL) Take by mouth. One tab once a week - vit C/E/Zn/coppr/lutein/zeaxan (PRESERVISION AREDS-2 ORAL) Take 2 tablets by mouth once daily. - amiodarone (PACERONE) 200 mg tablet Take 200 mg by mouth once daily. - SIMVASTATIN 20 mg ORAL tablet Take 20 mg by mouth daily at bedtime. Problem List As Of Date 11/19/2023 Noted Resolved SCREENING MAL NEOP-COLON [Z12.11] 02/16/2009 BENIGN NEOPLASM LG BOWEL [D12.6] 02/16/2009 Pain in soft tissues of limb [M79.609] 01/23/2011 Other acquired deformity of toe [M20.5X9] 01/23/2011 Porokeratosis [Q82.8] 01/23/2011 Onychia and paronychia of toe [L03.039] 01/23/2011 Atrial flutter (HCC) [I48.92] 09/27/2019 Severe protein-calorie malnutrition (HCC) [E43] 09/28/2019 Cardiac resynchronization therapy defibrillator*09/30/2019 S/P AV (atrioventricular) kyung ablation [Z98.8*09/30/2019 Persistent atrial fibrillation (HCC) [I48.19] 11/12/2023 Atypical atrial flutter (HCC) [I48.4] 11/12/2023 Stroke risk [Z91.89] 11/12/2023 Visit Notes: >> Kaz Cancino RN e Nov 19, 2023 9:00 AM Status: Signed Pt comes in today for wound check. [...] effexor if dizziness persists. Pt voices understanding. Kaz Cancino RN Encounter Status:Closed by KAZ CANCINO on 01/02/24 Normal [facility] Absolute lymphocyte countOrd ered By: Sree Ash on 11-14-2023 Lymphocytes Auto (Unsp spec) [#/Vol] 1.22 10*3/uL 0.83-4.51 [facility] Basophil percentageOrdered B y: Sree Ash on 11-14-2023 Basophils/100 WBC (Bld) 0.7 % 0-1 [facility] Bilirubin [Mass/Vol] 0.60 mg/dL 0.20-1.00 [facility] Comment on above: For patients on eltr ombopag therapy, use of Dimension [place] TBIL is not recommended. Chloride [Moles/Vol] 108 mmol/L 98-107 [facility] Cholesterol [Mass/Vol] 147 mg/dL <200 [facility] Comment on above: <200 mg/dL Desirable 200-240 mg/dL Borderline >240 mg/dL High Risk Eosinophils/100 WBC (Bld) 0.5 % 0-5 [facility] Glucose [Mass/Vol] 82 mg/dL 74-106 [facility] Neutrophils (Bld) [#/Vol] 9.0 10*3/uL 2.0-7.7 [facility] Neutrophils/100 WBC (Bld) 78.1 % 47-70 [facility] Potassium [Moles/Vol] 4.0 mmol/L 3.5-5.1 [facility] Protein [Mass/Vol] 7.2 g/dL 6.4-8.2 [facility] Sodium [Moles/Vol] 139 mmol/L 136-145 [facility] Triglyceride [Mass/Vol] 110 mg/dL <199 [facility] Comment on above: The drugs N-Acetylcy steine and Metamizole may falsely depress this assay.Serum Triglycerides Reference Interval Normal <150 mg/dL Borderline high 150 - 199 mg/dL High 200 - 499 mg/dL Very High > or = 500 mg/dL WBC (Bld) [#/Vol] 11.5 10*3/uL 4.4-11.0 [facility] Blood erythrocytes count (nu mber/volume)Ordered By: Sree Ash on 11-14-2023 RBC (Bld) [#/Vol] 4.77 10*6/uL 4.6-6.2 [facility] Blood hemoglobin measurement (mass/volume)[facility]-14-[facility]23 Hemoglobin (Bld) [Mass/Vol] 14.8 g/dL 13.0-16.5 [facility] Blood lymphocytes/100 leukoc ytesOrdered By: [facility] on 11-14-2023 Lymphocytes/100 WBC (Bld) 10.6 % 19-41 [facility] Blood monocytes/100 leukocyt esOrdered By: [facility] on 11-14-2023 Monocytes/100 WBC (Bld) 9.5 % 0-10 [facility] Blood platelet mean volumeOr dered By: [facility] on 11-14-2023 Platelet mean volume (Bld) [Entitic vol] 10.8 fL 6.2-12.0 [facility] Determination of erythrocyte mean corpuscular volume (MCV)Ordered By: [facility] on 11-14-2023 MCV (RBC) [Entitic vol] 97.1 fL 80-94 [facility] Hematocrit Auto (Bld) [Volum e fraction]Ordered By: [facility] on 11-14-2023 Hematocrit (Bld) [Volume fraction] 46.3 % 40-54 [facility] Laboratory - Chemistry and C hemistry - challengeOrdered By: [facility] 11-14-2023 ALP [Catalytic activity/Vol] 71 U/L 45-117 [facility] ALT [Catalytic activity/Vol] 21 U/L 16-61 [facility] CO2 [Moles/Vol] 27.0 mmol/L 21.0-32.0 [facility] Globulin (S) [Mass/Vol] 3.9 g/dL 2.2-4.2 [facility] Urea nitrogen/Creatinine [Mass ratio] 19.1 mg/mg 10-20 [facility] Laboratory - Hematology and Cell countsOrdered By: [facility] 11-14-2023 Erythrocyte distribution width (RBC) [Entitic vol] 50.4 fL 35.1-43.9 [facility] Erythrocyte distribution width (RBC) [Ratio] 14.0 % 11.6-14.6 [facility] Immature granulocytes/100 WBC (Bld) 0.600 % 0.0-0.9 [facility] Comment on above: IG% - Immature Granu locytes (promyelocytes, myelocytes and metamyelocytes) > 1% indicates that a LEFT SHIFT is Present. MCH (RBC) [Entitic mass] 31.0 pg 27.0-32.0 [facility] Nucleated RBC/100 WBC (Bld) [Ratio] 0 % 0-5 [facility] MCHC Auto (RBC) [Mass/Vol]Or dered By: Sree Ash on 11-14-2023 MCHC (RBC) [Mass/Vol] 32.0 g/dL 32-36 [facility] No Panel InformationOrdered By: Sree Ash on 11-14-2023 Estimated GFR (MDRD) Amer 63 mL/min >60 [facility] Comment on above: GFR Calc Estimated GFR (MDRD) Non-Af Amer 52 mL/min >60 [facility] Comment on above: Non- GFR Calc Thyroid Stimulating Hormone (TSH) 0.96 uIU/mL 0.358-3.74 [facility] Vitamin D 25-Hydroxy 37.1 ng/mL [facility] Comment on above: Vitamin D 25(OH) Sta tus Range Deficiency <20 ng/mL (50nmol/L) Insufficiency 20 - 30 ng/mL (50 - 75 nmol/L) Sufficiency 30 - 100 ng/mL (75 - 250 nmol/L) Toxicity >100 ng/mL (>250 nmol/L) Platelets bldOrdered By: Sree Ash on 11-14-2023 Platelets (Bld) [#/Vol] 100 10*3/uL 150-450 [facility] Serum or plasma albumin falguni urement (mass/volume)Ordered By: Sree Ash on 11-14-2023 Albumin [Mass/Vol] 3.3 g/dL 3.2-5.0 [facility] Serum or plasma albumin/glob ulin mass ratioOrdered By: Sree Ash on 11-14-2023 Albumin/Globulin [Mass ratio] 0.8 {ratio} 0.9-2.4 [facility] Serum or plasma calcium falguni urement (mass/volume)Ordered By: Sree Ash on 11-14-2023 Calcium [Mass/Vol] 9.3 mg/dL 8.5-10.1 [facility] Serum or plasma cholesterol in HDL measurement (mass/volume)Ordered By: Sree Ash on 11-14-2023 Cholesterol in HDL [Mass/Vol] 58 mg/dL >40 [facility] Comment on above: The drugs N-Acetylcy steine and Metamizole may falsely depress this assay. Reference Range HDL <40 mg/dL Low HDL Cholesterol HDL >or= 60 mg/dL High HDL Cholesterol Serum or plasma cholesterol in VLDL measurement (mass/volume)Ordered By: Sree Ash on 11-14-2023 Cholesterol in VLDL [Mass/Vol] 22 mg/dL 5-40 [facility] Serum or plasma creatinine m easurement (mass/volume)Ordered By: Sree Ash 11-14-2023 Creatinine [Mass/Vol] 1.41 mg/dL 0.70-1.30 [facility] Comment on above: The validity of the calculated GFR & GFRAA in patients over 70 years has not been determined. Clinical correlation is essential. Serum or plasma low density lipoprotein (LDL) cholesterol measurement (mass/volume)Ordered By: Sree Ash on 11-14-2023 Cholesterol in LDL [Mass/Vol] 67 mg/dL 0-130 [facility] Serum or plasma urea nitroge n measurement (mass/volume)Ordered By: Sree Ash 11-14-2023 Urea nitrogen [Mass/Vol] 27 mg/dL 7-18 [facility] Thin prep Papanicolaou smear with manual screeningOrdered By: Sree Ash 11-14-2023 Thin prep Papanicolaou smear with manual screening 14 U/L 15-37 [facility] Thin prep Papanicolaou smear with manual screening 4 5-15 [facility] ANES POSTPROC EVALon 023 ANES POSTPROC EVAL HNO ID: [id number] Author: Alonzo Wang MD Service: Anesthesiology Author Type: Anesthesiologist Type: Anesthesia Postprocedure Evaluation Filed: 11/12/2023 5:20 PM Note Text: POST ANESTHESIA EVALUATION NOTE : 1945 Procedure Summary Date: 11/12/23 Room / Location: [place] [address] / [facility] Anesthesia Start: 851 Anesthesia Stop: 1038 Procedure: REMOVAL AND REPLACEMENT IMPLANTABLE DEFIBRILLATOR PULSE GENERATOR DUAL LEAD SYSTEM (Left) Diagnosis: Cardiac resynchronization therapy defibrillator ([employer]ENT-D) in place ICD (implantable cardioverter-defibrillator) battery depletion (Cardiac resynchronization therapy defibrillator ([employer]EN[employer]ENT-D) in place [Z95.810]) (ICD (implantable cardioverter-defibrillator) battery depletion [Z45.02]) Surgeons: Marco Jaime MD Responsible Provider: Alonzo Wang MD Anesthesia Type: MAC ASA Status: 3 Anesthesia Type: MAC Last Vitals Vitals Value Taken Time BP 136/85 11/12/23 1415 Temp 11/12/23 1720 HR SpO2 70 11/12/23 1428 Resp 18 11/12/23 1428 SpO2 100 % 11/12/23 1428 Vitals shown include unfiled device data. Post Anesthesia Patient Status Patient Evaluation: PACU. PACU/ICU Patient Condition: stable. Anticipated Disposition: phase 2 then home. Neurological Status: aware and responsive. Pulmonary Status: breathing comfortably on room air Airway Control: returned to baseline unsupported. Cardiovascular Status: stable. Pain Management: clinically adequate Postoperative Hydration: acceptable. Intraoperative Events: no significant anesthesia events Post Operative Nausea/Vomiting Status: no significant post operative nausea or vomiting Recommendation: further care per PACU/ICU/floor team. Anesthesia Observations No Documentation SIGNATURE: Alonzo Wang MD PATIENT NAME: Benito Whittington DATE: November 12, 2023 TIME: 5:20 PM CSN: [id number] Normal [facility] ANES PRE-OPon 11-12-2023 ANES PRE-OP HNO ID: [id number] Author: Alonzo Wang MD Service: Anesthesiology Author Type: Anesthesiologist Type: Anesthesia Preprocedure Evaluation Filed: 11/12/2023 8:57 AM Note Text: ANESTHESIOLOGY DAY OF SURGERY NOTE : 1945 Procedure Information Date/Time: 11/12/23 0745 Procedure: REMOVAL AND REPLACEMENT IMPLANTABLE DEFIBRILLATOR PULSE GENERATOR DUAL LEAD SYSTEM (Left) - HANDP AM OF POD; SAME DAY D/C Location: [facility] / [facility] Surgeons: Marco Jaime MD Estimated body mass index is 18.87 kg/m? as calculated from the following: Height as of this encounter: 190.5 cm (6' 3). Weight as of this encounter: 68.5 kg (151 lb). Most recent hematocrit and potassium results: Hematocrit 45.3 11/12/2023 Potassium 3.8 10/02/2019 HTN HFrEF Afib - on eliquis (last dose 3d ago) CHB Thrombocytopenia - PLT 106k on 10/2023 Echo 08/2023 - LVEF 30%, no significant valve disease Stress test 08/2023 - Negative for ischemia I - PHYSICAL EVALUATION AIRWAY Patient intubated: No. Tracheostomy tube not present Mallampati: III. TM distance: >3 FB. Neck ROM: full ROM without neurological symptoms. Mouth opening: adequate. Short neck: no. Thick neck: no DENTAL Dental findings: missing tooth/teeth. Additional exam findings: no II - ANESTHESIA PLAN ASA Score: 3 Anesthetic Plan: MAC The patient is not a current smoker. NPO Status: adequate Beta Merrick Monitoring Plan Monitoring plan: standard ASA. Post Procedure Analgesic Plan Postoperative analgesic plan: multimodal analgesia. Informed Consent Anesthetic risks, benefits, alternatives, personnel and consent discussed: yes. Patient / Responsible Democrat agrees to proceed: yes Patient / Surrogate agrees to blood products: Yes Significant changes in the patient condition since the History and Physical, not otherwise documented in primary service progress note: no. Potential Anesthesia issues that may suggest increased risk of complications or contraindication to planned procedure: none. Vitals Value Taken Time BP 132/77 11/12/23718 Pulse 76 11/12/23718 Resp 18 11/12/23718 Temp 36.3 ?C (97.3 ?F) 11/12/23718 SpO2 97 % 11/12/23718 Facility-Administered Medications as of 11/12/2023 Medication Dose Route Frequency - vancomycin iv piggyback 1 g in D5W 200 mL (VANCOCIN) 0.015 g/kg/dose [employer] Load Builder to Procedure Outpatient Medications as of 11/12/2023 Medication Sig - sacubitril-valsartan (ENTRESTO) 97-103 mg tablet Take 1 tablet by mouth two times a day. - metoprolol succinate ER (TOPROL XL) 25 mg 24 hr tablet Take 12.5 mg by mouth once daily. - omega-3s/dha/epa/fish oil/D3 (VITAMIN-D + OMEGA-3 ORAL) Take by mouth. One tab once a week - vit C/E/Zn/coppr/lutein/zeaxan (PRESERVISION AREDS-2 ORAL) Take 2 tablets by mouth once daily. - amiodarone (PACERONE) 200 mg tablet Take 200 mg by mouth once daily. - SIMVASTATIN 20 mg ORAL tablet Take 20 mg by mouth daily at bedtime. - apixaban (ELIQUIS) 5 mg tab(s) Take 5 mg by mouth two times a day. - rivaroxaban (XARELTO) 20 mg tablet Take 1 tablet by mouth daily with dinner. DO NOT restart until 10/06/19. (Patient not taking: Reported on 09/04/2023) - potassium chloride (K-TAB) 10 mEq tablet Take 20 mEq by mouth once daily. (Patient not taking: Reported on 09/04/2023) I have interviewed and examined the patient. I have reviewed the medical record and/or the pre-anesthesia evaluation, pertinent labs, and test results. This contains updated information obtained within 48 hours of Surgery/Procedure. SIGNATURE: Alonzo Wang MD PATIENT NAME: Benito Whittington DATE: November 12, 2023 TIME: 7:56 AM CSN: [id number] Normal [facility] Basic metabolic 2000 panelon 11-12-2023 Anion gap [Moles/Vol] 8 mmol/L Low 9-18 [facility] Comment on above: Order Comment: Viry camp Type: BLOOD SPECIMEN Ordering Facility: [facility] Address: [address] [place] [address] Performed By: #### 2 4321-2 #### [facility] CLIA [id number] [address] [place] [address] [place] Calcium [Mass/Vol] 9.1 mg/dL Normal 8.5-10.2 [facility] Comment on above: Order Comment: [place]y camp Type: BLOOD SPECIMEN Ordering Facility: [facility] Address: [address] [place] [address] Performed By: #### 2 4321-2 #### [facility] CLIA [id number] [address] [place] [address] [place] Chloride [Moles/Vol] 103 mmol/L Normal 97-105 [facility] Comment on above: Order Comment: Speci men Type: BLOOD SPECIMEN Ordering Facility: [facility] Address: [address] [place] [address] Performed By: #### 2 4321-2 #### [facility] CLIA [id number] [address] [place] CO2 [Moles/Vol] 27 mmol/L Normal 22-30 [facility] Comment on above: Order Comment: Speci men Type: BLOOD SPECIMEN Ordering Facility: [facility] Address: [address] [place] [address] Performed By: #### 2 4321-2 #### [facility] CLIA [id number] [address] [place] Creatinine [Mass/Vol] 1.39 mg/dL High 0.73-1.22 [facility] Comment on above: Order Comment: Speci men Type: BLOOD SPECIMEN Ordering Facility: [facility] Address: [address] [place] [address] Performed By: #### 2 4321-2 #### [facility] CLIA [id number] [address] Creatinine and Glomerular filtration rate.predicted panel (S/P/Bld) 52 mL/min/1.73m??? Low >=60 [facility] Comment on above: Order Comment: Speci men Type: BLOOD SPECIMEN Ordering Facility: [facility] Address: [address] [place] [address] Result Comment: Lili mated Glomerular Filtration Rate (eGFR) is calculated using the 2020 CKD-EPI creatinine equation. This equation utilizes serum creatinine, sex, and age as parameters. The creatinine assay has traceable calibration to isotope dilution-mass spectrometry. Refer to KDIGO guidelines for clinical interpretation. In patients with unstable renal function, e.g. those with acute kidney injury, the eGFR may not accurately reflect actual GFR. Performed By: #### 2 4321-2 #### [facility] CLIA [id number] [address] [place] Glucose [Mass/Vol] 105 mg/dL High 74-99 [facility] Comment on above: Order Comment: Speci men Type: BLOOD SPECIMEN Ordering Facility: [facility] Address: [address] [place] [address] Result Comment: The [place] Diabetes Association (ADA) provides guidance for cutoff values for fasting glucose and random glucose. The ADA defines fasting as no caloric intake for at least 8 hours. Fasting plasma glucose results between 100 to 125 mg/dL indicate increased risk for diabetes (prediabetes). Fasting plasma glucose results greater than or equal to 126 mg/dL meet the criteria for diagnosis of diabetes. In the absence of unequivocal hyperglycemia, results should be confirmed by repeat testing. In a patient with classic symptoms of hyperglycemia or hyperglycemic crisis, random plasma glucose results greater than or equal to 200 mg/dL meet the criteria for diagnosis of diabetes. Reference: Standards of Medical Care in Diabetes 2016, [place] [employer] Association. Diabetes Care. 2016.39(Suppl 1). Performed By: #### 2 4321-2 #### [facility] CLIA [id number] 1 [place] [address] [place] Potassium [Moles/Vol] 4.6 mmol/L Normal 3.7-5.1 [facility] Comment on above: Order Comment: Camposi men Type: BLOOD SPECIMEN Ordering Facility: [facility] Address: [address] [place] [address] Performed By: #### 2 4321-2 #### [facility] CLIA [id number] 1 [place] [address] [place] Sodium [Moles/Vol] 138 mmol/L Normal 136-144 [facility] Comment on above: Order Comment: Speci men Type: BLOOD SPECIMEN Ordering Facility: [facility] Address: [address] [place] [address] Performed By: #### 2 4321-2 #### [facility] CLIA [id number] 1 [place] [address] [place] Urea nitrogen [Mass/Vol] 23 mg/dL Normal 9-24 [facility] Comment on above: Order Comment: Speci men Type: BLOOD SPECIMEN Ordering Facility: [facility] Address: [address] [place] [address] Performed By: #### 2 4321-2 #### [facility] CLIA [id number] [address] CBC panel Auto (Bld)on 11-12 Erythrocyte distribution width (RBC) [Ratio] 13.8 % Normal 11.5-15.0 [facility] Comment on above: Order Comment: Speci men Type: BLOOD SPECIMEN Ordering Facility: [facility] Address: [address] [place] [address] Performed By: #### 5 8410-2 #### [facility] CLIA [id number] [address] Hematocrit (Bld) [Volume fraction] 45.3 % Normal 39.0-51.0 [facility] Comment on above: Order Comment: Speci men Type: BLOOD SPECIMEN Ordering Facility: [facility] Address: [address] [place] [address] Performed By: #### 5 8410-2 #### [facility] CLIA [id number] [address] Hemoglobin (Bld) [Mass/Vol] 14.7 g/dL Normal 13.0-17.0 [facility] Comment on above: Order Comment: Speci men Type: BLOOD SPECIMEN Ordering Facility: [facility] Address: [address] [place] [address] Performed By: #### 5 8410-2 #### [facility] CLIA [id number] [address] MCH (RBC) [Entitic mass] 30.8 pg Normal 26.0-34.0 [facility] Comment on above: Order Comment: Speci men Type: BLOOD SPECIMEN Ordering Facility: [facility] Address: [address] [place] [address] Performed By: #### 5 8410-2 #### [facility] CLIA [id number] [address] [place] MCHC (RBC) [Mass/Vol] 32.5 g/dL Normal 30.5-36.0 [facility] Comment on above: Order Comment: Speci men Type: BLOOD SPECIMEN Ordering Facility: [facility] Address: [address] [place] [address] Performed By: #### 5 8410-2 #### [facility] CLIA [id number] [address] MCV (RBC) [Entitic vol] 94.8 fL Normal 80.0-100.0 [facility] Comment on above: Order Comment: Speci men Type: BLOOD SPECIMEN Ordering Facility: [facility] Address: [address] [place] [address] Performed By: #### 5 8410-2 #### [facility] CLIA [id number] [address] Nucleated RBC (Bld) [#/Vol] 10*3/uL Normal <0.01 [facility] Comment on above: Order Comment: Speci men Type: BLOOD SPECIMEN Ordering Facility: [facility] Address: [address] [place] [address] Performed By: #### 5 8410-2 #### [facility] CLIA [id number] [address] Platelet mean volume (Bld) [Entitic vol] 10.7 fL Normal 9.0-12.7 [facility] Comment on above: Order Comment: Speci men Type: BLOOD SPECIMEN Ordering Facility: [facility] Address: [address] [place] [address] Performed By: #### 5 8410-2 #### [facility] CLIA [id number] [address] Platelets (Bld) [#/Vol] 106 10*3/uL Low 150-400 [facility] Comment on above: Order Comment: Speci men Type: BLOOD SPECIMEN Ordering Facility: [facility] Address: [address] [place] [address] Result Comment: No c lot detected. Performed By: #### 5 8410-2 #### [facility] CLIA [id number] [address] [place] [address] [place] RBC (Bld) [#/Vol] 4.78 10*6/uL Normal 4.20-6.00 [facility] Comment on above: Order Comment: Speci men Type: BLOOD SPECIMEN Ordering Facility: [facility] Address: [place] [id number] Performed By: #### 5 8410-2 #### [facility] CLIA [id number] [address] [place] WBC (Bld) [#/Vol] 10.91 10*3/uL Normal 3.70-11.00 [facility] Comment on above: Order Comment: Speci men Type: BLOOD SPECIMEN Ordering Facility: [facility] Address: [place] [address] Performed By: #### 5 8410-2 #### [facility] CLIA [id number] [address] OF [facility] HISTORY PHYSICALon HISTORY PHYSICAL HNO ID: [id number] Author: Madhu Corbett APRN.LOIN TRIMMER Service: Electrophysiology Author Type: Nurse Practitioner Type: HANDP Filed: 11/12/2023 8:06 AM Note Text: HISTORY AND PHYSICAL: ELECTROPHYSIOLOGY SERVICE SERVICE DATE: 11/12/2023 SERVICE TIME: 7:49 AM PCP: Sree Ash MD ATTENDING: Yeni GRAVES, Marco García Subjective CHIEF COMPLAINT: Cardiac resynchronization therapy defibrillator (TRAVEL FREIGHT AND PASSENGER AGENT-D) in place [Z95.810] ICD (implantable cardioverter-defibrillator) battery depletion [Z45.02] HISTORY OF PRESENT ILLNESS: Mr. Whittington is a pleasant 78 year old gentleman with past medical history of essential hypertension, cardiomyopathy, severe left ventricular dysfunction, persistent atrial fibrillation, and atypical atrial flutter who presents today for TRAVEL FREIGHT AND PASSENGER AGENT-D generator change. Patient underwent implantation of [employer] TRAVEL FREIGHT AND PASSENGER AGENT-D system on 09/30/2019. Subsequently patient underwent AV kyung ablation. Patient resides in the [facility] and his device is followed by Dr. Roberts. Most recent device check indicated HACK DRIVER was reached on 08/26/2023. History of longstanding persistent atrial fibrillation as well as atypical atrial flutter. Patient denies any symptoms with arrhythmia. Patient is anticoagulated on Eliquis 5 mg twice daily. [id number] of at least 4 secondary to age, hypertension, and CAD. Patient presently denies angina, shortness of breath, or constitutional symptoms. He does endorse some fatigue and anxiety. Patient last took his Eliquis on Saturday morning 11/09/2023. Patient has been n.p.o. since 1900 yesterday 11/11/2023. He did take some small sips of water this morning medications. Lengthy discussion was had regarding what to expect pre-/intra-/post procedure. Topics included procedure overview, MAC, recovery, risk/benefits, and follow-up. Benefit being episcopal of battery life. Very low potential risk of superficial bleeding, stroke, or . Medications, allergies, medical history reviewed with patient. Mr. Whittington indicated I had answered all of his questions and he had nothing further at this time. Patient verbalized a desire to move forward with procedure. PAST MEDICAL HISTORY Diagnosis Date Acid reflux Allergy, unspecified not elsewhere classified Aneurysm, thoracic aortic (HCC) Arrhythmia Arthritis neck Atypical atrial flutter (HCC) 11/12/2023 Benign neoplasm of colon Cardiac resynchronization therapy defibrillator (TRAVEL FREIGHT AND PASSENGER AGENT-D) in place Chronic obstructive pulmonary disease (COPD) (HCC) Congenital anomalies of pancreas Coronary artery disease Essential hypertension Hyperlipemia ICD (implantable cardioverter-defibrillator) in place Longstanding persistent atrial fibrillation (HCC) MVP (mitral valve prolapse) Other and unspecified hyperlipidemia Other premature beats Other specified forms of chronic ischemic heart disease Persistent atrial fibrillation (HCC) 11/12/2023 H - PAST MEDICAL HISTORY OF dilated cardiolyopathy Snoring Stroke risk 11/12/2023 SVT (supraventricular tachycardia) Syncope VT (ventricular tachycardia) ([facility]) PAST SURGICAL HISTORY Procedure Laterality Date AV KYUNG ABLATION 09/30/[address] Jaime at [facility] CATARACT EXTRACTION HX Bilateral COLONOSCOPY FLX DX W/COLLJ SPEC WHEN PFRMD 02/16/2009 Colonoscopy COLONOSCOPY FLX DX W/COLLJ SPEC WHEN PFRMD 09/29/2010 [facility] COLONOSCOPY FLX DX W/COLLJ SPEC WHEN PFRMD 08/16/2014 Colonoscopy TRAVEL FREIGHT AND PASSENGER AGENT-D/TRAVEL FREIGHT AND PASSENGER AGENT-P IMPLANT Left 09/30/2019 Upgrade single ICD to TRAVEL FREIGHT AND PASSENGER AGENT-D with Dr. Barboza at [facility] ESOPHAGOGASTRODUODENOSCOPY TRANSORAL DIAGNOSTIC 02/07/2015 EGD ESOPHAGOGASTRODUODENOSCOPY TRANSORAL DIAGNOSTIC 05/17/2015 EGD [facility] out pt HEART SURGERY HX LEAD,PACEMAKER/DEFIB COMBO 03/11/2004 NEPHRECTOMY PARTIAL 07/02/2018 PAST SURGICAL HISTORY OF surgery on groin area lymph gland SIGMOIDOSCOPY FLX DX W/COLLJ SPEC BR/WA IF PFRMD 01/12/2016 Sigmoidoscopy, flexible TONSILLECTOMY PRIMARY/SECONDARY Tonsillectomy TOTAL KNEE REPLACEMENT Left FAMILY HISTORY Problem Relation Age of Onset other (pancreas problems [Other]) Mother Heart disease Father Heart disease Sister Heart disease Brother Social History Tobacco Use Smoking status: Former Packs/day: .5 Types: Cigarettes Quit date: 2019 Years since quittin.9 Smokeless tobacco: Never Tobacco comments: less than a pack per day Substance Use Topics Alcohol use: No Drug use: Never Prior to Admission Medications Prescriptions Last Dose Informant Patient Reported? Taking? SIMVASTATIN 20 mg ORAL tablet 11/11/2023 at 2000 Yes Yes Sig: Take 20 mg by mouth daily at bedtime. amiodarone (PACERONE) 200 mg tablet 11/12/2023 at 0430 Yes Yes Sig: Take 200 mg by mouth once daily. apixaban (ELIQUIS) 5 mg tab(s) 11/09/2023 Yes No Sig: Take 5 mg by mouth two times a day. metoprolol succinate ER (TOPROL XL) 25 mg 24 hr tablet 11/11/2023 at 2000 Yes Yes Sig: Take 12.5 mg by mout (more content not included)... Normal [facility] NURSING PROGon 11-12-2023 NURSING PROG HNO ID: [id number] Author: Charlee Gant RN Service: ? Author Type: Registered Nurse Type: Nursing Progress Note Filed: 11/12/2023 2:26 PM Note Text: 1420 Patient is resting A@O X 3,VSS home instructions reinforced. Patient asked questions appropriately, was able to talk about his home instructions. Said he was sorry about the accident. NEURO check WNL. Spoke to Ta his friend from [place] for his ride home. She is having her parents pick him up. I updated her on the recent episode. She said they will look in on him. Continue to monitor. Normal [facility] NURSING PROG HNO ID: [id number] Author: Charlee Gant RN Service: ? Author Type: Registered Nurse Type: Nursing Progress Note Filed: 11/12/2023 2:06 PM Note Text: 1330 pressure dressing removed the dressing underneath is dry and intact. ICE applied. Patient states he is sore. 1335 patient asked to use the B/R assisted patient to B/R without difficulties. When pateint was coming out of the B/R he said he felt hot and at that time I RN was holding on to him and he and I slid down to the floor. The alert button pulled and help for POD assisted in getting the patient into bed. Patient stated he could hear me by shaking his head. When return back to the POD 11 his vital signs 130/80 Sat 98% he sated he was sweaty. NEUR check given hand grasps equal,lower extremities push pull equal. Patient know his birthday month and year. But not sure on what this year is. Dr. Jaime notified and updated. VS were reported, O2 stat and HR. Explained the patient neuro states. NO new orders given. The left chest wall site remains D/I denies any nausea. Normal [facility] Marbin 10-01-2023 JESUSN Telephone (AGCARDPOB ) BENITO WHITTINGTON ([id number]) 1945 M Date Time Provider Department 10/01/23 MARCO JAIMEGCARDPOBradly During your visit today, we recorded the following information about you: Moisesanastacia Zeenat 10/01/2023 12:11 PM Signed Patient is scheduled for an ICD Replacement on 10/[address] Jaime. The hospital will call the day before between 2-5pm with your arrival time. You should not eat or drink after midnight the day before the procedure. You will need a meals on wheels driver when released from the hospital. You should continue to take medications as prescribed the morning of the procedure with just a sip of water but Hold Eliquis for 3 days prior to change out Left message for Benito Whittington to call back and confirm date AND instructions Yoko Williamson LPN 10/01/2023 1:39 PM Signed Patient returned call to [facility] to confirm date for an ICD Replacement on 10/[address] Jaime. Patient verbalizes understanding to procedure instructions including to hold Eliquis for 3 days prior to change out. RONNY Dexter Stacey, RN 10/01/2023 4:00 PM Signed Pt's name has been added to [facility] procedure board. CHANA Gilbert Emily 10/15/2023 11:37 AM Signed Patient is rescheduled for an ICD Replacement on 11/[address] Jaime. The hospital will call the day before between 2-5pm with your arrival time. You should not eat or drink after midnight the day before the procedure. You will need a meals on wheels driver when released from the hospital. You should continue to take medications as prescribed the morning of the procedure with just a sip of water but Hold Eliquis for 3 days prior to change out HANDP morning of Spoke with Benito Whittington on October 15, 2023. Informed of instructions as stated above. Patient verbalized understanding. Zeenat Steen Allergies As of Date: 10/01/2023 (No Known Allergies) Date Reviewed: 09/30/2023 Reviewed by: Oma Cherry MA - Fully Assessed Reason for Visit: Preparations For Procedures [899] Prescriptions as of 10/15/2023 - amLODIPine (NORVASC) 5 mg tablet Take 1 tablet by mouth daily at bedtime. - apixaban (ELIQUIS) 5 mg tab(s) Take 5 mg by mouth two times a day. - sacubitril-valsartan (ENTRESTO) 97-103 mg tablet Take 1 tablet by mouth two times a day. - metoprolol succinate ER (TOPROL XL) 25 mg 24 hr tablet Take 12.5 mg by mouth once daily. - omega-3s/dha/epa/fish oil/D3 (VITAMIN-D + OMEGA-3 ORAL) Take by mouth. One tab once a week - rivaroxaban (XARELTO) 20 mg tablet Take 1 tablet by mouth daily with dinner. DO NOT restart until 10/06/19. - potassium chloride (K-TAB) 10 mEq tablet Take 20 mEq by mouth once daily. - vit C/E/Zn/coppr/lutein/zeaxan (PRESERVISION AREDS-2 ORAL) Take 2 tablets by mouth once daily. - amiodarone (PACERONE) 200 mg tablet Take 200 mg by mouth once daily. - SIMVASTATIN 20 mg ORAL tablet Take 20 mg by mouth daily at bedtime. Problem List As Of Date 10/01/2023 Noted Resolved SCREENING MAL NEOP-COLON [Z12.11] 02/16/2009 BENIGN NEOPLASM LG BOWEL [D12.6] 02/16/2009 Pain in soft tissues of limb [M79.609] 01/23/2011 Other acquired deformity of toe [M20.5X9] 01/23/2011 Porokeratosis [Q82.8] 01/23/2011 Onychia and paronychia of toe [L03.039] 01/23/2011 Atrial flutter (HCC) [I48.92] 09/27/2019 Severe protein-calorie malnutrition (HCC) [E43] 09/28/2019 Cardiac resynchronization therapy defibrillator*09/30/2019 S/P AV (atrioventricular) kyung ablation [Z98.8*09/30/2019 Encounter Status:Closed by ZEENAT STEEN on 10/01/23 [facility] Gabriel 09-30-2023 [facility] Office Visit (SHWETA ERICKSON) BENITO WHITTINGTON ([id number]) 1945 M Date Time Provider Department 09/30/23 10:00 AM MARCO JAIME During your visit today, we recorded the following information about you: Pulse Blood pressure Weight Height 71/minute 90/53 67.6 kg 1.905 m Oma Cherry MA 09/30/2023 10:13 AM Signed No cardiac complaints today. ENEDINA Kruas Sergey Aleksandrovich, MD 09/30/2023 10:48 AM Signed [facility] [place] [facility] SECTION OF CARDIAC PACING and ELECTROPHYSIOLOGY OUTPATIENT VISIT DATE September 30, 2023 OUTPATIENT VISIT TYPE NEW PRIMARY CARE PHYSICIAN: Sree Ash MD [address] [facility] [address] [place] [address] REFERRING PHYSICIAN: Anupam Reece MD ([place], [place]). HISTORY OF PRESENT ILLNESS: 78-year-old male with history of essential hypertension, cardiomyopathy with severe LV systolic dysfunction, persistent atrial fibrillation/atypical atrial flutter, and oral anticoagulation, status post TRAVEL FREIGHT AND PASSENGER AGENT-D system implantation in 2019 with concurrent AV kyung ablation. The patient was referred for device replacement since the most recent interrogation demonstrated HACK DRIVER status. Benito reports feeling well, has his ups and downs, denies palpitation, dyspnea, chest discomfort, or ICD shocks. He is on oral anticoagulation with Eliquis with no obvious bleeding complications. He is on appropriate medical regimen. Apparently he is on amiodarone as well. Device interrogation from August 2023 showed stable lead parameters, ongoing mode switch for close to a year, battery at HACK DRIVER. ECG shows atrial flutter with ventricular pacing. Most recent echocardiogram showed EF of 30% Pharmacologic nuclear stress test showed apical scar with no reversibility and EF of 31%. PAST MEDICAL HISTORY Diagnosis Date Acid reflux Allergy, unspecified not elsewhere classified Aneurysm, thoracic aortic (HCC) Arrhythmia Arthritis neck Benign neoplasm of colon Cardiac resynchronization therapy defibrillator (TRAVEL FREIGHT AND PASSENGER AGENT-D) in place Chronic obstructive pulmonary disease (COPD) ([facility]) Congenital anomalies of pancreas Coronary artery disease Essential hypertension Hyperlipemia ICD (implantable cardioverter-defibrillator) in place Longstanding persistent atrial fibrillation (HCC) MVP (mitral valve prolapse) Other and unspecified hyperlipidemia Other premature beats Other specified forms of chronic ischemic heart disease PMH - PAST MEDICAL HISTORY OF dilated cardiolyopathy Snoring SVT (supraventricular tachycardia) Syncope VT (ventricular tachycardia) (HCC) MEDICATIONS: amLODIPine (NORVASC) 5 mg tablet Take [...] icterus. Conjunctiva/sclera: Conjunctivae normal. Pupils: Pupils are eq (more content not included)... Normal [facility] CNPNon 08-29-2023 CNPN Telephone (AGCARDPOB ) BENITO WHITTINGTON ([id number]) 1945 M Date Time Provider Department 08/29/23 MARCO JAIMEHAGCARDPOB During your visit today, we recorded the following information about you: Quinten Cannon LPN 08/29/2023 3:54 PM Signed Pt called in inquiring if he should complete an labs or cardiac testing prior to his September. RONNY Meehan Sergey Aleksandrovich, MD 09/02/2023 9:19 AM Signed No, but we need the most recent device interrogation report from [place] please. MD Christoph Gibson Laurie 09/02/2023 11:40 AM Signed May need to check with [place] [facility] through [facility]. Not a [facility] patient. ENEDINA Foster Tera, LPN 09/02/2023 1:36 PM Signed Spoke with Opal at [place] [facility]. She reports it was previously faxed with the consult paperwork. However She will reprint and fax again. RONNY Meehan Tera, LPN 09/05/2023 9:16 AM Signed Report received and placed into scanned documents and in your door wall box. Quinten Cannon LPN Allergies As of Date: 08/29/2023 (No Known Allergies) Date Reviewed: 09/30/2019 Reviewed by: Gris Zaragoza (Rn), RN - Fully Assessed Reason for Visit: Orders [681] Prescriptions as of 09/05/2023 - amiodarone (PACERONE) 200 mg tablet Take 200 mg by mouth once daily. - apixaban (ELIQUIS) 5 mg tab(s) Take by mouth two times a day. - metoprolol succinate ER (TOPROL XL) 25 mg 24 hr tablet Take 12.5 mg by mouth once daily. - omega-3s/dha/epa/fish oil/D3 (VITAMIN-D + OMEGA-3 ORAL) Take by mouth. One tab once a week - potassium chloride (K-TAB) 10 mEq tablet Take 20 mEq by mouth once daily. - rivaroxaban (XARELTO) 20 mg tablet Take 1 tablet by mouth daily with dinner. DO NOT restart until 10/06/19. - sacubitril-valsartan (ENTRESTO) 97-103 mg tablet Take 1 tablet by mouth two times a day. - SIMVASTATIN 20 mg ORAL tablet Take 20 mg by mouth daily at bedtime. - vit C/E/Zn/coppr/lutein/zeaxan (PRESERVISION AREDS-2 ORAL) Take 2 tablets by mouth once daily. Problem List As Of Date 08/29/2023 Noted Resolved SCREENING MAL NEOP-COLON [Z12.11] 02/16/2009 BENIGN NEOPLASM LG BOWEL [D12.6] 02/16/2009 Pain in soft tissues of limb [M79.609] 01/23/2011 Other acquired deformity of toe [M20.5X9] 01/23/2011 Porokeratosis [Q82.8] 01/23/2011 Onychia and paronychia of toe [L03.039] 01/23/2011 Atrial flutter (HCC) [I48.92] 09/27/2019 Severe protein-calorie malnutrition (HCC) [E43] 09/28/2019 Cardiac resynchronization therapy defibrillator*09/30/2019 S/P AV (atrioventricular) kyung ablation [Z98.8*09/30/2019 Encounter Status:Closed by QUINTEN CANNON on 09/03/23 [facility] Absolute lymphocyte countOrd ered By: Rashmi Fatima on 07-30-2023 Lymphocytes Auto (Unsp spec) [#/Vol] 1.15 10*3/uL 0.83-4.51 [facility] Basophil percentageOrdered B y: Rashmi Fatima on 07-30-2023 Basophils/100 WBC (Bld) 1.0 % 0-1 [facility] Chloride [Moles/Vol] 107 mmol/L 98-107 [facility] Eosinophils/100 WBC (Bld) 1.7 % 0-5 [facility] Glucose [Mass/Vol] 90 mg/dL 74-106 [facility] Neutrophils (Bld) [#/Vol] 4.0 10*3/uL 2.0-7.7 [facility] Neutrophils/100 WBC (Bld) 69.4 % 47-70 [facility] Potassium [Moles/Vol] 3.9 mmol/L 3.5-5.1 [facility] Sodium [Moles/Vol] 138 mmol/L 136-145 [facility] WBC (Bld) [#/Vol] 5.8 10*3/uL 4.4-11.0 [facility] Blood erythrocytes count (nu mber/volume)Ordered By: Rashmi Fatima on 07-30-2023 RBC (Bld) [#/Vol] 4.34 10*6/uL 4.6-6.2 [facility] Blood hemoglobin measurement (mass/volume)Ordered By: Rashmi Fatima on 07-30-2023 Hemoglobin (Bld) [Mass/Vol] 13.4 g/dL 13.0-16.5 [facility] Blood lymphocytes/100 leukoc ytesOrdered By: Rashmi Fatima on 07-30-2023 Lymphocytes/100 WBC (Bld) 19.8 % 19-41 [facility] Blood monocytes/100 leukocyt esOrdered By: Rashmi Fatima on 07-30-2023 Monocytes/100 WBC (Bld) 7.6 % 0-10 [facility] Blood platelet mean volumeOr dered By: Rashmi Fatima on 07-30-2023 Platelet mean volume (Bld) [Entitic vol] 11.2 fL 6.2-12.0 [facility] Determination of erythrocyte mean corpuscular volume (MCV)Ordered By: Rashmi Fatima on 07-30-2023 MCV (RBC) [Entitic vol] 94.7 fL 80-94 [facility] Hematocrit Auto (Bld) [Volum e fraction]Ordered By: Rashmi Fatima on 07-30-2023 Hematocrit (Bld) [Volume fraction] 41.1 % 40-54 [facility] Laboratory - Chemistry and C hemistry - challengeOrdered By: Rashmi Fatima on 07-30-2023 CO2 [Moles/Vol] 27.0 mmol/L 21.0-32.0 [facility] Natriuretic peptide B (Bld) [Mass/Vol] 125.9 pg/mL 0-100 [facility] Urea nitrogen/Creatinine [Mass ratio] 20.8 mg/mg 10-20 [facility] - Hematology and Cell countsOrdered By: Rashmi Fatima on 07-30-2023 Erythrocyte distribution width (RBC) [Entitic vol] 48.8 fL 35.1-43.9 [facility] Erythrocyte distribution width (RBC) [Ratio] 13.9 % 11.6-14.6 [facility] Immature granulocytes/100 WBC (Bld) 0.500 % 0.0-0.9 [facility] Comment on above: IG% - Immature Granu locytes (promyelocytes, myelocytes and metamyelocytes) > 1% indicates that a LEFT SHIFT is Present. MCH (RBC) [Entitic mass] 30.9 pg 27.0-32.0 [facility] Nucleated RBC/100 WBC (Bld) [Ratio] 0 % 0-5 [facility] MCHC Auto (RBC) [Mass/Vol]Or dered By: Rashmi Fatima on 07-30-2023 MCHC (RBC) [Mass/Vol] 32.6 g/dL 32-36 [facility] No Panel InformationOrdered By: Rashmi Fatima on 07-30-2023 Estimated GFR (MDRD) Amer 72 mL/min >60 [facility] Comment on above: GFR Calc Estimated GFR (MDRD) Non-Af Amer 59 mL/min >60 [facility] Comment on above: Non- GFR Calc Platelets bldOrdered By: Cesar Fatima on 07-30-2023 Platelets (Bld) [#/Vol] 102 10*3/uL 150-450 [facility] Serum or plasma calcium falguni urement (mass/volume)Ordered By: Rashmi Fatima on 07-30-2023 Calcium [Mass/Vol] 8.7 mg/dL 8.5-10.1 [facility] Serum or plasma creatinine m easurement (mass/volume)Ordered By: Rashmi Fatima on 07-30-2023 Creatinine [Mass/Vol] 1.25 mg/dL 0.70-1.30 [facility] Comment on above: The validity of the calculated GFR & GFRAA in patients over 70 years has not been determined. Clinical correlation is essential. Serum or plasma urea nitroge n measurement (mass/volume)Ordered By: Rashmi Fatima on 07-30-2023 Urea nitrogen [Mass/Vol] 26 mg/dL 7-18 [facility] Thin prep Papanicolaou smear with manual screeningOrdered By: Rashmi Fatima on 07-30-2023 Thin prep Papanicolaou smear with manual screening 4 5-15 [facility] Basophil percentageOrdered B y: Elizabeth Metzger on 07-04-2023 Basophil percentage 2.4 mg/dL 2.5-4.9 [facility] Chloride [Moles/Vol] 108 mmol/L 98-107 [facility] Glucose [Mass/Vol] 96 mg/dL 74-106 [facility] Potassium [Moles/Vol] 3.9 mmol/L 3.5-5.1 [facility] Sodium [Moles/Vol] 140 mmol/L 136-145 [facility] Laboratory - Chemistry and C hemistry - challengeOrdered By: Elizabeth Metzger on 07-04-2023 CO2 [Moles/Vol] 29.0 mmol/L 21.0-32.0 [facility] Urea nitrogen/Creatinine [Mass ratio] 12.6 mg/mg 10-20 [facility] No Panel InformationOrdered By: Elizabeth Metzger on 07-04-2023 Estimated GFR (MDRD) Amer 71 mL/min >60 [facility] Comment on above: GFR Calc Estimated GFR (MDRD) Non-Af Amer 58 mL/min >60 [facility] Comment on above: Non- GFR Calc Serum or plasma albumin falguni urement (mass/volume)Ordered By: Elizabeth Metzger on 07-04-2023 Albumin [Mass/Vol] 3.4 g/dL 3.2-5.0 [facility] Serum or plasma calcium falguni urement (mass/volume)Ordered By: Elizabeth Metzger on 07-04-2023 Calcium [Mass/Vol] 8.6 mg/dL 8.5-10.1 [facility] Serum or plasma creatinine m easurement (mass/volume)Ordered By: Elizabeth Metzger on 07-04-2023 Creatinine [Mass/Vol] 1.27 mg/dL 0.70-1.30 [facility] Comment on above: The validity of the calculated GFR & GFRAA in patients over 70 years has not been determined. Clinical correlation is essential. Serum or plasma urea nitroge n measurement (mass/volume)Ordered By: Elizabeth Metzger on 07-04-2023 Urea nitrogen [Mass/Vol] 16 mg/dL 7-18 [facility] Basophil percentageOrdered B y: Sree Ash on 06-04-2023 Chloride [Moles/Vol] 106 mmol/L 98-107 [facility] Glucose [Mass/Vol] 81 mg/dL 74-106 [facility] Potassium [Moles/Vol] 3.9 mmol/L 3.5-5.1 [facility] Sodium [Moles/Vol] 138 mmol/L 136-145 [facility] Laboratory - Chemistry and C hemistry - challengeOrdered By: Sree Ash on 06-04-2023 CO2 [Moles/Vol] 28.0 mmol/L 21.0-32.0 [facility] Urea nitrogen/Creatinine [Mass ratio] 12.8 mg/mg 10- [facility] No Panel InformationOrdered By: Sree Ash on 06-04-2023 Estimated GFR (MDRD) Amer 72 mL/min >60 [facility] Comment on above: GFR Calc Estimated GFR (MDRD) Non-Af Amer 59 mL/min >60 [facility] Comment on above: Non- GFR Calc Serum or plasma calcium falguni urement (mass/volume)Ordered By: Sree Ash on 06-04-2023 Calcium [Mass/Vol] 9.1 mg/dL 8.5-10.1 [facility] Serum or plasma creatinine m easurement (mass/volume)Ordered By: Sree Ash on 06-04-2023 Creatinine [Mass/Vol] 1.25 mg/dL 0.70-1.30 [facility] Comment on above: The validity of the calculated GFR & GFRAA in patients over 70 years has not been determined. Clinical correlation is essential. Serum or plasma urea nitroge n measurement (mass/volume)Ordered By: Sree Ash on 06-04-2023 Urea nitrogen [Mass/Vol] 16 mg/dL 7-18 [facility] Thin prep Papanicolaou smear with manual screeningOrdered By: Sree Ash on 06-04-2023 Thin prep Papanicolaou smear with manual screening 4 5-15 [facility] Basophil percentageOrdered B y: Sree Ash on 05-21-2023 Chloride [Moles/Vol] 108 mmol/L 98-107 [facility] Glucose [Mass/Vol] 81 mg/dL 74-106 [facility] Potassium [Moles/Vol] 4.2 mmol/L 3.5-5.1 [facility] Sodium [Moles/Vol] 136 mmol/L 136-145 [facility] Laboratory - Chemistry and C hemistry - challengeOrdered By: Sree Ash on 05-21-2023 CO2 [Moles/Vol] 22.0 mmol/L 21.0-32.0 [facility] Urea nitrogen/Creatinine [Mass ratio] 14.6 mg/mg 10-20 [facility] No Panel InformationOrdered By: Sree Ash on 05-21-2023 Estimated GFR (MDRD) Amer 73 mL/min >60 [facility] Comment on above: GFR Calc Estimated GFR (MDRD) Non-Af Amer 61 mL/min >60 [facility] Comment on above: Non- GFR Calc Serum or plasma calcium falguni urement (mass/volume)Ordered By: Sree sAh on 05-21-2023 Calcium [Mass/Vol] 8.9 mg/dL 8.5-10.1 [facility] Serum or plasma creatinine m easurement (mass/volume)Ordered By: Sree Ash on 05-21-2023 Creatinine [Mass/Vol] 1.23 mg/dL 0.70-1.30 [facility] Comment on above: The validity of the calculated GFR & GFRAA in patients over 70 years has not been determined. Clinical correlation is essential. Serum or plasma urea nitroge n measurement (mass/volume)Ordered By: Sree Ash on 05-21-2023 Urea nitrogen [Mass/Vol] 18 mg/dL 7-18 [facility] Thin prep Papanicolaou smear with manual screeningOrdered By: Sree Ash on 05-21-2023 Thin prep Papanicolaou smear with manual screening 6 5-15 [facility] No Panel InformationOrdered By: Sander Pittman on 05-16-2023 Prostate Specific Antigen Screen 1.09 ng/mL 0.00-4.00 [facility] Comment on above: This test was perfor med using the TPSA assay method for [employer] chemistry system. Values obtained with differentassay methods cannot be used interchangably.When changing PSA assays in the course of monitoring apatient, additional sequential testing should be carriedout to confirm baseline values. Absolute lymphocyte countOrd ered By: Dr. Ash on 05-07-2023 Lymphocytes Auto (Unsp spec) [#/Vol] 0.73 10*3/uL 0.83-4.51 [facility] Basophil percentageOrdered B y: Dr. Ash on 05-07-2023 Basophils/100 WBC (Bld) 1.7 % 0-1 [facility] Bilirubin [Mass/Vol] 0.60 mg/dL 0.20-1.00 [facility] Comment on above: For patients on eltr ombopag therapy, use of Dimension [place] TBIL is not recommended. Chloride [Moles/Vol] 108 mmol/L 98-107 [facility] Eosinophils/100 WBC (Bld) 4.1 % 0-5 [facility] Glucose [Mass/Vol] 88 mg/dL 74-106 [facility] Neutrophils (Bld) [#/Vol] 2.9 10*3/uL 2.0-7.7 [facility] Neutrophils/100 WBC (Bld) 69.6 % 47-70 [facility] Potassium [Moles/Vol] 4.1 mmol/L 3.5-5.1 [facility] Protein [Mass/Vol] 7.3 g/dL 6.4-8.2 [facility] Sodium [Moles/Vol] 140 mmol/L 136-145 [facility] WBC (Bld) [#/Vol] 4.2 10*3/uL 4.4-11.0 [facility] Blood erythrocytes count (nu mber/volume)Ordered By: Dr. Ash on 05-07-2023 RBC (Bld) [#/Vol] 4.80 10*6/uL 4.6-6.2 [facility] Blood hemoglobin measurement (mass/volume)Ordered By: Dr. Ash on 05-07-2023 Hemoglobin (Bld) [Mass/Vol] 14.3 g/dL 13.0-16.5 [facility] Blood lymphocytes/100 leukoc ytesOrdered By: Dr. Ash on 05-07-2023 Lymphocytes/100 WBC (Bld) 17.5 % 19-41 [facility] Blood monocytes/100 leukocyt esOrdered By: Dr. Ash on 05-07-2023 Monocytes/100 WBC (Bld) 6.9 % 0-10 [facility] Blood platelet mean volumeOr dered By: Dr. Ash on 05-07-2023 Platelet mean volume (Bld) [Entitic vol] 11.1 fL 6.2-12.0 [facility] Determination of erythrocyte mean corpuscular volume (MCV)Ordered By: Dr. Ash on 05-07-2023 MCV (RBC) [Entitic vol] 95.6 fL 80-94 [facility] Hematocrit Auto (Bld) [Volum e fraction]Ordered By: Dr. Ash on 05-07-2023 Hematocrit (Bld) [Volume fraction] 45.9 % 40-54 [facility] Laboratory - Chemistry and C hemistry - challengeOrdered By: Dr. Ash on 05-07-2023 ALP [Catalytic activity/Vol] 80 U/L 45-117 [facility] ALT [Catalytic activity/Vol] 21 U/L 16-61 [facility] CO2 [Moles/Vol] 27.0 mmol/L 21.0-32.0 [facility] Globulin (S) [Mass/Vol] 3.8 g/dL 2.2-4.2 [facility] Urea nitrogen/Creatinine [Mass ratio] 11.0 mg/mg 10-20 [facility] - Hematology and Cell countsOrdered By: Dr. Ash on 05-07-2023 Erythrocyte distribution width (RBC) [Entitic vol] 51.6 fL 35.1-43.9 [facility] Erythrocyte distribution width (RBC) [Ratio] 14.5 % 11.6-14.6 [facility] Immature granulocytes/100 WBC (Bld) 0.200 % 0.0-0.9 [facility] Comment on above: IG% - Immature Granu locytes (promyelocytes, myelocytes and metamyelocytes) > 1% indicates that a LEFT SHIFT is Present. MCH (RBC) [Entitic mass] 29.8 pg 27.0-32.0 [facility] Nucleated RBC/100 WBC (Bld) [Ratio] 0 % 0-5 [facility] MCHC Auto (RBC) [Mass/Vol]Or dered By: Dr. Ash on 05-07-2023 MCHC (RBC) [Mass/Vol] 31.2 g/dL 32-36 [facility] No Panel InformationOrdered By: Dr. Ash on 05-07-2023 Estimated GFR (MDRD) Amer 84 mL/min >60 [facility] Comment on above: GFR Calc Estimated GFR (MDRD) Non-Af Amer 70 mL/min >60 [facility] Comment on above: Non- GFR Calc Thyroid Stimulating Hormone (TSH) 1.13 uIU/mL 0.358-3.74 [facility] Vitamin D 25-Hydroxy 36.1 ng/mL [facility] Comment on above: Vitamin D 25(OH) Sta tus Range Deficiency <20 ng/mL (50nmol/L) Insufficiency 20 - 30 ng/mL (50 - 75 nmol/L) Sufficiency 30 - 100 ng/mL (75 - 250 nmol/L) Toxicity >100 ng/mL (>250 nmol/L) Platelets bldOrdered By: Dr. Ash on 05-07-2023 Platelets (Bld) [#/Vol] 95 10*3/uL 150-450 [facility] Serum or plasma albumin falguni urement (mass/volume)Ordered By: Dr. Ash on 05-07-2023 Albumin [Mass/Vol] 3.5 g/dL 3.2-5.0 [facility] Serum or plasma albumin/glob ulin mass ratioOrdered By: Dr. Ash on 05-07-2023 Albumin/Globulin [Mass ratio] 0.9 {ratio} 0.9-2.4 [facility] Serum or plasma calcium falguni urement (mass/volume)Ordered By: Dr. Ash on 05-07-2023 Calcium [Mass/Vol] 8.8 mg/dL 8.5-10.1 [facility] Serum or plasma creatinine m easurement (mass/volume)Ordered By: Dr. Ash on 05-07-2023 Creatinine [Mass/Vol] 1.09 mg/dL 0.70-1.30 [facility] Comment on above: The validity of the calculated GFR & GFRAA in patients over 70 years has not been determined. Clinical correlation is essential. Serum or plasma urea nitroge n measurement (mass/volume)Ordered By: Dr. Ash on 05-07-2023 Urea nitrogen [Mass/Vol] 12 mg/dL 7-18 [facility] Thin prep Papanicolaou smear with manual screeningOrdered By: Dr. Ash on 05-07-2023 Thin prep Papanicolaou smear with manual screening 16 U/L 15-37 [facility] Thin prep Papanicolaou smear with manual screening 5 5-15 [facility] Basophil percentageOrdered B y: Dr. Metzger on 01-29-2023 Basophil percentage 3.1 mg/dL 2.5-4.9 [facility] Chloride [Moles/Vol] 103 mmol/L 98-107 [facility] Glucose [Mass/Vol] 73 mg/dL 74-106 [facility] Potassium [Moles/Vol] 4.1 mmol/L 3.5-5.1 [facility] Sodium [Moles/Vol] 137 mmol/L 136-145 [facility] Laboratory - Chemistry and C hemistry - challengeOrdered By: Dr. Metzger on 01-29-2023 CO2 [Moles/Vol] 29.0 mmol/L 21.0-32.0 [facility] Urea nitrogen/Creatinine [Mass ratio] 16.7 mg/mg 10-20 [facility] No Panel InformationOrdered By: Dr. Metzger on 01-29-2023 Estimated GFR (MDRD) Amer 80 mL/min >60 [facility] Comment on above: GFR Calc Estimated GFR (MDRD) Non-Af Amer 66 mL/min >60 [facility] Comment on above: Non- GFR Calc Serum or plasma albumin falguni urement (mass/volume)Ordered By: Dr. Metzger on 01-29-2023 Albumin [Mass/Vol] 3.5 g/dL 3.2-5.0 [facility] Serum or plasma calcium falguni urement (mass/volume)Ordered By: Dr. Metzger on 01-29-2023 Calcium [Mass/Vol] 9.2 mg/dL 8.5-10.1 [facility] Serum or plasma creatinine m easurement (mass/volume)Ordered By: Dr. Metzger on 01-29-2023 Creatinine [Mass/Vol] 1.14 mg/dL 0.70-1.30 [facility] Comment on above: The validity of the calculated GFR & GFRAA in patients over 70 years has not been determined. Clinical correlation is essential. Serum or plasma urea nitroge n measurement (mass/volume)Ordered By: Dr. Metzger on 01-29-2023 Urea nitrogen [Mass/Vol] 19 mg/dL 7-18 [facility] COVID-19 virus antigen assay Ordered By: Dr. Ash on 01-28-2023 SARS-CoV-2 (COVID-19) Ag IA.rapid Ql (Resp) Not detected Not Detect [facility] Comment on above: Normal Reference Ran ge: Not DetectedMethod:(RT-PCR) real-time reverse transcriptase PCRLuminex ELIESER Instrument*The Food and Drug Administration (FDA) has issued an Emergency Use Authorization (EAU) for the ELIESER SARS-CoV-2 Assay for the rapid detection of the virus that causes COVID-19. This test has been validated, but the FDAs independent review of this validation is pending.*Negative results do not preclude infection and should not be used as the sole basis for treatment or patient management. Optimum specimen types and timing for peak viral levels during infections caused by SARS-CoV-2 have not been determined. Collection of multiple specimens from the same patient may be necessary to detect the virus. The possibility of a false negative result should be considered if the patient has clinical presentation or has had recent exposure. COVID-19 virus antigen assay Ordered By: Dr. Ash on 01-24-2023 SARS-CoV-2 (COVID-19) Ag IA.rapid Ql (Resp) Detected Not Detect [facility] Comment on above: Normal Reference Ran ge: Not DetectedMethod:(RT-PCR) real-time reverse transcriptase PCRLuminex ELIESER Instrument*The Food and Drug Administration (FDA) has issued an Emergency Use Authorization (EAU) for the ELIESER SARS-CoV-2 Assay for the rapid detection of the virus that causes COVID-19. This test has been validated, but the FDAs independent review of this validation is pending.*Negative results do not preclude infection and should not be used as the sole basis for treatment or patient management. Optimum specimen types and timing for peak viral levels during infections caused by SARS-CoV-2 have not been determined. Collection of multiple specimens from the same patient may be necessary to detect the virus. The possibility of a false negative result should be considered if the patient has clinical presentation or has had recent exposure. COVID-19 virus antigen assay Ordered By: Dr. Ash on 01-18-2023 SARS-CoV-2 (COVID-19) Ag IA.rapid Ql (Resp) Detected Not Detect [facility] Comment on above: Normal Reference Ran ge: Not DetectedMethod:(RT-PCR) real-time reverse transcriptase PCRLuminex ELIESER Instrument*The Food and Drug Administration (FDA) has issued an Emergency Use Authorization (EAU) for the ELIESER SARS-CoV-2 Assay for the rapid detection of the virus that causes COVID-19. This test has been validated, but the FDAs independent review of this validation is pending.*Negative results do not preclude infection and should not be used as the sole basis for treatment or patient management. Optimum specimen types and timing for peak viral levels during infections caused by SARS-CoV-2 have not been determined. Collection of multiple specimens from the same patient may be necessary to detect the virus. The possibility of a false negative result should be considered if the patient has clinical presentation or has had recent exposure. No Panel InformationOrdered By: Dr. Ash on 01-18-2023 Influenza Types A,B Direct FA (WIL) [facility] RSV Ag EIAOrdered By: Dr. Kelly barcenas on 01-18-2023 RSV Ag Immune stain Ql (Tiss) [facility] Basophil percentageOrdered B y: Dr. Metzger on 01-17-2023 Basophil percentage 0-5 SEEN /hpf 0-5 [facility] Bilirubin Test strip Ql (U)O rdered By: Dr. Metzger on 01-17-2023 Bilirubin Ql (U) Negative Negative [facility] Ketones Test strip Ql (U)Ord ered By: Dr. Metzger on 01-17-2023 Ketones Ql (U) 5 mg/dl Negative [facility] Mucus LM Ql (Urine sed)Order ed By: Dr. Metzger on 01-17-2023 Mucus Ql (Urine sed) 1+ /hpf [facility] Nitrite Test strip Ql (U)Ord ered By: Dr. Metzger on 01-17-2023 Nitrite Ql (U) Negative Negative [facility] Protein Test strip Ql (U)Ord ered By: Dr. Metzger on 01-17-2023 Protein Ql (U) 30 mg/dl Negative [facility] Squamous epithelial cells de tection in urine sediment by light microscopyOrdered By: Dr. Metzger on 01-17-2023 Epithelial cells.squamous LM Ql (Urine sed) 0-5 SEEN /hpf 0-5 [facility] Urine blood detectionOrdered By: Dr. Metzger on 01-17-2023 RBC Ql (U) 50 /ul Negative [facility] RBC Ql (U) 5-10 SEEN /hpf 0-5 [facility] Urine clarityOrdered By: Dr. Metzger on 01-17-2023 Clarity (U) Clear Clear [facility] Urine color determinationOrd ered By: Dr. Metzger on 01-17-2023 Color (U) Tamara Yellow [facility] Urine glucose detectionOrder ed By: Dr. Metzger on 01-17-2023 Glucose Ql (U) 50 mg/dl Normal [facility] Urine leukocyte esterase det ection by dipstickOrdered By: Dr. Metzger on 01-17-2023 Leukocyte esterase Test strip Ql (U) 25 /ul Negative [facility] Urine pHOrdered By: Dr. Metzger on 01-17-2023 pH (U) 5.0 [pH] 5.0 - 8.0 [facility] Urine sediment bacteria coun t by microscopy (number/high power field)Ordered By: Dr. Metzger on 01-17-2023 Bacteria LM.HPF (Urine sed) [#/Area] RARE /hpf None Seen [facility] Urine specific gravity measu rementOrdered By: Dr. Metzger on 01-17-2023 Specific gravity (U) [Rel density] 1.025 1.002-1.03 0 [facility] Urobilinogen Auto test strip Ql (U)Ordered By: Dr. Metzger on 01-17-2023 Urobilinogen Ql (U) 1 mg/dl Normal [facility] Basophil percentageOrdered B y: Dr. Metzger on 01-16-2023 Basophil percentage 2.1 mg/dL 2.5-4.9 [facility] Chloride [Moles/Vol] 102 mmol/L 98-107 [facility] Glucose [Mass/Vol] 103 mg/dL 74-106 [facility] Comment on above: Fasting Glucose resu lt from 100 to 125 mg/dL suggests IMPAIRED HOMEOSTASIS per A.D.A. criteria. Potassium [Moles/Vol] 4.1 mmol/L 3.5-5.1 [facility] Sodium [Moles/Vol] 136 mmol/L 136-145 [facility] Laboratory - Chemistry and C hemistry - challengeOrdered By: Dr. Metzger on 01-16-2023 CO2 [Moles/Vol] 26.0 mmol/L 21.0-32.0 [facility] Urea nitrogen/Creatinine [Mass ratio] 14.0 mg/mg 10-20 [facility] No Panel InformationOrdered By: Dr. Metzger on 01-16-2023 Estimated GFR (MDRD) Amer 58 mL/min >60 [facility] Comment on above: GFR Calc Estimated GFR (MDRD) Non-Af Amer 48 mL/min >60 [facility] Comment on above: Non- GFR Calc Serum or plasma albumin falguni urement (mass/volume)Ordered By: Dr. Metzger on 01-16-2023 Albumin [Mass/Vol] 3.8 g/dL 3.2-5.0 [facility] Serum or plasma calcium falguni urement (mass/volume)Ordered By: Dr. Metzger on 01-16-2023 Calcium [Mass/Vol] 9.0 mg/dL 8.5-10.1 [facility] Serum or plasma creatinine m easurement (mass/volume)Ordered By: Dr. Metzger on 01-16-2023 Creatinine [Mass/Vol] 1.50 mg/dL 0.70-1.30 [facility] Comment on above: The validity of the calculated GFR & GFRAA in patients over 70 years has not been determined. Clinical correlation is essential. Serum or plasma urea nitroge n measurement (mass/volume)Ordered By: Dr. Metzger on 01-16-2023 Urea nitrogen [Mass/Vol] 21 mg/dL 7-18 [facility] Basophil percentageOrdered B y: Dr. Metzger on 12-25-2022 Basophil percentage 3.3 mg/dL 2.5-4.9 [facility] Chloride [Moles/Vol] 105 mmol/L 98-107 [facility] Glucose [Mass/Vol] 88 mg/dL 74-106 [facility] Potassium [Moles/Vol] 4.2 mmol/L 3.5-5.1 [facility] Sodium [Moles/Vol] 139 mmol/L 136-145 [facility] Laboratory - Chemistry and C hemistry - challengeOrdered By: Dr. Metzger on 12-25-2022 CO2 [Moles/Vol] 28.0 mmol/L 21.0-32.0 [facility] Urea nitrogen/Creatinine [Mass ratio] 10.3 mg/mg 10-20 [facility] No Panel InformationOrdered By: Dr. Metzger on 12-25-2022 Estimated GFR (MDRD) Amer 71 mL/min >60 [facility] Comment on above: GFR Calc Estimated GFR (MDRD) Non-Af Amer 59 mL/min >60 [facility] Comment on above: Non- GFR Calc Serum or plasma albumin falguni urement (mass/volume)Ordered By: Dr. Metzger on 12-25-2022 Albumin [Mass/Vol] 3.7 g/dL 3.2-5.0 [facility] Serum or plasma calcium falguni urement (mass/volume)Ordered By: Dr. Metzger on 12-25-2022 Calcium [Mass/Vol] 9.2 mg/dL 8.5-10.1 [facility] Serum or plasma creatinine m easurement (mass/volume)Ordered By: Dr. Metzger on 12-25-2022 Creatinine [Mass/Vol] 1.26 mg/dL 0.70-1.30 [facility] Comment on above: The validity of the calculated GFR & GFRAA in patients over 70 years has not been determined. Clinical correlation is essential. Serum or plasma urea nitroge n measurement (mass/volume)Ordered By: Dr. Metzger on 12-25-2022 Urea nitrogen [Mass/Vol] 13 mg/dL 7-18 [facility] Ova and parasitesOrdered By: Dr. Ash on 11-20-2022 Ova and parasites identified LM Nom (Unsp spec) [facility] Absolute lymphocyte countOrd ered By: Dr. Ash on 11-12-2022 Lymphocytes Auto (Unsp spec) [#/Vol] 1.02 10*3/uL 0.83-4.51 [facility] Basophil percentageOrdered B y: Dr. Ash on 11-12-2022 Basophils/100 WBC (Bld) 1.1 % 0-1 [facility] Bilirubin [Mass/Vol] 0.60 mg/dL 0.20-1.00 [facility] Comment on above: For patients on eltr ombopag therapy, use of Dimension [place] TBIL is not recommended. Chloride [Moles/Vol] 103 mmol/L 98-107 [facility] Eosinophils/100 WBC (Bld) 0.7 % 0-5 [facility] Glucose [Mass/Vol] 96 mg/dL 74-106 [facility] Neutrophils (Bld) [#/Vol] 3.8 10*3/uL 2.0-7.7 [facility] Neutrophils/100 WBC (Bld) 70.6 % 47-70 [facility] Potassium [Moles/Vol] 4.3 mmol/L 3.5-5.1 [facility] Protein [Mass/Vol] 7.7 g/dL 6.4-8.2 [facility] Sodium [Moles/Vol] 136 mmol/L 136-145 [facility] [facility] WBC (Bld) [#/Vol] 5.4 10*3/uL 4.4-11.0 [facility] Blood erythrocytes count (nu mber/volume)Ordered By: Dr. Ash on 11-12-2022 RBC (Bld) [#/Vol] 4.59 10*6/uL 4.6-6.2 [facility] Blood hemoglobin measurement (mass/volume)Ordered By: Dr. Ash on 11-12-2022 Hemoglobin (Bld) [Mass/Vol] 13.7 g/dL 13.0-16.5 [facility] Blood lymphocytes/100 leukoc ytesOrdered By: Dr. Ash on 11-12-2022 Lymphocytes/100 WBC (Bld) 19.0 % 19-41 [facility] Blood monocytes/100 leukocyt esOrdered By: Dr. Ash on 11-12-2022 Monocytes/100 WBC (Bld) 8.4 % 0-10 [facility] Blood platelet mean volumeOr dered By: Dr. Ash on 11-12-2022 Platelet mean volume (Bld) [Entitic vol] 11.8 fL 6.2-12.0 [facility] Determination of erythrocyte mean corpuscular volume (MCV)Ordered By: Dr. Ash on 11-12-2022 MCV (RBC) [Entitic vol] 92.8 fL 80-94 [facility] Hematocrit Auto (Bld) [Volum e fraction]Ordered By: Dr. Ash on 11-12-2022 Hematocrit (Bld) [Volume fraction] 42.6 % 40-54 [facility] Laboratory - Chemistry and C hemistry - challengeOrdered By: Dr. Ash on 11-12-2022 ALP [Catalytic activity/Vol] 76 U/L 45-117 [facility] ALT [Catalytic activity/Vol] 26 U/L 16-61 [facility] CO2 [Moles/Vol] 24.0 mmol/L 21.0-32.0 [facility] Globulin (S) [Mass/Vol] 3.9 g/dL 2.2-4.2 [facility] Urea nitrogen/Creatinine [Mass ratio] 10.9 mg/mg 10-20 [facility] Laboratory - Hematology and Cell countsOrdered By: Dr. Ash on 11-12-2022 Erythrocyte distribution width (RBC) [Entitic vol] 48.3 fL 35.1-43.9 [facility] Erythrocyte distribution width (RBC) [Ratio] 14.2 % 11.6-14.6 [facility] Immature granulocytes/100 WBC (Bld) 0.200 % 0.0-0.9 [facility] Comment on above: IG% - Immature Granu locytes (promyelocytes, myelocytes and metamyelocytes) > 1% indicates that a LEFT SHIFT is Present. MCH (RBC) [Entitic mass] 29.8 pg 27.0-32.0 [facility] Nucleated RBC/100 WBC (Bld) [Ratio] 0 % 0-5 [facility] MCHC Auto (RBC) [Mass/Vol]Or dered By: Dr. Ash on 11-12-2022 MCHC (RBC) [Mass/Vol] 32.2 g/dL 32-36 [facility] No Panel InformationOrdered By: Dr. Ash on 11-12-2022 Estimated GFR (MDRD) Amer 49 mL/min >60 [facility] Comment on above: GFR Calc Estimated GFR (MDRD) Non-Af Amer 40 mL/min >60 [facility] Comment on above: Non- GFR Calc Thyroid Stimulating Hormone (TSH) 1.31 uIU/mL 0.358-3.74 [facility] Vitamin D 25-Hydroxy 26.5 ng/mL [facility] Comment on above: Vitamin D 25(OH) Sta tus Range Deficiency <20 ng/mL (50nmol/L) Insufficiency 20 - 30 ng/mL (50 - 75 nmol/L) Sufficiency 30 - 100 ng/mL (75 - 250 nmol/L) Toxicity >100 ng/mL (>250 nmol/L) Platelets bldOrdered By: Dr. Ash on 11-12-2022 Platelets (Bld) [#/Vol] 144 10*3/uL 150-450 [facility] Serum or plasma albumin falguni urement (mass/volume)Ordered By: Dr. Ash on 11-12-2022 Albumin [Mass/Vol] 3.8 g/dL 3.2-5.0 [facility] Serum or plasma albumin/glob ulin mass ratioOrdered By: Dr. Ash on 11-12-2022 Albumin/Globulin [Mass ratio] 1.0 {ratio} 0.9-2.4 [facility] Serum or plasma calcium falguni urement (mass/volume)Ordered By: Dr. Ash on 11-12-2022 Calcium [Mass/Vol] 9.0 mg/dL 8.5-10.1 [facility] Serum or plasma creatinine m easurement (mass/volume)Ordered By: Dr. Ash on 11-12-2022 Creatinine [Mass/Vol] 1.75 mg/dL 0.70-1.30 [facility] Comment on above: The validity of the calculated GFR & GFRAA in patients over 70 years has not been determined. Clinical correlation is essential. Serum or plasma urea nitroge n measurement (mass/volume)Ordered By: Dr. Ash on 11-12-2022 Urea nitrogen [Mass/Vol] 19 mg/dL 7-18 [facility] Thin prep Papanicolaou smear with manual screeningOrdered By: Dr. Ash on 11-12-2022 Thin prep Papanicolaou smear with manual screening 16 U/L 15-37 [facility] Thin prep Papanicolaou smear with manual screening 9 5-15 [facility] Absolute lymphocyte countOrd ered By: Dr. Giron on 11-05-2022 Lymphocytes Auto (Unsp spec) [#/Vol] 1.29 10*3/uL 0.83-4.51 [facility] Basophil percentageOrdered B y: Dr. Giron on 11-05-2022 Basophils/100 WBC (Bld) 1.0 % 0-1 [facility] Chloride [Moles/Vol] 104 mmol/L 98-107 [facility] Eosinophils/100 WBC (Bld) 2.1 % 0-5 [facility] Glucose [Mass/Vol] 117 mg/dL 74-106 [facility] Comment on above: Fasting Glucose resu lt from 100 to 125 mg/dL suggests IMPAIRED HOMEOSTASIS per A.D.A. criteria. Neutrophils (Bld) [#/Vol] 3.7 10*3/uL 2.0-7.7 [facility] Neutrophils/100 WBC (Bld) 65.0 % 47-70 [facility] Potassium [Moles/Vol] 3.7 mmol/L 3.5-5.1 [facility] Sodium [Moles/Vol] 138 mmol/L 136-145 [facility] WBC (Bld) [#/Vol] 5.8 10*3/uL 4.4-11.0 [facility] Blood erythrocytes count (nu mber/volume)Ordered By: Dr. Giron on 11-05-2022 RBC (Bld) [#/Vol] 4.81 10*6/uL 4.6-6.2 [facility] Blood hemoglobin measurement (mass/volume)Ordered By: Dr. Giron on 11-05-2022 Hemoglobin (Bld) [Mass/Vol] 14.3 g/dL 13.0-16.5 [facility] Blood lymphocytes/100 leukoc ytesOrdered By: Dr. Giron on 11-05-2022 Lymphocytes/100 WBC (Bld) 22.4 % 19-41 [facility] Blood manual differential co mment interpretation (narrative result)Ordered By: Dr. Giron on 11-05-2022 Manual differential comment Db (Bld) [Interp] SCANNED [facility] Blood monocytes/100 leukocyt esOrdered By: Dr. Giron on 11-05-2022 Monocytes/100 WBC (Bld) 9.2 % 0-10 [facility] Blood platelet mean volumeOr dered By: Dr. Giron on 11-05-2022 Platelet mean volume (Bld) [Entitic vol] 11.4 fL 6.2-12.0 [facility] Determination of erythrocyte mean corpuscular volume (MCV)Ordered By: Dr. Giron on 11-05-2022 MCV (RBC) [Entitic vol] 92.1 fL 80-94 [facility] Hematocrit Auto (Bld) [Volum e fraction]Ordered By: Dr. Giron on 11-05-2022 Hematocrit (Bld) [Volume fraction] 44.3 % 40-54 [facility] Laboratory - Chemistry and C hemistry - challengeOrdered By: Dr. Giron on 11-05-2022 CO2 [Moles/Vol] 29.0 mmol/L 21.0-32.0 [facility] Urea nitrogen/Creatinine [Mass ratio] 11.0 mg/mg 10-20 [facility] Laboratory - Hematology and Cell countsOrdered By: Dr. Giron on 11-05-2022 Erythrocyte distribution width (RBC) [Entitic vol] 48.2 fL 35.1-43.9 [facility] Erythrocyte distribution width (RBC) [Ratio] 14.2 % 11.6-14.6 [facility] Immature granulocytes/100 WBC (Bld) 0.300 % 0.0-0.9 [facility] Comment on above: IG% - Immature Granu locytes (promyelocytes, myelocytes and metamyelocytes) > 1% indicates that a LEFT SHIFT is Present. MCH (RBC) [Entitic mass] 29.7 pg 27.0-32.0 [facility] Nucleated RBC/100 WBC (Bld) [Ratio] 0 % 0-5 [facility] MCHC Auto (RBC) [Mass/Vol]Or dered By: Dr. Giron on 11-05-2022 MCHC (RBC) [Mass/Vol] 32.3 g/dL 32-36 [facility] No Panel InformationOrdered By: Dr. Giron on 11-05-2022 Troponin I High Sensitivity 10 pg/mL 3.0-78.0 [facility] Comment on above: Please Note: New Shelbi t Units and Gender Specific Reference Ranges. For more information see Policy Stat Procedure [place] High Sensitivity Troponin (TNIH) and attachments. Estimated Creatinine Clearance Calc 41.22 ml/min [facility] Estimated GFR (MDRD) Amer 61 mL/min >60 [facility] Comment on above: GFR Calc Estimated GFR (MDRD) Non-Af Amer 50 mL/min >60 [facility] Comment on above: Non- GFR Calc Platelets bldOrdered By: Dr. Giron on 11-05-2022 Platelets (Bld) [#/Vol] 87 10*3/uL 150-450 [facility] Serum or plasma calcium falguni urement (mass/volume)Ordered By: Dr. Giron on 11-05-2022 Calcium [Mass/Vol] 9.3 mg/dL 8.5-10.1 [facility] Serum or plasma creatinine m easurement (mass/volume)Ordered By: Dr. Giron on 11-05-2022 Creatinine [Mass/Vol] 1.45 mg/dL 0.70-1.30 [facility] Comment on above: The validity of the calculated GFR & GFRAA in patients over 70 years has not been determined. Clinical correlation is essential. Serum or plasma urea nitroge n measurement (mass/volume)Ordered By: Dr. Giron on 11-05-2022 Urea nitrogen [Mass/Vol] 16 mg/dL 7-18 [facility] Thin prep Papanicolaou smear with manual screeningOrdered By: Dr. Giron on 11-05-2022 Thin prep Papanicolaou smear with manual screening 5 5-15 [facility] No Panel InformationOrdered By: Dr. Ash on 10-22-2022 RBC Folate Hemolysate 497.0 ng/mL Not Estab. Wo [facility] Red Blood Cell Folate 1192 ng/mL >498 [facility] Comment on above: Performed at: [facility] [place] [id number] Director: Irwin Cantu PhD, Phone: [phone] Thin prep Papanicolaou smear with manual screeningOrdered By: Dr. Ash on 10-22-2022 Thin prep Papanicolaou smear with manual screening 41.7 % 37.5-51.0 [facility] Basophil percentageOrdered B y: Dr. Ash on 10-16-2022 Chloride [Moles/Vol] 103 mmol/L 98-107 [facility] Glucose [Mass/Vol] 109 mg/dL 74-106 [facility] Comment on above: Fasting Glucose resu lt from 100 to 125 mg/dL suggests IMPAIRED HOMEOSTASIS per A.D.A. criteria. Potassium [Moles/Vol] 3.5 mmol/L 3.5-5.1 [facility] Sodium [Moles/Vol] 139 mmol/L 136-145 [facility] Erythrocyte sedimentation ra teOrdered By: Dr. Ash on 10-16-2022 ESR (Bld) [Velocity] 11 mm/h 0-20 [facility] Laboratory - Chemistry and C hemistry - challengeOrdered By: Dr. Ash on 10-16-2022 CO2 [Moles/Vol] 28.0 mmol/L 21.0-32.0 [facility] Urea nitrogen/Creatinine [Mass ratio] 14.7 mg/mg 10-20 [facility] No Panel InformationOrdered By: Dr. Ash on 10-16-2022 Estimated GFR (MDRD) Amer 79 mL/min >60 [facility] Comment on above: GFR Calc Estimated GFR (MDRD) Non-Af Amer 65 mL/min >60 [facility] Comment on above: Non- GFR Calc Serum or plasma C reactive p rotein measurement (mass/volume)Ordered By: Dr. Ash on 10-16-2022 CRP [Mass/Vol] mg/L 0.0-3.0 [facility] Comment on above: C-Reactive Protein ( CRP) provides useful information for thediagnosis, therapy and monitoring of inflammatory processesand associated diseases. For the evaluation of Relative Riskfor Cardiovascular Disease, a High Sensitivity CRP (HSCRP)should be ordered. Serum or plasma calcium falguni urement (mass/volume)Ordered By: Dr. Ash on 10-16-2022 Calcium [Mass/Vol] 9.1 mg/dL 8.5-10.1 [facility] Serum or plasma creatinine m easurement (mass/volume)Ordered By: Dr. Ash on 10-16-2022 Creatinine [Mass/Vol] 1.16 mg/dL 0.70-1.30 [facility] Comment on above: The validity of the calculated GFR & GFRAA in patients over 70 years has not been determined. Clinical correlation is essential. Serum or plasma urea nitroge n measurement (mass/volume)Ordered By: Dr. Ash on 10-16-2022 Urea nitrogen [Mass/Vol] 17 mg/dL 7-18 [facility] Thin prep Papanicolaou smear with manual screeningOrdered By: Dr. Ash on 10-16-2022 Thin prep Papanicolaou smear with manual screening 8 5-15 [facility] Culture, urineOrdered By: Dr Richard Ash on 09-29-2022 Bacteria identified Cx Nom (U) Culture exhibits no growth. [facility] Absolute lymphocyte countOrd ered By: Dr. Ash on 09-26-2022 Lymphocytes Auto (Unsp spec) [#/Vol] 1.24 10*3/uL 0.83-4.51 [facility] Basophil percentageOrdered B y: Dr. Ash on 09-26-2022 Amylase [Catalytic activity/Vol] 68 U/L 25-115 [facility] Basophils/100 WBC (Bld) 1.6 % 0-1 [facility] Bilirubin [Mass/Vol] 0.60 mg/dL 0.20-1.00 [facility] Comment on above: For patients on eltr ombopag therapy, use of Dimension [place] TBIL is not recommended. Chloride [Moles/Vol] 104 mmol/L 98-107 [facility] Eosinophils/100 WBC (Bld) 3.0 % 0-5 [facility] Glucose [Mass/Vol] 94 mg/dL 74-106 [facility] Neutrophils (Bld) [#/Vol] 3.1 10*3/uL 2.0-7.7 [facility] Neutrophils/100 WBC (Bld) 60.8 % 47-70 [facility] Potassium [Moles/Vol] 4.2 mmol/L 3.5-5.1 [facility] Protein [Mass/Vol] 8.1 g/dL 6.4-8.2 [facility] Sodium [Moles/Vol] 137 mmol/L 136-145 [facility] WBC (Bld) [#/Vol] 5.0 10*3/uL 4.4-11.0 [facility] Blood erythrocytes count (nu mber/volume)Ordered By: Dr. Ash on 09-26-2022 RBC (Bld) [#/Vol] 4.40 10*6/uL 4.6-6.2 [facility] Blood hemoglobin measurement (mass/volume)Ordered By: Dr. Ash on 09-26-2022 Hemoglobin (Bld) [Mass/Vol] 13.3 g/dL 13.0-16.5 [facility] Blood lymphocytes/100 leukoc ytesOrdered By: Dr. Ash on 09-26-2022 Lymphocytes/100 WBC (Bld) 24.7 % 19-41 [facility] Blood monocytes/100 leukocyt esOrdered By: Dr. Ash on 09-26-2022 Monocytes/100 WBC (Bld) 9.7 % 0-10 [facility] Blood platelet mean volumeOr dered By: Dr. Ash on 09-26-2022 Platelet mean volume (Bld) [Entitic vol] 11.5 fL 6.2-12.0 [facility] Determination of erythrocyte mean corpuscular volume (MCV)Ordered By: Dr. Ash on 09-26-2022 MCV (RBC) [Entitic vol] 91.1 fL 80-94 [facility] Hematocrit Auto (Bld) [Volum e fraction]Ordered By: Dr. Ash on 09-26-2022 Hematocrit (Bld) [Volume fraction] 40.1 % 40-54 [facility] Laboratory - Chemistry and C hemistry - challengeOrdered By: Dr. Ash on 09-26-2022 ALP [Catalytic activity/Vol] 78 U/L 45-117 [facility] ALT [Catalytic activity/Vol] 20 U/L 16-61 [facility] CO2 [Moles/Vol] 27.0 mmol/L 21.0-32.0 [facility] Globulin (S) [Mass/Vol] 4.0 g/dL 2.2-4.2 [facility] Lipase [Catalytic activity/Vol] 181 U/L 73-393 [facility] Urea nitrogen/Creatinine [Mass ratio] 13.1 mg/mg 10-20 [facility] Laboratory - Hematology and Cell countsOrdered By: Dr. Ash on 09-26-2022 Erythrocyte distribution width (RBC) [Entitic vol] 47.8 fL 35.1-43.9 [facility] Erythrocyte distribution width (RBC) [Ratio] 14.0 % 11.6-14.6 [facility] Immature granulocytes/100 WBC (Bld) 0.200 % 0.0-0.9 [facility] Comment on above: IG% - Immature Granu locytes (promyelocytes, myelocytes and metamyelocytes) > 1% indicates that a LEFT SHIFT is Present. MCH (RBC) [Entitic mass] 30.2 pg 27.0-32.0 [facility] Nucleated RBC/100 WBC (Bld) [Ratio] 0 % 0-5 [facility] MCHC Auto (RBC) [Mass/Vol]Or dered By: Dr. Ash on 09-26-2022 MCHC (RBC) [Mass/Vol] 33.2 g/dL 32-36 [facility] No Panel InformationOrdered By: Dr. Ash on 09-26-2022 Estimated GFR (MDRD) Amer 61 mL/min >60 [facility] Comment on above: GFR Calc Estimated GFR (MDRD) Non-Af Amer 50 mL/min >60 [facility] Comment on above: Non- GFR Calc Platelets bldOrdered By: Dr. Ash on 09-26-2022 Platelets (Bld) [#/Vol] 104 10*3/uL 150-450 [facility] Serum or plasma albumin falguni urement (mass/volume)Ordered By: Dr. Ash on 09-26-2022 Albumin [Mass/Vol] 4.1 g/dL 3.2-5.0 [facility] Serum or plasma albumin/glob ulin mass ratioOrdered By: Dr. Ash on 09-26-2022 Albumin/Globulin [Mass ratio] 1.0 {ratio} 0.9-2.4 [facility] Serum or plasma calcium falguni urement (mass/volume)Ordered By: Dr. Ash on 09-26-2022 Calcium [Mass/Vol] 9.1 mg/dL 8.5-10.1 [facility] Serum or plasma creatinine m easurement (mass/volume)Ordered By: Dr. Ash on 09-26-2022 Creatinine [Mass/Vol] 1.45 mg/dL 0.70-1.30 [facility] Comment on above: The validity of the calculated GFR & GFRAA in patients over 70 years has not been determined. Clinical correlation is essential. Serum or plasma urea nitroge n measurement (mass/volume)Ordered By: Dr. Ash on 09-26-2022 Urea nitrogen [Mass/Vol] 19 mg/dL 7-18 [facility] Thin prep Papanicolaou smear with manual screeningOrdered By: Dr. Ash on 09-26-2022 Thin prep Papanicolaou smear with manual screening 16 U/L 15-37 [facility] Thin prep Papanicolaou smear with manual screening 6 5-15 [facility] Absolute lymphocyte counton 08-08-2022 Lymphocytes Auto (Unsp spec) [#/Vol] 1.12 10*3/uL 0.83-4.51 [facility] Work Phone: Basophil percentageon 2021 Basophils/100 WBC (Bld) 1.2 % 0-1 [facility] Work Phone: Bilirubin [Mass/Vol] 0.30 mg/dL 0.20-1.00 [facility] Work Phone: [phone] Comment on above: For patients on eltr ombopag therapy, use of Dimension [place] TBIL is not recommended. Chloride [Moles/Vol] 107 mmol/L 98-107 [facility] Work Phone: Eosinophils/100 WBC (Bld) 5.5 % 0-5 [facility] Work Phone: [phone] Glucose [Mass/Vol] 107 mg/dL 74-106 [facility] Work Phone: [phone] Comment on above: Fasting Glucose resu lt from 100 to 125 mg/dL suggests IMPAIRED HOMEOSTASIS per A.D.A. criteria. Neutrophils (Bld) [#/Vol] 3.0 10*3/uL 2.0-7.7 [facility] Work Phone: Neutrophils/100 WBC (Bld) 61.2 % 47-70 [facility] Work Phone: Potassium [Moles/Vol] 3.7 mmol/L 3.5-5.1 [facility] Work Phone: Protein [Mass/Vol] 7.3 g/dL 6.4-8.2 [facility] Work Phone: Sodium [Moles/Vol] 141 mmol/L 136-145 [facility] Work Phone: [phone] WBC (Bld) [#/Vol] 4.9 10*3/uL 4.4-11.0 [facility] Work Phone: Blood erythrocytes count (nu mber/volume)on 08-08-2022 RBC (Bld) [#/Vol] 4.44 10*6/uL 4.6-6.2 [facility] Work Phone: Blood hemoglobin measurement (mass/volume)on 08-08-2022 Hemoglobin (Bld) [Mass/Vol] 13.0 g/dL 13.0-16.5 [facility] Work Phone: Blood lymphocytes/100 leukoc yteson 08-08-2022 Lymphocytes/100 WBC (Bld) 22.8 % 19-41 [facility] Work Phone: Blood monocytes/100 leukocyt eson 08-08-2022 Monocytes/100 WBC (Bld) 9.1 % 0-10 [facility] Work Phone: Blood platelet mean volumeon 08-08-2022 Platelet mean volume (Bld) [Entitic vol] 11.1 fL 6.2-12.0 [facility] Work Phone: Determination of erythrocyte mean corpuscular volume (MCV)on 08-08-2022 MCV (RBC) [Entitic vol] 91.9 fL 80-94 [facility] Work Phone: Hematocrit Auto (Bld) [Volum e fraction]on 08-08-2022 Hematocrit (Bld) [Volume fraction] 40.8 % 40-54 [facility] Work Phone: [phone] Laboratory - Chemistry and C hemistry - challengeon 08-08-2022 ALP [Catalytic activity/Vol] 98 U/L 45-117 [facility] Work Phone: ALT [Catalytic activity/Vol] 19 U/L 16-61 [facility] Work Phone: CO2 [Moles/Vol] 28.0 mmol/L 21.0-32.0 [facility] Work Phone: Globulin (S) [Mass/Vol] 3.9 g/dL 2.2-4.2 [facility] Work Phone: Urea nitrogen/Creatinine [Mass ratio] 13.6 mg/mg 10-20 [facility] Work Phone: Laboratory - Hematology and Cell countson 08-08-2022 Erythrocyte distribution width (RBC) [Entitic vol] 47.2 fL 35.1-43.9 [facility] Work Phone: Erythrocyte distribution width (RBC) [Ratio] 13.9 % 11.6-14.6 [facility] Work Phone: Immature granulocytes/100 WBC (Bld) 0.200 % 0.0-0.9 [facility] Work Phone: Comment on above: IG% - Immature Granu locytes (promyelocytes, myelocytes and metamyelocytes) > 1% indicates that a LEFT SHIFT is Present. MCH (RBC) [Entitic mass] 29.3 pg 27.0-32.0 [facility] Work Phone: Nucleated RBC/100 WBC (Bld) [Ratio] 0 % 0-5 [facility] Work Phone: MCHC Auto (RBC) [Mass/Vol]on 08-08-2022 MCHC (RBC) [Mass/Vol] 31.9 g/dL 32-36 [facility] Work Phone: No Panel Informationon 08-08 Estimated GFR (MDRD) Amer 77 mL/min >60 [facility] Work Phone: Comment on above: GFR Calc Estimated GFR (MDRD) Non-Af Amer 64 mL/min >60 [facility] Work Phone: Comment on above: Non- GFR Calc Thyroid Stimulating Hormone (TSH) 1.51 uIU/mL 0.358-3.74 [facility] Work Phone: Vitamin D 25-Hydroxy 33.0 ng/mL [facility] Work Phone: Comment on above: Vitamin D 25(OH) Sta tus Range Deficiency <20 ng/mL (50nmol/L) Insufficiency 20 - 30 ng/mL (50 - 75 nmol/L) Sufficiency 30 - 100 ng/mL (75 - 250 nmol/L) Toxicity >100 ng/mL (>250 nmol/L) Platelets bldon 08-08-2022 Platelets (Bld) [#/Vol] 117 10*3/uL 150-450 [facility] Work Phone: Serum or plasma albumin falguni urement (mass/volume)on 08-08-2022 Albumin [Mass/Vol] 3.4 g/dL 3.2-5.0 [facility] Work Phone: Serum or plasma albumin/glob ulin mass ratioon 08-08-2022 Albumin/Globulin [Mass ratio] 0.9 {ratio} 0.9-2.4 [facility] Work Phone: Serum or plasma calcium falguni urement (mass/volume)on 08-08-2022 Calcium [Mass/Vol] 8.9 mg/dL 8.5-10.1 [facility] Work Phone: Serum or plasma creatinine m easurement (mass/volume)on 08-08-2022 Creatinine [Mass/Vol] 1.18 mg/dL 0.70-1.30 [facility] Work Phone: Comment on above: The validity of the calculated GFR & GFRAA in patients over 70 years has not been determined. Clinical correlation is essential. Serum or plasma urea nitroge n measurement (mass/volume)on 08-08-2022 Urea nitrogen [Mass/Vol] 16 mg/dL 7-18 [facility] Work Phone: Thin prep Papanicolaou smear with manual screeningon 08-08-2022 Thin prep Papanicolaou smear with manual screening 17 U/L 15-37 [facility] Work Phone: Thin prep Papanicolaou smear with manual screening 6 5-15 [facility] Work Phone: Basophil percentageon 2021 Basophil percentage < 0.9 mg/dL 0.70-1.30 [facility] Work Phone: No Panel Informationon 07-20 Bedside Estimated GFR (eGFR) > 60.0000 mL/min >60 [facility] Work Phone: Absolute lymphocyte counton 05-10-2022 Lymphocytes Auto (Unsp spec) [#/Vol] 1.24 10*3/uL 0.83-4.51 [facility] Work Phone: Comment on above: Previous reported re sult: 1.18 X10^3/uLEdited by: SHIRLEY on 05/10/22:1204 Basophil percentageon 2021 Basophils/100 WBC (Bld) 1.2 % 0-1 [facility] Work Phone: Comment on above: Previous reported re sult: 1.3 %Edited by: NexPlanarRUBEN on 05/10/22:1204 Bilirubin [Mass/Vol] 0.50 mg/dL 0.20-1.00 [facility] Work Phone: Comment on above: For patients on eltr ombopag therapy, use of Dimension [place] TBIL is not recommended. Chloride [Moles/Vol] 106 mmol/L 98-107 [facility] Work Phone: Eosinophils/100 WBC (Bld) 4.8 % 0-5 [facility] Work Phone: Comment on above: Previous reported re sult: 5.0 %Edited by: NexPlanarRUBEN on 05/10/22:1204 Glucose [Mass/Vol] 171 mg/dL 74-106 [facility] Work Phone: Comment on above: Fasting Glucose resu lt greater than or equal to 126 mg/dL suggests DIABETES MELLITUS per A.D.A. criteria. Neutrophils (Bld) [#/Vol] 3.7 10*3/uL 2.0-7.7 [facility] Work Phone: Comment on above: Previous reported re sult: 3.6 X10^3/uLEdited by: NexPlanarRUBEN on 05/10/22:1204 Neutrophils/100 WBC (Bld) 64.9 % 47-70 [facility] Work Phone: Comment on above: Previous reported re sult: 64.8 %Edited by: NexPlanarRUBEN on 05/10/22:1203 Potassium [Moles/Vol] 3.4 mmol/L 3.5-5.1 [facility] Work Phone: Protein [Mass/Vol] 7.4 g/dL 6.4-8.2 [facility] Work Phone: Sodium [Moles/Vol] 139 mmol/L 136-145 [facility] Work Phone: WBC (Bld) [#/Vol] 5.6 10*3/uL 4.4-11.0 [facility] Work Phone: Blood erythrocytes count (nu mber/volume)on 05-10-2022 RBC (Bld) [#/Vol] 4.41 10*6/uL 4.6-6.2 [facility] Work Phone: Comment on above: Previous reported re sult: 4.42 M/sc4Leaivq by: SHIRLEY on 05/10/22:1203 Blood hemoglobin measurement (mass/volume)on 05-10-2022 Hemoglobin (Bld) [Mass/Vol] 12.8 g/dL 13.0-16.5 [facility] Work Phone: Blood lymphocytes/100 leukoc yteson 05-10-2022 Lymphocytes/100 WBC (Bld) 22.0 % 19-41 [facility] Work Phone: Comment on above: Previous reported re sult: 21.3 %Edited by: SHIRLEY on 05/10/22:1203 Blood monocytes/100 leukocyt eson 05-10-2022 Monocytes/100 WBC (Bld) 6.7 % 0-10 [facility] Work Phone: Comment on above: Previous reported re sult: 7.4 %Edited by: SHIRLEY on 05/10/22:1204 Blood platelet mean volumeon 05-10-2022 Platelet mean volume (Bld) [Entitic vol] 11.4 fL 6.2-12.0 [facility] Work Phone: Comment on above: Previous reported re sult: 11.5 flEdited by: SHIRLEY on 05/10/22:1203 Determination of erythrocyte mean corpuscular volume (MCV)on 05-10-2022 MCV (RBC) [Entitic vol] 91.4 fL 80-94 [facility] Work Phone: Comment on above: Previous reported re sult: 91.6 fLEdited by: SHIRLEY on 05/10/22:1203 Hematocrit Auto (Bld) [Volum e fraction]on 05-10-2022 Hematocrit (Bld) [Volume fraction] 40.3 % 40-54 [facility] Work Phone: Comment on above: Previous reported re sult: 40.5 %Edited by: NexPlanarRUBEN on 05/10/22:1203 Laboratory - Chemistry and C hemistry - challengeon 05-10-2022 ALP [Catalytic activity/Vol] 85 U/L 45-117 [facility] Work Phone: ALT [Catalytic activity/Vol] 16 U/L 16-61 [facility] Work Phone: CO2 [Moles/Vol] 26.0 mmol/L 21.0-32.0 [facility] Work Phone: Globulin (S) [Mass/Vol] 3.9 g/dL 2.2-4.2 [facility] Work Phone: Urea nitrogen/Creatinine [Mass ratio] 9.5 mg/mg 10-20 [facility] Work Phone: Laboratory - Hematology and Cell countson 05-10-2022 Erythrocyte distribution width (RBC) [Entitic vol] 46.9 fL 35.1-43.9 [facility] Work Phone: Comment on above: Previous reported re sult: 47.0 flEdited by: SHIRLEY on 05/10/22:1203 Erythrocyte distribution width (RBC) [Ratio] 13.7 % 11.6-14.6 [facility] Work Phone: Comment on above: Previous reported re sult: 13.8 %Edited by: [employer]PlanarRUBEN on 05/10/22:1203 Immature granulocytes/100 WBC (Bld) 0.400 % 0.0-0.9 [facility] Work Phone: Comment on above: Previous reported re sult: 0.200 %Edited by: [employer]PlanarRUBEN on 05/10/22:1204IG% - Immature Granulocytes (promyelocytes, myelocytes and metamyelocytes) > 1% indicates that a LEFT SHIFT is Present. MCH (RBC) [Entitic mass] 29.0 pg 27.0-32.0 [facility] Work Phone: Nucleated RBC/100 WBC (Bld) [Ratio] 0 % 0-5 [facility] Work Phone: MCHC Auto (RBC) [Mass/Vol]on 05-10-2022 MCHC (RBC) [Mass/Vol] 31.8 g/dL 32-36 [facility] Work Phone: Comment on above: Previous reported re sult: 31.6 g/dLEdited by: [employer] on 05/10/22:1203 No Panel Informationon 05-10 Estimated GFR (MDRD) Amer 71 mL/min >60 [facility] Work Phone: Comment on above: GFR Calc Estimated GFR (MDRD) Non-Af Amer 59 mL/min >60 [facility] Work Phone: Comment on above: Non- GFR Calc Thyroid Stimulating Hormone (TSH) 0.85 uIU/mL 0.358-3.74 [facility] Work Phone: Vitamin D 25-Hydroxy 26.4 ng/mL [facility] Work Phone: Comment on above: Vitamin D 25(OH) Sta tus Range Deficiency <20 ng/mL (50nmol/L) Insufficiency 20 - 30 ng/mL (50 - 75 nmol/L) Sufficiency 30 - 100 ng/mL (75 - 250 nmol/L) Toxicity >100 ng/mL (>250 nmol/L) Platelets bldon 05-10-2022 Platelets (Bld) [#/Vol] 142 10*3/uL 150-450 [facility] Work Phone: Comment on above: Previous reported re sult: 128 [id number] by: [employer] on 05/10/22:1203 Serum or plasma albumin falguni urement (mass/volume)on 05-10-2022 Albumin [Mass/Vol] 3.5 g/dL 3.2-5.0 [facility] Work Phone: Serum or plasma albumin/glob ulin mass ratioon 05-10-2022 Albumin/Globulin [Mass ratio] 0.9 {ratio} 0.9-2.4 [facility] Work Phone: Serum or plasma calcium falguni urement (mass/volume)on 05-10-2022 Calcium [Mass/Vol] 8.6 mg/dL 8.5-10.1 [facility] Work Phone: Serum or plasma creatinine m easurement (mass/volume)on 05-10-2022 Creatinine [Mass/Vol] 1.26 mg/dL 0.70-1.30 [facility] Work Phone: Comment on above: The validity of the calculated GFR & GFRAA in patients over 70 years has not been determined. Clinical correlation is essential. Serum or plasma urea nitroge n measurement (mass/volume)on 05-10-2022 Urea nitrogen [Mass/Vol] 12 mg/dL 7-18 [facility] Work Phone: Thin prep Papanicolaou smear with manual screeningon 05-10-2022 Thin prep Papanicolaou smear with manual screening 14 U/L 15-37 [facility] Work Phone: Thin prep Papanicolaou smear with manual screening 7 5-15 [facility] Work Phone: No Panel Informationon 05-01 Prostate Specific Antigen Screen 1.19 ng/mL 0.00-4.00 [facility] Work Phone: Comment on above: This test was perfor med using the TPSA assay method [facility]. Values obtained with differentassay methods cannot be used interchangably.When changing PSA assays in the course of monitoring apatient, additional sequential testing should be carriedout to confirm baseline values. Absolute lymphocyte counton 04-16-2022 Lymphocytes Auto (Unsp spec) [#/Vol] 1.18 10*3/uL 0.83-4.51 [facility] Work Phone: Basophil percentageon 2021 Basophils/100 WBC (Bld) 0.7 % 0-1 [facility] Work Phone: Chloride [Moles/Vol] 103 mmol/L 98-107 [facility] Work Phone: Eosinophils/100 WBC (Bld) 1.6 % 0-5 [facility] Work Phone: Glucose [Mass/Vol] 102 mg/dL 74-106 [facility] Work Phone: Comment on above: Fasting Glucose resu lt from 100 to 125 mg/dL suggests IMPAIRED HOMEOSTASIS per A.D.A. criteria. Neutrophils (Bld) [#/Vol] 5.0 10*3/uL 2.0-7.7 [facility] Work Phone: Neutrophils/100 WBC (Bld) 72.3 % 47-70 [facility] Work Phone: Potassium [Moles/Vol] 3.8 mmol/L 3.5-5.1 [facility] Work Phone: Sodium [Moles/Vol] 136 mmol/L 136-145 [facility] Work Phone: WBC (Bld) [#/Vol] 6.9 10*3/uL 4.4-11.0 [facility] Work Phone: Blood erythrocytes count (nu mber/volume)on 04-16-2022 RBC (Bld) [#/Vol] 4.48 10*6/uL 4.6-6.2 [facility] Work Phone: Blood hemoglobin measurement (mass/volume)on 04-16-2022 Hemoglobin (Bld) [Mass/Vol] 13.1 g/dL 13.0-16.5 [facility] Work Phone: Blood lymphocytes/100 leukoc yteson 04-16-2022 Lymphocytes/100 WBC (Bld) 17.1 % 19-41 [facility] Work Phone: Blood monocytes/100 leukocyt eson 04-16-2022 Monocytes/100 WBC (Bld) 8.0 % 0-10 [facility] Work Phone: Blood platelet mean volumeon 04-16-2022 Platelet mean volume (Bld) [Entitic vol] 11.0 fL 6.2-12.0 [facility] Work Phone: Determination of erythrocyte mean corpuscular volume (MCV)on 04-16-2022 MCV (RBC) [Entitic vol] 93.3 fL 80-94 [facility] Work Phone: Hematocrit Auto (Bld) [Volum e fraction]on 04-16-2022 Hematocrit (Bld) [Volume fraction] 41.8 % 40-54 [facility] Work Phone: Laboratory - Chemistry and C hemistry - challengeon 04-16-2022 CO2 [Moles/Vol] 26.0 mmol/L 21.0-32.0 [facility] Work Phone: Urea nitrogen/Creatinine [Mass ratio] 15.8 mg/mg 10-20 [facility] Work Phone: Laboratory - Hematology and Cell countson 04-16-2022 Erythrocyte distribution width (RBC) [Entitic vol] 47.0 fL 35.1-43.9 [facility] Work Phone: [phone] Erythrocyte distribution width (RBC) [Ratio] 13.8 % 11.6-14.6 [facility] Work Phone: [phone] Immature granulocytes/100 WBC (Bld) 0.300 % 0.0-0.9 [facility] Work Phone: Comment on above: IG% - Immature Granu locytes (promyelocytes, myelocytes and metamyelocytes) > 1% indicates that a LEFT SHIFT is Present. MCH (RBC) [Entitic mass] 29.2 pg 27.0-32.0 [facility] Work Phone: [phone] Nucleated RBC/100 WBC (Bld) [Ratio] 0 % 0-5 [facility] Work Phone: MCHC Auto (RBC) [Mass/Vol]on 04-16-2022 MCHC (RBC) [Mass/Vol] 31.3 g/dL 32-36 [facility]: No Panel Informationon 04-16 Estimated GFR (MDRD) Amer 67 mL/min >60 [facility] Work Phone: Comment on above: GFR Calc Estimated GFR (MDRD) Non-Af Amer 56 mL/min >60 [facility] Work Phone: Comment on above: Non- GFR Calc Platelets bldon 04-16-2022 Platelets (Bld) [#/Vol] 157 10*3/uL 150-450 [facility] Work Phone: Serum or plasma calcium falguni urement (mass/volume)on 04-16-2022 Calcium [Mass/Vol] 9.3 mg/dL 8.5-10.1 [facility] Work Phone: Serum or plasma creatinine m easurement (mass/volume)on 04-16-2022 Creatinine [Mass/Vol] 1.33 mg/dL 0.70-1.30 [facility] Work Phone: Comment on above: The validity of the calculated GFR & GFRAA in patients over 70 years has not been determined. Clinical correlation is essential. Serum or plasma urea nitroge n measurement (mass/volume)on 04-16-2022 Urea nitrogen [Mass/Vol] 21 mg/dL 7-18 [facility] Work Phone: Thin prep Papanicolaou smear with manual screeningon 04-16-2022 Thin prep Papanicolaou smear with manual screening 7 5-15 [facility] Work Phone: Absolute lymphocyte counton 02-18-2022 Lymphocytes Auto (Unsp spec) [#/Vol] 0.98 10*3/uL 0.83-4.51 [facility] Work Phone: Basophil percentageon 2021 Basophils/100 WBC (Bld) 1.0 % 0-1 [facility] Work Phone: [phone] Chloride [Moles/Vol] 106 mmol/L 98-107 [facility] Work Phone: [phone] Eosinophils/100 WBC (Bld) 5.5 % 0-5 [facility] Work Phone: Glucose [Mass/Vol] 96 mg/dL 74-106 [facility] Work Phone: Neutrophils (Bld) [#/Vol] 3.2 10*3/uL 2.0-7.7 [facility] Work Phone: Neutrophils/100 WBC (Bld) 63.9 % 47-70 [facility] Work Phone: Potassium [Moles/Vol] 3.5 mmol/L 3.5-5.1 [facility] Work Phone: Sodium [Moles/Vol] 136 mmol/L 136-145 [facility] Work Phone: WBC (Bld) [#/Vol] 5.1 10*3/uL 4.4-11.0 [facility] Work Phone: Blood erythrocytes count (nu mber/volume)on 02-18-2022 RBC (Bld) [#/Vol] 3.80 10*6/uL 4.6-6.2 [facility] Work Phone: Blood hemoglobin measurement (mass/volume)on 02-18-2022 Hemoglobin (Bld) [Mass/Vol] 11.5 g/dL 13.0-16.5 [facility] Work Phone: Blood lymphocytes/100 leukoc yteson 02-18-2022 Lymphocytes/100 WBC (Bld) 19.3 % 19-41 [facility] Work Phone: Blood monocytes/100 leukocyt eson 02-18-2022 Monocytes/100 WBC (Bld) 9.9 % 0-10 [facility] Work Phone: Blood platelet mean volumeon 02-18-2022 Platelet mean volume (Bld) [Entitic vol] 10.0 fL 6.2-12.0 [facility] Work Phone: Determination of erythrocyte mean corpuscular volume (MCV)on 02-18-2022 MCV (RBC) [Entitic vol] 91.8 fL 80-94 [facility] Work Phone: Hematocrit Auto (Bld) [Volum e fraction]on 02-18-2022 Hematocrit (Bld) [Volume fraction] 34.9 % 40-54 [facility] Work Phone: Laboratory - Chemistry and C hemistry - challengeon 02-18-2022 CO2 [Moles/Vol] 27.0 mmol/L 21.0-32.0 [facility] Work Phone: Urea nitrogen/Creatinine [Mass ratio] 18.0 mg/mg 10-20 [facility] Work Phone: Laboratory - Hematology and Cell countson 02-18-2022 Erythrocyte distribution width (RBC) [Entitic vol] 43.2 fL 35.1-43.9 [facility] Work Phone: Erythrocyte distribution width (RBC) [Ratio] 12.8 % 11.6-14.6 [facility] Work Phone: Immature granulocytes/100 WBC (Bld) 0.400 % 0.0-0.9 [facility] Work Phone: Comment on above: IG% - Immature Granu locytes (promyelocytes, myelocytes and metamyelocytes) > 1% indicates that a LEFT SHIFT is Present. MCH (RBC) [Entitic mass] 30.3 pg 27.0-32.0 [facility] Work Phone: Nucleated RBC/100 WBC (Bld) [Ratio] 0 % 0-5 [facility] Work Phone: MCHC Auto (RBC) [Mass/Vol]on 02-18-2022 MCHC (RBC) [Mass/Vol] 33.0 g/dL 32-36 [facility] Work Phone: No Panel Informationon 02-18 Estimated Creatinine Clearance Calc 57.57 ml/min [facility] Work Phone: Estimated GFR (MDRD) Amer 83 mL/min >60 [facility] Work Phone: Comment on above: GFR Calc Estimated GFR (MDRD) Non-Af Amer 68 mL/min >60 [facility] Work Phone: Comment on above: Non- GFR Calc Platelets bldon 02-18-2022 Platelets (Bld) [#/Vol] 151 10*3/uL 150-450 [facility] Work Phone: Serum or plasma calcium falguni urement (mass/volume)on 02-18-2022 Calcium [Mass/Vol] 9.0 mg/dL 8.5-10.1 [facility] Work Phone: Serum or plasma creatinine m easurement (mass/volume)on 02-18-2022 Creatinine [Mass/Vol] 1.11 mg/dL 0.70-1.30 [facility] Work Phone: Comment on above: The validity of the calculated GFR & GFRAA in patients over 70 years has not been determined. Clinical correlation is essential. Serum or plasma urea nitroge n measurement (mass/volume)on 02-18-2022 Urea nitrogen [Mass/Vol] 20 mg/dL 7-18 [facility] Work Phone: Thin prep Papanicolaou smear with manual screeningon 02-18-2022 Thin prep Papanicolaou smear with manual screening 3 5-15 [facility] Work Phone: Blood manual differential co mment interpretation (narrative result)on 02-11-2022 Manual differential comment Db (Bld) [Interp] SCANNED [facility] Work Phone: Blood platelet adequacy dete ction by light microscopyon 02-11-2022 Platelets LM Ql (Bld) SLT DEC ADEQ [facility] Work Phone: Basophil percentageon 2021 WBC (Bld) [#/Vol] 9.2 10*3/uL 4.4-11.0 [facility] Work Phone: Blood erythrocytes count (nu mber/volume)on 02-10-2022 RBC (Bld) [#/Vol] 3.83 10*6/uL 4.6-6.2 [facility] Work Phone: Blood hemoglobin measurement (mass/volume)on 02-10-2022 Hemoglobin (Bld) [Mass/Vol] 11.8 g/dL 13.0-16.5 [facility] Work Phone: Blood platelet mean volumeon 02-10-2022 Platelet mean volume (Bld) [Entitic vol] 11.0 fL 6.2-12.0 [facility] Work Phone: [phone] Determination of erythrocyte mean corpuscular volume (MCV)on 02-10-2022 MCV (RBC) [Entitic vol] 93.5 fL 80-94 [facility] Work Phone: Hematocrit Auto (Bld) [Volum e fraction]on 02-10-2022 Hematocrit (Bld) [Volume fraction] 35.8 % 40-54 [facility] Work Phone: [phone] Laboratory - Hematology and Cell countson 02-10-2022 Erythrocyte distribution width (RBC) [Entitic vol] 45.0 fL 35.1-43.9 [facility] Work Phone: [phone] Erythrocyte distribution width (RBC) [Ratio] 13.2 % 11.6-14.6 [facility] Work Phone: [phone] MCH (RBC) [Entitic mass] 30.8 pg 27.0-32.0 [facility] Work Phone: MCHC Auto (RBC) [Mass/Vol]on 02-10-2022 MCHC (RBC) [Mass/Vol] 33.0 g/dL 32-36 [facility] Work Phone: Platelets bldon 02-10-2022 Platelets (Bld) [#/Vol] 121 10*3/uL 150-450 [facility] Work Phone: [phone] Basophil percentageon 2021 Chloride [Moles/Vol] 104 mmol/L 98-[address] [facility] [address] [facility] Work Phone: [phone] Glucose [Mass/Vol] 128 mg/dL 74-106 [facility] Work Phone: Comment on above: Fasting Glucose resu lt greater than or equal to 126 mg/dL suggests DIABETES MELLITUS per A.D.A. criteria. Potassium [Moles/Vol] 4.1 mmol/L 3.5-5.1 [facility] Work Phone: Sodium [Moles/Vol] 135 mmol/L 136-145 [facility] Work Phone: Laboratory - Chemistry and C hemistry - challengeon 02-09-2022 CO2 [Moles/Vol] 27.0 mmol/L 21.0-32.0 [facility] Work Phone: Urea nitrogen/Creatinine [Mass ratio] 15.2 mg/mg 10-20 [facility] Work Phone: No Panel Informationon 02-09 Estimated Creatinine Clearance Calc 66.17 ml/min [facility] Work Phone: Estimated GFR (MDRD) Amer 94 mL/min >60 [facility] Work Phone: Comment on above: GFR Calc Estimated GFR (MDRD) Non-Af Amer 78 mL/min >60 [facility] Work Phone: Comment on above: Non- GFR Calc Serum or plasma calcium falguni urement (mass/volume)on 02-09-2022 Calcium [Mass/Vol] 8.5 mg/dL 8.5-10.1 [facility] Work Phone: Serum or plasma creatinine m easurement (mass/volume)on 02-09-2022 Creatinine [Mass/Vol] 0.99 mg/dL 0.70-1.30 [facility] Work Phone: Comment on above: The validity of the calculated GFR & GFRAA in patients over 70 years has not been determined. Clinical correlation is essential. Serum or plasma urea nitroge n measurement (mass/volume)on 02-09-2022 Urea nitrogen [Mass/Vol] 15 mg/dL -18 [facility] Work Phone: Thin prep Papanicolaou smear with manual screeningon 02-09-2022 Thin prep Papanicolaou smear with manual screening 4 5-15 [facility] Work Phone: INR in Blood by Coagulation assayon 02-08-2022 INR Coag (Bld) [Relative time] 1.2 {INR} [facility] Work Phone: Laboratory - Coagulationon 0 02-08-2022 PT Coag (PPP) [Time] 14.4 s 11.7-14.9 [facility] Work Phone: Whole blood prothrombin time on 02-08-2022 PT Coag (Bld) [Time] 20.9 s 11.7-14.9 [facility] Work Phone: Absolute lymphocyte counton 01-26-2022 Lymphocytes Auto (Unsp spec) [#/Vol] 0.99 10*3/uL 0.83-4.51 [facility] Work Phone: Basophil percentageon 2021 Basophils/100 WBC (Bld) 1.4 % 0-1 [facility] Work Phone: Bilirubin [Mass/Vol] 0.60 mg/dL 0.20-1.00 [facility] Work Phone: Comment on above: For patients on eltr ombopag therapy, use of Dimension [place] TBIL is not recommended. Eosinophils/100 WBC (Bld) 0.7 % 0-5 [facility] Work Phone: Neutrophils (Bld) [#/Vol] 4.2 10*3/uL 2.0-7.7 [facility] Work Phone: Neutrophils/100 WBC (Bld) 73.6 % 47-70 [facility] Work Phone: Protein [Mass/Vol] 7.5 g/dL 6.4-8.2 [facility] Work Phone: Blood lymphocytes/100 leukoc yteson 01-26-2022 Lymphocytes/100 WBC (Bld) 17.3 % 19-41 [facility] Work Phone: Blood monocytes/100 leukocyt eson 01-26-2022 Monocytes/100 WBC (Bld) 6.8 % 0-10 [facility] Work Phone: Direct bilirubinon Bilirubin.direct [Mass/Vol] 0.22 mg/dL 0.00-0.30 [facility] Work Phone: Laboratory - Chemistry and C hemistry - challengeon 01-26-2022 ALP [Catalytic activity/Vol] 83 U/L 45-117 [facility] Work Phone: ALT [Catalytic activity/Vol] 18 U/L 16-61 [facility] Work Phone: Globulin (S) [Mass/Vol] 4.1 g/dL 2.2-4.2 [facility] Work Phone: Magnesium [Mass/Vol] 2.3 mg/dL 1.6-2.6 [facility] Work Phone: Laboratory - Coagulationon 0 01-26-2022 aPTT Coag (Bld) [Time] 42.6 s 24.1-36.2 [facility] Work Phone: Laboratory - Hematology and Cell countson 01-26-2022 Immature granulocytes/100 WBC (Bld) 0.200 % 0.0-0.9 [facility] Work Phone: Comment on above: IG% - Immature Granu locytes (promyelocytes, myelocytes and metamyelocytes) > 1% indicates that a LEFT SHIFT is Present. Nucleated RBC/100 WBC (Bld) [Ratio] 0 % 0-5 [facility] Work Phone: No Panel Informationon 01-26 Nasal Screen MRSA/MSSA [facility] Work Phone: Serum or plasma albumin falguni urement (mass/volume)on 01-26-2022 Albumin [Mass/Vol] 3.4 g/dL 3.2-5.0 [facility] Work Phone: Thin prep Papanicolaou smear with manual screeningon 01-26-2022 Thin prep Papanicolaou smear with manual screening 18 U/L 15-37 [facility] Work Phone: Absolute lymphocyte counton 01-15-2022 Lymphocytes Auto (Unsp spec) [#/Vol] 0.99 10*3/uL 0.83-4.51 [facility] Work Phone: Activated partial thrombopla stin time (aPTT) in platelet poor plasma by coagulation aon 01-15-2022 aPTT Coag (PPP) [Time] 31.4 s 24.1-36.2 [facility] Work Phone: Basophil percentageon 2021 Basophils/100 WBC (Bld) 0.9 % 0-1 [facility] Work Phone: Eosinophils/100 WBC (Bld) 1.1 % 0-5 [facility] Work Phone: Neutrophils (Bld) [#/Vol] 4.7 10*3/uL 2.0-7.7 [facility] Work Phone: Neutrophils/100 WBC (Bld) 73.0 % 47-70 [facility] Work Phone: WBC (Bld) [#/Vol] 6.4 10*3/uL 4.4-11.0 [facility] Work Phone: Blood erythrocytes count (nu mber/volume)on 01-15-2022 RBC (Bld) [#/Vol] 4.18 10*6/uL 4.6-6.2 [facility] Work Phone: Blood hemoglobin measurement (mass/volume)on 01-15-2022 Hemoglobin (Bld) [Mass/Vol] 13.2 g/dL 13.0-16.5 [facility] Work Phone: Blood lymphocytes/100 leukoc yteson 01-15-2022 Lymphocytes/100 WBC (Bld) 15.4 % 19-41 [facility] Work Phone: Blood monocytes/100 leukocyt eson 01-15-2022 Monocytes/100 WBC (Bld) 9.3 % 0-10 [facility] Work Phone: [phone] Blood platelet mean volumeon 01-15-2022 Platelet mean volume (Bld) [Entitic vol] 10.3 fL 6.2-12.0 [facility] Work Phone: [phone] Determination of erythrocyte mean corpuscular volume (MCV)on 01-15-2022 MCV (RBC) [Entitic vol] 93.8 fL 80-94 [facility] Work Phone: [phone] Hematocrit Auto (Bld) [Volum e fraction]on 01-15-2022 Hematocrit (Bld) [Volume fraction] 39.2 % 40-54 [facility] Work Phone: [phone] INR in Blood by Coagulation assayon 01-15-2022 INR Coag (Bld) [Relative time] 1.1 {INR} [facility] Work Phone: [phone] Laboratory - Coagulationon 0 01-15-2022 PT Coag (PPP) [Time] 13.9 s 11.7-14.9 [facility] Work Phone: [phone] Laboratory - Hematology and Cell countson 01-15-2022 Erythrocyte distribution width (RBC) [Entitic vol] 46.3 fL 35.1-43.9 [facility] Work Phone: [phone] Erythrocyte distribution width (RBC) [Ratio] 13.5 % 11.6-14.6 [facility] Work Phone: [phone] Immature granulocytes/100 WBC (Bld) 0.300 % 0.0-0.9 [facility] Work Phone: [phone] Comment on above: IG% - Immature Granu locytes (promyelocytes, myelocytes and metamyelocytes) > 1% indicates that a LEFT SHIFT is Present. MCH (RBC) [Entitic mass] 31.6 pg 27.0-32.0 [facility] Work Phone: [phone] Nucleated RBC/100 WBC (Bld) [Ratio] 0 % 0-5 [facility] Work Phone: [phone] MCHC Auto (RBC) [Mass/Vol]on 01-15-2022 MCHC (RBC) [Mass/Vol] 33.7 g/dL 32-36 [facility] Work Phone: Platelets bldon 01-15-2022 Platelets (Bld) [#/Vol] 141 10*3/uL 150-450 [facility] Work Phone: Absolute lymphocyte counton 12-21-2021 Lymphocytes Auto (Unsp spec) [#/Vol] 1.00 10*3/uL 0.83-4.51 [facility] Work Phone: Basophil percentageon 2021 Basophils/100 WBC (Bld) 1.0 % 0-1 [facility] Work Phone: Chloride [Moles/Vol] 105 mmol/L 98-107 [facility] Work Phone: Eosinophils/100 WBC (Bld) 2.3 % 0-5 [facility] Work Phone: Glucose [Mass/Vol] 96 mg/dL 74-106 [facility] Work Phone: Neutrophils (Bld) [#/Vol] 3.2 10*3/uL 2.0-7.7 [facility] Work Phone: Neutrophils/100 WBC (Bld) 66.2 % 47-70 [facility] Work Phone: Potassium [Moles/Vol] 4.0 mmol/L 3.5-5.1 [facility] Work Phone: Sodium [Moles/Vol] 138 mmol/L 136-145 [facility] Work Phone: WBC (Bld) [#/Vol] 4.8 10*3/uL 4.4-11.0 [facility] Work Phone: Blood erythrocytes count (nu mber/volume)on 12-21-2021 RBC (Bld) [#/Vol] 4.55 10*6/uL 4.6-6.2 [facility] Work Phone: Blood hemoglobin measurement (mass/volume)on 12-21-2021 Hemoglobin (Bld) [Mass/Vol] 13.9 g/dL 13.0-16.5 [facility] Work Phone: Blood lymphocytes/100 leukoc yteson 12-21-2021 Lymphocytes/100 WBC (Bld) 20.9 % 19-41 [facility] Work Phone: Blood monocytes/100 leukocyt eson 12-21-2021 Monocytes/100 WBC (Bld) 9.4 % 0-10 [facility] Work Phone: [phone] Blood platelet mean volumeon 12-21-2021 Platelet mean volume (Bld) [Entitic vol] 10.0 fL 6.2-12.0 [facility] Work Phone: [phone] Determination of erythrocyte mean corpuscular volume (MCV)on 12-21-2021 MCV (RBC) [Entitic vol] 94.1 fL 80-94 [facility] Work Phone: [phone] Hematocrit Auto (Bld) [Volum e fraction]on 12-21-2021 Hematocrit (Bld) [Volume fraction] 42.8 % 40-54 [facility] Work Phone: [phone] INR in Blood by Coagulation assayon 12-21-2021 INR Coag (Bld) [Relative time] 1.5 {INR} [facility] Work Phone: [phone] Laboratory - Chemistry and C hemistry - challengeon 12-21-2021 CO2 [Moles/Vol] 27.0 mmol/L 21.0-32.0 [facility] Work Phone: [phone] Urea nitrogen/Creatinine [Mass ratio] 10.7 mg/mg 10-20 [facility] Work Phone: [phone] Laboratory - Coagulationon 0 12-21-2021 PT Coag (PPP) [Time] 17.8 s 11.7-14.9 [facility] Work Phone: [phone] Laboratory - Hematology and Cell countson 12-21-2021 Erythrocyte distribution width (RBC) [Entitic vol] 48.0 fL 35.1-43.9 [facility] Work Phone: Erythrocyte distribution width (RBC) [Ratio] 13.9 % 11.6-14.6 [facility] Work Phone: Immature granulocytes/100 WBC (Bld) 0.200 % 0.0-0.9 [facility] Work Phone: Comment on above: IG% - Immature Granu locytes (promyelocytes, myelocytes and metamyelocytes) > 1% indicates that a LEFT SHIFT is Present. MCH (RBC) [Entitic mass] 30.5 pg 27.0-32.0 [facility] Work Phone: Nucleated RBC/100 WBC (Bld) [Ratio] 0 % 0-5 [facility] Work Phone: MCHC Auto (RBC) [Mass/Vol]on 12-21-2021 MCHC (RBC) [Mass/Vol] 32.5 g/dL 32-36 [facility] Work Phone: No Panel Informationon 12-21 Estimated GFR (MDRD) Amer 75 mL/min >60 [facility] Work Phone: Comment on above: GFR Calc Estimated GFR (MDRD) Non-Af Amer 62 mL/min >60 [facility] Work Phone: Comment on above: Non- GFR Calc Platelets bldon 12-21-2021 Platelets (Bld) [#/Vol] 131 10*3/uL 150-450 [facility] Work Phone: Serum or plasma calcium falguni urement (mass/volume)on 12-21-2021 Calcium [Mass/Vol] 8.9 mg/dL 8.5-10.1 [facility] Work Phone: Serum or plasma creatinine m easurement (mass/volume)on 12-21-2021 Creatinine [Mass/Vol] 1.21 mg/dL 0.70-1.30 [facility] Work Phone: Comment on above: The validity of the calculated GFR & GFRAA in patients over 70 years has not been determined. Clinical correlation is essential. Serum or plasma urea nitroge n measurement (mass/volume)on 12-21-2021 Urea nitrogen [Mass/Vol] 13 mg/dL 7-18 [facility] Work Phone: Thin prep Papanicolaou smear with manual screeningon 12-21-2021 Thin prep Papanicolaou smear with manual screening 6 5-15 [facility] Work Phone: [phone] Absolute lymphocyte counton 11-09-2021 Lymphocytes Auto (Unsp spec) [#/Vol] 1.29 10*3/uL 0.83-4.51 [facility] Work Phone: [phone] Basophil percentageon 2020 Bilirubin [Mass/Vol] 0.60 mg/dL 0.20-1.00 [facility] Work Phone: Comment on above: For patients on eltr ombopag therapy, use of Dimension [place] TBIL is not recommended. Chloride [Moles/Vol] 106 mmol/L 98-107 [facility] Work Phone: [phone] Eosinophils/100 WBC (Bld) 1.1 % 0-5 [facility] Work Phone: [phone] Glucose [Mass/Vol] 88 mg/dL 74-106 [facility] Work Phone: Comment on above: Please note revised GLUCOSE reference range effective 2017. Neutrophils (Bld) [#/Vol] 3.5 10*3/uL 2.0-7.7 [facility] Work Phone: [phone] Potassium [Moles/Vol] 3.9 mmol/L 3.5-5.1 [facility] Work Phone: [phone] Protein [Mass/Vol] 7.4 g/dL 6.4-8.2 [facility] Work Phone: [phone] Sodium [Moles/Vol] 139 mmol/L 136-145 [facility] Work Phone: [phone] WBC (Bld) [#/Vol] 5.5 10*3/uL 4.4-11.0 [facility] Work Phone: Blood erythrocytes count (nu mber/volume)on 11-09-2021 RBC (Bld) [#/Vol] 4.39 10*6/uL 4.6-6.2 [facility] Work Phone: Blood hemoglobin measurement (mass/volume)on 11-09-2021 Hemoglobin (Bld) [Mass/Vol] 13.8 g/dL 13.0-16.5 [facility] Work Phone: Blood lymphocytes/100 leukoc yteson 11-09-2021 Lymphocytes/100 WBC (Bld) 23.6 % 19-41 [facility] Work Phone: Blood monocytes/100 leukocyt eson 11-09-2021 Monocytes/100 WBC (Bld) 10.1 % 0-10 [facility] Work Phone: Blood platelet mean volumeon 11-09-2021 Platelet mean volume (Bld) [Entitic vol] 10.8 fL 6.2-12.0 [facility] Work Phone: [phone] Determination of erythrocyte mean corpuscular volume (MCV)on 11-09-2021 MCV (RBC) [Entitic vol] 94.1 fL 80-94 [facility] Work Phone: Hematocrit Auto (Bld) [Volum e fraction]on 11-09-2021 Hematocrit (Bld) [Volume fraction] 41.3 % 40-54 [facility] Work Phone: [phone] Laboratory - Chemistry and C hemistry - challengeon 11-09-2021 ALP [Catalytic activity/Vol] 97 U/L 45-117 [facility] Work Phone: ALT [Catalytic activity/Vol] 21 U/L 16-61 [facility] Work Phone: CO2 [Moles/Vol] 30.0 mmol/L 21.0-32.0 [facility] Work Phone: [phone] Globulin (S) [Mass/Vol] 4.0 g/dL 2.2-4.2 [facility] Work Phone: [phone] Urea nitrogen/Creatinine [Mass ratio] 17.4 mg/mg 10-20 [facility] Work Phone: Laboratory - Hematology and Cell countson 11-09-2021 Basophils/100 WBC (Unsp spec) 0.9 % 0-1 [facility] Work Phone: Erythrocyte distribution width (RBC) [Entitic vol] 48.5 fL 35.1-43.9 [facility] Work Phone: Erythrocyte distribution width (RBC) [Ratio] 13.9 % 11.6-14.6 [facility] Work Phone: [phone] Immature granulocytes/100 WBC (Bld) 0.500 % 0.0-0.9 [facility] Work Phone: Comment on above: IG% - Immature Granu locytes (promyelocytes, myelocytes and metamyelocytes) > 1% indicates that a LEFT SHIFT is Present. MCH (RBC) [Entitic mass] 31.4 pg 27.0-32.0 [facility] Work Phone: [phone] Neutrophils/100 WBC (Bld) 63.8 % 47-70 [facility] Work Phone: [phone] Nucleated RBC/100 WBC (Bld) [Ratio] 0 % 0-5 [facility] Work Phone: MCHC Auto (RBC) [Mass/Vol]on 11-09-2021 MCHC (RBC) [Mass/Vol] 33.4 g/dL 32-36 [facility] Work Phone: No Panel Informationon 11-09 Estimated GFR (MDRD) Amer 85 mL/min >60 [facility] Work Phone: Comment on above: GFR Calc Estimated GFR (MDRD) Non-Af Amer 70 mL/min >60 [facility] Work Phone: Comment on above: Non- GFR Calc Thyroid Stimulating Hormone (TSH) 0.98 uIU/mL 0.358-3.74 [facility] Work Phone: Vitamin D 25-Hydroxy 16.1 ng/mL [facility] Work Phone: Comment on above: Vitamin D 25(OH) Sta tus Range Deficiency <20 ng/mL (50nmol/L) Insufficiency 20 - 30 ng/mL (50 - 75 nmol/L) Sufficiency 30 - 100 ng/mL (75 - 250 nmol/L) Toxicity >100 ng/mL (>250 nmol/L) Platelets bldon 11-09-2021 Platelets (Bld) [#/Vol] 130 10*3/uL 150-450 [facility] Work Phone: Serum or plasma albumin falguni urement (mass/volume)on 11-09-2021 Albumin [Mass/Vol] 3.4 g/dL 3.2-5.0 [facility] Work Phone: Serum or plasma albumin/glob ulin mass ratioon 11-09-2021 Albumin/Globulin [Mass ratio] 0.8 {ratio} 0.9-2.4 [facility] Work Phone: Serum or plasma calcium falguni urement (mass/volume)on 11-09-2021 Calcium [Mass/Vol] 9.0 mg/dL 8.5-10.1 [facility] Work Phone: Serum or plasma creatinine m easurement (mass/volume)on 11-09-2021 Creatinine [Mass/Vol] 1.09 mg/dL 0.70-1.30 [facility] Work Phone: Comment on above: The validity of the calculated GFR & GFRAA in patients over 70 years has not been determined. Clinical correlation is essential. Serum or plasma urea nitroge n measurement (mass/volume)on 11-09-2021 Urea nitrogen [Mass/Vol] 19 mg/dL 7-18 [facility] Work Phone: Thin prep Papanicolaou smear with manual screeningon 11-09-2021 Thin prep Papanicolaou smear with manual screening 13 U/L 15-37 [facility] Work Phone: Thin prep Papanicolaou smear with manual screening 3 5-15 [facility] Work Phone: Basophil percentageon 2020 Bilirubin [Mass/Vol] 0.50 mg/dL 0.20-1.00 [facility] Work Phone: Comment on above: For patients on eltr ombopag therapy, use of Dimension [place] TBIL is not recommended. Cholesterol [Mass/Vol] 168 mg/dL <200 [facility] Work Phone: Comment on above: <200 mg/dL Desirable 200-240 mg/dL Borderline >240 mg/dL High Risk Protein [Mass/Vol] 7.4 g/dL 6.4-8.2 [facility] Work Phone: Triglyceride [Mass/Vol] 69 mg/dL [facility] Work Phone: Comment on above: The drugs N-Acetylcy steine and Metamizole may falsely depress this assay.Serum Triglycerides Reference Interval Normal <150 mg/dL Borderline high 150 - 199 mg/dL High 200 - 499 mg/dL Very High > or = 500 mg/dL Direct bilirubinon Bilirubin.direct [Mass/Vol] 0.19 mg/dL 0.00-0.30 [facility] Work Phone: Laboratory - Chemistry and C hemistry - challengeon 10-26-2021 ALP [Catalytic activity/Vol] 104 U/L 45-117 [facility] Work Phone: ALT [Catalytic activity/Vol] 24 U/L 16-61 [facility] Work Phone: Globulin (S) [Mass/Vol] 3.9 g/dL 2.2-4.2 [facility] Work Phone: Serum or plasma albumin falguni urement (mass/volume)on 10-26-2021 Albumin [Mass/Vol] 3.5 g/dL 3.2-5.0 [facility] Work Phone: Serum or plasma cholesterol in HDL measurement (mass/volume)on 10-26-2021 Cholesterol in HDL [Mass/Vol] 70 mg/dL [facility] Work Phone: Comment on above: The drugs N-Acetylcy steine and Metamizole may falsely depress this assay. Reference Range HDL <40 mg/dL Low HDL Cholesterol HDL >or= 60 mg/dL High HDL Cholesterol Serum or plasma cholesterol in VLDL measurement (mass/volume)on 10-26-2021 Cholesterol in VLDL [Mass/Vol] 14 mg/dL 5-40 [facility] Work Phone: Serum or plasma low density lipoprotein (LDL) cholesterol measurement (mass/volume)on 10-26-2021 Cholesterol in LDL [Mass/Vol] 84 mg/dL 0-130 [facility] Work Phone: Thin prep Papanicolaou smear with manual screeningon 10-26-2021 Thin prep Papanicolaou smear with manual screening 16 U/L 15-37 [facility] Work Phone: Basic Panelon 10-02-2019 Creatinine [Mass/Vol] 1.00 mg/dL Normal 0.67-1.17 [facility] Comment on above: Performed By: #### G FR #### [facility] [address] [place], [place] [address] Anion gap [Moles/Vol] 10 mmol/L Normal 8-16 [facility] Comment on above: Performed By: #### G FR #### [facility] [address] [place], [place] [address] Calcium [Mass/Vol] 8.3 mg/dL Low 8.5-10.1 [facility] Comment on above: Performed By: #### G FR #### [facility] [address] [place], [place] [address] CO2 [Moles/Vol] 28 mmol/L Normal 21-32 [facility] Comment on above: Performed By: #### G FR #### [facility] [address] [place], [place] [address] Glucose [Mass/Vol] 109 mg/dL High 70-99 [facility] Comment on above: Performed By: #### G FR #### [facility] [address] [place], [place] [address] Urea nitrogen [Mass/Vol] 20 mg/dL High 7-18 [facility] Comment on above: Performed By: #### G FR #### [facility] [address] [place] [address] Chloride [Moles/Vol] 107 mmol/L Normal 98-107 [facility] Comment on above: Performed By: #### G FR #### [facility] [address] [place] [address] Potassium [Moles/Vol] 3.8 mmol/L Normal 3.5-5.1 [facility] Comment on above: Performed By: #### G FR #### [facility] [address] [place] [address] Sodium [Moles/Vol] 141 mmol/L Normal 136-145 [facility] Comment on above: Performed By: #### G FR #### [facility] [address] [place] [address] Hemogramon 10-02-2019 Erythrocyte distribution width (RBC) [Ratio] 13.3 % Normal 11.6-14.4 [facility] Comment on above: Performed By: #### P 14 #### [facility] [address] [place] [address] Hematocrit (Bld) [Volume fraction] 36.6 % Low 40.1-51.0 [facility] Comment on above: Performed By: #### P 14 #### [facility] [address] [place] [address] Hemoglobin (Bld) [Mass/Vol] 12.1 g/dL Low 13.7-17.5 [facility] Comment on above: Performed By: #### P 14 #### [facility] [address] [place] [address] MCH (RBC) [Entitic mass] 30.6 pg Normal 25.7-32.2 [facility] Comment on above: Performed By: #### P 14 #### [facility] [address] [place] [address] MCHC (RBC) [Mass/Vol] 33.1 % Normal 32.3-36.5 [facility] Comment on above: Performed By: #### P 14 #### [facility] [address] [place] [address] MCV (RBC) [Entitic vol] 92.4 fL Normal 83.2-95.6 [facility] Comment on above: Performed By: #### P 14 #### [facility] [address] [place] [address] Platelet mean volume (Bld) [Entitic vol] 10.9 fL Normal 8.7-12.0 [facility] Comment on above: Performed By: #### P 14 #### [facility] [address] [place] [address] Platelets (Bld) [#/Vol] 75 thou/cmm Low 141-365 [facility] Comment on above: Performed By: #### P 14 #### [facility] [address] [place] [address] RBC (Bld) [#/Vol] 3.96 mil/cmm Low 4.63-6.08 [facility] Comment on above: Performed By: #### P 14 #### [facility] [address] [place] [address] RDW SD 45.7 fl Normal 36.1-45.8 [facility] Comment on above: Performed By: #### P 14 #### [facility] [address] [place] [address] WBC (Bld) [#/Vol] 6.44 thou/cmm Normal 4.23-9.07 [facility] Comment on above: Performed By: #### P 14 #### [facility] [address] [place] [address] MDRD GFRon 10-02-2019 GFR/1.73 sq M predicted among non-blacks MDRD (S/P/Bld) [Vol rate/Area] mL/min/{1.73_m2} Normal >60mL/min/ 1.73m2 [facility] Comment on above: Result Comment: If t he patient is , multiply the result by 1.210. Performed By: #### G FR #### [facility] [address] [place] [address] Basic Panelon 10-01-2019 Anion gap [Moles/Vol] 9 mmol/L Normal 8-16 [facility] Comment on above: Performed By: #### P 14 #### [facility] [address] [place], [place] [address] Potassium [Moles/Vol] 3.5 mmol/L Normal 3.5-5.1 [facility] Comment on above: Result Comment: SPEC IMEN SLIGHTLY HEMOLYZED Performed By: #### P 14 #### [facility] [address] [place], [place] [address] Creatinine [Mass/Vol] 0.85 mg/dL Normal 0.67-1.17 [facility] Comment on above: Performed By: #### P 14 #### [facility] [address] [place], [place] [address] CO2 [Moles/Vol] 22 mmol/L Normal 21-32 [facility] Comment on above: Performed By: #### P 14 #### [facility] [address] [place], [place] [address] Glucose [Mass/Vol] 69 mg/dL Low 70-99 [facility] Comment on above: Performed By: #### P 14 #### [facility] [address] [place], [place] [address] Urea nitrogen [Mass/Vol] 15 mg/dL Normal 7-18 [facility] Comment on above: Performed By: #### P 14 #### [facility] [address] [place], [place] [address] Calcium [Mass/Vol] 6.5 mg/dL Low 8.5-10.1 [facility] Comment on above: Performed By: #### P 14 #### [facility] [address] [place], [place] [address] Chloride [Moles/Vol] 114 mmol/L High 98-107 [facility] Comment on above: Performed By: #### P 14 #### [facility] [address] [place], [place] [address] Sodium [Moles/Vol] 141 mmol/L Normal 136-145 [facility] Comment on above: Performed By: #### P 14 #### [facility] [address] [place], [place] [address] Glucose Meteron 10-01-2019 Glucose [Mass/Vol] 129 mg/dL High 70-99 [facility] Comment on above: Result Comment: CHANA GAMBOA Performed By: #### P 14 #### [facility] [address] [place] [address] Hemogramon 10-01-2019 Erythrocyte distribution width (RBC) [Ratio] 13.3 % Normal 11.6-14.4 [facility] Comment on above: Performed By: #### P 14 #### [facility] [address] [place] [address] Hematocrit (Bld) [Volume fraction] 39.4 % Low 40.1-51.0 [facility] Comment on above: Performed By: #### P 14 #### [facility] [address] [place] [address] Hemoglobin (Bld) [Mass/Vol] 13.0 g/dL Low 13.7-17.5 [facility] Comment on above: Performed By: #### P 14 #### [facility] [address] [place] [address] MCH (RBC) [Entitic mass] 30.3 pg Normal 25.7-32.2 [facility] Comment on above: Performed By: #### P 14 #### [facility] [address] [place] [address] MCHC (RBC) [Mass/Vol] 33.0 % Normal 32.3-36.5 [facility] Comment on above: Performed By: #### P 14 #### [facility] [address] [place] [address] MCV (RBC) [Entitic vol] 91.8 fL Normal 83.2-95.6 [facility] Comment on above: Performed By: #### P 14 #### [facility] [address] [place] [address] Platelet mean volume (Bld) [Entitic vol] 10.7 fL Normal 8.7-12.0 [facility] Comment on above: Performed By: #### P 14 #### [facility] [address] [place] [address] Platelets (Bld) [#/Vol] 80 thou/cmm Low 141-365 [facility] Comment on above: Performed By: #### P 14 #### [facility] [address] [place], [place] [address] RBC (Bld) [#/Vol] 4.29 mil/cmm Low 4.63-6.08 [facility] Comment on above: Performed By: #### P 14 #### [facility] [address] [place], [place] [address] RDW SD 45.1 fl Normal 36.1-45.8 [facility] Comment on above: Performed By: #### P 14 #### [facility] [address] [place], [place] [address] WBC (Bld) [#/Vol] 7.35 thou/cmm Normal 4.23-9.07 [facility] Comment on above: Performed By: #### P 14 #### [facility] [address] [place], [place] [address] XR CHEST 2V FRONTAL/LATon XR CHEST 2V FRONTAL/LAT * * *Final Report* * * DATE OF EXAM: Oct 01 2019 7:33AM [id number] - XR CHEST 2V FRONTAL/LAT / PROCEDURE REASON: Pacing Device, asymptomatic, eval * * * * Physician Interpretation * * * * EXAMINATION: CHEST RADIOGRAPH (2 VIEW FRONTAL & LATERAL) CLINICAL HISTORY: Pacing Device, asymptomatic, eval MQ: XC2_5 Comparison: 09/30/2019 RESULT: Lines, tubes, and devices: Left-sided AICD. No significant change. Lungs and pleura: Emphysematous changes are present. No pneumonia, pleural effusion or pneumothorax. Cardiomediastinal silhouette: Normal cardiomediastinal silhouette. Other: Decreased bone density. IMPRESSION: No acute radiographic abnormality. Dry Cure Worker: PSCB Transcribe Date/Time: Oct 01 2019 7:55A Dictated by : AGUSTINA ORDAZ MD This examination was interpreted and the report reviewed and electronically signed by: AGUSTINA ORDAZ MD on Oct 01 2019 7:56AM EST Normal [facility] Basic Panelon 09-30-2019 Creatinine [Mass/Vol] 1.00 mg/dL Normal 0.67-1.17 [facility] Comment on above: Performed By: #### P 14 #### [facility] [address] [place], [place] [address] Anion gap [Moles/Vol] 7 mmol/L Low 8-16 [facility] Comment on above: Performed By: #### P 14 #### [facility] [address] [place], [place] [address] CO2 [Moles/Vol] 29 mmol/L Normal 21-32 [facility] Comment on above: Performed By: #### P 14 #### [facility] [address] [place], [place] [address] Glucose [Mass/Vol] 85 mg/dL Normal 70-99 [facility] Comment on above: Performed By: #### P 14 #### [facility] [address] [place], [place] [address] Urea nitrogen [Mass/Vol] 17 mg/dL Normal 7-18 [facility] Comment on above: Performed By: #### P 14 #### [facility] [address] [place], [place] [address] Calcium [Mass/Vol] 8.3 mg/dL Low 8.5-10.1 [facility] Comment on above: Performed By: #### P 14 #### [facility] [address] [place], [place] [address] Chloride [Moles/Vol] 107 mmol/L Normal 98-107 [facility] Comment on above: Performed By: #### P 14 #### [facility] [address] [place], [place] [address] Potassium [Moles/Vol] 3.6 mmol/L Normal 3.5-5.1 [facility] Comment on above: Performed By: #### P 14 #### [facility] [address] [place], [place] [address] Sodium [Moles/Vol] 139 mmol/L Normal 136-145 [facility] Comment on above: Performed By: #### P 14 #### [facility] [address] [place], [place] [address] Hemogramon 09-30-2019 Erythrocyte distribution width (RBC) [Ratio] 13.2 % Normal 11.6-14.4 [facility] Comment on above: Performed By: #### P 14 #### [facility] [address] [place] [address] Hematocrit (Bld) [Volume fraction] 41.2 % Normal 40.1-51.0 [facility] Comment on above: Performed By: #### P 14 #### [facility] [address] [place] [address] Hemoglobin (Bld) [Mass/Vol] 13.6 g/dL Low 13.7-17.5 [facility] Comment on above: Performed By: #### P 14 #### [facility] [address] [place] [address] MCH (RBC) [Entitic mass] 30.3 pg Normal 25.7-32.2 [facility] Comment on above: Performed By: #### P 14 #### [facility] [address] [place] [address] MCHC (RBC) [Mass/Vol] 33.0 % Normal 32.3-36.5 [facility] Comment on above: Performed By: #### P 14 #### [facility] [address] [place] [address] MCV (RBC) [Entitic vol] 91.8 fL Normal 83.2-95.6 [facility] Comment on above: Performed By: #### P 14 #### [facility] [address] [place] [address] Platelet mean volume (Bld) [Entitic vol] 10.5 fL Normal 8.7-12.0 [facility] Comment on above: Performed By: #### P 14 #### [facility] [address] [place] [id number] Platelets (Bld) [#/Vol] 102 thou/cmm Low 141-365 [facility] Comment on above: Performed By: #### P 14 #### [facility] [address] [place], [place] [address] RBC (Bld) [#/Vol] 4.49 mil/cmm Low 4.63-6.08 [facility] Comment on above: Performed By: #### P 14 #### [facility] [address] [place], [place] [address] RDW SD 44.5 fl Normal 36.1-45.8 [facility] Comment on above: Performed By: #### P 14 #### [facility] [address] [place], [place] [address] WBC (Bld) [#/Vol] 6.07 thou/cmm Normal 4.23-9.07 [facility] Comment on above: Performed By: #### P 14 #### [facility] [address] [place], [place] [address] XR CHEST 1V FRONTALon 2018 XR CHEST 1V FRONTAL * * *Final Report* * * DATE OF EXAM: Sep 30 2019 5:18PM [id number] - XR CHEST 1V FRONTAL / PROCEDURE REASON: Pneumothorax * * * * Physician Interpretation * * * * EXAMINATION: CHEST RADIOGRAPH (SINGLE VIEW AP OR PA) CLINICAL HISTORY: Pneumothorax MQ: XC1_5 Comparison: Outside chest radiograph 09/27/2019 RESULT: Lines, tubes, and devices: There is a left chest cardiac pacer Lungs and pleura: No consolidation. No pleural effusion. No obvious pneumothorax. Mild pulmonary vascular prominence. Cardiomediastinal silhouette: Mild cardiomegaly Other: . IMPRESSION: No obvious pneumothorax. cardiomegaly and pulmonary vascular congestion. Dry Cure Worker: PASQUALE Transcribe Date/Time: Sep 30 2019 5:35P Dictated by : AKIL JORGENSEN MD This examination was interpreted and the report reviewed and electronically signed by: AKIL JORGENSEN MD on Sep 30 2019 5:37PM EST Normal [facility] Basic Panelon 09-29-2019 Creatinine [Mass/Vol] 1.09 mg/dL Normal 0.67-1.17 [facility] Comment on above: Performed By: #### P 14 #### [facility] [address] [place], [place] [address] Anion gap [Moles/Vol] 9 mmol/L Normal 8-16 [facility] Comment on above: Performed By: #### P 14 #### [facility] [address] [place], [place] [address] CO2 [Moles/Vol] 26 mmol/L Normal 21-32 [facility] Comment on above: Performed By: #### P 14 #### [facility] [address] [place], [place] [address] Glucose [Mass/Vol] 95 mg/dL Normal 70-99 [facility] Comment on above: Performed By: #### P 14 #### [facility] [address] [place], [place] [address] Urea nitrogen [Mass/Vol] 16 mg/dL Normal 7-18 [facility] Comment on above: Performed By: #### P 14 #### [facility] [address] [place], [place] [address] Calcium [Mass/Vol] 8.4 mg/dL Low 8.5-10.1 [facility] Comment on above: Performed By: #### P 14 #### [facility] [address] [place], [place] [address] Chloride [Moles/Vol] 108 mmol/L High 98-107 [facility] Comment on above: Performed By: #### P 14 #### [facility] [address] [place], [place] [address] Potassium [Moles/Vol] 3.8 mmol/L Normal 3.5-5.1 [facility] Comment on above: Performed By: #### P 14 #### [facility] [address] [place], [place] [address] Sodium [Moles/Vol] 139 mmol/L Normal 136-145 [facility] Comment on above: Performed By: #### P 14 #### [facility] [address] [place], [place] [address] Hemogramon 09-29-2019 Erythrocyte distribution width (RBC) [Ratio] 13.4 % Normal 11.6-14.4 [facility] Comment on above: Performed By: #### C BC1 #### [facility] [address] [place], [place] [address] Hematocrit (Bld) [Volume fraction] 41.1 % Normal 40.1-51.0 [facility] Comment on above: Performed By: #### C BC1 #### [facility] [address] [place] [address] Hemoglobin (Bld) [Mass/Vol] 13.7 g/dL Normal 13.7-17.5 [facility] Comment on above: Performed By: #### C BC1 #### [facility] [address] [place] [address] MCH (RBC) [Entitic mass] 30.2 pg Normal 25.7-32.2 [facility] Comment on above: Performed By: #### C BC1 #### [facility] [address] [address] MCHC (RBC) [Mass/Vol] 33.3 % Normal 32.3-36.5 [facility] Comment on above: Performed By: #### C BC1 #### [place] [address] MCV (RBC) [Entitic vol] 90.5 fL Normal 83.2-95.6 [facility] Comment on above: Performed By: #### C BC1 #### [facility] [address] [address] Platelet mean volume (Bld) [Entitic vol] 10.7 fL Normal 8.7-12.0 [facility] Comment on above: Performed By: #### C BC1 #### [facility] [address] [address] Platelets (Bld) [#/Vol] 113 thou/cmm Low 141-365 [facility] Comment on above: Performed By: #### C BC1 #### [facility] [address] [address] RBC (Bld) [#/Vol] 4.54 mil/cmm Low 4.63-6.08 [facility] Comment on above: Performed By: #### C BC1 #### [facility] [address] [address] RDW SD 44.8 fl Normal 36.1-45.8 [facility] Comment on above: Performed By: #### C BC1 #### [place] [address] WBC (Bld) [#/Vol] 5.82 thou/cmm Normal 4.23-9.07 [facility] Comment on above: Performed By: #### C BC1 #### [facility] [address] [place], [place] [address] Basic Panelon 09-28-2019 Anion gap [Moles/Vol] 8 mmol/L Normal 8-16 [facility] Comment on above: Performed By: #### P 8 #### [facility] [address] [place], [place] [address] Creatinine [Mass/Vol] 1.07 mg/dL Normal 0.67-1.17 [facility] Comment on above: Performed By: #### P 8 #### [facility] [address] [place], [place] [address] Potassium [Moles/Vol] 3.9 mmol/L Normal 3.5-5.1 [facility] Comment on above: Result Comment: SPEC IMEN SLIGHTLY HEMOLYZED Performed By: #### P 8 #### [facility] [address] [place], [place] [address] Glucose [Mass/Vol] 93 mg/dL Normal 70-99 [facility] Comment on above: Performed By: #### P 8 #### [facility] [address] [place], [place] [address] Calcium [Mass/Vol] 8.6 mg/dL Normal 8.5-10.1 [facility] Comment on above: Performed By: #### P 8 #### [facility] [address] [place], [place] [address] CO2 [Moles/Vol] 28 mmol/L Normal 21-32 [facility] Comment on above: Performed By: #### P 8 #### [facility] [address] [place], [place] [address] Urea nitrogen [Mass/Vol] 15 mg/dL Normal 7-18 [facility] Comment on above: Performed By: #### P 8 #### [facility] [address] [place], [place] [address] Chloride [Moles/Vol] 107 mmol/L Normal 98-107 [facility] Comment on above: Performed By: #### P 8 #### [facility] [address] [place] [address] Sodium [Moles/Vol] 139 mmol/L Normal 136-145 [facility] Comment on above: Performed By: #### P 8 #### [facility] [address] [place] [address] Hemogramon 09-28-2019 Erythrocyte distribution width (RBC) [Ratio] 13.2 % Normal 11.6-14.4 [facility] Comment on above: Performed By: #### C BC1 #### [facility] [address] [place] [address] Hematocrit (Bld) [Volume fraction] 48.1 % Normal 40.1-51.0 [facility] Comment on above: Performed By: #### C BC1 #### [facility] [address] [place] [address] Hemoglobin (Bld) [Mass/Vol] 15.4 g/dL Normal 13.7-17.5 [facility] Comment on above: Performed By: #### C BC1 #### [facility] [address] [place] [address] MCH (RBC) [Entitic mass] 30.0 pg Normal 25.7-32.2 [facility] Comment on above: Performed By: #### C BC1 #### [place] [address] MCHC (RBC) [Mass/Vol] 32.0 % Low 32.3-36.5 [facility] Comment on above: Performed By: #### C BC1 #### [facility] [address] [place] [address] MCV (RBC) [Entitic vol] 93.6 fL Normal 83.2-95.6 [facility] Comment on above: Performed By: #### C BC1 #### [facility] [address] [place] [address] Platelet mean volume (Bld) [Entitic vol] 10.6 fL Normal 8.7-12.0 [facility] Comment on above: Performed By: #### C BC1 #### [facility] [address] [place], [place] [address] Platelets (Bld) [#/Vol] 130 thou/cmm Low 141-365 [facility] Comment on above: Performed By: #### C BC1 #### [facility] [address] [place], [place] [address] RBC (Bld) [#/Vol] 5.14 mil/cmm Normal 4.63-6.08 [facility] Comment on above: Performed By: #### C BC1 #### [facility] [address] [place] [address] RDW SD 45.9 fl High 36.1-45.8 [facility] Comment on above: Performed By: #### C BC1 #### [facility] [address] [place] [address] WBC (Bld) [#/Vol] 7.90 thou/cmm Normal 4.23-9.07 [facility] Comment on above: Performed By: #### C BC1 #### [facility] [address] [place], [place] [address] Phosphorus Bloodon 9 Phosphate [Mass/Vol] 4.0 mg/dL Normal 2.5-4.9 [facility] Comment on above: Performed By: #### P HOS #### [place] [address] Comprehensive Panelon 2018 ALP [Catalytic activity/Vol] 61 U/L Normal 45-117 [facility] Comment on above: Performed By: #### P 14 #### [facility] [address] [place], [place] [address] Bilirubin [Mass/Vol] 0.4 mg/dL Normal 0.2-1.0 [facility] Comment on above: Performed By: #### P 14 #### [facility] [address] [place], [place] [address] Protein [Mass/Vol] 6.9 g/dL Normal 6.4-8.2 [facility] Comment on above: Performed By: #### P 14 #### [facility] [address] [place], [place] [address] Creatinine [Mass/Vol] 1.01 mg/dL Normal 0.67-1.17 [facility] Comment on above: Performed By: #### P 14 #### [facility] [address] [place], [place] [address] ALT [Catalytic activity/Vol] 17 U/L Normal 12-78 [facility] Comment on above: Performed By: #### P 14 #### [facility] [address] [place], [place] [address] AST [Catalytic activity/Vol] 6 U/L Low 15-37 [facility] Comment on above: Performed By: #### P 14 #### [facility] [address] [place], [place] [address] Albumin [Mass/Vol] 3.4 g/dL Normal 3.4-5.0 [facility] Comment on above: Performed By: #### P 14 #### [facility] [address] [place], [place] [address] Anion gap [Moles/Vol] 7 mmol/L Low 8-16 [facility] Comment on above: Performed By: #### P 14 #### [facility] [address] [place], [place] [address] CO2 [Moles/Vol] 30 mmol/L Normal 21-32 [facility] Comment on above: Performed By: #### P 14 #### [facility] [address] [place], [place] [address] Glucose [Mass/Vol] 167 mg/dL High 70-99 [facility] Comment on above: Performed By: #### P 14 #### [facility] [address] [place], [place] [address] Urea nitrogen [Mass/Vol] 15 mg/dL Normal 7-18 [facility] Comment on above: Performed By: #### P 14 #### [facility] [address] [place], [place] [address] Calcium [Mass/Vol] 8.7 mg/dL Normal 8.5-10.1 [facility] Comment on above: Performed By: #### P 14 #### [facility] [address] [place], [place] [address] Chloride [Moles/Vol] 107 mmol/L Normal 98-107 [facility] Comment on above: Performed By: #### P 14 #### [facility] [address] [place] [address] Potassium [Moles/Vol] 4.0 mmol/L Normal 3.5-5.1 [facility] Comment on above: Performed By: #### P 14 #### [facility] [address] [place] [address] Sodium [Moles/Vol] 140 mmol/L Normal 136-145 [facility] Comment on above: Performed By: #### P 14 #### [facility] [address] [place] [address] Hemogram/Diffon 09-27-2019 Abs Immature Grans 0.01 thou/cmm Normal 0.00-0.05 [facility] Comment on above: Performed By: #### C BCD1 #### [place] [address] Abs Neut (ANC) 3.42 thou/cmm Normal 1.78-5.38 [facility] Comment on above: Performed By: #### C BCD1 #### [facility] [address] [place] [address] Abs. Baso 0.05 thou/cmm Normal 0.01-0.08 [facility] Comment on above: Performed By: #### C BCD1 #### [place] [address] Abs. [place] 0.40 thou/cmm Normal 0.30-0.82 [facility] Comment on above: Performed By: #### C BCD1 #### [facility] [address] [place] [address] Basophils/100 WBC (Bld) 1.0 % Normal [facility] Comment on above: Performed By: #### C BCD1 #### [place] [address] Eosinophils (Bld) [#/Vol] 0.05 thou/cmm Normal 0.04-0.54 [facility] Comment on above: Performed By: #### C BCD1 #### [facility] [address] [place], [place] [address] Eosinophils/100 WBC (Bld) 1.0 % Normal [facility] Comment on above: Performed By: #### C BCD1 #### [facility] [address] [place], [place] [address] Erythrocyte distribution width (RBC) [Ratio] 13.2 % Normal 11.6-14.4 [facility] Comment on above: Performed By: #### C BCD1 #### [facility] [address] [place] [address] Hematocrit (Bld) [Volume fraction] 44.1 % Normal 40.1-51.0 [facility] Comment on above: Performed By: #### C BCD1 #### [facility] [address] [place] [address] Hemoglobin (Bld) [Mass/Vol] 14.5 g/dL Normal 13.7-17.5 [facility] Comment on above: Performed By: #### C BCD1 #### [facility] [address] [place] [address] Immature Grans 0.20 % Normal [facility] Comment on above: Performed By: #### C BCD1 #### [facility] [address] [place] [address] Lymphocytes (Bld) [#/Vol] 1.05 thou/cmm Normal 0.84-2.85 [facility] Comment on above: Performed By: #### C BCD1 #### [facility] [address] [place], [place] [address] Lymphocytes/100 WBC (Bld) 21.1 % Normal [facility] Comment on above: Performed By: #### C BCD1 #### [facility] [address] [place] [address] MCH (RBC) [Entitic mass] 30.5 pg Normal 25.7-32.2 [facility] Comment on above: Performed By: #### C BCD1 #### [facility] [address] [place] [address] MCHC (RBC) [Mass/Vol] 32.9 % Normal 32.3-36.5 [facility] Comment on above: Performed By: #### C BCD1 #### [facility] [address] [place], [place] [address] MCV (RBC) [Entitic vol] 92.8 fL Normal 83.2-95.6 [facility] Comment on above: Performed By: #### C BCD1 #### [facility] [address] [place], [place] [address] Monocytes/100 WBC (Bld) 8.0 % Normal [facility] Comment on above: Performed By: #### C BCD1 #### [facility] [address] [place] [address] Platelet mean volume (Bld) [Entitic vol] 10.9 fL Normal 8.7-12.0 [facility] Comment on above: Performed By: #### C BCD1 #### [facility] [address] [place] [address] Platelets (Bld) [#/Vol] 106 thou/cmm Low 141-365 [facility] Comment on above: Performed By: #### C BCD1 #### [facility] [address] [place], [place] [address] RBC (Bld) [#/Vol] 4.75 mil/cmm Normal 4.63-6.08 [facility] Comment on above: Performed By: #### C BCD1 #### [facility] [address] [place] [address] RDW SD 45.2 fl Normal 36.1-45.8 [facility] Comment on above: Performed By: #### C BCD1 #### [facility] [address] [place], [place] [address] Seg Neutrophil 68.7 % Normal [facility] Comment on above: Performed By: #### C BCD1 #### [facility] [address] [place], [place] [address] WBC (Bld) [#/Vol] 4.98 thou/cmm Normal 4.23-9.07 [facility] Comment on above: Performed By: #### C BCD1 #### [facility] [address] [place] [address] Hgb A1con 09-27-2019 HbA1c (Bld) [Mass fraction] 5.5 % Normal 4.2-6.3 [facility] Comment on above: Result Comment: Nadia od is National Glycohemoglobin Standardization Program (NGSP) compliant. Performed By: #### H A1C #### [facility] [address] [place] [address] HbA1c (Bld) [Mass fraction] 111 mg/dl Normal [facility] Comment on above: Performed By: #### H A1C #### [facility] [address] [place] [address] MRSA Screenon 09-27-2019 MRSA DNA CHRISTIAN+probe Ql (Unsp spec) Test performed at [facility] No MRSA detected. Normal [facility] Comment on above: Performed By: #### P 14 #### [place] [address] Magnesium Bloodon 09-27-2019 Magnesium [Mass/Vol] 2.3 mg/dL Normal 1.6-2.6 [facility] Comment on above: Performed By: #### M AG #### [place] [address] Phosphorus Bloodon 9 Phosphate [Mass/Vol] 2.2 mg/dL Low 2.5-4.9 [facility] Comment on above: Performed By: #### P HOS #### [place] [address] Clostridium difficile detect ion by polymerase chain reaction C. difficile DNA CHRISTIAN+probe Ql (Unsp spec) [facility] Work Phone: Culture, urine Bacteria identified Cx Nom (U) Culture exhibits no growth. [facility] Work Phone: ECG B/O W INTERP (MED OFFICE ) [facility] EP Panel Gastrointestinal pathogens panel CHRISTIAN+probe (Stl) [facility] Work Phone: Lower GI hemoglobin IA Ql (S tl) Stool Occult Blood (WIL) Positive [facility] Work Phone: No Panel Information Nasal Screen MRSA/MSSA [facility] Work Phone: Ova and parasites Ova and parasites identified LM Nom (Unsp spec) [facility] Work Phone: Stool Clostridium difficile detection C. difficile Ql (Stl) [facility] Work Phone: Stool lactoferrin detection by immunoassay Lactoferrin IA Ql (Stl) [facility] Work Phone: Vital Signs Date Time Vital Sign Value Performing Clinician Faci lity 05-18-2025 09:36-0400 Body height 190.[address] Helen Lainez MD Work Phone: [facility] 05-18-2025 09:36-0400 Body mass index (BMI) [Ratio] 18.8 kg/m2 Dr. Helen Lainez MD Work Phone: [facility] 05-18-2025 09:36-0400 Body temperature 97.4 [degF] Dr. Helen Lainez MD Work Phone: [facility] 05-18-2025 09:36-0400 Body weight 68.[address] Helen Lainez MD Work Phone: [facility] 05-18-2025 09:36-0400 Diastolic blood pressure 60 mm[Hg] Dr. Helen Lainez MD Work Phone: [facility] 05-18-2025 09:36-0400 Heart rate 70 /min Dr. Helen Lainez MD Work Phone: [facility] 05-18-2025 09:36-0400 Respiratory rate 16 /min Dr. Helen Lainez MD Work Phone: [facility] 05-18-2025 09:36-0400 SaO2% (BldA) [Mass fraction] 97 % Dr. Helen Lainez MD Work Phone: [facility] 05-18-2025 09:36-0400 Systolic blood pressure 96 mm[Hg] Dr. Helen Lainez MD Work Phone: [facility] 05-03-2025 10:46-0400 Body height 190.[address] Helen Lainez MD Work Phone: [facility] 05-03-2025 10:18-0400 Body mass index (BMI) [Ratio] 18.8 kg/m2 Dr. Helen Lainez MD Work Phone: [facility] 05-03-2025 10:18-0400 Body weight 68.[address] Helen Lainez MD Work Phone: [facility] 05-03-2025 10:18-0400 Diastolic blood pressure 80 mm[Hg] Dr. Helen Lainez MD Work Phone: [facility] 05-03-2025 10:18-0400 Heart rate 70 /min Dr. Helen Lainez MD Work Phone: [facility] 05-03-2025 10:18-0400 Respiratory rate 18 /min Dr. Helen Lainez MD Work Phone: [facility] 05-03-2025 10:18-0400 SaO2% (BldA) [Mass fraction] 98 % Dr. Helen Lainez MD Work Phone: [facility] 05-03-2025 10:18-0400 Systolic blood pressure 123 mm[Hg] Dr. Helen Lainez MD Work Phone: [facility] 04-13-2025 10:53-0400 Body height 190.[address] Helen Lainez MD Work Phone: [facility] 04-13-2025 10:53-0400 Body mass index (BMI) [Ratio] 19.3 kg/m2 Dr. Helen Lainez MD Work Phone: [facility] 04-13-2025 10:53-0400 Body weight 70.[address] Helen Lainez MD Work Phone: [facility] 04-13-2025 10:53-0400 Diastolic blood pressure 60 mm[Hg] Dr. Helen Lainez MD Work Phone: [facility] 04-13-2025 10:53-0400 Heart rate 69 /min Dr. Helen Lainez MD Work Phone: [facility] 04-13-2025 10:53-0400 Respiratory rate 16 /min Dr. Helen Lainez MD Work Phone: [facility] 04-13-2025 10:53-0400 SaO2% (BldA) [Mass fraction] 97 % Dr. Helen Lainez MD Work Phone: [facility] 04-13-2025 10:53-0400 Systolic blood pressure 94 mm[Hg] Dr. Helen Lainez MD Work Phone: [facility] 03-08-2025 10:33-0400 Body height 190.[address] Helen Lainez MD Work Phone: [facility] 03-08-2025 10:33-0400 Body mass index (BMI) [Ratio] 19.4 kg/m2 Dr. Helen Lainez MD Work Phone: [facility] 03-08-2025 10:33-0400 Body weight 70.[address] Helen Lainez MD Work Phone: [facility] 03-08-2025 10:33-0400 Diastolic blood pressure 66 mm[Hg] Dr. Helen Lainez MD Work Phone: [facility] 03-08-2025 10:33-0400 Heart rate 79 /min Dr. Helen Lainez MD Work Phone: [facility] 03-08-2025 10:33-0400 Respiratory rate 16 /min Dr. Helen Lainez MD Work Phone: [facility] 03-08-2025 10:33-0400 SaO2% (BldA) [Mass fraction] 98 % Dr. Helen Lainez MD Work Phone: [facility] 03-08-2025 10:33-0400 Systolic blood pressure 106 mm[Hg] Dr. Helen Lainez MD Work Phone: [facility] 02-10-2025 09:25-0400 Body temperature 97.2 [degF] Dr. Helen Lainez MD Work Phone: [facility] 02-10-2025 09:25-0400 Diastolic blood pressure 55 mm[Hg] Dr. Helen Lainez MD Work Phone: [facility] 02-10-2025 09:25-0400 Heart rate 72 /min Dr. Helen Lainez MD Work Phone: [facility] 02-10-2025 09:25-0400 Respiratory rate 16 /min Dr. Helen Lainez MD Work Phone: [facility] 02-10-2025 09:25-0400 SaO2% (BldA) [Mass fraction] 97 % Dr. Helen Lainez MD Work Phone: [facility] 02-10-2025 09:25-0400 Systolic blood pressure 95 mm[Hg] Dr. Helen Lainez MD Work Phone: [facility] 02-10-2025 08:03-0400 Body height 190.[address] Helen Lainez MD Work Phone: [facility] 02-10-2025 08:03-0400 Body mass index (BMI) [Ratio] 18.4 kg/m2 Dr. Helen Lainez MD Work Phone: [facility] 02-10-2025 08:03-0400 Body weight [address] Helen Lainez MD Work Phone: [facility] 01-26-2025 19:19-0500 Body temperature 98.3 [degF] Dr. Helen Lainez MD Work Phone: [facility] 01-26-2025 19:19-0500 Diastolic blood pressure 80 mm[Hg] Dr. Helen Lainez MD Work Phone: [facility] 01-26-2025 19:19-0500 Heart rate 65 /min Dr. Helen Lainez MD Work Phone: [facility] 01-26-2025 19:19-0500 Respiratory rate 12 /min Dr. Helen Lainez MD Work Phone: [facility] 01-26-2025 19:19-0500 SaO2% (BldA) [Mass fraction] 100 % Dr. Helen Lainez MD Work Phone: [facility] 01-26-2025 19:19-0500 Systolic blood pressure 112 mm[Hg] Dr. Helen Lainez MD Work Phone: [facility] 01-26-2025 17:51-0500 Body mass index (BMI) [Ratio] 19.1 kg/m2 Dr. Helen Lainez MD Work Phone: [facility] 01-26-2025 17:51-0500 Body weight 69.[address] Helen Lainez MD Work Phone: [facility] 11-11-2024 21:42-0500 Diastolic blood pressure 75 mm[Hg] Dr. Helen Lainez MD Work Phone: [facility] 11-11-2024 21:42-0500 Heart rate 62 /min Dr. Helen Lainez MD Work Phone: [facility] 11-11-2024 21:42-0500 Respiratory rate 16 /min Dr. Helen Lainez MD Work Phone: [facility] 11-11-2024 21:42-0500 SaO2% (BldA) [Mass fraction] 98 % Dr. Helen Lainez MD Work Phone: [facility] 11-11-2024 21:42-0500 Systolic blood pressure 123 mm[Hg] Dr. Helen Lainez MD Work Phone: [facility] 11-11-2024 19:42-0500 Body temperature 97.8 [degF] Dr. Helen Lainez MD Work Phone: [facility] 11-06-2024 08:28-0500 Body mass index (BMI) [Ratio] 18.7 kg/m2 Dr. Helen Lainez MD Work Phone: [facility] 11-06-2024 08:28-0500 Body weight 68.[address] Helen Lainez MD Work Phone: [facility] 11-06-2024 08:28-0500 Diastolic blood pressure 62 mm[Hg] Dr. Helen Lainez MD Work Phone: [facility] 11-06-2024 08:28-0500 Heart rate 73 /min Dr. Helen Lainez MD Work Phone: [facility] 11-06-2024 08:28-0500 Respiratory rate 16 /min Dr. Helen Lainez MD Work Phone: [facility] 11-06-2024 08:28-0500 SaO2% (BldA) [Mass fraction] 97 % Dr. Helen Lainez MD Work Phone: [facility] 11-06-2024 08:28-0500 Systolic blood pressure 101 mm[Hg] Dr. Helen Lainez MD Work Phone: [facility] 10-13-2024 10:07-0500 Body temperature 97.8 [degF] Dr. Helen Lainez MD Work Phone: [facility] 10-13-2024 10:07-0500 Body weight 68.[address] Helen Lainez MD Work Phone: [facility] 10-13-2024 10:07-0500 Diastolic blood pressure 63 mm[Hg] Dr. Helen Lainez MD Work Phone: [facility] 10-13-2024 10:07-0500 Heart rate 67 /min Dr. Helen Lainez MD Work Phone: [facility] 10-13-2024 10:07-0500 Respiratory rate 16 /min Dr. Helen Lainez MD Work Phone: [facility] 10-13-2024 10:07-0500 SaO2% (BldA) [Mass fraction] 94 % Dr. Helen Lainez MD Work Phone: [facility] 10-13-2024 10:07-0500 Systolic blood pressure 96 mm[Hg] Dr. Helen Lainez MD Work Phone: [facility] 03-18-2024 14:50-0400 Body height 190.5 cm Denice Marrufo APRN.LOIN TRIMMER Work Phone: [facility] 03-18-2024 14:50-0400 Body mass index (BMI) [Ratio] 19.37 kg/m2 Denice Marrufo APRN.LOIN TRIMMER Work Phone: [facility] 03-18-2024 14:50-0400 Body weight 70.31 kg Denice Marrufo APRN.LOIN TRIMMER Work Phone: [facility] 03-18-2024 14:50-0400 Diastolic blood pressure 72 mm[Hg] Denice Marrufo APRN.LOIN TRIMMER Work Phone: [facility] 03-18-2024 14:50-0400 Heart rate 70 /min Denice Marrufo APRN.LOIN TRIMMER Work Phone: [facility] 03-18-2024 14:50-0400 SaO2% (BldA) [Mass fraction] 95 % Denice Marrufo ALINING INSPECTOR.LOIN TRIMMER Work Phone: [facility] 03-18-2024 14:50-0400 Systolic blood pressure 127 mm[Hg] Denice Marrufo APRN.LOIN TRIMMER Work Phone: [facility] 02-28-2024 19:06-0400 Body temperature 98.1 [degF] Dr. Sree Ash Work Phone: [facility] 02-28-2024 19:06-0400 Diastolic blood pressure 68 mm[Hg] Dr. Sree Ash Work Phone: [facility] 02-28-2024 19:06-0400 Heart rate 69 /min Dr. Sree Ash Work Phone: [facility] 02-28-2024 19:06-0400 Respiratory rate 16 /min Dr. Sree Ash Work Phone: [facility] 02-28-2024 19:06-0400 SaO2% (BldA) [Mass fraction] 99 % Dr. Sree Ash Work Phone: [facility] 02-28-2024 19:06-0400 Systolic blood pressure 116 mm[Hg] Dr. Sree Ash Work Phone: [facility] 02-28-2024 18:06-0400 Body height 190.[address] Sree Ash Work Phone: [facility] 02-28-2024 18:06-0400 Body mass index (BMI) [Ratio] 19.2 kg/m2 Dr. Sree Ash Work Phone: [facility] 02-28-2024 18:06-0400 Body weight 69.[address] Sree Ash Work Phone: [facility] 02-07-2024 23:28-0400 Body temperature 97.6 [degF] Dr. Sree Ash Work Phone: [facility] 02-07-2024 23:28-0400 Diastolic blood pressure 78 mm[Hg] Dr. Sree Ash Work Phone: [facility] 02-07-2024 23:28-0400 Heart rate 73 /min Dr. Sree Ash Work Phone: [facility] 02-07-2024 23:28-0400 Respiratory rate 19 /min Dr. Sree Ash Work Phone: 1(389)725-112369 [place] [address] 02-07-2024 23:28-0400 SaO2% (BldA) [Mass fraction] 98 % Dr. Sree Ash Work Phone: 4(675)402-821769 [place] [address] 02-07-2024 23:28-0400 Systolic blood pressure 116 mm[Hg] Dr. Sree Ash Work Phone: 3(303)263-907460 [place] [address] 02-07-2024 16:34-0400 Body height 190.[address] Sree Ash Work Phone: 0(654)072-332360 [place] [address] 02-07-2024 16:34-0400 Body mass index (BMI) [Ratio] 18.9 kg/m2 Dr. Sree Ash Work Phone: 8(939)108-348360 [place] [address] 02-07-2024 16:34-0400 Body weight 68.[address] Sree Ash Work Phone: 8(819)105-111269 [place] [address] 12-13-2023 12:54-0500 Body height [address] Sree Ash Work Phone: 0(838)637-705669 [place] [address] 12-13-2023 12:54-0500 Body mass index (BMI) [Ratio] 18.7 kg/m2 Dr. Sree Ash Work Phone: 3(604)591-586369 [place] [address] 12-13-2023 12:54-0500 Body weight 68.[address] Sree Ash Work Phone: 3(802)422-307269 [place] [address] 12-13-2023 12:54-0500 Diastolic blood pressure 62 mm[Hg] Dr. Sree Ash Work Phone: [facility] 12-13-2023 12:54-0500 Heart rate 72 /min Dr. Sree Ash Work Phone: [facility] 12-13-2023 12:54-0500 Respiratory rate 18 /min Dr. Sree Ash Work Phone: [facility] 12-13-2023 12:54-0500 SaO2% (BldA) [Mass fraction] 99 % Dr. Sree Ash Work Phone: [facility] 12-13-2023 12:54-0500 Systolic blood pressure 119 mm[Hg] Dr. Sree Ash Work Phone: [facility] 11-19-2023 08:59-0500 Body temperature 97.3 [degF] Nurse Pob Work Phone: [facility] 11-19-2023 08:59-0500 Diastolic blood pressure 56 mm[Hg] Nurse Pob Work Phone: [facility] 11-19-2023 08:59-0500 Systolic blood pressure 98 mm[Hg] Nurse Pob Work Phone: [facility] 09-30-2023 10:03-0500 Body height 190.5 cm Marco Jaime MD Work Phone: [facility] 09-30-2023 10:03-0500 Body weight 67.59 kg Marco Jaime MD Work Phone: [facility] 09-30-2023 10:03-0500 Diastolic blood pressure 53 mm[Hg] Marco Jaime MD Work Phone: [facility] 09-30-2023 10:03-0500 Heart rate 71 /min Marco Jaime MD Work Phone: [facility] 09-30-2023 10:03-0500 SaO2% (BldA) [Mass fraction] 99 % Marco Jaime MD Work Phone: [facility] 09-30-2023 10:03-0500 Systolic blood pressure 90 mm[Hg] Marco Jaime MD Work Phone: [facility] 07-30-2023 13:08-0400 Body height 190.[address] Sree Ash Work Phone: [facility] 07-30-2023 13:08-0400 Body mass index (BMI) [Ratio] 18.6 kg/m2 Dr. Sree Ash Work Phone: [facility] 07-30-2023 13:08-0400 Body weight 67.[address] Sree Ash Work Phone: [facility] 07-30-2023 13:08-0400 Diastolic blood pressure 67 mm[Hg] Dr. Sree Ash Work Phone: 2(112)337-808169 [place] [address] 07-30-2023 13:08-0400 Heart rate 73 /min Dr. Sree Ash Work Phone: 7(433)215-431769 [place] [address] 07-30-2023 13:08-0400 Respiratory rate 18 /min Dr. Sree Ash Work Phone: 7(228)550-957769 [place] [address] 07-30-2023 13:08-0400 SaO2% (BldA) [Mass fraction] 99 % Dr. Sree Ash Work Phone: 9(431)463-864069 [place] [address] 07-30-2023 13:08-0400 Systolic blood pressure 112 mm[Hg] Dr. Sree Ash Work Phone: [facility] 07-02-2023 22:02-0400 Body height 190.[address] Sree Ash Work Phone: [facility] 07-02-2023 22:02-0400 Body mass index (BMI) [Ratio] 18.8 kg/m2 Dr. Sree Ash Work Phone: [facility] 07-02-2023 22:02-0400 Body temperature 97.6 [degF] Dr. Sree Ash Work Phone: [facility] 07-02-2023 22:02-0400 Body weight 68.[address] Sree Ash Work Phone: [facility] 07-02-2023 22:02-0400 Diastolic blood pressure 66 mm[Hg] Dr. Sree Ash Work Phone: [facility] 07-02-2023 22:02-0400 Heart rate 72 /min Dr. Sree Ash Work Phone: [facility] 07-02-2023 22:02-0400 Respiratory rate 15 /min Dr. Sree Ash Work Phone: [facility] 07-02-2023 22:02-0400 SaO2% (BldA) [Mass fraction] 100 % Dr. Sree Ash Work Phone: [facility] 07-02-2023 22:02-0400 Systolic blood pressure 108 mm[Hg] Dr. Sree Ash Work Phone: 7(334)413-739760 [place] [address] 12-05-2022 14:34-0500 Body height 190.[address] Sree Ash Work Phone: 1(143)396-353460 [place] [address] 12-05-2022 14:34-0500 Body mass index (BMI) [Ratio] 19.3 kg/m2 Dr. Sree Ash Work Phone: 5(649)403-106760 [place] [address] 12-05-2022 14:34-0500 Body weight 70.[address] Sree Ash Work Phone: 6(445)697-792760 [place] [address] 12-05-2022 14:34-0500 Diastolic blood pressure 62 mm[Hg] Dr. Sree Ash Work Phone: 5(250)148-196169 [place] [address] 12-05-2022 14:34-0500 Heart rate 68 /min Dr. Sree Ash Work Phone: [facility] 12-05-2022 14:34-0500 Respiratory rate 18 /min Dr. Sree Ash Work Phone: 4(569)897-798369 [place] [address] 12-05-2022 14:34-0500 Systolic blood pressure 106 mm[Hg] Dr. Sree Ash Work Phone: [facility] 11-05-2022 13:51-0500 Heart rate 56 /min Dr. Sree Ash Work Phone: 0(367)246-969569 [place] [address] 11-05-2022 13:51-0500 Respiratory rate 16 /min Dr. Sree Ash Work Phone: [facility] 11-05-2022 13:51-0500 SaO2% (BldA) [Mass fraction] 95 % Dr. Sree Ash Work Phone: [facility] 11-05-2022 12:37-0500 Inhaled oxygen flow rate 2 L/min Dr. Sree Ash Work Phone: [facility] 11-05-2022 12:05-0500 Diastolic blood pressure 73 mm[Hg] Dr. Sree Ash Work Phone: [facility] 11-05-2022 12:05-0500 Systolic blood pressure 128 mm[Hg] Dr. Sree Ash Work Phone: [facility] 11-05-2022 09:24-0500 Body height 190.[address] Sree Ash Work Phone: [facility] Work Phone: 11-05-2022 09:24-0500 Body mass index (BMI) [Ratio] 18.8 kg/m2 Dr. Sree Ash Work Phone: [facility] 11-05-2022 09:24-0500 Body temperature 98 [degF] Dr. Sree Ash Work Phone: [facility] 11-05-2022 09:24-0500 Body weight 68.[address] Sree Ash Work Phone: [facility] 07-17-2022 09:17-0400 Body height 190.[address] Sree Ash Work Phone: [facility] Work Phone: 07-17-2022 09:16-0400 Body mass index (BMI) [Ratio] 19.6 kg/m2 Dr. Sree Ash Work Phone: [facility] Work Phone: 07-17-2022 09:16-0400 Body weight 71.[address] Sree Ash Work Phone: [facility] Work Phone: 07-17-2022 09:16-0400 Diastolic blood pressure 71 mm[Hg] Dr. Sree Ash Work Phone: [facility] Work Phone: 07-17-2022 09:16-0400 Heart rate 71 /min Dr. Sree sAh Work Phone: [facility] Work Phone: 07-17-2022 09:16-0400 Respiratory rate 18 /min Dr. Sree Ash Work Phone: [facility] Work Phone: 07-17-2022 09:16-0400 SaO2% (BldA) [Mass fraction] 99 % Dr. Sree Ash Work Phone: [facility] Work Phone: 07-17-2022 09:16-0400 Systolic blood pressure 119 mm[Hg] Dr. Sree Ash Work Phone: [facility] Work Phone: 04-16-2022 15:12-0400 Body height 190.[address] Clarke Roberts Work Phone: [facility] Work Phone: 04-16-2022 15:12-0400 Body mass index (BMI) [Ratio] 19.7 kg/m2 Dr. Clarke Roberts Work Phone: [facility] Work Phone: 04-16-2022 15:12-0400 Body weight 71.[address] Clarke Roberts Work Phone: [facility] Work Phone: 04-16-2022 15:12-0400 Diastolic blood pressure 59 mm[Hg] Dr. Clarke Roberts Work Phone: [facility] Work Phone: 04-16-2022 15:12-0400 Heart rate 75 /min Dr. Clarke Roberts Work Phone: [facility] Work Phone: 04-16-2022 15:12-0400 Respiratory rate 16 /min Dr. Clarke Roberts Work Phone: [facility] Work Phone: 04-16-2022 15:12-0400 Systolic blood pressure 105 mm[Hg] Dr. Clarke Roberts Work Phone: [facility] Work Phone: 04-16-2022 15:12-0400 Body height 190.[address] Sree Ash Work Phone: [facility] Work Phone: 04-16-2022 15:12-0400 Body mass index (BMI) [Ratio] 19.7 kg/m2 Dr. Sree Ash Work Phone: [facility] Work Phone: 04-16-2022 15:12-0400 Body weight 71.[address] Sree Ash Work Phone: [facility] Work Phone: 04-16-2022 15:12-0400 Diastolic blood pressure 59 mm[Hg] Dr. Sree Ash Work Phone: [facility] Work Phone: 04-16-2022 15:12-0400 Heart rate 75 /min Dr. Sree Ash Work Phone: [facility] Work Phone: 04-16-2022 15:12-0400 Respiratory rate 16 /min Dr. Sree Ash Work Phone: [facility] Work Phone: 04-16-2022 15:12-0400 Systolic blood pressure 105 mm[Hg] Dr. Sree Ash Work Phone: [facility] Work Phone: 02-23-2022 06:39-0400 Heart rate 77 /min Dr. Sree Ash Work Phone: [facility] Work Phone: 02-23-2022 06:39-0400 Respiratory rate 16 /min Dr. Sree Ash Work Phone: [facility] Work Phone: 02-23-2022 06:39-0400 SaO2% (BldA) [Mass fraction] 98 % Dr. Sree Ash Work Phone: [facility] Work Phone: 02-22-2022 16:00-0400 Body temperature 97.1 [degF] Dr. Sree Ash Work Phone: [facility] Work Phone: 02-22-2022 16:00-0400 Diastolic blood pressure 70 mm[Hg] Dr. Sree Ash Work Phone: [facility] Work Phone: 02-22-2022 16:00-0400 Systolic blood pressure 119 mm[Hg] Dr. Sree Ash Work Phone: [facility] Work Phone: 02-21-2022 05:34-0400 Diastolic blood pressure 60 mm[Hg] Dr. Sree Ash Work Phone: [facility] Work Phone: 02-21-2022 05:34-0400 Heart rate 86 /min Dr. Sree Ash Work Phone: [facility] Work Phone: 02-21-2022 05:34-0400 Systolic blood pressure 114 mm[Hg] Dr. Sree Ash Work Phone: [facility] Work Phone: 02-20-2022 15:39-0400 Body weight 71.[address] Sree Ash Work Phone: [facility] Work Phone: 02-20-2022 14:08-0400 Body temperature 97.5 [degF] Dr. Sree Ash Work Phone: [facility] Work Phone: 02-20-2022 14:08-0400 Respiratory rate 16 /min Dr. Sree Ash Work Phone: [facility] Work Phone: 02-20-2022 14:08-0400 SaO2% (BldA) [Mass fraction] 98 % Dr. Sree Ash Work Phone: [facility] Work Phone: 02-19-2022 14:02-0400 Body height 190.[address] Sree Ash Work Phone: [facility] Work Phone: 02-10-2022 16:13-0400 Body mass index (BMI) [Ratio] 21.1 kg/m2 Dr. Sree Ash Work Phone: [facility] Work Phone: 02-10-2022 14:12-0400 Body temperature 98.1 [degF] Dr. Sree Ash Work Phone: [facility] Work Phone: 02-10-2022 14:12-0400 Diastolic blood pressure 73 mm[Hg] Dr. Sree Ash Work Phone: [facility] Work Phone: 02-10-2022 14:12-0400 Heart rate 72 /min Dr. Sree Ash Work Phone: [facility] Work Phone: 02-10-2022 14:12-0400 Respiratory rate 16 /min Dr. Sree Ash Work Phone: [facility] Work Phone: 02-10-2022 14:12-0400 SaO2% (BldA) [Mass fraction] 97 % Dr. Sree Ash Work Phone: [facility] Work Phone: 02-10-2022 14:12-0400 Systolic blood pressure 120 mm[Hg] Dr. Sree Ash Work Phone: [facility] Work Phone: 02-08-2022 12:36-0400 Body mass index (BMI) [Ratio] 20.2 kg/m2 Dr. Sree Ash Work Phone: [facility] Work Phone: 02-08-2022 12:36-0400 Body weight 73.[address] Sree Ash Work Phone: [facility] Work Phone: 11-06-2021 13:48-0500 Body mass index (BMI) [Ratio] 20.3 kg/m2 Dr. Sree Ash Work Phone: [facility] Work Phone: 11-06-2021 13:48-0500 Body weight 73.[address] Sree Ash Work Phone: [facility] Work Phone: 11-06-2021 13:48-0500 Diastolic blood pressure 82 mm[Hg] Dr. Sree Ash Work Phone: [facility] Work Phone: 11-06-2021 13:48-0500 Heart rate 76 /min Dr. Sree Ash Work Phone: [facility] Work Phone: 11-06-2021 13:48-0500 Respiratory rate 16 /min Dr. Sree Ash Work Phone: [facility] Work Phone: 11-06-2021 13:48-0500 Systolic blood pressure 136 mm[Hg] Dr. Sree Ash Work Phone: [facility] Work Phone: Encounters Encounter Date Encounter Type Care Provider Facility Start: 05-18-2025 End: 05-18-2025 ambulatory Helen Lainez Facility:[facility] Start: 05-18-2025 End: 05-18-2025 Patient encounter procedure Yoko HE -[facility] Work Phone: Start: 05-03-2025 End: 05-03-[address] Helen Lainez MD Work Phone: [facility] Work Phone: Start: 05-03-2025 End: 05-03-2025 Patient encounter procedure Rashmi Fatima NP-C -Laboratory Work Phone: Start: 05-03-2025 End: 05-03-[address] Helen Lainez MD Work Phone: [facility] Work Phone: Start: 05-03-2025 End: 05-03-2025 Patient encounter procedure Rashmi HE -[facility] Work Phone: Start: 05-03-2025 End: 05-03-2025 ambulatory Rashmi Fatima NP Facility:[facility] Start: 04-23-2025 End: 04-23-[address] Helen Lainez MD Work Phone: [facility] Work Phone: Start: 04-23-2025 End: 04-23-2025 Patient encounter procedure Yoko HE -[facility] Work Phone: Start: 04-23-2025 End: 04-23-2025 ambulatory Helen Lainez Facility:[facility] Start: 04-13-2025 End: 04-13-2025 Patient encounter procedure Yoko HE -[facility] Work Phone: Start: 04-13-2025 End: 04-13-[address] Helen Lainez MD Work Phone: [facility] Work Phone: Start: 03-15-2025 End: 03-15-[address] Helen Lainez MD Work Phone: [facility] Work Phone: Start: 03-15-2025 End: 03-15-2025 Patient encounter procedure Yoko HE -[facility] Work Phone: Start: 03-15-2025 End: 03-15-2025 ambulatory [facility] Facility:[facility] Start: 03-08-2025 End: 03-08-2025 Patient encounter procedure Yoko HE -[facility] Work Phone: Start: 03-08-2025 End: 03-08-2025 ambulatory [facility] Facility:[facility] Start: 02-17-2025 End: 02-17-2025 ambulatory [facility] Facility:[facility] Start: 02-17-2025 End: 02-17-[address] Clarke Roberts MD -[facility] Work Phone: Start: 02-10-2025 ambulatory [facility] Facility: [facility] Start: 02-10-2025 Non-patient / Non-visit Juan Diego Reyes nd DO -[facility] Start: 02-10-2025 End: 02-10-2025 Admission to same day surgery center Juan Diego Noriega DO -Endoscopy Work Phone: Start: 02-10-2025 End: 02-10-[address] Helen Lainez MD Work Phone: [facility] Work Phone: Start: 01-26-2025 End: 01-26-2025 Emergency department patient visit Dr. Helen Lainez MD Work Phone: -Emergency Department Work Phone: Start: 12-10-2024 ambulatory [facility] Facility: [facility] Start: 11-18-2024 End: 11-18-2024 ambulatory Helen Miedel Facility:[facility] Start: 11-18-2024 End: 11-18-[address] Clarke Roberts MD -[facility] Work Phone: Start: 11-11-2024 End: 11-11-2024 Emergency department patient visit Dr. Liborio Abarca MD -Emergency Department Work Phone: Start: 11-06-2024 End: 11-06-[address] Rakesh Granados MD -[facility] Work Phone: Start: 11-06-2024 End: 11-06-2024 ambulatory Helen Miedel Facility:[facility] Start: 10-15-2024 End: 10-15-2024 Patient encounter procedure Yoko HE -Laboratory, Specimen Work Phone: Start: 10-15-2024 End: 10-15-2024 ambulatory [facility] Facility:[facility] Start: 10-13-2024 End: 10-13-2024 Patient encounter procedure Yoko HE -Laboratory Work Phone: Start: 10-13-2024 End: 10-13-2024 Patient encounter procedure Yoko HE -[facility] Work Phone: Start: 10-13-2024 End: 10-13-2024 ambulatory Helen Miedel Facility:[facility] Start: 10-13-2024 End: 10-13-2024 ambulatory Helen Miedel Facility:[facility] Start: 09-14-2024 ambulatory Helen Miedel Facility: [facility] Start: 09-11-2024 End: 09-11-2024 ambulatory Helen Mied Facility:[facility] Start: 08-19-2024 End: 08-19-2024 ambulatory Helen Miedel Facility:[facility] Start: 07-30-2024 End: 07-30-2024 ambulatory Helen Miedel Facility:[facility] Start: 07-30-2024 End: 07-30-2024 ambulatory Rashmi Fatima NP Facility:[facility] Start: 07-07-2024 End: 07-07-2024 ambulatory Helen Miedel Facility:[facility] Start: 05-27-2024 ambulatory Helen Mied Facility: [facility] Start: 05-27-2024 End: 05-27-[facility] Start: 05-20-2024 End: 05-20-2024 [facility] Start: 05-20-2024 End: 05-20-2024 [facility] Start: 04-03-2024 End: 04-03-2024 Telemedicine consultation with patient Nurse Card Ag Fletcher Erickson Work Phone: [facility] Start: 04-03-2024 End: 04-03-2024 ambulatory HELEN Carlo LAINEZ [facility] Comment on above: Cardiac resynchroniz ation therapy defibrillator (TRAVEL FREIGHT AND PASSENGER AGENT-D) in place (Primary Dx) Start: 03-27-2024 Follow-up encounter Marco Jaime MD Work Phone: [facility] Start: 03-27-2024 Patient encounter procedure Marco Jaime MD Work Phone: [facility] Start: 03-27-2024 Telephone encounter Denice juarez APRN.LOIN TRIMMER Work Phone: [facility] Comment on above: Wound Check Start: 03-26-2024 End: 03-27-2024 ambulatory MARCO JAIME Facility:[facility] Start: 03-18-2024 End: 03-18-2024 ambulatory DENICE MARRUFO Facility:[facility] Start: 03-18-2024 End: 03-18-2024 Patient encounter procedure Denice Marrufo ALINING INSPECTOR.LOIN TRIMMER Work Phone: [facility] Comment on above: Cardiac resynchroniz ation therapy defibrillator (TRAVEL FREIGHT AND PASSENGER AGENT-D) in place (Primary Dx); Implanted defibrillator electrode lead fracture, subsequent encounter; Persistent atrial fibrillation (HCC); Atypical atrial flutter (HCC); CHB (complete heart block) (HCC); S/P AV (atrioventricular) kyung ablation; 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 Start: 02-27-2024 Non-patient / Non-visit Dr. Chase Ash Work Phone: [facility] Work Phone: Start: 02-26-2024 Non-patient / Non-visit Dr. Chase Ash Work Phone: [facility] Start: 02-26-2024 End: 02-26-[address] Sree Ash Work Phone: [facility] Work Phone: Start: 02-26-2024 End: 02-26-[address] [facility] Start: 02-20-2024 End: 02-20-2024 ambulatory MARCO JAIME Facility:[facility] Start: 02-13-2024 End: 02-13-[address] Sree Ash Work Phone: [facility] Work Phone: Start: 02-09-2024 End: 02-09-[address] Sree Ash Work Phone: [facility] Work Phone: Start: 02-07-2024 End: 02-07-[address] Sree Ash Work Phone: [facility] Work Phone: Start: 02-07-2024 End: 02-07-2024 Emergency department patient visit Dr. Sree [facility] Start: 02-06-2024 End: 02-06-[address] Sree Ash Work Phone: [facility] Work Phone: Start: 02-04-2024 End: 02-04-[address] Sree Ash Work Phone: [facility] Work Phone: Start: 02-04-2024 End: 02-04-[address] [facility] Start: 01-17-2024 End: 01-17-[address] Sree Ash Work Phone: [facility] Work Phone: Start: 01-17-2024 End: 01-17-[address] [facility] Start: 01-09-2024 End: 01-09-[address] Sree Ash Work Phone: [facility] Work Phone: Start: 01-09-2024 End: 01-09-[address] [facility] Start: 12-13-2023 End: 12-13-[address] Sree Ash Work Phone: [facility] Work Phone: Start: 12-12-2023 End: 12-12-[address] Sree Ash Work Phone: [facility] Work Phone: Start: 12-12-2023 End: 12-12-[address] [facility]ree [facility]Ah [facility] Start: 12-12-[address] Sree akhtar Work Phone: [facility]-Physical Therapy Work Phone: Start: 11-26-[address] Sree akhtar [facility] Start: 11-20-2023 End: 11-20-2023 Non-patient / Non-visit Dr. Sree Ash Work Phone: [facility] Work Phone: Start: 11-20-2023 End: 11-20-[address] Sree Ash Work Phone: [facility] Work Phone: Start: 11-20-2023 End: 11-20-[address] Sree Ash Work Phone: [facility]-Pulmonary Services/Neurology Work Phone: Start: 11-19-2023 End: 11-19-2023 ambulatory SREE ASH Facility:[facility] Start: 11-19-2023 End: 11-19-2023 Nursing evaluation of patient and report Nurse Card Ag Dikedaisy Erickson Work Phone: [facility] Comment on above: ICD (implantable car dioverter-defibrillator) in place (Primary Dx) Start: 11-14-2023 End: 11-14-[address] Sree Ash Work Phone: [facility] Work Phone: Start: 11-14-2023 End: 11-14-[address] Sree Ash Work Phone: [facility]-Laboratory Work Phone: Start: 11-08-[address] Sree akhtar Work Phone: [facility]-Physical Therapy Work Phone: Start: 10-29-2023 End: 10-29-[address] Sree Ash Work Phone: [facility] Work Phone: Start: 10-29-2023 End: 10-29-[address] Sree Ash Work Phone: [facility]-Radiology, [facility] Work Phone: Start: 10-01-2023 Telephone encounter Marco Jaime MD Work Phone: [facility] Comment on above: Preparations For Pro cedures Start: 09-30-2023 End: 09-30-2023 ambulatory MARCO JAIME Facility:[facility] Start: 09-30-2023 End: 09-30-2023 Patient encounter procedure Marco Jaime MD Work Phone: [facility] Comment on above: Cardiac resynchroniz ation therapy defibrillator (TRAVEL FREIGHT AND PASSENGER AGENT-D) in place (Primary Dx); Atrial flutter, unspecified type (HCC); 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 Sree Ash Work Phone: [facility] Work Phone: Start: 08-09-2023 Non-patient / Non-visit Dr. Chase Ash Work Phone: [facility] Work Phone: Start: 08-09-2023 End: 08-09-[address] Sree Ash Work Phone: [facility] Work Phone: Start: 08-09-2023 End: 08-09-[address] Sree Ash Work Phone: [facility] Work Phone: Start: 07-30-2023 End: 07-30-[address] Sree Ash Work Phone: [facility] Work Phone: Start: 07-30-2023 End: 07-30-[address] Sree Ash Work Phone: [facility]-Laboratory Work Phone: Start: 07-30-2023 End: 07-30-[address] Sree Ash Work Phone: [facility] Work Phone: Start: 07-04-2023 End: 07-04-[address] Sree Ash Work Phone: [facility] Work Phone: Start: 07-04-2023 End: 07-04-[address] Sree Ash Work Phone: [facility]-Laboratory Work Phone: Start: 07-02-2023 End: 07-02-2023 Emergency department patient visit Dr. Sree Ash Work Phone: [facility]-Emergency Department Work Phone: Start: 06-04-2023 End: 06-04-[address] Sree Ash Work Phone: [facility] Work Phone: Start: 06-04-2023 End: 06-04-[address] [facility]ree [facility] Fl[facility] Start: 05-21-2023 End: 05-21-[address] Sree Ash Work Phone: [facility] Work Phone: Start: 05-21-2023 End: 05-21-[address] Sree Ash Work Phone: [facility] Work Phone: Start: 05-16-2023 End: 05-16-[address] Sree Ash Work Phone: [facility] Work Phone: Start: 05-07-2023 End: 05-07-[address] Sree Ash Work Phone: [facility] Work Phone: Start: 05-07-2023 End: 05-07-[address] Sree Ash Work Phone: [facility] Start: 04-20-2023 End: 04-20-[address] Sree Ash Work Phone: [facility] Start: 01-29-2023 End: 01-29-[address] Sree Ash Work Phone: [facility] Work Phone: Start: 01-29-2023 End: 01-29-[address] Sree Ash Work Phone: [facility], [facility] Office 3rd Flr Start: 01-28-2023 End: 01-28-[address] Sree Ash Work Phone: [facility] Work Phone: Start: 01-28-2023 End: 01-28-[address] [facility] Start: 01-24-2023 End: 01-24-[address] Sree Ash Work Phone: [facility] Work Phone: Start: 01-24-2023 End: 01-24-[address] Sree [facility] Start: 01-18-2023 End: 01-18-[address] Sree Ash Work Phone: [facility] Work Phone: Start: 01-18-2023 End: 01-18-[address] Sree [facility] Start: 01-17-2023 End: 01-17-[address] Sree Ash Work Phone: [facility] Work Phone: Start: 01-17-2023 End: 01-17-[address] [facility] Start: 01-16-2023 End: 01-16-[address] Sere Ash Work Phone: [facility] Work Phone: Start: 01-16-2023 End: 01-16-[address] [facility]ree [facility] Start: 12-25-2022 End: 12-25-[address] Sree [facility] Start: 12-19-2022 Non-patient / Non-visit Dr. Chase Ash Work Phone: [facility] Start: 12-18-2022 End: 12-18-[address] Sree Ash Work Phone: [facility] Work Phone: Start: 12-18-2022 End: 12-18-[address] Sree Ash Work Phone: [facility]-Pulmonary Services/Neurology Start: 12-13-2022 Non-patient / Non-visit Dr. Chase Ash Work Phone: [facility] Start: 12-13-2022 End: 12-13-[address] Sree Ash Work Phone: [facility] Work Phone: Start: 12-13-2022 End: 12-13-[address] [facility] Start: 12-05-2022 End: 12-05-[address] Sree Ash Work Phone: [facility] Start: 11-12-2022 End: 11-12-2022 ambulatory [facility] Work Phone: Start: 11-12-2022 End: 11-12-[address] Sree Ash Work Phone: [facility] Start: 11-11-2022 End: 11-11-[address] Sree Ash Work Phone: [facility] Work Phone: Start: 11-11-2022 End: 11-11-[address] Sree Ash Work Phone: [facility]-Laboratory, Specimen Start: 11-05-2022 End: 11-05-2022 Emergency department patient visit Dr. Sree Ash Work Phone: [facility]-Emergency Department Start: 10-22-2022 End: 10-22-[address] Sree Ash Work Phone: [facility] Work Phone: Start: 10-22-2022 End: 10-22-[address] Sree Ash Work Phone: [facility] Start: 10-22-2022 End: 10-22-[address] Sree Ash Work Phone: [facility] Work Phone: Start: 10-22-2022 End: 10-22-[address] [facility]ree [facility] Start: 10-16-2022 End: 10-16-[address] Sree Ash Work Phone: [facility] Work Phone: Start: 10-16-2022 End: 10-16-[address] [facility]ree [facility] Start: 09-26-2022 End: 09-26-[address] Sree Ash Work Phone: [facility] Work Phone: Start: 09-26-2022 End: 09-26-[address] Sree [facility] Start: 08-08-2022 End: 08-08-[address] Sree [facility] Start: 07-20-2022 End: 07-20-[address] Sree Ash Work Phone: [facility] Start: 07-18-2022 End: 07-18-[address] Sree Ash Work Phone: [facility] Start: 07-17-2022 End: 07-17-[address] Sree Ash Work Phone: [facility] Start: 05-10-2022 End: 05-10-[address] Clarke Roberts [facility] Start: 05-01-2022 End: 05-01-[address] Clarke Roberts [facility] Start: 04-16-2022 End: 04-16-[address] [facility] Start: 04-16-2022 End: 04-16-[address] Sree Ash Work Phone: [facility] Start: 04-13-2022 End: 04-13-[address] Sree Ash Work Phone: [facility]-Cardiovascular Services Start: 03-29-2022 End: 03-29-[address] Sree Ash Work Phone: [facility]-Physical Therapy Start: 03-29-[address] Sree akhtar Work Phone: [facility] Start: 02-10-2022 End: 02-23-2022 Evaluation and management of inpatient Dr. Sree Ash Work Phone: [facility]-Transitional Care Unit Start: 02-08-2022 End: 02-10-2022 Evaluation and management of inpatient Dr. Sree Ash Work Phone: [facility]-Medical Surgical 3 Start: 02-05-2022 End: 02-05-[address] Sree Ash Work Phone: [facility]-Radiology, [facility] Start: 01-26-2022 Non-patient / Non-visit Dr. Chase Ash Work Phone: [facility] Start: 01-24-2022 End: 01-24-[address] Sree Ash Work Phone: [facility] Start: 01-15-2022 End: 01-15-[address] [facility]ree [facility] Start: 01-03-2022 End: 01-03-[address] Sree Ash Work Phone: [facility] Start: 12-21-2021 End: 12-21-[address] Sree [facility] Start: 11-15-2021 Non-patient / Non-visit Dr. Chase Ash Work Phone: [facility] Start: 11-15-[address] Sree [facility] Start: 11-09-[address] Sree Ash Work Phone: [facility], y Office 3rd Flr Start: 11-06-2021 End: 11-06-[address] Sree Ash Work Phone: [facility] Start: 10-26-[address] [facility]ree [facility] Date Procedure Procedure Detail Performing Clinician Start: 04-23-2025 Computed tomography of abdomen and pelvis with contrast Dr. Helen Lainez MD Work Phone: Start: 03-15-[address] Helen Lainez MD Work Phone: Start: 02-10-[address] Helen Lainez MD Work Phone: Start: 11-11-2024 CT of head without contrast Dr. Helen Lainez MD Work Phone: Start: 10-15-[address] Helen Lainez MD Work Phone: Start: 10-15-[address] Helen Lainez MD Work Phone: Start: 10-15-2024 Ova [place] parasites identification Dr. Helen Lainez MD Work Phone: Start: 10-13-2024 Plain X-ray abdomen Dr. Helen Lainez MD Work Phone: Start: 03-27-2024 ICD CLINIC CHECK Marco Jaime MD Work Phone: Start: 03-26-2024 Antibody screen MARCO JAIME Comment on above: Order Comment: Specimen Type: BLOOD SPEC IMENOrdering Facility: [facility] Address: [address] [place] [address] Performed By: #### T SCR ####[facility] [id number] [address] [place] Start: 03-18-2024 Ecg routine ecg w/least 12 lds w/i&r Denice Marrufo APRN.CNP Work Phone: Start: 02-28-2024 Radiologic examination of knee Dr. Sree Ash Work Phone: Start: 02-07-2024 Plain chest X-ray Dr. Sree Ash Work Phone: Start: 10-29-2023 X-ray of lumbosacral spine Dr. Sree Ash Work Phone: Start: 09-30-2023 Ecg routine ecg w/least 12 lds w/i&r Marco Jaime MD Work Phone: Start: 08-09-2023 CT angiography of chest with contrast Dr. Sree Ash Work Phone: Start: 07-02-2023 Plain x-ray of wrist Dr. Sree Ash Work Phone: Start: 11-05-2022 Plain chest X-ray Dr. Sree Ash Work Phone: Start: 10-22-2022 CT of head without contrast Dr. Sree Ash Work Phone: Start: 09-26-2022 Computed tomography of abdomen and pelvis with contrast Dr. Sree Ash Work Phone: Start: 07-20-2022 CT angiography of chest with contrast Dr. Sree Ash Work Phone: Start: 02-22-2022 End: 02-22-[address] Sree Ash Work Phone: Start: 02-17-2022 End: 02-17-[address] Sree Ash Work Phone: Start: 02-10-2022 End: 02-10-[address] Sree Ash Work Phone: Start: 02-05-2022 Diagnostic radiography of abdomen, decubitus and erect Dr. Sree Ash Work Phone: Start: 01-26-2022 Nasal Screen MRSA/MSSA Dr. Sree Ash Work Phone: Start: 01-26-2022 Plain chest X-ray Dr. Sree Ash Work Phone: Start: 01-24-2022 MRI of lower extremity Dr. Sree Ash Work Phone: Start: 11-15-2021 Nuclear Stress Test - Chemical Dr. Sree Ash Work Phone: Clostridium difficil e detection Dr. Sree Ash Work Phone: Enteric Bacteriology Dr. Sree Ash Work Phone: History of operative procedure on knee History of arthroplasty of knee Dr. Sree Ash Work Phone: Influenza Types A,B Direct FA (WIL) Dr. Sree Ash Work Phone: Lactoferrin measurement Dr. Sree Ash Work Phone: Measurement of occul t blood in stool specimen using immunoassay Dr. Sree Ash Work Phone: Nasal Screen MRSA/MSSA Dr. Carlin Roberts Work Phone: [facility] parasites identification [facility] OR parasites identification Dr. Sree Ash Work Phone: Respiratory syncytia l virus antigen assay Dr. Sree Ash Work Phone: Urine culture Dr. Sree Ash Work Phone: Urine culture Dr. Sree Ash Work Phone: Viral antigen assay Dr. Mary Roberts Work Phone: Plan of Treatment Date Care Activity Detail Author Start: 11-07-2030 Urine microalbumin profile DTaP,Tdap,Td Vaccine (2 - Td or Tdap) [facility] Start: 03-26-2027 Diabetes Screening Diabetes Screening [facility] Start: 11-12-2026 Diabetes Screening Diabetes Screening [facility] Start: 02-10-2025 Colonoscopy w/biopsy single/multiple COLONOSCOPY AND BIOPSY [facility] Start: 02-10-2025 Patient discharge [facility] Start: 01-26-2025 [facility] Start: 11-11-2024 [facility] Start: 04-03-2024 End: 04-03-2024 ambulatory 04/03/2024 11:00 AM EDT [facility] [address] [place] [address] Wound Check - [phone] [facility] Comment on above: Wound Check - [phone] Start: 03-26-2024 End: 03-26-2024 Admission [facility] Comment on above: REMOVAL ELECTRODE(S) IMPLANTABLE DEFIBRI LLATOR TRANSVENOUS EXTRACTION Start: 03-26-2024 End: 03-26-2024 Rmvl1/dual chmbr impltbl dfb eltrd transvns xtrj [place] Start: 03-26-2024 Subsequent hospital visit by physician 03/26/2024 7:00 AM EDT Hospital Encounter [place] [facility] [place] [address] [facility] [place] [address] Marco Jaime MD [address] [place] [address] Implanted defibrillator electrode lead fracture, initial encounter [T82.190A] [facility] Comment on above: Implanted defibrillator electrode lead f edilberto, initial encounter [T82.190A] Start: 02-28-2024 [facility] Start: 02-07-2024 End: 02-07-2024 [facility] Start: 01-09-2024 Covid-19 Vaccine () Covid-19 Vaccine () [facility] Start: 11-25-2023 Advance Directive Discussion Advance Directive Discussion [facility] Start: 11-25-2023 Behavioral Health Screening Behavioral Health Screening [facility] Start: 11-25-2023 Depression Assessment Depression Assessment [facility] Start: 07-26-2023 Influenza vaccination Influenza Vaccine (#1) [facility] Start: 11-25-2022 Advance Directive Discussion Advance Directive Discussion [facility] Start: 11-25-2022 Depression Assessment Depression Assessment [facility] Start: 11-06-2022 Electrocardiographic procedure [facility] Work Phone: Start: 10-02-2022 Diabetes Screening Diabetes Screening [facility] Start: 02-24-2022 Development of care plan [facility] Work Phone: Start: 02-23-2022 Patient discharge [facility] Work Phone: Start: 02-15-2022 [facility] Work Phone: Start: 02-11-2022 Development of care plan [facility] Work Phone: Start: 02-10-2022 Wound care [facility] Work Phone: Start: 02-10-2022 Admission procedure [facility] Work Phone: Start: 02-10-2022 Measuring intake and output [facility] Work Phone: Start: 02-10-2022 Patient referral to dietitian [facility] Work Phone: Start: 02-10-2022 Referral to occupational therapist [facility] Work Phone: Start: 02-10-2022 Referral to service [facility] Work Phone: Start: 02-10-2022 Vital signs measurements [facility] Work Phone: Start: 02-10-2022 End: 02-10-2022 [facility] Work Phone: Start: 02-10-2022 Patient discharge [facility] Work Phone: Start: 02-10-2022 Application of antithromboembolic stockings [facility] Work Phone: Start: 02-10-2022 Application of device [facility] Work Phone: Start: 02-08-2022 Anesth open/surg arthrs total knee arthroplasty ANESTH KNEE ARTHROPLASTY [facility] Work Phone: Start: 02-08-2022 Arthrp kne condyle&platu medial&lat compartments TOTAL KNEE ARTHROPLASTY [facility] Work Phone: Start: 02-08-2022 Injection aa&/strd femoral nerve NJX AA&/STRD FEMORAL NERVE [facility] Work Phone: Start: 02-08-2022 Catheterization of vein [facility] Work Phone: Start: 02-08-2022 Referral to service [facility] Work Phone: Start: 02-08-2022 Following clinical pathway protocol [facility] Work Phone: Start: 02-08-2022 Provision of overbed trapeze [facility] Work Phone: Start: 02-08-2022 Admission procedure [facility] Work Phone: Start: 02-08-2022 Ambulation therapy management [facility] Work Phone: Start: 02-08-2022 Application of antithromboembolic stockings [facility] Work Phone: Start: 02-08-2022 Application of device [facility] Work Phone: Start: 02-08-2022 Application of elastic bandage [facility] Work Phone: Start: 02-08-2022 Application of intermittent pneumatic compression device [facility] Work Phone: Start: 02-08-2022 Assessment of risk of venous thromboembolism [facility] Work Phone: Start: 02-08-2022 Catheterization of vein [facility] Work Phone: Start: 02-08-2022 Exercises [facility] Work Phone: Start: 02-08-2022 Following clinical pathway protocol [facility] Work Phone: Start: 02-08-2022 Incentive spirometry [facility] Work Phone: Start: 02-08-2022 Introduction of urinary catheter [facility] Work Phone: Start: 02-08-2022 Measuring intake and output [facility] Work Phone: Start: 02-08-2022 Neurovascular assessment [facility] Work Phone: Start: 02-08-2022 Patient education [facility] Work Phone: Start: 02-08-2022 Procedure discontinued [facility] Work Phone: Start: 02-08-2022 Provision of activity privileges [facility] Work Phone: Start: 02-08-2022 Referral to occupational therapist [facility] Work Phone: Start: 02-08-2022 Referral to service [facility] Work Phone: Start: 02-08-2022 Vital signs measurements [facility] Work Phone: Start: 02-08-2022 Wound care [facility] Work Phone: Start: 02-08-2022 [facility] Work Phone: Start: 2010 Pneumococcal Vaccine: 65+ (1 - PCV) Pneumococcal Vaccine: 65+ (1 - PCV) [facility] Start: 2005 RSV Vaccine (1 - 1-dose 60+ series) RSV Vaccine (1 - 1-dose 60+ series) [facility] Start: 1995 Shingrix Vaccine (1 of 2) Shingrix Vaccine (1 of 2) [facility] Start: 1964 Urine microalbumin profile DTaP,Tdap,Td Vaccine (1 - Tdap) [facility] Start: 1963 Hepatitis C Screening Hepatitis C Screening [facility] Start: 1963 Hepatitis C screening Hepatitis C Screening [facility] Start: 02-15-1946 Covid-19 Vaccine (#1) Covid-19 Vaccine (#1) [facility] C reactive protein [Mass/volume] in Serum or Plasma [facility] CBC W Auto Different ial panel - Blood [facility] Clostridioides diffi cile DNA [Presence] in Unspecified specimen by CHRISTIAN with probe detection [facility] Colonoscopy [facility] CT Abdomen and Pelvi s W contrast IV [facility] CTA Chest vessels WO and W contrast IV [facility] Electrocardiographic procedure [facility] Work Phone: Giardia lamblia Ag [ Presence] in Stool by Immunoassay [facility] IgA [Mass/volume] in Serum or Plasma [facility] Nucleic acid assay [facility] Ova and parasites id entified in Unspecified specimen by Light microscopy [facility] Work Phone: Ova OR parasites identification [facility] Patient Education [facility] Work Phone: Patient referral [facility] Work Phone: Protein measurement [facility] Prothrombin time [facility] Work Phone: T4 free measurement [facility] Thyroid stimulating hormone measurement [facility] Tissue transglutamin ase IgA Ab [Units/volume] in Serum [facility] Triiodothyronine, fr ee measurement [facility] US Heart limited [facility] XR Unspecified body region Views [facility] [place] [facility] [place] [facility] Immunizations Immunization Date Immunization Notes Care Provider Fa cility 11-09-2021 pneumococcal polysaccharide vaccine, [address] Sree Ash Work Phone: [facility] 09-16-2021 Covid (Pfizer) Dr. Sree Ash Work Phone: [facility] 07-31-2021 Influenza, high dose seasonal Dr. Helen Lainez MD Work Phone: [facility] 07-31-2021 influenza, high dose seasonal, preservative-free Dr. Sree Ash Work Phone: [facility] 03-13-2021 Covid (Pfizer) Dr. Sree Ash Work Phone: [facility] 02-20-2021 Covid (Pfizer) Dr. Sree Ash Work Phone: [facility] 11-07-2020 pneumococcal conjuga te vaccine, [address] Sree Ash Work Phone: [facility] Payers Date Payer Category Payer Unknown [id number] 2024 Medicare [id number] 2024 Self-pay [id number] 2021 Unknown [id number] 2021 Unknown MMO MMO MEDICARE SUPPLEMENT [id number] 2021-Present [phone] [address] [place] [address] Indemnity [id number] 2010 Medicare [id number] 2010 Medicare MEDICARE MEDICAR E A AND B [id number] 2010-Present [phone] [facility] [address] [place] [address] Medicare [id number] Unknown [id number] Unknown [id number] 2.16.840.1.775005.3.579.2.462 Unknown [id number] 2.16.840.1.094620.3.579.2.462 Unknown [id number] 2.16.840.1.007122.3.579.2.462 Unknown [id number] 2.16.840.1.631568.3.579.2.462 Unknown [id number] 2.16.840.1.210099.3.579.2.462 Unknown [id number] 2.16.840.1.243850.3.579.2.462 Unknown [id number] 2.16.840.1.318653.3.579.2.462 Unknown [id number] 2.16.840.1.417649.3.579.2.462 Unknown [id number] 2.16.840.1.890252.3.579.2.462 Unknown [id number] 2.16.840.1.526316.3.579.2.462 Unknown [id number] 2.16.840.1.662086.3.579.2.462 Unknown [id number] 2.16.840.1.872674.3.579.2.462 Unknown [id number] 2.16.840.1.655247.3.579.2.462 Unknown [id number] 2.16.840.1.383830.3.579.2.462 Unknown [id number] 2.16.840.1.888562.3.579.2.462 Unknown [id number] 2.16840.1.689441.3.579.2.462 Unknown [id number] 2.16.840.1.660991.3.579.2.462 Unknown [id number] 2.840.1.530504.3.579.2.462 Unknown [id number] 2.16840.1.946509.3.579.2.462 Unknown [id number] 2.840.1.736475.3.579.2.462 Unknown [id number] 2.840.1.994309.3.579.2.462 Unknown [id number] 2.840.1.496119.3.579.2.462 Unknown [id number] 2.840.1.911948.3.579.2.462 Unknown [id number] 2.840.1.851719.3.579.2.462 Unknown [id number] 2.840.1.237988.3.579.2.462 Unknown [id number] 2.840.1.073769.3.579.2.462 Unknown [id number] 2.840.1.096482.3.579.2.462 Unknown [id number] 2.840.1.559846.3.579.2.462 Unknown [id number] 2.840.1.136502.3.579.2.462 Unknown [id number] 2.840.1.897121.3.579.2.462 Unknown [id number] 2.840.1.150096.3.579.2.462 Unknown [id number] 2.840.1.200370.3.579.2.462 Unknown [id number] 2.840.1.214502.3.579.2.462 Social History Date Type Detail Facility Start: 02-10-2022 End: 02-28-2024 Tobacco smoking status UTIS Unknown if ever smoked [facility] Start: 09-27-2019 None [facility] Start: 09-27-2019 Spouse/ Signif icant Other [facility] Start: 09-25-2019 Cigarettes [facility] Start: 1945 Sex Assigned At Male [facility] Start: 01-12-2016 End: 04-13-2025 Tobacco smoking status NHIS Ex-smoker [facility] End: 11-25-2019 History of tobacco use Current smoker [facility] End: 11-25-2019 History of tobacco use Cigarette Smoker [facility] Start: 01-12-2016 End: 09-30-2023 Cigarettes smoked current (pack per day) - Reported 0.5 [facility] Start: 01-12-2016 End: 09-25-2023 Tobacco use and exposure Smokeless tobacco non-user [facility] Start: 07-08-2022 End: 03-26-2024 Alcohol intake Current non-drinker of alcohol (finding) [facility] Start: 09-30-2019 End: 09-30-2023 Tobacco use panel [facility] PHQ-2 Score 0 [facility] Start: 1945 Sex Assigned At Not on file C [facility] Start: 09-25-2023 Tobacco Comment less than a pack per day [facility] Start: 02-10-2025 End: 03-18-2025 Sex Male (finding) [facility] Medical Equipment Procedure Code Equipment Code Equipment Origin al Text Equipment Identifier Dates JAYESH LANG LG FDA Sta rt: 07-02-[address] art: 07-02-2018 [address]LYN MCKEON FDA St art: 07-02-2018 SEALANT,FLOSEAL HEMOSTATIC 5ML FDA Start: 07-02-2018 CEMENT,BONE JASMYNE H 1/2 BATCH FDA Start: 02-08-2022 ([id number]) Uncoated knee fe mur prosthesis, metallic ([id number] FDA Start: 02-08-2022 ([id number]) Uncoated knee ti scot prosthesis, metallic ()[id number] FDA Start: 02-08-2022 Orthopaedic ceme nt, non-antimicrobial ()[id number] FDA Start: 02-08-2022 Orthopaedic ceme nt, non-antimicrobial ()[id number] FDA Start: 02-08-2022 ([id number]) Polyethylene pat tai prosthesis ()[id number] FDA Start: 02-08-2022 ([id number]) Tibial insert ()[id number] FDA Start: 02-08-2022 JAYESH LANG [facility] Sta rt: 07-02-2018 PRECIOUSD.light DesignROSELYN Lore FDA St art: 07-02-2018 PRECIOUS,[facility] [facility] St art: 07-02-2018 SEALANT,FLOSEAL HEMOSTATIC 5ML FDA Start: 07-02-2018 CEMENT,BONE JASMYNE H 1/2 BATCH FDA Start: 02-08-2022 JAYESH LANG [facility] [facility] Sta rt: 07-02-2018 [address] FDA St art: 07-02-2018 [employer] FDA St art: 07-02-2018 SEALANT,FLOSEAL HEMOSTATIC 5ML FDA Start: 07-02-2018 CEMENT,BONE JASMYNE H 1/2 BATCH FDA Start: 02-08-2022 PRECIOUSD.light DesignROSELYN [employer]ats[employer] FDA Sta rt: 07-02-2018 PRECIOUSD.light DesignROSELYN Lore FDA St art: 07-02-[address] art: 07-02-2018 SEALANT,FLOSEAL HEMOSTATIC 5ML FDA Start: 07-02-2018 CEMENT,BONE JASMYNE H 1/2 BATCH FDA Start: 02-08-2022 PRECIOUSD.light DesignROSELYN [employer] FDA Sta rt: 07-02-2018 PRECIOUSiNovo [employer] FDA St art: 07-02-2018 CLIP,iNovo Broadband FDA St art: 07-02-2018 SEALANT,FLOSEAL HEMOSTATIC 5ML FDA Start: 07-02-2018 CEMENT,BONE JASMYNE H 1/2 BATCH FDA Start: 02-08-2022 CLIP,JAYESH DUDLEY FDA Sta rt: 07-02-2018 CLIP,HEMROSELYN DUDLEY FDA St art: 07-02-2018 CLIP,HEMROSELYN DUDLEY FDA St art: 07-02-2018 SEALANT,FLOSEAL HEMOSTATIC 5ML FDA Start: 07-02-2018 CEMENT,BONE JASMYNE H 1/2 BATCH FDA Start: 02-08-2022 CLIP,JAYESH MONSALVE [facility] FDA Sta rt: 07-02-2018 CLIP,HEMROSELYN DUDLEY FDA St art: 07-02-2018 CLIP,HEMROSELYN DUDLEY FDA St art: 07-02-2018 SEALANT,FLOSEAL HEMOSTATIC 5ML FDA Start: 07-02-2018 CEMENT,BONE JASMYNE H 1/2 BATCH FDA Start: 02-08-2022 CLIP,JAYESH MONSALVE [facility] FDA Sta rt: 07-02-2018 CLIP,HEMROSELYN DUDLEY FDA St art: 07-02-2018 CLIP,HEMROSELYN DUDLEY FDA St art: 07-02-2018 SEALANT,FLOSEAL HEMOSTATIC 5ML FDA Start: 07-02-2018 CEMENT,BONE JASMYNE H 1/2 BATCH FDA Start: 02-08-2022 CLIP,JAYESH MONSALVE [facility] FDA Sta rt: 07-02-2018 CLIP,HEMROSELYN DUDLEY FDA St art: 07-02-2018 CLIP,HEMROSELYN DUDLEY FDA St art: 07-02-2018 SEALANT,FLOSEAL HEMOSTATIC 5ML FDA Start: 07-02-2018 CEMENT,BONE JASMYNE H 1/2 BATCH FDA Start: 02-08-2022 CLIP,JAYESH MONSALVE [facility] FDA Sta rt: 07-02-2018 CLIP,HEMROSELYN DUDLEY FDA St art: 07-02-2018 CLIP,HEMROSELYN SOTO [facility] FDA St art: 07-02-2018 SEALANT,FLOSEAL HEMOSTATIC 5ML FDA Start: 07-02-2018 CEMENT,BONE JASMYNE H 1/2 BATCH FDA Start: 02-08-2022 CLIP,JAYESH MONSALVE [facility] FDA Sta rt: 07-02-2018 CLIP,HEMROSELYN SOTO [facility] FDA St art: 07-02-2018 CLIP,HEMROSELYN SOTO [facility] FDA St art: 07-02-2018 SEALANT,FLOSEAL HEMOSTATIC 5ML FDA Start: 07-02-2018 CEMENT,BONE JASMYNE H 1/2 BATCH FDA Start: 02-08-2022 CLIP,JAYESH MONSALVE [facility] FDA Sta rt: 07-02-2018 CLIP,HEMROSELYN SOTO [facility] FDA St art: 07-02-2018 CLIP,HEMROSELYN SOTO [facility] FDA St art: 07-02-2018 SEALANT,FLOSEAL HEMOSTATIC 5ML FDA Start: 07-02-2018 CEMENT,BONE JASMYNE H 1/2 BATCH FDA Start: 02-08-2022 CLIP,JAYESH MONSALVE [facility] FDA Sta rt: 07-02-2018 CLIP,HEMROSELYN SOTO [facility] FDA St art: 07-02-2018 CLIP,HEMROSELYN SOTO [facility] FDA St art: 07-02-2018 SEALANT,FLOSEAL HEMOSTATIC 5ML FDA Start: 07-02-2018 CEMENT,BONE JASMYNE H 1/2 BATCH FDA Start: 02-08-2022 CLIP,JAYESH MONSALVE [facility] FDA Sta rt: 07-02-2018 CLIP,HEMROSELYN SOTO [facility] FDA St art: 07-02-2018 CLIP,HEMROSELYN SOTO [facility] FDA St art: 07-02-2018 SEALANT,FLOSEAL HEMOSTATIC 5ML FDA Start: 07-02-2018 CEMENT,BONE JASMYNE H 1/2 BATCH FDA Start: 02-08-2022 CLIP,JAYESH [facility] FDA Sta rt: 07-02-2018 CLIP,HEMROSELYN SOTO [facility] FDA St art: 07-02-2018 CLIP,HEMROSELYN SOTO [facility] FDA St art: 07-02-2018 SEALANT,FLOSEAL HEMOSTATIC 5ML FDA Start: 07-02-2018 CEMENT,BONE JASMYNE H 1/2 BATCH FDA Start: 02-08-2022 CLIP,HEMROSELYN MONSALVE [facility] FDA Sta rt: 07-02-2018 CLIP,HEMROSELYN SOTO [facility] FDA St art: 07-02-2018 CLIP,HEMROSELYN SOTO [facility] FDA St art: 07-02-2018 SEALANT,FLOSEAL HEMOSTATIC 5ML FDA Start: 07-02-2018 CEMENT,BONE JASMYNE H 1/2 BATCH FDA Start: 02-08-2022 CLIP,JAYESH MONSALVE [facility] FDA Sta rt: 07-02-2018 CLIP,JAYESH DUDLEY FDA St art: 07-02-2018 CLIP,HEMROSELYN DUDLEY FDA St art: 07-02-2018 SEALANT,FLOSEAL HEMOSTATIC 5ML FDA Start: 07-02-2018 CEMENT,BONE JASMYNE H 1/2 BATCH FDA Start: 02-08-2022 CLIP,JAYESH MONSALVE [facility] FDA Sta rt: 07-02-2018 CLIP,HEMROSELYN SOTO [facility] FDA St art: 07-02-2018 CLIP,HEMROSELYN SOTO [facility] FDA St art: 07-02-2018 SEALANT,FLOSEAL HEMOSTATIC 5ML FDA Start: 07-02-2018 CEMENT,BONE JASMYNE H 1/2 BATCH FDA Start: 02-08-2022 CLIP,JAYESH MONSALVE [facility] FDA Sta rt: 07-02-2018 CLIP,HEMROSELYN OSTO [facility] FDA St art: 07-02-2018 CLIP,HEMROSELYN SOTO [facility] FDA St art: 07-02-2018 SEALANT,FLOSEAL HEMOSTATIC 5ML FDA Start: 07-02-2018 CEMENT,BONE JASMYNE H 1/2 BATCH FDA Start: 02-08-2022 CLIP,JAYESH MONSALVE [employer] FDA Sta rt: 07-02-2018 CLIP,JAYESH SOTO [employer] FDA St art: 07-02-2018 CLIP,JAYESH DUDLEY FDA St art: 07-02-2018 SEALANT,FLOSEAL HEMOSTATIC 5ML FDA Start: 07-02-2018 CEMENT,BONE JASMYNE H 1/2 BATCH FDA Start: 02-08-2022 CLIPJAYESH LG [facility] FDA Sta rt: 07-02-2018 CLIP,HEMROSELYN SOTO [facility] FDA St art: 07-02-2018 CLIP,HEMROSELYN SOTO [facility] FDA St art: 07-02-2018 SEALANT,FLOSEAL HEMOSTATIC 5ML FDA Start: 07-02-2018 CEMENT,BONE JASMYNE H 1/2 BATCH FDA Start: 02-08-2022 CLIP,JAYESH MONSALVE [employer] FDA Sta rt: 07-02-2018 CLIP,HEMROSELYN SOTO [facility] FDA St art: 07-02-2018 CLIP,HEMROSELYN SOTO [facility] FDA St art: 07-02-2018 SEALANT,FLOSEAL HEMOSTATIC 5ML FDA Start: 07-02-2018 CEMENT,BONE JASMYNE H 1/2 BATCH FDA Start: 02-08-2022 CLIPJAYESH LG FDA Sta rt: 07-02-2018 CLIP,JAYESH DUDLEY FDA St art: 07-02-2018 CLIP,JAYESH DUDLEY FDA St art: 07-02-2018 SEALANT,FLOSEAL HEMOSTATIC 5ML FDA Start: 07-02-2018 CEMENT,BONE JASMYNE H 1/2 BATCH FDA Start: 02-08-2022 CLIP,JAYESH MONSALVE [facility] FDA Sta rt: 07-02-2018 CLIP,JAYESH SOTO [facility] FDA St art: 07-02-2018 CLIP,HEMROSELYN SOTO [facility] FDA St art: 07-02-2018 SEALANT,FLOSEAL HEMOSTATIC 5ML FDA Start: 07-02-2018 CEMENT,BONE JASMYNE H 1/2 BATCH FDA Start: 02-08-2022 CLIP,JAYESH MONSALVE [facility] FDA Sta rt: 07-02-2018 CLIP,JAYESH SOTO [facility] FDA St art: 07-02-2018 CLIP,JAYESH SOTO [facility] FDA St art: 07-02-2018 SEALANT,FLOSEAL HEMOSTATIC 5ML FDA Start: 07-02-2018 CEMENT,BONE JASMYNE H 1/2 BATCH FDA Start: 02-08-2022 CLIP,JAYESH MONSALVE [employer] FDA Sta rt: 07-02-2018 CLIP,JAYESH SOTO [facility] FDA St art: 07-02-2018 CLIP,JAYESH SOTO [facility] FDA St art: 07-02-2018 SEALANT,FLOSEAL HEMOSTATIC 5ML FDA Start: 07-02-2018 CEMENT,BONE JASMYNE H 1/2 BATCH FDA Start: 02-08-2022 CLIP,JAYESH MONSALVE [facility] FDA Sta rt: 07-02-2018 CLIP,JAYESH SOTO [facility] FDA St art: 07-02-2018 CLIP,HEMROSELYN SOTO [facility] FDA St art: 07-02-2018 SEALANT,FLOSEAL HEMOSTATIC 5ML FDA Start: 07-02-2018 CEMENT,BONE JASMYNE H 1/2 BATCH FDA Start: 02-08-2022 CLIP,JAYESH MONSALVE [facility] FDA Sta rt: 07-02-2018 CLIP,JAYESH SOTO [facility] FDA St art: 07-02-2018 CLIP,HEMROSELYN SOTO [facility] FDA St art: 07-02-2018 SEALANT,FLOSEAL HEMOSTATIC 5ML FDA Start: 07-02-2018 CEMENT,BONE JASMYNE H 1/2 BATCH FDA Start: 02-08-2022 CLIPJAYESH LG FDA Sta rt: 07-02-2018 CLIP,HEMROSELYN SOTO [facility] FDA St art: 07-02-2018 CLIP,HEMROSELYN SOTO [facility] FDA St art: 07-02-2018 SEALANT,FLOSEAL HEMOSTATIC 5ML FDA Start: 07-02-2018 CEMENT,BONE JASMYNE H 1/2 BATCH FDA Start: 02-08-2022 CLIP,JAYESH [facility] FDA Sta rt: 07-02-2018 CLIP,HEMROSELYN SOTO [facility] FDA St art: 07-02-2018 CLIP,HEMROSELYN SOTO [facility] FDA St art: 07-02-2018 SEALANT,FLOSEAL HEMOSTATIC 5ML FDA Start: 07-02-2018 CEMENT,BONE JASMYNE H 1/2 BATCH FDA Start: 02-08-2022 CLIP,JAYESH [facility] FDA Sta rt: 07-02-2018 CLIP,JAYESH SOTO [facility] FDA St art: 07-02-2018 CLIP,HEMROSELYN SOTO [facility] FDA St art: 07-02-2018 SEALANT,FLOSEAL HEMOSTATIC 5ML FDA Start: 07-02-2018 CEMENT,BONE JASMYNE H 1/2 BATCH FDA Start: 02-08-2022 CLIP,JAYESH [facility] FDA Sta rt: 07-02-2018 CLIP,HEMROSELYN SOTO [facility] FDA St art: 07-02-2018 CLIP,HEMROSELYN SOTO [facility] FDA St art: 07-02-2018 SEALANT,FLOSEAL HEMOSTATIC 5ML FDA Start: 07-02-2018 CEMENT,BONE JASMYNE H 1/2 BATCH FDA Start: 02-08-2022 CLIP,JAYESH [facility] FDA Sta rt: 07-02-2018 CLIP,HEMROSELYN SOTO [facility] FDA St art: 07-02-2018 CLIP,HEMROSELYN SOTO [facility] FDA St art: 07-02-2018 SEALANT,FLOSEAL HEMOSTATIC 5ML FDA Start: 07-02-2018 CEMENT,BONE JASMYNE H 1/2 BATCH FDA Start: 02-08-2022 CLIP,JAYESH [facility] FDA Sta rt: 07-02-2018 CLIP,HEMROSELYN SOTO [facility] FDA St art: 07-02-2018 CLIP,HEMROSELYN [facility] FDA St art: 07-02-2018 SEALANT,FLOSEAL HEMOSTATIC 5ML FDA Start: 07-02-2018 CEMENT,BONE JASMYNE H 1/2 BATCH FDA Start: 02-08-2022 CLIP,JAYESH MONSALVE [facility] FDA Sta rt: 07-02-2018 CLIP,HEMROSELYN SOTO [facility] FDA St art: 07-02-2018 CLIP,HEMROSELYN SOTO [facility] FDA St art: 07-02-2018 SEALANT,FLOSEAL HEMOSTATIC 5ML FDA Start: 07-02-2018 CEMENT,BONE JASMYNE H 1/2 BATCH FDA Start: 02-08-2022 CLIP,JAYESH MONSALVE [facility] FDA Sta rt: 07-02-2018 CLIP,HEMROSELYN SOTO [facility] FDA St art: 07-02-2018 CLIP,HEMROSELYN SOTO [facility] FDA St art: 07-02-2018 SEALANT,FLOSEAL HEMOSTATIC 5ML FDA Start: 07-02-2018 CEMENT,BONE JASMYNE H 1/2 BATCH FDA Start: 02-08-2022 CLIP,JAYESH MONSALVE [facility] FDA Sta rt: 07-02-2018 CLIP,JAYESH SOTO [facility] FDA St art: 07-02-2018 CLIP,HEMROSELYN SOTO [facility] FDA St art: 07-02-2018 SEALANT,FLOSEAL HEMOSTATIC 5ML FDA Start: 07-02-2018 CEMENT,BONE JASMYNE H 1/2 BATCH FDA Start: 02-08-2022 CLIP,JAYSEH MONSALVE [facility] FDA Sta rt: 07-02-2018 CLIP,JAYESH SOTO [facility] FDA St art: 07-02-2018 CLIP,HEMROSELYN SOTO [facility] FDA St art: 07-02-2018 SEALANT,FLOSEAL HEMOSTATIC 5ML FDA Start: 07-02-2018 CEMENT,BONE JASMYNE H 1/2 BATCH FDA Start: 02-08-2022 CLIP,JAYESH [facility] FDA Sta rt: 07-02-2018 CLIP,HEMROSELYN SOTO [facility] FDA St art: 07-02-2018 CLIP,HEMROSELYN STOO [facility] FDA St art: 07-02-2018 SEALANT,FLOSEAL HEMOSTATIC 5ML FDA Start: 07-02-2018 CEMENT,BONE JASMYNE H 1/2 BATCH FDA Start: 02-08-2022 CLIP,JAYESH [facility] FDA Sta rt: 07-02-2018 CLIP,HEMROSELYN SOTO [facility] FDA St art: 07-02-2018 CLIP,JAYESH SOTO [facility] FDA St art: 07-02-2018 SEALANT,FLOSEAL HEMOSTATIC 5ML FDA Start: 07-02-2018 CEMENT,BONE JASMYNE H 1/2 BATCH FDA Start: 02-08-2022 CLIP,JAYESH MONSALVE [facility] FDA Sta rt: 07-02-2018 CLIP,HEMROSELYN SOTO [facility] FDA St art: 07-02-2018 CLIP,HEMROSELYN SOTO [facility] FDA St art: 07-02-2018 SEALANT,FLOSEAL HEMOSTATIC 5ML FDA Start: 07-02-2018 CEMENT,BONE JASMYNE H 1/2 BATCH FDA Start: 02-08-2022 CLIP,HEMROSELYN MONSALVE [facility] FDA Sta rt: 07-02-2018 CLIP,HEMROSELYN SOTO [facility] FDA St art: 07-02-2018 CLIP,HEMROSELYN SOTO [facility] FDA St art: 07-02-2018 SEALANT,FLOSEAL HEMOSTATIC 5ML FDA Start: 07-02-2018 CEMENT,BONE JASMYNE H 1/2 BATCH FDA Start: 02-08-2022 CLIP,JAYESH MONSALVE [facility] FDA Sta rt: 07-02-2018 CLIP,HEMROSELYN SOTO [facility] FDA St art: 07-02-2018 CLIP,HEMROSELYN SOTO [facility] FDA St art: 07-02-2018 SEALANT,FLOSEAL HEMOSTATIC 5ML FDA Start: 07-02-2018 CEMENT,BONE JASMYNE H 1/2 BATCH FDA Start: 02-08-2022 CLIP,HEMROSELYN MONSALVE [facility] FDA Sta rt: 07-02-2018 CLIP,JAYESH SOTO [facility] FDA St art: 07-02-2018 CLIP,HEMROSELYN SOTO [facility] FDA St art: 07-02-2018 SEALANT,FLOSEAL HEMOSTATIC 5ML FDA Start: 07-02-2018 CEMENT,BONE JASMYNE H 1/2 BATCH FDA Start: 02-08-2022 CLIP,HEMROSELYN MONSALVE [facility] FDA Sta rt: 07-02-2018 CLIP,HEMROSELYN SOTO [facility] FDA St art: 07-02-2018 CLIP,HEMROSELYN SOTO [facility] FDA St art: 07-02-2018 SEALANT,FLOSEAL HEMOSTATIC 5ML FDA Start: 07-02-2018 CEMENT,BONE JASMYNE H 1/2 BATCH FDA Start: 02-08-2022 CLIP,HEMROSELYN [facility] FDA Sta rt: 07-02-2018 CLIP,JAYESH SOTO [employer] FDA St art: 07-02-2018 CLIP,JAYESH MCKEON FDA St art: 07-02-2018 SEALANT,FLOSEAL HEMOSTATIC 5ML FDA Start: 07-02-2018 CEMENT,BONE JASMYNE H 1/2 BATCH FDA Start: 02-08-2022 JAYESH LANG LG [employer] FDA Sta rt: 07-02-2018 CLIP,JAYESH SOTO [employer] FDA St art: 07-02-2018 CLIP,HEMROSELYN SOTO [employer] FDA St art: 07-02-2018 SEALANT,FLOSEAL HEMOSTATIC 5ML FDA Start: 07-02-2018 CEMENT,BONE JASMYNE H 1/2 BATCH FDA Start: 02-08-2022 JAYESH LANG LG [employer] FDA Sta rt: 07-02-2018 CLIP,HEMROSELYN SOTO [employer] FDA St art: 07-02-2018 CLIP,HEMROSELYN SOTO [employer] FDA St art: 07-02-2018 SEALANT,FLOSEAL HEMOSTATIC 5ML FDA Start: 07-02-2018 CEMENT,BONE JASMYNE H 1/2 BATCH FDA Start: 02-08-2022 JAYESH LANG [employer] FDA Sta rt: 07-02-2018 CLIP,JAYESH SOTO [employer] FDA St art: 07-02-2018 CLIP,HEMROSELYN SOTO [employer] FDA St art: 07-02-2018 SEALANT,FLOSEAL HEMOSTATIC 5ML FDA Start: 07-02-2018 CEMENT,BONE JASMYNE H 1/2 BATCH FDA Start: 02-08-2022 JAYESH LANG LG [employer] FDA Sta rt: 07-02-2018 CLIP,JAYESH SOTO [employer] FDA St art: 07-02-2018 CLIP,HEMROSELYN SOTO [employer] FDA St art: 07-02-2018 SEALANT,FLOSEAL HEMOSTATIC 5ML FDA Start: 07-02-2018 CEMENT,BONE JASMYNE H 1/2 BATCH FDA Start: 02-08-2022 Goals Date Patient Goal Desired Activity /State Personal health goal Functional Status Date Assessment Result Facility 02-23-2022 Functional status Activity Ability [facility] Work Phone: 02-20-2022 Functional status Activity Ability [facility] Work Phone: 02-14-2022 Functional status Assistive Marivel catherine Rolling Walker [facility] Work Phone: 02-10-2022 Functional status [facility] Work Phone: Mental Status Date Assessment Result Facility 02-10-2025 Cognitive function Voice/Name [facility] Work Phone: 02-07-2024 Cognitive function Level Of Cons ciousness Awake;Alert;Appropriate;Follow s Commands [facility] Work Phone: 11-05-2022 Cognitive function Voice/Name [facility] Work Phone: 02-23-2022 Cognitive function Voice/Name [facility] Work Phone: 02-20-2022 Cognitive function Voice/Name [facility] Work Phone: 02-14-2022 Cognitive function Comprehension Ability Demonstrates ability to follow instructions/comprehend [facility] Work Phone: 02-10-2022 Cognitive function Awake;Alert;A ppropriate;Follow s Commands [facility] Work Phone: 02-09-2022 Cognitive function Arousable To Voice/Nam e [facility] Work Phone: 02-09-2022 Cognitive function Appropriate;Cooperativ e [facility] Work Phone: Clinical Notes 12-19-2022 to 05-03-2025 Note Date & Type Note Facility 05-03-2025 Procedure note [facility] Services 04-24-2025 Radiology Diagnostic study note [facility] Imaging Services [address] [place], [place] [address] Abdomen/Pelvis WITH Contrast MR#: [id number] Acct: [id number] Name: BENITO WHITTINGTON Rep #: [id number] : 1945 M 79 From: Yolie Kimble MD PCP: Dr. Helen Lainez MD Status: REG CLI Study:Abdomen/Pelvis WITH Contrast Date of Ex am: 04/23/25 Exam# [id number] Ordering Dr: Yoko Blas PROCEDURE: ABDOMEN/PELVIS WITH CONTRAST 04/23/2025 REASON FOR EXAM: ABDOMINAL PAIN TECHNIQUE: Abdomen and pelvis CT with intravenous contrast. Coronal and Sagittal reconstruction series were provided. PATIENT PREPARATION: Per protocol ORAL CONTRAST TYPE: None. AMOUNT: mL CONTRAST: 100 mL of Isovue 370 One or more dose reduction techniques were used (e.g., Automated exposure control, adjustment of the mA and/or kV according to patient size, use of iterative reconstruction technique. RADIATION DOSE SUMMARY: DLP: 483 mGycm COMPARISON: FINDINGS: Stable reticular density within the right lower lobe, grossly unchanged measuring approximately 9.5 x 6.3 cm, which may reflect fibrosis versus spiculated lesion. The liver, spleen, pancreas, both kidneys, and both adrenal glands demonstrate no acute findings. The gallbladder is unremarkable. The stomach is distended with residue. Extensive atherosclerotic changes of the abdominal aorta with distal abdominal aorta measuring up to 2.2 cm. There is no free air, free fluid or intestinal obstruction. The appendix is not clearly identified, although there are no secondary signs ofappendicitis. Scattered small bowel and colonic inflammation may reflect enterocolitis. No bowel obstruction. Extensive colonic diverticulosis without acute diverticulitis. The pelvic structures are intact. Prostatomegaly to 5.1 cm in transverse dimension. Mild thickening of the urinary bladder wall which may reflect cystitis; considercorrelation with urinalysis. Extensive multilevel lumbar degenerative changes. No acute fractures. CT/Abdomen/Pelvis WITH Contrast IMPRESSION: Scattered small bowel and colonic inflammation may reflect enterocolitis. No bowel obstruction. Extensive colonic diverticulosis without acute diverticulitis. Mild thickening of the urinary bladder wall which may reflect cystitis; considercorrelation with urinalysis. Prostatomegaly to 5.1 cm in transverse dimension. Reading Location: [id number] CC: NERI Blas; Dr. Helen Lainez MD ~ Dry Cure Worker: Signed [facility] 03-15-2025 Radiology Diagnostic study note [facility] Imaging Services [address] [place] [id number] Abdomen Limited MR#: [id number] Acct: [id number] Name: BENITO WHITTINGTON Rep #: [id number] : 1945 M 79 From: Jose Marte MD PCP: Dr. Helen Lainez MD Status: REG CLI Study:Abdomen Limited Date of Exam: 02/24 12/19 Exam# [id number] Ordering Dr: Yoko Blas [employer] PROCEDURE: ABDOMEN LIMITED 03/15/2025 REASON FOR EXAM: BLOATING, ABD PAIN COMPARISON: None FINDINGS: Liver: Grossly normal size and echotexture. Gallbladder: No stones sludge wall thickening or tenderness. Common bile duct: Normal measuring 5 mm.. Pancreas: Visualized portions are sonographically unremarkable. Other: Visualized portions of the right kidney are unremarkable. No right upperquadrant ascites. US/Abdomen Limited IMPRESSION: NORMAL RIGHT UPPER QUADRANT ULTRASOUND. Reading Location: [facility] CC: [employer]-C Yoko Blas; Dr. Helen Lainez MD ~ Dry Cure Worker: Signed [facility] 02-10-2025 Evaluation note Diagnosis Onset Date Resolution Abdominal pain acute January 7:25am Diarrhea acute February 10 7:25am Weight loss acute February 10 025 7:25am Abdominal pain acute February 10:20am Bloating acute March 08 10:20am Diarrhea acute March 08 10:20am Heartburn acute March 08 10:20am [facility] Work Phone: 1(850) 229-850403-19-2025 Evaluation note* Diagnosis Onset Date Resolution Status Admit Date Abdominal pain acute January 7:25am Diarrhea acute February 10 7:25am Weight loss acute February 10, 2 025 7:25am Abdominal pain acute February 10:20am Bloating acute March 08 10:20am Diarrhea acute March 08 10:20am Heartburn acute March 08 10:20am Bloating acute April 13, 2025 10:17am Periumbilical abdominal pain acute April 13, 2025 10:17am [facility] Work Phone: 1(112) 587-509303-19-2025 Evaluation note* Diagnosis Onset Date Resolution Status Admit Date Abdominal pain acute January 7:25am Diarrhea acute February 10 7:25am Weight loss acute February 10, 2 025 7:25am Abdominal pain acute February 10:20am Bloating acute March 08 10:20am Diarrhea acute March 08 10:20am Heartburn acute March 08 10:20am Bloating acute April 13, 2025 10:17am Periumbilical abdominal pain acute April 13, 2025 10:17am Atrial fibrillation acute May 03, 2025 9:50am Dizziness acute May 03, 2025 9:50a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 acute May 03, 2025 9 :50am Cardiomyopathy chronic May 03, 2025 9:50am Presence of cardiac defibrillator chronic May 03, 2025 9 :50am Thoracic aortic aneurysm wit hout rupture chronic May 03, 2025 9 :50am [facility] [employer] Work Phone: 1(480) 262-550303-19-2025 Evaluation note* Diagnosis Onset Date Resolution Status Admit Date Abdominal pain acute January 7:25am Diarrhea acute February 10 7:25am Weight loss acute February 10, 2 025 7:25am Abdominal pain acute February 10:20am Bloating acute March 08 10:20am Diarrhea acute March 08 10:20am Heartburn acute March 08 10:20am Bloating acute April 13, 2025 10:17am Periumbilical abdominal pain acute April 13, 2025 10:17am Hx of atrioventricular node ablation chronic May 03, 2025 9 :44am Presence of cardiac defibrillator ron May 03, 2025 9:44am Atrial fibrillation acute May 03, 2025 9:50am Dizziness acute May 03, 2025 9:50a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 May 03, 2025 9:50am Thoracic aortic aneurysm wit hout rupture chronic May 03, 2025 9 :50am [facility] Work Phone: 1(605) 220-134303-19-2025 Evaluation note* Diagnosis Onset Date Resolution Status Admit Date Abdominal pain acute January 7:25am Diarrhea acute February 10 7:25am Weight loss acute February 10, 7:25am Abdominal pain acute February 10:20am Bloating acute March 08 10:20am Diarrhea acute March 08 10:20am Heartburn acute March 08 10:20am Bloating acute April 13, 2025 10:17am Periumbilical abdominal pain acute April 13, 2025 10:17am Hx of atrioventricular node ablation chronic May 03, 2025 9 :44am Presence of cardiac defibrillator 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 May 03, 2025 9:50am Thoracic aortic aneurysm wit hout rupture chronic May 03, 2025 9 :50am Bloating acute May 18 9:15am Diarrhea acute May 18 9:15am Fecal urgency acute May 18, 2025 9:15am Periumbilical abdominal pain acute May 18, 2025 9:15am [facility] Work Phone: 1(113) 824-225403-19-2025 Procedure note [facility] Medical Records Department [address] [place] [address] Colonoscopy Report MR#: [id number] Acct: [id number] Name: BENITO WHITTINGTON Rep #:[id number] : 1945 79 From: Juan Diego Friend DO PCP: Dr. Helen Lainez MD Status:REG [facility] [place] Patient Name: Benito Whittington Procedure Date: 02/10/2025 8:36 AM Date of : 1945 Age: 79 Procedure: Colonoscopy Indications: Chronic diarrhea Providers: DO Matias Akers MD: Helen Lainez Medicines: Monitored Anesthesia Care Patient Profile: This is a 79 year old male. Refer to note in patient chart for documentation of history and physical. Last Colonoscopy: date unknown. Unable to locate last colonoscopy report. Complications: No immediate complications. Procedure: Pre-Anesthesia Assessment: - Prior to the procedure, a History and Physical was performed, and patient medications and allergies were reviewed. The patient is competent. The risks and benefits of the procedure and the sedation options and risks were discussed with the patient. All questions were answered and informed consent was obtained. Patient identification and proposed procedure were verified by the physician in the pre-procedure area. Mental Status Examination: alert and oriented. Airway Examination: normal oropharyngeal airway and neck mobility. Respiratory Examination: clear to auscultation. CV Examination: normal. ASA Grade Assessment: II - A patient with mild systemic disease. After reviewing the risks and benefits, the patient was deemed in satisfactory condition to undergo the procedure. The anesthesia plan was to use monitored anesthesia care (MAC). Immediately prior to administration of medications, the patient was re-assessed for adequacy to receive sedatives. The heart rate, respiratory rate, oxygen saturations, blood pressure, adequacy of pulmonary ventilation, and response to care were monitored throughout the procedure. The physical status of the patient was re-assessed after the procedure. After I obtained informed consent, the scope was passed under direct vision. Throughout the procedure, the patient's blood pressure, pulse, and oxygen saturations were monitored continuously. The Colonoscope was introduced through the anus and advanced to the terminal ileum. The colonoscopy was performed without difficulty. The patient tolerated the procedure well. The quality of the bowel preparation was adequate. Scope In: 8:49:35 AM Scope Withdrawal Time 0 hours 11 minutes 19 seconds Scope Out: 9:10:00 AM Total Procedure Duration Time 0 hours 20 minutes 25 seconds Findings: The perianal and digital rectal examinations were normal. Multiple small-mouthed diverticula were found in the recto-sigmoid colon, sigmoid colon and descending colon. A 5 mm polyp was found in the sigmoid colon. The polyp was sessile. The polyp was removed with a jumbo cold forceps. Resection and retrieval were complete. Verification of patient identification for the specimen was done. Estimated blood loss was minimal. The colon (entire examined portion) appeared normal. Biopsies were taken with a cold forceps for histology. Verification of patient identification for the specimen was done. Estimated blood loss was minimal. The terminal ileum appeared normal. Biopsies were taken with a cold forceps for histology. Verification of patient identification for the specimen was done. Estimated blood loss was minimal. Impression: - No specimens collected. Recommendation: - Discharge patient to home. - Resume previous diet. - Continue present medications. - Await pathology results. - Repeat colonoscopy in 5 years for surveillance. - Return to GI office. Procedure Code(s): --- Professional --- 87883, Colonoscopy, flexible; with biopsy, single or multiple CPT copyright 2021 [employer]. All rights reserved. The codes documented in this report are preliminary and upon real estate agency licensee review may be revised to meet current compliance requirements. Juan Diego Noriega DO 02/10/2025 9:20:42 AM This report has been signed electronically. Number of Addenda: 0 Note Initiated On: 02/10/2025 8:36 AM 02/10/25919 Date _ Juan Diego Noriega DO Cosigner Signature: Date (if indicated) CC: Dr. Helen Lainez MD; Juan Diego Noriega DO ~ Date Dictated: 02/10/25835 Date Transcribed: Dry Cure Worker: RF Signed [facility]03-19-2025 Procedure note [facility] Medical Records Department [address] [place] [address] Operative Report - CC Letter MR#: [id number] Acct: [id number] Name: BENITO WHITTINGTON Rep #:[id number] : 1945 79 From: Juan Diego Noriega DO PCP: Dr. Helen Lainez MD Status:[facility] 02/10/2025 Helen Lainez [address] [place] [address] Re : Colonoscopy procedure for Benito Whittington Dear Dr. Lainez This procedure was performed on Monday, February 10, 2025. My impressions and recommendations are as follows: Impressions : - No specimens collected. Recommendations : - Discharge patient to home. - Resume previous diet. - Continue present medications. - Await pathology results. - Repeat colonoscopy in 5 years for surveillance. - Return to GI office. My findings are described in the full procedure note, which is enclosed. If I can be of further assistance, please feel free to contact me at . Sincerely, Juan Diego Noriega DO 02/10/2025 9:20:42 AM This report has been signed electronically. 02/10/25919 Date _ Juan Diego Noriega DO Cosigner Signature: Date (if indicated) CC: Dr. Helen Lainez MD; Juan Diego Noriega DO ~ Date Dictated: 02/10/2536 Date Transcribed: Dry Cure Worker: RF Signed [facility]03-19-2025 Consult note [facility] Medical Records Department [address] [place] [address] Anesthesia Postop Eval I 02/10/25 0855 MR#: [id number] Acct: [id number] Name: BENITO WHITTINGTON Rep #:[id number] : 1945 79 From: Mumtaz Tobias CRNA PCP: Dr. Helen Lainez MD Status:REG [facility] Y Race: C Location: [place] [address] Anesthesia: Postop Eval I Current Vital Signs Temperature: 97.0 F Pulse Rate: 73 Blood Pressure: 74/47 Respiratory Rate: 20 Pulse Ox: 99 Oxygen Delivery Method: Room Air Assessment Airway patent: Yes Spontaneous unlabored respirations: Yes Mental status: Awake and Calm nausea: No Vomiting: No Anesthesia Complication: No Fluid Hydration Crystalloid volume administer (ml): 20 Total IV fluid infused: 20 Progress Note Anesthesia document: Postop Eval 1 completed: Yes 02/10/25 0916 y WINE CONSULTANT> Date _ Mumtaz Tobias WINE CONSULTANT Cosigner Signature: Date CC: ~ Signed [facility]03-19-2025 History and physical note [facility] Medical Records Department [address] [facility] [place] [address] History & Physical Exam 02/10/25 0833 MR#: [id number] Acct: [id number] Name: BENITO WHITTINGTON Rep #:[id number] : 1945 79 From: [facility] Friend PCP: Dr. Helen Lainez MD Status:[facility] Location: [place] [address] HPI - General General Date of Admission: 02/10/25 Date of Service: 02/10/25 Chief Complaint: diarrhea HPI Narrative BENITO WHITTINGTON, is a 79 M who presents Chief Complaint: diarrhea Details: 79y/o male presents for consultation with complaints of diarrhea. Stool culture,O&P negative 09/13/2024. PMH significant for non-CAD related cardiomyopathy, SVT, VT, MVP, hyperlipidemia, hypertension, thoracic aortic aneurysm, with AICD and on Eliquis. He reports a long history of alternation co nstipation and diarrhea, reporting he was using Lactulose PRN until 2 months ago. Over the past6 months he reports an increase in diarrhea and much worse the past 3 weeks. He is experiencing generalized abdominal discomfort and fecal urgency without incontinence. Stools are typically after meals and denies any bleeding. He complains of a 10-15lb weight loss over the past several months as well. - diarrhea and abdominal discomfort - the diarrhea has been ongoing for the past few years but much worse recently (3 weeks) - reports in the past he would have diarrhea that would last 3-4 days - but now the diarrhea is persisting - denies any fecal incontinence - he does experience urgency - waking up at HS with diarrhea on occasion - [place] 6-7 - having 1-5x a day - stools are usually after meals - he is not diabetic - denies any h/o pancreatitis - denies any family h/o celiac disease - denies any family h/o esophageal, gastric or colon CA - stopped Lactulose 2 months ago - states he was taking this because he was constipated - reports stools can fluctuate between constipation and diarrhea for many years - started Jardiance & Entresto 6 months ago - denies any dietary changes - HB infrequent - denies dysphagia unless he tries to swallow a handful of pills - last colon 10 years ago - polyps - states eh had two colonoscopies which showed inflammation in the colon - does not recall any other specifics or treatment - weight loss of 10-15lbs over the past 6 months - Imodium does help - he lives alone - prepares his own meals - continues to drive - denies any falls in the past year - [facility] Medical History COPD (chronic obstructive pulmonary disease) Loss of hearing Cancer Anxiety Alcohol use Low iron Back pain History of IBS Former smoker History of echocardiogram History of stress test Essential tremor Chronic a-fib Essential hypertension Wears glasses Arthritis Thoracic aortic aneurysm Syncope MVP (mitral valve prolapse) Shortness of breath on exertion Cardiology follow-up encounter Pacemaker ICD (implantable cardioverter-defibrillator) in place Long-term use of high-risk medication Near syncope SVT (supraventricular tachycardia) Nonrheumatic mitral (valve) prolapse Premature ventricular contraction Colitis Depression Thoracic aortic aneurysm without rupture Cardiomyopathy Ventricular tachycardia Hyperlipidemia Hypertension Home Medications ?Medication ?Instructions ?Recorded ?Last Taken ?Type vit C 250 mg-vit E 200 unit-zinc 1 cap PO BID 07/30/23 Unknown History ox 12.5 ai-njsdwp-xtijax-zeax capsule (ICaps AREDS2) simvastatin 20 mg tablet 20 mg PO QHS cholesterol #90 tabs 04/21/24 02/08/25 Rx mecobalamin (vitamin B12) 1,000 1,000 mcg PO DAILY 06/1702/09/25 History mcg chewable tablet amiodarone 200 mg tablet 100 mg (1/2 x 200 mg) PO NATALYA LY Pt 07/30/24 02/10/25 Rx awaiting mail in RX, he is OUT of medication #30 tabs apixaban 5 mg tablet (Eliquis) 5 mg PO BID #180 tabs 0 07/30/24 02/07/25 Rx empagliflozin 25 mg tablet 25 mg PO DAILY 10/13/24 History (Jardiance) sacubitril 97 mg-valsartan 103 mg 1 tab PO BID 4 02/10/25 History tablet (Entresto) metoprolol succinate 25 mg 12.5 mg PO QHS 02/09/25 Unk nown History tablet,extended release 24 hr Allergy/AdvReac Type Severity Reaction Status Date / Time No Known Allergies Allergy Verified 02/09/25 11:21 Family History Father Heart disease Sister Heart disease Brother Heart disease Mother Pancreas (digestive gland) works poorly Surgical History Hx of colonoscopy History of total left knee replacement History of bilateral cataract extraction Hx of atrioventricular node ablation History of partial nephrectomy (07/02/18) Presence of cardiac defibrillator History of tonsillectomy Social History household members: none current occupational status: retired Smoking Status: Former smoker how long ago did patient quit smokin alcohol intake: never substance use type: does not use caffeine: Yes Type: coffee Number of servings: 2 frequency: 1-2 times per week ROS Constitutional Constitutional: Denies fatigue, fever(s), poor appetite, weight gain or weight loss Gastrointestinal Gastrointestinal: Denies belching, bloating, change in bowel habits, change in stool character, chewing difficulty, coffee ground emesis, constipation, cramping, diarrhea, dyspepsia, dysphagia, earlysatiety, excessive flatus, fecalincontinence, heartburn, hematemesis, hematochezia, hemorrhoids, loose stools, melena, nausea, odynophagia, rectal bleeding, tenesmus, vomiting or weight changes Vital Signs Vital Signs Vital Signs: 02/10/25 08:00 02/10/25 08:03 Temperature 97.2 F L Temperature Source Temporal Pulse Rate 70 Respiratory Rate 16 Respiratory Pattern Normal Blood Pressure 97/67 Blood Pressure Mean 77 Blood Pressure Source Monitor Blood Pressure Position Semi-Fowlers Blood Pressure Location Right Arm Pulse Ox 100 Oxygen Delivery Method Room Air Weight Weight: 147 lb 11.355 oz Body Mass Index (BMI) 18.4 Physical Exam Const alert, oriented x3, no apparent distress and healthy appearing General Appearance: cooperative GI normal to inspection, nondistended, normoactive bowel sounds, soft to palpation,non-tender and non-distended Percussion: normal to percussion Rectal Exam: deferred Assessment & Plan Assessment/Plan (1) Abdominal pain: QUALIFIERS: Abdominal location: generalized Qualified Code(s): R10.84 - Generalized abdominal pain (2) Weight loss: (3) Diarrhea: QUALIFIERS: Diarrhea type: unspecified type Qualified Code(s): R19.7 - Diarrhea, unspecified PLAN: Assessment and Plan Assessment and Plan (1) Diarrhea: Status: Acute Qualifiers: Diarrhea type: unspecified type Qualified Code(s): R19.7 - Diarrhea, unspecified (2) Weight loss: Status: Acute (3) Abdominal pain: Status: Acute Qualifiers: Abdominal location: generalized Qualified Code(s): R10.84 - Generalizedabdominal pain (4) Fecal urgency: Status: Acute (5) Heartburn: Status: Acute Orders: Orders Colonoscopy Today NERI Castro R19.7 - Diarrhea, unspecified, R63.4 - Abnormal weight loss ENTERIC PATHOGEN PANEL STOOL Today NERI Castro K58.9 - Irritable bowel syndrome, unspecified, R19.7 - Diarrhea, unspecified, R63.4 - Abnormal weight loss CDIFF (PCR) Today NERI Castro R19.7 - Diarrhea, unspecified, R63.4 - Abnormal weight loss Celiac Disease Profile Today NERI Castro R19.7 - Diarrhea, unspecified, R63.4 - Abnormalweight loss Pancreatic Elastase, Fecal Today NERI Castro R19.7 - Diarrhea, unspecified, R63.4 - Abnormal weight loss Calprotectin, Stool Today NERI Castro R19.7 - Diarrhea, unspecified, R63.4 - Abnormal weight loss Giardia Lamblia, Stool EIA Today NERI Castro R19.7 - Diarrhea, unspecified, R63.4 - Abnormal weight loss Ova and Parasites 8623 Today NERI Castro K58.9 - Irritable bowel syndrome, unspecified, R19.7 - Diarrhea, unspecified, R63.4 - Abnormal weight loss Allergen, Food Profile 14 Today NERI Castro R19.7 - Diarrhea, unspecified, R63.4 - Abnormal weight loss CRP Today NERI Castro R19.7 - Diarrhea, unspecified, R63.4 - Abnormalweight loss Abd Inc Decub and/or Erect Today NERI Castro R19.7 - Diarrhea, unspecified, R63.4 - Abnormal weight loss H. PYLORI STOOL AG Today NERI Castro R10.9 - Unspecified abdominal pain, R12 - Heartburn, R15.2 - Fecal urgency, R19.7 - Diarrhea, unspecified, R63.4 - Abnormal weight loss Medications: Changed From empagliflozin (Jardiance) 12.5 mg (1/2 x 25 mg) PO DAILY 14 tabs 0RF To empagliflozin (Jardiance) 25 mg PO DAILY Rashmi Fatima [employer] Discontinued lactulose Discontinued Reason: Pt no longer taking 10 grams PO BID PRN Plan 79y/o male presents for consultation with complaints of diarrhea. Stool culture,O&P negative 09/13/2024. PMH significant for non-CAD related cardiomyopathy, SVT, VT, MVP, hyperlipidemia, hypertension, thoracic aortic aneurysm, with AICD and on Eliquis. He reports a long history of alternation co nstipation and diarrhea, reporting he was using Lactulose PRN until 2 months ago. Over the past6 months he reports an increase in diarrhea and much worse the past 3 weeks. He is experiencing generalized abdominal discomfort and fecal urgency without incontinence. Stools are typically after meals and denies any bleeding. He complains of a 10-15lb weight loss over the past several months as well. Ihave ordered stool testing, labs and scheduled him for a colonoscopy pending cardiac clearance withapproval to hold Eliquis 2 days prior to procedure. 1. Complete abdominal x-ray today to r/o overflow diarrhea 2. Start Metamucil 2tsp once a day in ounces of water after breakfast every morning 3. Complete labs (CRP, Food allergen panel, Celiac Panel) 4. Complete stool testing (GIPCR, Culture, O&P, C. Diff) 5. Colonoscopy - obtain cardiac clearance and approval to hold Eliquis Patient Instructions: 1. Metamucil 2tsp once a day in ounces of water after breakfast every morning 02/10/25 0836 Cosigner Signature (if applicable): CC: Dr. Helen Lainez MD; Juan Diego Friend, DO~ Signed [facility]03-19-2025 Consult note [facility] Medical Records Department [address] [place] [address] Pre-Anesthesia Evaluation 02/10/25 0825 MR#: [id number] Acct: [id number] Name: BENITO WHITTINGTON Rep #:[id number] : 1945 79 From: Yoni Edwards MD PCP: Dr. Helen Lainez MD Status:[facility] Y Race: C Location: [place] [address] ASA Classification* ASA Classification ASA Classification: 2 Assessment & Plan Anesthesia* Anesthesia Assessment Anesthesia Assessment: Discussed sedation and/or anesthesia options, risks, benefits, and alternatives with patient/parents/legal guardian/POA. Questions invited. The patient/parents/legal guardian/POA seems to understand and agrees to proceedwith anesthesia plan. Reviewed the physical assessment, medical history, allergy history and patient home medications list prior to surgery/procedure/anesthetic and documented any changes. Performed airway and anesthesia risk assessments. Anesthesia Type Anesthesia Type: MAC History Source History Obtained from:: Patient and Chart Anesthesia Focused Assessment* Temperature: 97.2 F Pulse Rate: 70 Blood Pressure: 97/67 Respiratory Rate: 16 Pulse Ox: 100 Oxygen Delivery Method: Room Air Airway Assessment Mouth opens: >3 cm Mallampati Score: I Teeth Condition: Missing (Patient is edentulous on the top. Bottom teeth are intact.) Neck Range of motion (ROM): Limited ROM Focused Labs Anesthesia Preop lab: CBC WBC 4.3 K/mm3 (4.4-11.0) L 07/30/24 10:33 07/30/24 RBC 4.82 M/mm3 (4.6-6.2) 07/30/24 10:07/30/24 Hgb 14.1 g/dL (13.0-16.5) 07/30/24 10:07/30/24 Hct 45.1 % (40-54) 07/30/24 10:07/30/24 Plt Count 93 K/mm3 (150-450) L 07/30/24 10:07/30/24 CHEMISTRY Potassium 3.8 mmol/L (3.5-5.1) 09/11/24 13:19 09/11/24 Sodium 136 mmol/L (136-145) 09/11/24 13:19 09/11/24 Magnesium 2.4 mg/dL (1.6-2.6) 04/23/24 15:22 04/23/24 Phosphorus 2.4 mg/dL (2.5-4.9) L 07/04/23 10:01 07/04/23 BUN 15 mg/dL (7-18) 09/11/24 13:19 09/11/24 Creatinine 1.33 mg/dL (0.70-1.30) H 09/11/24 13:19 Glucose 113 mg/dL (74-106) H 09/11/24 13:19 09/11/24 TSH 0.937 uIU/mL (0.358-3.740) 07/07/24 12:34 06/25 02/15 COAG PT 17.2 SECONDS (11.7-14.9) H 02/07/24 17:40 01/23 04/17 Pre-Assessment Diagnosis/Proposed Procedure Planned Operative Procedure(s): CSCOPE Anesthesia History Anesthesia History - 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 When Was Last Pacemaker Check 03/26/18 06/26/18 10:06 QUESTION #4 FULL TEXT: You/Your Family Experience fever (hyperthermia) with Anesthesia Last Oral Intake Last Oral intake: Last Oral Intake NPO since 00:00 02/10/25 08:03 Meds taken in AM with sips of Yes 02/10/25 08:03 water? Meds patient instructed to amiodarone 02/10/25 08:03 take am of surgery emtrestp Any additional information?: Yes NPO since: 04:30 (Patient finished prep at 4:30AM.) Meds taken in AM with sips of water?: Yes PONV PONV - deli slicer: PONV - deli slicer Female No 02/09/25 11:24 HX of Motion Sickness No 02/09/25 11:24 HX of N/V After Surgery No 02/09/25 11:24 Non-Smoker Yes 02/09/25 11:24 Duration of Surgery greater No 02/09/25 11:24 than 60 minutes Number of Risk Factors 1 02/09/25 11:24 PONV Score Low Risk 02/09/25 11:24 Height & Weight Height & Weight: Anesthesia: Height & Weight Height 6 ft 3 in 02/10/25 08:03 Weight: 67 kg 02/10/25 08:03 Body Mass Index (BMI) 18.4 02/10/25 08:03 Respiratory Assessment Respiratory Assessment - deli slicer: Respiratory Tract Infection Hx - deli slicer Hx Respiratory Tract Infection No 02/09/25 11:24 STOP Sleep Apnea STOP Sleep Apnea - deli slicer: STOP Sleep Apnea - deli slicer Hx Hypertension Yes: CONTROLLED WITH MED 02/09/25 11:24 Hx Sleep Apnea No 02/09/25 11:24 CPAP BIPAP Do you snore loudly (louder No 02/09/25 11:24 than talking or can be heard Do you often feel tired/ Yes 02/09/25 11:24 fatigued/ sleepy during daytime? Has anyone observed you stop No 02/09/25 11:24 breathing during sleep? STOP Results Positive 02/09/25 11:24 QUESTION #5 FULL TEXT : Do you snore loudly (louder than talking or can be heard through closeddoors)? 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 Specify any problems Hx of Preganancy in last 3 N/A 02/09/25 11:24 Months Nurse Filling Out Transfusion DSCHRIBER 02/09/25 11:24 & Questions: Date: 02/09/25 02/09/25 11:24 Time: 11:26 02/09/25 11:24 Patient unable to answer at this time (ie. 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: /Reproductive Hx- deli slicer Hx Now No 02/09/25 11:24 Gestational Age (in weeks): EDC: Hx Hx Para Hx Section SAB No 02/09/25 11:24 PFSH Medical History COPD (chronic obstructive pulmonary disease) Loss of hearing Cancer Anxiety Alcohol use Low iron Back pain History of IBS Former smoker History of echocardiogram History of stress test Essential tremor Chronic a-fib Essential hypertension Wears glasses Arthritis Thoracic aortic aneurysm Syncope MVP (mitral valve prolapse) Shortness of breath on exertion Cardiology follow-up encounter Pacemaker ICD (implantable cardioverter-defibrillator) in place Long-term use of high-risk medication Near syncope SVT (supraventricular tachycardia) Nonrheumatic mitral (valve) prolapse Premature ventricular contraction Colitis Depression Thoracic aortic aneurysm without rupture Cardiomyopathy Ventricular tachycardia Hyperlipidemia Hypertension Home Medications ?Medication ?Instructions ?Recorded ?Last Taken ?Type vit C 250 mg-vit E 200 unit-zinc 1 cap PO BID 07/30/23 Unknown History ox 12.5 yy-pukpur-vicklx-zeax capsule (ICaps AREDS2) simvastatin 20 mg tablet 20 mg PO QHS cholesterol #90 tabs 04/21/24 02/08/25 Rx mecobalamin (vitamin B12) 1,000 1,000 mcg PO DAILY 06/1702/09/25 History mcg chewable tablet amiodarone 200 mg tablet 100 mg (1/2 x 200 mg) PO NATALYA LY Pt 07/30/24 02/10/25 Rx awaiting mail in RX, he is OUT of medication #30 tabs apixaban 5 mg tablet (Eliquis) 5 mg PO BID #180 tabs 0 07/30/24 02/07/25 Rx empagliflozin 25 mg tablet 25 mg PO DAILY 10/13/24 History (Jardiance) sacubitril 97 mg-valsartan 103 mg 1 tab PO BID 4 02/10/25 History tablet (Entresto) metoprolol succinate 25 mg 12.5 mg PO QHS 02/09/25 Unk nown History tablet,extended release 24 hr Allergy/AdvReac Type Severity Reaction Status Date / Time No Known Allergies Allergy Verified 02/09/25 11:21 Family History Father Heart disease Sister Heart disease Brother Heart disease Mother Pancreas (digestive gland) works poorly Surgical History Hx of colonoscopy History of total left knee replacement History of bilateral cataract extraction Hx of atrioventricular node ablation History of partial nephrectomy (07/02/18) Presence of cardiac defibrillator History of tonsillectomy Social History household members: none current occupational status: retired Smoking Status: Former smoker how long ago did patient quit smokin alcohol intake: never substance use type: does not use caffeine: Yes Type: coffee Number of servings: 2 frequency: 1-2 times per week Review of Systems (Anesthesia) ROS Narrative System reviewed and no additional complaints, except as documented. 02/10/25 0833 juan GRAVES> Date _ Yoni Edwards MD [facility] Signature: Date CC: ~ Signed [facility]03-19-2025 [facility] Medical Records Department [address] [place] [address] History Physical Exam 02/10/25832 MR#: [id number] Acct: [id number] Name: BENITO WHITTINGTON Rep #: [id number] : 1945 79 From: Juan Diego Friend DO PCP: Dr. Helen Lainez MD Status:[facility] Location: [place] [address] HPI - General General Date of Admission: 02/10/25 Date of Service: 02/10/25 Chief Complaint: diarrhea HPI Narrative BENITO WHITTINGTON, is a 79 M who presents Chief Complaint: diarrhea Details: 79y/o male presents for consultation with complaints of diarrhea. Stool culture, O P negative 09/13/2024. PMH significant for non-CAD related cardiomyopathy, SVT, VT, MVP, hyperlipidemia, hypertension, thoracic aortic aneurysm, with AICD and on Eliquis. He reports a long history of alternation constipation and diarrhea, reporting he was using Lactulose PRN until 2 months ago. Over the past 6 months he reports an increase in diarrhea and much worse the past 3 weeks. He is experiencing generalized abdominal discomfort and fecal urgency without incontinence. Stools are typically after meals and denies any bleeding. He complains of a 10-15lb weight loss over the past several months as well. - diarrhea and abdominal discomfort - the diarrhea has been ongoing for the past few years but much worse recently (3 weeks) - reports in the past he would have diarrhea that would last 3-4 days - but now the diarrhea is persisting - denies any fecal incontinence - he does experience urgency - waking up at HS with diarrhea on occasion - Faulkner 6-7 - having 1-5x a day - stools are usually after meals - he is not diabetic - denies any h/o pancreatitis - denies any family h/o celiac disease - denies any family h/o esophageal, gastric or colon CA - stopped Lactulose 2 months ago - states he was taking this because he was constipated - reports stools can fluctuate between constipation and diarrhea for many years - started Jardiance Entresto 6 months ago - denies any dietary changes - HB infrequent - denies dysphagia unless he tries to swallow a handful of pills - last colon 10 years ago - polyps - states eh had two colonoscopies which showed inflammation in the colon - does not recall any other specifics or treatment - weight loss of 10-15lbs over the past 6 months - Imodium does help - he lives alone - prepares his own meals - continues to drive - denies any falls in the past year - [facility] Medical History COPD (chronic obstructive pulmonary disease) Loss of hearing Cancer Anxiety Alcohol use Low iron Back pain History of IBS Former smoker History of echocardiogram History of stress test Essential tremor Chronic a-fib Essential hypertension Wears glasses Arthritis Thoracic aortic aneurysm Syncope MVP (mitral valve prolapse) Shortness of breath on exertion Cardiology follow-up encounter Pacemaker ICD (implantable cardioverter-defibrillator) in place Long-term use of high-risk medication Near syncope SVT (supraventricular tachycardia) Nonrheumatic mitral (valve) prolapse Premature ventricular contraction Colitis Depression Thoracic aortic aneurysm without rupture Cardiomyopathy Ventricular tachycardia Hyperlipidemia Hypertension Home Medications ???Medication ???Instructions ???Recorded ???Last Taken ???Type vit C 250 mg-vit E 200 unit-zinc 1 cap PO BID 07/30/23 Unknown Hist ory ox 12.5 xk-dxwswn-szeijh-zeax capsule (ICaps AREDS2) simvastatin 20 mg tablet 20 mg PO QHS cholesterol #90 tabs 04/21/24 02/08/25 Rx mecobalamin (vitamin B12) 1,000 1,000 mcg PO DAILY 05/01/24 History mcg chewable tablet amiodarone 200 mg tablet 100 mg (/2 x 200 mg) PO DAILY Pt 07/30/24 02/10/25 Rx awaiting mail in RX, he is OUT of medication #30 tabs apixaban 5 mg tablet (Eliquis) 5 mg PO BID #180 tabs 07/30/24 Rx empagliflozin 25 mg tablet 25 mg PO DAILY 10/13/24 02/07/25 H istory (Jardiance) sacubitril 97 mg-valsartan 103 mg 1 tab PO BID 10/13/24 02/10/25 Hi story tablet (Entresto) metoprolol succinate 25 mg 12.5 mg PO QHS 02/09/25 Unknown Hi story tablet,extended release 24 hr Allergy/AdvReac Type Severity Reaction Status Date / Time No Known Allergies Allergy Verified 02/09/25 11:21 Family History Father Heart disease Sister Heart disease Brother Heart disease Mother Pancreas (digestive gland) works poorly Surgical History Hx of colonoscopy History of total left knee replacement History of bilateral cataract extraction Hx of atrioventricular node ablation History of partial nephr (more content not included)...[facility]11-19-2024 Evaluation note* Diagnosis Onset Date Resolution Status Admit Date Abdominal pain acute September 252023 9:51am Diarrhea acute October 13, 2024 9:51am Fecal urgency acute October 132023 9:51am Heartburn acute October 13, 2024 9:51am Weight loss acute September 9:51am Atrial fibrillation acute Decem 2023 8:24am Dizziness acute November 06, 2024 8:24am residential current use of amiodarone acute November 06 8:24am Cardiomyopathy chronic October 252023 8:24am Presence of cardiac defibrillator chronic November 06 024 8:24am Thoracic aortic aneurysm without rupture chronic November 06 024 8:24am Abdominal pain acute January 7:25am Diarrhea acute February 10 7:25am Weight loss acute February 10 025 7:25am [facility] Work Phone: [phone] 390-330705-10-2024 NoteHNO ID: [id number] Author: DENICE MARRUFO APRN.JESUS Service: ? Author Type: Nurse Practitioner Type: Progress Notes Filed: 04/03/2024 13:33 Note Text: Reviewed, continue with current plan of care. Denice Marrufo APRN.[facility]PS[facility]05-10-2024 History of Present illness Narrative* Denice Marrufo APRN.CNP - 04/03/2024 1:33 PM EDT Reviewed, continue with current plan of care. Denice Marrufo APRN.CNP documented [facility]Tr[facility] Nurse Note* Kaz Cancino RN - 04/03/2024 10:38 AM EDT Pt reports Lt ACW incision is open to air. Steri strips remain in place. Pt reports incision is healing well without gaps in the incision line. Pt denies bleeding, drainage or bright redness. Pt reports no edema. Pt denies pain at the site or fever/chills. Pt voices understanding that he may shower but not submerge in water. Pt voices understanding that movement restrictions remain in place for Lt shoulder. Pt encouraged to keep incision open to air. Pt discouraged from applying any ointments or lotions to incision. Pt will call our office should incision develop redness or drainage. Pt will call our office with new pain or fever. Pt reports he has an appointment at the [place] [facility] on Sat04/06/24. He reports they manage his device checks. Specifically discussed pt should avoid any upward and backward movement involving left shoulder. 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 Kaz Cancino RN [facility]05-10-2024 Nurse Note* Kaz Cancino RN - 04/03/2024 10:38 AM EDT Pt reports Lt ACW incision is open to air. Steri strips remain in place. Pt reports incision is healing well without gaps in the incision line. Pt denies bleeding, drainage or bright redness. Pt reports no edema. Pt denies pain at the site or fever/chills. Pt voices understanding that he may shower but not submerge in water. Pt voices understanding that movement restrictions remain in place for Lt shoulder. Pt encouraged to keep incision open to air. Pt discouraged from applying any ointments or lotions to incision. Pt will call our office should incision develop redness or drainage. Pt will call our office with new pain or fever. Pt reports he has an appointment at the [place] [facility] on Sat04/06/24. He reports they manage his device checks. Specifically discussed pt should avoid any upward and backward movement involving left shoulder. 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 Kaz Cancino RN documented in this encounterTr[facility]ull [facility]05-03-2024 NoteHNO ID: [id number] Author: ESTHER ALMANZAR RN Service: Care Management Author Type: Registered Nurse Type: Care Mgt Progress Note Filed: 03/27/2024 14:13 Note Text: CARE MANAGEMENT UTILIZATION REVIEW COMMITTEE CODE 44 (Admission Status Discrepancy Review) Admission Date: 03/26/2024 Patient's Initial Order is: Inpatient Date Received: March 27, 2024 Date Reviewed: March 27, 2024 md Rose, the practitioner responsible for the care of the patient, was consulted and concurs with the determinination made by the UR committee. Under the authority of the Utilization Management Committee, the Physician Advisor, Dr. David Rollins, has reviewed the medical record of the above patient. The following recommendation has been made by the Physician Advisor, based upon the current available medical information as of the date of this determination. The patient is appropriate for: Outpatient in a Bed/Extended Recovery Rationale for this decision: Lack of medical necessity for inpatient admission SIGNATURE: Esther Almanzar RN PATIENT NAME: Benito Whittington DATE: March 27, 2024 TIME: 2:13 PM Disclaimer: The information in this determination is to be used for utilization management purposes only. The information and recommendation is made pursuant to Medicare Hospital Conditions of Participation (442 CFR Part 482) and is neither a judgment nor an assessment with regard to the appropriateness or quality of the clinical care. Nothing in this document may be used to limit clinical services provided to the above named patient. This form should be used as one part of the process utilized to ensure compliance with [facility] policy regarding Inpatient Admission and Observation Services. The definitions of Inpatient and Observation used in making the determination above are those provided in Medicare Benefit Policy Manual Chapter 1, Section 1 and 10, Chapter 6, Section 20, and the Medicare Claims Processing Manual Chapter 1, Section 50.3 and Chapter 4, Section 290. This recommendation should be considered as only one factor in determining the patient's final level of service along with other pertinent documentation such as the treating physician's order as documented evidence of concurrence.[facility]05-03-2024 NoteHNO ID: [id number] Author: RACIEL BETANCOURT RN Service: Electrophysiology Author Type: Registered Nurse Type: Progress Notes Filed: 03/27/2024 12:17 Note Text: Stable ICD function. Teaching completed. Follow up in [place]. [facility]05-03-2024 NoteHNO ID: [id number] Author: SOFIA REYES RN Service: Care Management Author Type: Registered Nurse Type: Care Mgt Initial Assessment Filed: 03/27/2024 11:00 Note Text: CARE MANAGEMENT: ASSESSMENT AND DISCHARGE PLAN SERVICE DATE: March 27, 2024 SERVICE TIME: 10:56 AM PCP: Helen Lainez MD Primary Contact: Extended Emergency Contact Information Primary Emergency Contact: ta stevens Mobile Relation: Friend Admission Status: Inpatient Insurance Provider: MEDICARE A AND B Discharge Planning requested by: Per Department Practice Potential Transition Plans Home Advance Directives Current Advance Directive: None Public Address System Operator Attempted to Assist with AD Completion: Yes Action: Education Provided Current Living Arrangements and Support Lives with: Alone Type of Residence: Private Residence (House) Does the patient have to climb stairs at home?: Yes Support: Friends/neighbors How do you manage to accomplish the following: Independent: Ambulation;Bathe/Shower;Dress;Meals/Meal Prep;Going to the bathroom;Medication Management;Transportation to appointments/community Current Services/Equipment Current Post-Acute Service(s): None Discharge Planning Patient Goal(s): General wellness, Be able to go home [place] of Choice Explained: [place] of Choice Given: No Reason Not Given: No placements necessary Are you interested in bedside delivery of your medications? Yes Discharge Planning Participant(s): Patient Patient/Family Comments: Caregiver Assessment: Caregiver is ready, willing and able to meet the patient's needs as recommended by the inter-professional team: No Caregiver needed Transport at Discharge: Transportation Arrangements: Car Destination: Home Needs Prior to Discharge: Needs Prior to Discharge: Discharge Prescriptions;Pharmacy Bedside Delivery Post-Acute Discharge Plan: Met with patient at bedside. Resides alone in 1-story home. 2 1/2 steps to back door entryway. Indep with self-care. Drives. No issues with mobility. No DME or services. Anticipate will return home. Pt's friend Ta able to transport. No transitional needs identified. CM to follow. SIGNATURE: Sofia Reyes RN PATIENT NAME: Benito Whittington DATE: March 27, 2024 TIME: 10:56 AM CONTACT #: [phone] Telephone encounter Note* Telephone Encounter - Denice Marrufo APRN.CNP - 03/27/2024 12:13 PM EDT Please arrange wound check in 1 week (phone call). Patient underwent right ventricular ICD lead extraction with reimplant of right ventricular ICD lead with Dr. Jaime 03/26/2024. He will then follow-up locally in [place]. He will be discharged today. Thank you. Denice Marrufo APRN.JESUS [facility]05-03-2024 Miscellaneous Notes* Telephone Encounter - Denice Marrufo APRN.CNP - 03/27/2024 12:13 PM EDT Please arrange wound check in 1 week (phone call). Patient underwent right ventricular ICD lead extraction with reimplant of right ventricular ICD lead with Dr. Jaime 03/26/2024. He will then follow-up locally in [place]. He will be discharged today. Thank you. Denice Marrufo APRN.LOIN TRIMMER documented in this encounterTrumbull [facility] Hospital05-02-2024 NoteHNO ID: [id number] Author: ?, ?, ? Service: Pharmacy Author Type: Early Education Teacher Type: Plan of Care Filed: 03/26/2024 15:00 Note Text: PHARMACY MEDICATION REVIEW Patient Name: Benito Whittington : 1945 The following medications were updated within the VOCAL ARTIST medication list: Medications ADDED to VOCAL ARTIST medication list acetaminophen (TYLENOL) 325 mg tablet Take 650 mg by mouth every 6 hours as needed for pain. Medications CHANGED on VOCAL ARTIST medication list Medications REMOVED from VOCAL ARTIST medication list Additional comments: Verified medication information with e-scripts/dispense report,VA report and chart review. Confirmed medications with patient. Patient stated taking Tylenol - added to med list. Patient stated no longer taking Prozac and albuterol inhaled - did not add to med list. Required follow up actions for nursing: None The below information represents the best possible medication history: Yes Medication history completed by: Early Education Teacher: Frances Strauss (Manager Technology) Source of history: Patient: Reliability of source: Appears reliable, clearly identified: Medication name, Medication dose, Medication route, and Medication frequency, Pharmacy records: e-scripts/dispense report,VA report, and [facility] records Medication nonadherence identified: No barriers noted Reconciliation completed: No, pharmacist not yet reviewed Patient interested in Bedside Delivery Services or using CC OP Pharmacy at discharge? Unable to assess Preferred outpatient pharmacy: e- [facility] [address] [place] [id number] - [address] - [phone] [address] [facility] [place] [address] - [address] [facility] [place] [address] - [phone] Allergies: No Known Allergies Prior to Admission Medications Prescriptions Last Dose Informant Patient Reported? Taking? SIMVASTATIN 20 mg ORAL tablet 03/25/2024 Yes Yes Sig: Take 20 mg by mouth daily at bedtime. acetaminophen (TYLENOL) 325 mg tablet Yes Yes Sig: Take 650 mg by mouth every 6 hours as needed for pain. amiodarone (PACERONE) 200 mg tablet 03/26/2024 Yes Yes Sig: Take 200 mg by mouth once daily. apixaban (ELIQUIS) 5 mg tab(s) No Yes Sig: Take 1 tablet by mouth two times a day. Continue holding Eliquis, restart 11/15/2023. empagliflozin (JARDIANCE) 25 mg tablet Yes Yes Sig: Take 12.5 mg by mouth daily with breakfast. lactulose 10 gram/15 mL (15 mL) soln 03/25/2024 Yes Yes Sig: Take 1 Tablespoonful by mouth two times a day. metoprolol succinate ER (TOPROL XL) 25 mg 24 hr tablet 03/25/2024 Yes Yes Sig: Take 12.5 mg by mouth once daily. sacubitril-valsartan (ENTRESTO) 97-103 mg tablet 03/25/2024 Yes Yes Sig: Take 1 tablet by mouth two times a day. vit C/E/Zn/coppr/lutein/zeaxan (PRESERVISION AREDS-2 ORAL) 03/26/2024 Yes Yes Sig: Take 2 tablets by mouth once daily. Facility-Administered Medications: None Frances Carlos A (Manager Technology)[id number] 03/26/2024[facility]05-02-2024 NoteHNO ID: [id number] Author: GUTIERREZ PRINGLE APRN.WINE CONSULTANT Service: Nursing Author Type: Nurse Mock Up Maker Type: Anesthesia Procedure Notes Filed: 03/26/2024 09:10 Note Text: ANESTHESIOLOGY PROCEDURE NOTE Airway General Information Procedure Start Time/Medication Administration: 03/26/2024 8:53 AM Procedure End Time: 03/26/2024 8:54 AM Patient location during procedure: OR Timeout Performed Pre-procedure: timeout performed Consent Obtained: Yes Patient identity confirmed: arm band and patient Staffing Anesthesiologist: Jory Guevara MD WINE CONSULTANT: Gutierrez Pringle APRN.WINE CONSULTANT Performed by: WINE CONSULTANT Indications and Patient Condition Indications for airway management: anesthesia Preoxygenated: yes anesthesia circuit Patient position: sniffing Method: asleep Cricoid Pressure: No Manual In-Line Stabilization: No Difficult Mask: No Final Airway Details Final airway type: endotracheal airway Final Endotracheal Airway: ETT Cuffed: yes Successful intubation technique: direct laryngoscopy Endotracheal tube insertion site: oral Blade: Perez Blade size: #4 ETT size (mm): 7.5 Measured from: lips Measurement (cm): 22 Placement verified by: chest auscultation and capnometry Cormack-Lehane Classification: grade I - full view of glottis Number of attempts at approach: 1 Failed airway: no Unrecognized esophageal intubation: no Airway not difficult SIGNATURE: Gutierrez Pringle APRN.WINE CONSULTANT PATIENT NAME: Benito Whittington DATE: March 26, 2024 TIME: 9:10 AM CSN: [id number] [facility] Center04-24-2024 NoteHNO ID: [id number] Author: DENICE MARRUFO APRN.LOIN TRIMMER Service: ? Author Type: Nurse Practitioner Type: Progress Notes Filed: 03/18/2024 16:02 Note Text: [facility] Cardiology Electrophysiology PRIMARY CARE PHYSICIAN: Helen Lainez [address] [place] [address] CHIEF COMPLAINT: Cardiovascular medicine follow-up for defibrillator and upcoming procedure. HISTORY OF PRESENT ILLNESS: Mr. Whittington is a 78 year old male who presents today for follow-up regarding defibrillator and upcoming procedure. The patient has a past medical history significant for essential hypertension, cardiomyopathy with severe LV systolic dysfunction, persistent atrial fibrillation/atypical atrial flutter, on oral anticoagulation, single-chamber ICD implanted 2013, upgrade to TRAVEL FREIGHT AND PASSENGER AGENT-D system in 2018 with concurrent AV node catheter ablation, PPG replacement in 2022, he was referred to Dr. Jaime for right ventricular lead noise resulting in pacing inhibition noted during device interrogation. Impedances and sensing have been stable. 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 He was seen by Dr. Jaime 02/20/2024, reported feeling reasonably well, experiences occasional dizziness. Had not had ICD shock, chest pain or syncope. Maintained on oral anticoagulation and amiodarone for history of atrial fibrillation. Echo in early 2022 showed LVEF 30% stress test 10/2021 showed apical scar with no reversibility and LVEF 31%. His device is a [employer] system with Medtronic RV, RA and LV leads. Devices in the subpectoral location due to low BMI. He was recommended to undergo right ventricular lead extraction/reimplantation, and instructed to hold anticoagulation 72 hours prior to procedure. Interval History: The patient presents today to update his history and physical prior to upcoming procedure with Dr. Jaime 03/26/2024. He reports feeling well at today's appointment, denies any recent illness or fevers. He does have some ongoing shortness of breath which he states is unchanged. He has intermittent dizziness which she attributes to the malfunctioning pacemaker lead, denies syncope. He denies chest discomfort, pain at the left upper chest ICD site or palpitations. I reminded him he will need to hold Eliquis 3 days prior to procedure, last dose will be 03/22/2024. After doing a full review of his medications, it was discovered he was recently started on Jardiance, he reports about the beginning of this year, I have instructed him to also begin holding the Jardiance 3 days prior to procedure with the last dose 03/22/2024. I have reminded him he will be notified between 2-5 PM the day prior to procedure, he will be n.p.o. after midnight, may take his medications with a sip of water in the morning. He is ready to proceed with right ventricular ICD lead extraction with reimplant, as scheduled with Dr. Jaime 03/26/2024. All questions answered to his apparent satisfaction. PAST MEDICAL HISTORY Diagnosis Date - Acid reflux - Allergy, unspecified not elsewhere classified - Aneurysm, thoracic aortic (HCC) - Arrhythmia - Arthritis neck - Atypical atrial flutter (HCC) 11/12/2023 - Benign neoplasm of colon - Cardiac resynchronization therapy defibrillator (TRAVEL FREIGHT AND PASSENGER AGENT-D) in place - Chronic obstructive pulmonary disease (COPD) (HCC) - Congenital anomalies of pancreas - Coronary artery disease - Essential hypertension - Hyperlipemia - ICD (implantable cardioverter-defibrillator) in place - Longstanding persistent atrial fibrillation (HCC) - MVP (mitral valve prolapse) - Other and unspecified hyperlipidemia - Other premature beats - Other specified forms of chronic ischemic heart disease - Persistent atrial fibrillation (HCC) 11/12/2023 - PMH - PAST MEDICAL HISTORY OF dilated cardiolyopathy - Snoring - Stroke risk 11/12/2023 - SVT (supraventricular tachycardia) (HCC) - Syncope - VT (ventricular tachycardia) (HCC) PAST SURGICAL HISTORY Procedure Laterality Date - AV KYUNG ABLATION 09/30/[address] Jaime at [facility] - CATARACT EXTRACTION HX Bilateral - COLONOSCOPY FLX DX W/COLLJ SPEC WHEN PFRMD 02/16/2009 Colonoscopy - COLONOSCOPY FLX DX W/COLLJ SPEC WHEN PFRMD 09/29/2010 Colonoscopy [facility] - COLONOSCOPY FLX DX W/COLLJ SPEC WHEN PFRMD 08/16/2014 Colonoscopy - TRAVEL [employer]REIGHT AND PASSENGER AGENT-D/TRAVEL FREIGHT AND PASSENGER AGENT-P IMPLANT Left 09/30/2019 Upgrade single ICD to TRAVEL [employer]REIGHT AND PASSENGER AGENT-D with Dr. Barboza at [facility] - ESOPHAGOGASTRODUODENOSCOPY TRANSORAL DIAGNOSTIC 02/07/2015 EGD - ESOPHAGOGASTRODUODENOSCOPY TRANSORAL DIAGNOSTIC 05/17/2015 EGD [facility] out pt - HEART SURGERY HX - LEAD,PACEMAKER/DEFIB COMBO 03/11/2004 - NEPHRECTOMY PARTIAL 07/02/2018 - PAST SURGICAL HISTORY OF surgery on groin area lymph gland - SIGMOIDOSCOPY FLX DX W/COLLJ SPEC BR/WA IF PFRMD 01/12/2016 Sigmoidoscopy, flexible - TONSILLECTOMY PRIMARY/SECONDARY (more content not included)...[facility]04-24-2024 Instructions* Patient Instructions* Denice Marrufo APRN.LOIN TRIMMER - 03/18/2024 3:39 PM EDT Stop Eliquis and Jardiance 3 days prior to procedure, last dose will be 03/22/2024. Atrial Fibrillation What is atrial fibrillation? Atrial fibrillation (also called A-fib) is a fast or irregular heartbeat that starts in the upper chambers of the heart. The abnormal heartbeat affects the ability of the heart to pump blood to the rest of the body. What is the cause? An electrical signal in your heart starts each heartbeat, causing the heart muscle to squeeze (contract). Normally, this signal starts in the upper right chamber of the heart (the right atrium) at a place called the sinus node. The signal then follows normal pathways to the upper left atrium and tothe lower chambers of the heart (the ventricles). When you have atrial fibrillation, electrical signals don t start in the normal place in the right atrium and don t travel normally. This can cause the upper chambers of the heart (atria) to beat very fast and not in a normal pattern. Common causes of heart rhythm problems are conditions that damage the heart, like coronary artery disease, heart attack, or heart failure. Problems with the heart valves are another common cause. The heart has 4 valves that open and closewith each heartbeat to help blood flow in the right direction through the heart. Other causes of atrial fibrillation include: Health problems, such as a stroke, lung disease, diabetes, overactive thyroid gland, or high blood pressure Abuse of alcohol or drugs, such as cocaine Sometimes no cause can be found. What are the symptoms? Some people don t have any symptoms. When atrial fibrillation does cause symptoms, the most common ones are: Feeling like your heart is beating too fast or too hard or skipping beats or fluttering Feeling tired or weak all the time Symptoms that are more serious include: Chest pain Trouble breathing Lightheadedness or dizziness confusion How is it diagnosed? Your healthcare provider will ask about your symptoms and medical history and examine you. Tests may include: An ECG (also called an EKG), which measures and records your heartbeat. You may have an ECG while you are resting or while you exercise on a treadmill. You may also be asked to wear a small portable ECG monitor for a few days or sometimes a couple weeks. Blood tests An echocardiogram, which uses sound waves (ultrasound) to show the structures of the heart, like the valves How is it treated? The goal of treatment is to help the heart keep a normal rhythm. Your treatment depends on the cause of the atrial fibrillation, how often you have symptoms, and the severity of your symptoms. If you have no symptoms, or your symptoms are fairly mild, you may not need treatment. For some people atrial fibrillation lasts just a short time and the heart goes back to a normal rhythm on its own. If you keep having spells of atrial fibrillation, treatment may help keep you from having so manyspells. If a health problem like a leaky heart valve is causing the atrial fibrillation, treating the health problem may also treat the fast or irregular heartbeat. Other possible treatments are: Medicine: Your provider may prescribe medicine to slow or restore a normal heart rate and rhythm. You may also need medicine to prevent blood clots because when the heart beats irregularly, some of the blood can stay in the upper chambers too long. This makes it easier for blood clots to form, increasing your risk of having a stroke or heart attack. Electrical cardioversion: First, you will be given medicine called anesthesia to keep you from feeling pain during the procedure. Then your chest will be given an electrical shock. The electrical shock should make your heart start beating normally again. You may need medicine to keep your heart rhythm normal after this procedure. Ablation: Ablation is a procedure that uses a small tube called a catheter to deliver energy to theinside of the heart. The energy (usually radio waves) scars small areas of heart tissue. The scars block abnormal electrical pathways and help you have a normal heart rhythm. With some types of ablation treatment, you will also need a pacemaker. A pacemaker is an electronic device put under the skin of your chest to help control the heartbeat. How can I take care of myself? Take your medicines as prescribed. Keep your appointments for follow-up blood tests. Make sure your healthcare provider knows about changes in your diet or medical condition. Your provider also needs to know about all prescription and nonprescription medicines, herbs, or supplements that you are taking. Some medicines may interact with your heart medicine or increase your risk for atrial fibrillation. If you want to drink alcohol, ask your provider how much is safe for you to drink. Follow your healthcare provider's instructions. Ask your provider: ?How and when you will hear your test results ?How long it will take to recover ?What activities you should avoid and when you can return to your normal activities ?How to take care of yourself at home ?What symptoms or problems you should watch for and what to do if you have them Make sure you know when you should come back for a checkup. How can I help prevent atrial fibrillation? The best prevention is to have a heart-healthy lifestyle. Keep a healthy weight. Eat a healthy diet that is low in sodium and saturated and trans fat. Stay fit with the right kind of exercise for you. Decrease stress. Don t smoke. Limit your use of alcohol. If you have heart disease or high blood pressure, follow your healthcare provider's instructions for treatment. Copyright 2014 [employer] and/or one of its subsidiaries. All rights reserved. Heart Block What is heart block? Heart block is a problem with the electrical system in your heart that causes a change in the rate or rhythm of your heartbeat. An electrical signal in your heart starts each heartbeat, causing the heart muscle to squeeze (contract). Normally, this signal starts in the upper right chamber of the heart (the right atrium) at a place called the sinus node. The signal then follows pathways to the upper left atrium and to the lower chambers of the heart (the ventricles). If you have heart block, the electrical signals are slowed going from the upper chambers of the heart to the lower chambers. There are various degrees of heart block: First-degree heart block: The electrical signals are only slightly slowed. You may not have symptoms. First-degree heart block is common. Second-degree heart block: Some of the electrical signals do not reach your heart s lower chambers.Your heart rate gets slow or irregular. Third-degree block (complete heart block): The electrical signal from the upper chambers does not reach the lower chambers. The upper and lower chambers do not work together. Your heart may not be able to pump enough blood and oxygen to your brain and the rest of your body. A block that has existed for a long time may not be a problem. A block that starts suddenly may be a sign of a heart problem that is new or getting worse. Sometimes heart block can come and go, or itmay happen once and then never again. What is the cause? Heart blocks may be caused by: Disease of the heart arteries Disease of the heart muscle Heart attack Some kinds of surgery Some medicines Aging defects Heart disease Rheumatic fever Overdose of some heart medicines Heart infection What are the symptoms? First-degree and second-degree heart block may not cause any symptoms. When heart block does cause symptoms, they may include: Dizziness, especially when you quickly change positions Fainting Shortness of breath Feeling more tired than normal when you exert yourself, like when you climb stairs or even make a bed, or feeling tired all the time Chest pain Third-degree heart block can cause severe chest pain, severe trouble breathing, or a sudden irregular heartbeat with nausea, vomiting, or passing out. Third- degree heart block is life threatening andrequire emergency medical care. How is it diagnosed? Your healthcare provider will ask about your symptoms and medical history and examine you. Tests may include: An electrophysiology study, which uses tiny wires put into your heart through a vein to look at theelectrical paths in your heart An ECG (also called an EKG or electrocardiogram), which measures and records your heartbeat. You may have an ECG while you are resting or while you exercise on a treadmill. You may also be asked to wear a small portable ECG monitor for a few days or longer. How is it treated? Treatment depends on the type of heart block you have and the cause. Often heart block does not need to be treated. If the block is caused by medicine that you are taking, your healthcare provider may want you to stop taking the medicine. You may be given other medicines to replace the medicine that caused the block. If the block is severe, you may need surgery to put a pacemaker under the skin of your chest. A pacemaker is a battery-powered device that helps your heart beat in a healthy rhythm. How can I take care of myself? Follow your treatment plan. Be sure to take all medicines as prescribed by your healthcare provider. Try to have a heart-healthy lifestyle: Eat a healthy diet. Try to keep a healthy weight. If you are overweight, lose weight. Stay fit with the right kind of exercise for you. Learn ways to manage stress. If you smoke, try to quit. Talk to your healthcare provider about ways to quit smoking. If you want to drink alcohol, ask your healthcare provider how much is safe for you to drink. Try to get at least 7 to 9 hours of sleep each night. Ask your provider: How and when you will hear your test results How long it will take to recover What activities you should avoid and when you can return to your normal activities How to take care of yourself at home What symptoms or problems you should watch for and what to do if you have them Make sure you know when you should come back for a checkup. How can I help prevent heart block? There is no specific way to prevent heart block, but a healthy lifestyle can help prevent heart disease, which can cause heart block. Developed by [employer]. Published by [employer]. Copyright 2014 [employer] and/or one of its subsidiaries. All rights reserved. documented in this encounterTrumbull [facility] Hospital04-24-[facility] History of Present illness Narrative* Denice Marrufo APRN.LOIN TRIMMER - 03/18/2024 3:00 PM EDT Images from the original note were not included. [facility] Cardiology Electrophysiology PRIMARY CARE PHYSICIAN: Helen Lainez [id number] [facility] [place] [address] CHIEF COMPLAINT: Cardiovascular medicine follow-up for defibrillator and upcoming procedure. HISTORY OF PRESENT ILLNESS: Mr. Whittington is a 78 year old male who presents today for follow-up regarding defibrillator and upcoming procedure. The patient has a past medical history significant for essential hypertension, cardiomyopathy with severe LV systolic dysfunction, persistent atrial fibrillation/atypical atrial flutter, on oral anticoagulation, single-chamber ICD implanted 2013, upgrade to [employer] P[employer]GER [employer]ENT-D system in 2018 with concurrent AV node catheter ablation, PPG replacement in 2022, he was referred to Dr. Jaime for right ventricular lead noise resulting in pacing inhibition noted during device interrogation. Impedances and sensing have been stable. 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 He was seen by Dr. Jaime 02/20/2024, reported feeling reasonably well, experiences occasional dizziness. Had not had ICD shock, chest pain or syncope. Maintained on oral anticoagulation and amiodarone for history of atrial fibrillation. Echo in early 2022 showed LVEF 30% stress test 10/2021 showed apical scar with no reversibility and LVEF 31%. His device is a [employer] system with [employer] RV, RAand LV leads. Devices in the subpectoral location due to low BMI. He was recommended to undergo right ventricular lead extraction/reimplantation, and instructed to hold anticoagulation 72 hours prior to procedure. Interval History: The patient presents today to update his history and physical prior to upcoming procedure with Dr. Jaime 03/26/2024. He reports feeling well at today's appointment, denies any recent illness or fevers. He does have some ongoing shortness of breath which he states is unchanged. He has intermittent dizziness which she attributes to the malfunctioning pacemaker lead, denies syncope. He denies chest discomfort, pain at the left upper chest ICD site or palpitations. I reminded him he will need to hold Eliquis 3 days prior to procedure, last dose will be 03/22/2024. Afterdoing a full review of his medications, it was discovered he was recently started on Jardiance, he reports about the beginning of this year, I have instructed him to also begin holding the Jardiance 3 days prior to procedure with the last dose 03/22/2024. I have reminded him he will be notified between 2-5 PM the day prior to procedure, he will be n.p.o. after midnight, may take his medications with a sip of water in the morning. He is ready to proceed with right ventricular ICD lead extr action with reimplant, as scheduled with Dr. Jaime 03/26/2024. All questions answered to his apparent satisfaction. PAST MEDICAL HISTORY Diagnosis Date Acid reflux Allergy, unspecified not elsewhere classified Aneurysm, thoracic aortic (HCC) Arrhythmia Arthritis neck Atypical atrial flutter (HCC) 11/12/2023 Benign neoplasm of colon Cardiac resynchronization therapy defibrillator ([employer]ENT-D) in place Chronic obstructive pulmonary disease (COPD) ([facility]) Congenital anomalies of pancreas Coronary artery disease Essential hypertension Hyperlipemia ICD (implantable cardioverter-defibrillator) in place Longstanding persistent atrial fibrillation ([facility]) MVP (mitral valve prolapse) Other and unspecified hyperlipidemia Other premature beats Other specified forms of chronic ischemic heart disease Persistent atrial fibrillation (HCC) 11/12/2023 PMH - PAST MEDICAL HISTORY OF dilated cardiolyopathy Snoring Stroke risk 11/12/2023 SVT (supraventricular tachycardia) ([facility]) Syncope VT (ventricular tachycardia) ([facility]) PAST SURGICAL HISTORY Procedure Laterality Date AV KYUNG ABLATION 09/30/[address] Jaime at [facility] CATARACT EXTRACTION HX Bilateral COLONOSCOPY FLX DX W/COLLJ SPEC WHEN PFRMD 02/16/2009 Colonoscopy COLONOSCOPY FLX DX W/COLLJ SPEC WHEN PFRMD 09/29/2010 [facility] COLONOSCOPY FLX DX W/COLLJ SPEC WHEN PFRMD 08/16/2014 Colonoscopy [employer]ENT-D/TRAV[employer]IGHT [employer] PASSENGER AGENT-P IMPLANT Left 09/30/2019 Upgrade single ICD to [employer]ENT-D with Dr. Barboza at [facility] ESOPHAGOGASTRODUODENOSCOPY TRANSORAL DIAGNOSTIC 02/07/2015 EGD ESOPHAGOGASTRODUODENOSCOPY TRANSORAL DIAGNOSTIC 05/17/2015 EGD [facility] out pt HEART SURGERY HX LEAD,PACEMAKER/DEFIB COMBO 03/11/2004 NEPHRECTOMY PARTIAL 07/02/2018 PAST SURGICAL HISTORY OF surgery on groin area lymph gland SIGMOIDOSCOPY FLX DX W/COLLJ SPEC BR/WA IF PFRMD 01/12/2016 Sigmoidoscopy, flexible TONSILLECTOMY PRIMARY/SECONDARY <AGE 12 Tonsillectomy TOTAL KNEE REPLACEMENT Left Social History Tobacco Use Smoking status: Former Packs/day: .5 Types: Cigarettes Quit date: 2019 Years since quittin.3 Smokeless tobacco: Never Tobacco comments: less than a pack per day Substance Use Topics Alcohol use: No Drug use: Never Family History Problem Relation Age of Onset other (pancreas problems [Other]) Mother Heart disease Father Heart disease Sister Heart disease Brother ALLERGIES No Known Allergies MEDICATIONS: empagliflozin (JARDIANCE) 25 mg tablet Take 12.5 mg by mouth daily with breakfast. lactulose 10 gram/15 mL (15 mL) soln Take 1 Tablespoonful by mouth two times a day. apixaban (ELIQUIS) 5 mg tab(s) Take 1 tablet by mouth two times a day. Continue holding Eliquis, restart 11/15/2023. sacubitril-valsartan (ENTRESTO) 97-103 mg tablet Take 1 tablet by mouth two times a day. metoprolol succinate ER (TOPROL XL) 25 mg 24 hr tablet Take 12.5 mg by mouth once daily. vit C/E/Zn/coppr/lutein/zeaxan (PRESERVISION AREDS-2 ORAL) Take 2 tablets by mouth once daily. amiodarone (PACERONE) 200 mg tablet Take 200 mg by mouth once daily. SIMVASTATIN 20 mg ORAL tablet Take 20 mg by mouth daily at bedtime. REVIEW OF SYSTEMS: Review of Systems Constitutional: Negative for chills, diaphoresis and fever. HENT: Negative for nosebleeds. Respiratory: Positive for shortness of breath (not new, unchanged). Negative for cough, hemoptysis,sputum production and wheezing. Cardiovascular: Negative for chest pain, palpitations, orthopnea, leg swelling and PND. Gastrointestinal: Negative for abdominal pain, blood in stool, constipation, diarrhea, heartburn, nausea and vomiting. Genitourinary: Negative for dysuria, frequency, hematuria and urgency. Musculoskeletal: Negative for falls and myalgias. Neurological: Positive for dizziness and tremors. Negative for loss of consciousness and headaches. Endo/Heme/Allergies: Bruises/bleeds easily. PHYSICAL EXAMINATION: BP 127/72 Pulse 70 Ht 6' 3 (1.91m) Wt 155 lb (70.3kg) SpO2 95% BMI 19.37 kg/(m^2). Physical Exam Vitals and nursing note reviewed. Constitutional: General: He is not in acute distress. Appearance: He is not diaphoretic. HENT: Head: Normocephalic and atraumatic. Neck: Vascular: No JVD. Cardiovascular: Rate and Rhythm: Normal rate and regular rhythm. Occasional Extrasystoles are present. Pulses: Radial pulses are 2+ on the right side and 2+ on the left side. Heart sounds: S1 normal and S2 normal. No gallop. Comments: Left upper chest ICD site without signs of infection, erythema or swelling. Device is prominent. Pulmonary: Effort: Pulmonary effort is normal. No respiratory distress. Breath sounds: Normal breath sounds. No wheezing or rales. Chest: Chest wall: No tenderness. Abdominal: General: Bowel sounds are normal. Palpations: Abdomen is soft. Musculoskeletal: General: Normal range of motion. Cervical back: Neck supple. Right lower leg: No edema. Left lower leg: No edema. Skin: General: Skin is warm and dry. Nails: There is no clubbing. Neurological: Mental Status: He is alert and oriented to person, place, and time. Psychiatric: Mood and Affect: Mood and affect normal. Behavior: Behavior normal. CARDIOVASCULAR MEDICINE TESTING: I have personally reviewed the Electrocardiogram: 03/18/2024 -AV dual paced rhythm with frequent PVCs, 74 bpm, KY 190 ms, QRS 170 ms, QT/QTc 486/539 ms. PLAN AND RECOMMENDATIONS: ASSESSMENT/PLAN: 1. Cardiac resynchronization therapy defibrillator (TR[employer] PASSENGER AGENT-D) in place - ICD9: V45.02, ICD10: Z95.810 (primary diagnosis) 2. Implanted defibrillator electrode lead fracture, subsequent encounter - ICD9: V58.89, ICD10: T82.190D -single-chamber ICD implanted in 2013, upgrade to [employer]GER [employer]ENT-D system in 2018 with concurrent AV kyung ablation, generator replacement in 2022, the device is [employer] system with [employer] RV, RA and LV leads. Recent device check noted right ventricular lead noise resulting in pacing inhibition, he was recommended to undergo extraction/reimplant of right ventricular ICD lead, the device is located subpectoral due to BMI of 19. He is ready to proceed with above outlined procedure, as scheduled with Dr. Jaime 03/26/2024. He was instructed to hold Jardiance and Eliquis 3 days prior to p rocedure, last dose will be 03/22/2024. Follow-up to be arranged after device procedure. He will call in the meantime with any questions or concerns, patient verbalizes understanding. 3. Persistent atrial fibrillation (HCC) - ICD9: 427.31, ICD10: I48.19 4. Atypical atrial flutter (HCC) - ICD9: 427.32, ICD10: I48.4 5. CHB (complete heart block) (HCC) - ICD9: 426.0, ICD10: I44.2 6. S/P AV (atrioventricular) kyung ablation - ICD9: V45.89, ICD10: Z98.890 - History of persistent atrial fibrillation/flutter, underwent AV kyung catheter ablation in 2019 during ICD upgrade to a TRA[employer]ASSENGER AGENT-D system. Has been managed with amiodarone, metoprolol succinate 12.5 mg daily and anticoagulated with Eliquis, Eliquis will need to be on hold for upcoming procedure, see above. 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 Whilebeing treated with amiodarone, he should have screening for the potential toxic organ side effects, particularly the liver and thyroid. Typically this involves blood testing for thyroid function (TSH) and liver function (AST, ALT) about every 6 months. Evaluation of pulmonary function, as with chest x-ray or pulmonary function tests, are typically reserved for patients with relevant symptoms. A yearly complete eye exam is also recommended. Amiodarone is managed by his local independent living specialist at [facility]. 8. residential (current) use of anticoagulants - ICD9: V58.61, ICD10: Z79.01 9. At risk for stroke - ICD9: V15.89, ICD10: Z91.89 -persistent atrial fibrillation/flutter, currently taking Eliquis 5 mg twice daily, will begin holding Eliquis for upcoming procedure, see above. No overt signs of bleeding, risk: Benefit seems favorable. CHADS2-Vasc Score Breakdown 4 Total Score 2 Age >= 75 years old 1 History of hypertension 1 History of vascular disease Return for To be arranged after upcoming procedure. Denice Marrufo APRN.JESUS Medical Decision Making: Problems: Moderate: 1+ chronic illnesses with change Data: Unique source(s) for external note(s) reviewed: 1 Unique test(s) ordered: 1 Risk: Moderate: Drug management and Decision on minor surgery w/ risk factors Medical Decision Making Level: 4 - Moderate The above note was partially created using a dictation recognition software. A reasonable attempt has been made to correct any errors. documented in this encounterTr[facility]04-[facility] Nurse Note* Kiana Westbrook MA - 03/18/2024 2:50 PM EDT Patient denies cardiac complaints or symptoms. [facility] Note* Kiana Westbrook MA - 03/18/2024 2:50 PM EDT Patient denies cardiac complaints or symptoms. documented in this encounterTrumbull [facility]04-16-2024 Miscellaneous Notes* Telephone Encounter - Kaz Cancino RN - 03/10/2024 1:03 PM EDT Pt's name has been added to [facility] procedure board. Kaz Cancino RN * Telephone Encounter - Zeenat Steen - 03/10/2024 12:33 PM EDT Patient is scheduled for an Extraction/Reimplant on 03/[address] Jaime. The hospital will call the day before between 2-5pm with your arrival time. You should not eat or drink after midnight the day before the procedure. You will need a meals on wheels driver when released from the hospital and you will stay overnight for observation. You should continue to take medications as prescribed the morning of the procedure with just a sip of water but hold Eliquis x 72 hrs. H&P update on 03/18 at 3pm with Sondra Marrufo [address] [place] [address] Spoke with Benito Whittington on March 10, 2024. Informed of instructions as stated above. Patient verbalized understanding. Zeenat Steen documented in this encounterTrumbull [facility] Hospital04-05-2024 Discharge summary Author Jayy Zhao [facility] February 28, 2024 7:19pm Note Date/Time February 28, 2024 6:15 pm [facility] Medical Records Department [address] [place] [address] Emergency Department Summary 02/28/24 MR#: [id number] Acct: [id number] Name: LIZBENITO Pat Rep #:[id number] : 1945 78 From: Jayy Arellano PCP: Dr. Helen Lainez MD Status:REG ER Location: ED HPI History of Present Illness Chief Complaint: Lower Extremity Injury [facility] Medical History Ambulates with cane Anemia Arthritis Cardiology follow-up encounter Cardiomyopathy Chest pain Colitis Depression Essential hypertension Gastric reflux GERD (gastroesophageal reflux disease) Hyperlipidemia Hypertension Hypokalemia ICD (implantable cardioverter-defibrillator) in place Long-term use of high-risk medication Loose, teeth MVP (mitral valve prolapse) Near syncope Nonrheumatic mitral (valve) prolapse Pacemaker Pre-op evaluation Premature ventricular contraction Shortness of breath on exertion SVT (supraventricular tachycardia) Syncope Thoracic aortic aneurysm Thoracic aortic aneurysm without rupture Ventricular tachycardia Wears glasses Home Medications albuterol sulfate 90 mcg/actuation aerosol inhaler (Ventolin HFA) 2 puff inhalation Q4H PRN PRN SOB &/OR WHEEZING #0 grams 02/19/22 [Rx Last Taken Unknown] apixaban 5 mg tablet (Eliquis) 5 mg PO BID #180 tabs 02/27/23 [Rx Last Taken Unknown] simvastatin 20 mg tablet 20 mg PO QHS cholesterol #90 tabs 03/20/23 [Rx Last Taken Unknown] sacubitril 24 mg-valsartan 26 mg tablet (Entresto) 1 tab PO BID #60 tabs 05/09/23 [Rx Last Taken Unknown] vit C 250 mg-vit E 200 unit-zinc ox 12.5 nm-vnbwtb-zknvks-zeax capsule (ICaps AREDS2) 1 cap PO BID 07/30/23 [History Last Taken Unknown] metoprolol succinate 25 mg tablet,extended release 24 hr 12.5 mg (1/2 x 25 mg) PO DAILY #45 tabs 10/15/23 [Rx Last Taken Unknown] venlafaxine 37.5 mg tablet 37.5 mg PO DAILY 12/13/23 [History Last Taken Unknown] empagliflozin 25 mg tablet (Jardiance) 12.5 mg PO DAILY 12/20/23 [History Last Taken Unknown] amiodarone 200 mg tablet 200 mg PO DAILY Pt awaiting mail in RX, he is OUT of medication #30 tabs 12/30/23 [Rx Last Taken Unknown] Allergy/AdvReac Type Severity Reaction Status Date / Time No Known Allergies Allergy Verified 02/07/24 16:35 Family History Father Heart disease Sister Heart disease Brother Heart disease Surgical History History of bilateral cataract extraction History of partial nephrectomy (07/02/18) History of tonsillectomy History of total left knee replacement Hx of atrioventricular node ablation Presence of cardiac defibrillator Social History household members: none Smoking Status: Former smoker how long ago did patient quit smokin years ago alcohol intake: never substance use type: does not use caffeine: Yes Type: coffee Number of servings: 2 EXAM Physical Exam Const Vital Signs: 02/28/24 18:06 02/28/24 19:06 Temperature 98.3 F 98.1 F Temperature Source Temporal Pulse Rate 73 69 Respiratory Rate 14 16 Blood Pressure 127/77 H 116/68 Blood Pressure Mean 93 84 Pulse Ox 99 99 Oxygen Delivery Method Room Air [facility] Narrative Medical decision making narrative: HISTORY OF PRESENT ILLNESS: 78-year-old male presents with left knee pain. States he had his knee replaced 1 year ago. States approximate hour ago the knee came apart. Notes mild discomfort. Patient denies active cancer, being bedridden for greater than 3 days, denies unilateral leg swelling, denies any varicose veins, denies any calftenderness, denies tenderness along deep venous system. Denies major surgery within 12 weeks, recent paralysis, previous DVT. REVIEW OF SYSTEMS: Pertinent positives: Knee pain Pertinent negatives: Numbness, tingling, loss sensation PHYSICAL EXAM: Nursing triage notes reviewed, Vital signs reviewed Constitutional: please see mdm Extremities: No edema, full range of motion in knee flexion extension Neuro: Intact sensation L1-S1 dermatomal distributions. Intact 5/5 strength in hip flexion (T12-L3). Knee extension (L2-L4). Ankle dorsiflexion (L4-L5). Ankle plantar flexion (S1). Great toe extension (L5). 2+ patellar and AchillesDTRs. Skin: No rash or lesions noted, no crepitus bullae fluctuance induration signs of cellulitis or abscess MEDICAL DECISION MAKING: Chief Complaint: Knee pain External records reviewed: Imaging reviewed: Left knee x-ray from 2021 shows left knee osteoarthritis Factors affecting care: History of knee replacement [facility] Narrative: Patient was hemodynamically stable, afebrile and nontoxic-appearing. Left lowerextremity neurovascularly intact. Compartments are soft. Intact quad tendon complex. No obvious deformity to suggest dislocation noted. No signs of effusion, redness, warmth to suggest septic arthritis. I considered the following differential diagnosis: Fracture, dislocation, hardware failure, septic arthritis I obtained an x-ray of the left knee ALL IMAGES (IF OBTAINED) HAVE BEEN PERSONALLY REVIEWED AND INTERPRETED BY MYSELF. X-ray of the left knee was read reviewed myself shows evidence of obvious bony abnormality. The patient and/or family, caregivers express understanding. The patient and/orfamily, caregivers agrees with the plan. Shared decision making: I will have a discussion with the patient and or visitors regarding risk/benefits of further testing or admission. They will be made aware of of the risk/benefits inherent in this decision they will be given the opportunity to voice understanding. Total critical care time today provided was at least 0 minutes. This excludes separately billable procedures. Critical care time (if documented) is secondary to the patient having high probability of clinically significant/life threatening deterioration in the patient's condition which required my urgent intervention. Impression: 1. Left knee pain Dispo: Discharge home This note was generated with Stream5 dictation software. It may contain incorrectwords, spelling, and punctuation that were not noted in review of the chart prior to signing. Radiography Diagnostic Testing: Clinical Impression(s) from Imaging Studies Knee X-Ray 02/28/24 18:18 IMPRESSION: No acute findings in the left knee. Electronically Signed: Gutierrez Causey MD at 18:35 EDT Reading Location ID and State: [facility] / [place] , Service support , Discharge Plan Triage Chief Complaint: Lower Extremity Injury ED Provider: Jayy Zhao Dx/Rx/DC Orders Clinical Impression: Acute knee pain, History of arthroplasty of knee Instructions: ED Knee Pain of Uncertain Cause, ED RICE Prescriptions: No Action ICaps AREDS2 250 mg-200 unit -12.5 mg-1 mg capsule 1 cap PO BID venlafaxine 37.5 mg tablet 37.5 mg PO DAILY Hold Instructions: Pt has been DC'd albuterol sulfate [Ventolin HFA] 90 mcg/actuation Hfa Aerosol Inhaler 2 puff inhalation Q4H PRN PRN (Reason: SOB &/OR WHEEZING) Qty: 0 0RF Eliquis 5 mg tablet 5 mg PO BID Qty: 180 4RF simvastatin 20 mg tablet 20 mg PO QHS Qty: 90 3RF Entresto 24-26 mg tablet 1 tab PO BID Qty: 60 0RF metoprolol succinate 25 mg tablet extended release 24 hr 12.5 mg PO DAILY Qty: 45 3RF Jardiance 25 mg tablet 12.5 mg PO DAILY amiodarone 200 mg tablet 200 mg PO DAILY Qty: 30 0RF Rx Instructions: heart rate Primary Care Provider: Helen Lainez Referrals: Helen Lainez MD [Primary Care Provider] - Activity Restrictions/Additional Instructions: Thank you for trusting us with your care today! Please take Tylenol (2 pills, 650 mg), ibuprofen (2 pills, 400 mg) every 6 hoursas needed for pain and fever control. Please return to the emergency department if your symptoms change or worsen. Please follow with your primary care physician and/or your orthopedic surgeon for further outpatient evaluation and management. Disposition Disposition: Home, Self Care What to do if you have Problems For any increased pain, shortness of breath, bleeding, nausea or vomiting, chestpain, or any unexpected problems, contact your Primary Care Provider. Call [facility] ([phone]) or report to the closest Emergency Room. Call 911 if necessary. 02/28/241918 <Electronically signed by Jayy Zhao DO> Cosigner Signature (if applicable): CC: Dr. Helen Lainez MD ~ Signed [facility] Work Phone: 1(241) 853-489903-28-2024 NoteHNO ID: [id number] Author: MARCO JAIME MD Service: ? Author Type: Physician Type: Progress Notes Filed: 02/20/2024 12:22 Note Text: Heart [facility] V[facility] [place] [facility] SECTION OF CARDIAC PACING and ELECTROPHYSIOLOGY OUTPATIENT VISIT DATE February 20, 2024 OUTPATIENT VISIT TYPE ESTABLISHED PRIMARY CARE PHYSICIAN: Helen Lainez [address] [facility] [place] [address] Referring physician: Anupam Reece MD, [place], [place]. HISTORY OF PRESENT ILLNESS: 78-year-old male with history of essential hypertension, cardiomyopathy with severe LV systolic dysfunction, persistent atrial fibrillation/atypical atrial flutter, and oral anticoagulation, single-chamber ICD implanted in 2013, upgrade to [employer]-D in 2018 with concurrent AV node ablation, PPG replacement in 2022, referred for right ventricular lead noise resulting in pacing inhibition noted during recent interrogation. Impedances and sensing have been stable. 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 Mr. Whittington presents for an office visit. He reports feeling reasonably well, although has occasional dizziness. Denies ICD shocks, chest pain, or syncope. He is maintained on oral anticoagulation and on amiodarone for history of atrial fibrillation. According to the device interrogation, he was in atrial fibrillation till December 2023 and has been in sinus since then. Echo in early 2022 showed LVEF of 30%. The device is [employer] system with Medtronic RV, RA, and LV leads. Device is in the subpectoral location due to BMI of 19. ECG shows A-BiV paced rhythm at 75 beats minute. Pharmacologic nuclear stress test showed apical scar with no reversibility and EF of 31%. PAST MEDICAL HISTORY Diagnosis Date Acid reflux Allergy, unspecified not elsewhere classified Aneurysm, thoracic aortic (HCC) Arrhythmia Arthritis neck Atypical atrial flutter (HCC) 11/12/2023 Benign neoplasm of colon Cardiac resynchronization therapy defibrillator ([employer]-D) in place Chronic obstructive pulmonary disease (COPD) ([facility]) Congenital anomalies of pancreas Coronary artery disease Essential hypertension Hyperlipemia ICD (implantable cardioverter-defibrillator) in place Longstanding persistent atrial fibrillation ([facility]) MVP (mitral valve prolapse) Other and unspecified hyperlipidemia Other premature beats Other specified forms of chronic ischemic heart disease Persistent atrial fibrillation ([facility]) 11/12/2023 PMH - PAST MEDICAL HISTORY OF dilated cardiolyopathy Snoring Stroke risk 11/12/2023 SVT (supraventricular tachycardia) ([facility]) Syncope VT (ventricular tachycardia) ([facility]) MEDICATIONS: apixaban (ELIQUIS) 5 mg tab(s) Take 1 tablet by mouth two times a day. Continue holding Eliquis, restart 11/15/2023. sacubitril-valsartan (ENTRESTO) 97-103 mg tablet Take 1 tablet by mouth two times a day. metoprolol succinate ER (TOPROL XL) 25 mg 24 hr tablet Take 12.5 mg by mouth once daily. vit C/E/Zn/coppr/lutein/zeaxan (PRESERVISION AREDS-2 ORAL) Take 2 tablets by mouth once daily. amiodarone (PACERONE) 200 mg tablet Take 200 mg by mouth once daily. SIMVASTATIN 20 mg ORAL tablet Take 20 mg by mouth daily at bedtime. omega-3s/dha/epa/fish oil/D3 (VITAMIN-D + OMEGA-3 ORAL) Take by mouth. One tab once a week (Patient not taking: Reported on 02/20/2024) Review of Systems Constitutional: Negative for fatigue. HENT: Negative for hearing loss. Respiratory: Positive for shortness of breath. Cardiovascular: Negative for chest pain and palpitations. Gastrointestinal: Negative for abdominal pain. Endocrine: Negative for cold intolerance. Genitourinary: Negative for hematuria. Skin: Negative for pallor. Neurological: Negative for syncope. Psychiatric/Behavioral: The patient is not nervous/anxious. PHYSICAL EXAMINATION: BP 95/58 (BP Site: Left Arm, BP Position: Sitting, BP Cuff Size: Regular Adult) Pulse 71 Ht 6' 3 (1.905 m) Wt 148 lb (67.1 kg) SpO2 94% BMI 18.50 kg/m? BP w/Orthostatic Vitals Date and Time Orthostatic BP Orthostatic Pulse BP Pulse BP Position BP Site BP Cuff Size 02/20/24 1050 -- -- 95/58 71 Sitting Left Arm Regular Adult Physical Exam Constitutional: Appearance: Normal appearance. HENT: Head: Normocephalic and atraumatic. Eyes: Conjunctiva/sclera: Conjunctivae normal. Cardiovascular: Rate and Rhythm: Normal rate and regular rhythm. Comments: Device prominent in the pocket. Pulmonary: Effort: Pulmonary effort is normal. No respiratory distress. Breath sounds: No stridor. Skin: General: Skin is dry. Coloration: Skin is not pale. Neurological: Mental Status: He is alert and oriented to person, place, and time. Psychiatric: Mood and Affect: Mood normal. I have personally reviewed the Electrocardiogram. Assessment PLAN AND RECOMMENDATIONS: 78-year-old male with cardiomyopathy, taras (more content not included)...[facility]03-28-2024 NoteHNO ID: [id number] Author: OMA CHERRY MA Service: ? Author Type: Religious Studies Professor Type: Progress Notes Filed: 02/20/2024 12:22 Note Text: No cardiac complaints today. [facility]ma Cherry [facility] Discharge summary Author Yoko Bonilla [facility] February 07, 2024 11:18pm Note Date/Time February 07, 2024 8:0 6pm [facility] Medical Records Department [address] [place] [address] Emergency Department Summary 02/07/24 MR#: [id number] Acct: [id number] Name: BENITO WHITTINGTON Rep #:[id number] : 1945 78 From: Liam Carrillo DO PCP: Dr. Helen Lainez MD Status:REG ER Location: ED ADDENDUM by Dr. Yoko Bonilla MD on 02/07/24 at 2318 Patient signed out to me pending call from the [facility]'s rep. I spoke with him and he had reviewed the patient's interrogation. He states that everything is functioning absolutely appropriately and he sees no problems with the pacemaker/defibrillator. Patient be discharged per previous instructions. 02/07/24 2318<Electronically signed by Yoko Bonilla MD> Cosigner Signature (if applicable): cc: Dr. Helen Lainez MD ~* Signed HPI History of Present Illness Chief Complaint: Dizziness Narrative Narrative: Supple 78-year-old male presenting with lightheadedness. He states this is a chronic issue but has been worse over the last couple of weeks. Patient has history of A-fib, SVT,, cardiomyopathy and he is presenting with lightheadedness. He states he had his pacemaker interrogated yesterday as he was having lightheadedness. Patient states that after he had his pacemaker checked open he was told if he has any other symptoms to come to the emergency room. He states initially they thought they might send him to the emergency room from the pacemaker check and even question whether they would send him in to [place] where his independent living specialist is. Patient states that he still continues to feel lightheaded although he has no episode of syncope. Denies chest pain. Is not short of breath. No fevers or chills. He has not missed any medications. He states his last echocardiogram was probably within the last year but he is unsure. Patient states he was able to drive home yesterday over an hour and he also was able to drive to the ER today. [facility] Medical History Ambulates with cane Anemia Arthritis Cardiology follow-up encounter Cardiomyopathy Chest pain Colitis Depression Essential hypertension Gastric reflux GERD (gastroesophageal reflux disease) Hyperlipidemia Hypertension Hypokalemia ICD (implantable cardioverter-defibrillator) in place Long-term use of high-risk medication Loose, teeth MVP (mitral valve prolapse) Near syncope Nonrheumatic mitral (valve) prolapse Pacemaker Pre-op evaluation Premature ventricular contraction Shortness of breath on exertion SVT (supraventricular tachycardia) Syncope Thoracic aortic aneurysm Thoracic aortic aneurysm without rupture Ventricular tachycardia Wears glasses Home Medications albuterol sulfate 90 mcg/actuation aerosol inhaler (Ventolin HFA) 2 puff inhalation Q4H PRN PRN SOB &/OR WHEEZING #0 grams 02/19/22 [Rx Last Taken Unknown] apixaban 5 mg tablet (Eliquis) 5 mg PO BID #180 tabs 02/27/23 [Rx Last Taken Unknown] simvastatin 20 mg tablet 20 mg PO QHS cholesterol #90 tabs 03/20/23 [Rx Last Taken Unknown] sacubitril 24 mg-valsartan 26 mg tablet (Entresto) 1 tab PO BID #60 tabs 05/09/23 [Rx Last Taken Unknown] vit C 250 mg-vit E 200 unit-zinc ox 12.5 eo-frdsdy-gdobds-zeax capsule (ICaps AREDS2) 1 cap PO BID 07/30/23 [History Last Taken Unknown] metoprolol succinate 25 mg tablet,extended release 24 hr 12.5 mg (1/2 x 25 mg) PO DAILY #45 tabs 10/15/23 [Rx Last Taken Unknown] venlafaxine 37.5 mg tablet 37.5 mg PO DAILY 12/13/23 [History Last Taken Unknown] empagliflozin 25 mg tablet (Jardiance) 12.5 mg PO DAILY 12/20/23 [History Last Taken Unknown] amiodarone 200 mg tablet 200 mg PO DAILY Pt awaiting mail in RX, he is OUT of medication #30 tabs 12/30/23 [Rx Last Taken Unknown] Allergy/AdvReac Type Severity Reaction Status Date / Time No Known Allergies Allergy Verified 02/07/24 16:35 Family History Father Heart disease Sister Heart disease Brother Heart disease Surgical History History of bilateral cataract extraction History of partial nephrectomy (07/02/18) History of tonsillectomy History of total left knee replacement Hx of atrioventricular node ablation Presence of cardiac defibrillator Social History household members: none Smoking Status: Former smoker how long ago did patient quit smokin years ago alcohol intake: never substance use type: does not use caffeine: Yes Type: coffee Number of servings: 2 ROS ROS ED Constitutional Constitutional ED: Denies chills, fever(s) or sweats Eyes Eyes: Denies blurry vision or change in vision ENT ENT ED: Denies ear pain or sore throat Cardiovascular Cardiovascular: Reports other Details: Lightheadedness and near syncope ; Denies chest pain, palpitations or racing heartbeat Respiratory/Chest Respiratory/Chest: Denies cough, dyspnea or sputum Gastrointestinal Gastrointestinal: Denies abdominal pain, constipation, diarrhea, nausea or vomiting Genitourinary Genitourinary ED: Denies dysuria, hematuria or urinary frequency Musculoskeletal Musculoskeletal: Denies arthralgias, myalgias or neck pain Integumentary Denies abscess, Abrasions or rash Neurologic Neurologic: Denies headache(s), paresthesias or weakness Psychiatric Psychiatric: Denies anxiety, depression, suicidal ideation or suicidal thoughts Endocrine Endocrinology: Denies polydipsia or polyuria EXAM Physical Exam Const Vital Signs: 02/07/24 16:34 02/07/24 18:16 02/07/24 18:16 Temperature 98.4 F Temperature Source Temporal Pulse Rate 70 71 Pulse Rate [Lying] Pulse Rate [Sitting (for 1 minute prior to obtaining)] Pulse Rate [Standing (for 1 minute prior to obtaining)] Respiratory Rate 15 20 H Respiratory Effort Respiratory Pattern Blood Pressure 114/74 133/67 H Blood Pressure [Lying] Blood Pressure [Sitting (for 1 minute prior to obtaining)] Blood Pressure [Standing (for 1 minute prior to obtaining)] Blood Pressure Mean 87 89 Blood Pressure Mean [Lying] Blood Pressure Mean [Sitting (for 1 minute prior to obtaining)] Blood Pressure Mean [Standing (for 1 minute prior to obtaining)] Pulse Ox 100 98 96 Oxygen Delivery Method Room Air Room Air Room Air 02/07/24 18:16 02/07/24 18:33 02/07/24 19:28 Temperature Temperature Source Pulse Rate 71 Pulse Rate [Lying] 70 Pulse Rate [Sitting (for 1 minute prior to obtaining)] 72 Pulse Rate [Standing (for 1 minute prior to obtaining)] 81 Respiratory Rate 13 Respiratory Effort Normal Non-Labored Respiratory Pattern Normal Blood Pressure 121/71 H Blood Pressure [Lying] 117/61 Blood Pressure [Sitting (for 1 minute prior to obtaining)] 131/73 H Blood Pressure [Standing (for 1 minute prior to obtaining)] 118/70 Blood Pressure Mean 87 Blood Pressure Mean [Lying] 79 Blood Pressure Mean [Sitting (for 1 minute prior to obtaining)] 92 Blood Pressure Mean [Standing (for 1 minute prior to obtaining)] 86 Pulse Ox 98 Oxygen Delivery Method Room Air 02/07/24 20:00 02/07/24 22:00 Temperature Temperature Source Pulse Rate 80 72 Pulse Rate [Lying] Pulse Rate [Sitting (for 1 minute prior to obtaining)] Pulse Rate [Standing (for 1 minute prior to obtaining)] Respiratory Rate 16 17 Respiratory Effort Respiratory Pattern Blood Pressure 153/91 H 107/72 Blood Pressure [Lying] Blood Pressure [Sitting (for 1 minute prior to obtaining)] Blood Pressure [Standing (for 1 minute prior to obtaining)] Blood Pressure Mean 111 83 Blood Pressure Mean [Lying] Blood Pressure Mean [Sitting (for 1 minute prior to obtaining)] Blood Pressure Mean [Standing (for 1 minute prior to obtaining)] Pulse Ox 99 99 Oxygen Delivery Method Room Air Room Air Positive well nourished General Appearance ED: NAD; Negative for pallor HEENT Reports moist mucous membranes trauma Eyes PERRL and EOMs intact bilaterally Chest Wall inspection of chest normal Resp normal respiratory effort and clear to auscultation bilaterally Auscultation: Negative for rales, rhonchi or wheezes Cardio regular rate and regular rhythm GI normal to inspection, nondistended, normoactive bowel sounds Neuro oriented x3 and CN's II-XII intact bilaterally Sensorium / Orientation: alert Psych Attitude: agitated Skin no rashes or lesions noted and no wounds General Skin Exam: Negative for jaundice or pallor MDM MDM MDM Narrative Medical decision making narrative: Patient patient presenting with lightheadedness. This is a longstanding issue however the patient states is worse over the last couple weeks. I did review the patient's interrogation which shows that he had some RV noise with inhibition of pacing and ventricle and RV and LV lead. The threshold was changed and so was the amplitude and after doing isometrics in our maneuvers there was no reproduction of the noise except except there was no noted inhibition of the pacing noted after adjustments were made. Nothing was inhibited with deep inspiration as it was previously noted. Patient states he was told that if he has any more lightheadedness come to the ER. Denies chest pain. Differential includes ACS, CHF, dysrhythmia, A-fib, a flutter, dehydration, anemia, electrolyte abnormalities. CBC was obtained to assess white blood cell count, hemoglobin, platelets. BMP to assess renal function and electrolytes. Blood work all within normal limits. Troponin is normal. Renal function at baseline. Discussed with cardiology [facility] who did not feel the patient needed to come there as his EKG is paced and his rhythm here has been paced. We reviewed the read/interrogation ofhis pacemaker which shows there were no abnormalities currently noted. Cardiology recommended that I have his pacemaker reinterpreted and then call [facility] to make sure there is no issues with that and if this is normal he can be discharged home. Patient will be signed out to incoming ED physician formonitoring until staging calls back. Discussed discussed at length with him. Simonmend that if he still feeling lightheaded he should not be driving. He acknowledged understanding patient. Impression: 1. Lightheadedness 2. History of pacemaker Lab Data Labs: Laboratory Results - last 24 hr 02/07/24 17:40 WBC 5.6 RBC 4.74 Hgb 14.5 Hct 45.3 MCV 95.6 H MCH 30.6 MCHC 32.0 RDW Std Deviation 46.7 H RDW Coeff of Mary 13.2 Plt Count 102 L MPV 10.1 Immature Gran % (Auto) 0.000 Neut % (Auto) 71.9 H Lymph % (Auto) 18.5 L [place] % (Auto) 7.3 Eos % (Auto) 0.9 Baso % (Auto) 1.4 H Absolute Neuts (auto) 4.0 Absolute Lymphs (auto) 1.04 Nucleated RBC % 0 PT 17.2 H INR 1.4 APTT 43.0 H Sodium 139 Potassium 4.3 Chloride 108 H Carbon Dioxide 26.0 Anion Gap 5 BUN 19 H Creatinine 1.44 H Estim Creat Clear Calc 41.14 Est GFR (MDRD) Af Amer 61 Est GFR (MDRD) Non-Af 50 L BUN/Creatinine Ratio 13.2 Glucose 91 Calcium 9.2 Troponin I High Sens 6 Radiography Diagnostic Testing: Clinical Impression(s) from Imaging Studies Chest X-Ray 02/07/24 17:05 IMPRESSION: Pulmonary hyperinflation with no acute pulmonary abnormality. Electronically Signed: Evans Gregg MD at 17:41 EDT , Discharge Plan Triage Chief Complaint: Dizziness ED Provider: Liam Carrillo Dx/Rx/DC Orders Prescriptions: No Action ICaps AREDS2 250 mg-200 unit -12.5 mg-1 mg capsule 1 cap PO BID venlafaxine 37.5 mg tablet 37.5 mg PO DAILY Hold Instructions: Pt has been DC'd albuterol sulfate [Ventolin HFA] 90 mcg/actuation Hfa Aerosol Inhaler 2 puff inhalation Q4H PRN PRN (Reason: SOB &/OR WHEEZING) Qty: 0 0RF Eliquis 5 mg tablet 5 mg PO BID Qty: 180 4RF simvastatin 20 mg tablet 20 mg PO QHS Qty: 90 3RF Entresto 24-26 mg tablet 1 tab PO BID Qty: 60 0RF metoprolol succinate 25 mg tablet extended release 24 hr 12.5 mg PO DAILY Qty: 45 3RF Jardiance 25 mg tablet 12.5 mg PO DAILY amiodarone 200 mg tablet 200 mg PO DAILY Qty: 30 0RF Rx Instructions: heart rate Primary Care Provider: Helen Lainez Referrals: Helen Lainez MD [Primary Care Provider] - What to do if you have Problems For any increased pain, shortness of breath, bleeding, nausea or vomiting, chestpain, or any unexpected problems, contact your Primary Care Provider. Call [facility] ([phone]) or report to the closest Emergency Room. Call 911 if necessary. 02/07/242255 <Electronically signed by Liam Carrillo DO> Cosigner Signature (if applicable): CC: Dr. Helen Lainez MD ~ Signed [facility] Work Phone: [phone] 594-613412-26-2023 Nurse Note* Kaz Cancino RN - 11/19/2023 9:00 AM EST Pt comes in today for wound check. [...] effexor if dizziness persists. Pt voices understanding. Kaz Cancino RN documented in this [facility]Tr[facility]12-[facility]-2023 NoteHNO ID: [id number] Author: Charlee Gant RN Service: ? Author Type: Registered Nurse Type: Nursing Progress Note Filed: 11/12/2023 2:51 PM Note Text: 1450 patient D/C to [facility]12-19-2023 NoteHNO ID: [id number] Author: Charlee Gant RN Service: ? Author Type: Registered Nurse Type: Nursing Progress Note Filed: 11/12/2023 7:25 AM Note Text: 0723 Patient admitted to POD, pre procedure teaching at bedside, review of medications with [facility]11-07-2023 Miscellaneous Notes* Telephone Encounter - Kaz Cancino RN - 10/01/2023 4:00 PM EST Pt's name has been added to [facility] procedure board. Kaz Cancino RN * Telephone Encounter - Yoko Ramirez LPN - 10/01/2023 1:22 PM EST Patient returned call to [facility] to confirm date for an ICD Replacement on 10/[address] Jaime. Patient verbalizes understanding to procedure instructions including to hold Eliquis for 3 days prior to change out. Yoko Ramirez LPN * Telephone Encounter - Zeenat Steen - 10/01/2023 12:08 PM EST Patient is scheduled for an ICD Replacement on 10/[address] Jaime. The hospital will call theday before between 2-5pm with your arrival time. You should not eat or drink after midnight the day before the procedure. You will need a meals on wheels driver when released from the hospital. You should continue to take medications as prescribed the morning of the procedure with just a sip of water but Hold Eliquis for 3 days prior to change out Left message for Benito Whittington to call back and confirm date & instructions Zeenat Steen documented in this encounterTrumbull [facility]11-06-2023 NoteHNO ID: [id number] Author: Marco Jaime MD Service: ? Author Type: Physician Type: Progress Notes Filed: 09/30/2023 10:48 AM Note Text: [facility] SECTION OF CARDIAC PACING and ELECTROPHYSIOLOGY OUTPATIENT VISIT DATE September 30, 2023 OUTPATIENT VISIT TYPE NEW PRIMARY CARE PHYSICIAN: Sree Ash MD [address] [address] REFERRING PHYSICIAN: Anupam Reece MD ([place], [place]). HISTORY OF PRESENT ILLNESS: 78-year-old male with history of essential hypertension, cardiomyopathy with severe LV systolic dysfunction, persistent atrial fibrillation/atypical atrial flutter, and oral anticoagulation, status post TRAVEL FREIGHT AND PASSENGER AGENT-D system implantation in 2019 with concurrent AV kyung ablation. The patient was referred for device replacement since the most recent interrogation demonstrated HACK DRIVER status. Benito reports feeling well, has his ups and downs, denies palpitation, dyspnea, chest discomfort, or ICD shocks. He is on oral anticoagulation with Eliquis with no obvious bleeding complications. He is on appropriate medical regimen. Apparently he is on amiodarone as well. Device interrogation from August 2023 showed stable lead parameters, ongoing mode switch for close to a year, battery at HACK DRIVER. ECG shows atrial flutter with ventricular pacing. Most recent echocardiogram showed EF of 30% Pharmacologic nuclear stress test showed apical scar with no reversibility and EF of 31%. PAST MEDICAL HISTORY Diagnosis Date Acid reflux Allergy, unspecified not elsewhere classified Aneurysm, thoracic aortic (HCC) Arrhythmia Arthritis neck Benign neoplasm of colon Cardiac resynchronization therapy defibrillator (TRAVEL FREIGHT AND PASSENGER AGENT-D) in place Chronic obstructive pulmonary disease (COPD) ([facility]) Congenital anomalies of pancreas Coronary artery disease Essential hypertension Hyperlipemia ICD (implantable cardioverter-defibrillator) in place Longstanding persistent atrial fibrillation ([facility]) MVP (mitral valve prolapse) Other and unspecified hyperlipidemia Other premature beats Other specified forms of chronic ischemic heart disease PMH - PAST MEDICAL HISTORY OF dilated cardiolyopathy Snoring SVT (supraventricular tachycardia) Syncope VT (ventricular tachycardia) ([facility]) MEDICATIONS: amLODIPine (NORVASC) 5 mg tablet Take [...] oriented to pers (more content not included)... [facility]11-06-2023 History of Present illness Narrative* Marco Jaime MD - 09/30/2023 10:38 AM EST Images from the original note were not included. Heart [facility] SECTION OF CARDIAC PACING and ELECTROPHYSIOLOGY OUTPATIENT VISIT DATE September 30, 2023 OUTPATIENT VISIT TYPE NEW PRIMARY CARE PHYSICIAN: Sree Ash MD [address] [facility] [address] [place] [address] REFERRING PHYSICIAN: Anupam Reece MD ([place], [place]). HISTORY OF PRESENT ILLNESS: 78-year-old male with history of essential hypertension, cardiomyopathy with severe LV systolic dysfunction, persistent atrial fibrillation/atypical atrial flutter, and oral anticoagulation, status post TRAVEL FREIGHT AND PASSENGER AGENT-D system implantation in 2019 with concurrent AV kyung ablation. The patient was referred for device replacement since the most recent interrogation demonstrated HACK DRIVER status. Benito reports feeling well, has his ups and downs, denies palpitation, dyspnea, chest discomfort, or ICD shocks. He is on oral anticoagulation with Eliquis with no obvious bleeding complications. He is on appropriate medical regimen. Apparently he is on amiodarone as well. Device interrogation from August 2023 showed stable lead parameters, ongoing mode switch for closeto a year, battery at HACK DRIVER. ECG shows atrial flutter with ventricular pacing. Most recent echocardiogram showed EF of 30% Pharmacologic nuclear stress test showed apical scar with no reversibility and EF of 31%. PAST MEDICAL HISTORY Diagnosis Date Acid reflux Allergy, unspecified not elsewhere classified Aneurysm, thoracic aortic (HCC) Arrhythmia Arthritis neck Benign neoplasm of colon Cardiac resynchronization therapy defibrillator (TRAVEL FREIGHT AND PASSENGER AGENT-D) in place Chronic obstructive pulmonary disease (COPD) ([facility]) Congenital anomalies of pancreas Coronary artery disease Essential hypertension Hyperlipemia ICD (implantable cardioverter-defibrillator) in place Longstanding persistent atrial fibrillation ([facility]) MVP (mitral valve prolapse) Other and unspecified hyperlipidemia Other premature beats Other specified forms of chronic ischemic heart disease PMH - PAST MEDICAL HISTORY OF dilated cardiolyopathy Snoring SVT (supraventricular tachycardia) Syncope VT (ventricular tachycardia) ([facility]) MEDICATIONS: amLODIPine (NORVASC) 5 mg tablet Take [...] male with cardiomyopathy, severe LV systolic function, TRAVEL FREIGHT AND PASSENGER AGENT-D system at HACK DRIVER, ongoing atrial fibrillation, on oral anticoagulation and amiodarone. ASSESSMENT/PLAN: 1. Cardiac resynchronization therapy defibrillator (TRAVEL FREIGHT AND PASSENGER AGENT-D) in place - ICD9: V45.02, ICD10: Z95.810 (primary diagnosis) Device reached HACK DRIVER a few weeks ago. We will arrange [...] is no clear plans for sinus rhythm episcopal, would recommend to discontinue amiodarone. - ECG B/O W INTERP (MED OFFICE) 3. 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 4. CHB (complete heart block) (HCC) - ICD9: 426.0, ICD10: I44.2 Status post AV node ablation, addressed with dual-chamber system implantation. Marco Jaime MD CONTACT INFORMATION: aMrco Jaime MD documented in this encounterTrumbull [facility] Hospital11-06-2023 Nurse Note* Oma Cherry MA - 09/30/2023 10:07 AM EST No cardiac complaints today. Oma Cherry MA documented in this encounterTrumbull [facility]10-09-2023 Miscellaneous Notes* Telephone Encounter - Quinten Cannon LPN - 09/02/2023 1:33 PM EDT Spoke with Opal at [facility]. She reports it was previously faxed with the consult paperwork. However She will reprint and fax again. Quinten Lagunas LPN * Telephone Encounter - Nicolle Hawthorne - 09/02/2023 11:37 AM EDT May need to check with [facility] through [facility] Nicolle Hawthorne MA * Telephone Encounter - Marco Jaime MD - 09/02/2023 9:19 AM EDT No, but we need the most recent device interrogation report from [facility] please. Marco Jaime MD * Telephone Encounter - Quinten Cannon LPN - 08/29/2023 3:52 PM EDT Pt called in inquiring if he should complete an labs or cardiac testing prior to his September apt. Quinten Cannon LPN documented in this encounterTrumbull [facility] Hospital01-25-2023 [facility] Note Date/Time February 10, 2025 8:3 3am [facility] Medical Records Department [address] [place] [address] Pre-Anesthesia Evaluation 02/10/25 0825 MR#: [id number] Acct: [id number] Name: BENITO WHITTINGTON Rep #:[id number] : 1945 79 From: Yoni Edwards MD PCP: Dr. Helen Lainez MD Status:REG SDC Y Race: C Location: [place] [address] ASA Classification* ASA Classification ASA Classification: 2 Assessment & Plan Anesthesia* Anesthesia Assessment Anesthesia Assessment: Discussed sedation and/or anesthesia options, risks, benefits, and alternatives with patient/parents/legal guardian/POA. Questions invited. The patient/parents/legal guardian/POA seems to understand and agrees to proceedwith anesthesia plan. Reviewed the physical assessment, medical history, allergy history and patient home medications list prior to surgery/procedure/anesthetic and documented any changes. Performed airway and anesthesia risk assessments. Anesthesia Type Anesthesia Type: MAC History Source History Obtained from:: Patient and Chart Anesthesia Focused Assessment* Temperature: 97.2 F Pulse Rate: 70 Blood Pressure: 97/67 Respiratory Rate: 16 Pulse Ox: 100 Oxygen Delivery Method: Room Air Airway Assessment Mouth opens: >3 cm Mallampati Score: I Teeth Condition: Missing (Patient is edentulous on the top. Bottom teeth are intact.) Neck Range of motion (ROM): Limited ROM Focused Labs Anesthesia Preop lab: CBC WBC 4.3 K/mm3 (4.4-11.0) L 07/30/24 10:07/30/24 RBC 4.82 M/mm3 (4.6-6.2) 07/30/24 10:07/30/24 Hgb 14.1 g/dL (13.0-16.5) 07/30/24 10:07/30/24 Hct 45.1 % (40-54) 07/30/24 10:07/30/24 Plt Count 93 K/mm3 (150-450) L 07/30/24 10:07/30/24 CHEMISTRY Potassium 3.8 mmol/L (3.5-5.1) 09/11/24 13:19 09/11/24 Sodium 136 mmol/L (136-145) 09/11/24 13:19 09/11/24 Magnesium 2.4 mg/dL (1.6-2.6) 04/23/24 15:22 04/23/24 Phosphorus 2.4 mg/dL (2.5-4.9) L 07/04/23 10:01 07/04/23 BUN 15 mg/dL (7-18) 09/11/24 13:19 09/11/24 Creatinine 1.33 mg/dL (0.70-1.30) H 09/11/24 13:19 Glucose 113 mg/dL (74-106) H 09/11/24 13:19 09/11/24 TSH 0.937 uIU/mL (0.358-3.740) 07/07/24 12:34 06/25 02/15 COAG PT 17.2 SECONDS (11.7-14.9) H 02/07/24 17:40 01/23 04/17 Pre-Assessment Diagnosis/Proposed Procedure Planned Operative Procedure(s): CSCOPE Anesthesia History Anesthesia History - 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 When Was Last Pacemaker Check 03/26/18 06/26/18 10:06 QUESTION #4 FULL TEXT: You/Your Family Experience fever (hyperthermia) with Anesthesia Last Oral Intake Last Oral intake: Last Oral Intake NPO since 00:00 02/10/25 08:03 Meds taken in AM with sips of Yes 02/10/25 08:03 water? Meds patient instructed to amiodarone 02/10/25 08:03 take am of surgery emtrestp Any additional information?: Yes NPO since: 04:30 (Patient finished prep at 4:30AM.) Meds taken in AM with sips of water?: Yes PONV PONV - deli slicer: PONV - deli slicer Female No 02/09/25 11:24 HX of Motion Sickness No 02/09/25 11:24 HX of N/V After Surgery No 02/09/25 11:24 Non-Smoker Yes 02/09/25 11:24 Duration of Surgery greater No 02/09/25 11:24 than 60 minutes Number of Risk Factors 1 02/09/25 11:24 PONV Score Low Risk 02/09/25 11:24 Height & Weight Height & Weight: Anesthesia: Height & Weight Height 6 ft 3 in 02/10/25 08:03 Weight: 67 kg 02/10/25 08:03 Body Mass Index (BMI) 18.4 02/10/25 08:03 Respiratory Assessment Respiratory Assessment - deli slicer: Respiratory Tract Infection Hx - deli slicer Hx Respiratory Tract Infection No 02/09/25 11:24 STOP Sleep Apnea STOP Sleep Apnea - deli slicer: STOP Sleep Apnea - deli slicer Hx Hypertension Yes: CONTROLLED WITH MED 02/09/25 11:24 Hx Sleep Apnea No 02/09/25 11:24 CPAP BIPAP Do you snore loudly (louder No 02/09/25 11:24 than talking or can be heard Do you often feel tired/ Yes 02/09/25 11:24 fatigued/ sleepy during daytime? Has anyone observed you stop No 02/09/25 11:24 breathing during sleep? STOP Results Positive 02/09/25 11:24 QUESTION #5 FULL TEXT : Do you snore loudly (louder than talking or can be heard through closed doors)? 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 Specify any problems Hx of Preganancy in last 3 N/A 02/09/25 11:24 Months Nurse Filling Out Transfusion DSCHRIBER 02/09/25 11:24 & Questions: Date: 02/09/25 02/09/25 11:24 Time: 11:26 02/09/25 11:24 Patient unable to answer at this time (ie. 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: /Reproductive Hx- deli slicer Hx Now No 02/09/25 11:24 Gestational Age (in weeks): EDC: Hx Hx Para Hx Section SAB No 02/09/25 11:24 PFSH Medical History COPD (chronic obstructive pulmonary disease) Loss of hearing Cancer Anxiety Alcohol use Low iron Back pain History of IBS Former smoker History of echocardiogram History of stress test Essential tremor Chronic a-fib Essential hypertension Wears glasses Arthritis Thoracic aortic aneurysm Syncope MVP (mitral valve prolapse) Shortness of breath on exertion Cardiology follow-up encounter Pacemaker ICD (implantable cardioverter-defibrillator) in place Long-term use of high-risk medication Near syncope SVT (supraventricular tachycardia) Nonrheumatic mitral (valve) prolapse Premature ventricular contraction Colitis Depression Thoracic aortic aneurysm without rupture Cardiomyopathy Ventricular tachycardia Hyperlipidemia Hypertension Home Medications ?Medication ?Instructions ?Recorded ?Last Taken ?Type vit C 250 mg-vit E 200 unit-zinc 1 cap PO BID 07/30/23 Unknown History ox 12.5 ky-[id number]-zeax capsule (ICaps AREDS2) simvastatin 20 mg tablet 20 mg PO QHS cholesterol #90 tabs 04/21/24 02/08/25 Rx mecobalamin (vitamin B12) 1,000 1,000 mcg PO DAILY 06/1702/09/25 History mcg chewable tablet amiodarone 200 mg tablet 100 mg (1/2 x 200 mg) PO NATALYA LY Pt 07/30/24 02/10/25 Rx awaiting mail in RX, he is OUT of medication #30 tabs apixaban 5 mg tablet (Eliquis) 5 mg PO BID #180 tabs 0 07/30/24 02/07/25 Rx empagliflozin 25 mg tablet 25 mg PO DAILY 10/13/24 History (Jardiance) sacubitril 97 mg-valsartan 103 mg 1 tab PO BID 4 02/10/25 History tablet (Entresto) metoprolol succinate 25 mg 12.5 mg PO QHS 02/09/25 Unk nown History tablet,extended release 24 hr Allergy/AdvReac Type Severity Reaction Status Date / Time No Known Allergies Allergy Verified 02/09/25 11:21 Family History Father Heart disease Sister Heart disease Brother Heart disease Mother Pancreas (digestive gland) works poorly Surgical History Hx of colonoscopy History of total left knee replacement History of bilateral cataract extraction Hx of atrioventricular node ablation History of partial nephrectomy (07/02/18) Presence of cardiac defibrillator History of tonsillectomy Social History household members: none current occupational status: retired Smoking Status: Former smoker how long ago did patient quit smokin alcohol intake: never substance use type: does not use caffeine: Yes Type: coffee Number of servings: 2 frequency: 1-2 times per week Review of Systems (Anesthesia) ROS Narrative System reviewed and no additional complaints, except as documented. 02/10/25832 <Electronically signed by Yoni martinez MD> Date _ Yoni Edwards MD Cosigner Signature: Date CC: ~ Signed [facility] Work Phone: Consult note Author Mumtaz Tobias [facility] Note Date/Time February 10, 2025 9:1 6am [facility] Medical Records Department [address] [place] [id number] Anesthesia Postop Eval I 02/10/25 0855 MR#: [id number] Acct: [id number] Name: BENITO WHITTINGTON Rep #:[id number] : 1945 79 From: Mumtaz Tobias WINE CONSULTANT PCP: Dr. Helen Lainez MD Status:REG SDC Y Race: C Location: [place] [address] Anesthesia: Postop Eval I Current Vital Signs Temperature: 97.0 F Pulse Rate: 73 Blood Pressure: 74/47 Respiratory Rate: 20 Pulse Ox: 99 Oxygen Delivery Method: Room Air Assessment Airway patent: Yes Spontaneous unlabored respirations: Yes Mental status: Awake and Calm nausea: No Vomiting: No Anesthesia Complication: No Fluid Hydration Crystalloid volume administer (ml): 20 Total IV fluid infused: 20 Progress Note Anesthesia document: Postop Eval 1 completed: Yes 02/10/25 0916 <Electronically signed by Mumtaz live CRNA> Date _ Mumtaz Tobias CRNA Cosigner Signature: Date CC: ~ Signed [facility] Work Phone: Evaluation note* Diagnosis Onset Date Resolution Status Cardiomyopathy chronic Hyperlipidemia chronic Hypertension chronic Nonrheumatic mitral (valve) prolapse chronic Presence of cardiac defibrillator chronic SVT (supraventricular tachycardia) chronic Thoracic aortic aneurysm without rupture chronic Atrial flutter acute Wide-complex tachycardia acu te Cardiomyopathy chronic Hx of atrioventricular node ablation chronic Presence of cardiac defibrillator chronic SVT (supraventricular tachycardia) chronic Unilateral primary osteoarthritis, left knee resolved Atrial fibrillation acute Debility acute Hyperlipidemia acute Osteoarthritis acute Osteoarthritis of left knee acute Chronic obstructive pulmonary disease [facility] Work Phone: Evaluation note* Diagnosis Onset Date Resolution Status Atrial flutter acute Wide-complex tachycardia acu te Cardiomyopathy chronic Hx of atrioventricular node ablation chronic Presence of cardiac defibrillator chronic SVT (supraventricular tachycardia) chronic Unilateral primary osteoarthritis, left knee resolved Atrial fibrillation acute Debility acute Hyperlipidemia acute Osteoarthritis acute Osteoarthritis of left knee acute Chronic obstructive pulmonary disease chronic Atrial fibrillation acute Fatigue acute Cardiomyopathy chronic Hyperlipidemia chronic Hypertension chronic Nonrheumatic mitral (valve) prolapse chronic Presence of cardiac defibrillator chronic SVT (supraventricular tachycardia) chronic Thoracic aortic aneurysm without rupture [facility] Work Phone: Evaluation note* Diagnosis Onset Date Resolution Status Unilateral primary osteoarthritis, left knee resolved Atrial fibrillation acute Debility acute Hyperlipidemia acute Osteoarthritis acute Osteoarthritis of left knee acute Chronic obstructive pulmonary disease chronic Atrial fibrillation acute Fatigue acute Cardiomyopathy chronic Hyperlipidemia chronic Hypertension chronic Nonrheumatic mitral (valve) prolapse chronic Presence of cardiac defibrillator chronic SVT (supraventricular tachycardia) chronic Thoracic aortic aneurysm without rupture chronic [facility] Work Phone: Evaluation note* Diagnosis Onset Date Resolution Status Atrial flutter acute Wide-complex tachycardia acu te Cardiomyopathy chronic Hx of atrioventricular node ablation chronic Presence of cardiac defibrillator chronic SVT (supraventricular tachycardia) chronic Atrial fibrillation acute Fatigue acute Cardiomyopathy chronic Hyperlipidemia chronic Hypertension chronic Nonrheumatic mitral (valve) prolapse chronic Presence of cardiac defibrillator chronic SVT (supraventricular tachycardia) chronic Thoracic aortic aneurysm without rupture chronic [facility] Work Phone: Evaluation note* Diagnosis Onset Date Resolution Status Atrial fibrillation acute Cardiomyopathy chronic Hyperlipidemia chronic Hypertension chronic Nonrheumatic mitral (valve) prolapse chronic Presence of cardiac defibrillator chronic SVT (supraventricular tachycardia) chronic Thoracic aortic aneurysm without rupture chronic Atrial flutter acute Wide-complex tachycardia acu te Hx of atrioventricular node ablation chronic Presence of cardiac defibrillator chronic SVT (supraventricular tachycardia) chronic [facility] Work Phone: Evaluation note* Diagnosis Onset Date Resolution Status Atrial flutter acute Wide-complex tachycardia acu te Hx of atrioventricular node ablation chronic Presence of cardiac defibrillator chronic SVT (supraventricular tachycardia) chronic [facility] Work Phone: Evaluation noteNo assessment information available [facility] Work Phone: Evaluation note* Diagnosis Onset Date Resolution Status Cardiomyopathy chronic Hyperlipidemia chronic Nonrheumatic mitral (valve) prolapse chronic Presence of cardiac defibrillator chronic SVT (supraventricular tachycardia) chronic Thoracic aortic aneurysm without rupture chronic [facility] Work Phone: Evaluation note* Diagnosis Onset Date Resolution Status Wide-complex tachycardia acu te Cardiomyopathy chronic Hx of atrioventricular node ablation chronic Presence of cardiac defibrillator chronic SVT (supraventricular tachycardia) chronic [facility] Work Phone: Evaluation note* Diagnosis Onset Date Resolution Status Wide-complex tachycardia acu te Cardiomyopathy chronic Hx of atrioventricular node ablation chronic Presence of cardiac defibrillator chronic SVT (supraventricular tachycardia) chronic Cardiomyopathy chronic Hx of atrioventricular node ablation chronic Presence of cardiac defibrillator chronic SVT (supraventricular tachycardia) chronic Atrial fibrillation acute Dyspnea acute Cardiomyopathy chronic Hyperlipidemia chronic Nonrheumatic mitral (valve) prolapse chronic Presence of cardiac defibrillator chronic SVT (supraventricular tachycardia) chronic Thoracic aortic aneurysm without rupture chronic [facility] Work Phone: Evaluation note* Diagnosis Cardiac resynchronization therapy defibrillator (TRAVEL FREIGHT AND PASSENGER AGENT-D) in place- Primary Atrial flutter, 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* Diagnosis Onset Date Resolution Status Cardiomyopathy chronic Hx of atrioventricular node ablation chronic Presence of cardiac defibrillator chronic SVT (supraventricular tachycardia) chronic Atrial fibrillation acute Dyspnea acute Cardiomyopathy chronic Hyperlipidemia chronic Nonrheumatic mitral (valve) prolapse chronic Presence of cardiac defibrillator chronic SVT (supraventricular tachycardia) chronic Thoracic aortic aneurysm without rupture [facility] Work Phone: Evaluation note* Diagnosis ICD (implantable cardioverter-defibrillator) in place- Primary Automatic implantable cardiac defibrillator in situ documented in this encounter [facility]* Diagnosis Onset Date Resolution Status Atrial fibrillation acute Dyspnea acute Fatigue acute Cardiomyopathy chronic Hyperlipidemia chronic Nonrheumatic mitral (valve) prolapse chronic Presence of cardiac defibrillator chronic SVT (supraventricular tachycardia) chronic Thoracic aortic aneurysm without rupture chronic [facility] Work Phone: Evaluation note* Diagnosis Onset Date Resolution Status Atrial fibrillation acute Dyspnea acute Fatigue acute Cardiomyopathy chronic Hyperlipidemia chronic Nonrheumatic mitral (valve) prolapse chronic Presence of cardiac defibrillator chronic SVT (supraventricular tachycardia) chronic Thoracic aortic aneurysm without rupture chronic Atrial flutter acute Wide-complex tachycardia acu te Cardiomyopathy chronic Hx of atrioventricular node ablation chronic Presence of cardiac defibrillator chronic SVT (supraventricular tachycardia) [facility] Work Phone: Evaluation note* Diagnosis Cardiac resynchronization therapy defibrillator (TRAVEL FREIGHT AND PASSENGER AGENT-D) in place- Primary Implanted defibrillator electrode lead fracture, subsequent encounter Persistent atrial fibrillation (HCC) Atrial fibrillation Atypical atrial flutter (HCC) Atrial flutter CHB (complete heart block) (HCC) Atrioventricular block, complete S/P AV (atrioventricular) kyung ablation 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 residential (current) use of anticoagulants Long-term (current) use of anticoagulants At risk for stroke Other specified personal history presenting hazards to health Implanted defibrillator electrode lead fracture, initial encounter Implanted defibrillator electrode lead fracture, initial encounter [facility] Cardiac resynchronization therapy defibrillator (TRAVEL FREIGHT AND PASSENGER AGENT-D) in place- Primary [facility] Author Juan Diego Noriega [facility] Note Date/Time February 10, 2025 8:3 6am [facility] Medical Records Department [address] [place] [address] History & Physical Exam 02/10/25 0833 MR#: [id number] Acct: [id number] Name: BENITO WHITTINGTON Rep #:[id number] : 1945 79 From: Juan Diego Noriega DO PCP: Dr. Helen Lainez MD Status:[facility] Location: [place] [address] HPI - General General Date of Admission: 02/10/25 Date of Service: 02/10/25 Chief Complaint: diarrhea HPI Narrative BENITO WHITTINGTON, is a 79 M who presents Chief Complaint: diarrhea Details: 79y/o male presents for consultation with complaints of diarrhea. Stool culture,O&P negative 09/13/2024. PMH significant for non-CAD related cardiomyopathy, SVT, VT, MVP, hyperlipidemia, hypertension, thoracic aortic aneurysm, with AICD and on Eliquis. He reports a long history of alternation constipation and diarrhea, reporting he was using Lactulose PRN until 2 months ago. Over the past6 months he reports an increase in diarrhea and much worse the past 3 weeks. He is experiencing generalized abdominal discomfort and fecal urgency without incontinence. Stools are typically after meals and denies any bleeding. He complains of a 10-15lb weight loss over the past several months as well. - diarrhea and abdominal discomfort - the diarrhea has been ongoing for the past few years but much worse recently (3 weeks) - reports in the past he would have diarrhea that would last 3-4 days - but now the diarrhea is persisting - denies any fecal incontinence - he does experience urgency - waking up at HS with diarrhea on occasion - [place] 6-7 - having 1-5x a day - stools are usually after meals - he is not diabetic - denies any h/o pancreatitis - denies any family h/o celiac disease - denies any family h/o esophageal, gastric or colon CA - stopped Lactulose 2 months ago - states he was taking this because he was constipated - reports stools can fluctuate between constipation and diarrhea for many years - started Jardiance & Entresto 6 months ago - denies any dietary changes - HB infrequent - denies dysphagia unless he tries to swallow a handful of pills - last colon 10 years ago - polyps - states eh had two colonoscopies which showed inflammation in the colon - does not recall any other specifics or treatment - weight loss of 10-15lbs over the past 6 months - Imodium does help - he lives alone - prepares his own meals - continues to drive - denies any falls in the past year - [facility] Medical History COPD (chronic obstructive pulmonary disease) Loss of hearing Cancer Anxiety Alcohol use Low iron Back pain History of IBS Former smoker History of echocardiogram History of stress test Essential tremor Chronic a-fib Essential hypertension Wears glasses Arthritis Thoracic aortic aneurysm Syncope MVP (mitral valve prolapse) Shortness of breath on exertion Cardiology follow-up encounter Pacemaker ICD (implantable cardioverter-defibrillator) in place Long-term use of high-risk medication Near syncope SVT (supraventricular tachycardia) Nonrheumatic mitral (valve) prolapse Premature ventricular contraction Colitis Depression Thoracic aortic aneurysm without rupture Cardiomyopathy Ventricular tachycardia Hyperlipidemia Hypertension Home Medications ?Medication ?Instructions ?Recorded ?Last Taken ?Type vit C 250 mg-vit E 200 unit-zinc 1 cap PO BID 07/30/23 Unknown History ox 12.5 ah-ehcywu-rrbcks-zeax capsule (ICaps AREDS2) simvastatin 20 mg tablet 20 mg PO QHS cholesterol #90 tabs 04/21/24 02/08/25 Rx mecobalamin (vitamin B12) 1,000 1,000 mcg PO DAILY 06/1702/09/25 History mcg chewable tablet amiodarone 200 mg tablet 100 mg (1/2 x 200 mg) PO NATALYA LY Pt 07/30/24 02/10/25 Rx awaiting mail in RX, he is OUT of medication #30 tabs apixaban 5 mg tablet (Eliquis) 5 mg PO BID #180 tabs 0 07/30/24 02/07/25 Rx empagliflozin 25 mg tablet 25 mg PO DAILY 10/13/24 History (Jardiance) sacubitril 97 mg-valsartan 103 mg 1 tab PO BID 4 02/10/25 History tablet (Entresto) metoprolol succinate 25 mg 12.5 mg PO QHS 02/09/25 Unk nown History tablet,extended release 24 hr Allergy/AdvReac Type Severity Reaction Status Date / Time No Known Allergies Allergy Verified 02/09/25 11:21 Family History Father Heart disease Sister Heart disease Brother Heart disease Mother Pancreas (digestive gland) works poorly Surgical History Hx of colonoscopy History of total left knee replacement History of bilateral cataract extraction Hx of atrioventricular node ablation History of partial nephrectomy (07/02/18) Presence of cardiac defibrillator History of tonsillectomy Social History household members: none current occupational status: retired Smoking Status: Former smoker how long ago did patient quit smokin alcohol intake: never substance use type: does not use caffeine: Yes Type: coffee Number of servings: 2 frequency: 1-2 times per week ROS Constitutional Constitutional: Denies fatigue, fever(s), poor appetite, weight gain or weight loss Gastrointestinal Gastrointestinal: Denies belching, bloating, change in bowel habits, change in stool character, chewing difficulty, coffee ground emesis, constipation, cramping, diarrhea, dyspepsia, dysphagia, early satiety, excessive flatus, fecalincontinence, heartburn, hematemesis, hematochezia, hemorrhoids, loose stools, melena, nausea, odynophagia, rectal bleeding, tenesmus, vomiting or weight changes Vital Signs Vital Signs Vital Signs: 02/10/25 08:00 02/10/25 08:03 Temperature 97.2 F L Temperature Source Temporal Pulse Rate 70 Respiratory Rate 16 Respiratory Pattern Normal Blood Pressure 97/67 Blood Pressure Mean 77 Blood Pressure Source Monitor Blood Pressure Position Semi-Fowlers Blood Pressure Location Right Arm Pulse Ox 100 Oxygen Delivery Method Room Air Weight Weight: 147 lb 11.355 oz Body Mass Index (BMI) 18.4 Physical Exam Const alert, oriented x3, no apparent distress and healthy appearing General Appearance: cooperative GI normal to inspection, nondistended, normoactive bowel sounds, soft to palpation,non-tender and non-distended Percussion: normal to percussion Rectal Exam: deferred Assessment & Plan Assessment/Plan (1) Abdominal pain: QUALIFIERS: Abdominal location: generalized Qualified Code(s): R10.84 - Generalized abdominal pain (2) Weight loss: (3) Diarrhea: QUALIFIERS: Diarrhea type: unspecified type Qualified Code(s): R19.7 - Diarrhea, unspecified PLAN: Assessment and Plan Assessment and Plan (1) Diarrhea: Status: Acute Qualifiers: Diarrhea type: unspecified type Qualified Code(s): R19.7 - Diarrhea, unspecified (2) Weight loss: Status: Acute (3) Abdominal pain: Status: Acute Qualifiers: Abdominal location: generalized Qualified Code(s): R10.84 - Generalizedabdominal pain (4) Fecal urgency: Status: Acute (5) Heartburn: Status: Acute Orders: Orders Colonoscopy Today NERI Castro R19.7 - Diarrhea, unspecified, R63.4 - Abnormal weight loss ENTERIC PATHOGEN PANEL STOOL Today NERI Castro K58.9 - Irritable bowel syndrome, unspecified, R19.7 - Diarrhea, unspecified, R63.4 - Abnormal weight loss CDIFF (PCR) Today NERI Castro R19.7 - Diarrhea, unspecified, R63.4 - Abnormal weight loss Celiac Disease Profile Today NERI Castro R19.7 - Diarrhea, unspecified, R63.4 - Abnormal weight loss Pancreatic Elastase, Fecal Today NERI Castro R19.7 - Diarrhea, unspecified, R63.4 - Abnormal weight loss Calprotectin, Stool Today NERI Castro R19.7 - Diarrhea, unspecified, R63.4 - Abnormal weight loss Giardia Lamblia, Stool EIA Today NERI Castro R19.7 - Diarrhea, unspecified, R63.4 - Abnormal weight loss Ova and Parasites 8623 Today NERI Castro K58.9 - Irritable bowel syndrome, unspecified, R19.7 - Diarrhea, unspecified, R63.4 - Abnormal weight loss Allergen, Food Profile 14 Today Yoko NERI Blas R19.7 - Diarrhea, unspecified, R63.4 - Abnormal weight loss CRP Today Yoko NERI Blas R19.7 - Diarrhea, unspecified, R63.4 - Abnormalweight loss Abd Inc Decub and/or Erect Today NERI Castro R19.7 - Diarrhea, unspecified, R63.4 - Abnormal weight loss H. PYLORI STOOL AG Today Yoko NERI Blas R10.9 - Unspecified abdominal pain, R12 - Heartburn, R15.2 - Fecal urgency, R19.7 - Diarrhea, unspecified, R63.4 - Abnormal weight loss Medications: Changed From empagliflozin (Jardiance) 12.5 mg (1/2 x 25 mg) PO DAILY 14 tabs 0RF To empagliflozin (Jardiance) 25 mg PO DAILY Rashmi Fatima NP, NERI Discontinued lactulose Discontinued Reason: Pt no longer taking 10 grams PO BID PRN Plan 79y/o male presents for consultation with complaints of diarrhea. Stool culture,O&P negative 09/13/2024. PMH significant for non-CAD related cardiomyopathy, SVT, VT, MVP, hyperlipidemia, hypertension, thoracic aortic aneurysm, with AICD and on Eliquis. He reports a long history of alternation constipation and diarrhea, reporting he was using Lactulose PRN until 2 months ago. Over the past6 months he reports an increase in diarrhea and much worse the past 3 weeks. He is experiencing generalized abdominal discomfort and fecal urgency without incontinence. Stools are typically after meals and denies any bleeding. He complains of a 10-15lb weight loss over the past several months as well. I have ordered stool testing, labs and scheduled him for a colonoscopy pending cardiac clearance with approval to hold Eliquis 2 days prior to procedure. 1. Complete abdominal x-ray today to r/o overflow diarrhea 2. Start Metamucil 2tsp once a day in ounces of water after breakfast every morning 3. Complete labs (CRP, Food allergen panel, Celiac Panel) 4. Complete stool testing (GIPCR, Culture, O&P, C. Diff) 5. Colonoscopy - obtain cardiac clearance and approval to hold Eliquis Patient Instructions: 1. Metamucil 2tsp once a day in ounces of water after breakfast every morning 02/10/25 0836 <Electronically signed by Juan Diego Noriega DO> Cosigner Signature (if applicable): CC: Dr. Helen Lainez MD; Juan Diego Noriega, ~ Signed [facility] Work Phone: Hospital Discharge instructions Additional Instructions Thank you for trusting us with your care today! Please take Tylenol (2 pills, 650 mg), ibuprofen (2 pills, 400 mg) every 6 hours as needed for pain and fever control. Please return to the emergency department if your symptoms change or worsen. Please follow with your primary care physician and/or your orthopedic surgeon for further outpatient evaluation and management.[facility] Work Phone: Reason for referral (narrative)No reason for referral information availableWooAdena [facility] Work Phone: Summary Purpose Family History Relationship Condition Age at Onset Recorded Date/T rancho father Cardiac disease Unknown sister Cardiac disease Unknown brother Cardiac disease Unknown Relationship Condition Age at Onset Recorded Date/T rancho father Cardiac disease Unknown sister Cardiac disease Unknown brother Cardiac disease Unknown mother Pancreatic insufficiency Unknown Advance Directives Advance Directive Response Recorded Date/ Time Name of Medical Power of Supervisor Dry Cleaning HEATHER Andersen er February 08, 2022 12:36pm Advance Directives Yes May 17 11:53am Living Will Yes February 13, 2022 1:53pm Power of Supervisor Dry Cleaning Yes February 13 1:53pm Advance Directive Response Recorded Date/ Time Name of Medical Power of Supervisor Dry Cleaning HEATHER Andersen er February 08, 2022 12:36pm Name of Medical Power of Supervisor Dry Cleaning attorney Ra February 13, 2022 1:53pm Advance Directives Yes May 17 11:53am Living Will Yes February 13, 2022 1:53pm Power of Supervisor Dry Cleaning Yes February 13 1:53pm Advance Directive Response Recorded Date/ Time Advance Directives Yes May 17 11:53am Living Will Yes February 13, 2022 1:53pm Power of Supervisor Dry Cleaning Yes February 13 1:53pm Advance Directive Response Recorded Date/ Time Advance Directives Yes May 17 10:53am Living Will Yes February 13, 2022 12:53pm Power of Supervisor Dry Cleaning Yes February 13 12:53pm Advance Directive Response Recorded Date/ Time Name of Medical Power of Supervisor Dry Cleaning Ta Stevens ( friend) November 05, 2022 9:24am Advance Directives Yes May 17 10:53am Living Will Yes November 05, 022 9:24am Power of Supervisor Dry Cleaning Yes November 05, 2022 9:24am Advance Directive Response Recorded Date/ Time Advance Directives Yes May 17 11:53am Living Will Yes November 05 10:24am Power of Supervisor Dry Cleaning Yes November 05, 2022 10:24am Advance Directive Response Recorded Date/ Time Advance Directives Yes May 17 11:53am Living Will No July 02, 2023 10:48pm Power of Supervisor Dry Cleaning No July 02 10:48pm Advance Directive Response Recorded Date/ Time Advance Directives Yes May 17 10:53am Living Will No July 02, 2023 9:48pm Power of Supervisor Dry Cleaning No July 02 9:48pm Advance Directive Response Recorded Date/ Time Name of Medical Power of Supervisor Dry Cleaning ta stevens February 07, 2024 6:16pm Advance Directives Yes May 17 11:53am Living Will Yes February 07, 2024 6:16pm Power of Supervisor Dry Cleaning Yes February 06 6:16pm Advance Directive Response Recorded Date/ Time Name of Medical Power of Supervisor Dry Cleaning recalled February 28, 2024 6:14pm Advance Directives Yes May 17 11:53am Living Will Yes February 28, 2024 6:14pm Power of Supervisor Dry Cleaning Yes February 27 6:14pm Name of Medical Power of Supervisor Dry Cleaning ta stevens February 07, 2024 6:16pm Advance Directive Response Recorded Date/ Time Living Will Yes November 11 024 10:53pm Power of Supervisor Dry Cleaning Yes November 11, 2024 10:53pm Name of Medical Power of Supervisor Dry Cleaning Ta Stevens November 11, 2024 10:53pm Living Will Yes February 09, 2025 11:24am Power of Supervisor Dry Cleaning Yes February 09 11:24am Name of Medical Power of Supervisor Dry Cleaning ROTARY VENEER MACHINE OPERATOR/TA STEVENS February 09, 2025 11:24am Living Will Yes January 26, 2025 8:14pm Power of Supervisor Dry Cleaning Yes January 26 8:14pm Name of Medical Power of Supervisor Dry Cleaning TA STEVENS January 26, 2025 8:14pm Advance Directives Yes May 17 11:53am Advance Directive Response Recorded Date/ Time Living Will Yes February 09, 2025 11:24am Do you have a Healthcare Pow er of Supervisor Dry Cleaning? 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 Yes January 26, 2025 8:14pm Name of Medical Power of Supervisor Dry Cleaning TA STEVENS January 26, 2025 8:14pm Advance Directives Yes May 17 11:53am Chief Complaint and Reason for Visit Chief Complaint E ORDERS 6 m fu PRE-OP EVAL PRE-OP EVAL 3 mos TRAVEL FREIGHT AND PASSENGER AGENT-D f/u LT KNEE *JARRED* LT TOTAL KNEE W JARRED LT TOTAL KNEE W JARRED LEFT TOTAL KNEE Reason for Visit Cardiomyopathy Hyperlipidemia Hypertension Nonrheumatic mitral (valve) prolapse Presence of cardiac defibrillator SVT (supraventricular tachycardia) Thoracic aortic aneurysm without rupture Atrial flutter Wide-complex tachycardia Cardiomyopathy Hx of atrioventricular node ablation Presence of cardiac defibrillator SVT (supraventricular tachycardia) Unilateral primary osteoarthritis, left knee Atrial fibrillation Debility Hyperlipidemia Osteoarthritis Osteoarthritis of left knee Chronic obstructive pulmonary disease Chief Complaint 3 mos TRAVEL FREIGHT AND PASSENGER AGENT-D f/u LT KNEE *JARRED* LT TOTAL KNEE W JARRED LT TOTAL KNEE W JARRED LEFT TOTAL KNEE L TKA. DECLINE IN ADLS. RX HERE Localized swelling, mass and lump, left lower limb annual in-clinic/Sees KRR @ 3:30 6 M FU/OPAL@3:00 E ORDER Reason for Visit Atrial flutter Wide-complex tachycardia Cardiomyopathy Hx of atrioventricular node ablation Presence of cardiac defibrillator SVT (supraventricular tachycardia) Unilateral primary osteoarthritis, left knee Atrial fibrillation Debility Hyperlipidemia Osteoarthritis Osteoarthritis of left knee Chronic obstructive pulmonary disease Atrial fibrillation Fatigue Cardiomyopathy Hyperlipidemia Hypertension Nonrheumatic mitral (valve) prolapse Presence of cardiac defibrillator SVT (supraventricular tachycardia) Thoracic aortic aneurysm without rupture Chief Complaint LT KNEE *JARRED* LT TOTAL KNEE W JARRED LT TOTAL KNEE W JARRED LEFT TOTAL KNEE L TKA. DECLINE IN ADLS. RX HERE Localized swelling, mass and lump, left lower limb annual in-clinic/Sees KRR @ 3:30 6 M FU/OPAL@3:00 E ORDER Reason for Visit Unilateral primary o steoarthritis, left knee Atrial fibrillation Debility Hyperlipidemia Osteoarthritis Osteoarthritis of left knee Chronic obstructive pulmonary disease Atrial fibrillation Fatigue Cardiomyopathy Hyperlipidemia Hypertension Nonrheumatic mitral (valve) prolapse Presence of cardiac defibrillator SVT (supraventricular tachycardia) Thoracic aortic aneurysm without rupture Chief Complaint L TKA. DECLINE IN AD LS. RX HERE Localized swelling, mass and lump, left lower limb annual in-clinic/Sees KRR @ 3:30 6 M FU/OPAL@3:00 E ORDER Reason for Visit Atrial flutter Wide-complex tachycardia Cardiomyopathy Hx of atrioventricular node ablation Presence of cardiac defibrillator SVT (supraventricular tachycardia) Atrial fibrillation Fatigue Cardiomyopathy Hyperlipidemia Hypertension Nonrheumatic mitral (valve) prolapse Presence of cardiac defibrillator SVT (supraventricular tachycardia) Thoracic aortic aneurysm without rupture Chief Complaint 3 M FU 3 mos TRAVEL FREIGHT AND PASSENGER AGENT-D f/u thoracic aortic aneurysm ABDOMINAL PAIN Reason for Visit Atrial fibrillation Cardiomyopathy Hyperlipidemia Hypertension Nonrheumatic mitral (valve) prolapse Presence of cardiac defibrillator SVT (supraventricular tachycardia) Thoracic aortic aneurysm without rupture Atrial flutter Wide-complex tachycardia Hx of atrioventricular node ablation Presence of cardiac defibrillator SVT (supraventricular tachycardia) Chief Complaint 3 M FU 3 mos TRAVEL FREIGHT AND PASSENGER AGENT-D f/u thoracic aortic aneurysm ABDOMINAL PAIN Headache, unspecified Reason for Visit Atrial fibrillation Cardiomyopathy Hyperlipidemia Hypertension Nonrheumatic mitral (valve) prolapse Presence of cardiac defibrillator SVT (supraventricular tachycardia) Thoracic aortic aneurysm without rupture Atrial flutter Wide-complex tachycardia Hx of atrioventricular node ablation Presence of cardiac defibrillator SVT (supraventricular tachycardia) Chief Complaint 3 M FU 3 mos TRAVEL FREIGHT AND PASSENGER AGENT-D f/u thoracic aortic aneurysm ABDOMINAL PAIN Headache, unspecified chest pain Reason for Visit Atrial fibrillation Cardiomyopathy Hyperlipidemia Hypertension Nonrheumatic mitral (valve) prolapse Presence of cardiac defibrillator SVT (supraventricular tachycardia) Thoracic aortic aneurysm without rupture Atrial flutter Wide-complex tachycardia Hx of atrioventricular node ablation Presence of cardiac defibrillator SVT (supraventricular tachycardia) Chief Complaint 3 mos TRAVEL FREIGHT AND PASSENGER AGENT-D f/u thoracic aortic aneurysm ABDOMINAL PAIN Headache, unspecified chest pain STOOL SAMPLE Reason for Visit Atrial flutter Wide-complex tachycardia Hx of atrioventricular node ablation Presence of cardiac defibrillator SVT (supraventricular tachycardia) Chief Complaint ABDOMINAL PAIN Headache, unspecified chest pain STOOL SAMPLE Chief Complaint ABDOMINAL PAIN Headache, unspecified chest pain STOOL SAMPLE 6 M FU Ventricular premature depolarization Supraventricular tachycardia Supraventricular tachycardia Reason for Visit Cardiomyopathy Hyperlipidemia Nonrheumatic mitral (valve) prolapse Presence of cardiac defibrillator SVT (supraventricular tachycardia) Thoracic aortic aneurysm without rupture Chief Complaint ABDOMINAL PAIN Headache, unspecified chest pain STOOL SAMPLE 6 M FU Ventricular premature depolarization Supraventricular tachycardia Supraventricular tachycardia DUE ON OR AROUND DATE LISTED CHILLS WITHOUT FEVER Reason for Visit Cardiomyopathy Hyperlipidemia Nonrheumatic mitral (valve) prolapse Presence of cardiac defibrillator SVT (supraventricular tachycardia) Thoracic aortic aneurysm without rupture Chief Complaint Headache, unspecifie d chest pain STOOL SAMPLE 6 M FU Ventricular premature depolarization Supraventricular tachycardia Supraventricular tachycardia DUE ON OR AROUND DATE LISTED CHILLS WITHOUT FEVER SCREENING Reason for Visit Cardiomyopathy Hyperlipidemia Nonrheumatic mitral (valve) prolapse Presence of cardiac defibrillator SVT (supraventricular tachycardia) Thoracic aortic aneurysm without rupture Chief Complaint Headache, unspecifie d chest pain STOOL SAMPLE 6 M FU Ventricular premature depolarization Supraventricular tachycardia Supraventricular tachycardia DUE ON OR AROUND DATE LISTED CHILLS WITHOUT FEVER SCREENING CHILLS WITHOUT FEVER Reason for Visit Cardiomyopathy Hyperlipidemia Nonrheumatic mitral (valve) prolapse Presence of cardiac defibrillator SVT (supraventricular tachycardia) Thoracic aortic aneurysm without rupture Chief Complaint DUE ON OR AROUND GLADYS E LISTED CHILLS WITHOUT FEVER SCREENING CHILLS WITHOUT FEVER remote TRAVEL FREIGHT AND PASSENGER AGENT-D f/u Reason for Visit Wide-complex tachyca rdia Cardiomyopathy Hx of atrioventricular node ablation Presence of cardiac defibrillator SVT (supraventricular tachycardia) Chief Complaint remote TRAVEL FREIGHT AND PASSENGER AGENT-D f/u Reason for Visit Wide-complex tachyca rdia Cardiomyopathy Hx of atrioventricular node ablation Presence of cardiac defibrillator SVT (supraventricular tachycardia) Chief Complaint remote TRAVEL FREIGHT AND PASSENGER AGENT-D f/u RIGHT HAND/WRIST PAIN R/T FALL Reason for Visit Wide-complex tachyca rdia Cardiomyopathy Hx of atrioventricular node ablation Presence of cardiac defibrillator SVT (supraventricular tachycardia) Chief Complaint remote TRAVEL FREIGHT AND PASSENGER AGENT-D f/u RIGHT HAND/WRIST PAIN R/T FALL ICD CHECK PER OPAL / 1:30 w KR 6 M FU / [facility] Reason for Visit Wide-complex tachyca rdia Cardiomyopathy Hx of atrioventricular node ablation Presence of cardiac defibrillator SVT (supraventricular tachycardia) Cardiomyopathy Hx of atrioventricular node ablation Presence of cardiac defibrillator SVT (supraventricular tachycardia) Atrial fibrillation Dyspnea Cardiomyopathy Hyperlipidemia Nonrheumatic mitral (valve) prolapse Presence of cardiac defibrillator SVT (supraventricular tachycardia) Thoracic aortic aneurysm without rupture Chief Complaint remote TRAVEL FREIGHT AND PASSENGER AGENT-D f/u RIGHT HAND/WRIST PAIN R/T FALL ICD CHECK PER OPAL / 1:30 w KR 6 M FU / [facility]p [facility] Amb Documentation Reason for Visit Wide-complex tachyca rdia Cardiomyopathy Hx of atrioventricular node ablation Presence of cardiac defibrillator SVT (supraventricular tachycardia) Cardiomyopathy Hx of atrioventricular node ablation Presence of cardiac defibrillator SVT (supraventricular tachycardia) Atrial fibrillation Dyspnea Cardiomyopathy Hyperlipidemia Nonrheumatic mitral (valve) prolapse Presence of cardiac defibrillator SVT (supraventricular tachycardia) Thoracic aortic aneurysm without rupture Chief Complaint ICD CHECK PER OPAL / 1:30 w KR 6 M FU / 1p w OPAL [facility] THORACIC AORTIC ANEURYSM Amb Documentation Reason for Visit Cardiomyopathy Hx of atrioventricular node ablation Presence of cardiac defibrillator SVT (supraventricular tachycardia) Atrial fibrillation Dyspnea Cardiomyopathy Hyperlipidemia Nonrheumatic mitral (valve) prolapse Presence of cardiac defibrillator SVT (supraventricular tachycardia) Thoracic aortic aneurysm without rupture Chief Complaint ICD CHECK PER OPAL / 1:30 w KR 6 M FU / 1p w OPAL [facility] THORACIC AORTIC ANEURYSM Amb Documentation Pacer Check Remote LOW BACK PAIN. RX HERE HFrEF Reason for Visit Cardiomyopathy Hx of atrioventricular node ablation Presence of cardiac defibrillator SVT (supraventricular tachycardia) Atrial fibrillation Dyspnea Cardiomyopathy Hyperlipidemia Nonrheumatic mitral (valve) prolapse Presence of cardiac defibrillator SVT (supraventricular tachycardia) Thoracic aortic aneurysm without rupture Chief Complaint ICD CHECK PER OPAL / 1:30 w KR 6 M FU / 1p w OPAL [facility] THORACIC AORTIC ANEURYSM Amb Documentation Pacer Check Remote HFrEF LOW BACK PAIN. RX HERE Reason for Visit Cardiomyopathy Hx of atrioventricular node ablation Presence of cardiac defibrillator SVT (supraventricular tachycardia) Atrial fibrillation Dyspnea Cardiomyopathy Hyperlipidemia Nonrheumatic mitral (valve) prolapse Presence of cardiac defibrillator SVT (supraventricular tachycardia) Thoracic aortic aneurysm without rupture Chief Complaint HFrEF Heart failure LOW BACK PAIN. RX HERE 3 M FU INT LABS Reason for Visit Atrial fibrillation Dyspnea Fatigue Cardiomyopathy Hyperlipidemia Nonrheumatic mitral (valve) prolapse Presence of cardiac defibrillator SVT (supraventricular tachycardia) Thoracic aortic aneurysm without rupture Chief Complaint HFrEF Heart failure LOW BACK PAIN. RX HERE 3 M FU INT LABS E-ORDER Reason for Visit Atrial fibrillation Dyspnea Fatigue Cardiomyopathy Hyperlipidemia Nonrheumatic mitral (valve) prolapse Presence of cardiac defibrillator SVT (supraventricular tachycardia) Thoracic aortic aneurysm without rupture Chief Complaint HFrEF Heart failure LOW BACK PAIN. RX HERE 3 M FU INT LABS E-ORDER EORDERS TRAVEL FREIGHT AND PASSENGER AGENT-D f/u. Dizziness, near syncope, SOB Reason for Visit Atrial fibrillation Dyspnea Fatigue Cardiomyopathy Hyperlipidemia Nonrheumatic mitral (valve) prolapse Presence of cardiac defibrillator SVT (supraventricular tachycardia) Thoracic aortic aneurysm without rupture Atrial flutter Wide-complex tachycardia Cardiomyopathy Hx of atrioventricular node ablation Presence of cardiac defibrillator SVT (supraventricular tachycardia) Chief Complaint HFrEF Heart failure LOW BACK PAIN. RX HERE 3 M FU INT LABS E-ORDER EORDERS TRAVEL FREIGHT AND PASSENGER AGENT-D f/u. Dizziness, near syncope, SOB Dizzy Reason for Visit Atrial fibrillation Dyspnea Fatigue Cardiomyopathy Hyperlipidemia Nonrheumatic mitral (valve) prolapse Presence of cardiac defibrillator SVT (supraventricular tachycardia) Thoracic aortic aneurysm without rupture Atrial flutter Wide-complex tachycardia Cardiomyopathy Hx of atrioventricular node ablation Presence of cardiac defibrillator SVT (supraventricular tachycardia) Chief Complaint HFrEF Heart failure LOW BACK PAIN. RX HERE 3 M FU INT LABS E-ORDER EORDERS Pacer Check Remote TRAVEL FREIGHT AND PASSENGER AGENT-D f/u. Dizziness, near syncope, SOB Dizzy Pacer Check Remote Pacer Check Remote Pacer Check Remote Ventricular premature depolarization Amb Documentation KNEE Reason for Visit Atrial fibrillation Dyspnea Fatigue Cardiomyopathy Hyperlipidemia Nonrheumatic mitral (valve) prolapse Presence of cardiac defibrillator SVT (supraventricular tachycardia) Thoracic aortic aneurysm without rupture Atrial flutter Wide-complex tachycardia Cardiomyopathy Hx of atrioventricular node ablation Presence of cardiac defibrillator SVT (supraventricular tachycardia) Chief Complaint Admit Date Diarrhea October 13, 2024 9:51am E ORDERS October 15, 2024 9:32am 3 M FU November 06, 2024 8:24am fall November 11, 2024 7:42pm Pacer Check Remote November 18, 2024 2:00am L EYE SWELLING, REDNESS January 26, 2025 5:50pm Reason for Visit Admit Date Abdominal pain October 13, 2024 9:51am Diarrhea October 13, 2024 9:51am Fecal urgency October 13, 2024 9:51am Heartburn October 13, 2024 9:51am Weight loss October 13, 2024 9:51am Atrial fibrillation November 06, 2024 8:24am Dizziness November 06, 2024 8:24am residential current use of amiodarone Dece mber 2023 8:24am Cardiomyopathy November 06, 2024 8:24am Presence of cardiac defibrillator Decemb er 2023 8:24am Thoracic aortic aneurysm without rupture November 06, 2024 8:24am Abdominal pain February 10, 2025 7:2 5am Diarrhea February 10, 2025 7:2 5am Weight loss February 10, 2025 7:2 5am Chief Complaint Admit Date Pacer Check Remote November 18, 2024 2:00am L EYE SWELLING, REDNESS January 26, 2025 5:50pm Abdominal pain February 10, 2025 10: 00am Pacer Check Remote February 17, 2025 2:0 0am Follow up March 08, 2025 10: 20am BLOATING, ABD PAIN March 15, 2025 7:4 1am Reason for Visit Admit Date Abdominal pain February 10, 2025 7:2 5am Diarrhea February 10, 2025 7:2 5am Weight loss February 10, 2025 7:2 5am Abdominal pain March 08, 2025 10: 20am Bloating March 08, 2025 10: 20am Diarrhea March 08, 2025 10: 20am Heartburn March 08, 2025 10: 20am Chief Complaint Admit Date L EYE SWELLING, REDNESS January 26, 2025 5:50pm Abdominal pain February 10, 2025 10: 00am Pacer Check Remote February 17, 2025 2:0 0am Follow up March 08, 2025 10: 20am BLOATING, ABD PAIN March 15, 2025 7:4 1am fu April 13, 2025 10:17 am Reason for Visit Admit Date Abdominal pain February 10, 2025 7:2 5am Diarrhea February 10, 2025 7:2 5am Weight loss February 10, 2025 7:2 5am Abdominal pain March 08, 2025 10: 20am Bloating March 08, 2025 10: 20am Diarrhea March 08, 2025 10: 20am Heartburn March 08, 2025 10: 20am Bloating April 13, 2025 10:17 am Periumbilical abdominal pain April 13 025 10:17am Chief Complaint Admit Date L EYE SWELLING, REDNESS January 26, 2025 5:50pm Abdominal pain February 10, 2025 10: 00am Pacer Check Remote February 17, 2025 2:0 0am Follow up March 08, 2025 10: 20am BLOATING, ABD PAIN March 15, 2025 7:4 1am fu April 13, 2025 10:17 am abdominal pain April 23, 2025 12:54 pm Chief Complaint Admit Date L EYE SWELLING, REDNESS January 26, 2025 5:50pm Abdominal pain February 10, 2025 10: 00am Pacer Check Remote February 17, 2025 2:0 0am Follow up March 08, 2025 10: 20am BLOATING, ABD PAIN March 15, 2025 7:4 1am fu April 13, 2025 10:17 am abdominal pain April 23, 2025 12:54 pm ANNUAL IN CLINIC/KRR @ 10:30 May 03 9:44am 6 M FU/OPAL @ 10 May 03, 2025 9:50a m Reason for Visit Admit Date Abdominal pain February 10, 2025 7:2 5am Diarrhea February 10, 2025 7:2 5am Weight loss February 10, 2025 7:2 5am Abdominal pain March 08, 2025 10: 20am Bloating March 08, 2025 10: 20am Diarrhea March 08, 2025 10: 20am Heartburn March 08, 2025 10: 20am Bloating April 13, 2025 10:17 am Periumbilical abdominal pain April 13 025 10:17am Atrial fibrillation May 03, 2025 9:50a m Dizziness May 03, 2025 9:50a 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 May 03, 2025 9:50am Cardiomyopathy May 03, 2025 9:50a m Presence of cardiac defibrillator May 032024 9:50am Thoracic aortic aneurysm without rupture May 03, 2025 9:50am Chief Complaint Admit Date L EYE SWELLING, REDNESS January 26, 2025 5:50pm Abdominal pain February 10, 2025 10: 00am Pacer Check Remote February 17, 2025 2:0 0am Follow up March 08, 2025 10: 20am BLOATING, ABD PAIN March 15, 2025 7:4 1am fu April 13, 2025 10:17 am abdominal pain April 23, 2025 12:54 pm ANNUAL IN CLINIC/KRR @ 10:30 May 03 025 9:44am 6 M FU/OPAL @ 10 May 03, 2025 9:50a m INT LAB ORDERS May 03, 2025 10:57 am Reason for Visit Admit Date Abdominal pain February 10, 2025 7:2 5am Diarrhea February 10, 2025 7:2 5am Weight loss February 10, 2025 7:2 5am Abdominal pain March 08, 2025 10: 20am Bloating March 08, 2025 10: 20am Diarrhea March 08, 2025 10: 20am Heartburn March 08, 2025 10: 20am Bloating April 13, 2025 10:17 am Periumbilical abdominal pain April 13 025 10:17am Hx of atrioventricular node ablation Apr 9:44am Presence of cardiac defibrillator May 032024 9:44am Atrial fibrillation May 03, 2025 9:50a m Dizziness May 03, 2025 9:50a m residential current use of amiodarone May 03, 2025 9:50am Cardiomyopathy May 03, 2025 9:50a m Presence of cardiac defibrillator May 032024 9:50am Thoracic aortic aneurysm without rupture May 03, 2025 9:50am Chief Complaint Admit Date L EYE SWELLING, REDNESS January 26, 2025 5:50pm Abdominal pain February 10, 2025 10: 00am Pacer Check Remote February 17, 2025 2:0 0am Follow up March 08, 2025 10: 20am BLOATING, ABD PAIN March 15, 2025 7:4 1am fu April 13, 2025 10:17 am abdominal pain April 23, 2025 12:54 pm Pacer Check Remote May 03, 2025 9:00a m ANNUAL IN CLINIC/KRR @ 10:30 Bere 9th, 2 025 9:44am 6 M FU/OPAL @ 10 May 03, 2025 9:50a m INT LAB ORDERS May 03, 2025 10:57 am Chief Complaint Admit Date L EYE SWELLING, REDNESS January 26, 2025 5:50pm Abdominal pain February 10, 2025 10: 00am Pacer Check Remote February 17, 2025 2:0 0am Follow up March 08, 2025 10: 20am BLOATING, ABD PAIN March 15, 2025 7:4 1am fu April 13, 2025 10:17 am abdominal pain April 23, 2025 12:54 pm Pacer Check Remote May 03, 2025 9:00a m ANNUAL IN CLINIC/KRR @ 10:30 May 03 025 9:44am 6 M FU/OPAL @ 10 May 03, 2025 9:50a m INT LAB ORDERS May 03, 2025 10:57 am 2 M FU May 18, 2025 9:15 am Reason for Visit Admit Date Abdominal pain February 10, 2025 7:2 5am Diarrhea February 10, 2025 7:2 5am Weight loss February 10, 2025 7:2 5am Abdominal pain March 08, 2025 10: 20am Bloating March 08, 2025 10: 20am Diarrhea March 08, 2025 10: 20am Heartburn March 08, 2025 10: 20am Bloating April 13, 2025 10:17 am Periumbilical abdominal pain April 13 025 10:17am Hx of atrioventricular node ablation Jose Carlos 2024 9:44am Presence of cardiac defibrillator May 032024 9:44am Atrial fibrillation May 03, 2025 9:50a m Dizziness May 03, 2025 9:50a 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 May 03, 2025 9:50am Cardiomyopathy May 03, 2025 9:50a m Presence of cardiac defibrillator May 032024 9:50am Thoracic aortic aneurysm without rupture May 03, 2025 9:50am Bloating May 18, 2025 9:15 am Diarrhea May 18, 2025 9:15 am Fecal urgency May 18, 2025 9:15 am Periumbilical abdominal pain May 18, 2025 9:15am Additional Source Comments (unrecognized sect ion and content) No Status Records FoundNo Status Records FoundNo Status Records Found INFORMATION SOURCE (unrecogn ized section and content) DATE CREATED AUTHOR 10/02/2019 [facility] DATE CREATED AUTHOR AUTHOR'S ORGANIZ ATION 04/05/2024 [facility] DATE CREATED AUTHOR AUTHOR'S ORGANIZ ATION 05/17/2025 [facility] Goals (unrecognized section and content) Goals may be documented in a n alternate sectionGoals may be documented in an alternate sectionGoals may be documented in an alternate sectionGoals may be documented in an alternate sectionGoals may be documented in an alternate sectionGoals may be documented in an alternate sectionGoals may be documented in an alternate sectionGoals may be documented in an alternate sectionGoals may be documented in an alternate sectionGoals may be documented in an alternate sectionGoals may be documented in an alternate sectionGoals may be documented in an alternate sectionGoals may be documented in an alternate sectionGoals may be documented in an alternate sectionGoals may be documented in an alternate sectionGoals may be documented in an alternate sectionGoals may be documented in an alternate sectionGoals may be documented in an alternate sectionGoals may be documented in an alternate sectionGoals may be documented in an alternate sectionGoals may be documented in an alternate sectionGoals may be documented in an alternate sectionGoals may be documented in an alternate sectionGoals may be documented in an alternate sectionGoals may be documented in an alternate sectionGoals may be documented in an alternate sectionGoals may be documented in an alternate sectionGoals may be documented in an alternate sectionGoals may be documented in an alternate sectionGoals may be documented in an alternate sectionGoals may be documented in an alternate sectionGoals may be documented in an alternate sectionGoals may be documented in an alternate sectionGoals may be documented in an alternate sectionGoals may be documented in an alternate sectionGoals may be documented in an alternate sectionGoals may be documented in an alternate sectionGoals may be documented in an alternate sectionGoals may be documented in an alternate section Care Teams (unrecognized sec tion and content) Team Status: Active Member Role Status Dates Dr. Jori Lieberman MD Family Provider Active Dr. Sree Ash MD Primary Care Provider Active Team Status: Inactive Member Role Status Dates Dr. Sree Ash MD Primary Care Provider, Referring Provider Active Dr. Anupam Reece MD Attending Provider Active Team Status: Active Member Role Status Dates Dr. Sree Ash MD Primary Care Provider Active Dr. Anupam Reece MD Attending Provider Active Team Status: Active Member Role Status Dates Dr. Sree Ash MD Primary Care Provider Active Dr. Anupam Reece MD Referring Provider, Other Prov ider Active Dr. Shabbir Pelletier DO Attending Provider Active Team Status: Inactive Member Role Status Dates Dr. Sree Ash MD Primary Care Provider, Attending Provider Active Team Status: Inactive Member Role Status Dates Dr. Sree Ash MD Primary Care Provi [id number], Attending Provider, Referring Provider Active Team Status: Inactive Member Role Status Dates Dr. Sree Ash MD Primary Care Provider Active Dr. Efrain Giron DO Attending Provider, Donna P adam Active Team Status: Inactive Member Role Status Dates Dr. Sree Ash MD Primary Care Provider Active Dr. Anupam Reece MD Attending Provider Active Team Status: Active Member Role Status Dates Dr. Sree Ash MD Primary Care Provider Active Dr. Anupam Reece MD Attending Provider, Referring Provider Active Team Status: Inactive Member Role Status Dates Dr. Sree Ash MD Primary Care Provider Active Dr. Anupam Reece MD Attending Provider, Referring Provider Active Team Status: Active Member Role Status Dates Dr. Sree Ash MD Primary Care Provider Active Dr. Elizabeth Metzger DO Attending Provider Active Team Status: Inactive Member Role Status Dates Dr. Sree Ash MD Primary Care Provider Active Dr. Elizabeth Metzger DO Attending Provider Active Team Status: Active Member Role Status Dates Dr. Sree Ash MD Primary Care Provi abdifatah, Attending Provider, Referring Provider Active Team Status: Active Member Role Status Dates Dr. Sree Ash MD Primary Care Provider, Attending Provider Active Team Status: Inactive Member Role Status Dates Dr. Sree Ash MD Primary Care Provider Active Poppy Colón Active Dr. Clarke Roberts MD Attending Provider, Referring Pro vider Active Team Status: Inactive Member Role Status Dates Dr. Sree Ash MD Primary Care Provider Active Dr. Sander Pittman MD Attending Provider, Referr ing Provider Active Team Status: Inactive Member Role Status Dates Dr. Sree Ash MD Primary Care Provider Active Dr. Efrain Giron DO Emergency Provider Active Team Status: Inactive Member Role Status Dates Dr. Sree Ash MD Primary Care Provider Active Dr. Elizabeth Metzger DO Attending Provider, Referring P rovider Active Team Status: Inactive Member Role Status Dates Dr. Sree Ash MD Primary Care Provider, Referring Provider Active Rashmi Fatima AUTOMAT[employer] DRILLER [employer] REAMER, AUTOMAT[employer] DRILLER [employer] REAMER-C Attending Provider Active Team Status: Inactive Member Role Status Dates Dr. Sree Ash MD Primary Care Provider, Referring Provider Active Poppy Colón Attending Provider Active Team Status: Inactive Member Role Status Dates Dr. Sree Ash MD Primary Care Provider Active Rashmi Fatima [employer]OM[employer] D[employer]AMER, AUTOMAT[employer] DRILLER [employer] REAMER-C Attending Provider, Referring P rovider Active Team Status: Active Member Role Status Dates Dr. Sree Ash MD Primary Care Provider Active Rashmi Fatima AUTOMAT[employer] DRI[employer]ER [employer] REAMER, AUTOMATIC DRILLER AND REAMER-C Attending Provider Active [facility] [employer] Relationship Specialty Start Date End Date Jori Lieberman DO PCP - General Family Medicine 09/28/19 Irwin Walton MD Referring Gastroenterology 06/11/[address] Relationship Specialty Start Date End Date Sree Ash Chi [address] [facility] [address] [place] [address] PCP - General Gerontology 09/30/23 Irwin Walton MD Referring Gastroenterology 06/11/[address] Relationship Specialty Start Date End Date Mihir Sree Jung [address] [facility] [address] [place], [place] [id number] PCP - General Gerontology 09/30/23 Irwin Walton MD Referring Gastroenterology 06/11/17 Team Status: Inactive Member Role Status Dates Dr. Sree Ash MD Primary Care Provider Active Dr. Clarke oRberts MD Attending Provider, Referring Pro vider Active [facility] [address] Justice Relationship Specialty Start Date End Date Sree Ash Chi [address] [place] [address] PCP - General Gerontology 09/30/23 Irwin Walton MD Referring Gastroenterology 06/11/17 Team Status: Active Member Role Status Dates Dr. Sree Ash MD Primary Care Provider, Referring Provider Active Dr. Jimbo Romo MD Attending Provider Active Team Status: Active Member Role Status Dates Dr. Jori Lieberman MD Family Provider Active Dr. Helen Lainez MD Primary Care Provider Active Team Status: Inactive Member Role Status Dates Dr. Helen Lainez MD Primary Care Provider Active Rashmi Fatima [employer]OM[employer] D[employer]ER [employer]AMER, AUTOMATIC DRILLER [employer] REAMER-C Attending Provider, Referring P adam Active Team Status: Inactive Member Role Status Dates Dr. Helen Lainez MD Primary Care Provider, Referrin g Provider Active Poppy Colón Attending Provider Active Team Status: Inactive Member Role Status Dates Dr. Helen Lainez MD Primary Care Provider Active Dr. Liam Carrillo DO Emergency Provider Active Team Status: Inactive Member Role Status Dates Dr. Helen Lainez MD Primary Care Provider Active Poppy Colón Active Dr. Clarke Roberts MD Attending Provider, Referring Pro vider Active Team Status: Inactive Member Role Status Dates Dr. Helen Lainez MD Primary Care Provider Active Dr. Clarke Roberts MD Attending Provider Active Team Status: Active Member Role Status Dates Dr. Helen Lainez MD Primary Care Provider Active Dr. Clarke Roberts MD Attending Provider Active Team Status: Active Member Role Status Dates Dr. Helen Lainez MD Primary Care Provider Active Dr. Efrain Mercado MD Attending Provider Active Team Status: Active Member Role Status Dates Dr. Helen Lainez MD Primary Care Provider Active Rashmi Fatima [employer]OMAT[employer] D[employer]ER [employer] REAMER, AUTOMATIC DRILLER [employer] REAMER-C Attending Provider Active Team Status: Inactive Member Role Status Dates Rashmi Fatima AUTOMAT[employer] D[employer]ER [employer]AMER, AUTOMATIC DRI[employer]ER [employer] REAMER-C Attending Provider, Referring P rovider Active Dr. Helen Lainez MD Primary Care Provider Active Team Status: Inactive Member Role Status Dates Dr. Helen Lainez MD Primary Care Provider Active Dr. Jayy Zhao DO Emergency Provider Active Team Status: Inactive Member Role Status Dates Dr. Helen Lainez MD Primary Care Provider Active Dr. Liam Carrillo DO Attending Provider, Emergency Provider Active Team Status: Active Member Role Status Dates Dr. Helen Lainez MD Primary Care Provider Active Dr. Efrain Mercado MD Attending Provider Active Rashmi Fatima [employer]OMAT[employer] D[employer]ER [employer]AMER, AUTOMATIC DRI[employer]ER [employer] REAMER-C Referring Provider Active Team Status: Inactive Member Role Status Dates Dr. Helen Lainez MD Primary Care Provider Active Dr. Jayy Zhao DO Attending Provider, Emergency P rovider Active [employer] [address] [employer] Relationship Specialty Start Date End Date Helen Lainez MD [address] [place] [id number] PCP - General Family Medicine 02/20/24 Irwin Walton MD Referring Gastroenterology 06/11/[address] Relationship Specialty Start Date End Date Helen Lainez MD [address] [place] [phone] PCP - General Family Medicine 02/20/24 Irwin Walton MD Referring Gastroenterology 06/11/[address] Relationship Specialty Start Date End Date Helen Lainez MD [address] [place] [phone] PCP - General Family Medicine 02/20/24 Irwin Walton MD Referring Gastroenterology 06/11/[address] Relationship Specialty Start Date End Date Helen Lainez MD [address] [place] [phone] PCP - General Family Medicine 02/20/24 Irwin Walton MD Referring Gastroenterology 06/11/17 Team Status: Active Member Role Status Dates Rashmi Fatima NP, [employer]OMAT[employer] D[employer]ER [employer] REAMER-C Attending Provider, Referring P adam Active Dr. Helen Lainez MD Primary Care Provider Active Team Status: Active Member Role Status Dates Dr. Helen Lainez MD Primary Care Provider Active Team Status: Inactive Member Role Status Dates Dr. Helen Lainez MD Primary Care Provider Active Start: October 13, 2024 End: October 13, 2024 Dr. Helen Lainez MD Referring Provider Active Start: October 13, 2024 End: October 13, 2024 NERI Castro Attending Provider Active Start: October 13, 2024 End: October 13, 2024 Team Status: Inactive Member Role Status Dates Dr. Helen Lainez MD Primary Care Provider Active Start: October 13, 2024 End: October 13, 2024 NERI Castro Attending Provider Active Start: October 13, 2024 End: October 13, 2024 NERI Castro Referring Provider Active Start: October 13, 2024 End: October 13, 2024 Team Status: Inactive Member Role Status Dates Dr. Helen Lainez MD Primary Care Provider Active Start: October 15, 2024 End: October 15, 2024 NERI Castro Attending Provider Active Start: October 15, 2024 End: October 15, 2024 NERI Casrto Referring Provider Active Start: October 15, 2024 End: October 15, 2024 Team Status: Inactive Member Role Status Dates Dr. Helen Lainez MD Primary Care Provider Active Start: November 06, 2024 End: November 06, 2024 Dr. Helen Lainez MD Referring Provider Active Start: November 06, 2024 End: November 06, 2024 Dr. Rakesh Granados MD Attending Provider Active Start: November 06, 2024 End: November 06, 2024 Team Status: Inactive Member Role Status Dates Dr. Helen Lainez MD Primary Care Provider Active Start: November 11, 2024 End: November 11, 2024 Dr. Liborio Abarca MD Attending Provider Active Sta rt: November 11, 2024 End: November 11, 2024 Dr. Liborio Abarca MD Emergency Provider Active Sta rt: November 11, 2024 End: November 11, 2024 Team Status: Inactive Member Role Status Dates Dr. Helen Lainez MD Primary Care Provider Active Start: November 18, 2024 End: November 18, 2024 Dr. Clarke Roberts MD Attending Provider Active S tart: November 18, 2024 End: November 18, 2024 Dr. Clarke Roberts MD Referring Provider Active S tart: November 18, 2024 End: November 18, 2024 Team Status: Inactive Member Role Status Dates Dr. Helen Lainez MD Primary Care Provider Active Start: January 26, 2025 End: January 26, 2025 Dr. Efrain Giron DO Emergency Provider Active Start: January 26, 2025 End: January 26, 2025 Team Status: Inactive Member Role Status Dates Dr. Helen Lainez MD Primary Care Provider Active Start: February 10, 2025 End: February 10, 2025 Dr. Helen Lainez MD Referring Provider Active Start: February 10, 2025 End: February 10, 2025 Dr. Juan Diego Noriega DO Attending Provider Active Start: February 10, 2025 End: February 10, 2025 Team Status: Active Member Role Status Dates Dr. Helen Lainez MD Primary Care Provider Active Start: February 10, 2025 Dr. Helen Lainez MD Referring Provider Active Start: February 10, 2025 Dr. Juan Diego Noriega DO Attending Provider Active Start: February 10, 2025 Dr. Juan Diego Noriega DO Other Provider Active St art: February 10, 2025 Team Status: Inactive Member Role Status Dates Dr. Helen Lainez MD Primary Care Provider Active Start: January 26, 2025 End: January 26, 2025 Dr. Efrain Giron DO Attending Provider Active Start: January 26, 2025 End: January 26, 2025 Dr. Efrain Giron DO Emergency Provider Active Start: January 26, 2025 End: January 26, 2025 Team Status: Active Member Role Status Dates Dr. Helen Lainez MD Primary Care Provider Active Start: February 10, 2025 Dr. Bart Rodgers MD Attending Provider Active Start: February 10, 2025 Dr. Bart Rodgers MD Referring Provider Active Start: February 10, 2025 Team Status: Inactive Member Role Status Dates Dr. Helen Lainez MD Primary Care Provider Active Start: February 17, 2025 End: February 17, 2025 Dr. Clarke Roberts MD Attending Provider Active S tart: February 17, 2025 End: February 17, 2025 Dr. Clarke Roberts MD Referring Provider Active S tart: February 17, 2025 End: February 17, 2025 Team Status: Inactive Member Role Status Dates Dr. Helen Lainez MD Primary Care Provider Active Start: March 08, 2025 End: March 08, 2025 Dr. Helen Lainez MD Referring Provider Active Start: March 08, 2025 End: March 08, 2025 NERI Castro Attending Provider Active Start: March 08, 2025 End: March 08, 2025 Team Status: Inactive Member Role Status Dates Dr. Helen Lainez MD Primary Care Provider Active Start: March 15, 2025 End: March 15, 2025 NERI Castro Attending Provider Active Start: March 15, 2025 End: March 15, 2025 NERI Castro Referring Provider Active Start: March 15, 2025 End: March 15, 2025 Team Status: Inactive Member Role Status Dates Dr. Helen Lainez MD Primary Care Provider Active Start: April 13, 2025 End: April 13, 2025 Dr. Helen Lainez MD Referring Provider Active Start: April 13, 2025 End: April 13, 2025 Yoko Blas NP-C Attending Provider Active Start: April 13, 2025 End: April 13, 2025 Team Status: Inactive Member Role Status Dates Dr. Helen Lainez MD Primary Care Provider Active Start: April 23, 2025 End: April 23, 2025 Yoko Blas NP-C Attending Provider Active Start: April 23, 2025 End: April 23, 2025 Yoko Blas NP-C Referring Provider Active Start: April 23, 2025 End: April 23, 2025 Team Status: Active Member Role Status Dates Dr. Helen Lainez MD Primary Care Provider Active Start: May 03, 2025 Dr. Helen Lainez MD Referring Provider Active Start: May 03, 2025 Poppy Colón Attending Provider Active Start: 2024 Team Status: Inactive Member Role Status Dates Dr. Helen Lainez MD Primary Care Provider Active Start: May 03, 2025 End: May 03, 2025 Dr. Helen Lainez MD Referring Provider Active Start: May 03, 2025 End: May 03, 2025 Rahsmi Fatima [employer], [employer]-C Attending Provider Active Start: May 03, 2025 End: May 03, 2025 Team Status: Inactive Member Role Status Dates Dr. Helen Lainez MD Primary Care Provider Active Start: May 03, 2025 End: May 03, 2025 Dr. Helen Lainez MD Referring Provider Active Start: May 03, 2025 End: May 03, 2025 Poppy Colón Attending Provider Active Start: 2024 End: May 03, 2025 Team Status: Active Member Role Status Dates Dr. Helen Lainez MD Primary Care Provider Active Start: May 03, 2025 Rashmi Fatima [employer]ER, [employer]ER [employer]ER-C Attending Provider Active Start: May 03, 2025 Rashmi Fatima [employer]ER, [employer]ER-C Referring Provider Active Start: May 03, 2025 Team Status: Inactive Member Role Status Dates Dr. Helen Lainez MD Primary Care Provider Active Start: May 03, 2025 End: May 03, 2025 Rashmi Fatima [employer], [employer]-C Attending Provider Active Start: May 03, 2025 End: May 03, 2025 Rashmi Fatima NP, [employer]-C Referring Provider Active Start: May 03, 2025 End: May 03, 2025 Team Status: Inactive Member Role Status Dates Dr. Helen Lainez MD Primary Care Provider Active Start: May 03, 2025 End: May 03, 2025 Dr. Clarke Roberts MD Attending Provider Active S tart: May 03, 2025 End: May 03, 2025 Team Status: Inactive Member Role Status Dates Dr. Helen Lainez MD Primary Care Provider Active Start: May 18, 2025 End: May 18, 2025 Dr. Helen Lainez MD Referring Provider Active Start: May 18, 2025 End: May 18, 2025 Yoko Blas NP-C Attending Provider Active Start: May 18, 2025 End: May 18, 2025 Source Comments (unrecognize d section and content) In the event this informatio n is protected by the Federal Confidentiality of Alcohol and Drug Abuse Patient Records regulations: The Federal rules restrict any use of the information to criminally investigate or prosecute any alcohol or drug abuse patient.[facility] the event this information is protected by the Federal Confidentiality of Alcohol and Drug Abuse Patient Records regulations: The Federal rules restrict any use of the information to criminally investigate or prosecute any alcohol or drug abuse patient.[facility] the event this information is protected by the Federal Confidentiality of Alcohol and Drug Abuse Patient Records regulations: The Federal rules restrict any use of the information to criminally investigate or prosecute any alcohol or drug abuse patient.[facility] the event this information is protected by the Federal Confidentiality of Alcohol and Drug Abuse Patient Records regulations: The Federal rules restrict any use of the information to criminally investigate or prosecute any alcohol or drug abuse patient.[facility] the event this information is protected by the Federal Confidentiality of Alcohol and Drug Abuse Patient Records regulations: The Federal rules restrict any use of the information to criminally investigate or prosecute any alcohol or drug abuse patient.[facility] the event this information is protected by the Federal Confidentiality of Alcohol and Drug Abuse Patient Records regulations: The Federal rules restrict any use of the information to criminally investigate or prosecute any alcohol or drug abuse patient.[facility] the event this information is protected by the Federal Confidentiality of Alcohol and Drug Abuse Patient Records regulations: The Federal rules restrict any use of the information to criminally investigate or prosecute any alcohol or drug abuse patient.[facility] the event this information is protected by the Federal Confidentiality of Alcohol and Drug Abuse Patient Records regulations: The Federal rules restrict any use of the information to criminally investigate or prosecute any alcohol or drug abuse patient.[facility] the event this information is protected by the Federal Confidentiality of Alcohol and Drug Abuse Patient Records regulations: The Federal rules restrict any use of the information to criminally investigate or prosecute any alcohol or drug abuse patient.[facility] the event this information is protected by the Federal Confidentiality of Alcohol and Drug Abuse Patient Records regulations: The Federal rules restrict any use of the information to criminally investigate or prosecute any alcohol or drug abuse patient.[facility] Reason for Visit (unrecogniz ed section and content) Reason Comments Orders Reason Comments New Patient Re-establish care di charli gen change Reason Comments Preparations For Procedures Reason Comments Wound Check Reason Comments Pre-Op Visit Reason Onset Date Comments Wound Check 03/27/2024 FOR RECORDS PERTAINING TO PATIENTS WHO ARE [...] BE BASED ON THE PRIMARY CLINICAL RECORDS. [facility]. provides no warranty or guarantee of the accuracy or completeness of information in this document.
[2025-05-21 17:08] LABS: Calprotectin, Stool 66 ug/g (0-120)
[2025-06-27 12:03] LABS: Giardia Lamblia, Stool EIA Negative
== END | disposition home or self-care (01) ==
LOC: LABSPEC 07:27
PROVIDERS: PCP Family Medicine; Referring Provider Nurse Practitioner Acute Care; Visit Provider Nurse Practitioner Acute Care
DX: R10.33 Periumbilical pain (principal); R15.2 Fecal urgency; R19.7 Diarrhea, unspecified; R14.0 Abdominal distension (gaseous)
CPT/HCPCS: 83993; 87177; 87209; 87329; 87493

== ENCOUNTER → 2025-05-25 | Outpatient (CLI) | payer MEDICARE, SELFPAY ==
--- NOTE | 2025-05-25 07:45 | RAD_ITS ---
PROCEDURE: UPPER GI/W SMALL BOWEL 05/25/2025 REASON FOR EXAM: ABNORMAL CT, CANNOT HAVE MRE TECHNIQUE: Double-contrast upper GI series, plus small bowel (follow-through) series (combined dictation). COMPARISON: None. FINDINGS: Aspiration was seen during the double contrast oral administration. Normal appearance of the esophageal mucosa is seen. No mass or area of persistent narrowing. A widely patent esophagogastric junction was seen. Recurrent gastroesophageal reflux to the level of the proximal esophagus was noted. Imaging of the stomach and duodenum reveals no abnormality. Following this, approximately 240 mL of thin barium was orally administered, and sequential imaging obtained through 60 minutes. Normal mucosa of the jejunum and ileum was seen. Contrast reached the cecum by the 60 minute film. No mass or mass effect was seen. RAD/Upper GI/w Small Bowel IMPRESSION: 1. Gastroesophageal reflux to the level of the proximal esophagus. 2. Aspiration was seen with double contrast oral administration. 3. No gastric or duodenal abnormality was noted. 4. Negative small-bowel series. Reading Location: [place] [id number]
--- NOTE | 2025-05-25 07:45 | RAD_ITS ---
PROCEDURE: UPPER GI/W SMALL BOWEL 05/25/2025 REASON FOR EXAM: ABNORMAL CT, CANNOT HAVE MRE TECHNIQUE: Double-contrast upper GI series, plus small bowel (follow-through) series (combined dictation). COMPARISON: None. FINDINGS: Aspiration was seen during the double contrast oral administration. Normal appearance of the esophageal mucosa is seen. No mass or area of persistent narrowing. A widely patent esophagogastric junction was seen. Recurrent gastroesophageal reflux to the level of the proximal esophagus was noted. Imaging of the stomach and duodenum reveals no abnormality. Following this, approximately 240 mL of thin barium was orally administered, and sequential imaging obtained through 60 minutes. Normal mucosa of the jejunum and ileum was seen. Contrast reached the cecum by the 60 minute film. No mass or mass effect was seen. RAD/Upper GI/w Small Bowel IMPRESSION: 1. Gastroesophageal reflux to the level of the proximal esophagus. 2. Aspiration was seen with double contrast oral administration. 3. No gastric or duodenal abnormality was noted. 4. Negative small-bowel series. Reading Location: [place] [address]
== END | disposition home or self-care (01) ==
LOC: RAD 07:45
PROVIDERS: PCP Family Medicine; Referring Provider Nurse Practitioner Acute Care; Visit Provider Nurse Practitioner Acute Care
DX: R10.33 Periumbilical pain (principal); R14.0 Abdominal distension (gaseous); R15.2 Fecal urgency; R19.7 Diarrhea, unspecified
CPT/HCPCS: 74246; 74248

== ENCOUNTER 2025-06-10 08:15 | Emergency (ER) | payer OTHER, SELFPAY ==
[2025-06-10 08:20] VITALS: BP 123/79; PULSE 79; RESP 18; TEMP 36.5; O2SAT 99; BMI 19.6
--- NOTE | 2025-06-10 09:13 | EDS_ITS ---
HPI History of Present Illness Chief Complaint: Wound Narrative Narrative: Patient is a 79-year-old male with past medical history of COPD, anxiety, cancer, atrial fibrillation on Eliquis, mitral valve prolapse, ICD, supraventricular tachycardia, depression, cardiomyopathy, hypertension, hyperlipidemia who presented to the emergency department with a chief complaint of left toe wound bleeding. Patient states that he picked a scab earliest morning and could not get the bleeding to stop therefore he came here for further evaluation management. Patient notes that the wound has been there for a significant amount of time now and has not followed up with anybody about this. [facility] Medical History COPD (chronic obstructive pulmonary disease) Loss of hearing Cancer Anxiety Alcohol use Low iron Back pain History of IBS Former smoker History of echocardiogram History of stress test Essential tremor Chronic a-fib Essential hypertension Wears glasses Arthritis Thoracic aortic aneurysm Syncope MVP (mitral valve prolapse) Shortness of breath on exertion Cardiology follow-up encounter Pacemaker ICD (implantable cardioverter-defibrillator) in place Long-term use of high-risk medication Near syncope SVT (supraventricular tachycardia) Nonrheumatic mitral (valve) prolapse Premature ventricular contraction Colitis Depression Thoracic aortic aneurysm without rupture Cardiomyopathy Ventricular tachycardia Hyperlipidemia Hypertension Home Medications ?Medication ?Instructions ?Recorded ?Last Taken ?Type vit C 250 mg-vit E 200 unit-zinc 1 cap PO BID 07/30/23 Unknown History ox 12.5 [id number] capsule (ICaps AREDS2) mecobalamin (vitamin B12) 1,000 1,000 mcg PO DAILY 06/1702/09/25 History mcg chewable tablet apixaban 5 mg tablet (Eliquis) 5 mg PO BID #180 tabs 0 07/30/24 02/07/25 Rx empagliflozin 25 mg tablet 25 mg PO DAILY 10/13/24 History (Jardiance) metoprolol succinate 25 mg 12.5 mg PO QHS 02/09/25 Unk nown History tablet,extended release 24 hr amiodarone 200 mg tablet 100 mg (1/2 x 200 mg) PO KANDI LY Pt 02/16/25 Unknown Rx awaiting mail in RX, he is OUT of medication #45 tabs loperamide 2 mg capsule (Imodium 2 mg PO .QOD 03/08/25 Unknown History A-D) simvastatin 20 mg tablet 20 mg PO QHS cholesterol #90 tabs 03/24/25 Unknown Rx cholecalciferol (vitamin D3) 1,250 1,250 mcg PO QWEEK 05/03/25 Unknown History mcg (50,000 unit) capsule sacubitril 97 mg-valsartan 103 mg 0.5 tab PO BID 05/03 Unknown History tablet (Entresto) wheat dextrin 1 gram tablet g PO .x3week 05/03/25 Unkn own History (Benefiber (wheat dextrin)) pantoprazole 40 mg tablet,delayed 40 mg PO QDAY #90 ta bs 06/09/25 Unknown Rx release Allergy/AdvReac Type Severity Reaction Status Date / Time No Known Allergies Allergy Verified 06/10/25 08:40 Family History Father Heart disease Sister Heart disease Brother Heart disease Mother Pancreas (digestive gland) works poorly Surgical History Hx of colonoscopy History of total left knee replacement History of bilateral cataract extraction Hx of atrioventricular node ablation History of partial nephrectomy (07/02/18) Presence of cardiac defibrillator History of tonsillectomy Social History household members: none current occupational status: retired Smoking Status: Former smoker how long ago did patient quit smokin alcohol intake: never substance use type: does not use caffeine: Yes Type: coffee Number of servings: 2 frequency: 1-2 times per week ROS ROS ED ROS Narrative Constitutional: Denies any lightness or dizziness Cardiovascular: Denies chest pain Neurological: Denies any numbness, weakness, tingling Skin: Complains of wound on toe as noted above EXAM Physical Exam Narrative Exam Narrative: General: Patient lying in bed rest comfortably did not appear to be in acute distress Head: Atraumatic, normocephalic Eyes: PERRL bilaterally, EOMI Black no conjunctival injection noted Neck: Soft, supple, trachea midline Extremities: +4/5 strength noted in the bilateral upper and lower extremities, DP pulses +2/4 in the bilateral lower extremities Neurological: Patient Commands knew that he was at [facility] the year is 2024 Skin: Patient has small area just proximal to the fourth toe with active bleeding noted this does not appear to be arterial in nature and is venous Const Vital Signs: 06/10/25 08:20 06/10/25 10:33 Temperature 97.7 F L Temperature Source Oral Pulse Rate 79 70 Respiratory Rate 18 18 Blood Pressure 123/79 H 124/78 H Blood Pressure Mean 93 93 Pulse Ox 99 99 Oxygen Delivery Method Room Air Room Air MDM MDM MDM Narrative Medical decision making narrative: Patient is a 79-year-old male who presented to the emergency department chief complaint of left toe wound that he cannot get to stop bleeding. On the differential diagnosis includes but not limited to bleeding secondary to being on Eliquis, osteomyelitis. Once the workup is obtained reviewed he will be reevaluated. Applied Surgicel with pressure dressing to the wound we will reevaluate. His x-ray of his foot reviewed by myself by radiology and showed absence of the distal phalanx of the fifth digit there is cortical thickening of the distal second metatarsal which may represent an old healed fracture or stress reaction. No acute fracture or dislocation identified. Reevaluation the patient and the pressure dressing with Surgicel was removed and he had persistent oozing did reevaluate the wound and does appear to be open decently with active bleeding therefore a stitch was placed by physician delinquent tax collection assistant Siri see her note for procedure details. Reevaluation the patient again he had no active bleeding he was advised to keep an eye on signs infection such as purulent drainage or surrounding redness. He is advised to have the sutures removed in approximately 5 days by his primary care physician. He is encouraged return with worsening symptoms or other concerns. He is agreeable to plan all course concerns answered is discharged home in stable condition. Radiography Diagnostic Testing: Clinical Impression(s) from Imaging Studies Foot X-Ray 06/10/25 09:30 IMPRESSION: There is absence of the distal phalanx of the 5th digit. There is cortical thickening of the distal 2nd metatarsal which may represent an old healed fracture or stress reaction. No acute fracture or dislocation is identified. [facility] Dis[facility] Triage Chief Complaint: Wound ED Provider: Bay Mckenzie Dx/Rx/DC Orders Clinical Impression: Open wound of left foot, History of atrial fibrillation, HX: anticoagulation, History of chronic kidney disease Prescriptions: No Action ICaps AREDS2 250 mg-200 unit -12.5 mg-1 mg capsule 1 cap PO BID mecobalamin (vitamin B12) 1,000 mcg tablet,chewable 1,000 mcg PO DAILY Eliquis 5 mg tablet 5 mg PO BID Qty: 180 4RF Jardiance 25 mg tablet 25 mg PO DAILY cholecalciferol (vitamin D3) 1,250 mcg (50,000 unit) capsule 1,250 mcg PO QWEEK Entresto 97-103 mg tablet 0.5 tab PO BID loperamide [Imodium A-D] 2 mg capsule 2 mg PO .QOD Benefiber (wheat dextrin) 1 gram tablet PO .x3week metoprolol succinate 25 mg tablet extended release 24 hr 12.5 mg PO QHS amiodarone 200 mg tablet 100 mg PO DAILY Qty: 45 3RF Rx Instructions: heart rate simvastatin 20 mg tablet 20 mg PO QHS Qty: 90 3RF pantoprazole 40 mg tablet,delayed release (DR/EC) 40 mg PO QDAY Qty: 90 1RF Rx Instructions: take once daily every morning on an empty stomach Primary Care Provider: Helen Lainez Referrals: Helen Lainez MD [Primary Care Provider] - Activity Restrictions/Additional Instructions: Follow-up your doctor in outpatient setting. Have the suture removed in approximately 5 days. Return with worsening symptoms or any other concerns. Watch out for signs of infection such as surrounding redness or purulent drainage. Print Language: Citizen Of [place] Disposition Disposition: Home, Self Care
--- NOTE | 2025-06-10 09:30 | RAD_ITS ---
PROCEDURE: FOOT MIN 3 VIEWS 06/10/2025 REASON FOR EXAM: WOUND BY PROXIMAL FOURTH TOE TECHNIQUE: FOOT MIN 3 VIEWS COMPARISON: None FINDINGS: There is absence of the distal phalanx of the 5th digit. There is cortical thickening of the distal 2nd metatarsal which may represent an old healed fracture or stress reaction. No acute fracture or dislocation is identified. No suspicious lytic or blastic lesions are identified. The Lisfranc articulation is aligned. Benign- appearing calcaneal spurs are noted. There is no focal soft tissue abnormality or visible radiopaque foreign body. RAD/Foot min 3 Views IMPRESSION: There is absence of the distal phalanx of the 5th digit. There is cortical thickening of the distal 2nd metatarsal which may represent a n old healed fracture or stress reaction. No acute fracture or dislocation is identified. Reading Location: [place]
[2025-06-10 10:33] VITALS: BP 124/78; PULSE 70; RESP 18; O2SAT 99
[2025-06-10] MEDS: Lidocaine 1% (20 ml mdv) 20 ML Vial 10 ML INFILT (10:54)
[2025-06-10 12:00] VITALS: BP 107/54; PULSE 77; RESP 16; O2SAT 98
[2025-06-10 13:26] VITALS: BP 119/75; PULSE 70; RESP 16; TEMP 36.2; O2SAT 100
== END 2025-06-10 13:22 | disposition home or self-care (01) ==
PROVIDERS: Emergency Provider Emergency Medicine; PCP Family Medicine; Visit Provider Emergency Medicine
DX: S91.302A Unspecified open wound, left foot, initial encounter (principal); J44.9 Chronic obstructive pulmonary disease, unspecified; I48.91 Unspecified atrial fibrillation; I42.9 Cardiomyopathy, unspecified; I12.9 Hypertensive chronic kidney disease with stage 1 through stage 4 chronic kidney disease, or unspecified chronic kidney disease; Z87.891 Personal history of nicotine dependence; E78.5 Hyperlipidemia, unspecified; N18.9 Chronic kidney disease, unspecified; F41.9 Anxiety disorder, unspecified; Z79.01 Long term (current) use of anticoagulants; Z90.710 Acquired absence of both cervix and uterus; X58.XXXA Exposure to other specified factors, initial encounter; D69.9 Hemorrhagic condition, unspecified; Z90.5 Acquired absence of kidney; Z95.810 Presence of automatic (implantable) cardiac defibrillator
CPT/HCPCS: 12001; 73630; 99285

== ENCOUNTER → 2025-07-23 | Outpatient (CLI) | payer MEDICARE, SELFPAY ==
--- NOTE | 2025-07-23 09:47 | VDLE_ITS ---
Reason For Study Reason For Study: LLE Pain RIGHT LEFT CFV is compressible, spontaneous, phasic, competent CFV is compressible, spontaneous, phasic, competent, and demonstrates normal augmentation. and demonstrates normal augmentation. Procedure FV is compressible, spontaneous, phasic, competent This is a venous duplex using B-mode, color flow and and demonstrates normal augmentation. spectral Doppler. POP V is compressible, spontaneous, phasic, competent Exam performed in department. and demonstrates normal augmentation. The exam was diagnostic. T/P Trunk is compressible. Patient was scanned in reverse Trendelenburg position PTV is compressible. during reflux assessment. LT PerV is compressible. SFJ is INCOMPETENT and measures 0.67 cm. GSV proximal thigh measures 0.63 x 0.66 cm. GSV at knee measures 0.52 x 0.55 cm. GSV INCOMPETENT throughout for greater than 0.5 seconds. Bright intraluminal echoes noted within Rt GSV at the knee. Consistent with CHRONIC SVT. ASV proximal calf is INCOMPETENT for greater than 0.5 seconds and measures 0.47 x 0.59 cm. Perforating Vessel mid calf is INCOMPETENT for greater than 0.5 seconds and measures 0.42 cm. Varicose veins noted throughout calf branching off of GSV at prox calf and air cargo specialist at mid calf. SSV mid calf is competent and measures 0.30 x 0.29 cm. VL/Venous Duplex US, Unilateral Interpretation Summary Deep veins of the left lower extremity are patent and compressible segmentally. There is no evidence of left lower extremity deep vein thrombosis. 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 Positive for reflux in the left saphenofemoral junction, great saphenous vein t hroughout, accessory saphenous vein in calf, air cargo specialist in mid calf. Ordering Physician: Teresa Che Referring Physician: Helen Lainez Performed By: Isaak Tesfaye RVT
== END | disposition home or self-care (01) ==
LOC: CVS 09:46
PROVIDERS: PCP Family Medicine; Referring Provider Physician Assistant; Visit Provider Physician Assistant
DX: I87.2 Venous insufficiency (chronic) (peripheral) (principal); I83.892 Varicose veins of left lower extremity with other complications
CPT/HCPCS: 93971

== ENCOUNTER → 2025-08-05 | Outpatient (CLI) | payer MEDICARE, SELFPAY ==
[2025-08-05 12:47] LABS: Hematocrit 45.6 % (40-54); Hemoglobin 14.7 g/dL (13.0-16.5); Immature Granulocytes Count 0.020 X10^3/uL (0.0-0.0); Mean Corp Hgb Conc 32.2 g/dL (32-36); Mean Corpuscular Volume 92.9 fL (80-94); Mean Platelet Vol. 11.1 fl (6.2-12.0); NRBC Flagged by Analyzer 0 % (0-5); POSITIVE COUNT YES; Platelet Count 89 K/mm3 (150-450); RBC Distribution Width CV 13.6 % (11.6-14.6); RBC Distribution Width SD 47.0 fl (35.1-43.9); Red Blood Count 4.91 M/mm3 (4.6-6.2); White Blood Count 5.4 K/mm3 (4.4-11.0)
[2025-08-05 14:45] LABS: Anion Gap 12 (5-15); BUN 18 mg/dL (4-19); BUN/Creat Ratio 13.1 RATIO (10-20); Calcium,Total 9.5 mg/dL (7.6-11.0); Carbon Dioxide 24.4 mmol/L (21.0-32.0); Chloride 104 mmol/L (98-108); Free T3 2.8 pg/mL (2.18-3.98); Glucose 95 mg/dL (70-99); Potassium 4.6 mmol/L (3.3-5.1); Pro- Brain NATRIURETIC PEPTIDE 295 pg/mL (<=1800); Vitamin D,25 Hydroxy 41.7 ng/mL (30-100)
== END | disposition home or self-care (01) ==
LOC: LAB 12:12
PROVIDERS: PCP Family Medicine; Referring Provider Nurse Practitioner Gerontology; Visit Provider Nurse Practitioner Gerontology
DX: R06.02 Shortness of breath (principal); R53.83 Other fatigue; E55.9 Vitamin D deficiency, unspecified
CPT/HCPCS: 36415; 80048; 82306; 83880; 84439; 84443; 84481; 85025

== ENCOUNTER → 2025-08-06 | Outpatient (CLI) | payer MEDICARE, SELFPAY ==
--- NOTE | 2025-08-06 09:20 | SP.MBSS_ITS ---
Modified Barium Swallow Patient Information Study Date: 08/06/25 Study Time: 09:20 Direct Billable Minutes: 103 Total Minutes procedure & reportin Diagnosis: Heartburn R12, Hoarseness of voice R49.0 Referring Physician: Yoko Blas Reason for Referral: The patient follow w/ [facility] for management of periumbilical abdominal discomfort and diarrhea. Per OV note on 07/22/2025, UGI/SBFT revealed reflux to the upper esophagus with aspiration. He does endorse choking with solids and liquids 2-3x a week. No history of aspiration pneumonia. He also c/o hoarseness and denies any prior ENT eval. DONN Castro ordered MBSS and ENT referral for further work up. Patient provided additional hx re: concerns for dysphagia. He reports swallowing difficulty characterized by pills and foods becoming hung up in his throat and esophagus. He denies difficulty swallowing liquids typically despite reflux aspiration on recent esophagram. He denies hx of choking, regurgitation of food/drink/pills, or odynophagia. He avoids certain foods due to chewing difficulty, including hard meats and vegetables. He consumes fork-cut foods and sometimes chopped foods. Swallowing difficulty occurs ~1-2X/week and has been ongoing for a few years. Of note, last night he had a bad night w/ reflux and vomiting. He also reports diarrhea has returned. Medical History: Medical History COPD (chronic obstructive pulmonary disease) Loss of hearing Cancer Anxiety Alcohol use Low iron Back pain History of IBS Former smoker History of echocardiogram History of stress test Essential tremor Chronic a-fib Essential hypertension Wears glasses Arthritis Thoracic aortic aneurysm Syncope MVP (mitral valve prolapse) Shortness of breath on exertion Cardiology follow-up encounter Pacemaker ICD (implantable cardioverter-defibrillator) in place Long-term use of high-risk medication Near syncope SVT (supraventricular tachycardia) Nonrheumatic mitral (valve) prolapse Premature ventricular contraction Colitis Depression Thoracic aortic aneurysm without rupture Cardiomyopathy Ventricular tachycardia Hyperlipidemia Hypertension Surgical History Hx of colonoscopy History of total left knee replacement History of bilateral cataract extraction Hx of atrioventricular node ablation History of partial nephrectomy (07/02/18) Presence of cardiac defibrillator History of tonsillectomy Current Diet Ordered: Easy to Chew textures / Thin liquids Dentition: Natural Teeth (Lower dentition) and Missing Teeth (No upper dentition) Mental Status: WNL Respiratory Status: Oxygenating on Room Air Penetration-Aspiration Scale Penetration-Aspiration Scale: OBJECTIVE ASSESSMENT OF SWALLOW FUNCTION (QUANTITATIVE ? PER TRIAL): PENETRATION / ASPIRATION SCALE (XAVIER): 1 = does not enter airway 2 = enters airway/above vocal folds/ejected 3 = enters airway/above vocal folds/not ejected 4 = enters airway/contacts vocal folds/ejected 5 = enters airway/contacts vocal folds/not ejected 6 = enters airway/below vocal folds/ejected 7 = enters airway/below vocal folds/not ejected despite effort 8 = enters airway/below vocal folds/no effort VIDEOFLOROSCOPIC SCALE SCORE (XAVIER): Grade I = aspiration of material that has penetrated into the laryngeal vestibule, intact cough reflex Grade II = aspiration < 10 % of the bolus, intact cough reflex Grade III = aspiration of < 10 % of the bolus, reduced cough reflex or aspiration of > 10 % of the bolus, intact cough reflex Grade IV = aspiration of > 10 % of the bolus, reduced cough reflex Penetration-Aspiration Scale Score Thin Liquid via teaspoon: Result: 1= does not enter airway Thin Liquid via teaspoon Trial 2: Result: 1= does not enter airway Thin Liquid via large single sip: cup: Result: 2= enter airway/above vocal folds/ejected Thin Liquid via sequential sips: cup: Result: 2= enter airway/above vocal folds/ejected Comment: Esophageal screen - Retention in the middle and lower esophagus. Pudding via teaspoon: Result: 1= does not enter airway Comment: Esophageal screen - Complete clearance. Trace post prandial laryngeal penetration of residues of previous trials. 1/2 Cookie: Result: 1= does not enter airway Comment: Esophageal screen - Retention in the middle and lower esophagus. Thin Liquid via single sip: straw: Result: 2= enter airway/above vocal folds/ejected Comment: Esophageal screen - Slowed, but eventual clearance of cookie and barium liquid residues through the UES. Barium Tablet w/ Sequential Sips of Thin Liquid via straw: Result: 3= enters airways/above vocal folds/not ejected Comment: Esophageal screen - Barium tablet appeared to clear through the LES (difficult to fully confirm w/ barium liquids) w/ retention and retrograde flow of barium liquid to the upper esophagus. Fluoroscopy turned on again ~40 seconds later to check esophageal clearance and the barium liquid was just fully emptying through the LES. Barium Tablet w/ Barium Pudding: Result: 1= does not enter airway Comment: Esophageal screen - Retention of barium pudding in the middle and lower esophagus. Retention of barium tablet in the middle esophagus. Single liquid wash of water fully cleared the pudding and tablet through the LES. Oral Phase Labial Seal: Interlabial escape, no progression to anterior lip Tongue Control During Bolus Hold: Posterior escape of less than half of bolus (sequential thin) Bolus Preparation/Mastication: Slow prolonged chewing/mashing with complete recollection Bolus Transport/Lingual Motion: Slowed tongue motion Oral Residue: Residue collection on oral structures Pharyngeal Phase Initiation of Pharyngeal Swallow: Bolus head in pyriforms (sequential thin) Soft Palate Elevation: Trace column of contrast/air between soft palate and pharyngeal wall Laryngeal Elevation: Partial superior movement thyroid cart/partial apprx aryt- epig petiole Anterior Hyoid Excursion: Partial anterior movement Epiglottic Movement: Partial inversion Laryngeal Vestibule Closure at Height of Swallow: Incomplete; narrow column of air/contrast in laryngeal vestibule Pharyngeal Stripping Wave: Present - diminished Pharyngoesophageal Segment Opening: Parital distension and partial duration; parital obstruction of flow (trace retention of barium in the UES) Tongue Base Retraction: Wide column of contrast between tongue base & post. pharyngeal wall (barium tablet) Pharyngeal Residue: Majority of contrast within or on pharyngeal structures (Barium tablet w/ barium liquid on the first swallow, fully cleared w/ second swallow of barium liquid) Esophageal Phase Esophageal Clearance: Esophageal retention w/ retrograde flow below pharyngoesophageal seg. Diagnosis/Impression Diagnosis: Esophageal dysphagia R13.14; Mild oropharyngeal dysphagia R13.12 MBS Impressions: The oral phase is marked by... -Decreased bolus control only noted w/ sequential sips of thin liquids w/ premat ure posterior loss of liquid to the pharynx. -Slowed tongue motion for A-P transport. -Slowed, but complete mastication of cookie. -Mild oral residues w/ independent use of a second swallow as needed to mostly clear the oral cavity. The pharyngeal phase is marked by... -Decreased pharyngeal motility most notable w/ barium tablet d/t decreased TB retraction and pharyngeal stripping wave. A second swallow and liquid wash fully cleared the tablet through the UES. Otherwise, mild pharyngeal residues of cookie and liquids were observed during the assessment. -Mildly decreased airway closure due to decreased anterior hyoid excursion, laryngeal elevation, and partial epiglottic inversion. -Laryngeal penetration w/o complete ejection w/ sequential sips of liquids. Post prandial laryngeal penetration of barium residues 1X. No aspiration observed. Pt is at increased risk for aspiration during the swallow w/ quick rate of intake of liquids. The esophageal phase is marked by... -Sequential sips of thin liquids - Retention in the middle and lower esophagus. -1/2 Cookie - Retention in the middle and lower esophagus, which slowly cleared through the LES w/ use of liquid wash. -Barium tablet w/ barium liquid - Barium tablet appeared to clear through the LES (difficult to fully confirm w/ barium liquids) w/ retention and retrograde flow of barium liquid to the upper esophagus. Fluoroscopy turned on again ~40 seconds later to check esophageal clearance and the barium liquid was just fully emptying through the LES. -Barium tablet w/ barium pudding - Retention of barium pudding in the middle and lower esophagus. Retention of barium tablet in the middle esophagus. Single liquid wash of water fully cleared the pudding and tablet through the LES. High risk for reflux aspiration. Recommendations Diet: Easy to Chew Textures and Thin Liquids Comment: Pills whole in puree (applesauce/pudding/yogurt) w/ single liquid wash after each pill. If sensation of retention or reflux despite use of liquid washes, stop meal and resume at a later time. Compensatory Strategies: Small Bites, Small Sips (Sips one at a time), Slow Rate, Alternate bites/solids and sips/liquids (Take a sip after every 1-2 bites) and Sitting upright (During and 60min after po intake) Recommend Repeat Modified Barium Swallow: TBD Need for Skilled Speech Therapy Services: Yes Comment: Train the patient in strategies to decrease risk for aspiration and reflux aspiration. Train the patient in lifestyle strategies for management of GERD. Train the patient in oropharyngeal exercises to improve mild deficits in pharyngeal motilty and airway closure (Jessica, Effortful, CTAR, Eleazar). Recommended Referrals: GI Consult (Continue to follow w/ OP GI for management of esophageal dysphagia) and ENT Consult (Pt reported not yet scheduling ENT consult. RE[employer]ERY [employer]PERATOR [employer] reinforced recommendation for ENT consult due to recent changes in vocal quality.) Education Completed: 1. Described result of evaluation., 2. Pt understands evaluation & agrees with goals and treatment plan. and 7. Pt requires further education on strategies & risks. Status Active ST Patient: Active Contact Information [facility] Speech Therapy:: Karina Michelle M.A. CCC-REFINERY OPERATOR [employer] Speech-Language Pathologist [facility] [address] [place] [address] [email or web address] [phone]
== END | disposition home or self-care (01) ==
PROVIDERS: PCP Family Medicine; Referring Provider Nurse Practitioner Acute Care; Visit Provider Nurse Practitioner Acute Care
DX: R49.0 Dysphonia (principal)
CPT/HCPCS: 74230; 92611

== ENCOUNTER 2025-08-23 15:44 | Outpatient (RCR) | payer MEDICARE, SELFPAY ==
--- NOTE | 2025-08-23 15:57 | ST ---
[facility] Speech Pathology [address] [place] [address] Modified Barium Swallow Study MR#: [id number] Acct: [id number] Name: BENITO HILL Rep #: [id number] : 1945 79 From: Karina Michelle M.A., [facility]-METAL FABRICATION SUPERVISOR Modified Barium Swallow Patient Information Study Date: 08/06/25 Study Time: 09:20 Direct Billable Minutes: 103 Total Minutes procedure & reportin Diagnosis: Heartburn R12, Hoarseness of voice R49.0 Referring Physician: Yoko Blas Reason for Referral: The patient follow w/ [facility] for management of periumbilical abdominal discomfort and diarrhea. Per OV note on 07/22/2025, "UGI/SBFT revealed reflux to the upper esophagus with aspiration. He does endorse choking with solids and liquids 2-3x a week. No history of aspiration pneumonia. He also c/o hoarseness and denies any prior ENT eval." DONN Castro ordered MBSS and ENT referral for further work up. Patient provided additional hx re: concerns for dysphagia. He reports swallowing difficulty characterized by pills and foods becoming hung up in his throat and esophagus. He denies difficulty swallowing liquids typically despite reflux aspiration on recent esophagram. He denies hx of choking, regurgitation of food/drink/pills, or odynophagia. He avoids certain foods due to chewing difficulty, including hard meats and vegetables. He consumes fork-cut foods and sometimes chopped foods. Swallowing difficulty occurs ~1-2X/week and has been ongoing for a few years. Of note, last night he had a bad night w/ reflux and vomiting. He also reports diarrhea has returned. Medical History: Medical History COPD (chronic obstructive pulmonary disease) Loss of hearing Cancer Anxiety Alcohol use Low iron Back pain History of IBS Former smoker History of echocardiogram History of stress test Essential tremor Chronic a-fib Essential hypertension Wears glasses Arthritis Thoracic aortic aneurysm Syncope MVP (mitral valve prolapse) Shortness of breath on exertion Cardiology follow-up encounter Pacemaker ICD (implantable cardioverter-defibrillator) in place Long-term use of high-risk medication Near syncope SVT (supraventricular tachycardia) Nonrheumatic mitral (valve) prolapse Premature ventricular contraction Colitis Depression Thoracic aortic aneurysm without rupture Cardiomyopathy Ventricular tachycardia Hyperlipidemia Hypertension Surgical History Hx of colonoscopy History of total left knee replacement History of bilateral cataract extraction Hx of atrioventricular node ablation History of partial nephrectomy (07/02/18) Presence of cardiac defibrillator History of tonsillectomy Current Diet Ordered: Easy to Chew textures / Thin liquids Dentition: Natural Teeth (Lower dentition) and Missing Teeth (No upper dentition) Mental Status: WNL Respiratory Status: Oxygenating on Room Air Penetration-Aspiration Scale Penetration-Aspiration Scale: OBJECTIVE ASSESSMENT OF SWALLOW FUNCTION (QUANTITATIVE – PER TRIAL): PENETRATION / ASPIRATION SCALE (XAVIER): 1 = does not enter airway 2 = enters airway/above vocal folds/ejected 3 = enters airway/above vocal folds/not ejected 4 = enters airway/contacts vocal folds/ejected 5 = enters airway/contacts vocal folds/not ejected 6 = enters airway/below vocal folds/ejected 7 = enters airway/below vocal folds/not ejected despite effort 8 = enters airway/below vocal folds/no effort VIDEOFLOROSCOPIC SCALE SCORE (XAVIER): Grade I = aspiration of material that has penetrated into the laryngeal vestibule, intact cough reflex Grade II = aspiration < 10 % of the bolus, intact cough reflex Grade III = aspiration of < 10 % of the bolus, reduced cough reflex or aspiration of > 10 % of the bolus, intact cough reflex Grade IV = aspiration of > 10 % of the bolus, reduced cough reflex Penetration-Aspiration Scale Score Thin Liquid via teaspoon: Result: 1= does not enter airway Thin Liquid via teaspoon Trial 2: Result: 1= does not enter airway Thin Liquid via large single sip: cup: Result: 2= enter airway/above vocal folds/ejected Thin Liquid via sequential sips: cup: Result: 2= enter airway/above vocal folds/ejected Comment: Esophageal screen - Retention in the middle and lower esophagus. Pudding via teaspoon: Result: 1= does not enter airway Comment: Esophageal screen - Complete clearance. Trace post prandial laryngeal penetration of residues of previous trials. 1/2 Cookie: Result: 1= does not enter airway Comment: Esophageal screen - Retention in the middle and lower esophagus. Thin Liquid via single sip: straw: Result: 2= enter airway/above vocal folds/ejected Comment: Esophageal screen - Slowed, but eventual clearance of cookie and barium liquid residues through the UES. Barium Tablet w/ Sequential Sips of Thin Liquid via straw: Result: 3= enters airways/above vocal folds/not ejected Comment: Esophageal screen - Barium tablet appeared to clear through the LES (difficult to fully confirm w/ barium liquids) w/ retention and retrograde flow of barium liquid to the upper esophagus. Fluoroscopy turned on again ~40 seconds later to check esophageal clearance and the barium liquid was just fully emptying through the LES. Barium Tablet w/ Barium Pudding: Result: 1= does not enter airway Comment: Esophageal screen - Retention of barium pudding in the middle and lower esophagus. Retention of barium tablet in the middle esophagus. Single liquid wash of water fully cleared the pudding and tablet through the LES. Oral Phase Labial Seal: Interlabial escape, no progression to anterior lip Tongue Control During Bolus Hold: Posterior escape of less than half of bolus (sequential thin) Bolus Preparation/Mastication: Slow prolonged chewing/mashing with complete recollection Bolus Transport/Lingual Motion: Slowed tongue motion Oral Residue: Residue collection on oral structures Pharyngeal Phase Initiation of Pharyngeal Swallow: Bolus head in pyriforms (sequential thin) Soft Palate Elevation: Trace column of contrast/air between soft palate and pharyngeal wall Laryngeal Elevation: Partial superior movement thyroid cart/partial apprx aryt-epig petiole Anterior Hyoid Excursion: Partial anterior movement Epiglottic Movement: Partial inversion Laryngeal Vestibule Closure at Height of Swallow: Incomplete; narrow column of air/contrast in laryngeal vestibule Pharyngeal Stripping Wave: Present - diminished Pharyngoesophageal Segment Opening: Parital distension and partial duration; parital obstruction of flow (trace retention of barium in the UES) Tongue Base Retraction: Wide column of contrast between tongue base & post. pharyngeal wall (barium tablet) Pharyngeal Residue: Majority of contrast within or on pharyngeal structures (Barium tablet w/ barium liquid on the first swallow, fully cleared w/ second swallow of barium liquid) Esophageal Phase Esophageal Clearance: Esophageal retention w/ retrograde flow below pharyngoesophageal seg. Diagnosis/Impression Diagnosis: Esophageal dysphagia R13.14; Mild oropharyngeal dysphagia R13.12 MBS Impressions: The oral phase is marked by... -Decreased bolus control only noted w/ sequential sips of thin liquids w/ premature posterior loss of liquid to the pharynx. -Slowed tongue motion for A-P transport. -Slowed, but complete mastication of cookie. -Mild oral residues w/ independent use of a second swallow as needed to mostly clear the oral cavity. The pharyngeal phase is marked by... -Decreased pharyngeal motility most notable w/ barium tablet d/t decreased TB retraction and pharyngeal stripping wave. A second swallow and liquid wash fully cleared the tablet through the UES. Otherwise, mild pharyngeal residues of cookie and liquids were observed during the assessment. -Mildly decreased airway closure due to decreased anterior hyoid excursion, laryngeal elevation, and partial epiglottic inversion. -Laryngeal penetration w/o complete ejection w/ sequential sips of liquids. Post prandial laryngeal penetration of barium residues 1X. No aspiration observed. Pt is at increased risk for aspiration during the swallow w/ quick rate of intake of liquids. The esophageal phase is marked by... -Sequential sips of thin liquids - Retention in the middle and lower esophagus. -1/2 Cookie - Retention in the middle and lower esophagus, which slowly cleared through the LES w/ use of liquid wash. -Barium tablet w/ barium liquid - Barium tablet appeared to clear through the LES (difficult to fully confirm w/ barium liquids) w/ retention and retrograde flow of barium liquid to the upper esophagus. Fluoroscopy turned on again ~40 seconds later to check esophageal clearance and the barium liquid was just fully emptying through the LES. -Barium tablet w/ barium pudding - Retention of barium pudding in the middle and lower esophagus. Retention of barium tablet in the middle esophagus. Single liquid wash of water fully cleared the pudding and tablet through the LES. High risk for reflux aspiration. Recommendations Diet: Easy to Chew Textures and Thin Liquids Comment: Pills whole in puree (applesauce/pudding/yogurt) w/ single liquid wash after each pill. If sensation of retention or reflux despite use of liquid washes, stop meal and resume at a later time. Compensatory Strategies: Small Bites, Small Sips (Sips one at a time), Slow Rate, Alternate bites/solids and sips/liquids (Take a sip after every 1-2 bites) and Sitting upright (During and 60min after po intake) Recommend Repeat Modified Barium Swallow: TBD Need for Skilled Speech Therapy Services: Yes Comment: Train the patient in strategies to decrease risk for aspiration and reflux aspiration. Train the patient in lifestyle strategies for management of GERD. Train the patient in oropharyngeal exercises to improve mild deficits in pharyngeal motilty and airway closure (Jessica, Effortful, CTAR, Eleazar). Recommended Referrals: GI Consult (Continue to follow w/ OP GI for management of esophageal dysphagia) and ENT Consult (Pt reported not yet scheduling ENT consult. METAL FABRICATION SUPERVISOR reinforced recommendation for ENT consult due to recent changes in vocal quality.) Education Completed: 1. Described result of evaluation., 2. Pt understands evaluation & agrees with goals and treatment plan. and 7. Pt requires further education on strategies & risks. Status Active ST Patient: Active Contact Information [facility] Speech Therapy:: Karina Michelle M.A. [facility]-METAL FABRICATION SUPERVISOR Speech-Language Pathologist [address] [address] [email or web address] [phone] 08/06/25 [id number] <Electronically signed by Karina Michelle M.A., CCC-METAL FABRICATION SUPERVISOR>
--- NOTE | 2025-08-23 16:56 | HP.SP.EVAL ---
Visit History Visit Info Date of Eval: 08/23/25 Today is Visit #: 1 Application Performance Engineer: JOSÉ MIGUEL History Attending Doctor: SHEKHAR Referring Doctor: SHEKHAR Reason for Referral: HOARSE. RX HERE Medical Diagnosis: Esophageal dysphagia R13.14; Mild oropharyngeal dysphagia R13.12 Date of Onset of Diagnosis: 08/06/25 Previous speech therapy: No Other Relevant Medical History/Diagnoses/Surgery: COPD (chronic obstructive pulmonary disease) Loss of hearing Cancer Anxiety Alcohol use Low iron Back pain History of IBS Former smoker Essential tremor Chronic a-fib Essential hypertension Wears glasses Arthritis Thoracic aortic aneurysm Syncope MVP (mitral valve prolapse) Shortness of breath on exertion Pacemaker ICD (implantable cardioverter-defibrillator) in place Long-term use of high-risk medication Near syncope SVT (supraventricular tachycardia) Nonrheumatic mitral (valve) prolapse Premature ventricular contraction Colitis Depression Thoracic aortic aneurysm without rupture Cardiomyopathy Ventricular tachycardia Hyperlipidemia Hypertension Medications related to this diagnosis: pantoprazole BID Smoking Status: Former smoker Diagnosis Diagnosis: Esophageal dysphagia R13.14; Mild oropharyngeal dysphagia R13.12 Pain Is pain an issue with your current prescribed condition?: No Personal Preferred language: Tunisian Patient Allergies Allergies Allergies: Allergies No Known Allergies Allergy (Verified 08/05/25 11:36) Subjective Dysphagia Current Diet Solids Current Diet: Soft Current Diet Liquids Current Liquids: Thin Objective Dysphagia Administered by Administered by: Self Thin Liquids Administred via: Straw Oral Transit: WNL Bolus clearance: fully cleared Gagging: No Cough: none observed/unable to assess Pharyngeal phase: elevation incomplete Patient Report: No difficulties. Swallowing Impairment Contributing Factors to Swallowing Impairment: Mastication Inefficiency, Delayed Swallow Initiation and Reduced Laryngeal Excursion Impact Impact on Safety & Functioning: Risk for Aspiration Recommendations Swallowing Treatment: Yes Diet Texture Recommendations Solids: Easy to Chew (Level 7) Liquids: Thin (Level 0) Sharma free water Protocol: No Safety Saftey Precautions/Swallowing Recommendations (Check all that Apply): Upright Position at Least 30 Minutes After Meals, Small Sips & Bites when Eating and Alternate Liquids & Solids Results Swallowing Within Normal Limits: No Swallowing Diagnosis: Oropharyngeal Phase Dysphagia (R13.12) Severity: Mild Objective Oral Motor Oral Status Dentition: Missing Teeth Additional: Natural Teeth (Lower dentition) and Missing Teeth (No upper dentition) Labial Impairment: WNL Pucker: WNL Retraction: WNL Alternating Pucker/Retraction: WNL Involuntary Movement noted: No Lingual Impairment: WNL Protrusion: WNL Retraction: WNL Lateralization: WNL Involuntary Movement: No Jaw Impairment: WNL Involuntary Movement: No Respiratory Status Respiratory Status: Room Air Modified Barium Results Hx If Applicable Enter into a NOTE MBS Results (from prior exam): 08/23/25 15:57 Speech Therapy by Hong Bowman [facility] Speech Pathology [address] [place] [address] Modified Barium Swallow Study MR#: [id number] Acct: [id number] Name: BENITO HILL Rep #: [id number] : 1945 79 From: Karina Michelle M.A., [facility]-[employer] SAL[employer]ERSON Modified Barium Swallow Patient Information Study Date: 08/06/25 Study Time: 09:20 Direct Billable Minutes: 103 Total Minutes procedure & reportin Diagnosis: Heartburn R12, Hoarseness of voice R49.0 Referring Physician: Yoko Blas Reason for Referral: The patient follow w/ [facility] for management of periumbilical abdominal discomfort and diarrhea. Per OV note on 07/22/2025, "UGI/SBFT revealed reflux to the upper esophagus with aspiration. He does endorse choking with solids and liquids 2-3x a week. No history of aspiration pneumonia. He also c/o hoarseness and denies any prior ENT eval." DONN Castro ordered MBSS and ENT referral for further work up. Patient provided additional hx re: concerns for dysphagia. He reports swallowing difficulty characterized by pills and foods becoming hung up in his throat and esophagus. He denies difficulty swallowing liquids typically despite reflux aspiration on recent esophagram. He denies hx of choking, regurgitation of food/drink/pills, or odynophagia. He avoids certain foods due to chewing difficulty, including hard meats and vegetables. He consumes fork-cut foods and sometimes chopped foods. Swallowing difficulty occurs ~1-2X/week and has been ongoing for a few years. Of note, last night he had a bad night w/ reflux and vomiting. He also reports diarrhea has returned. Medical History: Medical History COPD (chronic obstructive pulmonary disease) Loss of hearing Cancer Anxiety Alcohol use Low iron Back pain History of IBS Former smoker History of echocardiogram History of stress test Essential tremor Chronic a-fib Essential hypertension Wears glasses Arthritis Thoracic aortic aneurysm Syncope MVP (mitral valve prolapse) Shortness of breath on exertion Cardiology follow-up encounter Pacemaker ICD (implantable cardioverter-defibrillator) in place Long-term use of high-risk medication Near syncope SVT (supraventricular tachycardia) Nonrheumatic mitral (valve) prolapse Premature ventricular contraction Colitis Depression Thoracic aortic aneurysm without rupture Cardiomyopathy Ventricular tachycardia Hyperlipidemia Hypertension Surgical History Hx of colonoscopy History of total left knee replacement History of bilateral cataract extraction Hx of atrioventricular node ablation History of partial nephrectomy (07/02/18) Presence of cardiac defibrillator History of tonsillectomy Current Diet Ordered: Easy to Chew textures / Thin liquids Dentition: Natural Teeth (Lower dentition) and Missing Teeth (No upper dentition) Mental Status: WNL Respiratory Status: Oxygenating on Room Air Penetration-Aspiration Scale Penetration-Aspiration Scale: OBJECTIVE ASSESSMENT OF SWALLOW FUNCTION (QUANTITATIVE – PER TRIAL): PENETRATION / ASPIRATION SCALE (XAVIER): 1 = does not enter airway 2 = enters airway/above vocal folds/ejected 3 = enters airway/above vocal folds/not ejected 4 = enters airway/contacts vocal folds/ejected 5 = enters airway/contacts vocal folds/not ejected 6 = enters airway/below vocal folds/ejected 7 = enters airway/below vocal folds/not ejected despite effort 8 = enters airway/below vocal folds/no effort VIDEOFLOROSCOPIC SCALE SCORE (XAVIER): Grade I = aspiration of material that has penetrated into the laryngeal vestibule, intact cough reflex Grade II = aspiration < 10 % of the bolus, intact cough reflex Grade III = aspiration of < 10 % of the bolus, reduced cough reflex or aspiration of > 10 % of the bolus, intact cough reflex Grade IV = aspiration of > 10 % of the bolus, reduced cough reflex Penetration-Aspiration Scale Score Thin Liquid via teaspoon: Result: 1= does not enter airway Thin Liquid via teaspoon Trial 2: Result: 1= does not enter airway Thin Liquid via large single sip: cup: Result: 2= enter airway/above vocal folds/ejected Thin Liquid via sequential sips: cup: Result: 2= enter airway/above vocal folds/ejected Comment: Esophageal screen - Retention in the middle and lower esophagus. Pudding via teaspoon: Result: 1= does not enter airway Comment: Esophageal screen - Complete clearance. Trace post prandial laryngeal penetration of residues of previous trials. 1/2 Cookie: Result: 1= does not enter airway Comment: Esophageal screen - Retention in the middle and lower esophagus. Thin Liquid via single sip: straw: Result: 2= enter airway/above vocal folds/ejected Comment: Esophageal screen - Slowed, but eventual clearance of cookie and barium liquid residues through the UES. Barium Tablet w/ Sequential Sips of Thin Liquid via straw: Result: 3= enters airways/above vocal folds/not ejected Comment: Esophageal screen - Barium tablet appeared to clear through the LES (difficult to fully confirm w/ barium liquids) w/ retention and retrograde flow of barium liquid to the upper esophagus. Fluoroscopy turned on again ~40 seconds later to check esophageal clearance and the barium liquid was just fully emptying through the LES. Barium Tablet w/ Barium Pudding: Result: 1= does not enter airway Comment: Esophageal screen - Retention of barium pudding in the middle and lower esophagus. Retention of barium tablet in the middle esophagus. Single liquid wash of water fully cleared the pudding and tablet through the LES. Oral Phase Labial Seal: Interlabial escape, no progression to anterior lip Tongue Control During Bolus Hold: Posterior escape of less than half of bolus (sequential thin) Bolus Preparation/Mastication: Slow prolonged chewing/mashing with complete recollection Bolus Transport/Lingual Motion: Slowed tongue motion Oral Residue: Residue collection on oral structures Pharyngeal Phase Initiation of Pharyngeal Swallow: Bolus head in pyriforms (sequential thin) Soft Palate Elevation: Trace column of contrast/air between soft palate and pharyngeal wall Laryngeal Elevation: Partial superior movement thyroid cart/partial apprx aryt-epig petiole Anterior Hyoid Excursion: Partial anterior movement Epiglottic Movement: Partial inversion Laryngeal Vestibule Closure at Height of Swallow: Incomplete; narrow column of air/contrast in laryngeal vestibule Pharyngeal Stripping Wave: Present - diminished Pharyngoesophageal Segment Opening: Parital distension and partial duration; parital obstruction of flow (trace retention of barium in the UES) Tongue Base Retraction: Wide column of contrast between tongue base & post. pharyngeal wall (barium tablet) Pharyngeal Residue: Majority of contrast within or on pharyngeal structures (Barium tablet w/ barium liquid on the first swallow, fully cleared w/ second swallow of barium liquid) Esophageal Phase Esophageal Clearance: Esophageal retention w/ retrograde flow below pharyngoesophageal seg. Diagnosis/Impression Diagnosis: Esophageal dysphagia R13.14; Mild oropharyngeal dysphagia R13.12 MBS Impressions: The oral phase is marked by... -Decreased bolus control only noted w/ sequential sips of thin liquids w/ premature posterior loss of liquid to the pharynx. -Slowed tongue motion for A-P transport. -Slowed, but complete mastication of cookie. -Mild oral residues w/ independent use of a second swallow as needed to mostly clear the oral cavity. The pharyngeal phase is marked by... -Decreased pharyngeal motility most notable w/ barium tablet d/t decreased TB retraction and pharyngeal stripping wave. A second swallow and liquid wash fully cleared the tablet through the UES. Otherwise, mild pharyngeal residues of cookie and liquids were observed during the assessment. -Mildly decreased airway closure due to decreased anterior hyoid excursion, laryngeal elevation, and partial epiglottic inversion. -Laryngeal penetration w/o complete ejection w/ sequential sips of liquids. Post prandial laryngeal penetration of barium residues 1X. No aspiration observed. Pt is at increased risk for aspiration during the swallow w/ quick rate of intake of liquids. The esophageal phase is marked by... -Sequential sips of thin liquids - Retention in the middle and lower esophagus. -1/2 Cookie - Retention in the middle and lower esophagus, which slowly cleared through the LES w/ use of liquid wash. -Barium tablet w/ barium liquid - Barium tablet appeared to clear through the LES (difficult to fully confirm w/ barium liquids) w/ retention and retrograde flow of barium liquid to the upper esophagus. Fluoroscopy turned on again ~40 seconds later to check esophageal clearance and the barium liquid was just fully emptying through the LES. -Barium tablet w/ barium pudding - Retention of barium pudding in the middle and lower esophagus. Retention of barium tablet in the middle esophagus. Single liquid wash of water fully cleared the pudding and tablet through the LES. High risk for reflux aspiration. Recommendations Diet: Easy to Chew Textures and Thin Liquids Comment: Pills whole in puree (applesauce/pudding/yogurt) w/ single liquid wash after each pill. If sensation of retention or reflux despite use of liquid washes, stop meal and resume at a later time. Compensatory Strategies: Small Bites, Small Sips (Sips one at a time), Slow Rate, Alternate bites/solids and sips/liquids (Take a sip after every 1-2 bites) and Sitting upright (During and 60min after po intake) Recommend Repeat Modified Barium Swallow: TBD Need for Skilled Speech Therapy Services: Yes Comment: Train the patient in strategies to decrease risk for aspiration and reflux aspiration. Train the patient in lifestyle strategies for management of GERD. Train the patient in oropharyngeal exercises to improve mild deficits in pharyngeal motilty and airway closure (Jessica, Effortful, CTAR, Eleazar). Recommended Referrals: GI Consult (Continue to follow w/ OP GI for management of esophageal dysphagia) and ENT Consult (Pt reported not yet scheduling ENT consult. [employer] SALESPERSON reinforced recommendation for ENT consult due to recent changes in vocal quality.) Education Completed: 1. Described result of evaluation., 2. Pt understands evaluation & agrees with goals and treatment plan. and 7. Pt requires further education on strategies & risks. Status Active ST Patient: Active Contact Information [facility] Speech Therapy:: Karina Michelle M.A. [facility]-[employer] SAL[employer]ERSON Speech-Language Pathologist [address] [address] [email or web address] [phone] 08/06/25 1143 <Electronically signed by Karina Michelle M.A., [facility]-[employer] SALESPERSON> Electronically signed by Hong Bowman M.A., [facility]-[employer] SALESPERSON on 08/23/25 15:59 Initialized on 08/23/25 15:57 - END OF NOTE Swallowing Performance Scale Swallowing Performance Scale Swallowing Performance Scale Result: 3 Mild Reference: Neuro-QoL instrument Radiation Oncology Patient Plan Plan Plan: Patient requested to not attend weekly therapy for dysphagia. Therapist is in agreement as he demonstrated ability to understand diet, strategies as well as exercises. He will independently complete exercises and contact therapist with questions/make an appointment. Recommend a follow up session to determine progress in 6-8 weeks. Recommendations Treatment Warranted: Yes Treatment Warranted: Dysphagia Progress Prognosis: Good Frequency Frequency: 1x Duration: 6-8 weeks Visits in this POC: 1 Patient/Family Goal Patient/Family Goal: Patient's goal is to complete exercises at home. Goals that are Established Determination:: Goals will be added/modified as deemed necessary and appropriate. Therapy will be discontinued when results of re-evaluation indicate therapy is no longer needed or lack of progress has been documented. Goal #1-5 Goal #1: Patient will report compliance for 6 out of 7 days per week with daily exercises for all 6-8 weeks at least twice a day. Goal #2: Patient will report no s/s of dysphagia at the time of re-assessment in 6-8 weeks. Education Patient has Indicated that the Following Identified Educational Needs: None The Patient has indicated that they have no educational or learning abilities that may effect their care.: Yes Patient Instruction Patient Education: Diagnosis, Treatment Plan, Goals, Diet Level and Home Exercise Program Person Taught: Patient Teaching Method: Discussion, Demonstration and Handout Response to teaching: Verbalize Understanding
--- NOTE | 2025-10-18 10:22 | HP.SP.DC_ITS ---
ST Discharge Summary Discharged: Discharge: Tone Whittington is discharged from [facility] as of 10/18/25 due to canceling re-evaluation without rescheduling. He was evaluated on 08/23/25 for mild oropharyngeal dysphagia. Patient requested not to attend weekly therapy for dysphagia. Therapist agreed as he demonstrated ability to understand diet, strategies as well as exercises. Recommend a follow up session to determine progress in 6-8 weeks which was scheduled on 10/11/25 but was cancelled. He declined to reschedule when he cancelled it. Please see initial evaluation for complete details. Thank you for allowing me to participate in the care of this patient.
== END 2025-08-23 19:00 | disposition home or self-care (01) ==
LOC: SP 15:44
PROVIDERS: PCP Family Medicine; Referring Provider Nurse Practitioner Acute Care; Visit Provider Nurse Practitioner Acute Care
DX: R49.0 Dysphonia (principal); R13.10 Dysphagia, unspecified; K21.9 Gastro-esophageal reflux disease without esophagitis; Z91.89 Other specified personal risk factors, not elsewhere classified
CPT/HCPCS: 92610

== ENCOUNTER → 2025-09-02 | Outpatient (CLI) | payer MEDICARE, SELFPAY ==
--- NOTE | 2025-09-02 12:54 | ECHOD_ITS ---
Reason For Study Reason For Study: Dyspnea/SOB Procedure This was a 2D Doppler, Color Flow transthoracic echocardiogram. Exam performed in department. Left Ventricle Normal LV size. The left ventricular ejection fraction is 40 %. Stage 1 diastolic dysfunction. There is mild to moderate global hypokinesis of the left ventricle. Right Ventricle Normal RV size. ICD or pacer leads identified within the right ventricle. Normal systolic function. Mitral Valve Normal mitral valve. Tricuspid Valve Normal tricuspid valve. Mild (1+) tricuspid valve insufficiency. Great Vessels Moderately dilated aortic root. The pulmonary artery is normal size. Inferior vena cava collapse with respiration. Pericardium/Pleural No pericardial effusion. MMode/2D Measurements & Calculations LVIDd: 5.5 cm IVSd: 0.90 cm Ao root diam: 4.7 cm LVIDs: 4.5 cm LVPWd: 0.81 cm RVDd: 4.4 cm FS: 18.7 % LAV(MOD-bp): 20.1 ml SV(MOD-sp4): 41.6 ml LVAd ap4: 32.9 cm2 LAV(MOD-bp) Indexed: 10.2 ml/m2 LVLd ap4: 8.2 cm SI(MOD-sp4): 21.2 ml/m2 LAV(MOD-sp2): 28.3 ml EDV(MOD-sp4): 111.3 ml LAV(MOD-sp4): 13.6 ml EDV(sp4-el): 111.5 ml LVAs ap4: 24.7 cm2 LVLs ap4: 7.7 cm ESV(MOD-sp4): 69.8 ml ESV(sp4-el): 67.2 ml EF(MOD-sp4): 37.3 % EF(sp4-el): 39.7 % SV(sp4-el): 44.3 ml LA A4 area: 8.2 cm2 LA dimension(2D): 2.5 cm TAPSE: 1.8 cm RA A4 area: 13.7 cm2 Time Measurements MV dec time: 0.27 sec Doppler Measurements & Calculations MV E max jay: 29.8 cm/sec Lat Peak E' Jay: 8.2 cm/sec Med Peak E' Jay: 6.6 cm/sec MV A max jay: 62.2 cm/sec E/E' lat: 3.6 E/E' med: 4.5 MV E/A: 0.48 MV V2 max: 60.6 cm/sec MV P1/2t max jay: 23.3 cm/sec Ao V2 max: 64.0 cm/sec MV max P.5 mmHg MV P1/2t: 80.0 msec Ao max P.6 mmHg MV V2 mean: 29.0 cm/sec MV dec slope: 85.3 cm/sec2 Ao V2 mean: 49.3 cm/sec MV mean P.44 mmHg Ao mean P.1 mmHg MV V2 VTI: 20.1 cm MVA(P1/2t): 2.8 cm2 Ao V2 VTI: 12.9 cm AV (velocity ratio): 0.97 LV V1 max: 59.1 cm/sec PA V2 max: 40.6 cm/sec TR max jay: 157.4 cm/sec LV V1 max P.4 mmHg TR max P.0 mmHg LV V1 mean P.82 mmHg LV V1 mean: 42.8 cm/sec LV V1 VTI: 12.5 cm ECHO/Echo Complete Interpretation Summary The left ventricular ejection fraction is 40 %. Normal LV size. There is mild to moderate global hypokinesis of the left ventricle. Moderately dilated aortic root. Stage 1 diastolic dysfunction. Mild (1+) tricuspid valve insufficiency. Ordering Physician: Rashmi Fatima Referring Physician: Rashmi Fatima Performed By: Pancho Diaz RCS
== END | disposition home or self-care (01) ==
LOC: CVS 12:52
PROVIDERS: PCP Family Medicine; Referring Provider Nurse Practitioner Gerontology; Visit Provider Nurse Practitioner Gerontology
DX: R06.02 Shortness of breath (principal)
CPT/HCPCS: 93306

== ENCOUNTER 2025-09-15 08:27 | Day surgery (SDC) | payer MEDICARE, SELFPAY ==
[2025-09-14 11:15] VITALS: BMI 19.2
== END 2025-09-15 12:10 | disposition home or self-care (01) ==
PROVIDERS: PCP Family Medicine; Referring Provider Surgery Trauma Surgery; Visit Provider Surgery Trauma Surgery
DX: I83.892 Varicose veins of left lower extremity with other complications (principal); I83.025 Varicose veins of left lower extremity with ulcer other part of foot; L97.529 Non-pressure chronic ulcer of other part of left foot with unspecified severity; J44.9 Chronic obstructive pulmonary disease, unspecified; I48.20 Chronic atrial fibrillation, unspecified; I87.2 Venous insufficiency (chronic) (peripheral); I10 Essential (primary) hypertension; E78.5 Hyperlipidemia, unspecified; Z79.01 Long term (current) use of anticoagulants; Z79.84 Long term (current) use of oral hypoglycemic drugs; Z79.899 Other long term (current) drug therapy; Z87.891 Personal history of nicotine dependence; Z95.810 Presence of automatic (implantable) cardiac defibrillator
CPT/HCPCS: 36482; 99152; 99153; C1894

== ENCOUNTER 2025-09-16 07:56 | Day surgery (SDC) | payer MEDICARE, SELFPAY ==
--- NOTE | 2025-09-13 13:51 | PAT.ANESEVAL ---
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 When Was Last Pacemaker Check 03/26/18 06/26/18 10:06 QUESTION #4 FULL TEXT: You/Your Family Experience fever (hyperthermia) with Anesthesia Last Oral Intake Last Oral intake: Last Oral Intake NPO since Meds taken in AM with sips of water? Meds patient instructed to take am of surgery PONV PONV - laboratory animal caretaker: PONV - laboratory animal caretaker Female No 09/13/25 13:35 HX of Motion Sickness No 09/13/25 13:35 HX of N/V After Surgery No 09/13/25 13:35 Non-Smoker Yes 09/13/25 13:35 Duration of Surgery greater No 09/13/25 13:35 than 60 minutes Number of Risk Factors 1 09/13/25 13:35 PONV Score Low Risk 09/13/25 13:35 Height & Weight Height & Weight: Anesthesia: Height & Weight Height 6 ft 3 in 08/30/25 13:53 Respiratory Assessment Respiratory Assessment - laboratory animal caretaker: Respiratory Tract Infection Hx - laboratory animal caretaker Hx Respiratory Tract Infection No 09/13/25 13:35 STOP Sleep Apnea STOP Sleep Apnea - laboratory animal caretaker: STOP Sleep Apnea - laboratory animal caretaker Hx Hypertension Yes: CONTROLLED WITH MED 09/13/25 13:35 Hx Sleep Apnea No 09/13/25 13:35 CPAP BIPAP Do you snore loudly (louder No 09/13/25 13:35 than talking or can be heard Do you often feel tired/ Yes 09/13/25 13:35 fatigued/ sleepy during daytime? Has anyone observed you stop No 09/13/25 13:35 breathing during sleep? STOP Results Positive 09/13/25 13:35 QUESTION #5 FULL TEXT : Do you snore loudly (louder than talking or can be heard through closed doors)? 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 Specify any problems Hx of Preganancy in last 3 N/A 09/13/25 13:35 Months Nurse Filling Out Transfusion DSCHRIBER 09/13/25 13:35 & Questions: Date: 09/13/25 09/13/25 13:35 Time: 13:37 09/13/25 13:35 Patient unable to answer at this time (ie. confused, unrespo /Reproduction History /Reproductive History - laboratory animal caretaker: /Reproductive Hx- laboratory animal caretaker Hx Now No 09/13/25 13:35 Gestational Age (in weeks): EDC: Hx Hx Para Hx Section SAB No 09/13/25 13:35 PFSH Medical History (Updated 09/13/25 @ 13:47 by Betty Patrick) Partial edentulism, class III Sore on toe Migraine headache Gastric reflux Leg cramps COPD (chronic obstructive pulmonary disease) Loss of hearing Cancer Anxiety Alcohol use Low iron Back pain History of IBS Former smoker History of echocardiogram History of stress test Essential tremor Chronic a-fib Essential hypertension Wears glasses Arthritis Thoracic aortic aneurysm Syncope MVP (mitral valve prolapse) Shortness of breath on exertion Cardiology follow-up encounter Pacemaker ICD (implantable cardioverter-defibrillator) in place Long-term use of high-risk medication Near syncope SVT (supraventricular tachycardia) Nonrheumatic mitral (valve) prolapse Premature ventricular contraction Colitis Depression Thoracic aortic aneurysm without rupture Cardiomyopathy Ventricular tachycardia Hyperlipidemia Hypertension Home Medications ?Medication ?Instructions ?Recorded ?Last Taken ?Type vit C 250 mg-vit E 200 unit-zinc 1 cap PO BID 07/30/23 Unknown History ox 12.5 ww-voaswp-xzcxrv-zeax capsule (ICaps AREDS2) mecobalamin (vitamin B12) 1,000 1,000 mcg PO DAILY 05/01/24 02/09/25 History mcg chewable tablet apixaban 5 mg tablet (Eliquis) 5 mg PO BID #180 tabs 07/30/24 09/09/25 Rx empagliflozin 25 mg tablet 25 mg PO DAILY 10/13/24 09/12/25 History (Jardiance) metoprolol succinate 25 mg 12.5 mg PO QHS 02/09/25 Unknown History tablet,extended release 24 hr amiodarone 200 mg tablet 100 mg (1/2 x 200 mg) PO DAILY Pt 02/16/25 Unknown Rx awaiting mail in RX, he is OUT of medication #45 tabs loperamide 2 mg capsule (Imodium 2 mg PO .QOD 03/08/25 Unknown History A-D) simvastatin 20 mg tablet 20 mg PO QHS cholesterol #90 tabs 03/24/25 Unknown Rx cholecalciferol (vitamin D3) 1,250 1,250 mcg PO QMONTH 05/03/25 Unknown History mcg (50,000 unit) capsule sacubitril 97 mg-valsartan 103 mg 0.5 tab PO DAILY 05/03/25 Unknown History tablet (Entresto) wheat dextrin 1 gram tablet 1 g PO DAILY 05/03/25 Unknown History (Benefiber (wheat dextrin)) pantoprazole 40 mg tablet,delayed 40 mg PO BID 30 days #60 tabs 08/18/25 Unknown Rx release Allergy/AdvReac Type Severity Reaction Status Date / Time No Known Allergies Allergy Verified 09/13/25 13:28 Family History Father Heart disease Sister Heart disease Brother Heart disease Mother Pancreas (digestive gland) works poorly Surgical History (Updated 09/13/25 @ 13:47 by Betty Patrick) Hx of colonoscopy History of total left knee replacement History of bilateral cataract extraction Hx of atrioventricular node ablation History of partial nephrectomy (07/02/18) Presence of cardiac defibrillator History of tonsillectomy Social History household members: none current occupational status: retired Smoking Status: Former smoker how long ago did patient quit smokin alcohol intake: never substance use type: does not use caffeine: Yes Type: coffee Number of servings: 2 frequency: 1-2 times per week Audit: Pertinent Findings Pertinent Findings EKG Perinent findings: 08/05/2025. AV dual paced rhythm. Biventricular pacemaker detected. 70 bpm. Stress test pertinent findings: 05/27/2024. Normal perfusion stress test. Mildly reduced ejection fraction 46%. Consult pertinent findings: Cardiology 08/05/2025. Ventricular tachycardia. On long-term current use of amiodarone. Has a dual-chamber pacemaker. Atrial fibrillation. Acute. Patient's status post AV di ablation. Continue metoprolol and Eliquis twice daily. Presence of cardiac defibrillator. Continue regular scheduled ICD interrogations. Thoracic aortic aneurysm without rupture. Monitor. Cardiomyopathy chronic. EF 2023 of 35%. Recommendation Anesthesia Recommendation Anesthesia recommendation: OPTIMIZED for anesthesia
[2025-09-16] VITALS (11 sets, daily range): BP systolic 87–121; BP diastolic 62–74; PULSE 70–72; RESP 16–18; TEMP 36.2–36.6; O2SAT 97–99; BMI 19.3
[2025-09-16] MEDS: Lactated Ringers 1,000 ML 15 ML IV (08:31)
--- NOTE | 2025-09-16 08:56 | PCM.PRE.AN2 ---
ASA Classification* ASA Classification ASA Classification: 3 Assessment & Plan Anesthesia* Anesthesia Assessment Anesthesia Assessment: Discussed sedation and/or anesthesia options, risks, benefits, and alternatives with patient/parents/legal guardian/POA. Questions invited. The patient/parents/legal guardian/POA seems to understand and agrees to proceed with anesthesia plan. Reviewed the physical assessment, medical history, allergy history and patient home medications list prior to surgery/procedure/anesthetic and documented any changes. Performed airway and anesthesia risk assessments. Anesthesia Type Anesthesia Type: MAC History Source History Obtained from:: Patient and Chart Anesthesia Focused Assessment* Temperature: 97.3 F Pulse Rate: 70 Blood Pressure: 121/74 Respiratory Rate: 16 Pulse Ox: 99 Oxygen Delivery Method: Room Air Airway Assessment Mouth opens: >3 cm Mallampati Score: II Teeth Condition: Missing (No upper teeth. Missing some lower teeth.) Neck Range of motion (ROM): Limited ROM Labs Anesthesia Preop lab: CBC WBC, (4.4-11.0) 5.4 K/mm3 08/05/25, 12:16 RBC, (4.6-6.2) 4.91 M/mm3 08/05/25, 12:16 Hgb, (13.0-16.5) 14.7 g/dL 08/05/25, 12:16 Hct, (40-54) 45.6 % 08/05/25, 12:16 Plt Count, (150-450) 89 K/mm3 L 08/05/25, 12:16 CHEMISTRY Potassium, (3.3-5.1) 4.6 mmol/L 08/05/25, 12:16 Sodium, (133-145) 140 mmol/L 08/05/25, 12:16 Magnesium, (1.6-2.6) 2.4 mg/dL 04/23/24, 15:22 Phosphorus, (2.5-4.9) 2.4 mg/dL L 07/04/23, 10:01 BUN, (4-19) 18 mg/dL 08/05/25, 12:16 Creatinine, (0.70-1.20) 1.40 mg/dL H 08/05/25, 12:16 Glucose, (70-99) 95 mg/dL 08/05/25, 12:16 TSH, (0.300-4.200) 0.881 uIU/mL 08/05/25, 12:16 COAG PT, (11.7-14.9) 17.2 SECONDS H 02/07/24, 17:40 Pre-Assessment Diagnosis/Proposed Procedure Planned Operative Procedure(s): EGD Anesthesia History 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 When Was Last Pacemaker Check 03/26/18 09/15/25 08:47 QUESTION #4 FULL TEXT: You/Your Family Experience fever (hyperthermia) with Anesthesia Last Oral Intake Last Oral intake: Last Oral Intake NPO since 17:30 09/16/25 08:19 Meds taken in AM with sips of No 09/16/25 08:19 water? 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 operator Female No 09/13/25 13:35 HX of Motion Sickness No 09/13/25 13:35 HX of N/V After Surgery No 09/13/25 13:35 Non-Smoker Yes 09/13/25 13:35 Duration of Surgery greater No 09/13/25 13:35 than 60 minutes Number of Risk Factors 1 09/13/25 13:35 PONV Score Low Risk 09/13/25 13:35 Height & Weight Height & Weight: Anesthesia: Height & Weight Height 6 ft 3 in 09/16/25 08:19 Weight: 70.4 kg 09/16/25 08:19 Body Mass Index (BMI) 19.3 09/16/25 08:19 Respiratory Assessment Respiratory Assessment - stereoplotter operator: Respiratory Tract Infection Hx - stereoplotter operator Hx Respiratory Tract Infection No 09/13/25 13:35 STOP Sleep Apnea STOP Sleep Apnea - stereoplotter operator: STOP Sleep Apnea - stereoplotter operator Hx Hypertension Yes: CONTROLLED WITH MED 09/13/25 13:35 Hx Sleep Apnea No 09/13/25 13:35 CPAP BIPAP Do you snore loudly (louder No 09/13/25 13:35 than talking or can be heard Do you often feel tired/ Yes 09/13/25 13:35 fatigued/ sleepy during daytime? Has anyone observed you stop No 09/13/25 13:35 breathing during sleep? STOP Results Positive 09/13/25 13:35 QUESTION #5 FULL TEXT : Do you snore loudly (louder than talking or can be heard through closed doors)? 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 Specify any problems Hx of Preganancy in last 3 N/A 09/13/25 13:35 Months Nurse Filling Out Transfusion DSCHRIBER 09/13/25 13:35 & Questions: Date: 09/13/25 09/13/25 13:35 Time: 13:37 09/13/25 13:35 Patient unable to answer at this time (ie. confused, unrespo /Reproduction History /Reproductive History - stereoplotter operator: /Reproductive Hx- stereoplotter operator Hx Now No 09/13/25 13:35 Gestational Age (in weeks): EDC: Hx Hx Para Hx Section SAB No 09/13/25 13:35 Active Medications Active Medications: Current Medications Generic Name Dose Route Start Last Admin Trade Name Freq PRN Reason Stop Dose Admin Lactated Ringer's 1,000 mls @ 15 mls/hr 09/16/25 08:15 09/16/25 08:31 IV 15 mls/hr .Q48H BRAULIO Administration PFSH Medical History Partial edentulism, class III Sore on toe Migraine headache Gastric reflux Leg cramps COPD (chronic obstructive pulmonary disease) Loss of hearing Cancer Anxiety Alcohol use Low iron Back pain History of IBS Former smoker History of echocardiogram History of stress test Essential tremor Chronic a-fib Essential hypertension Wears glasses Arthritis Thoracic aortic aneurysm Syncope MVP (mitral valve prolapse) Shortness of breath on exertion Cardiology follow-up encounter Pacemaker ICD (implantable cardioverter-defibrillator) in place Long-term use of high-risk medication Near syncope SVT (supraventricular tachycardia) Nonrheumatic mitral (valve) prolapse Premature ventricular contraction Colitis Depression Thoracic aortic aneurysm without rupture Cardiomyopathy Ventricular tachycardia Hyperlipidemia Hypertension Home Medications ?Medication ?Instructions ?Recorded ?Last Taken ?Type vit C 250 mg-vit E 200 unit-zinc 1 cap PO BID 07/30/23 Unknown History ox 12.5 tp-ablhax-yoozao-zeax capsule (ICaps AREDS2) mecobalamin (vitamin B12) 1,000 1,000 mcg PO DAILY 05/01/24 09/14/25 History mcg chewable tablet empagliflozin 25 mg tablet 25 mg PO DAILY 10/13/24 09/14/25 History (Jardiance) amiodarone 200 mg tablet 100 mg (1/2 x 200 mg) PO DAILY Pt 02/16/25 09/15/25 Rx awaiting mail in RX, he is OUT of medication #45 tabs loperamide 2 mg capsule (Imodium 2 mg PO .QOD 03/08/25 09/14/25 History A-D) simvastatin 20 mg tablet 20 mg PO QHS cholesterol #90 tabs 03/24/25 Unknown Rx cholecalciferol (vitamin D3) 1,250 1,250 mcg PO QMONTH 05/03/25 Unknown History mcg (50,000 unit) capsule sacubitril 97 mg-valsartan 103 mg 0.5 tab PO DAILY 05/03/25 Unknown History tablet (Entresto) wheat dextrin 1 gram tablet 1 g PO DAILY 05/03/25 Unknown History (Benefiber (wheat dextrin)) pantoprazole 40 mg tablet,delayed 40 mg PO BID 30 days #60 tabs 08/18/25 Unknown Rx release apixaban 5 mg tablet (Eliquis) 5 mg PO BID 09/15/25 09/13/25 History metoprolol succinate 25 mg 12.5 mg (1/2 x 25 mg) PO QHS #45 09/16/25 Unknown Rx tablet,extended release 24 hr tabs Allergy/AdvReac Type Severity Reaction Status Date / Time No Known Allergies Allergy Verified 09/16/25 08:41 Family History Father Heart disease Sister Heart disease Brother Heart disease Mother Pancreas (digestive gland) works poorly Surgical History Hx of colonoscopy History of total left knee replacement History of bilateral cataract extraction Hx of atrioventricular node ablation History of partial nephrectomy (07/02/18) Presence of cardiac defibrillator History of tonsillectomy Social History household members: none current occupational status: retired Smoking Status: Former smoker how long ago did patient quit smokin alcohol intake: never substance use type: does not use caffeine: Yes Type: coffee Number of servings: 2 frequency: 1-2 times per week Review of Systems (Anesthesia) ROS Narrative System reviewed and no additional complaints, except as documented.
--- NOTE | 2025-09-16 09:15 | EGD_PTH ---
PATIENT: BENITO HILL LOC: EN U#:[id number] AGE/SX: 80/M ROOM: RE09/16/[address]: Dr. Juan Diego Noriega DO : 1945 BED: DIS: 09/16/2025 SPEC #: [id number] RECD: 09/16/25 12:23 STATUS: GRACE ORIANA #: [id number] TRINA: 09/16/25 09:[address]: Juan Diego Noriega DEPT: SURGICAL PATHOLOGY RECD BY: Fernando Kovacs ENTERED: 09/16/25 13:16 SP TYPE: EGD BIOPSY RUTH DR: Dr. Helen Lainez MD Tissues: A - Esophagus, NOS Procedures: Surgery Specimen Level IV HEADER OPERATION: EGD, biopsy, dilation PRE-OP DIAGNOSIS: Dysphagia, GERD, at high risk for aspiration TISSUE SUBMITTED: A- Distal esophagus biopsy MICROSCOPIC DIAGNOSIS A. Distal esophagus, biopsy: - Columnar mucosa negative for goblet cell metaplasia, negative for dysplasia. - Focal scant benign squamous mucosa. MICROSCOPIC DESCRIPTION Slides are reviewed. GROSS DESCRIPTION A. Received in fixative is one container labeled with the patient's name and designated Distal esophagus biopsy. The specimen consists of two irregular fragments of merida tissue, each measuring 0.3 cm. The specimen is totally submitted in one cassette. [place] 09/16/2025 CPT:67205
--- NOTE | 2025-09-16 09:37 | PCM.HP.STD ---
HPI - General General Date of Admission: 09/16/25 Date of Service: 09/16/25 Chief Complaint: Dysphagia HPI Narrative BENITO HILL, is a 80 M who presents [Chief Complaint: Dysphagia Last OV 07/22/25 with Yoko Blas [facility] for chronic parumbilical abd pain and diarrhea. Imodium resolving his loose stool. Pt Also experiencing difficulty swallowing. MBS ordered, referral to ENT OV 08/31/25 patient continues to have soft stools a few times per day. This has improved as they are no longer watery. He is taking a teaspoon of Benefiber in the morning and Imodium 3 times per day. He does continue to have dull periumbilical abdominal pain at all times. Patient is seeing speech pathology and is completing exercises 3 times per day for his swallowing. He continues to have difficulty swallowing solids and liquids. He feels it is too early to tell if speech therapy has made a difference. He eats small bites and chews his food thoroughly. He notes he has to swallow 2 times for the food to go down. He continues with pantoprazole 40 mg twice a day which has helped with heartburn but not swallowing. [facility] Medical History Partial edentulism, class III Sore on toe Migraine headache Gastric reflux Leg cramps COPD (chronic obstructive pulmonary disease) Loss of hearing Cancer Anxiety Alcohol use Low iron Back pain History of IBS Former smoker History of echocardiogram History of stress test Essential tremor Chronic a-fib Essential hypertension Wears glasses Arthritis Thoracic aortic aneurysm Syncope MVP (mitral valve prolapse) Shortness of breath on exertion Cardiology follow-up encounter Pacemaker ICD (implantable cardioverter-defibrillator) in place Long-term use of high-risk medication Near syncope SVT (supraventricular tachycardia) Nonrheumatic mitral (valve) prolapse Premature ventricular contraction Colitis Depression Thoracic aortic aneurysm without rupture Cardiomyopathy Ventricular tachycardia Hyperlipidemia Hypertension Home Medications ?Medication ?Instructions ?Recorded ?Last Taken ?Type vit C 250 mg-vit E 200 unit-zinc 1 cap PO BID 07/30/23 Unknown History ox 12.5 gd-lrzhhf-mjrchi-zeax capsule (ICaps AREDS2) mecobalamin (vitamin B12) 1,000 1,000 mcg PO DAILY 05/01/24 09/14/25 History mcg chewable tablet empagliflozin 25 mg tablet 25 mg PO DAILY 10/13/24 09/14/25 History (Jardiance) amiodarone 200 mg tablet 100 mg (1/2 x 200 mg) PO DAILY Pt 02/16/25 09/15/25 Rx awaiting mail in RX, he is OUT of medication #45 tabs loperamide 2 mg capsule (Imodium 2 mg PO .QOD 03/08/25 09/14/25 History A-D) simvastatin 20 mg tablet 20 mg PO QHS cholesterol #90 tabs 03/24/25 Unknown Rx cholecalciferol (vitamin D3) 1,250 1,250 mcg PO QMONTH 05/03/25 Unknown History mcg (50,000 unit) capsule sacubitril 97 mg-valsartan 103 mg 0.5 tab PO DAILY 05/03/25 Unknown History tablet (Entresto) wheat dextrin 1 gram tablet 1 g PO DAILY 05/03/25 Unknown History (Benefiber (wheat dextrin)) pantoprazole 40 mg tablet,delayed 40 mg PO BID 30 days #60 tabs 08/18/25 Unknown Rx release apixaban 5 mg tablet (Eliquis) 5 mg PO BID 09/15/25 09/13/25 History metoprolol succinate 25 mg 12.5 mg (1/2 x 25 mg) PO QHS #45 09/16/25 Unknown Rx tablet,extended release 24 hr tabs Allergy/AdvReac Type Severity Reaction Status Date / Time No Known Allergies Allergy Verified 09/16/25 08:41 Family History Father Heart disease Sister Heart disease Brother Heart disease Mother Pancreas (digestive gland) works poorly Surgical History Hx of colonoscopy History of total left knee replacement History of bilateral cataract extraction Hx of atrioventricular node ablation History of partial nephrectomy (07/02/18) Presence of cardiac defibrillator History of tonsillectomy Social History household members: none current occupational status: retired Smoking Status: Former smoker how long ago did patient quit smokin alcohol intake: never substance use type: does not use caffeine: Yes Type: coffee Number of servings: 2 frequency: 1-2 times per week ROS Constitutional Constitutional: Denies fatigue, fever(s), poor appetite, weight gain or weight loss Gastrointestinal Gastrointestinal: Denies belching, bloating, change in bowel habits, change in stool character, chewing difficulty, coffee ground emesis, constipation, cramping, diarrhea, dyspepsia, dysphagia, early satiety, excessive flatus, fecal incontinence, heartburn, hematemesis, hematochezia, hemorrhoids, loose stools, melena, nausea, odynophagia, rectal bleeding, tenesmus, vomiting or weight changes Vital Signs Vital Signs Vital Signs: 09/16/25 08:19 09/16/25 08:19 09/16/25 08:58 Temperature 97.3 F L 97.3 F L Temperature Source Temporal Pulse Rate 70 70 Respiratory Rate 16 16 Respiratory Pattern Normal Blood Pressure 121/74 H 121/74 H Blood Pressure Mean 89 Blood Pressure Source Monitor Blood Pressure Position Semi-Fowlers Blood Pressure Location Right Arm Pulse Ox 99 99 Oxygen Delivery Method Room Air Room Air Weight Weight: 155 lb 3.287 oz Body Mass Index (BMI) 19.3 Physical Exam Const alert, oriented x3, no apparent distress and healthy appearing General Appearance: cooperative GI normal to inspection, nondistended, normoactive bowel sounds, soft to palpation, non-tender and non-distended Percussion: normal to percussion Rectal Exam: deferred Assessment & Plan Assessment/Plan (1) Dysphagia: (2) GERD (gastroesophageal reflux disease): (3) At high risk for aspiration: PLAN: Assessment and Plan Assessment and Plan (1) Dysphagia: Status: Acute Plan: Benito is an 80-year-old male patient here today for continued abdominal pain, loose stool and dysphagia. Patient having soft stool a few times per day despite using 1 teaspoon of fiber and Imodium 3 times per day. Stool testing and colonoscopy was negative for inflammation. His stool consistency has improved as it was liquid in the past. Recommended increasing his fiber supplement to 2 teaspoons/day and continuing Imodium. We may consider colestipol pending response to treatment. Regarding his difficulty swallowing, he is scheduled for EGD in about 2 weeks for evaluation of his esophagus. In the interim, he will continue pantoprazole 40 mg twice daily and speech therapy. Patient will follow-up after procedure. - Continue Imodium - Increase fiber dose - EGD - Continue PPI - Continue speech therapy - Follow-up after procedure (2) GERD (gastroesophageal reflux disease): Status: Acute (3) Abdominal pain: Status: Acute Qualifiers: Abdominal location: generalized Qualified Code(s): R10.84 - Generalized abdominal pain (4) Diarrhea: Status: Acute Qualifiers: Diarrhea type: unspecified type Qualified Code(s): R19.7 - Diarrhea, unspecified ]
--- NOTE | 2025-09-16 10:15 | OP.EGD_ITS ---
Patient Name: Tone Whittington Procedure Date: 09/16/2025 9:56 AM Date of : 1945 Age: 80 Procedure: Upper GI endoscopy Indications: Dysphagia Providers: Juan Diego Noriega DO Referring MD: Helen Lainez Medicines: Monitored Anesthesia Care Patient Profile: This is an 80 year old male. Refer to note in patient chart for documentation of history and physical. Patient has symptoms of dysphagia with both liquids and solids. Complications: No immediate complications. Procedure: Pre-Anesthesia Assessment: - Prior to the procedure, a History and Physical was performed, and patient medications and allergies were reviewed. The patient is competent. The risks and benefits of the procedure and the sedation options and risks were discussed with the patient. All questions were answered and informed consent was obtained. Patient identification and proposed procedure were verified by the physician in the pre-procedure area. Mental Status Examination: alert and oriented. Airway Examination: normal oropharyngeal airway and neck mobility. Respiratory Examination: clear to auscultation. CV Examination: normal. Prophylactic Antibiotics: The patient does not require prophylactic antibiotics. Prior Anticoagulants: The patient has taken no anticoagulant or antiplatelet agents except for NSAID medication. ASA Grade Assessment: II - A patient with mild systemic disease. After reviewing the risks and benefits, the patient was deemed in satisfactory condition to undergo the procedure. The anesthesia plan was to use monitored anesthesia care (MAC). Immediately prior to administration of medications, the patient was re-assessed for adequacy to receive sedatives. The heart rate, respiratory rate, oxygen saturations, blood pressure, adequacy of pulmonary ventilation, and response to care were monitored throughout the procedure. The physical status of the patient was re-assessed after the procedure. After obtaining informed consent, the endoscope was passed under direct vision. Throughout the procedure, the patient's blood pressure, pulse, and oxygen saturations were monitored continuously. The gastroscope was introduced through the mouth, and advanced to the second part of duodenum. The upper GI endoscopy was accomplished without difficulty. The patient tolerated the procedure well. Scope In: 10:02:02 AM Scope Out: 10:07:30 AM Total Procedure Duration Time 0 hours 5 minutes 28 seconds Findings: The Z-line was irregular and was found 39 cm from the incisors. Biopsies were taken with a cold forceps for histology. Verification of patient identification for the specimen was done. Estimated blood loss was minimal. Abnormal motility was noted in the lower third of the esophagus. The cricopharyngeus was normal. There is a decrease in motility of the esophageal body. The distal esophagus/lower esophageal sphincter is spastic, but gives up passage to the endoscope. A guidewire was placed and the scope was withdrawn. Dilation was performed with a Savary dilator with no resistance at 60 Fr. The dilation site was examined and showed mild improvement in luminal narrowing. Estimated blood loss was minimal. No gross lesions were noted in the entire examined stomach. No gross lesions were noted in the entire examined duodenum. Impression: - Z-line irregular, 39 cm from the incisors. Biopsied. - Abnormal esophageal motility, suspicious for achalasia. Dilated. - No gross lesions in the entire stomach. - No gross lesions in the entire examined duodenum. Recommendation: - Discharge patient to home. - Resume previous diet. - Continue present medications. - Await pathology results. Procedure Code(s): --- Professional --- 12075, Esophagogastroduodenoscopy, flexible, transoral; with insertion of guide wire followed by passage of dilator(s) through esophagus over guide wire 35493, 59,51, Esophagogastroduodenoscopy, flexible, transoral; with biopsy, single or multiple CPT copyright 2021 [employer]. All rights reserved. The codes documented in this report are preliminary and upon medical coder review may be revised to meet current compliance requirements. Juan Diego Noriega DO 09/16/2025 10:15:02 AM This report has been signed electronically. Number of Addenda: 0 Note Initiated On: 09/16/2025 9:56 AM
--- NOTE | 2025-09-16 10:15 | OP.PROVAT_ITS ---
09/16/2025 Helen Lainez [place] [id number] [place] [address] Re : Upper GI endoscopy procedure for Tone Hahnzahira Dear Dr. Lainez This procedure was performed on August. My impressions and recommendations are as follows: Impressions : - Z-line irregular, 39 cm from the incisors. Biopsied. - Abnormal esophageal motility, suspicious for achalasia. Dilated. - No gross lesions in the entire stomach. - No gross lesions in the entire examined duodenum. Recommendations : - Discharge patient to home. - Resume previous diet. - Continue present medications. - Await pathology results. My findings are described in the full procedure note, which is enclosed. If I can be of further assistance, please feel free to contact me at . Sincerely, Juan Diego Noriega, 09/16/2025 10:15:02 AM This report has been signed electronically.
--- NOTE | 2025-09-16 10:18 | PCM.POST.ANE ---
Anesthesia: Postop Eval I Current Vital Signs Temperature: 97.9 F Pulse Rate: 70 Blood Pressure: 106/68 Respiratory Rate: 16 Pulse Ox: 97 Oxygen Delivery Method: Room Air Assessment Airway patent: Yes Spontaneous unlabored respirations: Yes Mental status: Asleep nausea: No Vomiting: No Anesthesia Complication: No Fluid Hydration Crystalloid volume administer (ml): 300 Total IV fluid infused: 300 Progress Note Anesthesia document: Postop Eval 1 completed: Yes
--- NOTE | 2025-09-16 14:19 | PCM.POSTANE2 ---
Anesthesia Postop Eval I Sum Postop Eval Completion status Anesthesia document: Postop Eval 1 completed: Yes Anesthesia Postop Eval I Summary Anesthesia Postop Eval I Summary: Anesthesia Postop Eval I: Assessment Summary Airway patent Yes 09/16/25 10:19 [email or web address] Spontaneous unlabored Yes 09/16/25 10:19 [email or web address] respirations Mental status Asleep 09/16/25 10:19 [email or web address] nausea No 09/16/25 10:19 [email or web address] Vomiting No 09/16/25 10:19 [email or web address] Anesthesia Postop Eval I: Fluid Summary Crystalloid volume administer 300 09/16/25 10:19 [email or web address] (ml) Colloids volume administered ( ml) Blood Product volume administered (ml) Total IV fluid infused 300 09/16/25 10:19 [email or web address] Anesthesia Postop Eval I: Summary Notes Anesthesia Complication No 09/16/25 10:19 [email or web address] Anesthesia Complication Comment: Post-operative progress note Anesthesia: Postop Eval II Evaluation Mental status: Awake and Calm Pain Level: 1 nausea: No Vomiting: No Complications Anesthesia Complication: No
== END 2025-09-16 11:30 | disposition home or self-care (01) ==
LOC: EN 07:57 → AC 07:59
PROVIDERS: PCP Family Medicine; Referring Provider Family Medicine; Visit Provider Internal Medicine Gastroenterology
PROC: 0DJ08ZZ Inspection of Upper Intestinal Tract, Via Natural or Artificial Opening Endoscopic (ICD-10-PCS; CPT 43235; principal; 2025-09-16 09:10)
DX: R13.10 Dysphagia, unspecified (principal); J44.9 Chronic obstructive pulmonary disease, unspecified; I48.20 Chronic atrial fibrillation, unspecified; I10 Essential (primary) hypertension; Z87.891 Personal history of nicotine dependence; R19.7 Diarrhea, unspecified; K21.9 Gastro-esophageal reflux disease without esophagitis; E78.5 Hyperlipidemia, unspecified; Z45.02 Encounter for adjustment and management of automatic implantable cardiac defibrillator; Z79.899 Other long term (current) drug therapy; Z79.01 Long term (current) use of anticoagulants; Z96.652 Presence of left artificial knee joint; Z98.41 Cataract extraction status, right eye; Z98.42 Cataract extraction status, left eye; R10.84 Generalized abdominal pain; K22.89 Other specified disease of esophagus; K30 Functional dyspepsia; Z90.5 Acquired absence of kidney
CPT/HCPCS: 43248; 43239; 88305; C1769; J2405

== ENCOUNTER → 2025-09-20 | Outpatient (CLI) | payer MEDICARE, SELFPAY ==
--- NOTE | 2025-09-20 09:45 | VDLE_ITS ---
Reason For Study Reason For Study: S/P Ablation RIGHT LEFT CFV is compressible, spontaneous, phasic, competent CFV is compressible, spontaneous, phasic, competent, and demonstrates normal augmentation. and demonstrates normal augmentation. Procedure FV is compressible, spontaneous, phasic, competent and This is a venous duplex using B-mode, color flow and demonstrates normal augmentation. spectral Doppler. POP V is compressible, spontaneous, phasic, competent Exam performed in department. and demonstrates normal augmentation. T/P Trunk is compressible. PTV is compressible. LT PerV is compressible. 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 ASV at knee is NONCOMPRESSIBLE, extends from ablated GSV. VL/Venous Duplex US, Unilateral Interpretation Summary Deep veins of the left lower extremity are patent and compressible segmentally. There is no evidence of left lower extremity deep vein thrombosis. Left great saphenous vein and accessory saphenous vein occluded consistent with recent chemical ablation. Ordering Physician: Teresa Che Referring Physician: Helen Lainez Performed By: Kate Newell RVT
== END | disposition home or self-care (01) ==
LOC: CVS 09:45
PROVIDERS: PCP Family Medicine; Referring Provider Physician Assistant; Visit Provider Physician Assistant
DX: I87.2 Venous insufficiency (chronic) (peripheral) (principal); Z48.812 Encounter for surgical aftercare following surgery on the circulatory system
CPT/HCPCS: 93971